=== PATIENT | female | born 1950 | race Caucasian/White ===

== ENCOUNTER 2020-01-21 00:22 | Outpatient (CLI) | payer MEDICARE, SELFPAY ==
[2020-01-21 19:34] LABS: SARS-CoV-2 RNA PCR Negative
== END 2020-01-21 00:23 | disposition home or self-care (01) ==
LOC: ANHCOVIDDT 00:23
PROVIDERS: PCP Internal Medicine; Visit Provider Internal Medicine Gastroenterology
DX: Z01.812 Encounter for preprocedural laboratory examination (principal); Z20.828 Contact with and (suspected) exposure to other viral communicable diseases
CPT/HCPCS: 87635; C9803; U0003

== ENCOUNTER 2020-01-23 01:32 | Day surgery (SDC) | payer MEDICARE, SELFPAY ==
[2020-01-10 14:39] VITALS: BMI 25.9
[2020-01-23 07:51] VITALS: BP 110/82; PULSE 78; RESP 18; TEMP 36.7; O2SAT 100
--- NOTE | 2020-01-23 08:04 | WPDANESEPPF ---
Anes - Initial Pre Proc Eval Procedure: Operation Date: 01/23/20 08:30 Proposed Procedures p Esophagogastroduodenoscopy & Colonoscopy - Ryan Thao MD Date/Time: 01/23/20 08:04 Surgeon: Ryan Thao MD Pre Op Diagnosis: epigastric pain, change in bowel habits Patient Data Age: 69 Gender: F Height: 1.57 m Weight: 63.7 kg Last Vital Signs Temp 36.7 C 01/23/20 07:51 Pulse 78 01/23/20 07:51 Resp 18 01/23/20 07:51 BP 110/82 01/23/20 07:51 Pulse Ox 100 01/23/20 07:51 Allergies Allergy/AdvReac Type Severity Reaction Status Date / Time Penicillins Allergy Unknown Hives Verified 01/23/20 07:49 Sulfa (Sulfonamide Allergy Unknown Hives Verified 01/23/20 07:49 Antibiotics) Home Medications Medication Instructions Recorded Confirmed Type vitamin E mixed 400 unit capsule 400 unit PO DAILY 05/25/19 01/23/20 History pantoprazole 40 mg tablet,delayed 40 mg PO DAILY #90 tablet 09/24/19 01/23/20 Rx release rosuvastatin 40 mg tablet 40 mg PO DAILY #90 tablet 09/24/19 01/23/20 Rx atenolol 25 mg tablet 12.5 mg PO DAILY tablet 12/13/19 01/23/20 History cholestyramine-aspartame 4 gram 4 gm PO BID #231 gm 12/13/19 01/23/20 Rx oral powder lorazepam 0.5 mg tablet 0.5 mg PO DAILY PRN #30 tablet 12/13/19 01/23/20 Rx metformin 500 mg tablet 500 mg PO BID #180 tablet 12/19/19 01/23/20 Rx krill oil 500 mg PO DAILY 01/10/20 01/23/20 History lisinopril 5 mg PO DAILY 01/10/20 01/23/20 History valacyclovir 500 mg PO DAILY 01/10/20 01/23/20 History Patient hx anesthesia problems: none Family hx anesthesia problems: none PMFSH Past Medical History Medical History (Updated 01/21/20 @ 14:35 by Oseas Field DO) Diabetes Gastroesophageal reflux Hypertension Seizure UTI (urinary tract infection) Witnessed seizure-like activity Surgical History Surgical History History of cataract extraction Hx of appendectomy Hx of cholecystectomy Hx of hysterectomy, total Hx of tonsillectomy Social History Social History Smoking status: Former smoker Smoking end date: 05/30/05 Alcohol intake: current Anes - Eval Final PreProcedure Day of Procedure 01/23/20 08:04 Patient weight: overweight Heart: regular rate and rhythm Lungs: clear to auscultation and normal air movement Airway: Mallampati scale class II Neurological: alert and oriented Last oral intake: >/= 8 hours ASA classification: III Emergent: no Anesthetic plan: proceed Anesthesia type and monitoring: general GIVS and standard monitoring Informed Consent: The patient's anesthetic plan and its attendant risks and benefits were discussed with the patient/family/POA. Questions were solicited and answers provided to the satisfaction of the patient/family/POA.
[2020-01-23] MEDS: LACTATED RINGERS 1,000 ML 150 ML IV CONT (08:05)
[2020-01-23 08:14] LABS: Glucose Point of Care 112 (65-105)
--- NOTE | 2020-01-23 08:39 | WPDGICN ---
Assessment and Plan Assessment and plan (1) Encounter for diagnostic colonoscopy due to change in bowel habits: Code(s): R19.4 - Change in bowel habit Status: Acute Assessment and Plan: Patient is lower abdominal pain associated with narrowed stools. Alteration in her bowel habits. Some improvement on taking Questran. Plan is for a colonoscopy to evaluate more thoroughly. This may represent irritable bowel syndrome high fiber supplements are encourage. Further recommendations will be given after endoscopy. Continuing Questran appears appropriate for now. (2) Epigastric abdominal pain: Code(s): R10.13 - Epigastric pain Status: Acute Assessment and Plan: Patient has epigastric abdominal pain. A improving on increasing dose of pantoprazole. She does have a history of peptic ulcer disease. This may represent an acid reflux plan is for EGD to evaluate more thoroughly. GI Consult Note Consult date/time: 01/23/20 08:39 HPI: Isela Kendall is a 69 year old female seen in evaluation at the request of Dr Freddie Stanley. Patient reports irregular bowel movements for the last year. Associated with narrow stools. She also notices a vague lower abdominal discomfort. Patient had diarrhea in the spring but is improved upon taking Questran over recent weeks. She denies any weight loss. She denies any bleeding. Patient also complains of epigastric discomfort. She has a history of peptic ulcer disease. She previously on pantoprazole 40 mg p.o. daily this pain is improved somewhat on increasing pantoprazole to a b.i.d. dose. Patient denies any weight loss. Review of Systems Review of Systems: All systems reviewed & are unremarkable except as noted in HPI and below PMFSH Past Medical History Medical History Diabetes Gastroesophageal reflux Hypertension Seizure UTI (urinary tract infection) Witnessed seizure-like activity Surgical History Surgical History History of cataract extraction Hx of appendectomy Hx of cholecystectomy Hx of hysterectomy, total Hx of tonsillectomy Family History Family History Mother Family history of rheumatoid arthritis, Onset Age: 78 Family history of Alzheimer's disease, Onset Age: 78 Family history of heart disease in male family member before age 55 Patient's mother is , Onset Age: 78 Father Family history of Parkinson's disease, Onset Age: 79 Sibling Family history of coronary artery disease Family history of heart disease in male family member before age 55 Other Family history of cardiovascular disease Family history of malignant neoplasm Hypertension Social History Social History Smoking status: Former smoker Smoking end date: 05/30/05 Alcohol intake: current Meds Home Medications and Allergies Home Medications Medication Instructions Recorded Confirmed Type vitamin E mixed 400 unit capsule 400 unit PO DAILY 05/25/19 01/23/20 History pantoprazole 40 mg tablet,delayed 40 mg PO DAILY #90 tablet 09/24/19 01/23/20 Rx release rosuvastatin 40 mg tablet 40 mg PO DAILY #90 tablet 09/24/19 01/23/20 Rx atenolol 25 mg tablet 12.5 mg PO DAILY tablet 12/13/19 01/23/20 History cholestyramine-aspartame 4 gram 4 gm PO BID #231 gm 12/13/19 01/23/20 Rx oral powder lorazepam 0.5 mg tablet 0.5 mg PO DAILY PRN #30 tablet 12/13/19 01/23/20 Rx metformin 500 mg tablet 500 mg PO BID #180 tablet 12/19/19 01/23/20 Rx krill oil 500 mg PO DAILY 01/10/20 01/23/20 History lisinopril 5 mg PO DAILY 01/10/20 01/23/20 History valacyclovir 500 mg PO DAILY 01/10/20 01/23/20 History Allergies Allergy/AdvReac Type Severity Reaction Status Date / Time Penicillins Allergy Unknown Hives Verified 12/29
[2020-01-23] MEDS: BENZOCAINE (*SP) 60 ML SPRAY CAN (HURRICAINE) 1 SPRAY MUCOUS MEM (08:54)
[2020-01-23 09:25] VITALS: BP 69/34; PULSE 84; RESP 20; O2SAT 94
[2020-01-23 09:30] VITALS: BP 102/58; PULSE 80; RESP 20; O2SAT 95
--- NOTE | 2020-01-23 09:37 | SUR.PHASEII ---
YENI MARADIAGA WITH PT. TREATED LOW BP 64/34, NOW 102/58
[2020-01-23 09:40] VITALS: BP 81/47; PULSE 80; RESP 20; O2SAT 95
[2020-01-23 09:50] VITALS: BP 106/82; PULSE 75; RESP 20; O2SAT 100
[2020-01-23 10:00] VITALS: BP 117/80; PULSE 75; RESP 20; O2SAT 100
== END 2020-01-23 10:18 | disposition home or self-care (01) ==
PROVIDERS: PCP Internal Medicine; Visit Provider Internal Medicine Gastroenterology
PROC: 0DJ08ZZ Inspection of Upper Intestinal Tract, Via Natural or Artificial Opening Endoscopic (ICD-10-PCS; CPT 43235; principal; 2020-01-23 08:30)
DX: R19.4 Change in bowel habit (principal); R10.13 Epigastric pain; K64.8 Other hemorrhoids; K27.9 Peptic ulcer, site unspecified, unspecified as acute or chronic, without hemorrhage or perforation; K21.9 Gastro-esophageal reflux disease without esophagitis; I10 Essential (primary) hypertension; E11.9 Type 2 diabetes mellitus without complications; Z87.891 Personal history of nicotine dependence; Z79.84 Long term (current) use of oral hypoglycemic drugs
CPT/HCPCS: 43239; 45378; 87081; J2704; J7120

== ENCOUNTER 2020-07-03 13:40 | Outpatient (CLI) | payer MEDICARE, SELFPAY ==
--- NOTE | ~2020-07-03 | CT_ITS ---
EXAMINATION: CT lung screening DATE: 07/03/2020 14:33 INDICATION: Central history of nicotine dependence. TECHNIQUE: Computed tomography (CT) of the chest was performed without intravenous contrast. The dose -length product was 67.05 mGy-cm. Automated exposure control and iterative reconstruction technique w ere employed. COMPARISON: CT dated 06/22/2019 FINDINGS: Heart size normal. No significant pleural or pericardial effusion. No thoracic lymphadenopa thy. Status post cholecystectomy. Stable 2 mm right upper lobe nodule, image 14. No significant nielson e to 2 mm left upper lobe nodule. Calcified granuloma right lower lobe. Stable 5 mm right major fissu ral nodule. Mild thoracic spondylosis. No new pulmonary nodules or masses. IMPRESSION: 1. Lung-RADS category 2: Benign appearance or behavior. Continue annual screening with noncontrast lo w-dose chest CT in 12 months. Reviewed, dictated and finalized at location A. [employer] CONSULTANT IMPRESSION: 1. Lung-RADS category 2: Benign appearance or behavior. Continue annual screeni ng with noncontrast low-dose chest CT in 12 months.
== END 2020-07-03 13:41 | disposition home or self-care (01) ==
LOC: ANHIMG 13:43
PROVIDERS: PCP Internal Medicine; Visit Provider Nurse Practitioner
DX: Z12.2 Encounter for screening for malignant neoplasm of respiratory organs (principal); Z87.891 Personal history of nicotine dependence
CPT/HCPCS: 71271

== ENCOUNTER 2020-12-26 08:49 | Outpatient (CLI) | payer MEDICARE, SELFPAY ==
--- NOTE | ~2020-12-26 | XR_ITS ---
EXAMINATION: XR chest 2V EXAM DATE: 12/26/2020 09:05 INDICATION: R06.02 - Shortness of breath 2 weeks. TECHNIQUE: Frontal and lateral projections of the chest obtained and reviewed. Comparison is made to prior examination from 08/31/2018. FINDINGS: The lungs are clear. There are no pleural effusions. The cardiomediastinal silhouette is within normal limits. There is no pneumothorax suspected. The bones and soft tissues are unremarkab le. There are cholecystectomy clips. IMPRESSION: No acute cardiopulmonary findings. Reviewed, dictated and finalized at location B.
== END 2020-12-26 08:50 | disposition home or self-care (01) ==
PROVIDERS: PCP Internal Medicine; Visit Provider Internal Medicine
DX: R06.02 Shortness of breath (principal)
CPT/HCPCS: 71046

== ENCOUNTER 2020-12-31 09:29 | Outpatient (CLI) | payer MEDICARE, SELFPAY ==
--- NOTE | 2021-01-02 14:13 | WPDHOLTEREM ---
Holter/Event Monitor Holter/Event Monitor Date of procedure: 12/31/20 Holter/Event Procedure: 24 Hr Holter Monitor Indications: Tachycardia Conclusion: 1. 24 hour holter monitor on 12/31/20. 2. Underlying rhythm is sinus rhythm. HR range 60-133 bpm; average HR 83. 3. There are 14 supraventricular premature complexes and 1 supraventricular couplet and 1 supraventricular triplet. No supraventricular tachycardia. 4. There are 5 premature ventricular complexes. No ventricular tachycardia. 5. No sinoatrial or atrioventricular blocks. No significant pauses greater than 2 seconds. 6. No symptoms available for correlation.
== END 2020-12-31 09:30 | disposition home or self-care (01) ==
PROVIDERS: PCP Internal Medicine; Visit Provider Internal Medicine
DX: R00.0 Tachycardia, unspecified (principal)
CPT/HCPCS: 93225; 93226

== ENCOUNTER 2021-03-20 06:38 | Outpatient (CLI) | payer MEDICARE, SELFPAY ==
--- NOTE | ~2021-03-20 | XR_ITS ---
XR shoulder RT min 2V 03/20/2021 07:11 INDICATION: Right shoulder pain PROCEDURE: 4 views right shoulder COMPARISON: No prior studies for comparison. FINDINGS: Fracture, dislocation or subluxation is not identified. The soft tissues appear within norm al limits. No foreign bodies are identified. IMPRESSION: 1: NO ACUTE BONE OR JOINT ABNORMALITY IDENTIFIED. Reviewed, dictated and finalized at location B.
--- NOTE | ~2021-03-20 | MR_ITS ---
EXAMINATION: MR shoulder RT wo con DATE: 03/20/2021 07:56 INDICATION: Pain in unspecified shoulder. TECHNIQUE: Magnetic resonance imaging (MRI) of the right shoulder was performed without intravenous c ontrast. Sequences included axial PD-weighted FS FSE, coronal oblique PD-weighted FS FSE and T2-weigh kristopher FS FSE, and sagittal oblique T2-weighted FS FSE and T1-weighted FSE. COMPARISON: Right shoulder radiographs 03/20/2021 FINDINGS: Coracoacromial arch: The acromion undersurface is flat in morphology (type I). There is severe acromioclavicular joint ost eoarthritis including inferiorly directed osteophytes. There is mild subacromial/subdeltoid bursitis. Rotator cuff: There is moderate supraspinatus and infraspinatus tendinopathy. Teres minor tendon is normal. There i s a bursal sided partial-thickness tear of subscapularis tendon. There is no asymmetric fatty atrophy of the rotator cuff muscle bellies. Biceps tendon and glenoid labrum: Biceps tendon is in bicipital groove. There is tendinopathy and partial tear of proximal biceps tendo n. A portion of the biceps tendon is medially subluxed into the subscapularis tendon tear. There is e xtensive tearing of the glenoid labrum anterior and posterior to the biceps anchor (SLAP tear). Fluid: There is a moderate-sized glenohumeral joint effusion. Bones/cartilage: There is cartilage surface irregularity of glenoid and humeral head with tiny osteophytes. IMPRESSION: 1. Bursal-sided partial-thickness tear of subscapularis tendon. 2. Partial tear of biceps tendon, a portion of which is medially subluxed into the subscapularis tend on tear. 3. Mild glenohumeral joint chondrosis. SLAP tear. 4. Severe acromioclavicular joint osteoarthritis. 5. Moderate-sized glenohumeral joint effusion. 6. Mild subacromial/subdeltoid bursitis. Reviewed, dictated and finalized at location A. IMPRESSION: 1. Bursal-sided partial-thickness tear of subscapularis tendon. 2. Partial tear of biceps tendon, a portion of which is medially subluxed into the subscapularis tendon tear. 3. Mild glenohumeral joint chondrosis. SLAP tear. 4. Severe acromioclavicular joint osteoarthritis. 5. Moderate-sized glenohumeral joint effusion. 6. Mild subacromial/subdeltoid bursitis.
[2021-03-20 08:29] LABS: Basophils Percent Auto 0.6 % (0.2-1.2); Eosinophils Absolute Auto 0.2 K/mm3 (0-0.3); Eosinophils Percent Auto 3.2 % (0-4.4); Hemoglobin 9.8 g/dL (12.0-15.0); Immature Granulocyte Absolute 0.01 K/mm3 (0.00-0.031); Immature Granulocyte Percent A 0.2 % (0-0.5); Lymphocytes Absolute Auto 1.92 K/mm3 (0.9-3.2); Lymphocytes Percent Auto 31.1 % (18.3-44.2); Mean Corpuscular HGB Conc 30.6 g/dl (32-36); Mean Corpuscular Hemoglobin 26.7 pg (26-34); Mean Corpuscular Volume 87.2 fl (80-100); Mean Platelet Volume 10.3 fl (7.4-10.4); Monocytes Absolute Auto 0.6 K/mm3 (0.1-0.6); Monocytes Percent Auto 9.7 % (2.6-8.5); Neutrophils Absolute Auto 3.4 K/mm3 (1.3-6.7); Neutrophils Percent Auto 55.2 % (45.5-73.1); Platelet Count Result 294 k/mm3 (150-375); Red Blood Count 3.67 M/mm3 (4.2-5.4); Red Cell Distribution Width 18.5 % (11.5-14.5); White Blood Count 6.2 K/mm3 (4.5-10.0)
[2021-03-20 08:47] LABS: Iron 33 ug/dL (37-170)
[2021-03-20 08:55] LABS: Percent Iron Saturation 7 % (20-50)
== END 2021-03-20 06:39 | disposition home or self-care (01) ==
PROVIDERS: PCP Internal Medicine; Visit Provider Internal Medicine
DX: D64.9 Anemia, unspecified (principal); M19.011 Primary osteoarthritis, right shoulder; M75.51 Bursitis of right shoulder; M25.411 Effusion, right shoulder; S43.431A Superior glenoid labrum lesion of right shoulder, initial encounter; X58.XXXA Exposure to other specified factors, initial encounter
CPT/HCPCS: 36415; 73030; 73221; 83540; 83550; 85025

== ENCOUNTER 2021-04-02 11:09 | Outpatient (CLI) | payer MEDICARE, SELFPAY ==
--- NOTE | ~2021-04-02 | MMUS_ITS ---
EXAMINATION: MM diagnostic mayra BI w julio, US breast RT limited HISTORY: Breast pain TECHNIQUE: Additional 3-D tomosynthesis images of the breasts were performed and synthetic 2-D images were generated. CAD analysis was submitted and interpreted. High resolution Limited right breast ult rasound was performed. COMPARISON: Comparison to multiple prior studies sequentially, with oldest reviewed study dated 02/08. BREAST PARENCHYMAL COMPOSITION: Breast composed of scattered areas of fibroglandular density FINDINGS: MAMMOGRAPHIC FINDINGS: There are no suspicious masses, calcifications or architectural distortion in either breast to sugges t malignancy. ULTRASOUND: Limited right breast ultrasound: At 9:00, 2 cm from the nipple there is a 5 mm cyst. At 10:00, 3 cm f rom the nipple, there is a 4 mm cyst. No suspicious masses to suggest malignancy. IMPRESSION: 1. No evidence for malignancy in either breast. 2. Routine yearly screening mammogram and regular clinical breast examination are recommended. BI-RADS Category 2: Benign finding(s). Reviewed, dictated and finalized at location A. IMPRESSION: 1. No evidence for malignancy in either breast. 2. Routine yearly screening mammogram and regular clinical breast examination a re recommended. BI-RADS Category 2: Benign finding(s).
== END 2021-04-02 11:10 | disposition home or self-care (01) ==
LOC: ANHIMG 11:10
PROVIDERS: PCP Internal Medicine; Visit Provider Internal Medicine
DX: N64.4 Mastodynia (principal); R92.8 Other abnormal and inconclusive findings on diagnostic imaging of breast
CPT/HCPCS: 76642; 77062; 77066; G0279

== ENCOUNTER → 2021-05-06 02:26 | Outpatient (CLI) | payer MEDICARE, SELFPAY ==
[2021-05-06 13:14] LABS: Influenza Control Positive
[2021-05-06 20:25] LABS: SARS-CoV-2 RNA PCR Negative
== END ==
PROVIDERS: PCP Internal Medicine; Visit Provider Internal Medicine
DX: R68.89 Other general symptoms and signs (principal); Z20.822 Contact with and (suspected) exposure to COVID-19
CPT/HCPCS: 87804; C9803; U0003; U0005

== ENCOUNTER 2022-01-11 10:37 | Outpatient (CLI) | payer MEDICARE, SELFPAY ==
--- NOTE | ~2022-01-11 | CT_ITS ---
EXAMINATION: CT lung screening DATE: 01/11/2022 11:06 INDICATION: Personal history of nicotine dependence, prior smoker with 35 pack year history TECHNIQUE: Computed tomography (CT) of the chest was performed without intravenous contrast. The dose -length product (DLP) was 72.82 mGy-cm. Automated exposure control and iterative reconstruction techn ique were employed. COMPARISON: 07/03/2020 FINDINGS: There are stable pulmonary nodules measuring up to 2 mm. A 4 mm fissural lymph node is note d in the major fissure on the right. The lungs are free of acute opacities. No pleural effusion or pn eumothorax. No pathologically enlarged thoracic lymph nodes are identified. The heart size is normal. The gallbladder is surgically absent. There is mild thoracic spondylosis. IMPRESSION: 1. Lung-RADS category 2: Benign appearance or behavior. Continue annual screening with noncontrast lo w-dose chest CT in 12 months. Reviewed, dictated and finalized at location A. IMPRESSION: 1. Lung-RADS category 2: Benign appearance or behavior. Continue annual screeni ng with noncontrast low-dose chest CT in 12 months.
== END 2022-01-11 10:38 | disposition home or self-care (01) ==
PROVIDERS: PCP Internal Medicine; Visit Provider Internal Medicine
DX: Z12.2 Encounter for screening for malignant neoplasm of respiratory organs (principal); Z87.891 Personal history of nicotine dependence
CPT/HCPCS: 71271

== ENCOUNTER 2022-01-15 09:52 | Outpatient (CLI) | payer MEDICARE, SELFPAY ==
--- NOTE | ~2022-01-15 | NM_ITS ---
EXAMINATION: NM yaniv stress w perfusion DATE: 01/15/2022 12:29 INDICATION: Chest pain TECHNIQUE: Rest images were obtained following intravenous administration of 10.4 mCi Tc99m tetrofosm in (Myoview). The patient was infused intravenously with Lexiscan (Regadenoson). Then, 33.6 mCi Tc99m tetrofosmin (Myoview) was administered intravenously, and stress images were obtained. Data was joann nstructed into short axis and horizontal and vertical long axis SPECT images. Gated SPECT images were also obtained. COMPARISON: None. FINDINGS: There is no definite reversible or fixed perfusion abnormality to suggest ischemia or infar ction. There is normal left ventricular chamber size, wall motion and ejection fraction. Left ventr icular ejection fraction measures 66%. IMPRESSION: 1. Normal myocardial perfusion at rest and during stress. 2. Left ventricular ejection fraction measuring 66%. Reviewed, dictated and finalized at location A.
--- NOTE | 2022-01-15 10:34 | EST_ITS ---
Patient Info Name: Isela Kendall Age: 71 years : 1950 Gender: Female Ht: 62 in Wt: 142 lbs BSA: 1.69 m2 HR: 78 bpm BP: 136 / 86 mmHg Heart Rhythm: Sinus Rhythm Exam Date: 01/15/2022 11:19 AM Exam Location: [facility] Stress Patient Status: Outpatient Admit Date: 01/15/2022 Staff Ordering Physician: Freddie Stanley DO Attending Provider: Freddie Stanley DO Exercise Technologist: Evita Beckham CT Exercise Physician: Ezequiel Grayson DO Exam Type: CA stress yaniv w NM Study Info Indications R07.89 - Other chest pain A regadenoson stress test was performed. Summary 1. 1. Negative lexiscan stress test for ischemic ST changes by ECG criteria. 2. 2. Stable hemodynamics throughout the test. 3. 3. Nuclear scan to follow and will be reported separately. Please correlate with it. 4. 4. Patient informed of the above results. Protocol: Lexiscan Stress ECG Details Stage: REST Duration (min): 1 min : 7 sec HR (bpm): 77 SBP (mmHg): 136 DBP (mmHg): 86 Stage: REST Duration (min): 9 min : 2 sec HR (bpm): 82 SBP (mmHg): 136 DBP (mmHg): 86 Stage: STAGE 1 Duration (min): 0 min : 59 sec HR (bpm): 105 SBP (mmHg): 143 DBP (mmHg): 87 Stage: RECOVERY Duration (min): 1 min : 0 sec HR (bpm): 99 SBP (mmHg): 143 DBP (mmHg): 87 Stage: RECOVERY Duration (min): 2 min : 0 sec HR (bpm): 97 SBP (mmHg): 143 DBP (mmHg): 87 Stage: RECOVERY Duration (min): 3 min : 0 sec HR (bpm): 93 SBP (mmHg): 131 DBP (mmHg): 83 Stage: RECOVERY Duration (min): 3 min : 8 sec HR (bpm): 94 SBP (mmHg): 131 DBP (mmHg): 83 Rest HR: 82 bpm Peak HR: 105 bpm Rest Sys BP: 136 mmHg Peak Sys BP: 143 mmHg Max Pred HR: 151 bpm % Max Pred HR: 70 % Target HR: 128 bpm Max RPP: 15,015 bpm*mmHg Termination Reason: Completed protocol Cardiac Symptoms: Shortness of breath Total Time: 1 min : 0 sec Rest Silverman BP: 86 mmHg Peak Silverman BP: 87 mmHg Total Dose: 0.4 mg Resting ECG Sinus rhythm. Stress ECG No ST changes. Arrhythmias None. Report Signatures
== END 2022-01-15 09:53 | disposition home or self-care (01) ==
PROVIDERS: PCP Internal Medicine; Visit Provider Internal Medicine
DX: R07.89 Other chest pain (principal)
CPT/HCPCS: 78452; 93017; A9502

== ENCOUNTER 2022-02-22 16:32 | Emergency (ER) | payer MEDICARE, SELFPAY ==
[2022-02-22 16:55] VITALS: BP 159/95; PULSE 79; RESP 16; TEMP 36.5; O2SAT 98
[2022-02-22 17:09] VITALS: BP 159/95; PULSE 79; RESP 16; TEMP 36.5; O2SAT 98
--- NOTE | 2022-02-22 17:16 | ED.SKABFB ---
HPI - Skin/Abscess/Foreign Bdy General Chief complaint: Skin/Abscess/Foreign Body Stated complaint: bite on right leg Time Seen by Provider: 02/22/22 17:15 Source: patient, RN notes reviewed and old records reviewed Mode of arrival: ambulatory Limitations: no limitations History of Present Illness HPI narrative: 71-year-old female who [facility] with complaints of being bitten by some type of insect on Tuesday last week to the right lower leg at [place] area with area remaining tender to palpation with localized redness bruising type of skin around bite. Patient does not have warmth to the tissue area but is concerned due to being diabetic. Patient reports that she did kill a brown recluse spider the same day when she was cleaning under bed. patient denies any fevers, chills or sweats, denies any acute pain at site. Patient reports that she just completed a Medrol dose pack that was ordered by her orthopedic doctor. complaint: insect bite/sting Onset (ago): day(s) (5 days ago) Related Data Home Medications Medication Instructions Recorded Confirmed krill oil 500 mg capsule 500 mg PO DAILY 01/10/20 02/22/22 cholecalciferol (vitamin D3) 25 25 mcg PO DAILY 06/04/21 02/22/22 mcg (1,000 unit) capsule vitamins A,C,T-dzen-myptvu 2,148 2 tablet PO BID 06/04/21 02/22/22 mcg-113 mg-45 mg-17.4 mg tablet (PreserVision AREDS) meloxicam 7.5 mg tablet 7.5 mg PO DAILY 02/22/22 02/22/22 Allergies Allergy/AdvReac Type Severity Reaction Status Date / Time Penicillins Allergy Severe Anaphylaxis Verified 02/22/22 17:02 Sulfa (Sulfonamide Allergy Severe Anaphylaxis Verified 02/22/22 17:02 Antibiotics) Review of Systems Review of Systems: CONSTITUTIONAL: Denies fever, chills, or sweats. EYES: Denies visual changes, redness, or discharge. ENT: Denies rhinorrhea, congestion, sore throat, or otalgia. CARDIOVASCULAR: Denies chest pain, palpitations, or edema. RESPIRATORY: Denies cough or dyspnea. GASTROINTESTINAL: Denies abdominal pain, nausea, vomiting, or diarrhea. GENITOURINARY: Denies dysuria or hematuria. SKIN: Positive for insect bite to right lower leg at t[place]res area with some surrounding red/bruising type of tissue around bite. MUSCULOSKELETAL: Denies back pain, joint pain, or myalgia. NEUROLOGIC: Denies headache, numbness, or weakness. PSYCHIATRIC: Denies anxiety or depression. All systems reviewed & are unremarkable except as noted in HPI and below PMFSH Past Medical History Medical History Acute cholecystitis Arthritis Benign paroxysmal positional vertigo of left ear BMI 25.0-25.9,adult BMI 28.0-28.9,adult Breast cancer screening Chest discomfort Cholecystitis Chronic cholecystitis Colon cancer screening Diabetes Encounter for Routine Gynecological Examination FHx: hemochromatosis Gallbladder disorder Gastroesophageal reflux Generalized headaches HSV (herpes simplex virus) infection Hypercholesteremia Hyperglycemia Hypertension Low back pain On fci drug therapy Pain of both hip joints Personal history of nicotine dependence Preoperative clearance Primary skin basal cell carcinoma Retina disorder, right Right rotator cuff tear RUQ abdominal pain Screening for hypothyroidism Screening for osteoporosis Seizure Serum calcium elevated Skin cancer UTI (urinary tract infection) UTI symptoms Vaginal delivery x2 Witnessed seizure-like activity one time Surgical History Surgical History History of bilateral tubal ligation 1979 History of cataract extraction bilateral History of colposcopy 2007 History of gynecologic surgery 2007, cervical cryosurgery History of left oophorectomy History of right oophorectomy 1987 History of tonsillectomy and adenoidectomy 1963 Hx of appendectomy 1981 Hx of cholecystectomy 2017 Hx of hysterectomy, total 1981 Hx of LASIK right eye
== END 2022-02-22 17:43 | disposition home or self-care (01) ==
PROVIDERS: Emergency Provider Registered Nurse; PCP Internal Medicine
DX: S80.861A Insect bite (nonvenomous), right lower leg, initial encounter (principal); W57.XXXA Bitten or stung by nonvenomous insect and other nonvenomous arthropods, initial encounter; E11.9 Type 2 diabetes mellitus without complications; K21.9 Gastro-esophageal reflux disease without esophagitis; E78.00 Pure hypercholesterolemia, unspecified; I10 Essential (primary) hypertension; Z85.828 Personal history of other malignant neoplasm of skin; Z98.42 Cataract extraction status, left eye; Z98.41 Cataract extraction status, right eye; M19.90 Unspecified osteoarthritis, unspecified site
CPT/HCPCS: 99213; G0463

== ENCOUNTER → 2022-02-27 08:48 | Outpatient (CLI) | payer MEDICARE, SELFPAY ==
--- NOTE | ~2022-02-27 | MR_ITS ---
EXAMINATION: MR lumbar spine wo con DATE: 02/27/2022 09:26 INDICATION: Chronic low back pain. TECHNIQUE: Magnetic resonance imaging (MRI) of the lumbar spine was performed without intravenous con trast. Sequences included sagittal T2-weighted FSE, sagittal T2-weighted FS FSE, sagittal T1-weighted FSE, and axial T2-weighted FSE. COMPARISON: None FINDINGS: There is 5 degrees levocurvature of lumbar spine. Vertebral body heights are normal. There is mildly decreased disc height at L1-L2. The distal spinal cord signal intensity is normal. The conu s medullaris is at L1-L2. The following disc levels are specifically discussed: L1-L2: The disc is bulging. There is mild bilateral facet joint osteoarthritis. There is mild bilater al neural foraminal stenosis. There is mild central canal stenosis. L2-L3: The disc is bulging. There is mild bilateral facet joint osteoarthritis. There is mild left ne ural foraminal stenosis. There is mild central canal stenosis. L3-L4: The disc is bulging. There is severe bilateral facet joint osteoarthritis. There is mild bilat eral neural foraminal stenosis. There is mild central canal stenosis. L4-L5: There is mildly bulging and has an annular fissure. There is severe bilateral facet joint oste oarthritis. There is mild bilateral neural foraminal stenosis. There is no central canal stenosis. L5-S1: The disc does not extend beyond the endplate margin. There is severe bilateral facet joint ost eoarthritis. There is mild bilateral neural foraminal stenosis. There is no central canal stenosis. IMPRESSION: 1. Mild lumbar spondylosis. Reviewed, dictated and finalized at location A. IMPRESSION: 1. Mild lumbar spondylosis.
== END ==
PROVIDERS: PCP Internal Medicine; Visit Provider Orthopaedic Surgery
DX: M47.896 Other spondylosis, lumbar region (principal)
CPT/HCPCS: 72148

== ENCOUNTER 2022-10-19 08:06 | Outpatient (CLI) | payer MEDICARE, SELFPAY ==
--- NOTE | ~2022-10-19 | XR_ITS ---
EXAMINATION: XR shoulder RT min 2V DATE: 10/19/2022 08:33 INDICATION: Right shoulder pain. TECHNIQUE: 3 views of right shoulder were obtained. COMPARISON: Right shoulder radiographs 03/20/2021 FINDINGS: Bone alignment is normal. No fracture. There is mild osteoarthritis of glenohumeral joint a nd severe osteoarthritis of acromioclavicular joint. IMPRESSION: 1. Polyarticular osteoarthritis. Reviewed, dictated and finalized at location A.
== END 2022-10-19 08:07 | disposition home or self-care (01) ==
LOC: CHSIMG 08:09
PROVIDERS: PCP Internal Medicine; Visit Provider Orthopaedic Surgery
DX: M25.511 Pain in right shoulder (principal); M19.011 Primary osteoarthritis, right shoulder
CPT/HCPCS: 73030

== ENCOUNTER → 2022-10-29 07:24 | Outpatient (CLI) | payer MEDICARE, SELFPAY ==
--- NOTE | ~2022-10-29 | MR_ITS ---
MRI of the right shoulder Technique: Axial proton-density fat-sat images, coronal proton density fat-sat and T2 fat-sat images, and sagittal T1-weighted and T2 fat-sat images were acquired. Clinical History: Rotator cuff tear COMPARISON: 03/20/2021 Findings: There is advanced degenerative change of the AC joint, with subacromial spur and bony produ ctive change at the distal clavicle. Coracoclavicular, coracoacromial, and coracohumeral ligaments ar e intact. There is moderate tendinosis of the distal supraspinatus tendon, without definite partial or full-thi ckness tear. There is mild infraspinatus tendinosis. There is mild subscapularis tendinosis. Tendon o f the long head of the biceps is intact. There is probable degenerative attenuation of the superior labrum extending to the anterosuperior por tion. Inferior glenohumeral ligament is intact. There is minimal glenohumeral joint effusion. No significan t degenerative change identified. No fluid distention of the subacromial/subdeltoid bursa. No muscle atrophy or edema. Impression: Rotator cuff tendinosis diffusely. No definite partial or full-thickness tear. Degenerative attenuation of the superior labrum extending to the anterosuperior portion. Advanced AC joint degenerative change. Reviewed, dictated and finalized at [facility]. Impression: Rotator cuff tendinosis diffusely. No definite partial or full-thickness tear. Degenerative attenuation of the superior labrum extending to the anterosuperior portion. Advanced AC joint degenerative change.
== END ==
PROVIDERS: PCP Internal Medicine; Visit Provider Orthopaedic Surgery
DX: M75.101 Unspecified rotator cuff tear or rupture of right shoulder, not specified as traumatic (principal); M19.011 Primary osteoarthritis, right shoulder
CPT/HCPCS: 73221

== ENCOUNTER 2022-12-04 08:10 | Outpatient (CLI) | payer MEDICARE, SELFPAY ==
--- NOTE | ~2022-12-04 | MM_ITS ---
EXAMINATION: MM screening mayra BI w julio HISTORY: Screening mammogram TECHNIQUE: Craniocaudal and mediolateral oblique 3-D tomosynthesis images were obtained and synthetic 2-D images were generated. CAD analysis was submitted and interpreted. COMPARISON: 04/02/2021 BREAST PARENCHYMAL COMPOSITION:There are scattered areas of fibroglandular density. FINDINGS: No suspicious mass, calcification, or architectural distortion are identified in either juana ast to suggest malignancy. There has been no suspicious interval change. IMPRESSION: No mammographic evidence of malignancy. Recommend routine screening mammography in one year. BI-RADS Category 1: Negative Reviewed, dictated and finalized at location .
== END 2022-12-04 08:11 | disposition home or self-care (01) ==
LOC: ANHIMG 08:14
PROVIDERS: PCP Family Medicine; Visit Provider Family Medicine
DX: Z12.31 Encounter for screening mammogram for malignant neoplasm of breast (principal)
CPT/HCPCS: 77063; 77067

== ENCOUNTER 2023-05-09 13:44 | Outpatient (CLI) | payer MEDICARE, SELFPAY ==
--- NOTE | ~2023-05-09 | DEXA_ITS ---
Bone Density Report Name: LISSET GARCIA Age: 73 Sex: Female Ethnicity: White Date of : 1950 Indication: postmenopausal; screening for osteoporosis; prior fracture; hysterectomy; Referring Provider: NADEEM LERNER Study: Bone densitometry was performed. Exam Date: May 09, 2023 Accession number: [id number] Bone Density: Region BMD T-score Z-score Classification AP Spine(L1-L4) 1.068 0.2 2.4 Normal Femoral Neck (Left) 0.825 -0.2 1.6 Normal Total Hip (Left) 0.923 -0.2 1.4 Normal Femoral Neck (Right) 0.745 -0.9 0.9 Normal Total Hip (Right) 0.864 -0.6 0.9 Normal Total Hip Mean 0.893 -0.4 1.2 Normal World Health Organization criteria for BMD impression classify patients as: Normal (T-score at or above -1.0), Osteopenia (T-score between -1.0 and -2.5), or Osteoporosis (T-score at or below -2.5). 10-year Fracture Risk: FRAX not reported because: All T-scores for Spine Total, Hip Total, Femoral Neck at or above -1.0 Clinical Information Provided by Patient: Has had a low trauma fracture Has used the following medications: Vitamin D Has the following medical conditions: Hysterectomy Patient maximum height was 62.5 Menopause Age: 35 Onset of menses at age 13 Number of children 2 Impression: The patient has normal bone mass. The patient has risk factors, including: previous fracture. Discussion: BONE DENSITY IS ABOVE THE MINIMUM DESIRABLE LEVEL AT ALL SKELETAL SITES TESTED. This patient?s bone mineral density is above the minimum desirable level (T-score -1.0 or better) at all sites measured. The patient should follow a healthful lifestyle (good nutrition with adequate calcium and vitamin D, and appropriate weight-bearing exercise). Follow-Up: Consider repeating this study in 5 years or sooner if there is some new clinical indication. Reported by: ASHVIN on 05/09/2023 2:19:00 PM. Reviewed, dictated and finalized at [facility]
== END 2023-05-09 13:45 | disposition home or self-care (01) ==
LOC: ANHIMG 13:46
PROVIDERS: PCP Family Medicine; Visit Provider Family Medicine
DX: Z78.0 Asymptomatic menopausal state (principal); D50.9 Iron deficiency anemia, unspecified; D64.9 Anemia, unspecified; F41.9 Anxiety disorder, unspecified; M54.40 Lumbago with sciatica, unspecified side
CPT/HCPCS: 77080

== ENCOUNTER 2024-02-22 08:45 | Outpatient (CLI) | payer MEDICARE, SELFPAY ==
--- NOTE | ~2024-02-22 | MM_ITS ---
EXAMINATION: MM screening mayar BI w julio HISTORY: Screening TECHNIQUE: Craniocaudal and mediolateral oblique 3-D tomosynthesis images were obtained and synthetic 2-D images were generated. CAD analysis was submitted and interpreted. COMPARISON: Comparison to multiple prior studies sequentially, with oldest reviewed study dated 08/2020. BREAST PARENCHYMAL COMPOSITION: Not dense: There are scattered areas of fibroglandular density. FINDINGS: There is no evidence of suspicious mass, calcification, or architectural distortion to sugg est malignancy in either breast. There has been no suspicious interval change. IMPRESSION: 1. No mammographic evidence of malignancy. 2. Recommend routine screening mammography in one year. BI-RADS Category 1: Negative Reviewed, dictated and finalized at location B.
== END 2024-02-22 08:46 | disposition home or self-care (01) ==
LOC: ANHIMG 08:49
PROVIDERS: PCP Family Medicine; Visit Provider Family Medicine
DX: Z12.31 Encounter for screening mammogram for malignant neoplasm of breast (principal)
CPT/HCPCS: 77063; 77067

== ENCOUNTER 2024-06-05 10:58 | Outpatient (CLI) | payer MEDICARE, SELFPAY ==
--- NOTE | ~2024-06-05 | CT_ITS ---
CT abd pelvis lumbar wo con Ordering provider: Baldo Bower MD History: 74 years Female with . R10.9 - Unspecified abdominal pain . Comparison: None. Technique: CT abdomen and pelvis without IV and without oral contrast. Automated exposure control and iterative reconstruction technique were employed. The dose-length product was 339.14 mGy-cm. Findings: VISUALIZED LOWER CHEST: Dependent atelectatic changes in the right lung base. UPPER ABDOMINAL ORGANS: Liver: Lobulated outline suggestive of liver cirrhosis. Gallbladder: Status post cholecystectomy. Spleen: Normal. Stomach/duodenum: Small sliding hiatus hernia. Pancreas: Normal. Adrenals: Normal. Kidneys: Tiny stone in the left kidney lower pole. Right hydronephrotic changes. Dilated right ureter. The right lower ureter is not demonstrated due to artifacts. Highly suggestive stone at the right ureterovesical junction is not excluded. PELVIC ORGANS: The bladder is underfilled. BOWEL AND MESENTERY: Colon: No evidence of diverticulitis. Fecal material is seen in the colon. No evidence of appendiciti s. Small Bowel: Normal. No obstruction. Peritoneum/mesentery: No free air or free fluid. No mesenteric lymphadenopathy. RETROPERITONEUM: Mild atheromatous disease of the abdominal aorta. No retroperitoneal lymphadenopat hy. MUSCULOSKELETAL: Superficial soft tissues: The superficial soft tissues are normal. Bones: Age appropriate degenerative changes of the spine. Bilateral sacroiliacs. Right hip arthroplas ty. IMPRESSION: 1. Right hydronephrotic changes and hydroureter with highly suggestive stone at the ureterovesical j unction. 2. Liver cirrhosis. 3. Constipation. 4. Tiny stone in the left kidney lower pole. CT abd pelvis lumbar wo con Ordering provider: Baldo Bower MD History: 74 years Female with . R10.9 - Unspecified abdominal pain . Comparison: None. Technique: CT lumbar spine without contrast. Automated exposure control and iterative reconstruction technique were employed. The dose-length product was 339.14 mGy-cm. FINDINGS: VERTEBRAE: Normal height and alignment. No subluxation or visible acute fracture. DISC SPACES: Slight narrowing of L1-L2. Facet joint osteoarthritic changes at L4-L5 and L5-S1 bilater ally. T12-L1: No stenosis. L1-L2: No stenosis. L2-L3: No stenosis. L3-L4: No stenosis. L4-L5: No stenosis. Mild diffuse disc bulge. L5-S1: No stenosis. Mild diffuse disc bulge. PARASPINOUS SOFT TISSUES: Mild atheromatous disease of the abdominal aorta. IMPRESSION: No acute osseous abnormality. Degenerative disc disease at the level of L1-2. Facet joint disease at the level of L4-L5 and L5. Mild diffuse disc bulge at the level of L4-L5 and L5 Reviewed, dictated and finalized at location A. ET FORMER IMPRESSION: 1. Right hydronephrotic changes and hydroureter with highly suggestive stone a t the ureterovesical junction. 2. Liver cirrhosis. 3. Constipation. 4. Tiny stone in the left kidney lower pole. CT abd pelvis lumbar wo con Ordering provider: Baldo Bower MD History: 74 years Female with . R10.9 - Unspecified abdominal pain . Comparison: None. Technique: CT lumbar spine without contrast. Automated exposure control and it erative reconstruction technique were employed. The dose-length product was 339 .14 mGy-cm. FINDINGS: VERTEBRAE: Normal height and alignment. No subluxation or visible acute fractur e. DISC SPACES: Slight narrowing of L1-L2. Facet joint osteoarthritic changes at L 4-L5 and L5-S1 bilaterally. T12-L1: No stenosis. L1-L2: No stenosis. L2-L3: No stenosis. L3-L4: No stenosis. L4-L5: No stenosis. Mild diffuse disc bulge. L5-S1: No stenosis. Mild diffuse disc bulge. PARASPINOUS SOFT TISSUES: Mild atheromatous disease of the abdominal aorta.
[2024-06-05 11:22] LABS: Basophils Percent Auto 0.7 % (0.2-1.2); Eosinophils Absolute Auto 0.4 K/mm3 (0-0.3); Eosinophils Percent Auto 6.1 % (0-4.4); Hemoglobin 12.6 g/dL (12.0-15.0); Immature Granulocyte Absolute 0.01 K/mm3 (0.00-0.031); Immature Granulocyte Percent A 0.2 % (0-0.5); Lymphocytes Absolute Auto 1.39 K/mm3 (0.9-3.2); Lymphocytes Percent Auto 23.6 % (18.3-44.2); Mean Corpuscular HGB Conc 32.3 g/dl (32-36); Mean Corpuscular Hemoglobin 32.1 pg (26-34); Mean Corpuscular Volume 99.2 fl (80-100); Mean Platelet Volume 9.9 fl (7.4-10.4); Monocytes Absolute Auto 0.6 K/mm3 (0.1-0.6); Monocytes Percent Auto 9.8 % (2.6-8.5); Neutrophils Absolute Auto 3.5 K/mm3 (1.3-6.7); Neutrophils Percent Auto 59.6 % (45.5-73.1); Platelet Count Result 181 k/mm3 (150-375); Red Blood Count 3.93 M/mm3 (4.2-5.4); Red Cell Distribution Width 12.8 % (11.5-14.5); White Blood Count 5.9 K/mm3 (4.5-10.0)
[2024-06-05 11:39] LABS: Add Urine Microscopic? YES; Appearance Urine Clear (Clear); Bacteria Urine None Seen /hpf; Bilirubin Urine Negative (Negative); Blood Urine 1+ (Negative); Color Urine Yellow (Yellow); Glucose Urine UA Negative (Negative); Ketones Urine Trace mg/dL (Negative); Leukocyte Esterase Ur 1+ LEU/UL (Negative); Nitrate Urine Negative (Negative); Non Pathogenic Casts 0-2; Protein Urine Trace mg/dL (Negative); Squamous Epithelial Cell Urine None Seen /hpf (Few)
--- OUTSIDE RECORDS SUMMARY | 2024-06-12 07:26 | XMS_ITS | Clinical Summary ---
Author Organization [facility] Address [address] [place] [address]. [address] [address] Care Team Providers Care Scrap Materials Buyer Name Role Phone Unavailable Primary Care Provider Unavailabl e Social History Tobacco Use Types Packs/Day Years Used Date Smoking Tobacco: Never Assessed Comments Unknown Sex and Gender Information Value Date Recorded Sex Assigned at Not on file Legal Sex Female 8:18 PM CDT Gender Identity Not on file Sexual Orientation Not on file Last Filed Vital Signs Vital Sign Reading Time Taken Comments Blood Pressure 110/70 03/25/2014 1:09 PM CDT Pulse 85 03/25/2014 1:09 PM CDT Temperature - - Respiratory Rate - - Oxygen Saturation - - Inhaled Oxygen Concentration - - Weight 66.2 kg (146 lb) 03/25/2014 1:09 PM CDT Height 158.8 cm (5' 2.5 ) 03/25/2014 1:09 PM CDT Body Mass Index 26.28 03/25/2014 1:09 PM CDT Plan of Treatment Health Maintenance Due Date Last Done Comments Colorectal Cancer Screening Colonoscopy (10 Years) 1950 Hepatitis C 1970 DTaP, Tdap and Td Vaccines ( 1 - Tdap) 1971 Mammogram Screening 1992 Zoster Vaccines (1 of 2) 2002 Dexa Scan (General) 2017 Pneumococcal Vaccine: 65+ Years (1 of 1 - PCV) 2017 COVID-19 Vaccine ( - 2023-2 5 season) 2024 Influenza Adult (#1) 2024 02/26/2014, 03/28/2012 RSV Immunization or 60+ Years (1 - 1-dose 75+ series) 2027 Meningococcal Vaccine Aged Out No checo gerardo eligible based on patient's age to complete this topic RSV Immunizations Under 20 Months Aged Out No longer eligible b ased on patient's age to complete this topic
--- OUTSIDE RECORDS SUMMARY | 2024-06-12 07:26 | XMS_ITS | CONTINUITY OF CARE DOCUMENT ---
Author Name michellereshma anuradha Address Unknown Organization [facility] Address [address] [place] [address] Phone [phone] Care Team Providers Care Chemical Laboratory Assistant Name Role Phone Carlos Eduardo Roman MD Unavailable [phone] Oseas Crespo DO Unavailable [phone] NAVA JOHN MD Unavailable [phone] PROBLEMS Condition Status Date Provider Notes Family history of CAD active Carlos Eduardo Roman MD Tobacco use quit active Carlos Eduardo Roman MD Diabetes mellitus active Carlos Eduardo Roman MD Dyslipidemia active Carlos Eduardo Roman MD Hypertension active Carlos Eduardo Roman MD CHEST PAIN active Carlos Eduardo Roman MD ENCOUNTERS Date Type Provider Location Encounter Diag nosis - In-person encounter Office Visit Carlos Eduardo Roman MD [facility] CHEST PAINHypertensionDyslipidemiaDiabetes mellitusTobacco use quitFamily history of CAD VITAL SIGNS Date Observation Value Provider Body Mass Index (Ratio) 26.52 kg/m2 Raul Gutiérrez blood pressure, resting Yes Kill een blood pressure, diastolic, left arm 86 mm [Hg] Capac blood pressure, systolic, left arm 120 mm [Hg] Capac blood pressure, diastolic, right arm 80 m m[Hg] blood pressure, systolic, right arm 120 m m[Hg] blood pressure, diastolic 86 mm[Hg] Baljinder Corona blood pressure, systolic 120 mm[Hg] Christi Corona oxygen saturation, oximetry 98 % Berta Corona respiratory rate E&M 16 /min Berta Corona pulse rate 82 /min Berta Corona weight E&M 145 [lb_av] Berta Corona height E&M 62 [in_i] Berta Corona ALLERGIES Allergy Name Onset Date Reaction Criticality Status SULFA difficulty breat que R elana S welling High Criticality active PENICILLIN difficulty breat que R elana S welling High Criticality active HISTORY OF MEDICATION USE Medication Status Instructions Dates Provider Indications Com ments CALCIUM + D TABLET active take 1 tab daily 0 Berta Corona GLUCOSAMINE CAPSULE active take 1 caps daily 0 Berta Corona LISINOPRIL 5 MG ORAL TABLET active take 1 tab once daily 7 Berta Shoream #90, 90 days supply, Filled 02/19/2018 ATENOLOL 25 MG ORAL TABLET active take 1/2 tab daily 7 Berta Shoream #90, 90 days supply, Filled 04/05/2018 PHARMACIST CHOICE LANCETS active 7 Berta Shoream #100, 90 days supply, Filled 05/25/2018 SIMPLE DIAGNOSTICS LANCING DEV active 7 Berta Shoream #1, 90 days supply, Filled 05/25/2018 ACCU-CHEK GUIDE IN VITRO STRIP active 7 Berta Shoream #100, 90 days supply, Filled 05/25/2018 ACCU-CHEK GUIDE CONTROL IN VITRO LIQUID active 7 Berta Shoream #1, 90 days supply, Filled 05/25/2018 ACCU-CHEK GUIDE W/DEVICE KIT active 7 Berta Shoream #1, 90 days supply, Filled 05/25/2018 METFORMIN HCL 500 MG ORAL TABLET active take 1 tab 2x daily 7 Berta Shoream #180, 90 days supply, Filled 06/26/2018 PANTOPRAZOLE SODIUM 40 MG ORAL TABLET DELAYED RELEASE active take 1 tab daily 0 Berta Corona #90, 90 days supply, Filled 07/25/2018 ROSUVASTATIN CALCIUM 40 MG ORAL TABLET active take 1 tab once daily 0 Berta Corona #90, 90 days supply, Filled 07/30/2018 SOCIAL HISTORY Date Observation Value Provider social history reviewed E&M katie alcaraz - no changes required Carlos Eduardo Roman MD social history E&M Smoking Histo ry: Shashi duckworth is a former smoker. Carlos Eduardo Roman MD smoking history, total pack/day 1 Berta Corona number of years as a smoker 20 a Berta Corona smoking, year quit 2006 Berta boss cigarette use yes Berta Corona smoking status Former smoker Berta Shore am FAMILY HISTORY Family Member Condition Full Sister Family History of Co ngestive Heart Failure: Full Sister Family History of Co ronary Artery Disease: Full Brother Family History of Pr ostate Cancer: Full Brother Family History of Co ngestive Heart Failure: Full Brother Family History of Co ronary Artery Disease: Full Brother Family History of Hy pertension: Full Brother Family History of Hy perlipidemia: Full Brother Family History of Ao rtic Aneurysm: Mother Family History of Co ngestive Heart Failure: Mother Family History of Co ronary Artery Disease: Mother Family History of Hy perlipidemia: INSURANCE PROVIDERS Payer name Policy type / Coverage type [place] [employer] party ID [employer] MEDICARE COMPLETE HMO Other [id number] TREATMENT PLAN Date Name Performer Cardiology:Multiple siblings wit h significant CAD. Carlos Eduardo Roman MD Cardiology:20 pack-year history. Quit in 2006. Carlos Eduardo Roman MD Cardiology:BP today: 120/86 Her updated medication list for this problem includes: Lisinopril 5 Mg Oral Tablet (Lisinopril) ..... Take 1 tab once daily Atenolol 25 Mg Oral Tablet (Atenolol) ..... Take 1/2 tab daily Carlos Eduardo Roman MD Cardiology:Per arsenio hardy, normal pharmacological stress myoview at [facility]. Will request her records. Will schedule an echo and CT coronary calcium score. We discussed cardiac cath depending on the results of her testing. Carlos Eduardo Roman MD Cardiology:Her [facility] ed medication list for this problem includes: Rosuvastatin Calcium 40 Mg Oral Tablet (Rosuvastatin calcium) ..... Take 1 tab once daily Carlos Eduardo Roman MD Cardiology:Well cont rolled per patient. Her updated medication list for this problem includes: Lisinopril 5 Mg Oral Tablet (Lisinopril) ..... Take 1 tab once daily Metformin Hcl 500 Mg Oral Tablet (Metformin hcl) ..... Take 1 tab 2x daily Carlos Eduardo Roman MD Date Name Complete Echo CT, Coronary Calcium Score HISTORY OF PROCEDURES Procedure Date Procedure Name Provider Procedure Notes S tatus CT- Coronary CA score Carlos Eduardo Roman MD completed EKG Carlos Eduardo Roman MD completed
--- OUTSIDE RECORDS SUMMARY | 2024-06-12 07:26 | XMS_ITS | Encounter Summary ---
Author Organization [facility] Address [address] [place] [address]. [place] [id number] [place] [address] Care Team Providers Care Supervisor Cold Rolling Name Role Phone Unavailable Primary Care Provider Unavailabl e Encounter Details Date Type Department Care Team (Late st Contact Info) Description 05/12/2015 Abstract [facility] Conversion Md, Generic Conversion, Social History Tobacco Use Types Packs/Day Years Used Date Smoking Tobacco: Never Assessed Comments Unknown Sex and Gender Information Value Date Recorded Sex Assigned at Not on file Legal Sex Female 8:18 PM CDT Gender Identity Not on file Sexual Orientation Not on file documented as of this encounter Plan of Treatment Not on file documented as of this encounter Visit Diagnoses Not on filedocumented in this encounter
--- OUTSIDE RECORDS SUMMARY | 2024-06-12 07:26 | XMS_ITS | Encounter Summary ---
Author Organization [facility] Address [address] [place] [address]. [place] [phone] [place] [address] Care Team Providers Care Processing Assistant Name Role Phone Unavailable Primary Care Provider Unavailabl e Encounter Details Date Type Department Care Team (Late st Contact Info) Description 07/16/2015 Abstract [facility] Conversion Md, Generic Conversion, Social History [...]
--- OUTSIDE RECORDS SUMMARY | 2024-06-12 07:26 | XMS_ITS | Encounter Summary ---
Author Organization [facility] Address [address] [place] [address]. [place] [id number] [place] [address] Care Team Providers Care Education Assistant Name Role Phone Unavailable Primary Care Provider Unavailabl e Encounter Details Date Type Department Care Team (Late st Contact Info) Description 09/15/2016 Abstract [facility] Conversion Md, Generic Conversion, Social History [...]
--- OUTSIDE RECORDS SUMMARY | 2024-06-12 07:26 | XMS_ITS | Encounter Summary ---
Author Organization [facility] Address [address] [place] [address]. [place] [phone] [place] [address] Care Team Providers Care Stacker Attendant Name Role Phone Unavailable Primary Care Provider Unavailabl e Encounter Details Date Type Department Care Team (Late st Contact Info) Description 02/04/2016 Abstract [facility] Conversion Md, Generic Conversion, Social History [...]
--- OUTSIDE RECORDS SUMMARY | 2024-06-12 07:26 | XMS_ITS | Encounter Summary ---
Author Organization [facility] Address [address] [place] [address]. [place], [place] [phone] [place] [address] Care Team Providers Care Cook Helper Meat Name Role Phone Unavailable Primary Care Provider Unavailabl e Encounter Details Date Type Department Care Team (Late st Contact Info) Description 05/03/2018 Abstract [facility] Conversion Rodrigo Olmstead MD Social History Tobacco Use Types Packs/Day Years Used Date Smoking Tobacco: Never Assessed Comments Unknown Sex and Gender Information Value Date Recorded Sex Assigned at Not on file Legal Sex Female 8:18 PM CDT Gender Identity Not on file Sexual Orientation Not on file documented as of this encounter Plan of Treatment Not on file documented as of this encounter Procedures Procedure Name Priority Date/Time Associated Diagnosis Comments LIPID PANEL Routine 08/10/2007 9:19 AM CDT documented in this encounter Results * (ABNORMAL) LIPID PANEL (08/10/2007 9:19 AM CDT) CHOLESTEROL 272(H) (0-200) MG/DL [facility] TO EPIC CONVERSION TRIGLYCERIDES 158(H) (0-150) MG/DL [facility] TO EPIC CONVERSION HDL 62 (>40) MG/DL [facility] TO [facility] CONVERSION LDL (CALCULATED) 178(H) (<130) MG/DL [facility] TO EPIC CONVERSION Comment: AN LDL OF <100 IS OPTIMAL, ELEVATED IS DEFINED >130BY CURRENT GUIDELINES, LDL GOALS ARE DEPENDENT UPON OTHER RISK FACTORS 08/10/2007 9:19 AM CDT 08/10/2007 9:19 AM CDT Narrative [facility] TO EPIC CONVERSION - 08/10/2007 9:19 AM CDT [AUTO]: This test was reviewed. us Rodrigo Olmstead MD LABORATORY Final Result [facility] CONVERSION documented in this encounter Visit Diagnoses Not on filedocumented in this encounter
--- OUTSIDE RECORDS SUMMARY | 2024-06-12 07:26 | XMS_ITS | Encounter Summary ---
Author Organization [facility] Address [address] [place] [address]. [place] [phone] [place] [address] Care Team Providers Care Social Secretary Name Role Phone Unavailable Primary Care Provider Unavailabl e Encounter Details Date Type Department Care Team (Late st Contact Info) Description 05/12/2016 Abstract [facility] Conversion Md, Generic Conversion, Social [...]
--- OUTSIDE RECORDS SUMMARY | 2024-06-12 07:26 | XMS_ITS | Encounter Summary ---
Author Organization [facility] Address [address] [place] [address]. [place] [phone] [place] [id number] Care Team Providers Care Economic Analysis Director Name Role Phone Unavailable Primary Care Provider Unavailabl e Encounter Details Date Type Department Care Team (Late st Contact Info) Description 09/22/2015 Abstract [facility] Conversion Md, Generic Conversion, Social [...]
--- OUTSIDE RECORDS SUMMARY | 2024-06-12 07:26 | XMS_ITS | Encounter Summary ---
Author Organization [facility] Address [address] [place] [address]. [place] [address] [place] [address] Care Team Providers Care Desktop Manager Name Role Phone Unavailable Primary Care Provider Unavailabl e Encounter Details Date Type Department Care Team (Late st Contact Info) Description 2018 Abstract [facility] Conversion Michael Mercado MD [address] [phone] Social History Tobacco Use Types Packs/Day Years [...] Procedure Name Priority Date/Time Associated Diagnosis Comments COMPREHENSIVE METABOLIC PANEL Routine 09/01/2005 12:00 AM CDT LIPID PANEL Routine 09/01/2005 12:00 AM CDT documented in this encounter Results * COMPREHENSIVE METABOLIC PANEL (09/01/2005 12:00 AM CDT) GLUCOSE 92 (75-105) MG/DL [facility] TO EPIC CONVERSION BUN 15 (7-17) MG/DL [facility] TO EPIC CONVERSION CREATININE S/P/B 0.8 (0.7-1.2) MG/DL [facility] TO EPIC CONVERSION SODIUM S/P/B 140 (137-145) MMOL/L [facility] TO EPIC CONVERSION POTASSIUM S/P/B 4.2 (3.6-5.0) MMOL/L [facility] TO EPIC CONVERSION CHLORIDE S/P/B 106 (98-107) MMOL/L [facility] TO EPIC CONVERSION TCO2 26.0 (22-31) MMOL/L [facility] TO EPIC CONVERSION CALCIUM S/P/B 9.6 (8.4-10.2) MG/DL [facility] TO EPIC CONVERSION BILIRUBIN TOTAL S/P/B 0.3 (0.2-1.3) MG/DL [facility] TO EPIC CONVERSION TOTAL PROTEIN S/P/B 7.1 (6.3-8.2) G/DL [facility] TO EPIC CONVERSION ALBUMIN S/P/B 4.1 (3.5-5.0) G/DL [facility] TO EPIC CONVERSION AST 30 (14-36) UNITS/L [facility] TO EPIC CONVERSION ALT 32 (9-52) UNITS/L [facility] TO EPIC CONVERSION ALKALINE PHOSPHATASE S/P/B 81 (38-126) UNITS/L [facility] TO EPIC CONVERSION ANION GAP 8.0 (0-24) MMOL/L [facility] TO EPIC CONVERSION BUN CREATININE RATIO 18.8 (6-26) [facility] TO EPIC CONVERSION OSMOLALITY (CALC) 271 (261-280) MOSM/KG [facility] TO EPIC CONVERSION A/G RATIO 1.4 (1.1-1.9) RATIO [facility] TO EPIC CONVERSION 09/01/2005 09/01/2005 Michael Mercado MD LABORATORY Final Res ult [facility] TO EPIC CONVERSION * (ABNORMAL) LIPID PANEL (09/01/2005 12:00 AM CDT) Pathologist [facility] CHOLESTEROL 235(H) (0-200) MG/DL [facility] TO EPIC CONVERSION TRIGLYCERIDES 120 (<150) MG/DL [facility] TO EPIC CONVERSION HDL 59 (>40) MG/DL [facility] TO EPIC CONVERSION LDL (CALCULATED) 152(H) (<130) MG/DL [facility] TO EPIC CONVERSION Comment: LDL CHOLESTEROL IS THE PRIMARY TARGET OF THERAPY. AN LDL OF <100 IS OPTIMAL; HOWEVER, ELEVATED IS DEFINED >130. BY ATP III GUIDELINES, LDL GOALS ARE DEPENDENT UPON THE PATIENT'S OTHER RISK FACTORS. 09/01/2005 09/01/2005 [facility] Estevan Mercado MD LABORATORY Final Res ult [facility] TO EPIC CONVERSION documented in this encounter Visit Diagnoses Not on filedocumented in this encounter
--- OUTSIDE RECORDS SUMMARY | 2024-06-12 07:26 | XMS_ITS | Encounter Summary ---
Author Organization [facility] Address [address] [place] [address]. [place] [phone] [place] [address] Care Team Providers Care Obstetrics Technician Name Role Phone Unavailable Primary Care Provider Unavailabl e Encounter Details Date Type Department Care Team (Late st Contact Info) Description 04/13/2017 Abstract [facility] Conversion Md, Generic Conversion, Social [...]
--- OUTSIDE RECORDS SUMMARY | 2024-06-12 07:27 | XMS_ITS | Encounter Summary ---
Author Organization [facility] Address [address] [place] [address]. [place] [phone] [place] [address] Care Team Providers Care Retail Banking Manager Name Role Phone Unavailable Primary Care Provider Unavailabl e Encounter Details Date Type Department Care Team (Late st Contact Info) Description 04/16/2015 Abstract [facility] Conversion Md, Generic Conversion, Social [...]
--- OUTSIDE RECORDS SUMMARY | 2024-06-12 07:28 | XMS_ITS | Encounter Summary ---
Author Organization [facility] Address [address] [place] [address]. [place] [phone] [place] [address] Care Team Providers Care Transportation Solutions Manager Name Role Phone Unavailable Primary Care Provider Unavailabl e Encounter Details Date Type Department Care Team (Late st Contact Info) Description 01/01/2014 Abstract [facility] Conversion Md, Generic Conversion, Social [...]
--- OUTSIDE RECORDS SUMMARY | 2024-06-12 07:28 | XMS_ITS | Encounter Summary ---
Author Organization [facility] Address [address] [place] [address]. [place] [address] [place] [address] Care Team Providers Care Quality Assurance/R&D Lab Technician Name Role Phone Unavailable Primary Care Provider Unavailabl e Encounter Details Date Type Department Care Team (Late st Contact Info) Description 11/16/2013 Abstract [facility] Conversion Sam Guerrero MD [id number] [place] [address] Social History Tobacco Use Types Packs/Day Years Used Date Smoking Tobacco: Never Assessed Comments Unknown Sex and Gender Information Value Date Recorded Sex Assigned at Not on file Legal Sex Female 8:18 PM CDT Gender Identity Not on file Sexual Orientation Not on file documented as of this encounter Progress Notes * Sam Guerrero MD - 11/16/2013 12:00 AM CDT Patient Name: Isela Kendall : 1950 .0 Date: 11/16/2013 Spoke with pt regarding HIDA scan results from 11/15/13. Per Dr Guerrero, HIDA scan normal- should proceed with referral to GI Dr Thao, copy of results faxed to Dr Kan office. Pt voiced understanding. Entered by: Jane Hickman RN COMBER documented in this encounter Plan of Treatment Not on file documented as of this encounter Visit Diagnoses Not on filedocumented in this encounter
--- OUTSIDE RECORDS SUMMARY | 2024-06-12 07:28 | XMS_ITS | Encounter Summary ---
Author Organization [facility] Address [address] [place] [address]. [place], [place] [phone] [place] [address] Care Team Providers Care Tank Systems Maintainer Name Role Phone Unavailable Primary Care Provider Unavailabl e Encounter Details Date Type Department Care Team (Late st Contact Info) Description 11/15/2013 Abstract [facility] [address] [place] [address] Sam Guerrero MD [id number] [place] [address] Social History Tobacco Use Types Packs/Day Years Used Date Smoking Tobacco: Never Assessed Comments Unknown Sex and Gender Information Value Date Recorded Sex Assigned at Not on file Legal Sex Female 8:18 PM CDT Gender Identity Not on file Sexual Orientation Not on file documented as of this encounter Plan of Treatment Not on file documented as of this encounter Visit Diagnoses Diagnosis Abdominal pain, right upper quadrant documented in this encounter
--- OUTSIDE RECORDS SUMMARY | 2024-06-12 07:28 | XMS_ITS | Encounter Summary ---
Author Organization [facility] Address [address] [place] [address]. [place], [place] [phone] [place] [address] Care Team Providers Care Resident Service Coordinator Name Role Phone Unavailable Primary Care Provider Unavailabl e Encounter Details Date Type Department Care Team (Late st Contact Info) Description 03/25/2014 Abstract [facility] Conversion Md, Generic Conversion, Social History Tobacco Use Types Packs/Day Years Used Date Smoking Tobacco: Never Assessed Comments Unknown Sex and Gender Information Value Date Recorded Sex Assigned at Not on file Legal Sex Female 8:18 PM CDT Gender Identity Not on file Sexual Orientation Not on file documented as of this encounter Last Filed Vital Signs Vital Sign Reading [...] Mass Index 26.28 03/25/2014 1:09 PM CDT documented in this encounter Progress Notes * Sam Guerrero MD - 03/25/2014 12:00 AM CDT ACTIVE PROBLEMS ? Depression ? Hyperlipidemia, Other or Unspecified ? Hypertension, Unspecified ? Irritable Bowel Syndrome ? Osteoarthritis ? Peptic Ulcer Duodenal CHIEF COMPLAINT The Chief Complaint is: Follow up check. HISTORY OF PRESENT ILLNESS Isela Kendall is a 63 year old female. She spoke w her GI dr who said no further testing is needed since she's asx; she is now on daily ppi and gi sx are controlled she's tried tylenol, tramadol, glucosamine etc and those havent controlled her arthtiris, has it inmany joints, wrists worse of late; has had extensive lei including rheum labs and it's all turned upok meloxicam helped in past but had to stop when she had pud. CURRENT MEDICATION ? Calcium 500/Vitamin D 500-125 MG-UNIT TABS, Once a day, 30 days, 11 refills ? Estrace 1 MG TABS, Once a day, 30 days, 11 refills ? Lisinopril 10 MG TABS, Once a day, 90 days, 3 refills ? PriLOSEC 40 MG CPDR, Once a day, 30 days, 11 refills ? Propranolol HCl 40 MG TABS, Take as directed, 90 days, 3 refills, 1/2 tab twice a day ? PROzac 40 MG CAPS, Once a day, 90 days, 3 refills ? Simvastatin 40 MG TABS, Once a day, 90 days, 3 refills ? TraMADol HCl 50 MG TABS, TID PRN, 30 days, 5 refills ? Vitamin E 400 UNIT CAPS, Once a day, 365 days, 0 refills PAST MEDICAL/SURGICAL HISTORY Reported: No recent change in medical history -----Reviewed 03-12. Surgical / Procedural: Surgical / procedural history -----Reviewed 03-12 T&A RSO Hysterectomy, LSO & Incidental Appendectomy Colonoscopy --seeing hitesh Matos. Diagnoses: Hypertension ess tremor and palps better on bblk. Irritable bowel syndrome. Hyperlipidemia PUD--duodenal on egd by lori gomez 2013; was taken off mobic and put on ppi djd lab lei negative, tried several meds and modalities that didnt help like mobic did. Tuberculosis tests +ve Wellness w vegetable tester cierrarich. Surgical: ? Hysterectomy age 30 ? Total hysterectomy SOCIAL HISTORY Behavioral: Smoking status: Former smoker. ALLERGIES ? Penicillins Reaction: ., . ? Sulfa Drugs Reaction: Skin Rashes/Hives PHYSICAL FINDINGS ? Vitals taken 03/25/2014 01:09 pm BP-Sitting L 110/70 mmHg BP Cuff Size Regular Pulse Rate-Sitting 85 bpm Respiration Rate 20 per min Temp-Oral 97 F Height 62.5 in Weight 146 lbs Body Mass Index 26.3 kg/m2 Body Surface Area 1.68 m2 Oxygen Saturation 96 % General Appearance: ?? Well developed. ?? Well nourished. ?? In no acute distress. Neck: Suppleness: ?? Neck demonstrated no decrease in suppleness. Trachea: ?? Midline. Eyes: General/bilateral: Extraocular Movements: ?? Normal EOM. ?? Normal EOM. Sclera: ?? Showed no icterus. Ears: General/bilateral: External Auditory Canal: ?? External auditory meatus normal. Nose: General/bilateral: Discharge: ?? No nasal discharge seen. Cavity: ?? Nasal turbinate not swollen. Pharynx: Oropharynx: ?? Normal. Lymph Nodes: ?? Normal. Lungs: ?? No wheezing was heard. ?? No rhonchi were heard. ?? No rales/crackles were heard. Cardiovascular: Jugular Venous Distention: ?? JVD not increased. Heart Rate And Rhythm: ?? Normal. Heart Sounds: ?? Normal. Murmurs: ?? No murmurs were heard. Apical Impulse: ?? Normal. Thrill: ?? No thrill. Arterial Pulses: ?? Equal bilaterally and normal. Back: ?? Normal. Abdomen: Auscultation: ?? Bowel sounds were normal. Palpation: ?? No abdominal guarding. ?? Abdominal non-tender. Liver: ?? Not enlarged. Spleen: ?? Not enlarged. Musculoskeletal System: General/bilateral: ?? Overall findings were normal. Neurological: Balance: ?? Normal. Gait And Stance: ?? Normal. ASSESSMENT ? Osteoarthritis Hx of PUD. THERAPY ? Continue current medication. ? Clinical summary provided to patient. PLAN ? OTHER PriLOSEC 40 MG CPDR, Once a day, 90 days, 3 refills ? Return to the clinic if condition worsens or new symptoms arise Since she's now on a daily ppi will carefully resume meloxicam (has plenty at home so will restart)and cont the daily ppi, if she gets any dyspepsia, nausea, epig pain she's to stop it and let me know; would then need to probably inc ppi and start carrfate and then maybe try something else like arthrotec or diclofenac; pt aware of risks but since she's miserable w her djd and we've tried everything else will go this route. Sam Guerrero MD Electronically signed by: Kevin Guerrero MD Date: 03/25/2014 13:31 PATIONAL HYGIENIST documented in this encounter Plan of Treatment Not on file documented as of this encounter Visit Diagnoses Not on filedocumented in this encounter
--- OUTSIDE RECORDS SUMMARY | 2024-06-12 07:28 | XMS_ITS | Encounter Summary ---
Author Organization [facility] Address [address] [place] [address]. [place] [phone] [place] [address] Care Team Providers Care Dinkey Engine Operator Name Role Phone Unavailable Primary Care Provider Unavailabl e Encounter Details Date Type Department Care Team (Late st Contact Info) Description 01/22/2014 Abstract [facility] Conversion Md, Generic Conversion, Social [...]
--- OUTSIDE RECORDS SUMMARY | 2024-06-12 07:28 | XMS_ITS | Encounter Summary ---
Author Organization [facility] Address [address] [place] [address]. [place], [place] [phone] [place] [address] Care Team Providers Care Automatic Casting Machine Operator Name Role Phone Unavailable Primary Care Provider Unavailabl e Encounter Details Date Type Department Care Team (Late st Contact Info) Description 01/22/2014 Abstract [facility] Conversion Md, Generic Conversion, Social [...] Sign Reading Time Taken Comments Blood Pressure 124/78 01/22/2014 9:46 AM CDT Pulse 79 01/22/2014 9:46 AM CDT Temperature - - Respiratory Rate - - Oxygen Saturation - - Inhaled Oxygen Concentration - - Weight 65 kg (143 lb 6 oz) 01/22/2014 9:46 AM CD T Height 160 cm (5' 3 ) 01/22/2014 9:46 AM CDT Body Mass Index 25.4 01/22/2014 9:46 AM CDT documented in this encounter Progress Notes * Sam Guerrero MD - 01/22/2014 12:00 AM CDT ACTIVE PROBLEMS ? Depression ? Hyperlipidemia, Other or Unspecified ? Hypertension, Unspecified ? Irritable Bowel Syndrome ? Peptic Ulcer Duodenal CHIEF COMPLAINT The Chief Complaint is: C/o joint pain. HISTORY OF PRESENT ILLNESS Isela Kendall is a 63 year old female. Has joint pains jack in hands, feet and neck, had similar c/o in 2011 and we did extensive lei incl xrays, hugo, esr, etc and all was ok, dx was djd and we started mobic which helped a lot but then was having gi issues and saw dr proctor at [facility] who did egd and found duodenal ulcer, he stopped themobic, told her to take tylenol and put her on prilosec, gi issues already better but jt pains are back, no swelling or systemic sx; been on prozac for several yrs. CURRENT MEDICATION ? Calcium 500/Vitamin D 500-125 [...] a day, 90 days, 3 refills ? Vitamin E 400 UNIT CAPS, Once a day, 365 days, 0 refills PAST MEDICAL/SURGICAL HISTORY Reported: No recent change in medical history -----Reviewed 01-10. Surgical / Procedural: Surgical / procedural history -----Reviewed 01-10 T&A RSO Hysterectomy, LSO & Incidental Appendectomy Colonoscopy (next 2013) Shawna. Diagnoses: Hypertension ess tremor and palps better on bblk. Irritable bowel syndrome. Hyperlipidemia PUD--duodenal on egd hitesh [place] 2013. Tuberculosis tests +ve Wellness w skinner pelts gingrich. Surgical: ? Hysterectomy SOCIAL HISTORY Behavioral: Smoking status: Never smoker. ALLERGIES ? Penicillins Reaction: ., . ? Sulfa Drugs Reaction: Skin Rashes/Hives PHYSICAL FINDINGS ? Vitals taken 01/22/2014 09:46 am BP-Sitting R 124/78 mmHg BP Cuff Size Regular Pulse Rate-Sitting 79 bpm Respiration Rate 20 per min Temp-Oral 97.7 F Height 63 in Weight 143 lbs 6.4 oz Body Mass Index 25.4 kg/m2 Body Surface Area 1.68 m2 Oxygen Saturation 97 % General Appearance: ?? Well developed. ?? Well nourished. ?? In no acute distress. Neck: Suppleness: ?? Neck demonstrated no decrease in suppleness. Trachea: ?? Midline. Thyroid: ?? Showed no abnormalities. Eyes: General/bilateral: Extraocular Movements: ?? Normal EOM. ?? Normal EOM. Sclera: ?? Showed no icterus. Ears: General/bilateral: External Auditory Canal: ?? External auditory meatus normal. Tympanic Membrane: ?? Normal. Nose: General/bilateral: Discharge: ?? No nasal discharge seen. Cavity: ?? Nasal turbinate not swollen. Sinus Tenderness: ?? No sinus tenderness. Pharynx: Oropharynx: ?? Normal. Lymph Nodes: ?? [...] And Stance: ?? Normal. ASSESSMENT ? Osteoarthritis THERAPY ? Continue current medication. PLAN ? OTHER Cymbalta 60 MG CPEP, Once a day, 30 days, 2 refills, INSTEAD OF PROZAC ? Return to the clinic if condition worsens or new symptoms arise Rheum lei already done and neg in 2012 see those notes and labs/images offered optoins incl adding tramadol prn vs changing prozac to cymbalta which might help more w thepolyarthritis; will try the latter and fu in late oct after repeat egd to decide what next best course of action is (eg cont cymbalta vs try nsaid plus ppi cautiously); at that time will be due for yearly check anyway since prozac and cymbalta are similar i told her to simply switch out but can cross taper if she gets any se in the next few days. HEALTH REMINDERS ? Assess Tobacco Use satisfied 01/22/2014. ? Blood Pressure Measurement satisfied 01/22/2014. Sam Guerrero MD Electronically signed by: Kevin Guerrero MD Date: 01/22/2014 10:19 INE FARMWORKER documented in this encounter Plan of Treatment Not on file documented as of this encounter Visit Diagnoses Not on filedocumented in this encounter
--- OUTSIDE RECORDS SUMMARY | 2024-06-12 07:28 | XMS_ITS | Encounter Summary ---
Author Organization [facility] Address [address] [place] [address]. [place], [place] [phone] [place] [address] Care Team Providers Care Access Registrar Name Role Phone Unavailable Primary Care Provider Unavailabl e Encounter Details Date Type Department Care Team (Late st Contact Info) Description 02/26/2014 Abstract [facility] Conversion Md, Generic Conversion, Social [...] Sign Reading Time Taken Comments Blood Pressure 120/78 02/26/2014 10:47 AM CDT Pulse 85 02/26/2014 10:47 AM CDT Temperature - - Respiratory Rate - - Oxygen Saturation - - Inhaled Oxygen Concentration - - Weight 64.4 kg (142 lb) 02/26/2014 10:47 AM CDT Height 160 cm (5' 3 ) 02/26/2014 10:47 AM CDT Body Mass Index 25.15 02/26/2014 10:47 AM CDT documented in this encounter Progress Notes * Sam Guerrero MD - 02/26/2014 12:00 AM CDT ACTIVE PROBLEMS ? Depression ? Hyperlipidemia, Other or Unspecified ? Hypertension, Unspecified ? Irritable Bowel Syndrome ? Osteoarthritis ? Peptic Ulcer Duodenal CHIEF COMPLAINT The Chief Complaint is: F/u with joint pain. HISTORY OF PRESENT ILLNESS Isela Kendall is a 63 year old female. Cymbalta didnt work she she went back on prozac would like to taper off that though still has alot of joint pain jack in fingers hugo, rf, esr, ccp all negative cant take nsaids due to pud, hasnt contacted hitesh gi yet for repeat egd. CURRENT MEDICATION ? Calcium 500/Vitamin D 500-125 MG-UNIT TABS, Once a day, 30 days, 11 refills ? Cymbalta 60 MG CPEP, Once a day, 30 days, 2 refills, INSTEAD OF PROZAC ? Estrace 1 MG TABS, Once a day, 30 days, 11 refills ? Lisinopril 10 MG TABS, Once a day, 90 days, 3 refills ? PriLOSEC 40 MG CPDR, Once a day, 30 days, 11 refills ? Propranolol HCl 40 MG TABS, Take as directed, 90 days, 3 refills, 1/2 tab twice a day ? PROzac 40 MG CAPS, Once a day, 30 days, 0 refills ? PROzac 40 MG CAPS, Once a day, 90 days, 3 refills ? Simvastatin 40 MG TABS, Once a day, 90 days, 3 refills ? Vitamin E 400 UNIT CAPS, Once a day, 365 days, 0 refills PAST MEDICAL/SURGICAL HISTORY Reported: No recent change in medical history -----Reviewed 02-10. Surgical / Procedural: Surgical / procedural history -----Reviewed 02-10 T&A RSO Hysterectomy, LSO & Incidental Appendectomy Colonoscopy --seeing hitesh Matos. Diagnoses: Hypertension ess tremor and palps better on bblk. Irritable bowel syndrome. Hyperlipidemia PUD--duodenal on egd hitesh [place] 2013. Tuberculosis tests +ve Wellness w pellet machine operator gingrich. Surgical: ? Hysterectomy age 30 ? Total hysterectomy SOCIAL HISTORY Behavioral: Smoking status: Never smoker. ALLERGIES ? Penicillins Reaction: ., . ? Sulfa Drugs Reaction: Skin Rashes/Hives PHYSICAL FINDINGS ? Vitals taken 02/26/2014 10:47 am BP-Sitting 120/78 mmHg BP Cuff Size Regular Pulse Rate-Sitting 85 bpm Respiration Rate 18 per min Temp-Oral 97.5 F Height 63 in Weight 142 lbs Body Mass Index 25.2 kg/m2 Body Surface Area 1.67 m2 Oxygen Saturation 98 % General Appearance: ?? Well developed. ?? [...] ?? Not enlarged. Spleen: ?? Not enlarged. Some heberden nodules to finger jts. ASSESSMENT ? Osteoarthritis THERAPY ? Continue current medication. ? Clinical summary provided to patient. VACCINATIONS ? Influenza Dose #2 Status: Administered Date: 02/26/2014 PLAN ? OTHER TraMADol HCl 50 MG TABS, TID PRN, 30 days, 5 refills ? Return to the clinic if condition worsens or new symptoms arise Dw pt that w negative lab lei we've had it's unlikely sx are due to anything other than djd/oa have to avoid nsaids at least til repeat egd is done tylenol up to 4gm/d can add glucosamine up to tid add tramadol as well, watch for sedation and constipation she'll contact fattis to set up repaet egd then might be able to consider zhou or nsaid w gastroprotection if clear. HEALTH REMINDERS ? Flu Shot satisfied 02/26/2014. ? Obesity Screening and Counseling satisfied 02/26/2014. bmi noted Sma Guerrero MD Electronically signed by: Kevin Guerrero MD Date: 02/26/2014 20:40 RVISOR SAMPLE documented in this encounter Plan of Treatment Not on file documented as of this encounter Visit Diagnoses Not on filedocumented in this encounter
--- OUTSIDE RECORDS SUMMARY | 2024-06-12 07:28 | XMS_ITS | Encounter Summary ---
Author Organization [facility] Address [address] [place] [address]. [place] [phone] [place] [address] Care Team Providers Care Web Coordinator Name Role Phone Unavailable Primary Care Provider Unavailabl e Encounter Details Date Type Department Care Team (Late st Contact Info) Description 11/15/2013 Abstract [facility] Conversion Md, Generic Conversion, [...]
--- OUTSIDE RECORDS SUMMARY | 2024-06-12 07:28 | XMS_ITS | Encounter Summary ---
Author Organization [facility] Address [address] [place] [address]. [place] [phone] [place] [address] Care Team Providers Care Laborer Mine Name Role Phone Unavailable Primary Care Provider Unavailabl e Encounter Details Date Type Department Care Team (Late st Contact Info) Description 03/06/2014 Abstract [facility] Conversion Md, Generic Conversion, [...]
--- OUTSIDE RECORDS SUMMARY | 2024-06-12 07:28 | XMS_ITS | Encounter Summary ---
Author Organization [facility] Address [address] [place] [address]. [place] [phone] [place] [address] Care Team Providers Care Welder Metal Fab Name Role Phone Unavailable Primary Care Provider Unavailabl e Encounter Details Date Type Department Care Team (Late st Contact Info) Description 02/26/2014 Abstract [facility] Conversion Md, Generic Conversion, Social History [...]
--- OUTSIDE RECORDS SUMMARY | 2024-06-12 07:29 | XMS_ITS | Encounter Summary ---
Author Organization [facility] Address [address] [place] [address]. [place] [address] [place] [address] Care Team Providers Care Product Marketing Engineer Name Role Phone Unavailable Primary Care Provider Unavailabl e Encounter Details Date Type Department Care Team (Late st Contact Info) Description 03/30/2012 Abstract [facility] Sam Guerrero MD [id number] [place] [address] Social History Tobacco Use Types Packs/Day Years Used Date Smoking Tobacco: Never Assessed Comments Unknown Sex and Gender Information Value Date Recorded Sex Assigned at Not on file Legal Sex Female 8:18 PM CDT Gender Identity Not on file Sexual Orientation Not on file documented as of this encounter Progress Notes * Sam Guerrero MD - 03/30/2012 12:00 AM CDT Patient Name: Isela Kendall : 1950 .0 Date: 03/30/2012 Spoke with pt. re: lab results from 03/28/12. Per Dr. Guerrero all labs were fine and no evidence of hemochromatosis. Pt. verbalized understanding. Dictated By: Rhonda Roach Electronically approved by: Rhonda Roach Date: 03/30/12 09:27 OR GEOLOGIST documented in this encounter Plan of Treatment Not on file documented as of this encounter Visit Diagnoses Not on filedocumented in this encounter
--- OUTSIDE RECORDS SUMMARY | 2024-06-12 07:29 | XMS_ITS | Encounter Summary ---
Author Organization [facility] Address [address] [place] [address]. [place] [phone] [place] [address] Care Team Providers Care Java Lead Developer Name Role Phone Unavailable Primary Care Provider Unavailabl e Encounter Details Date Type Department Care Team (Late st Contact Info) Description 06/11/2013 Abstract [facility] Conversion Md, Generic Conversion, Social [...]
--- OUTSIDE RECORDS SUMMARY | 2024-06-12 07:29 | XMS_ITS | Encounter Summary ---
Author Organization [facility] Address [address] [place] [address]. [place] [address] [place] [address] Care Team Providers Care Physical Therapy Technician Name Role Phone Unavailable Primary Care Provider Unavailabl e Encounter Details Date Type Department Care Team (Late st Contact Info) Description 11/10/2013 Abstract [facility] Sam Guerrero MD [id number] [place] [address] Social History Tobacco Use Types Packs/Day Years Used Date Smoking Tobacco: Never Assessed Comments Unknown Sex and Gender Information Value Date Recorded Sex Assigned at Not on file Legal Sex Female 8:18 PM CDT Gender Identity Not on file Sexual Orientation Not on file documented as of this encounter Progress Notes * Sam Guerrero MD - 11/10/2013 12:00 AM CDT Date: 11/10/2013 Name: Isela Valeria Enoch : 1950 Age: 63 Telephone conversation with patient regarding need for HIDA scan-per Cesar Yadav patient to have HIDAscan done before screening colonoscopy-order sent to hospital and patient will schedule. Note entered by Felipe Irizarry RN Electronically approved by: FELIPE IRIZARRY Date: 11/10/13 09:32 R SALES MANAGER documented in this encounter Plan of Treatment Not on file documented as of this encounter Visit Diagnoses Not on filedocumented in this encounter
--- OUTSIDE RECORDS SUMMARY | 2024-06-12 07:29 | XMS_ITS | Encounter Summary ---
Author Organization [facility] Address [address] [place] [address]. [place] [phone] [place] [address] Care Team Providers Care Admissions Recruiter Name Role Phone Unavailable Primary Care Provider Unavailabl e Encounter Details Date Type Department Care Team (Late st Contact Info) Description 09/05/2013 Abstract [facility] Conversion Md, Generic Conversion, Social [...]
--- OUTSIDE RECORDS SUMMARY | 2024-06-12 07:29 | XMS_ITS | Encounter Summary ---
Author Organization [facility] Address [address] [place] [address]. [place], [place] [phone] [place] [address] Care Team Providers Care Asset Protection Manager Name Role Phone Unavailable Primary Care Provider Unavailabl e Encounter Details Date Type Department Care Team (Late st Contact Info) Description 03/28/2012 Abstract [facility] [address] [place] [address] Sam Guerrero MD [id number] [place] [address] Social History Tobacco Use Types Packs/Day Years Used Date Smoking Tobacco: Never Assessed Comments Unknown Sex and Gender Information Value Date Recorded Sex Assigned at Not on file Legal Sex Female 8:18 PM CDT Gender Identity Not on file Sexual Orientation Not on file documented as of this encounter Plan of Treatment Not on file documented as of this encounter Visit Diagnoses Diagnosis Deficiency anemia Unspecified deficiency anemia documented in this encounter
--- OUTSIDE RECORDS SUMMARY | 2024-06-12 07:29 | XMS_ITS | Encounter Summary ---
Author Organization [facility] Address [address] [place] [address]. [place], [place] [phone] [place] [address] Care Team Providers Care Director Of Special Services Name Role Phone Unavailable Primary Care Provider Unavailabl e Encounter Details Date Type Department Care Team (Late st Contact Info) Description 02/06/2013 Abstract [facility] Conversion Md, Generic Conversion, [...] Sign Reading Time Taken Comments Blood Pressure 116/76 02/06/2013 1:45 PM CDT Pulse 70 02/06/2013 1:45 PM CDT Temperature - - Respiratory Rate - - Oxygen Saturation - - Inhaled Oxygen Concentration - - Weight 65.8 kg (145 lb) 02/06/2013 1:45 PM CDT Height 160 cm (5' 3 ) 02/06/2013 1:45 PM CDT Body Mass Index 25.69 02/06/2013 1:45 PM CDT documented in this encounter Progress Notes * Sam Guerrero MD - 02/06/2013 12:00 AM CDT ACTIVE PROBLEMS ? Depression ? Hyperlipidemia, Other or Unspecified ? Hypertension, Unspecified ? Irritable Bowel Syndrome CHIEF COMPLAINT The Chief Complaint is: Routine check-also persistant on and off nausea-x 2 and 1/2 months. HISTORY OF PRESENT ILLNESS Isela Kendall is a 62 year old female. Mobic has really helped her djd sx however she's had persistent nausea mainly after eating certain foods like fr fries for 2 mos or so no wt loss, only vague abd discomfort if any otw tab her meds well due for yearly labs wellness via [facility]. CURRENT MEDICATION ? Aspirin 81 MG TABS, Once a day, 365 days, 0 refills ? Estrace 1 MG TABS, Once a day, 30 days, 11 refills ? Lisinopril 10 MG TABS, Once a day, 90 days, 3 refills ? Meloxicam 15 MG TABS, Once a day, 90 days, 3 refills ? Propranolol HCl 40 MG TABS, Take as directed, 90 days, 3 refills, 1/2 tab twice a day ? PROzac 40 MG CAPS, Once a day, 90 days, 3 refills ? Simvastatin 40 MG TABS, Once a day, 90 days, 1 refills ? Vitamin E 400 UNIT CAPS, Once a day, 365 days, 0 refills PAST MEDICAL/SURGICAL HISTORY Reported: No recent change in medical history -----Reviewed 02-09. Surgical / Procedural: Surgical / procedural history -----Reviewed 02-09 T&A RSO Hysterectomy, LSO & Incidental Appendectomy Colonoscopy (next 2013) Shawna. Diagnoses: Hypertension ess tremor and palps better on bblk. Irritable bowel syndrome. Hyperlipidemia. Tuberculosis tests +ve Well[facility] photovoltaic [facility] Surgical: Hysterectomy SOCIAL HISTORY Behavioral: Smoking status: Unknown if ever smoked. ALLERGIES ? Penicillins Reaction: ., . ? Sulfa Drugs Reaction: Skin Rashes/Hives PHYSICAL FINDINGS ? Vitals taken 02/06/2013 01:45 pm BP-Sitting L 116/76 mmHg BP Cuff Size Regular Pulse Rate-Sitting 70 bpm Respiration Rate 20 per min Temp-Oral 97.5 F Height 63 in Weight 145 lbs Body Mass Index 25.7 kg/m2 Body Surface Area 1.69 m2 Oxygen Saturation 100 % General Appearance: ?? Well developed. ?? Well nourished. ?? In no acute distress. Neck: Suppleness: ?? Neck demonstrated no decrease in suppleness. Trachea: ?? Not deviated. Thyroid: ?? Showed no abnormalities. Eyes: General/bilateral: [...] ?? Bowel sounds were normal. Palpation: ?? Abdominal muscle guarding was not demonstrated. ?? No abdominal tenderness. Liver: ?? Not enlarged. Spleen: ?? Not enlarged. Musculoskeletal System: General/bilateral: ?? Overall findings were normal. Neurological: Balance: ?? Normal. Gait And Stance: ?? Normal. ASSESSMENT ? Benign essential hypertension ? Hyperlipidemia Nausea, worse after meals, suspicious for gallbladder disease, could also consider gastritis/early PUD given recent introduction of mobic. THERAPY ? Continue current medication. ? Clinical summary provided to patient. COUNSELING/EDUCATION ? Discussed concerns about exercise ? Patient education about a proper diet PLAN ? HYPERLIPIDEMIA Lab: Comp metabolic panel Lab: Lipid profile Simvastatin 40 MG TABS, Once a day, 90 days, 3 refills ? Abdominal Pain, Other Specified Site Lab: x Ultrasound, Abdomen ? OTHER Lisinopril 10 MG TABS, Once a day, 90 days, 3 refills Meloxicam 15 MG TABS, Once a day, 90 days, 3 refills Propranolol HCl 40 MG TABS, Take as directed, 90 days, 3 refills, 1/2 tab twice a day PROzac 40 MG CAPS, Once a day, 90 days, 3 refills ? Return to the clinic if condition worsens or new symptoms arise Update labs check ruq us, if no stones then hida scan if hida and us negative then will refer for EGD and cscope (due for cscope here soon), may want to see gi in [place]--she'll let me know. HEALTH REMINDERS ? Assess Blood Pressure satisfied 02/06/2013. ? Assess BMI satisfied 02/06/2013. ? Assess Tobacco Use satisfied 02/06/2013. ? Blood Pressure Measurement satisfied 02/06/2013. ? Cholesterol Screening satisfied 02/06/2013. ordered ? Colonoscopy--Screening satisfied 02/06/2013. will schedule dep on if egd also needed ? Colorectal Cancer Screening satisfied 02/06/2013. willl sched dep on if egd also needed ? Follow Up Plan BMI Management satisfied 02/06/2013. ? Mammogram satisfied 02/06/2013. gingvamshi ? Mammogram Screening satisfied 02/06/2013. chava ? Medication Management satisfied 02/06/2013. ? Obesity Screening and Counseling satisfied 02/06/2013. Patient is a normal weight. ? Pap Smear Screening satisfied 02/06/2013. chava Guerrero MD Electronically signed by: Kevin Guerrero MD Date: 02/06/2013 13:47 STILL RUNNER COMPOUNDER documented in this encounter Plan of Treatment Not on file documented as of this encounter Visit Diagnoses Not on filedocumented in this encounter
--- OUTSIDE RECORDS SUMMARY | 2024-06-12 07:29 | XMS_ITS | Encounter Summary ---
Author Organization [facility] Address [address] [place] [address]. [place] [address] [place] [address] Care Team Providers Care Typesetter Perforator Operator Name Role Phone Unavailable Primary Care Provider Unavailabl e Encounter Details Date Type Department Care Team (Late st Contact Info) Description 02/13/2013 Abstract [facility] Yisel Herman PA-C [address] [place] [address] Social History Tobacco Use Types Packs/Day Years Used Date Smoking Tobacco: Never Assessed Comments Unknown Sex and Gender Information Value Date Recorded Sex Assigned at Not on file Legal Sex Female 8:18 PM CDT Gender Identity Not on file Sexual Orientation Not on file documented as of this encounter Progress Notes * Yisel Gupta PA-C - 02/13/2013 12:00 AM CDT Patient Name: Isela Kendall : 1950 .0 Date: 02/13/2013 Dictated By: Yisel Gupta PA-C Informed pt: per Dr. Guerrero her labs and RUQ US were ok. Pt is still having symptoms, so Dr. Guerrero recommends HIDA scan. So order was faxed to hospital. Pt verbalized her understanding. Electronically approved by: Yisel Gupta Date: 02/13/13 14:42 OWS MIGRATION TECHNICIAN documented in this encounter Plan of Treatment Not on file documented as of this encounter Visit Diagnoses Not on filedocumented in this encounter
--- OUTSIDE RECORDS SUMMARY | 2024-06-12 07:29 | XMS_ITS | Encounter Summary ---
Author Organization [facility] Address [address] [place] [address]. [place] [phone] [place] [address] Care Team Providers Care [place] Patrol Lieutenant Name Role Phone Unavailable Primary Care Provider Unavailabl e Encounter Details Date Type Department Care Team (Late st Contact Info) Description 03/23/2012 Abstract [facility] [place] [facility] Conversion Md, Generic Conversion, Social [...]
--- OUTSIDE RECORDS SUMMARY | 2024-06-12 07:29 | XMS_ITS | Encounter Summary ---
Author Organization [facility] Address [address] [place] [address]. [place] [phone] [place] [address] Care Team Providers Care Toxics Program Officer Name Role Phone Unavailable Primary Care Provider Unavailabl e Encounter Details Date Type Department Care Team (Late st Contact Info) Description 02/12/2013 Abstract [facility] Conversion Md, Generic Conversion, Social History [...]
--- OUTSIDE RECORDS SUMMARY | 2024-06-12 07:29 | XMS_ITS | Encounter Summary ---
Author Organization [facility] Address [address] [place] [address]. [place] [phone] [place] [address] Care Team Providers Care Director Of Capital Giving Name Role Phone Unavailable Primary Care Provider Unavailabl e Encounter Details Date Type Department Care Team (Late st Contact Info) Description 11/10/2013 Abstract [facility] Conversion Md, Generic Conversion, [...]
--- OUTSIDE RECORDS SUMMARY | 2024-06-12 07:29 | XMS_ITS | Encounter Summary ---
Author Organization [facility] Address [address] [place] [address]. [place] [phone] [place] [address] Care Team Providers Care Instructional Aide Name Role Phone Unavailable Primary Care Provider Unavailabl e Encounter Details Date Type Department Care Team (Late st Contact Info) Description 02/06/2013 Abstract [facility] Conversion Md, Generic Conversion, [...]
--- OUTSIDE RECORDS SUMMARY | 2024-06-12 07:29 | XMS_ITS | Encounter Summary ---
Author Organization [facility] Address [address] [place] [address]. [place] [phone] [place] [address] Care Team Providers Care Postal Service Mail Processor Name Role Phone Unavailable Primary Care Provider Unavailabl e Encounter Details Date Type Department Care Team (Late st Contact Info) Description 03/28/2012 Abstract [facility] Conversion Md, Generic Conversion, Social History [...]
--- OUTSIDE RECORDS SUMMARY | 2024-06-12 07:29 | XMS_ITS | Encounter Summary ---
Author Organization [facility] Address [address] [place] [address]. [place], [place] [phone] [place] [address] Care Team Providers Care Wire Mesh Filter Fabricator Name Role Phone Unavailable Primary Care Provider Unavailabl e Encounter Details Date Type Department Care Team (Late st Contact Info) Description 03/28/2012 Abstract [facility] Conversion Md, Generic Conversion, Social [...] Sign Reading Time Taken Comments Blood Pressure 102/60 03/28/2012 1:30 PM CDT Pulse 90 03/28/2012 1:30 PM CDT Temperature - - Respiratory Rate - - Oxygen Saturation - - Inhaled Oxygen Concentration - - Weight 66.2 kg (146 lb) 03/28/2012 1:30 PM CDT Height 160 cm (5' 3 ) 03/28/2012 1:30 PM CDT Body Mass Index 25.86 03/28/2012 1:30 PM CDT documented in this encounter Progress Notes * Sam Guerrero MD - 03/28/2012 12:00 AM CDT ACTIVE PROBLEMS ? Depression ? Hyperlipidemia, Other or Unspecified ? Hypertension, Unspecified ? Irritable Bowel Syndrome CHIEF COMPLAINT The Chief Complaint is: Pt here for check up on iron . HISTORY OF PRESENT ILLNESS Isela Kendall is a 61 year old female. She's mainly here bc 2 of her sons were recently dx w hemochromatosis and she wants lei for that; recent cbc and cmp were ok; she has some vague sx incl the polyarthritis and occ witt but no other sx; the mobic does help the polyarthritis and lei was neg incl ccp/hugo/rf etc (see labs); she is tolerating all her other meds fine needs rf on bblk which is helping. CURRENT MEDICATION ? Lisinopril 10 MG TABS, Once a day, 90 days, 3 refills ? Meloxicam 15 MG TABS, Once a day, 30 days, 0 refills ? Propranolol HCl 40 MG TABS, Twice a Day, 30 days, 0 refills ? PROzac 40 MG CAPS, Once a day, 90 days, 3 refills ? Simvastatin 40 MG TABS, Once a day, 90 days, 3 refills PAST MEDICAL/SURGICAL HISTORY Reported: No recent change in medical history -----Reviewed 03/10. Surgical / Procedural: Surgical / procedural history -----Reviewed 03/10 T&A RSO Hysterectomy, LSO & Incidental Appendectomy Colonoscopy (next 2013) Shawna. Diagnoses: Hypertension ess tremor and palps better on bblk. Irritable bowel syndrome. Hyperlipidemia. 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 Surgical: Hysterectomy SOCIAL HISTORY Behavioral: Not a current smoker. Alcohol: Alcohol use Social. ALLERGIES ? Penicillins Reaction: ., . FAMILY HISTORY Pulmonary disease Fa Asthma Si COPD Cancer PatGF Leukemia Fa Pancreas Bro, Si Skin Heart disease Mo, Bro, TN's Si CAD Essential hypertension Mo Hemochromatosis So x2 Diabetes mellitus So Parkinson's disease Fa mother RA PHYSICAL FINDINGS ? Vitals taken 03/28/2012 01:30 pm BP-Sitting L 102/60 mmHg BP Cuff Size Regular Pulse Rate-Sitting 90 bpm Respiration Rate 20 per min Temp-Oral 98.6 F Height 63 in Weight 146 lbs .4 oz Body Mass Index 25.9 kg/m2 Body Surface Area 1.69 m2 Oxygen Saturation 99 % General Appearance: ?? Well developed. ?? [...] Normal. Gait And Stance: ?? Normal. ASSESSMENT Polyarthritis borderline anemia (hgb 13) and fh hemochromatosis htn. THERAPY ? Continue current medication. ? Clinical summary provided to patient. VACCINATIONS ? Influenza Dose #1 Status: Administered Date: 03/28/2012 PLAN ? Anemia, Megoblastic Lab: Comp metabolic panel Lab: Iron Profile Lab: FERRITIN ? OTHER Meloxicam 15 MG TABS, Once a day, 30 days, 0 refills Propranolol HCl 40 MG TABS, Take as directed, 30 days, 0 refills, 1/2 tab twice a day Meloxicam 15 MG TABS, Once a day, 90 days, 3 refills Propranolol HCl 40 MG TABS, Take as directed, 90 days, 3 refills, 1/2 tab twice a day ? Return to the clinic if condition worsens or new symptoms arise seems to be tab the mobic ok, check renal fx w above labs, no gi se 1 mo supply of meds locally, then yrs' supply to [facility] Sam Guerrero MD Electronically signed by: Kevin Guerrero MD Date: 04/28/2012 21:52 RNMENT MINISTER documented in this encounter Plan of Treatment Not on file documented as of this encounter Procedures Procedure Name Priority Date/Time Associated Diagnosis Comments COMPREHENSIVE METABOLIC PANEL Routine 03/28/2012 2:07 PM CDT IRON BINDING TEST Routine 03/28/2012 2:0 7 PM CDT FERRITIN Routine 03/28/2012 2:07 PM CDT documented in this encounter Results * (ABNORMAL) IRON BINDING TEST (03/28/2012 2:07 PM CDT) IRON 96 37 - 145 MCG/DL [facility] TO [facility] CONVERSION UNBOUND IRON BINDING CAPACITY 284 112 - 346 MCG/DL [facility] TO [facility] CONVERSION IRON BINDING CAPACITY 380(H) 112 - 346 MCG/DL [facility] TO [facility] CONVERSION % IRON SATURATION 25 15 - 50 % [facility] CONVERSION 03/28/2012 2:07 PM CDT 03/28/2012 2:07 PM CDT Narrative [facility] CONVERSION - 03/28/2012 2:07 PM CDT [AUTO]: This test was reviewed. Sam Guerrero MD LABORATORY Final Result [facility] CONVERSION * (ABNORMAL) COMPREHENSIVE METABOLIC PANEL (03/28/2012 2:07 PM CDT) GLUCOSE 136(H) 70 - 99 MG/DL [facility] TO [facility] CONVERSION BUN 20 6 - 20 MG/DL [facility] TO [facility] CONVERSION CREATININE S/P/B 1.0(H) 0.5 - 0.9 MG/DL [facility] CONVERSION SODIUM S/P/B 137 136 - 145 MMOL/L [facility] TO [facility] CONVERSION POTASSIUM S/P/B 4.4 3.5 - 5.1 MMOL/L [facility] TO [facility] CONVERSION CHLORIDE S/P/B 100 98 - 107 MMOL/L [facility] TO [facility] CONVERSION TCO2 27.3 22 - 29 MMOL/L [facility] TO [facility] CONVERSION CALCIUM S/P/B 9.8 8.8 - 10.2 MG/DL [facility] TO [facility] CONVERSION BILIRUBIN TOTAL S/P/B 0.1 0.0 - 1.0 MG/DL [facility] TO [facility] CONVERSION TOTAL PROTEIN S/P/B 6.7 6.4 - 8.3 G/DL [facility] TO [facility] CONVERSION ALBUMIN S/P/B 4.4 3.4 - 4.8 G/DL [facility] CONVERSION AST 15 0 - 32 UNITS/L [facility] CONVERSION ALT 18 0 - 31 UNITS/L [facility] CONVERSION ALKALINE PHOSPHATASE S/P/B 45 35 - 104 UNITS/L [facility] CONVERSION ANION GAP 9.7 0 - 24 MMOL/L [facility] CONVERSION BUN CREATININE RATIO 20.0 6 - 26 [facility] CONVERSION OSMOLALITY (CALC) 279 261 - 280 MOSM/KG [facility] CONVERSION A/G RATIO 1.9 1.1 - 1.9 RATIO [facility] CONVERSION EGFR NON-AFR. AMER. >60 >60 ML/MIN/1.7 3 M2 [facility] TO [facility] CONVERSION EGFR AFR. AMER. >60 >60 ML/MIN/1.7 3 M2 [facility] TO [facility] CONVERSION 03/28/2012 2:07 PM CDT 03/28/2012 2:07 PM CDT Narrative [facility] TO [facility] CONVERSION - 03/28/2012 2:07 PM CDT [AUTO]: This test was reviewed. Sam Guerrero MD LABORATORY Final Result [facility] TO [facility] CONVERSION * FERRITIN (03/28/2012 2:07 PM CDT) [facility] FERRITIN 29.1 5 - 148 ng/mL [facility] TO [facility] CONVERSION Comment: TESTING PERFORMED AT [facility], A MEMBER OF THE [facility]. 03/28/2012 2:07 PM CDT 03/28/2012 2:07 PM CDT Narrative [facility] CONVERSION - 03/28/2012 2:07 PM CDT [Task Forwarded to a nurse] please let her know all her labs were fine and no evidence of hemochromatosis Sam Guerrero MD LABORATORY Final Result [facility] TO [facility] CONVERSION documented in this encounter Visit Diagnoses Not on filedocumented in this encounter
--- OUTSIDE RECORDS SUMMARY | 2024-06-12 07:30 | XMS_ITS | Encounter Summary ---
Author Organization [facility] Address [address] [place] [address]. [place] [address] [place] [address] Care Team Providers Care Hydrogen Operator Name Role Phone Unavailable Primary Care Provider Unavailabl e Encounter Details Date Type Department Care Team (Late st Contact Info) Description 02/01/2012 Abstract [facility] [address] [place] [address] Sam Guerrero MD [id number] [place] [address] Social History Tobacco Use Types Packs/Day Years Used Date Smoking Tobacco: Never Assessed Comments Unknown Sex and Gender Information Value Date Recorded Sex Assigned at Not on file Legal Sex Female 8:18 PM CDT Gender Identity Not on file Sexual Orientation Not on file documented as of this encounter Plan of Treatment Not on file documented as of this encounter Visit Diagnoses Diagnosis Pain in joint, pelvic region and thigh documented in this encounter
--- OUTSIDE RECORDS SUMMARY | 2024-06-12 07:30 | XMS_ITS | Encounter Summary ---
Author Organization [facility] Address [address] [place] [address]. [place] [phone] [place] [address] Care Team Providers Care Oven Baker Name Role Phone Unavailable Primary Care Provider Unavailabl e Encounter Details Date Type Department Care Team (Late st Contact Info) Description 02/01/2012 Abstract [facility] Conversion Md, Generic Conversion, [...]
--- OUTSIDE RECORDS SUMMARY | 2024-06-12 07:30 | XMS_ITS | Encounter Summary ---
Author Organization [facility] Address [address] [place] [address]. [place] [address] [place] [address] Care Team Providers Care Used Car Lot Attendant Name Role Phone Unavailable Primary Care Provider Unavailabl e Encounter Details Date Type Department Care Team (Late st Contact Info) Description 02/08/2012 Abstract [facility] Conversion Sam uGerrero MD [id number] [place] [address] Social History Tobacco Use Types Packs/Day Years Used Date Smoking Tobacco: Never Assessed Comments Unknown Sex and Gender Information Value Date Recorded Sex Assigned at Not on file Legal Sex Female 8:18 PM CDT Gender Identity Not on file Sexual Orientation Not on file documented as of this encounter Progress Notes * Sam Guerrero MD - 02/08/2012 12:00 AM CDT Date: 02/08/2012 Name: Isela Shaw Kendall : 1950 Age: 61 Telephone conversation with patient regarding lab results from 02/01/12-per Dr. Guerrero results of labs and x-ray okay and to follow-up next week for further directives. Note entered by Yancy Irizarry RN NG INVESTIGATOR documented in this encounter Plan of Treatment Not on file documented as of this encounter Visit Diagnoses Not on filedocumented in this encounter
--- OUTSIDE RECORDS SUMMARY | 2024-06-12 07:30 | XMS_ITS | Encounter Summary ---
Author Organization [facility] Address [address] [place] [address]. [place] [address] [place] [address] Care Team Providers Care Cross Cut Saw Operator Name Role Phone Unavailable Primary Care Provider Unavailabl e Encounter Details Date Type Department Care Team (Late st Contact Info) Description 02/14/2012 Abstract [facility] Sam Guerrero MD [id number] [place] [address] Social History Tobacco Use Types Packs/Day Years Used Date Smoking Tobacco: Never Assessed Comments Unknown Sex and Gender Information Value Date Recorded Sex Assigned at Not on file Legal Sex Female 8:18 PM CDT Gender Identity Not on file Sexual Orientation Not on file documented as of this encounter Progress Notes * Sam Guerrero MD - 02/14/2012 12:00 AM CDT Date: 02/14/2012 Name: Isela Kendall : 1950 Age: 61 Patient called stating that she is unable to make her appointment today due to a in the family-appointment was for a follow-up on test results-per Dr. Guerrero results show no RA or autoimmune condition-patient reports taking Naproxen now and her symptoms are controlled at present-will call if problems recur. Note entered by Felipe Irizarry RN Electronically approved by: FELIPE IRIZARRY Date: 02/14/12 12:05 NCIAL SERVICE REP * Sam Guerrero MD - 02/14/2012 12:00 AM CDT Patient Name: Isela Kendall : 1950 .0 Date: 02/14/2012 Prior auth for celebrex was denied. [place] was informed waiting for further instructions. Pharmacy willbe informed. Dictated By: Chloé Alas CMA Electronically approved by: Chloé Alas Date: 02/14/12 15:33 NCIAL SERVICE REP documented in this encounter Plan of Treatment Not on file documented as of this encounter Visit Diagnoses Not on filedocumented in this encounter
--- OUTSIDE RECORDS SUMMARY | 2024-06-12 07:30 | XMS_ITS | Encounter Summary ---
Author Organization [facility] Address [address] [place] [address]. [place], [place] [address] [place] [address] Care Team Providers Care Paper Sales Representative Name Role Phone Unavailable Primary Care Provider Unavailabl e Encounter Details Date Type Department Care Team (Late st Contact Info) Description 02/01/2012 Abstract [facility] Conversion Sam Guerrero MD [id number] [place] [address] Social History Tobacco Use Types Packs/Day Years Used Date Smoking Tobacco: Never Assessed Comments Unknown Sex and Gender Information Value Date Recorded Sex Assigned at Not on file Legal Sex Female 8:18 PM CDT Gender Identity Not on file Sexual Orientation Not on file documented as of this encounter Last Filed Vital Signs Vital Sign Reading Time Taken Comments Blood Pressure 120/78 02/01/2012 1:45 PM CDT Pulse 94 02/01/2012 1:45 PM CDT Temperature - - Respiratory Rate - - Oxygen Saturation - - Inhaled Oxygen Concentration - - Weight 63 kg (139 lb) 02/01/2012 1:45 PM CDT Height 160 cm (5' 3 ) 02/01/2012 1:45 PM CDT Body Mass Index 24.62 02/01/2012 1:45 PM CDT documented in this encounter Progress Notes * Sam Guerrero MD - 02/01/2012 12:00 AM CDT CHIEF COMPLAINT The Chief Complaint is: Join pain. HISTORY OF PRESENT ILLNESS Isela Kendall is a 61 year old female. Since i saw her last she's noticed increased pain in her bilateral hips, elbows and thumbs as well as some fingers, she notes the ue joints swell at times, also feels more tired but attribs some of that to bblk bc she seems to get more run down after she takes it; she sched appt w an orthopedist instl at end of jan but she's concerned bc mom had RA; 800 mg tid of ibp is helping some. CURRENT MEDICATION ? Estrace 1 MG TABS, Once a day, 30 days, 0 refills ? Lisinopril 10 MG TABS, Once a day, 90 days, 3 refills ? Multi-Vitamin TABS, Once a day, 30 days, 0 refills ? Propranolol HCl 40 MG TABS, Twice a Day, 30 days, 0 refills ? PROzac 40 MG CAPS, Once a day, 90 days, 3 refills ? Simvastatin 40 MG TABS, Once a day, 90 days, 3 refills PAST MEDICAL/SURGICAL HISTORY Reported: No recent change in medical history -----Reviewed 02/08. Surgical / Procedural: Surgical / procedural history -----Reviewed 02/08 T&A RSO Hysterectomy, LSO & Incidental Appendectomy Colonoscopy (next 2013) Shawna. Diagnoses: Hypertension ess tremor and palps better on bblk. Irritable bowel syndrome. Hyperlipidemia. Tuberculosis tests +ve Wellness w cleaning technician gingrich. Surgical: Hysterectomy SOCIAL HISTORY Behavioral: Not a current smoker. Alcohol: Alcohol use Social. ALLERGIES ? Penicillins Reaction: ., . FAMILY HISTORY Pulmonary disease Fa Asthma Si COPD Cancer PatGF Leukemia Fa Pancreas Bro, Si Skin Heart disease Mo, Bro, MA's Si CAD Essential hypertension Mo Hemochromatosis So x2 Diabetes mellitus So Parkinson's disease Fa mother RA PHYSICAL FINDINGS ? Vitals taken 02/01/2012 01:45 pm BP-Sitting R 120/78 mmHg BP Cuff Size Regular Pulse Rate-Sitting 94 bpm Respiration Rate 18 per min Temp-Oral 98.6 F Height 63 in Weight 139 lbs Body Mass Index 24.6 kg/m2 Body Surface Area 1.66 m2 Oxygen Saturation 99 % General Appearance: [...] Normal. Gait And Stance: ?? Normal. ASSESSMENT Polyarthritis/myalgias fatigue ET and palps--better on bblk. PLAN ? Myalgia Lab: CK ? Return to the clinic if condition worsens or new symptoms arise Ddx includes OA vs inflamm arthritis, also consider statin SE plan is to check xrays of hips, hands, elbows jack since sx are symmetric also check esr, crp, anticcp, rf, esr, cbc, hugo, ck if lab lei neg then proceed w ortho eval, otw consider rheum eval ok to cont w demario for now sandra lei pans out she's asking if she can dec the bblk to 1/2 tab and that should be fine. Sam Guerrero MD Electronically signed by: Kevin Guerrero MD Date: 02/01/2012 14:07 ER ROBBER documented in this encounter Plan of Treatment Not on file documented as of this encounter Procedures Procedure Name Priority Date/Time Associated Diagnosis Comments HUGO IFA SCRN, WI REFLEX TO TITER Routine 02/01/2012 2:14 PM CDT CYCLIC CITRULLINATED PEPTIDE (CCP)ANTIBODY(IGG) Routine 02/01/2012 2:14 PM CDT RHEUMATOID FACTOR QUAL Routine 2 2:14 PM CDT SED RATE, ERYTHROCYTE (ESR) Routine 02/01/2012 2:14 PM CDT C-REACTIVE PROTEIN, HIGH SENSI Routine 02/01/2012 2:14 PM CDT CBC W/DIFF AUTOMATED Routine 02/01/2012 2:14 PM CDT documented in this encounter Results * RHEUMATOID FACTOR QUAL (02/01/2012 2:14 PM CDT) RHEUMATOID FACTOR NEG [facility] TO [facility]IC CONVERSION 02/01/2012 2:14 PM CDT 02/01/2012 2:14 PM CDT Narrative [facility] TO [facility] CONVERSION - 02/01/2012 2:14 PM CDT [Task Note] awaiting ccp and hugo Sam Guerrero MD LABORATORY Final Result [facility] TO [facility] CONVERSION * (ABNORMAL) C-REACTIVE PROTEIN, HIGH SENSI (02/01/2012 2:14 PM CDT) HS-CRP 3.28(H) <1.0 MG/L [facility] T O EPIC CONVERSION Comment: CCRP MG/L ??RISK ACCORDING TO AHA/CDC <1.0 ? LOW CARDIOVASCULAR RISK 1.0-3.0 ?AVERAGE CARDIOVASCULAR RISK 3.1-10.0 ?? HIGH CARDIOVASCULAR RISK >10.0 ?PERSISTENT ELEVATIONS MAY REPRESENT NON-CARIOVASCULAR INFLAMMATION 02/01/2012 2:14 PM CDT 02/01/2012 2:14 PM CDT Narrative [facility] TO EPIC CONVERSION - 02/01/2012 2:14 PM CDT [Task Note] awaiting ccp and hugo Sam Guerrero MD LABORATORY Final Result [facility] TO EPIC CONVERSION * (ABNORMAL) CBC W/DIFF AUTOMATED (02/01/2012 2:14 PM CDT) WBC 8.3 4.8 - 10.8 K/UL [facility] TO EPIC CONVERSION RBC 4.08(L) 4.1 - 5.1 M/UL [facility] TO EPIC CONVERSION HGB 13.3 12.0 - 16.0 G/DL [facility] TO EPIC CONVERSION HCT 39.6 36 - 46 % [facility] T O EPIC CONVERSION MCV 97.1 80.0 - 100.0 FL [facility] TO EPIC CONVERSION MCH 32.6 26.0 - 34.0 PG [facility] TO EPIC CONVERSION MCHC 33.6 31.0 - 37.0 G/DL [facility] TO EPIC CONVERSION RDW 13.5 11.5 - 14.5 % [facility] TO EPIC CONVERSION PLT 399(H) 150 - 350 K/UL [facility] TO EPIC CONVERSION COMMENT AUTOMATED RBC MORPHOLOGY AND PLATELET EVALUATION NORMAL [facility] TO EPIC CONVERSION NEUTROPHILS % 61.6 50 - 70 % [facility] UP TO EPIC CONVERSION LYMPHOCYTES 26.1 18 - 42 % [facility] TO EPIC CONVERSION MONOCYTES 6.4 2.0 - 11.0 % [facility] TO EPIC CONVERSION EOSINOPHILS 5.5(H) 1.0 - 3.0 % [facility] TO EPIC CONVERSION BASOPHILS 0.4 0.0 - 1.0 % [facility] TO EPIC CONVERSION ABS. NEUTROPHILS 5.1 1.69 - 7.81 K/UL [facility] TO EPIC CONVERSION 02/01/2012 2:14 PM CDT 02/01/2012 2:14 PM CDT Narrative [facility] TO EPIC CONVERSION - 02/01/2012 2:14 PM CDT [Task Note] awaiting ccp and hugo Sam Guerrero MD LABORATORY Final Result [facility] TO EPIC CONVERSION * HUGO IFA SCRN, WI REFLEX TO TITER (02/01/2012 2:14 PM CDT) HUGO [facility] T O EPIC CONVERSION Comment: SEE NOTE Negative Reference range: Negative ADDITIONAL TESTING SEE NOTE [facility] TO EPIC CONVERSION Comment: REPORT Not indicated Test Performed by [employer], [address] [place], [place] Juan Luis Reynoso M.D., Ph.D., Director of Laboratories , [facility] [id number] 02/01/2012 2:14 PM CDT 02/01/2012 2:14 PM CDT Narrative [facility] TO [facility] CONVERSION - 02/01/2012 2:14 PM CDT [Task Forwarded to a nurse] labs and xrays all look fine; suggest she get appt w me (next week is fine) to discuss next steps Sam Guerrero MD LABORATORY Final Result [facility] TO [facility] CONVERSION * SED RATE, ERYTHROCYTE (ESR) (02/01/2012 2:14 PM CDT) ESR 6 0 - 30 MM/HR [facility] TO [facility]IC CONVERSION 02/01/2012 2:14 PM CDT 02/01/2012 2:14 PM CDT Narrative [facility] TO EP[facility] CONVERSION - 02/01/2012 2:14 PM CDT [Task Note] awaiting ccp and hugo Sam Guerrero MD LABORATORY Final Result Performing Organization Address [facility] Co de Phone Number [facility] TO EPIC CONVERSION * CYCLIC CITRULLINATED PEPTIDE (CCP)ANTIBODY(IGG) (02/01/2012 2:14 PM CDT) CITRULLINE PEPTIDE ANTIBODY SEE NOTE [facility] TO EPIC CONVERSION Comment: <16 Reference range: <20 Unit: Units Negative: ? <20 Weak Positive: ?20 - 39 Moderate Positive: ?40 - 59 Strong Positive: ?>59 Test Performed by [employer] [facility], [address] [place], [place] Juan Luis Reynoso M.D., Ph.D., Director of Laboratories , [facility] [id number] 02/01/2012 2:14 PM CDT 02/01/2012 2:14 PM CDT Narrative [facility] TO EPIC CONVERSION - 02/01/2012 2:14 PM CDT [Task Forwarded to a nurse] labs and xrays all look fine; suggest she get appt w me (next week is fine) to discuss next steps us Sam Guerrero MD LABORATORY Final Result [facility] TO EPIC CONVERSION documented in this encounter Visit Diagnoses Not on filedocumented in this encounter
--- OUTSIDE RECORDS SUMMARY | 2024-06-12 07:31 | XMS_ITS | Encounter Summary ---
Author Organization [facility] Address [address] [place] [address]. [place] [id number] [place] [address] Care Team Providers Care Scouring Train Operator Name Role Phone Unavailable Primary Care Provider Unavailabl e Encounter Details Date Type Department Care Team (Late st Contact Info) Description 02/13/2010 Abstract [facility] Conversion Md, Generic Conversion, [...]
--- OUTSIDE RECORDS SUMMARY | 2024-06-12 07:31 | XMS_ITS | Encounter Summary ---
Author Organization [facility] Address [address] [place] [address]. [place] [phone] [place] [address] Care Team Providers Care Pattern Mechanic Name Role Phone Unavailable Primary Care Provider Unavailabl e Encounter Details Date Type Department Care Team (Late st Contact Info) Description 12/26/2010 Abstract [facility] Conversion Md, Generic Conversion, Social [...]
--- OUTSIDE RECORDS SUMMARY | 2024-06-12 07:31 | XMS_ITS | Encounter Summary ---
Author Organization [facility] Address [address] [place] [address]. [place] [address] [place] [address] Care Team Providers Care Pool Table Operator Name Role Phone Unavailable Primary Care Provider Unavailabl e Encounter Details Date Type Department Care Team (Late st Contact Info) Description 02/09/2010 Abstract [facility] CONVERSION [address] [place] [address] Michael Mercado MD [address] [place] [address] Social History Tobacco Use Types Packs/Day [...]
--- OUTSIDE RECORDS SUMMARY | 2024-06-12 07:31 | XMS_ITS | Encounter Summary ---
Author Organization [facility] Address [address] [place] [address]. [place] [address] [place] [address] Care Team Providers Care Farm Owner Operator Name Role Phone Unavailable Primary Care Provider Unavailabl e Encounter Details Date Type Department Care Team (Late st Contact Info) Description 02/09/2010 Abstract [facility] Michael Bone MD [address] [address] Social History Tobacco Use Types Packs/Day Years Used Date Smoking Tobacco: Never Assessed Comments Unknown Sex and Gender Information Value Date Recorded Sex Assigned at Not on file Legal Sex Female 8:18 PM CDT Gender Identity Not on file Sexual Orientation Not on file documented as of this encounter Last Filed Vital Signs Vital Sign Reading Time Taken Comments Blood Pressure 132/84 02/09/2010 8:50 AM CDT Pulse 106 02/09/2010 8:50 AM CDT Temperature - - Respiratory Rate - - Oxygen Saturation - - Inhaled Oxygen Concentration - - Weight 56.2 kg (124 lb) 02/09/2010 8:50 AM CDT Height 158.8 cm (5' 2.5 ) 02/09/2010 8:50 AM CDT Body Mass Index 22.32 02/09/2010 8:50 AM CDT documented in this encounter Progress Notes * Michael Mercado MD - 02/09/2010 12:00 AM CDT CHIEF COMPLAINT The Chief Complaint is: Depression. HISTORY OF PRESENT ILLNESS LISSET RAM is a 59 year old female. ? No symptoms since last visit ?? Feeling fine ?? No new symptoms CURRENT MEDICATION ? Claritin 10 MG TABS, Once a day, 30 days, 0 refills ? Estrace 1 MG TABS, Once a day, 30 days, 0 refills ? Lisinopril 10 MG TABS, Once a day, 90 days, 3 refills ? Multi-Vitamin TABS, Once a day, 30 days, 0 refills ? PROzac 40 MG CAPS, Once a day, 30 days, 0 refills ? Rolaids Extra Strength 675-135 MG CHEW, 2 once a day, 30 days, 0 refills ? Simvastatin 40 MG TABS, Once a day, 90 days, 3 refills, Dose was increased today ALLERGIES ? Penicillins Reaction: ., . PHYSICAL FINDINGS ? Vitals taken 02/09/2010 08:50 am BP-Sitting 132/84 mmHg 100 - 120/60 - 80 Pulse Rate-Sitting 106 bpm 60 - 100 Respiration Rate 16 per min 18 - 26 Temp-Oral 98.5 F 97.6 - 99.6 Height 62.5 in 59.8 - 68.1 Weight 124 lbs 98 - 183 Body Mass Index 22.3 kg/m2 18 - 25 Body Surface Area 1.57 m2 Oxygen Saturation 100 % 93 - 100 General Appearance: ?? Well developed. ?? Well nourished. ?? In no acute distress. Neck: Palpation: ?? Of the neck revealed no abnormalities. Suppleness: ?? Neck demonstrated no decrease in suppleness. Trachea: ?? Showed no abnormalities. Thyroid: ?? Showed no abnormalities. Cervical Mass: ?? No cervical mass was seen. Eyes: General/bilateral: Extraocular Movements: ?? ENT evaluation of ocular movements was normal. Pupils: ?? PERRLA. Sclera: ?? Normal. Ears: General/bilateral: ?? Ears: normal. Tympanic Membrane: ?? Normal. Nose: General/bilateral: ?? Nose: normal. Pharynx: ?? Normal. Larynx: General/bilateral: ?? Larynx had no mucosal abnormalities. Chest: ? Chest: Clear to PA. Lungs: ?? No adventitious sounds were present. Cardiovascular: Heart Sounds: ?? S1 normal. ?? S2 normal. ?? No S3 heard. ?? No S4 heard. Murmurs: ?? No murmurs were heard. Apical Impulse: ?? Normal. Carotid Arteries: ?? No bilateral carotid bruits. Edema: ?? Not present. Abdomen: ? Abdomen: Kidneys were not papable and bowel sounds were present. Palpation: ?? Abdominal palpation revealed no abnormalities. ?? Abdomen was soft. ?? No abdominal tenderness. ?? No mass was palpated in the abdomen. Liver: ?? Not enlarged. Spleen: ?? Not enlarged. ASSESSMENT ? Benign essential hypertension ? Hyperlipidemia ? Depression THERAPY ? Continue current medication. PLAN ? OTHER PROzac 40 MG CAPS, Once a day, 30 days, 9 refills ? A lipid profile ? ALT (SGPT) level ? AST (SGOT) level ? Return to the clinic if condition worsens or new symptoms arise ? Follow-up visit in 6 months She'll be advised of any abnormal labs when they're made available. She's to report any problems. MICHAEL MERCADO Electronically signed by: DR. MERCADO Date: 02/09/2010 09:16 ORGAN TECHNICIAN documented in this encounter Plan of Treatment Not on file documented as of this encounter Procedures Procedure Name Priority Date/Time Associated Diagnosis Comments AST/SGOT Routine 02/09/2010 9:32 AM CDT LIPID PANEL Routine 02/09/2010 9:32 AM CDT ALT/SGPT Routine 02/09/2010 9:32 AM CDT documented in this encounter Results * AST/SGOT (02/09/2010 9:32 AM CDT) AST 17 (0-32) UNITS/L [facility] TO EPIC CONVERSION 02/09/2010 9:32 AM CDT 02/09/2010 9:32 AM CDT Narrative [facility] TO EPIC CONVERSION - 02/09/2010 9:32 AM CDT [AUTO]: This test was reviewed. us Michael Mercado MD LABORATORY Final Res ult [facility] TO EPIC CONVERSION * LIPID PANEL (02/09/2010 9:32 AM CDT) CHOLESTEROL 170 (0-200) MG/DL [facility] TO EPIC CONVERSION TRIGLYCERIDES 118 (0-150) MG/DL [facility] TO EPIC CONVERSION HDL 67 (>40) MG/DL [facility] TO EPIC CONVERSION LDL (CALCULATED) 79 (<130) MG/DL [facility] TO EPIC CONVERSION Comment: AN LDL OF <100 IS OPTIMAL, ELEVATED IS DEFINED >130 BY CURRENT GUIDELINES, LDL GOALS ARE DEPENDENT UPON OTHER RISK FACTORS 02/09/2010 9:32 AM CDT 02/09/2010 9:32 AM CDT Narrative [facility] TO EPIC CONVERSION - 02/09/2010 9:32 AM CDT [AUTO]: This test was reviewed. us Michael Mercado MD LABORATORY Final Res ult [facility] TO EPIC CONVERSION * ALT/SGPT (02/09/2010 9:32 AM CDT) ALT 19 (0-31) UNITS/L [facility] TO EPIC CONVERSION 02/09/2010 9:32 AM CDT 02/09/2010 9:32 AM CDT Narrative [facility] TO EPIC CONVERSION - 02/09/2010 9:32 AM CDT [AUTO]: This test was reviewed. us Michael Mercado MD LABORATORY Final Res ult [facility] TO EPIC CONVERSION documented in this encounter Visit Diagnoses Not on filedocumented in this encounter
--- OUTSIDE RECORDS SUMMARY | 2024-06-12 07:31 | XMS_ITS | Encounter Summary ---
Author Organization [facility] Address [address] [place] [address]. [place] [phone] [place] [address] Care Team Providers Care Shag Truck Driver Name Role Phone Unavailable Primary Care Provider Unavailabl e Encounter Details Date Type Department Care Team (Late st Contact Info) Description 12/09/2009 Abstract [facility] Conversion Md, Generic Conversion, Social [...]
--- OUTSIDE RECORDS SUMMARY | 2024-06-12 07:31 | XMS_ITS | Encounter Summary ---
Author Organization [facility] Address [address] [place] [address]. [place] [phone] [place] [address] Care Team Providers Care Snow Blower Name Role Phone Unavailable Primary Care Provider Unavailabl e Encounter Details Date Type Department Care Team (Late st Contact Info) Description 11/06/2008 Abstract [facility] Conversion Md, Generic Conversion, Social [...]
--- OUTSIDE RECORDS SUMMARY | 2024-06-12 07:31 | XMS_ITS | Encounter Summary ---
Author Organization [facility] Address [address] [place] [address]. [place] [phone] [place] [address] Care Team Providers Care Maintenance Shop Laborer Name Role Phone Unavailable Primary Care Provider Unavailabl e Encounter Details Date Type Department Care Team (Late st Contact Info) Description 03/16/[address] [facility] Conversion Md, Generic Conversion, [...]
--- OUTSIDE RECORDS SUMMARY | 2024-06-12 07:31 | XMS_ITS | Encounter Summary ---
Author Organization [facility] Address [address] [place] [address]. [place] [address] [place] [address] Care Team Providers Care Agribusiness Professor Name Role Phone Unavailable Primary Care Provider Unavailabl e Encounter Details Date Type Department Care Team (Late st Contact Info) Description 12/15/2011 Abstract [facility] Conversion Sam Guerrero MD [id number] [place] [address] Social History Tobacco Use Types Packs/Day Years Used Date Smoking Tobacco: Never Assessed Comments Unknown Sex and Gender Information Value Date Recorded Sex Assigned at Not on file Legal Sex Female 8:18 PM CDT Gender Identity Not on file Sexual Orientation Not on file documented as of this encounter Progress Notes * Sam Guerrero MD - 12/15/2011 12:00 AM CDT Patient Name: Isela Kendall : 1950 .0 Date: 12/15/2011 Telephone conversation with patient regarding Holter Monitor results from 12-07-11. Per Dr. Guerrero, results OK so patient to try Propranolol 40mg BID to help with p alpatations and tremors - patient insructed to watch for dizziness and low B/P - patient will f/u in 1 month - sooner if needed. Entered by: Keyona Purvis CMA DATA ARCHITECT documented in this encounter Plan of Treatment Not on file documented as of this encounter Visit Diagnoses Not on filedocumented in this encounter
--- OUTSIDE RECORDS SUMMARY | 2024-06-12 07:31 | XMS_ITS | Encounter Summary ---
Author Organization [facility] Address [address] [place] [address]. [place], [place] [phone] [place] [address] Care Team Providers Care Board Turner Name Role Phone Unavailable Primary Care Provider Unavailabl e Encounter Details Date Type Department Care Team (Late st Contact Info) Description 12/07/2011 Abstract [facility] [address] [place] [address] Sam Guerrero MD [id number] [place] [address] Social History Tobacco Use Types Packs/Day Years Used Date Smoking Tobacco: Never Assessed Comments Unknown Sex and Gender Information Value Date Recorded Sex Assigned at Not on file Legal Sex Female 8:18 PM CDT Gender Identity Not on file Sexual Orientation Not on file documented as of this encounter Plan of Treatment Not on file documented as of this encounter Visit Diagnoses Diagnosis Essential hypertension Unspecified essential hypertension documented in this encounter
--- OUTSIDE RECORDS SUMMARY | 2024-06-12 07:31 | XMS_ITS | Encounter Summary ---
Author Organization [facility] Address [address] [place] [address]. [place] [address] [place] [address] Care Team Providers Care Director Federal Name Role Phone Unavailable Primary Care Provider Unavailabl e Encounter Details Date Type Department Care Team (Late st Contact Info) Description 04/18/2009 Abstract [facility] Michael Bone MD [address] [address] Social History Tobacco Use Types Packs/Day Years Used Date Smoking Tobacco: Never Assessed Comments Unknown Sex and Gender Information Value Date Recorded Sex Assigned at Not on file Legal Sex Female 8:18 PM CDT Gender Identity Not on file Sexual Orientation Not on file documented as of this encounter Last Filed Vital Signs Vital Sign Reading Time Taken Comments Blood Pressure 155/93 04/18/2009 8:10 AM INTERNET APPLICATION DEVELOPER Pulse 89 04/18/2009 8:10 AM INTERNET APPLICATION DEVELOPER Temperature - - Respiratory Rate - - Oxygen Saturation - - Inhaled Oxygen Concentration - - Weight 59 kg (130 lb) 04/18/2009 8:10 AM INTERNET APPLICATION DEVELOPER Height 158.8 cm (5' 2.5 ) 04/18/2009 8:10 AM INTERNET APPLICATION DEVELOPER Body Mass Index 23.4 04/18/2009 8:10 AM INTERNET APPLICATION DEVELOPER documented in this encounter Progress Notes * Michael Mercado MD - 04/18/2009 12:00 AM CST CHIEF COMPLAINT The Chief Complaint is: Elevated BP x 2 weeks. HISTORY OF PRESENT ILLNESS LISSET RAM is a 58 year old female. ? No symptoms since last visit ?? No systemic symptoms She's gained 15lbs in the last 6 months. She was at the dentist's and her BP was up. She's been monitoring it since and it's consistently up. She's asymptomatic otherwise ?? Feeling fine ?? No new symptoms CURRENT MEDICATION ? Estrace 1 MG TABS, Once a day, 30 days, 0 refills ? Aspirin 81 MG TABS, Once a day, 30 days, 0 refills ? Ocuvite TABS, Once a day, 30 days, 0 refills ? Vitamin A 21180 UNIT TABS, Once a day, 30 days, 0 refills ? Simvastatin 20 MG TABS, Once a day, 30 days, 11 refills ALLERGIES ? Penicillins Reaction: ., . PHYSICAL FINDINGS ? Vitals taken 04/18/2009 08:10 AM Systolic BP-Sitting 155 mmHg 100 - 120 Diastolic BP-Sitting 93 mmHg 60 - 80 Pulse Rate-Sitting 89 bpm 60 - 100 Respiration Rate 16 per min 18 - 26 Temp-Oral 97.4 F 97.6 - 99.6 Height 62.5 in 59.843 - 68.11 Weight 130 lbs 98 - 183 Body Mass Index 23.4 Body Surface Area 1.60 Oxygen Saturation 99 % 93 - 100 General appearance: ?? Well developed. ?? Well nourished. ?? In no acute distress. Neck: Palpation: ?? Of the neck revealed no abnormalities. Suppleness: ?? Neck demonstrated no decrease in suppleness. Trachea: ?? Showed no abnormalities. Thyroid: ?? Showed no abnormalities. Cervical Mass (___cm): ?? No cervical mass was seen. Eyes: General/bilateral: Extraocular Movements: ?? ENT evaluation of ocular movements was normal. Pupils: ?? PERRLA. Sclera: ?? Normal. Ears: General/bilateral: ?? Ears: normal. Tympanic Membrane: ?? Normal. Nose: ?? Normal. Pharynx: ?? Normal. Larynx: ?? Had no mucosal abnormalities. Chest: ? Chest: Clear to PA. Lungs: ?? No adventitious sounds were present. Cardiovascular system: Heart Sounds: ?? S1 normal. ?? S2 normal. ?? No S3 heard. ?? No S4 heard. Murmurs: ?? No murmurs were heard. Apical Impulse: ?? Normal. Arterial Pulses: ?? No bilateral carotid bruits. Edema: ?? Not present. Abdomen: ? Abdomen: Kidneys were not papable and bowel sounds were present. Palpation: ?? Abdominal palpation revealed no abnormalities. ?? Abdomen was soft. ?? No abdominal tenderness. ?? No mass was palpated in the abdomen. Hepatic Findings: ?? Liver was not enlarged. Splenic Findings: ?? Spleen was not enlarged. ASSESSMENT ? Benign essential hypertension ? Hyperlipidemia THERAPY ? Continue current medication. PLAN ? OTHER Lisinopril 10 MG TABS, Once a day, 90 days, 1 refills ? CBC ? A comprehensive metabolic panel ? A lipid profile ? Serum TSH level and reflex T4 ? Return to the clinic if condition worsens or new symptoms arise ? Follow-up visit in 6 months She'll continue to monitor her pressures while on the Lisinopril. She's to diet and lose the 15lbs.She'll be advised of any abnormal labs when they're made available. She's to report any problems. MICHAEL MERCADO Entered data sealed by: DR. MERCADO Date: 04/18/2009 08:52 RNET APPLICATION DEVELOPER documented in this encounter Plan of Treatment Not on file documented as of this encounter Procedures Procedure Name Priority Date/Time Associated Diagnosis Comments TSH W/REFLEX Routine 04/18/2009 8:49 AM INTERNET APPLICATION DEVELOPER COMPREHENSIVE METABOLIC PANEL Routine 04/18/2009 8:49 AM INTERNET APPLICATION DEVELOPER LIPID PANEL Routine 04/18/2009 8:49 AM INTERNET APPLICATION DEVELOPER CBC W/DIFF AUTOMATED Routine 04/18/2009 8:49 AM INTERNET APPLICATION DEVELOPER documented in this encounter Results * TSH W/REFLEX (04/18/2009 8:49 AM INTERNET APPLICATION DEVELOPER) TSH ULTRASENSITIVE 1.04 (0.35-5.5 0) uIU/ML [facility] TO [employer] CONVERSION Comment:FREE T4 NOT INDICATE D 04/18/2009 8:49 AM INTERNET APPLICATION DEVELOPER 04/18/2009 8:49 AM INTERNET APPLICATION DEVELOPER Narrative [facility] TO EPIC CONVERSION - 04/18/2009 8:49 AM INTERNET APPLICATION DEVELOPER [AUTO]: This test was reviewed. us Roch Estevan Mercado MD LABORATORY Final Res ult [facility] TO EP[facility] CONVERSION * (ABNORMAL) COMPREHENSIVE METABOLIC PANEL (04/18/2009 8:49 AM INTERNET APPLICATION DEVELOPER) GLUCOSE 85 (70-99) MG/DL [facility] TO EPIC CONVERSION BUN 13 (6-20) MG/DL [facility] TO EPIC CONVERSION CREATININE S/P/B 0.7 (0.5-0.9) MG/DL [facility] TO EPIC CONVERSION SODIUM S/P/B 137 (136-145) MMOL/L [facility] TO [facility] CONVERSION POTASSIUM S/P/B 4.3 (3.5-5.1) MMOL/L [facility] TO EP[facility] CONVERSION CHLORIDE S/P/B 103 (98-107) MMOL/L [facility] TO [facility] CONVERSION TCO2 26.5 (22-29) MMOL/L [facility] TO [facility] CONVERSION CALCIUM S/P/B 8.7(L) (8.8-10.2) MG/DL [facility] TO EPIC CONVERSION BILIRUBIN TOTAL S/P/B 0.3 (0.0-1.0) MG/DL [facility] TO EPIC CONVERSION TOTAL PROTEIN S/P/B 6.7 (6.4-8.3) G/DL [facility] TO EP[facility] CONVERSION ALBUMIN S/P/B 4.0 (3.4-4.8) G/DL [facility] TO EP[facility] CONVERSION AST 15 (0-32) UNITS/L [facility] TO EP[facility] CONVERSION ALT 17 (0-31) UNITS/L [facility] TO [facility] CONVERSION ALKALINE PHOSPHATASE S/P/B 55 (35-104) UNITS/L [facility] TO EPIC CONVERSION ANION GAP 7.5 (0-24) MMOL/L [facility] TO EP[facility] CONVERSION BUN CREATININE RATIO 18.6 (6-26) [facility] TO [facility] CONVERSION OSMOLALITY (CALC) 273 (261-280) MOSM/KG [facility] TO [facility] CONVERSION A/G RATIO 1.5 (1.1-1.9) RATIO [facility] TO EPIC CONVERSION GFR ESTIMATE >60 (>60) ML/MIN/1.7 3 M2 [facility] TO [facility] CONVERSION EGFR AFR. AMER. >60 (>60) ML/MIN/1.7 3 M2 [facility] TO EPIC CONVERSION 04/18/2009 8:49 AM INTERNET APPLICATION DEVELOPER 04/18/2009 8:49 AM INTERNET APPLICATION DEVELOPER Narrative [facility] TO EPIC CONVERSION - 04/18/2009 8:49 AM INTERNET APPLICATION DEVELOPER [AUTO]: This test was reviewed. us Michael Mercado MD LABORATORY Final Res ult [facility] TO EP[facility] CONVERSION * (ABNORMAL) CBC W/DIFF AUTOMATED (04/18/2009 8:49 AM INTERNET APPLICATION DEVELOPER) WBC 5.3 (4.8-10.8 ) K/UL [facility] TO EP[facility] CONVERSION RBC 4.11(L) (4.20-5.4 0) M/UL [facility] TO EPIC CONVERSION HEMOGLOBIN MIXED VENOUS 13.1 (12.0-15. 0) G/DL [facility] TO EPIC CONVERSION HCT 38.7 (35.0-49. 0) % [facility] TO [facility] CONVERSION MCV 94.3 (80.0-100 .0) FL [facility] TO EPIC CONVERSION MCH 31.9 (27-33) PG [facility] TO [facility]IC CONVERSION MCHC 33.9 (33.0-37. 0) G/DL [facility] TO EP[facility] CONVERSION RDW 12.7 (11.5-14. 5) % [facility] TO [facility] CONVERSION PLATELET COUNT 397 (140-400) K/UL [facility] TO EPIC CONVERSION COMMENT AUTOMATED RBC MORPHOLOGY AND PLATELET EVALUATION NORMAL [facility] TO [facility] CONVERSION SEG NEUTROPHILS 66.8 (50-70) % [facility] ROUP TO EPIC CONVERSION LYMPHOCYTES 25.2 (18-42) % [facility] TO EPIC CONVERSION MONOCYTES 6.3 (2.0-11.0 ) % [facility] TO EPIC CONVERSION EOSINOPHILS 1.5 (1.0-3.0) % [facility] TO EPIC CONVERSION BASOPHILS 0.2 (0.0-1.0) % [facility] TO EPIC CONVERSION ABS. NEUTROPHILS 3.6 (1.69-7.8 1) K/UL [facility] TO EPIC CONVERSION 04/18/2009 8:49 AM INTERNET APPLICATION DEVELOPER 04/18/2009 8:49 AM INTERNET APPLICATION DEVELOPER Narrative [facility] TO EPIC CONVERSION - 04/18/2009 8:49 AM INTERNET APPLICATION DEVELOPER [AUTO]: This test was reviewed. us Michael Mercado MD LABORATORY Final Res ult Performing Organization Address [facility]/State/ZIP Co de Phone Number [facility] TO EPIC CONVERSION * (ABNORMAL) LIPID PANEL (04/18/2009 8:49 AM INTERNET APPLICATION DEVELOPER) CHOLESTEROL 181 (0-200) MG/DL [facility] TO EPIC CONVERSION TRIGLYCERIDES 187(H) (0-150) MG/DL [facility] TO EPIC CONVERSION HDL 59 (>40) MG/DL [facility] TO EPIC CONVERSION LDL (CALCULATED) 85 (<130) MG/DL [facility] TO EPIC CONVERSION Comment: AN LDL OF <100 IS OPTIMAL, ELEVATED IS DEFINED >130 BY CURRENT GUIDELINES, LDL GOALS ARE DEPENDENT UPON OTHER RISK FACTORS 04/18/2009 8:49 AM INTERNET APPLICATION DEVELOPER 04/18/2009 8:49 AM INTERNET APPLICATION DEVELOPER Narrative [facility] TO EPIC CONVERSION - 04/18/2009 8:49 AM INTERNET APPLICATION DEVELOPER [AUTO]: This test was reviewed. us Michael Mercado MD LABORATORY Final Res ult Performing Organization Address [facility]/ZIP Co de Phone Number [facility] TO EPIC CONVERSION documented in this encounter Visit Diagnoses Not on filedocumented in this encounter
--- OUTSIDE RECORDS SUMMARY | 2024-06-12 07:31 | XMS_ITS | Encounter Summary ---
Author Organization [facility] Address [address] [place] [address]. [place] [id number] [place] [address] Care Team Providers Care Pillowcase Cleaner Name Role Phone Unavailable Primary Care Provider Unavailabl e Encounter Details Date Type Department Care Team (Late st Contact Info) Description 12/07/2011 Abstract [facility] Conversion Md, Generic Conversion, [...]
--- OUTSIDE RECORDS SUMMARY | 2024-06-12 07:31 | XMS_ITS | Encounter Summary ---
Author Organization [facility] Address [address] [place] [address]. [place] [id number] [place] [address] Care Team Providers Care Children'S Program Coordinator Name Role Phone Unavailable Primary Care Provider Unavailabl e Encounter Details Date Type Department Care Team (Late st Contact Info) Description 04/18/2009 Abstract [facility] Conversion Md, Generic Conversion, Social [...]
--- OUTSIDE RECORDS SUMMARY | 2024-06-12 07:31 | XMS_ITS | Encounter Summary ---
Author Organization [facility] Address [address] [place] [address]. [place] [address] [place] [address] Care Team Providers Care Steward/Stewardess Third Name Role Phone Unavailable Primary Care Provider Unavailabl e Encounter Details Date Type Department Care Team (Late st Contact Info) Description 12/09/2009 Abstract [facility] Michael Bone MD [address] [address] Social History Tobacco Use Types Packs/Day Years Used Date Smoking Tobacco: Never Assessed Comments Unknown Sex and Gender Information Value Date Recorded Sex Assigned at Not on file Legal Sex Female 8:18 PM CDT Gender Identity Not on file Sexual Orientation Not on file documented as of this encounter Last Filed Vital Signs Vital Sign Reading Time Taken Comments Blood Pressure 128/84 12/09/2009 11:30 AM CDT Pulse 107 12/09/2009 11:30 AM CDT Temperature - - Respiratory Rate - - Oxygen Saturation - - Inhaled Oxygen Concentration - - Weight 54.4 kg (120 lb) 12/09/2009 11:30 AM CDT Height 158.8 cm (5' 2.5 ) 12/09/2009 11:30 AM CD T Body Mass Index 21.6 12/09/2009 11:30 AM CDT documented in this encounter Progress Notes * Michael Mercado MD - 12/09/2009 12:00 AM CDT CHIEF COMPLAINT The Chief Complaint is: Check up and order for mammorgram. HISTORY OF PRESENT ILLNESS LISSET RAM is a 59 year old female. ? No symptoms since last visit ?? Feeling fine ?? No new symptoms CURRENT MEDICATION ? Claritin 10 MG TABS, Once a day, 30 days, 0 refills ? Estrace 1 MG TABS, Once a day, 30 days, 0 refills ? Lisinopril 10 MG TABS, Once a day, 90 days, 0 refills ? Multi-Vitamin TABS, Once a day, 30 days, 0 refills ? Simvastatin 20 MG TABS, Once a day, 30 days, 3 refills PAST MEDICAL/SURGICAL HISTORY Reported History: No recent change in medical history -----Reviewed and Unchanged . Surgical / Procedural: Surgical / procedural history -----Reviewed and Unchanged T&A RSO Hysterectomy, LSO & Incidental Appendectomy Colonoscopy (next 2009) Shawna. Diagnosis History: Hypertension. Irritable bowel syndrome. Hyperlipidemia. Tuberculosis tests +ve SOCIAL HISTORY Social history unchanged -----Reviewed and Unchanged . Behavioral: Not smoking. Alcohol: Alcohol use Social. ALLERGIES ? Penicillins Reaction: ., . FAMILY HISTORY Family history unchanged -----Reviewed and Unchanged Pulmonary disease Fa Asthma Si COPD Cancer PatGF Leukemia Fa Pancreas Bro, Si Skin Heart disease Mo, Bro, HI's Si CAD Essential hypertension Mo Hemochromatosis So x2 Diabetes mellitus So Parkinson's disease Fa PHYSICAL FINDINGS ? Vitals taken 12/09/2009 11:30 am BP-Sitting 128/84 mmHg 100 - 120/60 - 80 Pulse Rate-Sitting 107 bpm 60 - 100 Respiration Rate 16 per min 18 - 26 Temp-Oral 98.4 F 97.6 - 99.6 Height 62.5 in 59.8 - 68.1 Weight 120 lbs 98 - 183 Body Mass Index 21.6 kg/m2 18 - 25 Body Surface Area 1.55 m2 Oxygen Saturation 100 % 93 - 100 General Appearance: ?? Oriented to time, place, and person. ?? Well developed. ?? Well nourished. ?? [...] ?? Not enlarged. Musculoskeletal System: General/bilateral: ?? Musculoskeletal system: normal. ?? Normal movement of all extremities. Neurological: Cranial Nerves: ?? Normal 2-12 intact. Gait And Stance: ?? Normal. ASSESSMENT ? Benign essential hypertension ? Irritable bowel syndrome ? Hyperlipidemia THERAPY ? Continue current medication. PLAN ? OTHER Lisinopril 10 MG TABS, Once a day, 90 days, 3 refills Simvastatin 20 MG TABS, Once a day, 90 days, 3 refills ? CBC ? A comprehensive metabolic panel ? A lipid profile ? A mammogram ? Return to the clinic if condition worsens or new symptoms arise ? Follow-up visit in 6 months She'll be advised of any tests when they're made available. She's to report any problem. MICHAEL MERCADO Electronically signed by: DR. MERCADO Date: 12/09/2009 12:42 S UTILITY REPRESENTATIVE documented in this encounter Plan of Treatment Not on file documented as of this encounter Procedures Procedure Name Priority Date/Time Associated Diagnosis Comments COMPREHENSIVE METABOLIC PANEL Routine 12/09/2009 1:27 PM CDT LIPID PANEL Routine 12/09/2009 1:27 PM CDT CBC W/DIFF AUTOMATED Routine 12/09/2009 1:27 PM CDT documented in this encounter Results * (ABNORMAL) CBC W/DIFF AUTOMATED (12/09/2009 1:27 PM CDT) WBC 8.4 (4.8-10.8 ) K/UL [facility] TO EPIC CONVERSION RBC 4.09(L) (4.20-5.4 0) M/UL [facility] TO EPIC CONVERSION HEMOGLOBIN MIXED VENOUS 13.5 (12.0-15. 0) G/DL [facility] TO EPIC CONVERSION HCT 39.8 (35.0-49. 0) % [facility] TO EPIC CONVERSION MCV 97.2 (80.0-100 .0) FL [facility] TO EPIC CONVERSION MCH 33.1(H) (27-33) PG [facility] TO EPIC CONVERSION MCHC 34.0 (33.0-37. 0) G/DL [facility] TO EPIC CONVERSION RDW 12.5 (11.5-14. 5) % [facility] TO EP[facility] CONVERSION PLATELET COUNT 401(H) (140-400) K/UL [facility] TO EPIC CONVERSION COMMENT AUTOMATED RBC MORPHOLOGY AND PLATELET EVALUATION NORMAL [facility] TO [facility] CONVERSION SEG NEUTROPHILS 63.5 (50-70) % [facility] ROUP TO EPIC CONVERSION LYMPHOCYTES 29.2 (18-42) % [facility] TO EPIC CONVERSION MONOCYTES 4.9 (2.0-11.0 ) % [facility] TO EPIC CONVERSION EOSINOPHILS 2.1 (1.0-3.0) % [facility] TO EPIC CONVERSION BASOPHILS 0.3 (0.0-1.0) % [facility] TO EPIC CONVERSION ABS. NEUTROPHILS 5.3 (1.69-7.8 1) K/UL [facility] TO EPIC CONVERSION 12/09/2009 1:27 PM CDT 12/09/2009 1:27 PM CDT Narrative [facility] TO EPIC CONVERSION - 12/09/2009 1:27 PM CDT [Task Forwarded to kaykay] Increase the Simvastatin to 40mg qd. She may not have picked up the new Rx as yet so you can increase it at the pharmacy. ?[facility] in [place]. us Michael Mercado MD LABORATORY Final Res ult [facility] TO EPIC CONVERSION * (ABNORMAL) COMPREHENSIVE METABOLIC PANEL (12/09/2009 1:27 PM CDT) GLUCOSE 95 (70-99) MG/DL [facility] TO EPIC CONVERSION BUN 16 (6-20) MG/DL [facility] TO EPIC CONVERSION CREATININE S/P/B 0.9 (0.5-0.9) MG/DL [facility] TO EPIC CONVERSION SODIUM S/P/B 137 (136-145) MMOL/L [facility] TO EP[facility] CONVERSION POTASSIUM S/P/B 3.8 (3.5-5.1) MMOL/L [facility] TO EPIC CONVERSION CHLORIDE S/P/B 100 (98-107) MMOL/L [facility] TO EPIC CONVERSION TCO2 25.7 (22-29) MMOL/L [facility] TO EP[facility] CONVERSION CALCIUM S/P/B 9.8 (8.8-10.2) MG/DL [facility] TO EPIC CONVERSION BILIRUBIN TOTAL S/P/B 0.3 (0.0-1.0) MG/DL [facility] TO EPIC CONVERSION TOTAL PROTEIN S/P/B 7.5 (6.4-8.3) G/DL [facility] TO EPIC CONVERSION ALBUMIN S/P/B 4.6 (3.4-4.8) G/DL [facility] TO EPIC CONVERSION AST 30 (0-32) UNITS/L [facility] TO EP[facility] CONVERSION ALT 44(H) (0-31) UNITS/L [facility] TO EPIC CONVERSION ALKALINE PHOSPHATASE S/P/B 65 (35-104) UNITS/L [facility] TO EPIC CONVERSION ANION GAP 11.3 (0-24) MMOL/L [facility] TO EPIC CONVERSION BUN CREATININE RATIO 17.8 (6-26) [facility] TO EPIC CONVERSION OSMOLALITY (CALC) 275 (261-280) MOSM/KG [facility] TO EPIC CONVERSION A/G RATIO 1.6 (1.1-1.9) RATIO [facility] TO EPIC CONVERSION GFR ESTIMATE >60 (>60) ML/MIN/1.7 3 M2 [facility] TO EPIC CONVERSION EGFR AFR. AMER. >60 (>60) ML/MIN/1.7 3 M2 [facility] TO EPIC CONVERSION 12/09/2009 1:27 PM CDT 12/09/2009 1:27 PM CDT Narrative [facility] TO EP[facility] CONVERSION - 12/09/2009 1:27 PM CDT [Task Forwarded to kaykay] Increase the Simvastatin to 40mg qd. She may not have picked up the new Rx as yet so you can increase it at the pharmacy. ?[facility] in [place]. us Michael Mercado MD LABORATORY Final Res ult Performing Organization Address City/[facility]/ZIP Co de Phone Number [facility] TO EPIC CONVERSION * (ABNORMAL) LIPID PANEL (12/09/2009 1:27 PM CDT) Pathologist [facility] CHOLESTEROL 254(H) (0-200) MG/DL [facility] TO EPIC CONVERSION TRIGLYCERIDES 125 (0-150) MG/DL [facility] TO EPIC CONVERSION HDL 70 (>40) MG/DL [facility] TO EPIC CONVERSION LDL (CALCULATED) 159(H) (<130) MG/DL [facility] TO EPIC CONVERSION Comment: AN LDL OF <100 IS OPTIMAL, ELEVATED IS DEFINED >130 BY CURRENT GUIDELINES, LDL GOALS ARE DEPENDENT UPON OTHER RISK FACTORS 12/09/2009 1:27 PM CDT 12/09/2009 1:27 PM CDT Narrative [facility] TO EPIC CONVERSION - 12/09/2009 1:27 PM CDT [Task Forwarded to kaykay] Increase the Simvastatin to 40mg qd. She may not have picked up the new Rx as yet so you can increase it at the pharmacy. ?[facility] [place]. us Michael Mercado MD LABORATORY Final Res ult Performing Organization Address City/[facility]/ZIP Co de Phone Number [facility] TO EPIC CONVERSION documented in this encounter Visit Diagnoses Not on filedocumented in this encounter
--- OUTSIDE RECORDS SUMMARY | 2024-06-12 07:31 | XMS_ITS | Encounter Summary ---
Author Organization [facility] Address [address] [place] [address]. [place] [address] [place] [address] Care Team Providers Care Asphalt Mixer Name Role Phone Unavailable Primary Care Provider Unavailabl e Encounter Details Date Type Department Care Team (Late st Contact Info) Description 12/09/2009 Abstract [facility] [address] [place] [address] Michael Mercado MD [address] [facility] [address] [place] [address] Social History Tobacco Use Types [...]
--- OUTSIDE RECORDS SUMMARY | 2024-06-12 07:31 | XMS_ITS | Encounter Summary ---
Author Organization [facility] Address [address] [place] [address]. [place] [address] [place] [address] Care Team Providers Care Route Relief Driver Name Role Phone Unavailable Primary Care Provider Unavailabl e Encounter Details Date Type Department Care Team (Late st Contact Info) Description 12/10/2009 Abstract [facility] Michael Bone MD [address] [address] Social History Tobacco Use Types Packs/Day Years Used Date Smoking Tobacco: Never Assessed Comments Unknown Sex and Gender Information Value Date Recorded Sex Assigned at Not on file Legal Sex Female 8:18 PM CDT Gender Identity Not on file Sexual Orientation Not on file documented as of this encounter Progress Notes * Michael Mercado MD - 12/10/2009 12:00 AM CDT Patient Name: LISSET RAM : 1950 .0 Date: 12/10/2009 Telephone conversation with patient regarding lab results from 12-09-09. Per Dr. Mercado, cholesterol / LDL too high so patient to increase Simvastatin to 40mg daily with repeat labs in 2 months. Order for repeat labs was sent to patient. Dictated By: Keyona Purvis RUG LAYER Document approved by: KEYONA Date: 12/10/2009 10:33 ERNMAKER GRADER documented in this encounter Plan of Treatment Not on file documented as of this encounter Visit Diagnoses Not on filedocumented in this encounter
--- OUTSIDE RECORDS SUMMARY | 2024-06-12 07:31 | XMS_ITS | Encounter Summary ---
Author Organization [facility] Address [address] [place] [address]. [place], [place] [address] [place] [address] Care Team Providers Care Minister Name Role Phone Unavailable Primary Care Provider Unavailabl e Encounter Details Date Type Department Care Team (Late st Contact Info) Description 12/07/2011 Abstract [facility] Conversion Sam Guerrero MD [id number] [place] [address] Social History Tobacco Use Types Packs/Day Years Used Date Smoking Tobacco: Never Assessed Comments Unknown Sex and Gender Information Value Date Recorded Sex Assigned at Not on file Legal Sex Female 8:18 PM CDT Gender Identity Not on file Sexual Orientation Not on file documented as of this encounter Last Filed Vital Signs Vital Sign Reading Time Taken Comments Blood Pressure 124/78 12/07/2011 2:15 PM CDT Pulse 106 12/07/2011 2:15 PM CDT Temperature - - Respiratory Rate - - Oxygen Saturation - - Inhaled Oxygen Concentration - - Weight 61.2 kg (135 lb) 12/07/2011 2:15 PM CDT Height 158.8 cm (5' 2.5 ) 12/07/2011 2:15 PM CDT Body Mass Index 24.3 12/07/2011 2:15 PM CDT documented in this encounter Progress Notes * Sam Guerrero MD - 12/07/2011 12:00 AM CDT CHIEF COMPLAINT The Chief Complaint is: Check up. HISTORY OF PRESENT ILLNESS Isela Kendall is a 61 year old female. Overall she's doing well and tab all her meds well, due for rout labs; she has noticed an intentiontremor w fine mvts, does have fh of such, no resting tremor or concerning neurol sx; she also gets palpitations at times, feels like heart is racing but no cp or sob; sx are not exertional; she did have some jaw tightness once but there was no exertinoal sx or assoc cp or sob. CURRENT MEDICATION ? Estrace 1 MG TABS, [...] days, 3 refills PAST MEDICAL/SURGICAL HISTORY Reported: Surgical / Procedural: Surgical / procedural history -----Reviewed 12/08 T&A RSO Hysterectomy, LSO & Incidental Appendectomy Colonoscopy (next 2013) Shawna. Diagnoses: Hypertension. Irritable bowel syndrome. Hyperlipidemia. 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 Surgical: Hysterectomy SOCIAL HISTORY Behavioral: Not a current smoker. Alcohol: Alcohol use Social. ALLERGIES ? Penicillins Reaction: ., . FAMILY HISTORY Pulmonary disease Fa Asthma Si COPD Cancer PatGF Leukemia Fa Pancreas Bro, Si Skin Heart disease Mo, Bro, WI's Si CAD Essential hypertension Mo Hemochromatosis So x2 Diabetes mellitus So Parkinson's disease Fa PHYSICAL FINDINGS ? Vitals taken 12/07/2011 02:15 pm BP-Sitting L 124/78 mmHg BP Cuff Size Regular Pulse Rate-Sitting 106 bpm Respiration Rate 14 per min Temp-Oral 98.1 F Height 62.5 in Weight 135 lbs Body Mass Index 24.3 kg/m2 Body Surface Area 1.63 m2 Oxygen Saturation 99 % General Appearance: [...] ?? Normal. Gait And Stance: ?? Normal. Mild intention essential tremor. ASSESSMENT ? Benign essential hypertension ? Hyperlipidemia Essential tremor palpitations. THERAPY ? Continue current medication. PLAN ? Return to the clinic if condition worsens or new symptoms arise Udpate labs and holter; if holter benign then consider trial of inderal as it may help the ET and the palpitations. Sam Guerrero MD Electronically signed by: Kevin Guerrero MD Date: 12/07/2011 20:26 ARCH AND DEVELOPMENT MANAGER documented in this encounter Plan of Treatment Not on file documented as of this encounter Procedures Procedure Name Priority Date/Time Associated Diagnosis Comments TSH W/REFLEX Routine 12/07/2011 2:54 PM CDT COMPREHENSIVE METABOLIC PANEL Routine 12/07/2011 2:54 PM CDT LIPID PANEL Routine 12/07/2011 2:54 PM CDT CBC W/DIFF AUTOMATED Routine 12/07/2011 2:54 PM CDT documented in this encounter Results * TSH W/REFLEX (12/07/2011 2:54 PM CDT) TSH ULTRASENSITIVE 1.48 0.55 - 4.78 uIU/ML [facility] TO EPIC CONVERSION Comment:FREE T4 NOT INDICATE D 12/07/2011 2:54 PM CDT 12/07/2011 2:54 PM CDT Narrative [facility] TO EP[facility] CONVERSION - 12/07/2011 2:54 PM CDT [AUTO]: This test was reviewed. Sam Guerrero MD LABORATORY Final Result [facility] TO EPIC CONVERSION * (ABNORMAL) COMPREHENSIVE METABOLIC PANEL (12/07/2011 2:54 PM CDT) Pathologist [facility] GLUCOSE 79 70 - 99 MG/DL [facility] TO EPIC CONVERSION BUN 19 6 - 20 MG/DL [facility] TO EPIC CONVERSION CREATININE S/P/B 1.0(H) 0.5 - 0.9 MG/DL [facility] TO EPIC CONVERSION SODIUM S/P/B 137 136 - 145 MMOL/L [facility] TO EPIC CONVERSION POTASSIUM S/P/B 4.7 3.5 - 5.1 MMOL/L [facility] TO EPIC CONVERSION CHLORIDE S/P/B 102 98 - 107 MMOL/L [facility] TO EPIC CONVERSION TCO2 25.3 22 - 29 MMOL/L [facility] TO EPIC CONVERSION CALCIUM S/P/B 9.9 8.8 - 10.2 MG/DL [facility] TO EPIC CONVERSION BILIRUBIN TOTAL S/P/B 0.2 0.0 - 1.0 MG/DL [facility] TO EPIC CONVERSION TOTAL PROTEIN S/P/B 6.6 6.4 - 8.3 G/DL [facility] TO EPIC CONVERSION ALBUMIN S/P/B 4.3 3.4 - 4.8 G/DL [facility] TO EPIC CONVERSION AST 18 0 - 32 UNITS/L [facility] TO EPIC CONVERSION ALT 25 0 - 31 UNITS/L [facility] TO EPIC CONVERSION ALKALINE PHOSPHATASE S/P/B 47 35 - 104 UNITS/L [facility] TO EPIC CONVERSION ANION GAP 9.7 0 - 24 MMOL/L [facility] TO EPIC CONVERSION BUN CREATININE RATIO 19.0 6 - 26 [facility] TO [facility] CONVERSION OSMOLALITY (CALC) 275 261 - 280 MOSM/KG [facility] TO EPIC CONVERSION A/G RATIO 1.9 1.1 - 1.9 RATIO [facility] TO EPIC CONVERSION EGFR NON-AFR. AMER. >60 >60 ML/MIN/1.7 3 M2 [facility] TO EPIC CONVERSION EGFR AFR. AMER. >60 >60 ML/MIN/1.7 3 M2 [facility] TO EPIC CONVERSION 12/07/2011 2:54 PM CDT 12/07/2011 2:54 PM CDT Narrative [facility] TO EPIC CONVERSION - 12/07/2011 2:54 PM CDT [AUTO]: This test was reviewed. Sam Guerrero MD LABORATORY Final Result [facility] TO EPIC CONVERSION * (ABNORMAL) CBC W/DIFF AUTOMATED (12/07/2011 2:54 PM CDT) WBC 10.5 4.8 - 10.8 K/UL [facility] TO EPIC CONVERSION RBC 4.06(L) 4.1 - 5.1 M/UL [facility] TO EPIC CONVERSION HGB 13.4 12.0 - 16.0 G/DL [facility] TO EPIC CONVERSION HCT 40.5 36 - 46 % [facility] T O EPIC CONVERSION MCV 99.8 80.0 - 100.0 FL [facility] TO EPIC CONVERSION MCH 33.0 26.0 - 34.0 PG [facility] TO EPIC CONVERSION MCHC 33.1 31.0 - 37.0 G/DL [facility] TO EPIC CONVERSION RDW 13.0 11.5 - 14.5 % [facility] TO EPIC CONVERSION PLT 455(H) 150 - 350 K/UL [facility] TO EPIC CONVERSION NEUTROPHILS % 58.4 50 - 70 % [facility] UP TO EPIC CONVERSION LYMPHOCYTES 23.7 18 - 42 % [facility] TO EPIC CONVERSION MONOCYTES 6.7 2.0 - 11.0 % [facility] TO EPIC CONVERSION EOSINOPHILS 10.8(H) 1.0 - 3.0 % [facility] TO EPIC CONVERSION BASOPHILS 0.4 0.0 - 1.0 % [facility] TO EPIC CONVERSION ABS. NEUTROPHILS 6.1 1.69 - 7.81 K/UL [facility] TO EPIC CONVERSION PLT MORPH. INCREASED [facility] TO [facility]IC CONVERSION RBC MORPHOLOGY NORMAL [facility] OUP TO EPIC CONVERSION 12/07/2011 2:54 PM CDT 12/07/2011 2:54 PM CDT Narrative [facility] TO EPIC CONVERSION - 12/07/2011 2:54 PM CDT [Task Note] plts always around this range looking back, plt morphs have been nl Sam Guerrero MD LABORATORY Final Result Performing Organization Address [facility] de Phone Number [facility] TO EPIC CONVERSION * (ABNORMAL) LIPID PANEL (12/07/2011 2:54 PM CDT) CHOLESTEROL 234(H) 0 - 200 MG/DL [facility] TO EPIC CONVERSION TRIGLYCERIDES 199(H) 0 - 150 MG/DL [facility] TO EPIC CONVERSION HDL 55 >40 MG/DL [facility] T O EPIC CONVERSION LDL (CALCULATED) 139(H) <130 MG/DL [facility] TO EPIC CONVERSION Comment: AN LDL OF <100 IS OPTIMAL, ELEVATED IS DEFINED >130 BY CURRENT GUIDELINES, LDL GOALS ARE DEPENDENT UPON OTHER RISK FACTORS 12/07/2011 2:54 PM CDT 12/07/2011 2:54 PM CDT Narrative [facility] TO EPIC CONVERSION - 12/07/2011 2:54 PM CDT [AUTO]: This test was reviewed. Sam Guerrero MD LABORATORY Final Result Performing Organization Address [facility] de Phone Number [facility] TO EPIC CONVERSION documented in this encounter Visit Diagnoses Not on filedocumented in this encounter
--- OUTSIDE RECORDS SUMMARY | 2024-06-12 07:31 | XMS_ITS | Encounter Summary ---
Author Organization [facility] [place] [facility] Address [address] [place] [address]. [place], [place] [address] [place] [address] Care Team Providers Care Plant Technician Name Role Phone Unavailable Primary Care Provider Unavailabl e Encounter Details Date Type Department Care Team (Late st Contact Info) Description 11/12/2010 Abstract [facility] Conversion Sam Guerrero MD [id number] [place] [address] Social History Tobacco Use Types Packs/Day Years Used Date Smoking Tobacco: Never Assessed Comments Unknown Sex and Gender Information Value Date Recorded Sex Assigned at Not on file Legal Sex Female 8:18 PM CDT Gender Identity Not on file Sexual Orientation Not on file documented as of this encounter Last Filed Vital Signs Vital Sign Reading Time Taken Comments Blood Pressure 118/72 11/12/2010 2:00 PM CDT Pulse 127 11/12/2010 2:00 PM CDT Temperature - - Respiratory Rate - - Oxygen Saturation - - Inhaled Oxygen Concentration - - Weight 57.6 kg (127 lb) 11/12/2010 2:00 PM CDT Height 158.8 cm (5' 2.5 ) 11/12/2010 2:00 PM CDT Body Mass Index 22.86 11/12/2010 2:00 PM CDT documented in this encounter Progress Notes * Sam Guerrero MD - 11/12/2010 12:00 AM CDT CHIEF COMPLAINT The Chief Complaint is: Check cholesterol and news med refilled. HISTORY OF PRESENT ILLNESS Isela Craig is a 60 year old female. 1) tab her statin well no AR, needs labs updated 2) tab her bp med well no cough, dizziness or AR 3) LUCA sx controlled on claritin 4) prozac helping w her mood, no si, wants to stay on current dose. CURRENT MEDICATION ? Claritin 10 MG TABS, Once a day, 30 days, 0 refills ? Estrace 1 MG TABS, Once a day, 30 days, 0 refills ? Lisinopril 10 MG TABS, Once a day, 90 days, 3 refills ? Multi-Vitamin TABS, Once a day, 30 days, 0 refills ? PROzac 40 MG CAPS, Once a day, 30 days, 9 refills ? Rolaids Extra Strength 675-135 MG CHEW, 2 once a day, 30 days, 0 refills ? Simvastatin 40 MG TABS, Once a day, 90 days, 3 refills, Dose was increased today PAST MEDICAL/SURGICAL HISTORY Reported History: Surgical / Procedural: Surgical / procedural history -----Reviewed and Unchanged 11/07 T&A RSO Hysterectomy, LSO & Incidental Appendectomy Colonoscopy (next 2013) Shawna. Diagnosis History: Hypertension. Irritable bowel syndrome. Hyperlipidemia. 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 SOCIAL HISTORY Behavioral: Not smoking. Alcohol: Alcohol use Social. ALLERGIES ? Penicillins Reaction: ., . FAMILY HISTORY Pulmonary disease Fa Asthma Si COPD Cancer PatGF Leukemia Fa Pancreas Bro, Si Skin Heart disease Mo, Bro, WI's Si CAD Essential hypertension Mo Hemochromatosis So x2 Diabetes mellitus So Parkinson's disease Fa REVIEW OF SYSTEMS Systemic: No systemic symptoms. Head: No head symptoms. Neck: No neck symptoms. Otolaryngeal: No otolaryngeal symptoms. Pulmonary: No pulmonary symptoms. Gastrointestinal: No gastrointestinal symptoms. Genitourinary: No genitourinary symptoms. Endocrine: No endocrine symptoms. Hematologic: No hematologic symptoms. Musculoskeletal: No localized soft tissue swelling in a lower extremity. Neurological: No neurological symptoms. Psychological: No psychological symptoms. Skin: No skin symptoms. PHYSICAL FINDINGS ? Vitals taken 11/12/2010 02:00 pm BP-Sitting 118/72 mmHg Pulse Rate-Sitting 127 bpm Respiration Rate 18 per min Temp-Oral 98.2 F Height 62.5 in Weight 127 lbs Body Mass Index 22.9 kg/m2 Body Surface Area 1.59 m2 Oxygen Saturation 97 % General Appearance: ?? Well developed. ?? Well nourished. ?? In no acute distress. Neck: Suppleness: ?? Neck demonstrated no decrease in suppleness. Trachea: ?? Not deviated. Thyroid: ?? Showed no abnormalities. Eyes: General/bilateral: Extraocular Movements: ?? Normal EOM. Sclera: ?? Showed no icterus. Ears: General/bilateral: External Auditory Canal: ?? External auditory meatus normal. Tympanic Membrane: ?? Normal. Nose: General/bilateral: Discharge: ?? No nasal discharge seen. Cavity: ?? Nasal turbinate not swollen. Sinus Tenderness: ?? No sinus tenderness. Pharynx: Oropharynx: ?? Normal. Lymph Nodes: ?? Normal. ?? Cervical lymph nodes were not enlarged. Lungs: ?? No wheezing was heard. ?? [...] ?? Normal. Gait And Stance: ?? Normal. No edema mood/affect wnl no ax lad. ASSESSMENT ? Rhinitis ? Benign essential hypertension ? Hyperlipidemia ? Depression THERAPY ? Continue current medication. PLAN ? HYPERLIPIDEMIA Simvastatin 40 MG TABS, Once a day, 90 days, 3 refills ? OTHER Lisinopril 10 MG TABS, Once a day, 90 days, 3 refills PROzac 40 MG CAPS, Once a day, 90 days, 3 refills ? A comprehensive metabolic panel ? A lipid profile ? Return to the clinic if condition worsens or new symptoms arise Sam Guerrero MD Electronically signed by: Kevin Guerrero MD Date: 11/12/2010 17:[address] REPAIRER documented in this encounter Plan of Treatment Not on file documented as of this encounter Visit Diagnoses Not on filedocumented in this encounter
--- OUTSIDE RECORDS SUMMARY | 2024-06-12 07:31 | XMS_ITS | Encounter Summary ---
Author Organization [facility] Address [address] [place] [address]. [place] [address] [place] [address] Care Team Providers Care Public Health Educator Name Role Phone Unavailable Primary Care Provider Unavailabl e Encounter Details Date Type Department Care Team (Late st Contact Info) Description 04/18/2009 Abstract [facility] CONVERSION [address] [place] [address] Michael Mercado MD [address] [place] [address] Social History Tobacco Use Types [...]
--- OUTSIDE RECORDS SUMMARY | 2024-06-12 07:32 | XMS_ITS | Encounter Summary ---
Author Organization [facility] Address [address] [place] [address]. [place] [address] [place] [address] Care Team Providers Care Silk Crepe Machine Operator Name Role Phone Unavailable Primary Care Provider Unavailabl e Encounter Details Date Type Department Care Team (Late st Contact Info) Description 08/22/2007 Abstract [facility] Michael Bone MD [address] [address] Social History Tobacco Use Types Packs/Day Years Used Date Smoking Tobacco: Never Assessed Comments Unknown Sex and Gender Information Value Date Recorded Sex Assigned at Not on file Legal Sex Female 8:18 PM CDT Gender Identity Not on file Sexual Orientation Not on file documented as of this encounter Progress Notes * Michael Mercado MD - 08/22/2007 12:00 AM CDT Date: 08/22/2007 Patient .0 Patient Name: LISSET RAM Patient : 1950 Patient was seen 08/14/07 by [facility] with sinusitis and was given Z-Fabian and Erma- D. Patient continuesto c/o bilateral ear congestion, throbbing pain to righ t ear. Sinus symptoms have resolved. Per RAL, patient is to use Levaquin 500mg daily x 10 days. Script transmitted to Jose Manuel Shanks. Whit Castillo Document approved by: WHIT CASTILLO Date: 08/22/2007 13:19 EAR LOGGING ENGINEER documented in this encounter Plan of Treatment Not on file documented as of this encounter Visit Diagnoses Not on filedocumented in this encounter
--- OUTSIDE RECORDS SUMMARY | 2024-06-12 07:32 | XMS_ITS | Encounter Summary ---
Author Organization [facility] Address [address] [place] [address]. [place] [address] [place] [address] Care Team Providers Care Subscription Crew Leader Name Role Phone Unavailable Primary Care Provider Unavailabl e Encounter Details Date Type Department Care Team (Late st Contact Info) Description 02/21/2008 Abstract [facility] Michael Bone MD [address] [address] Social History Tobacco Use Types Packs/Day Years Used Date Smoking Tobacco: Never Assessed Comments Unknown Sex and Gender Information Value Date Recorded Sex Assigned at Not on file Legal Sex Female 8:18 PM CDT Gender Identity Not on file Sexual Orientation Not on file documented as of this encounter Progress Notes * Michael Mercado MD - 02/21/2008 12:00 AM CDT Date: 02/21/2008 Name: LISSET RAM : 1950 Age: 57 Telephone conversation with patient regarding lab results from 02/19/08-per Dr. Mercado results oflipids good and to continue same med regime. Note entered by Felipe Irizarry RN Document approved by: FELIPE IRIZARRY Date: 02/21/2008 09:39 O MESSAGE ROUTER documented in this encounter Plan of Treatment Not on file documented as of this encounter Visit Diagnoses Not on filedocumented in this encounter
--- OUTSIDE RECORDS SUMMARY | 2024-06-12 07:32 | XMS_ITS | Encounter Summary ---
Author Organization [facility] Address [address] [place] [address]. [place], [place] [address] [place] [address] Care Team Providers Care Planogrammer Name Role Phone Unavailable Primary Care Provider Unavailabl e Encounter Details Date Type Department Care Team (Late st Contact Info) Description 02/19/2008 Abstract [facility] Conversion , Generic ConversionMD Social History Tobacco Use Types Packs/Day Years Used Date Smoking Tobacco: Never Assessed Comments Unknown Sex and Gender Information Value Date Recorded Sex Assigned at Not on file Legal Sex Female 8:18 PM CDT Gender Identity Not on file Sexual Orientation Not on file documented as of this encounter Last Filed Vital Signs Vital Sign Reading Time Taken Comments Blood Pressure 124/68 02/19/2008 1:00 PM CDT Pulse 99 02/19/2008 1:00 PM CDT Temperature - - Respiratory Rate - - Oxygen Saturation - - Inhaled Oxygen Concentration - - Weight 55.8 kg (123 lb) 02/19/2008 1:00 PM CDT Height 158.8 cm (5' 2.5 ) 02/19/2008 1:00 PM CDT Body Mass Index 22.14 02/19/2008 1:00 PM CDT documented in this encounter Progress Notes * Michael Ly MD - 02/19/2008 12:00 AM CDT CHIEF COMPLAINT The Chief Complaint is: 6 month eval: hyperlipidemia. HISTORY OF PRESENT ILLNESS LISSET RAM is a 57 year old female. ? General overall feeling ? No symptoms since last visit ?? No new symptoms CURRENT MEDICATION ? Fish Oil 500 MG CAPS, Once a day, 30 days, 0 refills ? Estrace 1 MG TABS, Once a day, 30 days, 0 refills ? Prozac 20 MG CAPS, Once a day, 30 days, 0 refills ? Osteo Bi-Flex Regular Strength 250-200 MG TABS, 2 once a day, 30 days, 0 refills ? Centrum TABS, Once a day, 30 days, 0 refills ? Aspirin 81 MG TABS, Once a day, 30 days, 0 refills ? Simvastatin 20 MG TABS, Once a day, 30 days, 0 refills ? Erma-D 12 Hour 60-120 MG TB12, Twice a Day, 30 days, 5 refills ALLERGIES ? Penicillins Reaction: ., . PHYSICAL FINDINGS ? Vitals taken 02/19/2008 01:00 PM Systolic BP-Sitting 124 mmHg 100 - 120 Diastolic BP-Sitting 68 mmHg 60 - 80 Pulse Rate-Sitting 99 bpm 60 - 100 Respiration Rate 18 per min 18 - 26 Temp-Tympanic 98 F 99 - 101 Height 62.5 in 59.843 - 68.11 Weight 123 lbs 98 - 183 Body Mass Index 22.1 Body Surface Area 1.56 Oxygen Saturation 100 % 93 - 100 General appearance: ?? [...] ?? Spleen was not enlarged. ASSESSMENT ? Hyperlipidemia THERAPY ? Continue current medication. PLAN ? OTHER Simvastatin 20 MG TABS, Once a day, 30 days, 5 refills ? A lipid profile ? ALT (SGPT) level ? AST (SGOT) level ? Return to the clinic if condition worsens or new symptoms arise ? Follow-up visit in 6 months She'll be advised of any abnormal labs when they're made available. She's to report any problems. MICHAEL LY Entered data sealed by: DR. LY Date: 02/19/2008 13:39 TRON BEAM PHOTO MASK TECHNICIAN documented in this encounter Plan of Treatment Not on file documented as of this encounter Procedures Procedure Name Priority Date/Time Associated Diagnosis Comments AST/SGOT Routine 02/19/2008 2:05 PM CDT LIPID PANEL Routine 02/19/2008 2:05 PM CDT ALT/SGPT Routine 02/19/2008 2:05 PM CDT documented in this encounter Results * (ABNORMAL) LIPID PANEL (02/19/2008 2:05 PM CDT) Pathologist [facility] CHOLESTEROL 202(H) (0-200) MG/DL [facility] TO EPIC CONVERSION TRIGLYCERIDES 150 (0-150) MG/DL [facility] TO EPIC CONVERSION HDL 64 (>40) MG/DL [facility] TO EPIC CONVERSION LDL (CALCULATED) 108 (<130) MG/DL [facility] TO EPIC CONVERSION Comment: AN LDL OF <100 IS OPTIMAL, ELEVATED IS DEFINED >130 BY CURRENT GUIDELINES, LDL GOALS ARE DEPENDENT UPON OTHER RISK FACTORS 02/19/2008 2:05 PM CDT 02/19/2008 2:05 PM CDT Narrative [facility] TO EPIC CONVERSION - 02/19/2008 2:05 PM CDT [Task Forwarded to kaykay] Notify patient of the results. us Michael Ly MD LABORATORY Final Res ult Performing Organization Address [facility] Co de Phone Number [facility] TO EPIC CONVERSION * AST/SGOT (02/19/2008 2:05 PM CDT) AST 19 (0-32) UNITS/L [facility] TO EPIC CONVERSION 02/19/2008 2:05 PM CDT 02/19/2008 2:05 PM CDT Narrative [facility] TO EPIC CONVERSION - 02/19/2008 2:05 PM CDT [Task Forwarded to kaykay] Notify patient of the results. us Michael Ly MD LABORATORY Final Res ult Performing Organization Address [facility] de Phone Number [facility] TO EPIC CONVERSION * ALT/SGPT (02/19/2008 2:05 PM CDT) ALT 20 (0-31) UNITS/L [facility] TO EPIC CONVERSION 02/19/2008 2:05 PM CDT 02/19/2008 2:05 PM CDT Narrative [facility] TO EPIC CONVERSION - 02/19/2008 2:05 PM CDT [Task Forwarded to kaykay] Notify patient of the results. us Michael Ly MD LABORATORY Final Res ult Performing Organization Address [facility] Co de Phone Number [facility] TO EPIC CONVERSION documented in this encounter Visit Diagnoses Not on filedocumented in this encounter
--- OUTSIDE RECORDS SUMMARY | 2024-06-12 07:32 | XMS_ITS | Encounter Summary ---
Author Organization [facility] Address [address] [place] [address]. [place] [address] [place] [address] Care Team Providers Care Reimbursement Representative Name Role Phone Unavailable Primary Care Provider Unavailabl e Encounter Details Date Type Department Care Team (Late st Contact Info) Description 10/09/2008 Abstract [facility] Michael Bone MD [address] [phone] Social History Tobacco Use Types Packs/Day Years Used Date Smoking Tobacco: Never Assessed Comments Unknown Sex and Gender Information Value Date Recorded Sex Assigned at Not on file Legal Sex Female 8:18 PM CDT Gender Identity Not on file Sexual Orientation Not on file documented as of this encounter Last Filed Vital Signs Vital Sign Reading Time Taken Comments Blood Pressure 138/80 10/09/2008 2:00 PM CDT Pulse 90 10/09/2008 2:00 PM CDT Temperature - - Respiratory Rate - - Oxygen Saturation - - Inhaled Oxygen Concentration - - Weight 55.3 kg (122 lb) 10/09/2008 2:00 PM CDT Height 158.8 cm (5' 2.5 ) 10/09/2008 2:00 PM CDT Body Mass Index 21.96 10/09/2008 2:00 PM CDT documented in this encounter Progress Notes * Michael Mercado MD - 10/09/2008 12:00 AM CDT CHIEF COMPLAINT The Chief Complaint is: Check up, no complaints, needs lab work. HISTORY OF PRESENT ILLNESS LISSET RAM is a 58 year old female. ? General overall feeling ? No symptoms since last visit ?? No systemic symptoms ?? No new symptoms CURRENT MEDICATION ? [...] 30 days, 0 refills ? Vitamin A 56961 UNIT TABS, Once a day, 30 days, 0 refills ? Erma-D 12 Hour 60-120 MG TB12, Twice a Day, 30 days, 5 refills PAST MEDICAL/SURGICAL HISTORY Reported History: No recent change in medical history -----Reviewed and Unchanged . Surgical / procedural: Surgical / procedural history -----Reviewed and Unchanged T&A RSO Hysterectomy, LSO & Incidental Appendectomy Colonoscopy (next 2009) Shawna. Diagnosis History: Irritable bowel syndrome. Hyperlipidemia. Tuberculosis tests +ve Therapeutic History: Hysterectomy SOCIAL HISTORY Social history unchanged -----Reviewed and Unchanged . Behavioral history: Not smoking. Alcohol: Alcohol use Social. ALLERGIES ? Penicillins Reaction: ., . FAMILY HISTORY Family history unchanged -----Reviewed and Unchanged Pulmonary disease Fa Asthma Cancer PatGF Leukemia Fa Pancreas Heart disease Mo [place] Essential hypertension [place] Hemochromatosis So x2 Diabetes mellitus So Parkinson's disease Fa REVIEW OF SYSTEMS Systemic symptoms: No recent weight change. Head symptoms: No headache. Eye symptoms: No eye symptoms. Otolaryngeal symptoms: No bilateral earache. No tinnitus, no nasal discharge, no epistaxis, and no sore throat. Cardiovascular symptoms: No chest pain or discomfort and chest pain not starting with exertion. Pulmonary symptoms: No dyspnea, no paroxysmal nocturnal dyspnea, not sleeping upright or with extrapillows, and no cough. Gastrointestinal symptoms: Normal appetite, no dysphagia, no heartburn, no nausea, no vomiting, no abdominal pain, no diarrhea, and no constipation. Genitourinary symptoms: No hematuria and no nocturia. No urinary urgency and no urinary incontinence. No dysuria. Musculoskeletal symptoms: No myalgias. No arthralgias, no soft tissue swelling, and no localized joint swelling. Neurological symptoms: No dizziness, no convulsions, no fainting, no limb weakness, no paralysis, and no transient involuntary movements. No tingling and denied anesthesia. PHYSICAL FINDINGS ? Vitals taken 10/09/2008 02:00 PM Systolic BP-Sitting 138 mmHg 100 - 120 Diastolic BP-Sitting 80 mmHg 60 - 80 Pulse Rate-Sitting 90 bpm 60 - 100 Respiration Rate 17 per min 18 - 26 Temp-Tympanic 97.1 F 99 - 101 Height 62.5 in 59.843 - 68.11 Weight 122 lbs 98 - 183 Body Mass Index 22.0 Body Surface Area 1.56 Oxygen Saturation 99 % 93 - 100 General appearance: ?? Oriented to time, place, and person. [...] Splenic Findings: ?? Spleen was not enlarged. Musculoskeletal system: General/bilateral: ?? Musculoskeletal system: normal. ?? Normal movement of all extremities. Neurological: Cranial Nerves: ?? Normal 2-12 intact. Gait And Stance: ?? Normal. ASSESSMENT ? Irritable bowel syndrome ? Hyperlipidemia THERAPY ? Continue current medication. PLAN ? OTHER Simvastatin 20 MG TABS, Once a day, 30 days, 11 refills Erma-D 12 Hour 60-120 MG TB12, Twice a Day, 30 days, 11 refills Hyoscyamine Sulfate 0.125 MG SUBL, As directed, 30 days, 2 refills, 1 q4-6h prn ? CBC ? A comprehensive metabolic panel ? A lipid profile ? Return to the clinic if condition worsens or new symptoms arise ? Follow-up visit in 1 year She'll be advised of any abnormal labs when they're made available. She's to report any problems. MICHAEL MERCADO Entered data sealed by: DR. MERCADO Date: 10/09/2008 14:38 STOCK PRODUCER documented in this encounter Plan of Treatment Not on file documented as of this encounter Visit Diagnoses Not on filedocumented in this encounter
--- OUTSIDE RECORDS SUMMARY | 2024-06-12 07:32 | XMS_ITS | Encounter Summary ---
Author Organization [facility] Address [address] [place] [address]. [place], [place] [address] [place] [address] Care Team Providers Care Nitrator Operator Name Role Phone Unavailable Primary Care Provider Unavailabl e Encounter Details Date Type Department Care Team (Late st Contact Info) Description 09/26/2007 Abstract [facility] Michael Bone MD [address] [phone] Social History Tobacco Use Types Packs/Day Years Used Date Smoking Tobacco: Never Assessed Comments Unknown Sex and Gender Information Value Date Recorded Sex Assigned at Not on file Legal Sex Female 8:18 PM CDT Gender Identity Not on file Sexual Orientation Not on file documented as of this encounter Progress Notes * Michael Mercado MD - 09/26/2007 12:00 AM CDT Date: 09/26/2007 Name: LISSET RAM : 1950 Age: 57 Telephone conversation with patient regarding lab results from 09/11/07-per Dr. Mercado liver function WNL. Note entered by Felipe Irizarry, RN Document approved by: FELIPE IRIZARRY Date: 09/26/2007 09:09 CLOCK REPAIRER documented in this encounter Plan of Treatment Not on file documented as of this encounter Visit Diagnoses Not on filedocumented in this encounter
--- OUTSIDE RECORDS SUMMARY | 2024-06-12 07:32 | XMS_ITS | Encounter Summary ---
Author Organization [facility] Address [address] [place] [address]. [place] [id number] [place] [address] Care Team Providers Care Padder Cushion Name Role Phone Unavailable Primary Care Provider Unavailabl e Encounter Details Date Type Department Care Team (Late st Contact Info) Description 09/11/2007 Abstract [facility] Conversion Md, Generic Conversion, [...]
--- OUTSIDE RECORDS SUMMARY | 2024-06-12 07:32 | XMS_ITS | Encounter Summary ---
Author Organization [facility] Address [address] [place] [address]. [place] [id number] [place] [address] Care Team Providers Care Inspector Cold Working Name Role Phone Unavailable Primary Care Provider Unavailabl e Encounter Details Date Type Department Care Team (Late st Contact Info) Description 02/19/2008 Abstract [facility] Conversion Md, Generic Conversion, [...]
--- OUTSIDE RECORDS SUMMARY | 2024-06-12 07:32 | XMS_ITS | Encounter Summary ---
Author Organization [facility] Address [address] [place] [address]. [place], [place] [id number] [place] [address] Care Team Providers Care Tunneling Machine Operator Name Role Phone Unavailable Primary Care Provider Unavailabl e Encounter Details Date Type Department Care Team (Late st Contact Info) Description 04/15/2008 Abstract [facility] Conversion Md, Generic Conversion, [...] Sign Reading Time Taken Comments Blood Pressure 124/70 04/15/2008 9:15 AM TAX COMMISSIONER Pulse 72 04/15/2008 9:15 AM TAX COMMISSIONER Temperature - - Respiratory Rate - - Oxygen Saturation - - Inhaled Oxygen Concentration - - Weight 57.6 kg (127 lb) 04/15/2008 9:15 AM TAX COMMISSIONER Height 158.8 cm (5' 2.5 ) 04/15/2008 9:15 AM TAX COMMISSIONER Body Mass Index 22.86 04/15/2008 9:15 AM TAX COMMISSIONER documented in this encounter Progress Notes * Michael Ly MD - 04/15/2008 12:00 AM CST CHIEF COMPLAINT The Chief Complaint is: Employment physical. HISTORY OF PRESENT ILLNESS LISSET RAM is a 57 year old female. ? 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 She felt well otherwise and had no other complaints ? General overall feeling ? No symptoms [...] Twice a Day, 30 days, 5 refills ? Ocuvite TABS, Once a day, 30 days, 0 refills ? Vitamin A 10689 UNIT TABS, Once a day, 30 days, 0 refills ? Simvastatin 20 MG TABS, Once a day, 30 days, 5 refills ALLERGIES ? Penicillins Reaction: ., . PHYSICAL FINDINGS ? Vitals taken 04/15/2008 09:15 AM Systolic BP-Sitting 124 mmHg 100 - 120 Diastolic BP-Sitting 70 mmHg 60 - 80 Pulse Rate-Sitting 72 bpm 60 - 100 Respiration Rate 18 per min 18 - 26 Temp-Tympanic 97.6 F 99 - 101 Height 62.5 in 59.843 - 68.11 Weight 127 lbs 98 - 183 Body Mass Index 22.9 Body Surface Area 1.59 Oxygen Saturation 100 % 93 - 100 [...] Spleen was not enlarged. ASSESSMENT ? Hyperlipidemia ? Depression THERAPY ? Continue current medication. PLAN ? Return to the clinic if condition worsens or new symptoms arise ? Follow-up visit in 9 months Her form was completed. She tests +ve for TB and had a CXR which was normal. She was given a copy for the form. She's to report any problems. MICHAEL LY Entered data sealed by: DR. LY Date: 04/15/2008 09:37 COMMISSIONER documented in this encounter Plan of Treatment Not on file documented as of this encounter Visit Diagnoses Not on filedocumented in this encounter
--- OUTSIDE RECORDS SUMMARY | 2024-06-12 07:32 | XMS_ITS | Encounter Summary ---
Author Organization [facility] Address [address] [place] [address]. [place] [address] [place] [address] Care Team Providers Care Ict Sales Representative Name Role Phone Unavailable Primary Care Provider Unavailabl e Encounter Details Date Type Department Care Team (Late st Contact Info) Description 07/29/2008 Abstract [facility] [address] [place] [address] Vinnie Dennis MD [address] [place] [address] Social History Tobacco Use Types Packs/Day Years [...]
--- OUTSIDE RECORDS SUMMARY | 2024-06-12 07:32 | XMS_ITS | Encounter Summary ---
Author Organization [facility] Address [address] [place] [address]. [place], [place] [address] [place] [address] Care Team Providers Care Management Planner Name Role Phone Unavailable Primary Care Provider Unavailabl e Encounter Details Date Type Department Care Team (Late st Contact Info) Description 02/20/2008 Abstract [facility] Michael Bone MD [address] [phone] Social History Tobacco Use Types Packs/Day Years Used Date Smoking Tobacco: Never Assessed Comments Unknown Sex and Gender Information Value Date Recorded Sex Assigned at Not on file Legal Sex Female 8:18 PM CDT Gender Identity Not on file Sexual Orientation Not on file documented as of this encounter Progress Notes * Michael Mercado MD - 02/20/2008 12:00 AM CDT Date: 02/20/2008 Name: LISSET RAM : 1950 Age: 57 Message left for patient to call office regarding lab results from 02/19/08. Note entered by Felipe Irizarry RN Document approved by: FELIPE IRIZARRY Date: 02/20/2008 11:28 US DANCER documented in this encounter Plan of Treatment Not on file documented as of this encounter Visit Diagnoses Not on filedocumented in this encounter
--- OUTSIDE RECORDS SUMMARY | 2024-06-12 07:32 | XMS_ITS | Encounter Summary ---
Author Organization [facility] Address [address] [place] [address]. [place] [address] [place] [address] Care Team Providers Care Filter Press Tender Name Role Phone Unavailable Primary Care Provider Unavailabl e Encounter Details Date Type Department Care Team (Late st Contact Info) Description 02/19/2008 Abstract [facility] [address] [place] [address] Michael Mercado MD [address] [facility] [address] [place] [address] Social History Tobacco Use Types [...]
--- OUTSIDE RECORDS SUMMARY | 2024-06-12 07:33 | XMS_ITS | Encounter Summary ---
Author Organization [facility] Address [address] [place] [address]. [place], [place] [address] [place] [address] Care Team Providers Care Case Hardener Name Role Phone Unavailable Primary Care Provider Unavailabl e Encounter Details Date Type Department Care Team (Late st Contact Info) Description 07/31/2007 Abstract [facility] Conversion Md, Generic Conversion, [...] Sign Reading Time Taken Comments Blood Pressure 124/74 07/31/2007 1:15 PM BILLING CONTROL CLERK Pulse 104 07/31/2007 1:15 PM BILLING CONTROL CLERK Temperature - - Respiratory Rate - - Oxygen Saturation - - Inhaled Oxygen Concentration - - Weight 57.2 kg (126 lb) 07/31/2007 1:15 PM BILLING CONTROL CLERK Height 158.8 cm (5' 2.5 ) 07/31/2007 1:15 PM BILLING CONTROL CLERK Body Mass Index 22.68 07/31/2007 1:15 PM BILLING CONTROL CLERK documented in this encounter Progress Notes * Michael Mercado MD - 07/31/2007 12:00 AM CST CHIEF COMPLAINT The Chief Complaint is: Annual check-up, fatigue, weight gain, abdominal pain, constipation. HISTORY OF PRESENT ILLNESS LISSET RAM is a 57 year old female. Patient presents to the office for a general C/U. Her only complaint is LUQ pain. It's been presentfor the last 2 months. She states it's like her IBS pain but not quite. The location is different. She has problems with constipation and that is unusual. She had a colonoscopy in [place] 3 years agoand isn't due for one for 2 years. She's not passing any blood or mucus. She's not losing weight. Her appetite remains good. She's had no N/V and no complaints. CURRENT MEDICATION ? Estrace 2 MG TABS, qd 30 days, 0 refills ? Claritin-D 24 Hour 10-240 MG TB24, qd 30 days, 0 refills, prn ? Centrum TABS, qd 30 days, 0 refills ? Osteo Bi-Flex Regular Strength 250-200 MG TABS, 2qd 30 days, 0 refills ? Fish Oil 500 MG CAPS, qd 30 days, 0 refills PAST MEDICAL/SURGICAL HISTORY Reported History: Surgical / procedural: Surgical / procedural history -----T&A RSO Hysterectomy, LSO & Incidental Appendectomy Colonoscopy Lasik. Diagnosis History: Irritable bowel syndrome. Hyperlipidemia. Tuberculosis tests +ve Therapeutic History: Hysterectomy SOCIAL HISTORY Behavioral history: Not smoking. Alcohol: Alcohol use Social. ALLERGIES ? Penicillins Reaction: ., . Confirmed: 07/31/2007 FAMILY HISTORY Pulmonary disease Fa Asthma Cancer PatGF Leukemia Fa Pancreas Heart disease Mo [place] Essential hypertension [place] Hemochromatosis So x2 Diabetes [...] starting with exertion. Pulmonary symptoms: No dyspnea, not sleeping upright or with extra pillows, and no cough. Gastrointestinal symptoms: Normal appetite, no dysphagia, no heartburn, no nausea, and no vomiting. Genitourinary symptoms: No hematuria and no nocturia. No urinary urgency and no urinary incontinence. No dysuria. Musculoskeletal symptoms: No arthralgias, no soft tissue swelling, no localized joint swelling, andno myalgias. Neurological symptoms: No dizziness, no convulsions, no fainting, no limb weakness, no paralysis, and no transient involuntary movements. No tingling and denied anesthesia. PHYSICAL FINDINGS ? Vitals taken 07/31/2007 01:15 Systolic BP-Sitting 124 mmHg 100 - 120 Diastolic BP-Sitting 74 mmHg 60 - 80 Pulse Rate-Sitting 104 bpm 60 - 100 Respiration Rate 16 per min 18 - 26 Temp-Tympanic 97.9 F 99 - 101 Height 62.5 in 64.567 - 73.228 Weight 126 lbs 123 - 215 Body Mass Index 22.7 Body Surface Area 1.58 Oxygen Saturation 100 % 93 - 100 General appearance: ?? Oriented to time, place, and person. ?? Well developed. ?? Well nourished. ?? In no acute distress. Eyes: General/bilateral: Extraocular Movements: ?? ENT evaluation of ocular movements was normal. Pupils: ?? PERRLA. Sclera: ?? Normal. Ears: General/bilateral: ?? Ears: normal. Tympanic Membrane: ?? Normal. Nose: ?? Normal. Pharynx: ?? Normal. Larynx: ?? Had no mucosal abnormalities. Neck: ?? Palpation revealed no abnormalities. ?? Demonstrated no decrease in suppleness. ?? Trachea showed no abnormalities. ?? Thyroid showed no abnormalities. ?? No cervical mass was seen. Chest: ? Chest: Clear to PA. Lungs: [...] 2-12 intact. Gait And Stance: ?? Normal. TESTS Imaging studies: Mammogram: A mammogram was performed. ASSESSMENT ? Irritable bowel syndrome ? Hyperlipidemia Abdominal Pain. THERAPY ? Go to the emergency room if condition worsens. PLAN ? Urinalysis ? CBC ? A comprehensive metabolic panel ? A lipid profile ? Serum TSH level and reflex T4 ? Return to the clinic if condition worsens or new symptoms arise ? Consultation with a specialist Dr. Rhodes 08 She'll be advised of any abnormal labs when they're made available. She's to report any problems. MICHAEL MERCADO Entered data sealed by: DR. MERCADO Date: 07/31/2007 19:33 ING CONTROL CLERK documented in this encounter Plan of Treatment Not on file documented as of this encounter Visit Diagnoses Not on filedocumented in this encounter
--- OUTSIDE RECORDS SUMMARY | 2024-06-12 07:33 | XMS_ITS | Encounter Summary ---
Author Organization [facility] Address [address] [place] [address]. [place] [id number] [place] [address] Care Team Providers Care Button Grader Name Role Phone Unavailable Primary Care Provider Unavailabl e Encounter Details Date Type Department Care Team (Late st Contact Info) Description 07/31/2007 Abstract [facility] Conversion Md, Generic Conversion, [...]
--- OUTSIDE RECORDS SUMMARY | 2024-06-12 07:33 | XMS_ITS | Encounter Summary ---
Author Organization [facility] Address [address] [place] [address]. [place] [address] [place] [address] Care Team Providers Care Sales Management Intern Name Role Phone Unavailable Primary Care Provider Unavailabl e Encounter Details Date Type Department Care Team (Late st Contact Info) Description 08/14/2007 Abstract [facility] [address] [place] [address] Rg Rhodes MD [address] [facility] [address] [place] [address] Social History Tobacco Use Types Packs/Day Years [...]
--- OUTSIDE RECORDS SUMMARY | 2024-06-12 07:33 | XMS_ITS | Encounter Summary ---
Author Organization [facility] Address [address] [place] [address]. [place] [id number] [place] [address] Care Team Providers Care Medicare Coordinator Name Role Phone Unavailable Primary Care Provider Unavailabl e Encounter Details Date Type Department Care Team (Late st Contact Info) Description 08/05/2007 Abstract [facility] Conversion [...]
--- OUTSIDE RECORDS SUMMARY | 2024-06-12 07:33 | XMS_ITS | Encounter Summary ---
Author Organization [facility] Address [address] [place] [address]. [address] [address] Care Team Providers Care Lei Seller Name Role Phone Unavailable Primary Care Provider Unavailabl e Encounter Details Date Type Department Care Team (Late st Contact Info) Description 08/14/2007 Abstract [facility] Conversion Md, Generic Conversion, Social [...] Sign Reading Time Taken Comments Blood Pressure 128/80 08/14/2007 3:45 PM CDT Pulse 92 08/14/2007 3:45 PM CDT Temperature - - Respiratory Rate - - Oxygen Saturation - - Inhaled Oxygen Concentration - - Weight 58.1 kg (128 lb) 08/14/2007 3:45 PM CDT Height 158.8 cm (5' 2.5 ) 08/14/2007 3:45 PM CDT Body Mass Index 23.04 08/14/2007 3:45 PM CDT documented in this encounter Progress Notes * Michael Ly MD - 08/14/2007 12:00 AM CDT CHIEF COMPLAINT The Chief Complaint is: F/u bloodwork, ear pain, sore throat, congestion. HISTORY OF PRESENT ILLNESS LISSET RAM is a 57 year old female. ? Headache ? Sinus pain ?? No facial pain ?? No pain in the cheek ? The ears feel full ? Nasal discharge Yellow discharge both nostrils, no blood, ? Postnasal drip ?Sneezing ? Sore throat on the right side only ? On the left side only ? Constantly ? Recurring daily ? Excruciating ? Triggered by swallowing ? Throat pain ? Constantly clearing throat ?? No hearing loss ?? No earache ?? No popping noise in the ears ? Cough Productive of some yellow non- blood tinged sputum,No pain with cough, No dyspnea ?? No wheezing ?? No infraorbital pain ?? , Eyes not watering ?? , and No swollen eyelids ?? No chest tightness orheavy pressure ?? No dysphagia ?? , No heartburn ?? , and No nausea ?? Sense of smell is normal ?? No taste disturbances CURRENT MEDICATION ? Estrace 2 MG TABS, qd 30 days, 0 refills ? Claritin-D 24 Hour 10-240 MG TB24, qd 30 days, 0 refills, prn ? Centrum TABS, qd 30 days, 0 refills ? Osteo Bi-Flex Regular Strength 250-200 MG TABS, 2qd 30 days, 0 refills ? Fish Oil 500 MG CAPS, qd 30 days, 0 refills ALLERGIES ? Penicillins Reaction: ., . Confirmed: 08/14/2007 PHYSICAL FINDINGS ? Vitals taken 08/14/2007 03:45 Systolic BP-Sitting 128 mmHg 100 - 120 Diastolic BP-Sitting 80 mmHg 60 - 80 Pulse Rate-Sitting 92 bpm 60 - 100 Respiration Rate 16 per min 46 - 54 Temp-Tympanic 98.5 F 99 - 101 Height 62.5 in 59.449 - 67.717 Weight 128 lbs 5.5 - 9.5 Body Mass Index 23.0 Body Surface Area 1.59 Oxygen Saturation 99 % 93 - 100 General appearance: ?? Normal. ?? Oriented to time, place, and person. ?? Well developed. ?? Well nourished. ?? In no acute distress. Head: ?? No evidence of a head injury. ?? Normocephalic. Eyes: General/bilateral: Extraocular Movements: ?? Normal. Pupils: ?? PERRLA. Anterior Orbit / Periorbit: ?? No periorbital swelling. External Eye: ?? Showed no abnormalities. ?? Conjunctiva exhibited no abnormalities. Ears: General/bilateral: External Auditory Canal: ?? External auditory meatus normal. Right ear: ?? Normal. Tympanic Membrane: ?? Normal. Left ear: ?? Normal. Tympanic Membrane: ?? Normal. Nose: ? Nasal discharge seen. ? Purulent nasal discharge. ? Nasal discharge both sides. ? Nasal mucosa abnormal. ? Nasal mucosa edematous. ? Nasal mucosa red. ? Nasal mucosa boggy. ?? No external nose deformities. ?? No external nose deformities. ?? Nasal mucosa not bleeding. ?? No sinus tenderness. Oral cavity: ?? Normal. Pharynx: Nasopharynx: ?? Normal. Oropharynx: ?? Normal. ?? Normal. ?? Soft palate was normal. ?? Tonsils showed no abnormalities. ??Anterior tonsillar pillar was normal. ?? Posterior pharyngeal wall was normal. Neck: ?? Appearance was normal. ?? No tenderness. ?? Demonstrated no decrease in suppleness. ?? Trachea showed no abnormalities. ?? Trachea was not deviated. ?? Thyroid showed no abnormalities. Lymph Nodes: ? Lymph nodes: ?? Normal. ?? Cervical lymph nodes were not enlarged. Lungs: ?? Respiratory excursion was not diminished. ?? Chest was normal to percussion. ?? Clear to auscultation. ?? Clear to auscultation. ?? No rhonchi were heard No crepitations were heard. Cardiovascular system: Heart Rate And Rhythm: ?? Normal. Heart Sounds: ?? Normal. Murmurs: ?? No murmurs were heard. Arterial Pulses: ?? Equal bilaterally and normal. Edema: ?? Not present. Abdomen: Auscultation: ?? Bowel sounds were normal. Palpation: ?? Abdominal palpation revealed no abnormalities. ?? No abdominal tenderness. ?? No masswas palpated in the abdomen. Hepatic Findings: ?? Liver was not enlarged. Splenic Findings: ?? Spleen was not enlarged and the kidneys were not palpable. ASSESSMENT ? Acute sinusitis ? Hyperlipidemia THERAPY ? Go to the emergency room if condition worsens. PLAN ? Return to the clinic if condition worsens or new symptoms arise Patient was advised to return to the office in 5-7 days if not improved and sooner if there's any acute need. I reviewed her labs and told her that her lipids needed to be addressed. We opted for Rx with Zocor. She'll get an AST/ALT in 1&3 months and lipids in 3 months. She's to RTC in 6 monthsWRT the lipids. She's to report any problems. RX ORDER ? Zithromax Z-Fabian 250 MG TABS, zpak 5 days, 0 refills ? Erma-D 12 Hour 60-120 MG TB12, bid 10 days, 0 refills ? Simvastatin 20 MG TABS, qd 30 days, 5 refills MICHAEL LY Entered data sealed by: DR. LY Date: 08/14/2007 16:22 ONAL FITNESS MANAGER documented in this encounter Plan of Treatment Not on file documented as of this encounter Visit Diagnoses Not on filedocumented in this encounter
--- OUTSIDE RECORDS SUMMARY | 2024-06-12 07:33 | XMS_ITS | Encounter Summary ---
Author Organization [facility] Address [address] [place] [address]. [place] [address] [place] [address] Care Team Providers Care Punch Press Feeder Name Role Phone Unavailable Primary Care Provider Unavailabl e Encounter Details Date Type Department Care Team (Late st Contact Info) Description 08/10/2007 Abstract [facility] [address] [place] [address] Michael Mercado MD [address] [facility] [address] [place] [address] Social History Tobacco Use Types [...]
--- OUTSIDE RECORDS SUMMARY | 2024-06-12 07:33 | XMS_ITS | Encounter Summary ---
Author Organization [facility] Address [address] [place] [address]. [place] [id number] [place] [address] Care Team Providers Care Drywall Taper Name Role Phone Unavailable Primary Care Provider Unavailabl e Encounter Details Date Type Department Care Team (Late st Contact Info) Description 08/10/2007 Abstract [facility] Conversion Md, Generic Conversion, Social History [...]
--- OUTSIDE RECORDS SUMMARY | 2024-06-12 07:33 | XMS_ITS | Encounter Summary ---
Author Organization [facility] Address [address] [place] [address]. [place] [address] [place] [address] Care Team Providers Care Director Oracle Name Role Phone Unavailable Primary Care Provider Unavailabl e Encounter Details Date Type Department Care Team (Late st Contact Info) Description 08/10/2007 Abstract [facility] [address] [place] [address] Rg Rhodes MD [address] [facility] [address] [place] [address] Social History Tobacco Use Types Packs/Day Years [...]
--- OUTSIDE RECORDS SUMMARY | 2024-06-12 07:33 | XMS_ITS | Encounter Summary ---
Author Organization [facility] Address [address] [place] [address]. [place] [id number] [place] [address] Care Team Providers Care Retrofit Installer Name Role Phone Unavailable Primary Care Provider Unavailabl e Encounter Details Date Type Department Care Team (Late st Contact Info) Description 08/02/2007 Abstract [facility] Conversion Md, Generic Conversion, [...]
--- OUTSIDE RECORDS SUMMARY | 2024-06-12 07:33 | XMS_ITS | Encounter Summary ---
Author Organization [facility] Address [address] [place] [address]. [place] [address] [place] [address] Care Team Providers Care Generator Technician Name Role Phone Unavailable Primary Care Provider Unavailabl e Encounter Details Date Type Department Care Team (Late st Contact Info) Description 09/02/2005 Abstract [facility] [[email or web address]] Michael Bone MD [address] [address] Social History Tobacco Use Types Packs/Day Years Used Date Smoking Tobacco: Never Assessed Comments Unknown Sex and Gender Information Value Date Recorded Sex Assigned at Not on file Legal Sex Female 8:18 PM CDT Gender Identity Not on file Sexual Orientation Not on file documented as of this encounter Progress Notes * Michael Mercado MD - 09/02/2005 12:00 AM CDT Date: 09/02/05 Patient .0 Patient Name: LISSET Shaw YO Patient : 54 Telephone conversation with patient re: CXR and DEXA results from08/31/05-per Dr. Mercado results WNL. Dictated by Yancy Irizarry RN T WORKER * Michael Mercado MD - 09/02/2005 12:00 AM CDT Date: 09/02/05 Patient .0 Patient Name: LISSET RAM Patient : 54 Message left for patient to call office regarding CXR results from 08/31/05. Dictated by Yancy Irizarry RN T WORKER documented in this encounter Plan of Treatment Not on file documented as of this encounter Visit Diagnoses Not on filedocumented in this encounter
--- OUTSIDE RECORDS SUMMARY | 2024-06-12 07:33 | XMS_ITS | Encounter Summary ---
Author Organization [facility] Address [address] [place] [address]. [place] [phone] [place] [address] Care Team Providers Care Under Baster Name Role Phone Unavailable Primary Care Provider Unavailabl e Encounter Details Date Type Department Care Team (Late st Contact Info) Description 08/31/2005 Abstract [facility] Conversion Md, Generic Conversion, Social History [...]
--- OUTSIDE RECORDS SUMMARY | 2024-06-12 07:33 | XMS_ITS | Encounter Summary ---
Author Organization [facility] Address [address] [place] [address]. [place] [address] [place] [address] Care Team Providers Care Toolmaker Helper Name Role Phone Unavailable Primary Care Provider Unavailabl e Encounter Details Date Type Department Care Team (Late st Contact Info) Description 08/02/2007 Abstract [facility] Michael Bone MD [address] [address] Social History Tobacco Use Types Packs/Day Years Used Date Smoking Tobacco: Never Assessed Comments Unknown Sex and Gender Information Value Date Recorded Sex Assigned at Not on file Legal Sex Female 8:18 PM CDT Gender Identity Not on file Sexual Orientation Not on file documented as of this encounter Progress Notes * Michael Mercado MD - 08/02/2007 12:00 AM CST Date: 08/02/2007 Name: LISSET RAM : 1950 Age: [address] Becerra request appointment set up with Patti Price for IBS for this date-patient notified. Note entered by Felipe Cantu RN Document approved by: FELIPE CANTU Date: 08/02/2007 11:47 R PIPE LAYER HELPER documented in this encounter Plan of Treatment Not on file documented as of this encounter Visit Diagnoses Not on filedocumented in this encounter
--- OUTSIDE RECORDS SUMMARY | 2024-06-12 07:33 | XMS_ITS | Encounter Summary ---
Author Organization [facility] Address [address] [place] [address]. [place] [address] [place] [address] Care Team Providers Care Compliance Engineer Products Name Role Phone Unavailable Primary Care Provider Unavailabl e Encounter Details Date Type Department Care Team (Late st Contact Info) Description 08/31/2005 Abstract [facility] [address] [place] [address] Michael Mercado MD [address] [facility] [address] [place] [address] Social History Tobacco Use Types [...]
--- OUTSIDE RECORDS SUMMARY | 2024-06-12 07:34 | XMS_ITS | Encounter Summary ---
Author Organization [facility] Address [address] [place] [address]. [place] [address] [place] [address] Care Team Providers Care Dialysis Biomed Technician Name Role Phone Unavailable Primary Care Provider Unavailabl e Encounter Details Date Type Department Care Team (Late st Contact Info) Description 08/19/[address] [facility] Michael Bone MD [address] [address] Social History Tobacco Use Types Packs/Day Years Used Date Smoking Tobacco: Never Assessed Comments Unknown Sex and Gender Information Value Date Recorded Sex Assigned at Not on file Legal Sex Female 8:18 PM CDT Gender Identity Not on file Sexual Orientation Not on file documented as of this encounter Progress Notes * Michael Mercado MD - 08/19/2005 12:00 AM CST 08/19/05 LISSET RAM : 54 HT: 62 ? WT: 114 lbs. BP: 132/84 RESP: 16 PULSE: 92 TEMP: 97.3 LMP: Hysterectomy 1980 Last Pap: 1999 Last Mammogram: 08/01 Pulse Ox: 99 ALLERGIES: PCN MEDICATIONS: Estrace 2 mg QD. Zelnorm 6 mg QD-BID. Claritin-D QD. SUBJECTIVE : The patient presented to the office for a comprehensive evaluation. She required renewal of her medication but otherwise she felt well and had no specific complaints. PAST MEDICAL HISTORY: She has irritable bowel syndrome and she tests positive for TB and has high cholesterol. PAST SURGICAL HISTORY : She underwent a hysterectomy and left salpingo oophorectomy, incidental appendectomy, then had a TSA and had a right salpingo oophorectomy, colonoscopy and lasix surgery to her right eye. FAMILY HISTORY : One son is diabetic. Mother had high blood pressure and myocardial infarction and peptic ulcer disease. Father had asthma, peptic ulcer disease and of CA of the pancrease. Paternal grandfather had leukemia. Father also had Parkinson s disease and mother had Alzheimers. FUNCTIONAL INQUIRY : The patient smokes a half pack per day, ingests ethanol socially, has an allergy to penicillin, and her current medication consisted of Estrace 2 mg daily, Zelnorm 5 mg BID. Head& Neck : The patient denied any headache, earache, ringing in the ears, blurred or double vision, runny or bloody nose, no sore throat. Respiratory : No cough or shortness of breath. CVS: No chest pain, chest pain with exertion, no dizziness, sanchez nting, blackout spells, PND, orthopnea or peripheral edema. GI : No problems swallowing. Appetite has been good. Weight is stable. No heartburn, nausea, vomiting, diarrhea, abdominal pain, constipation or hemorrhoids. : No dysuria, urgency, frequency, nocturia, hematuria or incontinence. RAMSES: No myalgia, arthralgia, joint swelling. CARBIDE TOOL DIE MAKER: The patient denied any syncope, tremulousness, seizure activity, paresthesia, anesthesia, motor weakness or paralysis. PHYSICAL EXAMINATION: Examination of the HEAD & NECK: EYES: NORY. Sclera were clear. External ocular movements were intact. EARS : Canals clear. TMs were unremarkable. THROAT: Posterior pharynx was normal. NECK : Neck was supple with no palpable nodes or masses. No nuchal rigidity. Thyroid was not enlarged. Trachea was midline. CHEST : Clear to PA. CVS : There was no increase in JVP, no peripheral edema. The apex was not felt. S1, S2 were present and normal. There was no S3, S4, no murmurs or other adventitious sounds. ABDOMEN : Examination of the abdomen revealed it to be soft and nontender on superficial or deep palpation. There were no abnormal masses felt. There was no organomegaly and bowel sounds were present. RAMSES: No obvious deformity. The patient had good range of motion of the limbs and joints. CARBIDE TOOL DIE MAKER : Oriented x 3. Cranials 2-12 were intact. DTRs were not evaluated. Gait wasnormal. ASSESSMENT: NORMAL EXAM PLAN: The patient was scheduled for Mammography. She will undergo CBC, Chem/Lipid Profile, as well as a chest x-ray and Dexa Bone Scan. She will be advised of any abnormal test results and further treatment pending results of those tests. Her medications were renewed for a period of three months with three refills. In addition she was given a trial of Elavi l 10 mg 1-2 at HS PRN, #60 to see if this would alleviate some of her crampy abdominal pain from her IBS. If effective she will call for a further supply. She will be seen in the office, otherwise, if there is any acute need. DICTATED BY MICHAEL MERCADO MD RAL:chandu CPT: 47450 R documented in this encounter Plan of Treatment Not on file documented as of this encounter Visit Diagnoses Not on filedocumented in this encounter
--- OUTSIDE RECORDS SUMMARY | 2024-06-12 07:34 | XMS_ITS | Encounter Summary ---
Author Organization [facility] Address [address] [place] [address]. [place] [phone] [place] [address] Care Team Providers Care Physical Ther Name Role Phone Unavailable Primary Care Provider Unavailabl e Encounter Details Date Type Department Care Team (Late st Contact Info) Description 08/19/2005 Abstract [facility] Conversion Md, Generic [...]
--- OUTSIDE RECORDS SUMMARY | 2024-06-12 07:34 | XMS_ITS | Encounter Summary ---
Author Organization [facility] Address [address] [place] [address]. [place] [address] [place] [address] Care Team Providers Care Director Of Database Marketing Name Role Phone Unavailable Primary Care Provider Unavailabl e Encounter Details Date Type Department Care Team (Late st Contact Info) Description 08/31/2005 Abstract [facility] Michael Bone MD [address] [address] Social History Tobacco Use Types Packs/Day Years Used Date Smoking Tobacco: Never Assessed Comments Unknown Sex and Gender Information Value Date Recorded Sex Assigned at Not on file Legal Sex Female 8:18 PM CDT Gender Identity Not on file Sexual Orientation Not on file documented as of this encounter Progress Notes * Michael Mercado MD - 08/31/2005 12:00 AM CDT Date: 08/31/05 Patient Acct. #: [id number] Patient Name: LISSET Valeria YO : 54 Prior authorization for Zelnorm has been denied per letter from [facility]. Keyona Purvis DIRECTOR OF REVENUE CYCLE MANAGEMENT ORT DRIVER * Michael Mercado MD - 08/31/2005 12:00 AM CDT Date: 08/31/05 Patient Acct. #: [id number] Patient Name: LISSET Shaw YO : 54 Patient states she is going to try some Citacal , Milk of mag, and some Fibercon for her IBS per her Insurance request and their prior auth denial for Zelnorm. Patient w ill let us know if any problems. Patient states she has tried this before with no relief but will try it again. Keyona Purvis DIRECTOR OF REVENUE CYCLE MANAGEMENT ORT DRIVER documented in this encounter Plan of Treatment Not on file documented as of this encounter Procedures Procedure Name Priority Date/Time Associated Diagnosis Comments CBC W/DIFF AUTOMATED Routine 08/31/2005 9:09 AM CDT documented in this encounter Results * (ABNORMAL) CBC W/DIFF AUTOMATED (08/31/2005 9:09 AM CDT) WBC 6.5 (4.8-10.8) K/UL [facility] TO EPIC CONVERSION RBC 4.26 (4.20-5.40 ) M/UL [facility] TO EPIC CONVERSION HEMOGLOBIN MIXED VENOUS 14.3 (12.0-15.0 ) G/DL [facility] TO EPIC CONVERSION HCT 41.3 (35.0-49.0 ) % [facility] TO EPIC CONVERSION MCV 97.1 (80.0-100. 0) FL [facility] TO EPIC CONVERSION MCH 33.5(H) (27.0-31.0 ) PG [facility] TO EPIC CONVERSION MCHC 34.5 (33.0-37.0 ) G/DL [facility] TO EPIC CONVERSION PLATELET COUNT 406(H) (140-400) K/UL [facility] TO EPIC CONVERSION COMMENT (140-400) [facility] T O EPIC CONVERSION Comment:AUTOMATED RBC MORPHO LOGY AND PLATELET EVALUATION NORMAL SEG NEUTROPHILS 60.1 (50-70) % [facility]OUP TO EPIC CONVERSION LYMPHOCYTES 27.7 (18-42) % [facility] TO EPIC CONVERSION MONOCYTES 6.0 (3.0-11.0) % [facility] TO EPIC CONVERSION EOSINOPHILS 5.9(H) (1.0-3.0) % [facility] TO EPIC CONVERSION BASOPHILS 0.3 (0.0-1.0) % [facility] TO EPIC CONVERSION ABS. NEUTROPHILS 3.9 (1.69-7.81 ) K/UL [facility] TO EPIC CONVERSION 08/31/2005 9:09 AM CDT 08/31/2005 9:09 AM CDT [facility] Estevan Mercado MD LABORATORY Final Res ult [facility] TO [facility] CONVERSION documented in this encounter Visit Diagnoses Not on filedocumented in this encounter
--- OUTSIDE RECORDS SUMMARY | 2024-06-12 07:34 | XMS_ITS | Encounter Summary ---
Author Organization [facility] Address [address] [place] [address]. [place] [phone] [place] [address] Care Team Providers Care Radiation Monitor Name Role Phone Unavailable Primary Care Provider Unavailabl e Encounter Details Date Type Department Care Team (Late st Contact Info) Description 08/27/2005 Abstract [facility] Conversion Md, Generic Conversion, Social History [...]
--- OUTSIDE RECORDS SUMMARY | 2024-06-12 07:39 | XMS_ITS | Encounter Summary ---
Author Organization [facility] Healthcare Address [address] [place] [address] Care Team Providers Care Resident Care Manager Name Role Phone Baldo Bower MD Primary Care Provider + [phone] Moisés Marlonlatishaadair DO Unavailable [phone] Reason for Referral * Diagnostic Imaging (Routine) - Closed Specialty Diagnoses / Procedures Referred By Contac t Referred To Contact Diagnoses Primary osteoarthritis of right hip Procedures XR Hip Right 2 or 3 Views W Pelvis Davie Hawkins PA [address] [place] [address] [place] [id number] Phone: tel: fax: [facility] Referral ID Status Reason Start Date Expiration Date Visits Re quested Visits Authorized [id number] Closed 04/09/2024 05/09/2025 1 1 EN [employer]OX [employer]ER Reason for Visit * Diagnostic Imaging (Routine) - Closed Specialty Diagnoses / Procedures Referred By Contac t Referred To Contact Diagnoses Primary osteoarthritis of right hip Procedures XR Hip Right 2 or 3 Views W Pelvis Davie Hawkins PA [address] [place] [address] [place] [id number] Phone: tel: fax: [facility] Referral ID Status Reason Start Date Expiration Date Visits Re quested Visits Authorized [id number] Closed 04/09/2024 05/09/2025 1 1 Encounter Details Date Type Department Care Team (Latest Contact Info) Description 04/10/2024 1:11 PM WOODEN [employer]OX [employer] - 04/10/2024 11:59 PM [employer]EN [employer] Hospital Encounter [facility] 1 DIAG IMG [address] [place] [address] Primary osteoarthritis of right hip Discharge Disposition: Discharge to home or self care Social History Tobacco Use Types Packs/Day Years Used Date Smoking Tobacco: Former Cigarettes 1.5 18 S tarted: 1986 Passive Smoke Exposure: Past Smokeless Tobacco: Never [facility] Utilities Answer Date Recorded In the past 12 months has th e [employer], gas, oil, or water [employer] threatened to shut off services in your home? No 03/26/2024 Social Connection and Isolation Panel [NHANES] A nswer Date Recorded In a typical week, how many times do you talk on the phone with family, friends, or neighbors? Three times a week 03/26/2024 How often do you get togethe r with friends or relatives? Three times a week 03/26/2024 How often do you attend [facility] or denominational services? Never 03/26/2024 Do you belong to any clubs o r organizations such as congregational groups, unions, fraternal or athletic groups, or school groups? No 03/26/2024 How often do you attend meet ings of the clubs or organizations you belong to? Never 03/26/2024 Are you , , di vorced, , never , or living with a partner? 03/26/2024 AUDIT-C Answer Date Recorded Q1: How often do you have a drink containing alc ohol? 2-4 times a month 03/13/2024 Q2: How many drinks containi ng alcohol do you have on a typical day when you are drinking? 1 or 2 03/13/2024 Q3: How often do you have si x or more drinks on one occasion? Never 03/13/2024 Overall Financial Resource Strain (CARDIA) Answe r Date Recorded How hard is it for you to pa y for the very basics like food, housing, medical care, and heating? Not hard at all 03/26/2024 Hunger Vital Sign Answer Date Recorded Within the past 12 months, y ou worried that your food would run out before you got the money to buy more. Never true 03/26/20 24 Within the past 12 months, t he food you bought just didn't last and you didn't have money to get more. Never true 03/26/2024 PRAPARE - Transportation Answer Date Re corded In the past 12 months, has l ack of transportation kept you from medical appointments or from getting medications? No 02/28 In the past 12 months, has l ack of transportation kept you from meetings, work, or from getting things needed for daily living? No 03/26/2024 Housing Stability Vital Sign Answer Sampson e Recorded In the last 12 months, was t here a time when you were not able to pay the mortgage or rent on time? No 03/26/2024 In the past 12 months, how m any times have you moved where you were living? 0 03/26/2024 At any time in the past 12 m onths, were you homeless or living in a skilled nursing (including now)? No 03/26/2024 Personal Safety Answer Date Recorded Have you ever been in or are you currently in a harmful physical or emotional relationship or is someone making you feel afraid or unsafe? Denies 03/26/2024 Comments Unknown Sex and Gender Information Value Date Recorded Sex Assigned at Not on file Legal Sex Female 1:32 PM WO[employer]EN [employer]OX [employer] Gender Identity Not on file Sexual Orientation Not on file documented as of this encounter Medications at Time of Discharge acetaminophen ER (TYLENOL) 650 mg 8 hr tablet Take 2 tablets (1,300 mg total) by mouth 2 (two) times a day aspirin 81 mg chewable tabletIndications:p revention of thrombosis Take 1 tablet (81 mg total) by mouth 2 (two) times a day 60 tablet 4 atenoloL (TENORMIN) 25 mg tablet Take 1 tablet (25 mg total) by mouth nightly 3 blood glucose control high,low (Accu-Chek Guide L1-L2 Ctrl Nadja) solution by intravitreal route 8 blood glucose diagnostic (Accu-Chek Guide test strips) strip by intravitreal route 8 blood-glucose meter (Accu-Chek Guide Glucose Meter) [facility] ACCU-CHEK GUIDE W/DEVICE KIT 8 calcium carbonate-vitamin D3 (Calcium 500 + D) 1,250 mg (500 mg elemental)-400 unit chewable tablet CALCIUM + D TABLET 9 cholecalciferol (VITAMIN D-3) 2000 unit tablet Take 1 tablet (2,000 Units total) by mouth 2 (two) times a day Cholestyramine Light 4 gram powder 02/08/20 2 4 docusate sodium (COLACE) 100 mg capsuleIndications: constipation Take 1 capsule (100 mg total) by mouth 2 (two) times a day 60 capsule 4 doxycycline (PERIOSTAT) 20 mg tabletIndications:O ther (complete free text reason below),Rosacea Take 2 tablets (40 mg total) by mouth daily For Rosacea ferrous sulfate 325 mg (65 mg of elemental iron) tabletIndications:I luciana Deficiency Anemia Take 1 tablet (325 mg total) by mouth daily with breakfast fluticasone propionate (FLONASE ALLERGY RELIEF NASL) Administer 1 spray into affected nostril(s) daily glucosamine sulfate 500 mg capsule GLUCOSAMINE CAPSULE 9 glucosamine-chondro itin 250-200 mg tablet Take 1 tablet by mouth 2 (two) times a day HYDROcodone-acetami nophen (NORCO) 7.5-325 mg per tabletIndications:P ain Take 1 tablet by mouth every 8 (eight) hours as needed for pain for up to 21 doses 21 tablet 4 lancets 30 gauge [facility] PHARMACIST CHOICE LANCETS 8 lancing device [facility] SIMPLE DIAGNOSTICS LANCING DEV 8 lisinopriL (PRINIVIL,ZESTRIL) 10 mg tablet Take 1 tablet (10 mg total) by mouth daily 3 loratadine 10 mg capsule Take 1 tablet by mouth nightly LORazepam (ATIVAN) 0.5 mg tablet Take 1 tablet (0.5 mg total) by mouth every 8 (eight) hours as needed for anxiety meloxicam (MOBIC) 7.5 mg tablet Take 1 tablet (7.5 mg total) by mouth 2 (two) times a day metFORMIN (GLUCOPHAGE) 500 mg tablet Take 1 tablet (500 mg total) by mouth 2 (two) times a day with meals 8 ondansetron ODT (ZOFRAN-ODT) 4 mg disintegrating tabletIndications:P revention of Post-Operative Nausea and Vomiting Take 1 tablet (4 mg total) by mouth every 8 (eight) hours as needed for nausea or vomiting [address] (PROTONIX) 40 mg EC tablet Take 1 tablet (40 mg total) by mouth 2 (two) times a day rosuvastatin (CRESTOR) 20 mg tablet Take 1 tablet (20 mg total) by mouth nightly UNABLE TO FIND Take 1 each by mouth 2 (two) times a day Med Name: MegaRed [place]-3 Krill oil UNABLE TO FIND Take 1 each by mouth daily Med Name: Qunol ultra CoQ10 100 mg valACYclovir (VALTREX) 500 mg tabletIndications:C hronic Suppression,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, nose and mouth Take 1 tablet (500 mg total) by mouth daily vitamins A,C,K-xsky-ymulzj (ICAPS) 4,296 mcg-226 mg-90 mg capsule Take 1 capsule by mouth 2 (two) times a day documented as of this encounter Discharge Disposition Disposition Code Departure Means Destination Discharge to home or self care documented in this encounter Plan of Treatment Not on file documented as of this encounter Procedures Procedure Name Priority Date/Time Associated Diagnosis Comments XR HIP RIGHT W PELVIS 2 OR 3 VIEWS Schedule Routine, Read Routine (OP Routine) 04/10/2024 1:25 PM WO[employer] Primary osteoarthritis of right hip documented in this encounter Results * XR Hip Right 2 or 3 Views W Pelvis (04/10/2024 1:25 PM WOODEN [employer]OX [employer]KER) Anatomical Region Laterality Modality Lower Extremities, Hip, Pelvis Right C omputed Radiography 04/13/2024 12:3 7 PM WO[employer]EN [employer]OX [employer]ER Narrative 04/13/2024 12:38 PM WOODEN [employer]OX [employer]KER EXAM DESCRIPTION: XR HIP RIGHT 2 OR 3 VIEWS W PELVIS REASON FOR STUDY: pain ?? Follow up, post op 03/26/24, ??post op pain ? FINDINGS: Two views submitted with comparison 03/26/2024. Right total hip arthroplasty is calcification at the right ischial tuberosity is noted. ??In near anatomic alignment. ??There are no fractures or evidence of loosening. ??There is mild left hip osteoarthritis. IMPRESSION: Right total hip arthroplasty in near anatomic alignment. THIS IS AN ELECTRONICALLY VERIFIED FINAL REPORT 04/13/2024 12:38 PM - Electronically signed by ??Sam Rice M.D. MF: [email or web address] D: ??04/13/2024 12:38 PM T: ??04/13/2024 12:38 PM Report ID: [id number] Reading Location: ??[id number] Procedure Note Sam Rice MD - 04/13/2024 EXAM DESCRIPTION: XR HIP RIGHT 2 OR 3 VIEWS W PELVIS REASON FOR STUDY: pain Follow up, post op 03/26/24, post op pain FINDINGS: Two views submitted with comparison 03/26/2024. Right total hip arthroplasty is calcification at the right ischialtuberosity is noted. In near anatomic alignment. There are no fractures or evidenceof loosening. There is mild left hip osteoarthritis. IMPRESSION: Right total hip arthroplasty in near anatomic alignment. THIS IS AN ELECTRONICALLY VERIFIED FINAL REPORT 04/13/2024 12:38 PM - Electronically signed by Sam Rice M.D. MF: [email or web address] Report ID: [id number] Reading Location: [id number] XR PROCEDURES Final Result documented in this encounter Visit Diagnoses Diagnosis Primary osteoarthritis of right hip documented in this encounter Care Teams Resident Care Manager Relationship Specialty Start Date End Date Baldo Bower MD PCP - General Family Practice 11/03/23 Lacy Curiel DO [address] [place] [address] Consulting Physician Orthopedic Surgery 03/27/24 documented as of this encounter
--- OUTSIDE RECORDS SUMMARY | 2024-06-12 07:39 | XMS_ITS | Referral Summary ---
Author Organization [facility] Address [address] [place] [address] Care Team Providers Care Hypo Splasher Name Role Phone Baldo Bower MD Primary Care Provider [phone] Lacy Curiel DO Unavailable [phone] Encounters Date Type Department Care Team Description 05/08/2024 7:45 AM MEDIA OPERATOR - 05/08/2024 11:59 PM MEDIA OPERATOR Hospital Encounter [facility] MOB 1 DIAG IMG [address] [place] [address] [phone] Status post joint replacement Discharge Disposition: Discharge to home or self care 05/08/2024 8:45 AM MEDIA OPERATOR Office Visit [facility] Medicine [address] [place] [address] [phone] Lacy Curiel DO Aftercare following right hip joint replacement surgery (Primary Dx); Status post joint replacement 04/10/2024 1:11 PM MEDIA OPERATOR - 04/10/2024 11:59 PM MEDIA OPERATOR Hospital Encounter [facility] M[facility] 1 DIAG IMG [address] [place] [phone] Primary osteoarthritis of right hip Discharge Disposition: Discharge to home or self care 04/10/2024 1:00 PM MEDIA OPERATOR Office Visit [facility] Medical [facility] Orthopedics and Sports Medicine [address] [place] [address] [phone] Davie Hawkins PA Primary osteoarthritis of right hip (Primary Dx); Aftercare following right hip joint replacement surgery 03/26/2024 5:13 AM CDT - 03/27/2024 12:54 PM CDT Hospital Encounter [address] [address] Lacy Curiel DO Primary osteoarthritis of right hip [M16.11] (Primary Dx); Aftercare following right hip joint replacement surgery Discharge Disposition: Discharge to home or self care 03/26/2024 7:30 AM CDT - 03/26/2024 10:30 AM CDT Surgery [facility] OR [address] [place] [phone] Lacy Curiel DO ANTERIOR APPROACH, RIGHT TOTAL HIP ARTHROPLASTY 03/26/2024 7:26 AM CDT Anesthesia Event [facility] OR [address] [place] [phone] Jordan Robb MD Marshall, Lauren N., AGRICULTURAL RESEARCH ENGINEER 03/15/2024 1:30 PM CDT - 03/15/2024 11:59 PM CDT Hospital Encounter [facility] 1 DIAG IMG [address] [place] [phone] Pre-operative exam Discharge Disposition: Discharge to home or self care 03/15/2024 1:30 PM CDT Office Visit [facility] Medicine [address] [place] [address] [place] [phone] Lacy Curiel DO Pre-operative exam (Primary Dx); Primary osteoarthritis of right hip 03/15/2024 Plan of Care Documentation [facility] OP Occup Therapy [address] [place] [address] 03/13/[address] [address] Huma Shepherd, FATMATA 03/13/2024 10:00 AM CDT Pre-Admission Testing [facility] PreAdmission Testing [address] [place] [phone] Preop examination (Primary Dx); Primary osteoarthritis of right hip; Preop testing; Pain in other specified joint 03/13/2024 1:00 PM CDT Therapy [facility] OP Occup Therapy [address] [place] [address] Devika Souza, OT Primary osteoarthritis of right hip (Primary Dx) from Last 3 Months Allergies Active Allergy Reactions Criticality Noted Date Comments Cephalexin Hives Medium 03/13/2024 Happened in 1974. Does not know if she has ever had Ancef. Penicillins Other (See comments) Low 12/01/2016 Massive hives, choked up, spent 36 hours in the ED , facial swelling, throat swelling, skin turned red. 1974 Sulfa (Sulfonamide Antibiotics) Shortness of breath High 09/06/2018 Medications metFORMIN (GLUCOPHAGE) 500 mg tablet Take 1 tablet (500 mg total) by mouth 2 (two) times a day with meals 09/21/19 18 Active lisinopriL (PRINIVIL,ZESTRIL) 10 mg tablet Take 1 tablet (10 mg total) by mouth daily 03/30/20 23 Active atenoloL (TENORMIN) 25 mg tablet Take 1 tablet (25 mg total) by mouth nightly 03/17/[address] (PROTONIX) 40 mg EC tablet Take 1 tablet (40 mg total) by mouth 2 (two) times a day Active fluticasone propionate (FLONASE ALLERGY RELIEF NASL) Administer 1 spray into affected nostril(s) daily Active doxycycline (PERIOSTAT) 20 mg tabletIndications: Other (complete free text reason below),Rosacea Take 2 tablets (40 mg total) by mouth daily For Rosacea Active rosuvastatin (CRESTOR) 20 mg tablet Take 1 tablet (20 mg total) by mouth nightly Active ferrous sulfate 325 mg (65 mg of elemental iron) tabletIndications: Iron Deficiency Anemia Take 1 tablet (325 mg total) by mouth daily with breakfast Active UNABLE TO FIND Take 1 each by mouth 2 (two) times a day Med Name: MegaRed [place]-3 Krill oil Active meloxicam (MOBIC) 7.5 mg tablet Take 1 tablet (7.5 mg total) by mouth 2 (two) times a day Active acetaminophen ER (TYLENOL) 650 mg 8 hr tablet Take 2 tablets (1,300 mg total) by mouth 2 (two) times a day Active UNABLE TO FIND Take 1 each by mouth daily Med Name: Qunol ultra CoQ10 100 mg Active glucosamine-chondr oitin 250-200 mg tablet Take 1 tablet by mouth 2 (two) times a day Active valACYclovir (VALTREX) 500 mg tabletIndications: Chronic Suppression,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, nose and mouth Take 1 tablet (500 mg total) by mouth daily Active cholecalciferol (VITAMIN D-3) 2000 unit tablet Take 1 tablet (2,000 Units total) by mouth 2 (two) times a day Active vitamins A,C,H-bovu-yshtyt (ICAPS) 4,296 mcg-226 mg-90 mg capsule Take 1 capsule by mouth 2 (two) times a day Active loratadine 10 mg capsule Take 1 tablet by mouth nightly Active LORazepam (ATIVAN) 0.5 mg tablet Take 1 tablet (0.5 mg total) by mouth every 8 (eight) hours as needed for anxiety Active Cholestyramine Light 4 gram powder 02/08/20 24 Active aspirin 81 mg chewable tabletIndications: prevention of thrombosis Take 1 tablet (81 mg total) by mouth 2 (two) times a day 60 tablet 03/27/20 24 Active docusate sodium (COLACE) 100 mg capsuleIndications :constipation Take 1 capsule (100 mg total) by mouth 2 (two) times a day 60 capsule 03/27/20 24 Active HYDROcodone-acetam inophen (NORCO) 7.5-325 mg per tabletIndications: Pain Take 1 tablet by mouth every 8 (eight) hours as needed for pain for up to 21 doses 21 tablet 03/27/20 24 Active ondansetron ODT (ZOFRAN-ODT) 4 mg disintegrating tabletIndications: Prevention of Post-Operative Nausea and Vomiting Take 1 tablet (4 mg total) by mouth every 8 (eight) hours as needed for nausea or vomiting 10 tablet 03/27/20 24 Active calcium carbonate-vitamin D3 (Calcium 500 + D) 1,250 mg (500 mg elemental)-400 unit chewable tablet CALCIUM + D TABLET 09/07/19 19 Active blood-glucose meter (Accu-Chek Guide Glucose Meter) [facility] ACCU-CHEK GUIDE W/DEVICE KIT 05/25/20 18 Active blood glucose diagnostic (Accu-Chek Guide test strips) strip by intravitreal route 05/25/20 18 Active blood glucose control high,low (Accu-Chek Guide L1-L2 Ctrl Nadja) solution by intravitreal route 05/25/20 18 Active glucosamine sulfate 500 mg capsule GLUCOSAMINE CAPSULE 09/07/19 19 Active lancets 30 gauge misc PHARMACIST CHOICE LANCETS 05/25/20 18 Active lancing device misc SIMPLE DIAGNOSTICS LANCING DEV 05/25/20 18 Active Active Problems Problem Noted Date Diagnosed Date Primary osteoarthritis of right hip 02/23/2024 Chest pain 09/06/2018 Diabetes mellitus 09/06/2018 Dyslipidemia 09/06/2018 Hypertension 09/06/2018 Tobacco dependence syndrome 09/06/2018 Abnormal mammogram 11/23/2016 Mass of breast 11/23/2016 Disorder of sacrococcygeal spine 03/19/2016 Overview (09/03/2016): Sacrococcygeal disorders, not elsewhere classified Piriformis syndrome 03/19/2016 Overview (09/03/2016): Piriformis syndrome, right Convulsions Social History Tobacco Use Types Packs/Day Years Used Date Smoking Tobacco: Former Cigarettes 1.5 18 S tarted: 1986 Passive Smoke Exposure: Past Smokeless Tobacco: Never Tobacco Cessation:Counseling Given: Not Answered [facility] Utilities Answer Date Recorded In the past 12 months has e [employer], gas, oil, or water [employer] threatened to shut off services in your [...] week 03/26/2024 How often do you attend chur ch or religion services? Never 03/26/2024 Do you belong to any clubs o r organizations such as voodoo groups, unions, fraternal or athletic groups, or [...] any time in the past 12 m [facility], were you homeless or living in a senior living (including now)? No 03/26/2024 Personal Safety Answer Date Recorded Have you ever been in or are you currently in a harmful physical or emotional relationship or is someone making you feel afraid or unsafe? Denies 03/26/2024 Comments Unknown Sex and Gender Information Value Date Recorded Sex Assigned at Not on file Legal Sex Female 1:32 PM MEDIA OPERATOR Gender Identity Not on file Sexual Orientation Not on file Last Filed Vital Signs Vital Sign Reading Time Taken Comments Blood Pressure 108/71 03/27/2024 11:52 AM CDT Pulse 79 03/27/2024 11:52 AM CDT Temperature 36.6 ??C (97.9 ??F) 03/27/2024 11:52 AM C DT Respiratory Rate 18 03/27/2024 11:52 AM CDT Oxygen Saturation 96% 03/27/2024 11:52 AM CDT Inhaled Oxygen Concentration - - Weight 62.6 kg (138 lb) 03/26/2024 12:25 PM CDT Height 157.5 cm (5' 2 ) 03/26/2024 12:25 PM CDT Body Mass Index 25.24 03/26/2024 12:25 PM CDT Plan of Treatment Not on file Medical Devices Implanted Type Area Humidifier Maintenance Worker Device Identifier Shelf Expiration Date Model / Serial / Lot [employer] Shell Acetabular Emsys Shl 3hole 48 [id number] - [id number] Implanted:Qty: 1 on 03/26/2024 by Lacy Curiel DO at [facility] Right: Hip [employer] [id number] 01/27/2034 [id number] / / [id number] [employer] Liner Acetabular Emsys Lnr Aox N 48x36 [id number] - [id number] Implanted:Qty: 1 on 03/26/2024 by Lacy Curiel DO at [facility] Right: Hip [employer] [id number] 12/27/2028 [id number] / / [id number] [employer] Ola 6.5mm 20mm Acetabular Cancellous Screw Bone Sterile 1217-20-500 - [id number] Implanted:Qty: 1 on 03/26/2024 by Lacy Curiel DO at [facility] Right: Hip [employer] [id number] 11/26/2033 1217-20-500 / / [id number] [employer] Ola 6.5mm 25mm Acetabular Cancellous Screw Bone Sterile 1217-25-500 - [id number] Implanted:Qty: 1 on 03/26/2024 by Lacy Curiel DO at [facility] Right: Hip [employer] [id number] 12/27/2033 1217-25-500 / / [id number] [employer] Stem Femoral Hip Porous Proximal Collared Actis 95mm Titanium Standard Offset Size 0 [id number] - [id number] Implanted:Qty: 1 on 03/26/2024 by Lacy Curiel DO at [facility] Right: Hip [employer] [id number] 09/26/2032 [id number] / / [id number] [employer] Articul/Alpesh 36mm Cementless Hip +5mm / Taper Head Femoral Latex Free [id number] - [id number] Implanted:Qty: 1 on 03/26/2024 by Lacy Curiel DO at [facility] Right: Hip [employer] [id number] 11/26/2028 [id number] / / [id number] Procedures Procedure Name Priority Date/Time Associated Diagnosis Comments XR HIP RIGHT W PELVIS 2 OR 3 VIEWS Schedule Routine, Read Routine (OP Routine) 05/08/2024 8:30 AM MEDIA OPERATOR Status post joint replacement XR HIP RIGHT W PELVIS 2 OR 3 VIEWS Schedule Routine, Read Routine (OP Routine) 04/10/2024 1:25 PM MEDIA OPERATOR Primary osteoarthritis of right hip POCT GLUCOSE DEVICE Routine 03/27/2024 12:15 PM CDT POCT GLUCOSE DEVICE Routine 03/27/2024 7 :59 AM CDT EGFR Routine 03/27/2024 5:32 AM CDT DIFFERENTIAL AUTO Routine 03/27/2024 5:3 2 AM CDT CBC WITH AUTO DIFFERENTIAL Routine 03/27/2024 5:32 AM CDT BASIC METABOLIC PANEL Routine 03/27/2024 5:32 AM CDT POCT GLUCOSE DEVICE Routine 03/26/2024 7 :49 PM CDT POCT GLUCOSE DEVICE Routine 03/26/2024 4 :46 PM CDT POCT GLUCOSE DEVICE Routine 03/26/2024 11:24 AM CDT XR HIP RIGHT W PELVIS 2 OR 3 VIEWS ED Urgent/IP Urgent 03/26/2024 10:10 AM CDT POCT GLUCOSE DEVICE Routine 03/26/2024 10:03 AM CDT FL FLUOROSCOPY < 1 HOUR IP Routine 03/26/2024 9:10 AM CDT WV AN PROCEDURE PLACEHOLDER Routine 03/26/2024 8:01 AM CDT WV AN ELECTIVE ENDOTRACHEAL AIRWAY Routine 03/26/2024 8:01 AM CDT ARTHROPLASTY TOTAL HIP - ANTERIOR APPROACH 03/26/2024 7:23 AM CDT Primary osteoarthritis of right hip Case Notes RTHA B ABO / RH CONFIRMATION TESTING STAT 03/26/2024 6:13 AM CDT POCT GLUCOSE DEVICE Routine 03/26/2024 6 :11 AM CDT XR HIP RIGHT W PELVIS 2 OR 3 VIEWS Schedule Routine, Read Routine (OP Routine) 03/15/2024 1:35 PM CDT Pre-operative exam EGFR Routine 03/13/2024 10:09 AM CDT Primary osteoarthritis of right hip Preop testing DIFFERENTIAL AUTO Routine 03/13/2024 10:09 AM CDT Primary osteoarthritis of right hip Preop testing ANTIBODY SCREEN Routine 03/13/2024 10:09 AM CDT Primary osteoarthritis of right hip Preop testing ABO/RH Routine 03/13/2024 10:09 AM CDT Primary osteoarthritis of right hip Preop testing NICOTINE METABOLITE SCREEN, URINE Routine 03/13/2024 10:09 AM CDT Primary osteoarthritis of right hip Preop testing COMPREHENSIVE METABOLIC PANEL Routine 03/13/2024 10:09 AM CDT Primary osteoarthritis of right hip Preop testing CBC WITH AUTO DIFFERENTIAL Routine 03/13/2024 10:09 AM CDT Primary osteoarthritis of right hip Preop testing TYPE AND SCREEN 14 DAY Routine 03/13/2024 10:09 AM CDT Primary osteoarthritis of right hip Preop testing PROTIME-INR Routine 03/13/2024 10:09 AM CDT Primary osteoarthritis of right hip Preop testing Pain in other specified joint INFECTION PREVENTION MRSA ONLY (STAPHYLOCOCCUS AUREUS) PCR Routine 03/13/2024 10:09 AM CDT Primary osteoarthritis of right hip Preop testing ECG 12-LEAD Routine 03/13/2024 9:52 AM CDT Preop examination DEXA AXIAL SKELETON BONE DENSITY 1 OR MORE SITES Schedule Routine, Read Routine (OP Routine) 03/19/2020 12:14 PM CDT Age related osteoporosis, unspecified pathological fracture presence SCREENING MAMMOGRAM BILATERAL W AZ Schedule Routine, Read Routine (OP Routine) 03/19/2020 11:32 AM CDT Encounter for screening for malignant neoplasm of breast, unspecified screening modality from Last 3 Months or Most Recently Relevant to Health Maintenance Results * XR Hip Right W Pelvis Min 2 To 3 Views (05/08/2024 8:30 AM MEDIA OPERATOR) Anatomical Region Laterality Modality Lower Extremities, Hip, Pelvis Right C omputed Radiography 05/11/2024 8:55 AM MEDIA OPERATOR Narrative 05/11/2024 9:03 AM MEDIA OPERATOR EXAM DESCRIPTION: XR HIP RIGHT 2 OR 3 VIEWS W PELVIS REASON FOR STUDY: postoperative care. ??Right hip osteoarthritis. Follow up, mild pain ? FINDINGS: Two views submitted with comparison 04/10/2024. Right total hip arthroplasty is in near anatomic alignment. ??There are no fractures or evidence of loosening. ??There is mild left hip osteoarthritis. ?? Hamstring chondrocalcinosis is present. IMPRESSION: Right total hip arthroplasty in near anatomic alignment. THIS IS AN ELECTRONICALLY VERIFIED FINAL REPORT 05/11/2024 9:03 AM - Electronically signed by ??Sam Rice M.D. MF: [email or web address] D: ??05/11/2024 9:03 AM T: ??05/11/2024 9:03 AM Report ID: [id number] Reading Location: ??[id number] Procedure Note Sam Rice MD - 05/11/2024 EXAM DESCRIPTION: XR HIP RIGHT 2 OR 3 VIEWS W PELVIS REASON FOR STUDY: postoperative care. Right hip osteoarthritis. Follow up, mild pain FINDINGS: Two views submitted with comparison 04/10/2024. Right total hip arthroplasty is in near anatomic alignment. There are no fractures or evidence of loosening. There is mild left hiposteoarthritis. Hamstring chondrocalcinosis is present. IMPRESSION: Right total hip arthroplasty in near anatomic alignment. THIS IS AN ELECTRONICALLY VERIFIED FINAL REPORT 05/11/2024 9:03 AM - Electronically signed by Sam Rice M.D. MF: [email or web address] Report ID: [id number] Reading Location: [id number] Lacy Curiel DO IMG XR PROCEDURES Final Result * XR Hip Right 2 or 3 Views W Pelvis (04/10/2024 1:25 PM MEDIA OPERATOR) Anatomical Region Laterality Modality Lower Extremities, Hip, Pelvis Right C omputed Radiography 04/13/2024 12:3 7 PM MEDIA OPERATOR Narrative 04/13/2024 12:38 PM MEDIA OPERATOR EXAM DESCRIPTION: XR HIP RIGHT 2 OR [...] PM T: ??04/13/2024 12:38 PM Report ID: [id number] Reading Location: ??[id number] Procedure Note Sam Rice MD - 04/13/2024 [...] Sam Rice M.D. MF: [email or web address] Report ID: [id number] Reading Location: [id number] Davie BARRY IMG XR PROCEDURES Final Result * POCT glucose (03/27/2024 12:15 PM CDT) Glucose, POC 125 70 - 199 mg/dL Glucose comment 1 RN/MD Notified ASHOK MORENO Blood 03/27/2024 12:1 5 PM CDT 03/27/2024 12:15 PM CDT Lacy Curiel DO LAB POCT ORDERABLES - DEVICE F inal Result ASHOK [address] [facility] Department of Laboratories [place], [place] [id number] * POCT glucose (03/27/2024 7:59 AM CDT) Glucose, POC 105 70 - 199 mg/dL Glucose comment 1 RN/MD Notified ASHOK MORENO Blood 03/27/2024 7:59 AM CDT 03/27/2024 7:59 AM CDT us Lacy Curiel DO LAB POCT ORDERABLES - DEVICE F inal Result ASHOK MORENO [address] [facility] Department [place] [address] * eGFR (03/27/2024 5:32 AM CDT) Pathologist [facility] eGFR >90 >=60 mL/min/1. 73 m2 Comment: Interpretive Data Reference Interval Normal ?>/= 90 mL/min/1.73m2 Mildly decreased* ? 60 - 89 mL/min/1.73m2 Mildly to moderately decreased ?45 - 59 mL/min/1.73m2 Moderately to severely decreased ??30 - 44 mL/min/1.73m2 Severely decreased ?15 - 29 mL/min/1.73m2 Kidney Failure ?< 15 ??mL/min/1.73m2 *Relative to young adult level Estimated glomerular filtration rate is determined by the 2020 CKD-EPI equation recommended by the National Kidney Foundation (A Unifying Approach to GFR Estimation: Recommendations of the NKF-ASK Task Force on Reassessing the Inclusion of Race in Diagnosing Kidney Disease, JASN 2020). The CKD-EPI equation should not be used for patients with unstable renal function and has not been validated in children and those over 70. Current interpretive data was last reviewed 2021. Blood 03/27/2024 5:32 AM CDT 03/27/2024 6:16 AM CDT us Davie BARRY LAB BLOOD ORDERABLES Final Resul t ASHOK [address] [facility] Department [place] [address] * (ABNORMAL) Differential, auto (03/27/2024 5:32 AM CDT) Neutrophil abs 8.6(H) 1.5 - 6.5 K/cumm Imm gran abs 0.0 0.0 - 0.1 K/cumm [facility] Lymphocyte abs 3.4(H) 0.8 - 3.3 K/cumm [facility] Monocyte abs 1.2(H) 0.2 - 0.8 K/cumm [facility] Eosinophil abs 0.1 0.0 - 0.5 K/cumm [facility] Basophil abs 0.0 0.0 - 0.1 K/cumm [facility] Neutrophil pct 64.6 % [facility] Comment: Interpretive Data Percent cell count reference ranges are not reported, since discordance with absolute values may lead to misinterpretation of CBC data. Current Interpretive Data was last revised on 2017. Imm gran pct 0.3 % [facility] Comment: Interpretive Data Percent cell count reference ranges are not reported, since discordance with absolute values may lead to misinterpretation of CBC data. Current Interpretive Data was last revised on 2017. Lymphocyte pct 25.4 % [facility] Comment: Interpretive Data Percent cell count reference ranges are not reported, since discordance with absolute values may lead to misinterpretation of CBC data. Current Interpretive Data was last revised on 2017. Monocyte pct 8.8 % [facility] Comment: Interpretive Data Percent cell count reference ranges are not reported, since discordance with absolute values may lead to misinterpretation of CBC data. Current Interpretive Data was last revised on 2017. Eosinophil pct 0.7 % [facility] Comment: Interpretive Data Percent cell count reference ranges are not reported, since discordance with absolute values may lead to misinterpretation of CBC data. Current Interpretive Data was last revised on 2017. Basophil pct 0.2 % [facility] Comment: Interpretive Data Percent cell count reference ranges are not reported, since discordance with absolute values may lead to misinterpretation of CBC data. Current Interpretive Data was last revised on 2017. Blood 03/27/2024 5:32 AM CDT 03/27/2024 6:16 AM CDT Davie BARRY LAB BLOOD ORDERABLES Final Resul t Performing Organization Address [facility] Co de Phone Number [facility] [address] [place] [address] * (ABNORMAL) CBC with auto differential (03/27/2024 5:32 AM CDT) [facility] WBC 13.3(H) 3.8 - 9.9 K/cumm Hgb 9.7(L) 11.9 - 15.5 g/dL [facility] Hct 28.6(L) 35.6 - 45.5 % [facility] Plt 174 150 - 400 K/cumm [facility] MPV 10.3 9.1 - 12.3 fL [facility] RBC 2.83(L) 3.90 - 5.20 M/cumm [facility] MCV 101.1(H) 81.3 - 96.4 fL [facility] MCH 34.3(H) 27.1 - 33.3 pg [facility] MCHC 33.9 32.3 - 35.7 g/dL [facility] RDW CV 12.2 11.1 - 14.9 % [facility] RDW SD 45.2 35.7 - 48.1 fL [facility] NRBC abs 0.00 0.00 - 0.01 K/cumm [facility] Blood 03/27/2024 5:32 AM CDT 03/27/2024 6:16 AM CDT Davie BARRY LAB BLOOD ORDERABLES Final Resul t Performing Organization Address City/[facility] Co de Phone Number ASHOK [address] [place] [address] * Basic metabolic panel (03/27/2024 5:32 AM CDT) Sodium 139 135 - 145 mmol/L Potassium, pl 3.6 3.3 - 4.9 mmol/L [facility] Chloride 103 97 - 110 mmol/L [facility] CO2 25 22 - 32 mmol/L [facility] Anion gap 11 2 - 15 mmol/L [facility] BUN 13 6 - 25 mg/dL [facility] Creatinine 0.67 0.60 - 1.10 mg/dL [facility] Glucose 98 70 - 199 mg/dL [facility] Comment: Interpretive Data Fasting glucose >/= 126 mg/dl is diagnostic for diabetes. ?? Fasting is defined as no caloric intake for at least 8 hours. Fasting glucose between 100 mg/dl to 125 mg/dl is diagnostic of prediabetes. In a patient with classic symptoms of hyperglycemia or hyperglycemic crisis, a random glucose >/= 200 mg/dl is diagnostic for diabetes. In the absence of unequivocal hyperglycemia, results should be confirmed by repeat testing. The classification and Diagnosis of Diabetes Diabetes Care 2021; 46: S19-S40. Current interpretive data was last revised 2022. Calcium 9.5 8.5 - 10.3 mg/dL [facility] Blood 03/27/2024 5:32 AM CDT 03/27/2024 6:16 AM CDT Davie Hawkins PA LAB BLOOD ORDERABLES Final Resul t Performing Organization Address [facility] Co de Phone Number [address] Department of [place], [place] [id number] * (ABNORMAL) POCT glucose (03/26/2024 7:49 PM CDT) [facility] Glucose, POC 243(H) 70 - 199 mg/dL Glucose comment 1 Use This Result [facility] Glucose comment 2 RN/MD Notified [facility] Blood 03/26/2024 7:49 PM CDT 03/26/2024 7:49 PM CDT Lacy Curiel DO LAB POCT ORDERABLES - DEVICE F inal Result Performing Organization Address City/[facility] Co de Phone Number CERNER [address] [address] * POCT glucose (03/26/2024 4:46 PM CDT) Glucose, POC 152 70 - 199 mg/dL Glucose comment 1 Use This Result [facility] Glucose comment 2 RN/MD Notified [facility] Blood 03/26/2024 4:46 PM CDT 03/26/2024 4:46 PM CDT [employer] Moisés DO LAB POCT ORDERABLES - DEVICE F inal Result Performing Organization Address [facility] Co de Phone Number ASHOK [address] [address] * POCT glucose (03/26/2024 11:24 AM CDT) Glucose, POC 147 70 - 199 mg/dL Glucose comment 1 Use This Result [facility] Glucose comment 2 RN/MD Notified [facility] Blood 03/26/2024 11:2 4 AM CDT 03/26/2024 11:24 AM CDT [employer] DO LAB POCT ORDERABLES - DEVICE F inal Result Performing Organization Address [facility] Co de Phone Number ASHOK [address] [address] * XR Hip Right 2 or 3 Views W Pelvis (03/26/2024 10:10 AM CDT) Anatomical Region Laterality Modality Lower Extremities, Hip, Pelvis Right C omputed Radiography 03/26/2024 10:3 0 AM CDT Narrative 03/26/2024 10:40 AM CDT EXAM DESCRIPTION: XR HIP RIGHT 2 OR 3 VIEWS W PELVIS REASON FOR STUDY: Pre-Surgery or Post-Surgery Health Examination ?? Post op right hip replacement x 03/26/24. ? TECHNIQUE: Two views right hip. ??Single view pelvis. COMPARISON: Prior exam 03/15/2024 FINDINGS: Right hip: Patient is status post total right hip arthroplasty. ??No acute fracture of the osseous or prosthetic components. ??Expected postoperative soft tissue change. ?? Skin camille are seen as well as overlying tubing. Pelvis: Remainder of the pelvis demonstrates no acute fracture. ??Mild osteoarthritis left hip. ??Soft tissues are unremarkable otherwise. IMPRESSION: Patient is status post total right hip arthroplasty with no radiographic evidence of complication. THIS IS AN ELECTRONICALLY VERIFIED FINAL REPORT 03/26/2024 10:40 AM - Electronically signed by ??Sam ACOSTA D: ??03/26/2024 10:40 AM T: Report ID: [id number] Reading Location: ??[id number] Procedure Note Sam Hilton MD - 03/26/2024 EXAM DESCRIPTION: XR HIP RIGHT 2 OR 3 VIEWS W PELVIS REASON FOR STUDY: Pre-Surgery or Post-Surgery Health Examination Post op right hip replacement x 03/26/24. TECHNIQUE: Two views right hip. Single view pelvis. COMPARISON: Prior exam 03/15/2024 FINDINGS: Right hip: Patient is status post total right hip arthroplasty. No acute fracture ofthe osseous or prosthetic components. Expected postoperative soft tissuechange. Skin camille are seen as well as overlying tubing. Pelvis: Remainder of the pelvis demonstrates no acute fracture. Mildosteoarthritis left hip. Soft tissues are unremarkable otherwise. IMPRESSION: Patient is status post total right hip arthroplasty with no radiographic evidence of complication. THIS IS AN ELECTRONICALLY VERIFIED FINAL REPORT 03/26/2024 10:40 AM - Electronically signed by Sam ACOSTA T: Report ID: [id number] Reading Location: [id number] Davie BARRY IMG XR PROCEDURES Final Result * POCT glucose (03/26/2024 10:03 AM CDT) Glucose, POC 136 70 - 199 mg/dL Blood 03/26/2024 10:0 3 AM CDT 03/26/2024 10:03 AM CDT Newtonadair Moisés DO LAB POCT ORDERABLES - DEVICE F inal Result Performing Organization Address [facility] Co de Phone Number ASHOK [address] [facility] Department [place] [address] * FL Fluoroscopy < 1 Hour (03/26/2024 9:10 AM CDT) Narrative LARAEladioFUADNIALL_MHB_MHE - 03/26/2024 9:13 AM CDT The images from this study are not interpreted by Radiology. ??Please refer to the physician's procedure / OR operative note. Lacy Curiel DO IMG FLUOROSCOPY PROCEDURES Fin al Result Performing Organization Address [facility] de Phone Number [email or web address] * WV AN ELECTIVE ENDOTRACHEAL AIRWAY, WV AN PROCEDURE PLACEHOLDER (03/26/2024 8:01 AM CDT) Narrative Mehdi Coyne CRNA - 03/26/2024 8:01 AM CDT Mehdi Coyne CRNA ? 03/26/2024 ??8:02 AM Airway Patient location: OR Urgency: elective Indications for airway management: anesthesia Difficult airway: no Staff: Placed by: DRAFTING INSTRUCTOR: Mehdi Coyne CRNA Emergent airway documentation: Risks and benefits discussed: yes Consent obtained: yes Consent given by: patient Airway prep: Preoxygenated: yes Patient position: sniffing Mask difficulty assessment: 1 - vent by mask Spontaneous ventilation during airway: absent Sedation level during airway: GA Final airway details: Final airway type: endotracheal airway Tube type: ETT ETT size: 7.0 mm Cuffed: yes Technique used for successful ETT placement: direct laryngoscopy Devices/Methods used in placement: stylet Insertion site: oral Blade type: Brianda Blade size: 3 Cormack-Lehane (direct): grade I - full view of glottis Cuff inflated with: air ETT to lips: 21 cm Placement verified by: CO2 detection Airway secured with: other Number of attempts: 1no Jordan Robb MD ANESTHESIA ORDERABLES Fi nal Result * ABO / Rh Confirmation Testing (03/26/2024 6:13 AM CDT) ABO/Rh Confirmation A Positive [facility] Blood 03/26/2024 6:13 AM CDT 03/26/2024 6:20 AM CDT [employer] Moisés DO LAB BLOOD ORDERABLES Final Res ult Performing Organization Address [facility] de Phone Number [address] [place] [address] MHB * POCT glucose (03/26/2024 6:11 AM CDT) Glucose, POC 110 70 - 199 mg/dL Blood 03/26/2024 6:11 AM CDT 03/26/2024 6:11 AM CDT Lacy Curiel DO LAB POCT ORDERABLES - DEVICE F inal Result Performing Organization Address [facility] de Phone Number [address] [place] [address] * XR Hip Right W Pelvis Min 2 To 3 Views (03/15/2024 1:35 PM CDT) Anatomical Region Laterality Modality Lower Extremities, Hip, Pelvis Right C omputed Radiography 03/18/2024 4:24 AM CDT Narrative 03/18/2024 4:26 AM CDT EXAM DESCRIPTION: XR HIP RIGHT 2 OR 3 VIEWS W PELVIS REASON FOR STUDY: Pre-operative Exam ?? Pain x 10 years, nki, preop ?? TECHNIQUE: 2 ??radiographic view(s) of the ??pelvis and right hip . COMPARISON: 05/13/2023 FINDINGS: BONES/JOINTS: There is no acute fracture, malalignment or osseous abnormality. Mild degenerative changes are seen of the right hip. SOFT TISSUES: Within normal limits. ?? IMPRESSION: No acute osseous abnormality. THIS IS AN ELECTRONICALLY VERIFIED FINAL REPORT 03/18/2024 4:26 AM - Electronically signed by ??Elias STACY: TAWANNA D: ??03/18/2024 4:26 AM T: ??03/18/2024 4:26 AM Report ID: [id number] Reading Location: ??[id number] Procedure Note Elias Lawson MD - 03/18/2024 EXAM DESCRIPTION: XR HIP RIGHT 2 OR 3 VIEWS W PELVIS REASON FOR STUDY: Pre-operative Exam Pain x 10 years, nki, preop TECHNIQUE: 2 radiographic view(s) of the pelvis and right hip . COMPARISON: 05/13/2023 FINDINGS: BONES/JOINTS: There is no acute fracture, malalignment orosseous abnormality. Mild degenerative changes are seen of the right hip. SOFT TISSUES: Within normal limits. IMPRESSION: No acute osseous abnormality. THIS IS AN ELECTRONICALLY VERIFIED FINAL REPORT 03/18/2024 4:26 AM - Electronically signed by Elias STACY: TAWANNA Report ID: [id number] Reading Location: [place] [address] Lacy Curiel DO IMG XR PROCEDURES Final Result * eGFR (03/13/2024 10:09 AM CDT) eGFR >90 >=60 mL/min/1. 73 m2 Comment: Interpretive Data Reference Interval Normal ?>/= 90 mL/min/1.73m2 Mildly decreased* ? 60 - 89 mL/min/1.73m2 Mildly to moderately decreased ?45 - 59 mL/min/1.73m2 Moderately to severely decreased ??30 - 44 mL/min/1.73m2 Severely decreased ?15 - 29 mL/min/1.73m2 Kidney Failure ?< 15 ??mL/min/1.73m2 *Relative to young adult level Estimated glomerular filtration rate is determined by the 2020 CKD-EPI equation recommended by the National Kidney Foundation (A Unifying Approach to GFR Estimation: Recommendations of the NKF-ASK Task Force on Reassessing the Inclusion of Race in Diagnosing Kidney Disease, JASN 202). The CKD-EPI equation should not be used for patients with unstable renal function and has not been validated in children and those over 70. Current interpretive data was last reviewed 2021. Blood 03/13/2024 10:0 9 AM CDT 03/13/2024 10:16 AM CDT us Lacy Curiel DO LAB BLOOD ORDERABLES Final Res ult [facility] [address] [facility] Department [place] [address] * Differential, auto (03/13/2024 10:09 AM CDT) Neutrophil abs 4.5 1.5 - 6.5 K/cumm Imm gran abs 0.0 0.0 - 0.1 K/cumm [facility] Lymphocyte abs 1.9 0.8 - 3.3 K/cumm [facility] Monocyte abs 0.5 0.2 - 0.8 K/cumm [facility] Eosinophil abs 0.4 0.0 - 0.5 K/cumm [facility] Basophil abs 0.1 0.0 - 0.1 K/cumm [facility] Neutrophil pct 61.1 % [facility] Comment: Interpretive Data Percent cell count reference ranges are not reported, since discordance with absolute values may lead to misinterpretation of CBC data. Current Interpretive Data was last revised on 2017. Imm gran pct 0.1 % [facility] Comment: Interpretive Data Percent cell count reference ranges are not reported, since discordance with absolute values may lead to misinterpretation of CBC data. Current Interpretive Data was last revised on 2017. Lymphocyte pct 26.0 % [facility] Comment: Interpretive Data Percent cell count reference ranges are not reported, since discordance with absolute values may lead to misinterpretation of CBC data. Current Interpretive Data was last revised on 2017. Monocyte pct 6.8 % [facility] Comment: Interpretive Data Percent cell count reference ranges are not reported, since discordance with absolute values may lead to misinterpretation of CBC data. Current Interpretive Data was last revised on 2017. Eosinophil pct 5.3 % [facility] Comment: Interpretive Data Percent cell count reference ranges are not reported, since discordance with absolute values may lead to misinterpretation of CBC data. Current Interpretive Data was last revised on 2017. Basophil pct 0.7 % [facility] Comment: Interpretive Data Percent cell count reference ranges are not reported, since discordance with absolute values may lead to misinterpretation of CBC data. Current Interpretive Data was last revised on 2017. Blood 03/13/2024 10:0 9 AM CDT 03/13/2024 10:16 AM CDT [employer] LAB BLOOD ORDERABLES Final Res ult Performing Organization Address [facility]/ZIP Co de Phone Number ASHOK [address] Department [place] [address] * Infection Prevention MRSA Only (Staphylococcus aureus) PCR Nasal (03/13/2024 10:09 AM CDT) PCR Scrn, Methicillin resistant Staphylococcus aureus (MRSA) Not Detected Not Detected Comment: Interpretive Data Testing performed using Nucleic Acid Amplification with the [employer] Xpert MRSA NxG Assay. This assay detects target DNA from mecA, mecC and the SCCmec insertion site of Staphylococcus aureus using Real-Time PCR and has been cleared by the FDA. Performance characteristics have been verified by the [facility]. Current Interpretive Data was last revised on 2023 Nasal 03/13/2024 10:0 9 AM CDT 03/13/2024 10:13 AM CDT [employer] LAB MICROBIOLOGY - GENERAL ORD ERABLES Final Result Performing Organization Address City/[facility]/ZIP Co de Phone Number [address] [place] [address] * (ABNORMAL) CBC with auto differential (03/13/2024 10:09 AM CDT) [facility] WBC 7.3 3.8 - 9.9 K/cumm Hgb 13.3 11.9 - 15.5 g/dL [facility] Hct 40.8 35.6 - 45.5 % [facility] Plt 180 150 - 400 K/cumm [facility] MPV 10.1 9.1 - 12.3 fL [facility] RBC 3.94 3.90 - 5.20 M/cumm [facility] MCV 103.6(H) 81.3 - 96.4 fL [facility] MCH 33.8(H) 27.1 - 33.3 pg [facility] MCHC 32.6 32.3 - 35.7 g/dL [facility] RDW CV 12.4 11.1 - 14.9 % [facility] RDW SD 47.6 35.7 - 48.1 fL [facility] NRBC abs 0.00 0.00 - 0.01 K/cumm [facility] Blood 03/13/2024 10:0 9 AM CDT 03/13/2024 10:16 AM CDT Lacy Curiel DO LAB BLOOD ORDERABLES Final Res ult [address] [address] * ABO/Rh (03/13/2024 10:09 AM CDT) [facility] ABO/Rh A Positive Blood 03/13/2024 10:0 9 AM CDT 03/13/2024 10:13 AM CDT Narrative [facility] - 03/13/2024 10:52 AM CDT Is this test being ordered in advance for a procedure?->Yes Expected date of procedure:->03/26/24 Has the patient been transfused in the past 3 months?->No Has the patient been in the past 3 months?->No [facility] LAB BLOOD BANK TEST ORDERABLES Final Result Performing Organization Address [facility] de Phone Number ASHOK [address] [place] [address] * Nicotine metabolite screen, urine (03/13/2024 10:09 AM CDT) Pathologist [facility] Nicotine, ur <5.0 <5.0 ng/mL [facility] Cotinine, ur <5.0 <5.0 ng/mL [facility] Anabasine ur <2.0 <2.0 ng/mL [facility] Comment: ADDITIONAL INFORMATION This test was developed and its performance characteristics determined by [facility] in a manner consistent with CLIA requirements. This test has not been cleared or approved by the U.S. Food and Drug Administration. Test Performed by: [facility] [address] [place] [address] Electric Mule Driver: John Mckee Ph.D.; CLIA# [id number] Nornicotine, ur <2.0 <2.0 ng/mL [facility] Urine 03/13/2024 10:0 9 AM CDT 03/13/2024 11:35 AM CDT [employer] LAB URINE ORDERABLES Final Res ult Performing Organization Address [facility] de Phone Number ASHOK [address] [facility] [place] [address] [facility] * Protime-INR (03/13/2024 10:09 AM CDT) Pathologist [facility] PT 12.7 12.0 - 14.6 sec INR 0.9 0.9 - 1.2 [facility] Comment: Ref Range High Interpretive data Oral anticoagulant therapeutic ranges: Venous thromboembolism prophylaxis or treatment: 2.0-3.0 CARDIOLOGY Standard range: 2.0-3.0 High-intensity range: 2.5-3.5 Refer to indication-specific guidelines for appropriate target ranges for prosthetic heart valve replacement. Current interpretive data was last revised on 2019. Blood 03/13/2024 10:0 9 AM CDT 03/13/2024 10:16 AM CDT [employer] LAB BLOOD ORDERABLES Final Res ult Performing Organization Address [facility] de Phone Number [address] [address] * Antibody screen (03/13/2024 10:09 AM CDT) [facility] Naman, indirect, Gel Interpretation Negative ABSC Blood 03/13/2024 10:0 9 AM CDT 03/13/2024 10:13 AM CDT Narrative [facility] - 03/13/2024 10:52 AM CDT Is this test being ordered in advance for a procedure?->Yes Expected date of procedure:->03/26/24 Has the patient been transfused in the past 3 months?->No Has the patient been in the past 3 months?->No [facility] BLOOD BANK TEST ORDERABLES Final Result Performing Organization Address [facility] de Phone Number [address] [address] * Comprehensive metabolic panel (03/13/2024 10:09 AM CDT) [facility] Sodium 135 135 - 145 mmol/L Potassium, pl 3.7 3.3 - 4.9 mmol/L [facility] Comment:Hemolyzed; Potassium value may be falsely elevated by as much as 1.0 mmol/L. Suggest redraw and reanalysis. Chloride 102 97 - 110 mmol/L [facility] CO2 23 22 - 32 mmol/L [facility] Anion gap 10 2 - 15 mmol/L [facility] BUN 23 6 - 25 mg/dL [facility] Creatinine 0.60 0.60 - 1.10 mg/dL [facility] Glucose 108 70 - 199 mg/dL [facility] Comment: Interpretive Data Fasting glucose >/= 126 mg/dl is diagnostic for diabetes. ?? Fasting is defined as no caloric intake for at least 8 hours. Fasting glucose between 100 mg/dl to 125 mg/dl is diagnostic of prediabetes. In a patient with classic symptoms of hyperglycemia or hyperglycemic crisis, a random glucose >/= 200 mg/dl is diagnostic for diabetes. In the absence of unequivocal hyperglycemia, results should be confirmed by repeat testing. The classification and Diagnosis of Diabetes Diabetes Care 2021; 46: S19-S40. Current interpretive data was last revised 2022. Calcium 10.3 8.5 - 10.3 mg/dL [facility] Bilirubin, total 0.3 0.1 - 1.2 mg/dL [facility] Protein, pl 6.6 6.5 - 8.5 g/dL [facility] Albumin 4.4 3.5 - 5.0 g/dL [facility] Alk phos 54 40 - 130 Units/L [facility] ALT 17 7 - 45 Units/L [facility] AST 23 10 - 45 Units/L [facility] Comment:Hemolyzed; result ma y be falsely elevated Blood 03/13/2024 10:0 9 AM CDT 03/13/2024 10:16 AM CDT us Lacy Curiel DO LAB BLOOD ORDERABLES Final Res ult [facility] [address] [facility] Department [place] [address] * ECG 12 lead (03/13/2024 9:52 AM CDT) Ventricular Rate EKG/Min 81 BPM [facility] Atrial Rate 81 BPM [facility] WV-Interval (MSEC) 144 ms [facility] QRS-Interval (MSEC) 80 ms [facility] QT-Interval (MSEC) 392 ms [facility] QTc 455 ms [facility] P Evans 70 degrees [facility] R Evans 32 degrees [facility] T Evans 39 degrees [facility] Diagnosis Normal sinus rhythm Normal ECG No previous ECGs available Confirmed by SULTAN MANRIQUE M.D. ([id number]) on 03/13/2024 8:10:20 PM [facility] 03/13/2024 9:52 AM CDT 03/13/2024 8:10 PM CDT us Mona Fishman NP ECG ORDERABLES Final Resu lt [facility] * Dexa Axial Skeleton Bone Density 1 or 2 Site (03/19/2020 12:14 PM CDT) Anatomical Region Laterality Modality Body N/A Other 03/19/2020 12:2 2 PM CDT Impressions 03/19/2020 12:27 PM CDT Bone mineral density of the spine and left hip falls within normal range. In comparison to previous examination there is a decrease bone mineral density of the spine and left hip. Electronically signed by: Camille Rodriges M.D. Narrative 03/19/2020 12:27 PM CDT Examination: Bone densitometry of the lumbar spine and the left hip Order Date: 03/19/2020 12:30 PM ? History: Osteoporosis screening. Comparison: ??01/12/2018 ?? Findings: The bone densitometry of the L1-L4 region, the left femoral neck and the total left hip was calculated using dual-energy x-ray absorptiometry. ? Summary: Bone mineral density (BMD) of the lumbar spine (L1-4): ??T-score 0.3; 103% of normal ? Bone mineral density (BMD) of the total left hip: ??T-score -0.6; ??92% of normal ?? Bone mineral density (BMD) of the left femoral neck: ??T-score -0.4; 95% of normal ? Bone mineral density of the spine and left hip falls within normal range. ??In comparison to previous examination there is -3.6% change in the spine findings and -3.5% change in the left hip findings suggestive of decrease bone mineral density. Procedure Note Camille Rodriges MD - 03/19/2020 Examination: Bone densitometry of the lumbar spine and the left hip Order Date: 03/19/2020 12:30 PM History: Osteoporosis screening. Comparison: 01/12/2018 Findings: The bone densitometry of the L1-L4 region, the left femoral neck and the total left hip was calculated using dual-energy x-ray absorptiometry. Summary: Bone mineral density (BMD) of the lumbar spine (L1-4): T-score 0.3; 103% of normal Bone mineral density (BMD) of the total left hip: T-score -0.6; 92% of normal Bone mineral density (BMD) of the left femoral neck: T-score -0.4; 95% of normal Bone mineral density of the spine and left hip falls within normal range. In comparison to previous examination there is -3.6% change in the spine findings and -3.5% change in the left hip findings suggestive of decrease bone mineral density. IMPRESSION: Bone mineral density of the spine and left hip falls within normal range. In comparison to previous examination there is a decrease bone mineral density of the spine and left hip. Electronically signed by: Camille Rodriges M.D. Freddie Stanley [facility] DXA PROCEDURES Final Result * Screening Mammogram Bilateral W Az (03/19/2020 11:32 AM CDT) Anatomical Region Laterality Modality Breast Bilateral Mammography 03/19/2020 1:54 PM CDT Impressions 03/19/2020 2:08 PM CDT BI-RADS Category 2, benign. ?? Annual screening mammography. ?? Electronically signed by: Camille Rodriges M.D. Narrative 03/19/2020 2:08 PM CDT Examination: Bilateral screening digital mammography with CAD and tomosynthesis Order Date: 03/19/2020 11:45 AM History: Routine screening Comparison:02/05/2019, 01/12/2018, 11/04/2016, 11/08/2014, 04/22/2014, 04/18/2014, 02/08/2013, 03/22/2011 Findings: Craniocaudal and mediolateral oblique views of both breasts were obtained utilizing full field digital mammography. The breasts are heterogeneously dense which may obscure small masses. Bilateral stable scattered benign calcifications are seen. The parenchymal pattern is stable. There is no suspicious dominant mass, clustered microcalcification or architectural distortion. This examination has been subjected to R2/CAD analysis. Freddie Schwabk IMG MAMMO PROCEDURES Final Resul t from Last 3 Months or Most Recently Relevant to Health Maintenance Insurance [employer] [facility] Address: [place] [id number] [place] [id number] [facility] Address: [facility] [address] [place] [address] [facility] [facility] Address: [address] [address] [place] [address] [employer]ARE [employer] Advance Directives For more information, please contact: [phone] * Full Code (Latest Code Status on File) Date Activated Date Inactivated Comments 03/26/2024 11:21 AM 03/27/2024 4:55 PM Care Teams Hypo Splasher Relationship Specialty Start Date End Date Baldo Bower MD PCP - General Family Practice 11/03/23 Lacy Curiel DO [address] [address] Consulting Physician Orthopedic Surgery 03/27/24
--- OUTSIDE RECORDS SUMMARY | 2024-06-12 07:39 | XMS_ITS | Encounter Summary ---
Author Organization [facility] Healthcare Address [address] [place] [address] Care Team Providers Care Assistant Customer Service Manager Name Role Phone Baldo Bower MD Primary Care Provider [phone] Lacy Curiel DO Unavailable [phone] Reason for Referral * Diagnostic Imaging (Routine) - Closed Specialty Diagnoses / Procedures Referred By Shari crenshaw Referred To Contact Diagnoses Status post joint replacement Procedures XR Hip Right W Pelvis Min 2 To 3 Views Lacy Curiel DO [address] [place] [address] [place] [address] Phone: tel: fax: [address] [phone] Referral ID Status Reason Start Date Expiration Date Visits Re quested Visits Authorized [id number] Closed 05/07/2024 06/06/2025 1 1 D CHIEF Reason for Visit * Reason Comments Post-op Encounter Details Date Type Department Care Team (Late st Contact Info) Description 05/08/2024 8:45 AM GUARD CHIEF Office Visit [facility] Orthopedics and Sports Medicine [address] [place] [phone] Lacy Curiel DO [address] [place] [address] Aftercare following right hip joint replacement surgery (Primary Dx); Status post joint replacement Social History Tobacco Use Types Packs/Day Years Used Date Smoking Tobacco: Former Cigarettes 1.5 18 S tarted: 1986 Passive Smoke Exposure: Past Smokeless Tobacco: Never [facility] Utilities Answer Date Recorded In the past 12 months has th e electric, gas, oil, or water company threatened to shut off services in your [...] often do you attend chur ch or synagogue services? Never 03/26/2024 Do you belong to any clubs o r organizations such as bahai groups, unions, fraternal or athletic groups, or [...] any time in the past 12 m [place], were you homeless or living in a m[facility]p (including now)? No 03/26/2024 Personal Safety Answer Date Recorded Have you ever been in or are you currently in a harmful physical or emotional relationship or is someone making you feel afraid or unsafe? Denies 03/26/2024 Comments Unknown Sex and Gender Information Value Date Recorded Sex Assigned at Not on file Legal Sex Female 1:32 PM GUARD CHIEF Gender Identity Not on file Sexual Orientation Not on file documented as of this encounter Progress Notes * Lacy Curile, - 05/08/2024 8:45 AM CST Images from the original note were not included. Postop Visit CHIEF COMPLAINT She had concerns including Post-op of the Right Hip. HISTORY OF PRESENT ILLNESS Isela Kendall is a 74 y.o. 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 Patient is doing very well that has minimal pain at rest and 2/10 pain when riding in the car. Patient has been taking Tylenol and meloxicam for pain relief and has not perform formal physical therapy but has been doing therapy exercises at home that are self guided. MEDICATIONS She has a current medication list which includes the following prescription(s): acetaminophen er, aspirin, atenolol, accu-chek guide l1-l2 ctrl korin, accu-chek guide test strips, blood-glucose meter, calcium carbonate-vitamin d3, cholecalciferol, cholestyramine light, docusate sodium, doxycycline, ferrous sulfate, fluticasone propionate, glucosamine sulfate, glucosamine-chondroitin, hydrocodone-acetaminophen, lancets, lancing device, lisinopril, loratadine, lorazepam, meloxicam, metformin, ondansetron odt, pantoprazole dr, rosuvastatin, UNABLE TO FIND, UNABLE TO FIND, valacyclovir, and vitamins a,c,q-qrga-mlabnw. ALLERGIES She is allergic to sulfa (sulfonamide antibiotics), keflex [cephalexin], and penicillins. REVIEW OF SYSTEMS Constitutional: Positive for activity change Musculoskeletal: Positive for arthralgias PHYSICAL EXAM There were no vitals taken for this visit. Right hip exam: Well-healing anterior incision with camille removed, no sign of erythema or infection present No pain with internal and external rotation of the hip and some mild pain over the anterior thigh Sensation intact distally, 2+ dorsalis pedis pulse. REVIEW OF X-RAYS/STUDIES/LABS Multiple x-rays including AP pelvis frog-leg lateral of the right hip performed today and independently interpreted by me shows maintained alignment of total hip arthroplasty with no sign of hardwarefailure, fracture or dislocation present. Assessment/Plan: 1. Aftercare following right hip joint replacement surgery (Primary) 2. Status post joint replacement - XR Hip Right W Pelvis Min 2 To 3 Views; Future Isela is doing very well postoperatively and we discussed the utility of formal physical therapy but as her strength is improving we will hold off on ordering therapy at this time. I discussed I would be happy to order therapy in the future if she wishes but she was doing a very good job with self guided exercises. I would like her to continue utilizing Tylenol and meloxicam as needed for pain relief and I would like see her back in 6 weeks with repeat x- rays with JHONNY Hawkins. Lacy Curiel DO 05/08/2024 D CHIEF documented in this encounter Plan of Treatment Not on file documented as of this encounter Results * XR Hip Right W Pelvis Min 2 To 3 Views (05/08/2024 8:30 AM GUARD CHIEF) Anatomical Region Laterality Modality Lower Extremities, Hip, Pelvis Right C omputed Radiography 05/11/2024 8:55 AM GUARD CHIEF Narrative 05/11/2024 9:03 AM GUARD CHIEF EXAM DESCRIPTION: XR HIP RIGHT 2 OR [...] AM T: ??05/11/2024 9:03 AM Report ID: [id number] Reading Location: ??[id number] Procedure Note Sam Rice MD - 05/11/2024 [...] Sam Rice M.D. MF: [id number] Report ID: [id number] Reading Location: [id number] Lacy Curiel DO IMG XR PROCEDURES Final Result documented in this encounter Visit Diagnoses Diagnosis Aftercare following right hip joint replacement surgery- Primary Status post joint replacement Unspecified joint replacement by other means Status post joint replacement Unspecified joint replacement by other means documented in this encounter Historical Medications * This list may reflect changes made after this encounter. lancing device misc SIMPLE DIAGNOSTICS LANCING DEV 05/25/2018 lancets 30 gauge misc PHARMACIST CHOICE LANCETS 05/25/2018 glucosamine sulfate 500 mg capsule GLUCOSAMINE CAPSULE 09/06/2018 blood glucose control high,low (Accu-Chek Guide L1-L2 Ctrl Korin) solution by intravitreal route 05/25/2018 blood glucose diagnostic (Accu-Chek Guide test strips) strip by intravitreal route 05/25/2018 blood-glucose meter (Accu-Chek Guide Glucose Meter) [facility] ACCU-CHEK GUIDE W/DEVICE KIT 05/25/2018 calcium carbonate-vitami n D3 (Calcium 500 + D) 1,250 mg (500 mg elemental)-400 unit chewable tablet CALCIUM + D TABLET 09/06/2018 added in this encounter Care Teams Assistant Customer Service Manager Relationship Specialty Start Date End Date Baldo Bower MD PCP - General Family Practice 11/03/23 Lacy Curiel DO [address] [facility] [place] [address] Consulting Physician Orthopedic Surgery 03/27/24 documented as of this encounter
--- OUTSIDE RECORDS SUMMARY | 2024-06-12 07:39 | XMS_ITS | Encounter Summary ---
Author Organization [facility] Address [address] [place] [address] Care Team Providers Care Procurement Representative Name Role Phone Baldo Bower MD Primary Care Provider [phone] Lacy Curiel DO Unavailable [phone] Reason for Referral * Diagnostic Imaging (Routine) - Closed Specialty Diagnoses / Procedures Referred By Shari crenshaw Referred To Contact Diagnoses Status post joint replacement Procedures XR Hip Right W Pelvis Min 2 To 3 Views Lacy Curiel DO [address] [place] [address] [place] [address] Phone: tel: fax: [address] [phone] Referral ID Status Reason Start Date Expiration Date Visits Re quested Visits Authorized [id number] Closed 05/07/2024 06/06/2025 1 1 CLERK Reason for Visit * Diagnostic Imaging (Routine) - Closed Specialty Diagnoses / Procedures Referred By Shari crenshaw Referred To Contact Diagnoses Status post joint replacement Procedures XR Hip Right W Pelvis Min 2 To 3 Views Lacy Curiel DO [address] [place] [address] [place] [address] Phone: tel: fax: [address] [phone] Referral ID Status Reason Start Date Expiration Date Visits Re quested Visits Authorized [id number] Closed 05/07/2024 06/06/2025 1 1 Encounter Details Date Type Department Care Team (Latest Contact Info) Description 05/08/2024 7:45 AM ICU CLERK - 05/08/2024 11:59 PM ICU CLERK Hospital Encounter [facility] 1 DIAG IMG [address] [place] [address] Status post joint replacement Discharge Disposition: Discharge to home or self care Social History Tobacco Use Types Packs/Day Years Used Date Smoking Tobacco: Former Cigarettes 1.5 18 S tarted: 1986 Passive Smoke Exposure: Past Smokeless Tobacco: Never [facility] Utilities Answer Date Recorded In the past 12 months has [employer] e electric, gas, oil, or water company [...] often do you attend chur ch or restorationist services? Never 03/26/2024 Do you belong to any clubs o r organizations such as confucianism groups, unions, fraternal or athletic groups, or [...] any time in the past 12 m [facility], were you homeless or living in [...] on file Legal Sex Female 1:32 PM ICU CLERK Gender Identity Not on file Sexual Orientation [...] 8 blood-glucose meter (Accu-Chek Guide Glucose Meter) misc ACCU-CHEK GUIDE W/DEVICE KIT 8 calcium carbonate-vitamin [...] doses 21 tablet 4 lancets 30 gauge [facility] PHARMACIST CHOICE LANCETS 8 lancing device [facility] SIMPLE DIAGNOSTICS LANCING DEV 8 lisinopriL (PRINIVIL,ZESTRIL) [...] needed for nausea or vomiting [address] (PROTONIX) 40 mg EC tablet Take 1 tablet (40 mg total) by mouth 2 (two) times a day rosuvastatin (CRESTOR) 20 mg tablet Take 1 tablet (20 mg total) by mouth nightly UNABLE TO FIND Take 1 each by mouth 2 (two) times a day Med Name: MegaRed [place]-3 Krill oil UNABLE TO FIND Take 1 each by mouth daily Med Name: Qunol ultra CoQ10 100 mg valACYclovir (VALTREX) 500 mg tabletIndications:C hronic Suppression,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, nose and mouth Take 1 tablet (500 mg total) by mouth daily vitamins A,C,B-iesm-xoonxc (ICAPS) 4,296 mcg-226 mg-90 mg capsule Take [...] Read Routine (OP Routine) 05/08/2024 8:30 AM ICU CLERK Status post joint replacement documented in this encounter Results * XR Hip Right W Pelvis Min 2 To 3 Views (05/08/2024 8:30 AM ICU CLERK) Anatomical Region Laterality Modality Lower Extremities, Hip, Pelvis Right C omputed Radiography 05/11/2024 8:55 AM ICU CLERK Narrative 05/11/2024 9:03 AM ICU CLERK EXAM DESCRIPTION: XR HIP RIGHT 2 OR [...] AM T: ??05/11/2024 9:03 AM Report ID: [id number] Reading Location: ??[id number] Procedure Note Sam Rice MD - 05/11/2024 [...] Sam Rice M.D. MF: TAMARA Report ID: [id number] Reading Location: [id number] Lacy Curiel DO IMG XR PROCEDURES Final Result documented in this encounter Visit Diagnoses Diagnosis Status post joint replacement Unspecified joint replacement by other means documented in this encounter Care Teams Procurement Representative Relationship Specialty Start Date End Date Baldo Bower MD PCP - General Family Practice 11/03/23 Lacy Curiel DO [address] [place] [address] Consulting Physician Orthopedic Surgery 03/27/24 documented as of this encounter
--- OUTSIDE RECORDS SUMMARY | 2024-06-12 07:39 | XMS_ITS | Clinical Summary ---
Author Organization [facility] Address [address] [place] [address] Care Team Providers Care Treatment Technician Name Role Phone Baldo Bower MD Primary Care Provider [phone] Marlon Curiellatishaadair DO Unavailable [phone] Allergies Active Allergy Reactions Criticality Noted Date Comments Cephalexin Hives Medium 03/13/2024 Happened in 1974. Does not know if she has ever had Ancef. Penicillins Other (See comments) Low 12/01/2016 Massive hives, choked up, spent 36 hours in the ED , facial swelling, throat swelling, skin turned red. 1975 Sulfa (Sulfonamide Antibiotics) Shortness of breath High [...] 2 (two) times a day Med Name: [facility]3 Krill oil Active meloxicam (MOBIC) 7.5 mg [...] 2 (two) times a day Active vitamins A,C,J-qqqk-ltuenj (ICAPS) 4,296 mcg-226 mg-90 mg capsule Take [...] Active blood-glucose meter (Accu-Chek Guide Glucose Meter) [facility] ACCU-CHEK GUIDE W/DEVICE KIT 05/25/20 18 Active blood glucose diagnostic (Accu-Chek Guide test strips) strip by intravitreal route 05/25/20 18 Active blood glucose control high,low (Accu-Chek Guide L1-L2 Ctrl Nadja) solution by intravitreal route 05/25/20 18 Active glucosamine sulfate 500 mg capsule GLUCOSAMINE CAPSULE 09/07/19 19 Active lancets 30 gauge [facility] PHARMACIST CHOICE LANCETS 05/25/20 18 Active lancing device [facility] SIMPLE DIAGNOSTICS LANCING DEV 05/25/20 18 Active Active Problems Problem Noted Date Diagnosed Date Primary osteoarthritis of right hip 02/23/2024 Chest pain 09/06/2018 Diabetes mellitus 09/06/2018 Dyslipidemia 09/06/2018 Hypertension 09/06/2018 Tobacco dependence syndrome 09/06/2018 Abnormal mammogram 11/23/2016 Mass of breast 11/23/2016 Disorder of sacrococcygeal spine 03/19/2016 Overview (09/03/2016): Sacrococcygeal disorders, not elsewhere classified Piriformis syndrome 03/19/2016 Overview (09/03/2016): Piriformis syndrome, right Convulsions Encounters Date Type Department Care Team Description 05/08/2024 8:45 AM WINEMAKER Office Visit [facility] Medical Group Orthopedics and Sports Medicine [address] [place] [phone] Lacy Curiel DO Aftercare following right hip joint replacement surgery (Primary Dx); Status post joint replacement 05/08/2024 7:45 AM WINEMAKER - 05/08/2024 11:59 PM WINEMAKER Hospital Encounter [facility] MOB 1 DIAG IMG [address] [place] [address] Status post joint replacement Discharge Disposition: Discharge to home or self care 04/10/2024 1:11 PM WINEMAKER - 04/10/2024 11:59 PM WINEMAKER Hospital Encounter [facility] MOB 1 DIAG IMG [address] [place] [address] Primary osteoarthritis of right hip Discharge Disposition: Discharge to home or self care 04/10/2024 1:00 PM WINEMAKER Office Visit [facility] Medical Group Orthopedics and Sports Medicine [address] [place] [phone] Davie Hawkins PA Primary osteoarthritis of right hip (Primary Dx); Aftercare following right hip joint replacement surgery 03/26/2024 7:30 AM CDT - 03/26/2024 10:30 AM CDT Surgery [facility] [place] [address] [place] [address] Lacy Curiel DO ANTERIOR APPROACH, RIGHT TOTAL HIP ARTHROPLASTY 03/26/2024 7:26 AM CDT Anesthesia Event [address] [address] Jordan Robb MD Marshall, Lauren N., AIR SAW OPERATOR 03/26/2024 5:13 AM CDT - 03/27/2024 12:54 PM CDT Hospital Encounter [address] [address] Lacy Curiel DO Primary osteoarthritis of right hip [M16.11] (Primary Dx); Aftercare following right hip joint replacement surgery Discharge Disposition: Discharge to home or self care 03/15/2024 1:30 PM CDT - 03/15/2024 11:59 PM CDT Hospital Encounter [facility] 1 DIAG IMG [address] [place] [address] Pre-operative exam Discharge Disposition: Discharge to home or self care 03/15/2024 1:30 PM CDT Office Visit [facility] Medical [facility] Orthopedics and Sports Medicine [address] [place] [phone] Lacy Curiel DO Pre-operative exam (Primary Dx); Primary osteoarthritis of right hip 03/15/2024 Plan of Care Documentation [facility] OP Occup Therapy [address] [place] [address] 03/13/2024 1:00 PM CDT Therapy [facility] OP Occup Therapy [address] [place] [address] Devika Souza OT Primary osteoarthritis of right hip (Primary Dx) 03/13/2024 10:00 AM CDT Pre-Admission Testing [facility] PreAdmission Testing [address] [place] [phone] Preop examination (Primary Dx); Primary osteoarthritis of right hip; Preop testing; Pain in other specified joint 03/13/[address] [address] Huma Shepherd, FATMATA from Last 3 Months Surgical History Surgery Date Site/Laterality Comments TONSILLECTOMY as a child FLUORO GUIDED INJECTION HIP RIGHT 06/01/2023 Right FLUORO GUIDED INJECTION HIP RIGHT 11/10/2023 Right EYE SURGERY Bilateral cataracts OOPHERECTOMY 1986 CHOLECYSTECTOMY HYSTERECTOMY and 1 ovary removed COLONOSCOPY 2019 Medical History Medical History Date Comments Hypercholesterolemia High choles terol; Comments: KSA 05/13/2015 - Hypertension Hypertension Gastric reflux Cancer (CMS/HCC) (HCC) basal americo l left leg 2010's Diabetes mellitus (HCC) Osteoarthritis Skin cancer, basal cell 2013 LEFT THI GH History of seizures x 1 2018; al l testing negative; never on meds Herpes eyes, nose, 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; takes valacyclovir daily for Macular degeneration Wears glasses RLS (restless legs syndrome) History of pneumonia 1980; hospi talized for 2 weeks History of COVID-19 not hospital ized Allergic rhinitis History of vertigo Arthritis Dental crowns present several Dental bridge present top right Tobacco dependence syndrome 09/06/2018 Family History Medical History Relation Name Comments Prostate cancer Brother Family histo ry of malignant neoplasm of prostate - (Added by TW Conv) Asthma Father Asthma; Alzheimer's disease Mother Alzheime r's disease; Heart disease Mother Cardiovascular disease; Rheum arthritis Mother Rheumatoid a rthritis; Breast cancer Mother's Sister 1 Breast cancer Mother's Sister 2 Parkinsonism Other Family history of Parkinson's disease; Endometrial cancer Neg Hx Ovarian cancer Neg Hx Thyroid cancer Neg Hx Relation Name Status Comments Brother Father Mother Mother's Sister 1 (Age 45) Mother's Sister 2 (Age 53) Other Social History Tobacco Use Types Packs/Day Years Used Date Smoking Tobacco: Former Cigarettes 1.5 18 S tarted: 1986 Passive Smoke Exposure: Past Smokeless Tobacco: Never Tobacco Cessation:Counseling Given: Not Answered [facility] Utilities Answer Date Recorded In the past 12 months has [employer], gas, oil, or water company threatened to [...] often do you attend chur ch or scientologist services? Never 03/26/2024 Do you belong to any clubs o r organizations such as sikh groups, unions, fraternal or athletic groups, or [...] were you homeless or living in a [place] health care facility (including now)? No 03/26/2024 Personal Safety Answer Date Recorded Have you ever been in or are you currently in a harmful physical or emotional relationship or is someone making you feel afraid or unsafe? Denies 03/26/2024 Comments Unknown Sex and Gender Information Value Date Recorded Sex Assigned at Not on file Legal Sex Female 1:32 PM WINEMAKER Gender Identity Not on file Sexual Orientation Not on file Obstetrics History Para Term AB IAB SAB Ectopic Multiple Livin g Live Births 2 2 2 Date Outcome GA Total Labor Labor/2nd/3rd Weight Sex Type Anes PTL Adrianne A1 A5 Name Clin Term Term Last Filed Vital Signs Vital Sign Reading [...] 03/26/2024 12:25 PM CDT Plan of Treatment Health Maintenance Due Date Last Done Comments Albumin Creatinine Ratio, Urine 1952 Colon Cancer Screening-Colonoscopy 1952 Depression Screening 1952 Hemoglobin A1C 1952 Hepatitis C Screening 1952 Dilated Eye Exam 1952 Foot Exam 1952 Hepatitis B Screening 1970 Lipid Panel 08/09/2008 08/10/2007, 09/01/2005 Well Visit 65+ 2017 Breast Cancer Screening-Mammogram 03/19/2021 03/19/2020, 02/05/2019, 01/12/2018, Additional history exists Osteoporosis Screening-Bone Density Scan 03/19/2022 03/19/2020, 01/12/2018 Influenza Vaccine (#1) 2024 , 04/05/2019, 03/01/2018, Additional history exists Fall Risk Assessment 03/27/2025 03/27/2024 eGFR 03/27/2025 03/27/2024, 03/13/2024 DTaP/Tdap/Td Vaccine (2 - Td or Tdap) 06/05/2027 06/05/2017 Zoster Vaccine Completed 06/27/2018, 03/01/2018 Pneumococcal vaccine 65+ Completed 02/19/2020, 11/2017 Medical Devices Implanted Type Area Intel Analyst Device Identifier Shelf Expiration Date Model / Serial / Lot [employer] Shell Acetabular Emsys Shl 3hole 48 [id number] - [id number] Implanted:Qty: 1 on 03/26/2024 by Lacy Curiel DO at [facility] Right: Hip [employer] [id number] 01/27/2034 [id number] / / [id number] [employer] Liner Acetabular Emsys Lnr Aox N 48x36 [id number] - [id number] Implanted:Qty: 1 on 03/26/2024 by Lacy Curiel DO at [facility] Right: Hip [employer] [id number] 12/27/2028 [id number] / / [id number] [employer] Meadow 6.5mm 20mm Acetabular Cancellous Screw Bone Sterile 1217-- - [id number] Implanted:Qty: 1 on 03/26/2024 by Lacy Curiel DO at [facility] Right: Hip [employer] [id number] 11/26/2033 1217--500 / / [id number] [employer] Meadow 6.5mm 25mm Acetabular Cancellous Screw Bone Sterile 121500 - [id number] Implanted:Qty: 1 on 03/26/2024 by Lacy Curiel DO at [facility] Right: Hip [employer] [id number] 12/27/2033500 / / [id number] [employer] Stem Femoral Hip Porous Proximal Collared Actis 95mm Titanium Standard Offset Size 0 [id number] - [id number] Implanted:Qty: 1 on 03/26/2024 by Lacy Curiel DO at [facility] Right: Hip [employer] [id number] 09/26/2032 [id number] / / [id number] [employer] Articul/Alpesh 36mm Cementless Hip +5mm 12/14 Taper Head Femoral Latex Free [id number] - [id number] Implanted:Qty: 1 on 03/26/2024 by Lacy Curiel DO at [facility] Right: Hip [employer] [id number] 11/26/2028 [id number] / / [id number] Procedures Procedure Name Priority Date/Time Associated Diagnosis Comments XR HIP RIGHT W PELVIS 2 OR 3 VIEWS Schedule Routine, Read Routine (OP Routine) 05/08/2024 8:30 AM WINEMAKER Status post joint replacement XR HIP RIGHT W PELVIS 2 OR 3 VIEWS Schedule Routine, Read Routine (OP Routine) 04/10/2024 1:25 PM WINEMAKER Primary osteoarthritis of right hip POCT GLUCOSE [...] HOUR IP Routine 03/26/2024 9:10 AM CDT FL AN PROCEDURE PLACEHOLDER Routine 03/26/2024 8:01 AM CDT FL AN ELECTIVE ENDOTRACHEAL AIRWAY Routine 03/26/2024 8:01 [...] 2 To 3 Views (05/08/2024 8:30 AM WINEMAKER) Anatomical Region Laterality Modality Lower Extremities, Hip, Pelvis Right C omputed Radiography 05/11/2024 8:55 AM WINEMAKER Narrative 05/11/2024 9:03 AM WINEMAKER EXAM DESCRIPTION: XR HIP RIGHT 2 OR [...] AM T: ??05/11/2024 9:03 AM Report ID: [id number] Reading Location: ??[id number] Procedure Note Sam Rice MD - 05/11/2024 [...] 9:03 AM - Electronically signed by Sam MCDONALD: TAMARA Report ID: [id number] Reading Location: [id number] Lacy Curiel DO IMG XR PROCEDURES Final Result * XR Hip Right 2 or 3 Views W Pelvis (04/10/2024 1:25 PM WINEMAKER) Anatomical Region Laterality Modality Lower Extremities, Hip, Pelvis Right C omputed Radiography 04/13/2024 12:3 7 PM WINEMAKER Narrative 04/13/2024 12:38 PM WINEMAKER EXAM DESCRIPTION: XR HIP RIGHT 2 OR [...] PM T: ??04/13/2024 12:38 PM Report ID: [id number] Reading Location: ??[id number] Procedure Note Sam Rice MD - 04/13/2024 [...] Sam Rice M.D. MF: TAMARA Report ID: [id number] Reading Location: [id number] Davie BARRY IMG XR PROCEDURES Final Result * POCT glucose (03/27/2024 12:15 PM CDT) Glucose, POC 125 70 - 199 mg/dL Glucose comment 1 RN/MD Notified [facility] Blood 03/27/2024 12:1 5 PM CDT 03/27/2024 12:15 PM CDT Lacy Curiel DO LAB POCT ORDERABLES - DEVICE F inal Result Performing Organization Address [facility] de Phone Number [id number] [place] [address] * POCT glucose (03/27/2024 7:59 AM CDT) Glucose, POC 105 70 - 199 mg/dL Glucose comment 1 RN/MD Notified [facility] Blood 03/27/2024 7:59 AM CDT 03/27/2024 7:59 AM CDT Lacy Curiel DO LAB POCT ORDERABLES - DEVICE F inal Result Performing Organization Address [facility] de Phone Number [address] [place] [address] * eGFR (03/27/2024 5:32 AM CDT) eGFR >90 >=60 mL/min/1. 73 [...] 5:32 AM CDT 03/27/2024 6:16 AM CDT Daive BARRY LAB BLOOD ORDERABLES Final Resul t [facility] [address] [facility] [place], [place] [id number] * (ABNORMAL) Differential, auto (03/27/2024 5:32 AM CDT) Neutrophil abs 8.6(H) 1.5 - 6.5 K/cumm Imm gran abs 0.0 0.0 - 0.1 K/cumm [facility] Lymphocyte abs 3.4(H) 0.8 - 3.3 K/cumm [facility] Monocyte abs 1.2(H) 0.2 - 0.8 K/cumm [facility] Eosinophil abs 0.1 0.0 - 0.5 K/cumm [facility] Basophil abs 0.0 0.0 - 0.1 K/cumm [facility] Neutrophil pct 64.6 % [facility] Comment: Interpretive Data Percent cell count reference ranges are not reported, since discordance with absolute values may lead to misinterpretation of CBC data. Current Interpretive Data was last revised on 2017. Imm gran pct 0.3 % [facility] Comment: Interpretive Data Percent cell count reference ranges are not reported, since discordance with absolute values may lead to misinterpretation of CBC data. Current Interpretive Data was last revised on 2017. Lymphocyte pct 25.4 % [facility] Comment: Interpretive Data Percent cell count reference ranges are not reported, since discordance with absolute values may lead to misinterpretation of CBC data. Current Interpretive Data was last revised on 2017. Monocyte pct 8.8 % [facility] Comment: Interpretive Data Percent cell count reference ranges are not reported, since discordance with absolute values may lead to misinterpretation of CBC data. Current Interpretive Data was last revised on 2017. Eosinophil pct 0.7 % [facility] Comment: Interpretive Data Percent cell count reference ranges are not reported, since discordance with absolute values may lead to misinterpretation of CBC data. Current Interpretive Data was last revised on 2017. Basophil pct 0.2 % [facility] Comment: Interpretive Data Percent cell count reference ranges are not reported, since discordance with absolute values may lead to misinterpretation of CBC data. Current Interpretive Data was last revised on 2017. Blood 03/27/2024 5:32 AM CDT 03/27/2024 6:16 AM CDT Davie BARRY LAB BLOOD ORDERABLES Final Resul t [facility] [address] [facility] [place] [address] * (ABNORMAL) CBC with auto differential (03/27/2024 5:32 AM CDT) WBC 13.3(H) 3.8 - 9.9 K/cumm Hgb 9.7(L) 11.9 - 15.5 g/dL [facility] Hct 28.6(L) 35.6 - 45.5 % [facility] Plt 174 150 - 400 K/cumm [facility] MPV 10.3 9.1 - 12.3 fL [facility] RBC 2.83(L) 3.90 - 5.20 M/cumm [facility] MCV 101.1(H) 81.3 - 96.4 fL [facility] MCH 34.3(H) 27.1 - 33.3 pg [facility] MCHC 33.9 32.3 - 35.7 g/dL [facility] RDW CV 12.2 11.1 - 14.9 % [facility] RDW SD 45.2 35.7 - 48.1 fL [facility] NRBC abs 0.00 0.00 - 0.01 K/cumm [facility] Blood 03/27/2024 5:32 AM CDT 03/27/2024 6:16 AM CDT Davie BARRY LAB BLOOD ORDERABLES Final Resul t Performing Organization Address [facility] de Phone Number [address] [employer] [place] [address] * Basic metabolic panel (03/27/2024 5:32 AM CDT) Pathologist [facility] Sodium 139 135 - 145 mmol/L Potassium, pl 3.6 3.3 - 4.9 mmol/L [facility] Chloride 103 97 - 110 mmol/L [facility] CO2 25 22 - 32 mmol/L [facility] Anion gap 11 2 - 15 mmol/L [facility] BUN 13 6 - 25 mg/dL [facility] Creatinine 0.67 0.60 - 1.10 mg/dL [facility] Glucose 98 70 - 199 mg/dL [facility] Comment: Interpretive Data Fasting glucose >/= [...] 2022. Calcium 9.5 8.5 - 10.3 mg/dL [facility] Blood 03/27/2024 5:32 AM CDT 03/27/2024 6:16 AM CDT Davie BARRY LAB BLOOD ORDERABLES Final Resul t Performing Organization Address [facility] [[email or web address]] Co de Phone Number [address] [employer] [place] [address] * (ABNORMAL) POCT glucose (03/26/2024 7:49 PM CDT) Glucose, POC 243(H) 70 - 199 mg/dL Glucose comment 1 Use This Result [facility] Glucose comment 2 RN/MD Notified [facility] Blood 03/26/2024 7:49 PM CDT 03/26/2024 7:49 PM CDT Blakelyn Moisés DO LAB POCT ORDERABLES - DEVICE F inal Result [facility] [address] [place] [address] * POCT glucose (03/26/2024 4:46 PM CDT) Glucose, POC 152 70 - 199 mg/dL Glucose comment 1 Use This Result [facility] Glucose comment 2 RN/MD Notified [facility] Blood 03/26/2024 4:46 PM CDT 03/26/2024 4:46 PM CDT Blakelyn Moisés DO LAB POCT ORDERABLES - DEVICE F inal Result Performing Organization Address [facility]/ZIP Co de Phone Number [id number] [place] [address] * POCT glucose (03/26/2024 11:24 AM CDT) Glucose, POC 147 70 - 199 mg/dL Glucose comment 1 Use This Result [facility] Glucose comment 2 RN/MD Notified [facility] Blood 03/26/2024 11:2 4 AM CDT 03/26/2024 11:24 AM CDT Blakelyn Moisés DO LAB POCT ORDERABLES - DEVICE F inal Result [address] [place] [address] * XR Hip Right 2 or 3 [...] 10:40 AM - Electronically signed by ??Sam Hilton M.D. MJ D: ??03/26/2024 10:40 AM T: Report ID: [id number] Reading Location: ??[id number] Procedure Note Sam Hilton MD - 03/26/2024 [...] 10:40 AM - Electronically signed by Sam Hilton M.D. MJ T: Report ID: [id number] Reading Location: [place] [address] Davie Hawkins PA IMG XR PROCEDURES Final Result * POCT glucose (03/26/2024 10:03 AM CDT) Glucose, POC 136 70 - 199 mg/dL Blood 03/26/2024 10:0 3 AM CDT 03/26/2024 10:03 AM CDT Marlonadrianna Curiel DO LAB POCT ORDERABLES - DEVICE F inal Result Performing Organization Address [facility] [[email or web address]] Co de Phone Number [facility] [address] [facility] [place], [place] [id number] * FL Fluoroscopy < 1 Hour (03/26/2024 9:10 AM CDT) Narrative LARA_[email or web address] - 03/26/2024 9:13 AM CDT The images from this study are not interpreted by Radiology. ??Please refer to the physician's procedure / OR operative note. Lacy Curiel DO IMG FLUOROSCOPY PROCEDURES Fin al Result Performing Organization Address [facility] de Phone Number [email or web address] * FL AN ELECTIVE ENDOTRACHEAL AIRWAY, [place] AN PROCEDURE PLACEHOLDER (03/26/2024 8:01 AM CDT) Narrative Mehdi Coyne CRNA - 03/26/2024 8:01 AM CDT Mehdi Coyne CRNA ? 03/26/2024 ??8:02 AM Airway Patient location: OR Urgency: elective Indications for airway management: anesthesia Difficult airway: no Staff: Placed by: PAIN MANAGEMENT NURSE: Mehdi Coyne CRNA Emergent airway documentation: Risks [...] 6:13 AM CDT 03/26/2024 6:20 AM CDT [place] DO LAB BLOOD ORDERABLES Final Res ult Performing Organization Address [facility] [[email or web address]] Co de Phone Number [id number] [employer] [place] [address] MHB * POCT glucose (03/26/2024 6:11 AM CDT) Glucose, POC 110 70 - 199 mg/dL Blood 03/26/2024 6:11 AM CDT 03/26/2024 6:11 AM CDT [place] DO LAB POCT ORDERABLES - DEVICE F inal Result Performing Organization Address City/[facility] [[email or web address]] Co de Phone Number [address] [employer] [place] [address] * XR Hip Right W Pelvis Min [...] AM T: ??03/18/2024 4:26 AM Report ID: [id number] Reading Location: ??[id number] Procedure Note Elias Lawson MD - 03/18/2024 [...] 4:26 AM - Electronically signed by Elias STACY Report ID: [id number] Reading Location: [id number] Lacy Curiel DO IMG XR PROCEDURES Final [...] DO LAB BLOOD ORDERABLES Final Res ult [facility] [address] [facility] [place] [address] * Differential, auto (03/13/2024 10:09 AM CDT) Pathologist [facility] Neutrophil abs 4.5 1.5 - 6.5 K/cumm Imm gran abs 0.0 0.0 - 0.1 K/cumm [facility] Lymphocyte abs 1.9 0.8 - 3.3 K/cumm [facility] Monocyte abs 0.5 0.2 - 0.8 K/cumm [facility] Eosinophil abs 0.4 0.0 - 0.5 K/cumm [facility] Basophil abs 0.1 0.0 - 0.1 K/cumm [facility] Neutrophil pct 61.1 % [facility] Comment: Interpretive Data Percent cell count reference ranges are not reported, since discordance with absolute values may lead to misinterpretation of CBC data. Current Interpretive Data was last revised on 2017. Imm gran pct 0.1 % [facility] Comment: Interpretive Data Percent cell count reference ranges are not reported, since discordance with absolute values may lead to misinterpretation of CBC data. Current Interpretive Data was last revised on 2017. Lymphocyte pct 26.0 % [facility] Comment: Interpretive Data Percent cell count reference ranges are not reported, since discordance with absolute values may lead to misinterpretation of CBC data. Current Interpretive Data was last revised on 2017. Monocyte pct 6.8 % [facility] Comment: Interpretive Data Percent cell count reference ranges are not reported, since discordance with absolute values may lead to misinterpretation of CBC data. Current Interpretive Data was last revised on 2017. Eosinophil pct 5.3 % [facility] Comment: Interpretive Data Percent cell count reference ranges are not reported, since discordance with absolute values may lead to misinterpretation of CBC data. Current Interpretive Data was last revised on 2017. Basophil pct 0.7 % [facility] Comment: Interpretive Data Percent cell count reference ranges are not reported, since discordance with absolute values may lead to misinterpretation of CBC data. Current Interpretive Data was last revised on 2017. Blood 03/13/2024 10:0 9 AM CDT 03/13/2024 10:16 AM CDT us Lacy Curiel DO LAB BLOOD ORDERABLES Final Res ult [facility] [address] [facility] [place] [address] * Infection Prevention MRSA Only (Staphylococcus aureus) PCR Nasal (03/13/2024 10:09 AM CDT) PCR Scrn, Methicillin resistant Staphylococcus aureus (MRSA) Not Detected Not Detected Comment: Interpretive Data Testing performed using Nucleic Acid Amplification with the MSI Xpert MRSA NxG Assay. This assay detects target DNA from mecA, mecC and the SCCmec insertion site of Staphylococcus aureus using Real-Time PCR and has been cleared by the FDA. Performance characteristics have been verified by the [facility]. Current Interpretive Data was last revised on 2023 Nasal 03/13/2024 10:0 9 AM CDT 03/13/2024 10:13 AM CDT [facility] MICROBIOLOGY - GENERAL ORD ERABLES Final Result [facility] [place] [address] * (ABNORMAL) CBC with auto differential (03/13/2024 10:09 AM CDT) WBC 7.3 3.8 - 9.9 K/cumm Hgb 13.3 11.9 - 15.5 g/dL [facility] Hct 40.8 35.6 - 45.5 % [facility] Plt 180 150 - 400 K/cumm [facility] MPV 10.1 9.1 - 12.3 fL [facility] RBC 3.94 3.90 - 5.20 M/cumm [facility] MCV 103.6(H) 81.3 - 96.4 fL [facility] MCH 33.8(H) 27.1 - 33.3 pg [facility] MCHC 32.6 32.3 - 35.7 g/dL [facility] RDW CV 12.4 11.1 - 14.9 % [facility] RDW SD 47.6 35.7 - 48.1 fL [facility] NRBC abs 0.00 0.00 - 0.01 K/cumm [facility] Blood 03/13/2024 10:0 9 AM CDT 03/13/2024 10:16 AM CDT [facility] BLOOD ORDERABLES Final Res ult [address] [place] [address] * ABO/Rh (03/13/2024 10:09 AM CDT) Pathologist [facility] ABO/Rh A Positive Blood 03/13/2024 10:0 9 AM CDT 03/13/2024 10:13 AM CDT Narrative ASHOK - 03/13/2024 10:52 AM CDT Is this test being ordered in advance for a procedure?->Yes Expected date of procedure:->03/26/24 Has the patient been transfused in the past 3 months?->No Has the patient been in the past 3 months?->No Lacy Curiel DO LAB BLOOD BANK TEST ORDERABLES Final Result [address] [address] * Nicotine metabolite screen, urine (03/13/2024 10:09 AM CDT) Pathologist [facility] Nicotine, ur <5.0 <5.0 ng/mL [facility] Cotinine, ur <5.0 <5.0 ng/mL [facility] Anabasine ur <2.0 <2.0 ng/mL [facility] Comment: ADDITIONAL INFORMATION This test was developed and its performance characteristics determined by [facility] in a manner consistent with CLIA requirements. This test has not been cleared or approved by the U.S. Food and Drug Administration. Test Performed by: [facility] - [address] [address] Rail Switch Operator: John Mckee Ph.D.; CLIA# [id number] Nornicotine, ur <2.0 <2.0 ng/mL [facility] Urine 03/13/2024 10:0 9 AM CDT 03/13/2024 11:35 AM CDT [facility] URINE ORDERABLES Final Res ult Performing Organization Address [facility] de Phone Number [id number] [place] [address] [facility] * Protime-INR (03/13/2024 10:09 AM CDT) PT 12.7 12.0 - 14.6 sec INR 0.9 0.9 - 1.2 [facility] Comment: Ref Range High Interpretive data Oral anticoagulant therapeutic ranges: Venous thromboembolism prophylaxis or treatment: 2.0-3.0 CARDIOLOGY Standard range: 2.0-3.0 High-intensity range: 2.5-3.5 Refer to indication-specific guidelines for appropriate target ranges for prosthetic heart valve replacement. Current interpretive data was last revised on 2019. Blood 03/13/2024 10:0 9 AM CDT 03/13/2024 10:16 AM CDT [facility] BLOOD ORDERABLES Final Res ult Performing Organization Address [facility] de Phone Number [address] [place] [address] * Antibody screen (03/13/2024 10:09 AM CDT) Naman, indirect, Gel Interpretation Negative ABSC Blood 03/13/2024 10:0 9 AM CDT 03/13/2024 10:13 AM CDT Narrative ASHOK - 03/13/2024 10:52 AM CDT Is this test being ordered in advance for a procedure?->Yes Expected date of procedure:->03/26/24 Has the patient been transfused in the past 3 months?->No Has the patient been in the past 3 months?->No [facility] BLOOD BANK TEST ORDERABLES Final Result Performing Organization Address [facility] [[email or web address]] Co de Phone Number [address] [place] [address] * Comprehensive metabolic panel (03/13/2024 10:09 AM CDT) Sodium 135 135 - 145 mmol/L Potassium, pl 3.7 3.3 - 4.9 mmol/L [facility] Comment:Hemolyzed; Potassium value may be falsely elevated by as much as 1.0 mmol/L. Suggest redraw and reanalysis. Chloride 102 97 - 110 mmol/L [facility] CO2 23 22 - 32 mmol/L [facility] Anion gap 10 2 - 15 mmol/L [facility] BUN 23 6 - 25 mg/dL [facility] Creatinine 0.60 0.60 - 1.10 mg/dL [facility] Glucose 108 70 - 199 mg/dL [facility] Comment: Interpretive Data Fasting glucose >/= [...] 2022. Calcium 10.3 8.5 - 10.3 mg/dL [facility] Bilirubin, total 0.3 0.1 - 1.2 mg/dL [facility] Protein, pl 6.6 6.5 - 8.5 g/dL [facility] Albumin 4.4 3.5 - 5.0 g/dL [facility] Alk phos 54 40 - 130 Units/L [facility] ALT 17 7 - 45 Units/L [facility] AST 23 10 - 45 Units/L [facility] Comment:Hemolyzed; result ma y be falsely elevated Blood 03/13/2024 10:0 9 AM CDT 03/13/2024 10:16 AM CDT us Lacy Curiel DO LAB BLOOD ORDERABLES Final Res ult [facility] [address] Department [place] [address] * ECG 12 lead (03/13/2024 9:52 AM CDT) Ventricular Rate EKG/Min 81 BPM [facility] Atrial Rate 81 BPM [facility] FL-Interval (MSEC) 144 ms [facility] QRS-Interval (MSEC) 80 ms [facility] QT-Interval (MSEC) 392 ms [facility] QTc 455 ms [facility] P [place]atte 70 degrees [facility] R [place] 32 degrees [facility] T [place] 39 degrees [facility] Diagnosis Normal sinus rhythm Normal ECG No previous ECGs available Confirmed by SULTAN MANRIQUE M.D. ([id number]) on 03/13/2024 8:10:20 PM [facility] 03/13/2024 9:52 AM CDT 03/13/2024 8:10 PM CDT us Mona Fishman NP ECG ORDERABLES Final Resu lt [facility] * Dexa Axial Skeleton Bone [...] signed by: Camille Rodriges M.D. Freddie Stanley DO [facility] DXA PROCEDURES Final Result * Screening Mammogram [...] has been subjected to R2/CAD analysis. Freddie Stanley DO IMG MAMMO PROCEDURES Final Resul t from Last 3 Months or Most Recently Relevant to Health Maintenance Insurance MEDICARE SOLUTIONS [facility] MDCR HMO REF MEDICARE SOLUTIONS Advance Directives For more information, please contact: [phone] * Full Code (Latest Code Status on File) Date Activated Date Inactivated Comments 03/26/2024 11:21 AM 03/27/2024 4:55 PM Care Teams Treatment Technician Relationship Specialty Start Date End Date Baldo Bower MD PCP - General Family Practice 11/03/23 Lacy Curiel DO [address] [address] Consulting Physician Orthopedic Surgery 03/27/24
--- OUTSIDE RECORDS SUMMARY | 2024-06-12 07:40 | XMS_ITS | Encounter Summary ---
Author Organization [facility] Healthcare Address [address] [place] [address] Care Team Providers Care Staff Readiness Officer Name Role Phone Baldo Bower MD Primary Care Provider + [phone] MoisésLiliam DO Unavailable [phone] Reason for Referral * Home Health (Routine) - Closed Specialty Diagnoses / Procedures Referred By Shari crenshaw Referred To Contact Home Health Services / Home Health and Hospice Diagnoses Aftercare following right hip joint replacement surgery Davie Hawkins PA [address] [place] [address] Phone: tel: fax: [facility] Home Care Services [address] [place] [address] Phone: tel: fax: Referral ID Status Reason Start Date Expiration Date V isits Requested Visits Authorized [id number] Closed Specialty Services Required 03/27/2024 04/26/2025 1 1 Question Answer [facility] Primary disciplines requested: Physical Therapy Home Health Services Therapy to Eval/Tx Therapy instructions: Evaluation/treatment, Joint protocal Joint Protocol: Anterior total hip arthroplasty Requested Start of Care Date: 24-48 hours Physician to follow patient's care (the person listed here will be responsible for signing ongoing orders): Referring Provider I attest that I or another qualified licensed provider saw the patient 90 days prior to or 30 days post admission and this face to face encounter meets the necessary Home Health requirements. The face to face encounter occurred on (date): 03/27/2024 The encounter with the patient was in whole, or in part, for the following medical condition, which is the primary reason for home health care. (List medical condition): Aftercare following total hip arthroplasty I certify that, based on my findings, the following services are medically necessary skilled home health services: Therapy to Eval/Tx, Wound/Ostomy Care Clinical findings that support the need for home care: Medical condition requiring skilled assessment/education I certify that my clinical findings support patient's homebound status. Homebound criteria met because: Pain and impaired mobility post-op, Abnormal gait/unsteady balance resulting in fall risk Reason for Visit * Auth/Cert (Routine) Specialty Diagnoses / Procedures Referred By Shari crenshaw Referred To Contact Diagnoses Primary osteoarthritis of right hip Primary osteoarthritis of right hip [M16.11] Procedures AK ARTHRP ACETBLR/PROX FEM PROSTC AGRFT/ALGRFT ANTERIOR APPROACH, RIGHT TOTAL HIP ARTHROPLASTY Referral ID Status Reason Start Date Expiration Date Visits Re quested Visits Authorized [id number] 1 1 Encounter Details Date Type Department Care Team (Latest Contact Info) Description 03/26/2024 5:13 AM CDT - 03/27/2024 12:54 PM CDT Hospital Encounter [address] [address] Liliam Curiel, [address] [address] Primary osteoarthritis of right hip [M16.11] (Primary Dx); Aftercare following right hip joint replacement surgery Discharge Disposition: Discharge to home or self care Social History Tobacco Use Types Packs/Day Years Used Date Smoking Tobacco: Former Cigarettes 1.5 18 S tarted: 1986 Passive Smoke Exposure: Past Smokeless Tobacco: Never [facility] Utilities Answer Date Recorded In the past 12 months has [employer], gas, oil, or water company threatened to [...] often do you attend chur ch or rastafari services? Never 03/26/2024 Do you belong to any clubs o r organizations such as congregation groups, unions, fraternal or athletic groups, or [...] any time in the past 12 m [facility], were you homeless or living in a detention (including now)? No 03/26/2024 Personal Safety Answer Date Recorded Have you ever been in or are you currently in a harmful physical or emotional relationship or is someone making you feel afraid or unsafe? 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 female Admit date: 03/26/2024 Discharge Date: 03/27/2024 12:54 PM Admitting Physician: Liliam Curiel DO Discharging Physician: Liliam Curiel DO Admission Diagnoses: Primary osteoarthritis of right hip [M16.11] Discharge Diagnoses: Primary osteoarthritis of right hip [M16.11] Discharged Condition: Good Consults: IP CONSULT TO SOCIAL WORK Procedures Performed: Procedure(s) (LRB): ANTERIOR APPROACH, RIGHT TOTAL HIP ARTHROPLASTY (Right) Hospital Course: Isela Kendall is a 73 y.o. female who presented to [facility] on 03/26/2024. Isela Kendall underwent Procedure(s) (LRB): ANTERIOR APPROACH, RIGHT TOTAL HIP ARTHROPLASTY (Right) performed by Dr. Liliam Curiel DO. Patient tolerated the procedure well and was transferred to the post anesthesia care unit in stable condition. After a brief stay in the PACU, the patient was transferred to the floor in stable condition. During the patients hospital stay they received the benefit of DVT prophylaxis, pain control with both PO and IV pain medication, prophylactic antibiotics and daily therapy. Patient's hospital stay wasuncomplicated and on the date of discharge the patient was tolerating a regular diet, was able to participate with physical therapy and had adequate pain control. Patient was discharged on 03/27/2024 12:54 PM. Disposition: Discharge to home or self care Discharge Medications: Current Medications TAKE these medications acetaminophen ER 650 mg 8 hr tablet Take 2 tablets (1,300 mg total) by mouth 2 (two) times a day Commonly known as: TYLENOL aspirin 81 mg chewable tablet Take 1 tablet (81 mg total) by mouth 2 (two) times a day For: prevention of thrombosis atenoloL 25 mg tablet Take 1 tablet (25 mg total) by mouth nightly Commonly known as: TENORMIN cholecalciferol 2000 unit tablet Take 1 tablet (2,000 Units total) by mouth 2 (two) times a day Commonly known as: VITAMIN D-3 Cholestyramine Light 4 gram powder Generic drug: cholestyramine-aspartame docusate sodium 100 mg capsule Take 1 capsule (100 mg total) by mouth 2 (two) times a day For: constipation Commonly known as: COLACE doxycycline 20 mg tablet Take 2 tablets (40 mg total) by mouth daily For Rosacea For: Other (complete free text reason below), Rosacea Commonly known as: PERIOSTAT ferrous sulfate 325 mg (65 mg of elemental iron) tablet Take 1 tablet (325 mg total) by mouth daily with breakfast For: anemia from inadequate iron FLONASE ALLERGY RELIEF NASL Administer 1 spray into affected nostril(s) daily glucosamine-chondroitin 250-200 mg tablet Take 1 tablet by mouth 2 (two) times a day HYDROcodone-acetaminophen 7.5-325 mg per tablet Take 1 tablet by mouth every 8 (eight) hours as needed for pain for up to 21 doses For: pain Commonly known as: NORCO lisinopriL 10 mg tablet Take 1 tablet (10 mg total) by mouth daily Commonly known as: PRINIVIL,ZESTRIL loratadine 10 mg capsule Take 1 tablet by mouth nightly LORazepam 0.5 mg tablet Take 1 tablet (0.5 mg total) by mouth every 8 (eight) hours as needed for anxiety Commonly known as: ATIVAN meloxicam 7.5 mg tablet Take 1 tablet (7.5 mg total) by mouth 2 (two) times a day Commonly known as: MOBIC metFORMIN 500 mg tablet Take 1 tablet (500 mg total) by mouth 2 (two) times a day with meals Commonly known as: GLUCOPHAGE ondansetron ODT 4 mg disintegrating tablet Take 1 tablet (4 mg total) by mouth every 8 (eight) hours as needed for nausea or vomiting For: prevent nausea and vomiting after surgery Commonly known as: ZOFRAN-ODT pantoprazole DR 40 mg EC tablet Take 1 tablet (40 mg total) by mouth 2 (two) times a day Commonly known as: PROTONIX rosuvastatin 20 mg tablet Take 1 tablet (20 mg total) by mouth nightly Commonly known as: CRESTOR UNABLE TO FIND Take 1 each by mouth 2 (two) times a day Med Name: MegaRed [place]-3 Krill oil UNABLE TO FIND Take 1 each by mouth daily Med Name: Qunol ultra CoQ10 100 mg valACYclovir 500 mg tablet Take 1 tablet (500 mg total) by mouth daily For: Chronic Suppression, 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, nose and mouth Commonly known as: VALTREX vitamins A,C,L-havb-bibomd 4,296 mcg-226 mg-90 mg capsule Take 1 capsule by mouth 2 (two) times a day Commonly known as: ICAPS Discharge Instructions: Activity Instructions Post-Discharge Activity Instructions - Hip Patient is weight bear as tolerated and will utilize anterior hip precautions Diet Instructions Adult Discharge Diet Diet Type: Return to previous diet Other Instructions Ambulatory referral to Home Health Service Line: Home Health Primary disciplines requested: Physical Therapy Home Health Services: Therapy to Eval/Tx Therapy instructions: Evaluation/treatment Joint protocal Joint Protocol: Anterior total hip arthroplasty Requested Start of Care Date: 24-48 hours Physician to follow patient's care (the person listed here will be responsible for signing ongoing orders): Referring Provider I attest that I or another qualified licensed provider saw the patient 90 days prior to or 30 days post admission and this face to face encounter meets the necessary Home Health requirements. The face to face encounter occurred on (date): 03/27/2024 The encounter with the patient was in whole, or in part, for the following medical condition, whichis the primary reason for home health care. (List medical condition): Aftercare following total hiparthroplasty I certify that, based on my findings, the following services are medically necessary skilled home health services: Therapy to Eval/Tx Wound/Ostomy Care Clinical findings that support the need for home care: Medical condition requiring skilled assessment/education I certify that my clinical findings support patient's homebound status. Homebound criteria met because: Pain and impaired mobility post-op Abnormal gait/unsteady balance resulting in fall risk Call provider for: Temperature -Temperature greater than 100.8 Call provider for: difficulty breathing or chest pain Call provider for: persistent nausea or vomiting Call provider for: redness, tenderness, or signs of infection (pain, swelling, redness, odor or green/yellow discharge around incision site) Call provider for: severe uncontrolled pain Commode Height: 157.5 cm (5' 2 ) Weight: 62.6 kg (138 lb) Type: Bedside Commode Patient is room confined or confined to single floor of home or no toilet facilitIes are available?: Yes The fvby-fv-tssk evaluation was performed on: 03/27/2024 DME services provided by: [facility] Post-Discharge Dressing Care - DO NOT submerge incision In tub, hot tub, pool, lewis, river, ocean etc. until incision is healed and surgeon gives clearance. Keep Prevena incisional wound VAC in place until it turns itself off in 7 days. At that time you may peel back a device like a sticker and you may shower without scrubbing the incision site. You may place an island bandage over the camille. Do not submerge the incision or take a bath. Walker Height: 157.5 cm (5' 2 ) Weight: 62.6 kg (138 lb) Type: Adult (163-188 cm tall) Bariatric (>300#): No Wheeled walker: Yes Wheel type: Front wheeled Leg extenders: No Patient has mobility limitation requiring use and patient is able to use walker; and functional mobility deficit is resolved by use of walker?: Yes DME services provided by: [facility] Primary Care Physician at Discharge: Baldo Bower MD [phone] Follow up: [facility] Home Care Services [address] [facility] [address] Liliam Curiel DO [address] [place] [address] [address] [place] [address] Future Appointments Date Time Provider Department Center 04/10/2024 10:00 AM Pawan Patrick MD PhD [facility] 04/10/2024 1:00 PM Davie Hawkins PA [facility] 05/08/2024 8:45 AM Liliam Curiel DO [facility] Contact Information for Follow-ups [facility] Specialty: Home Health and Hospice [address] [facility] [address] Next Steps: Follow up Questions: Service Line: Home Health Primary disciplines requested: Physical Therapy Home Health Services: Therapy to Eval/Tx Therapy instructions: Evaluation/treatment Joint protocal Joint Protocol: Anterior total hip arthroplasty Requested Start of Care Date: 24-48 hours Physician to follow patient's care (the person listed here will be responsible for signing ongoing orders): Referring Provider I attest that I or another qualified licensed provider saw the patient 90 days prior to or 30 days post admission and this face to face encounter meets the necessary Home Health requirements. The face to face encounter occurred on (date): 03/27/2024 The encounter with the patient was in whole, or in part, for the following medical condition, whichis the primary reason for home health care. (List medical condition): Aftercare following total hiparthroplasty I certify that, based on my findings, the following services are medically necessary skilled home health services: Therapy to Eval/Tx Wound/Ostomy Care Clinical findings that support the need for home care: Medical condition requiring skilled assessment/education I certify that my clinical findings support patient's homebound status. Homebound criteria met because: Pain and impaired mobility post-op Abnormal gait/unsteady balance resulting in fall risk Referral Status: Do Not Schedule Liliam Curiel DO Specialty: Orthopedic Surgery Relationship: Consulting Physician [address] [place] [address] [address] [place] [address] Next Steps: Follow up Comments: Follow-up with Dr. Curiel in clinic 2 weeks after surgery Questions: To provider: LILIAM CURIEL PA Orthopedic Surgery 03/27/24 2:42 PM Cosigned by Liliam Curiel DO at 03/27/2024 3:18 PM CDT documented in this encounter Discharge Instructions * Attachments The following attachments cannot be sent through Care Everywhere. * Anterior Hip Replacement (Discharge Care) (Uzbek) documented in this encounter Medications at Time of Discharge [...] 8 blood-glucose meter (Accu-Chek Guide Glucose Meter) [facility] [place]K [place]IDE W/DEVICE KIT 8 calcium carbonate-vitamin [...] doses 21 tablet 4 lancets 30 gauge [facility] [place]ARMACIST CHOICE LANCETS 8 lancing device [facility] [place] SIMPLE DIAGNOSTICS LANCING DEV 8 lisinopriL (PRINIVIL,ZESTRIL) [...] (two) times a day Med Name: MegaRed [place]-3 Krill oil UNABLE TO FIND Take 1 each by mouth daily Med Name: Qunol ultra CoQ10 100 mg valACYclovir (VALTREX) 500 mg tabletIndications:C hronic Suppression,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, nose and mouth Take 1 tablet (500 mg total) by mouth daily vitamins A,C,R-xzkn-lizaic (ICAPS) 4,296 mcg-226 mg-90 mg capsule Take 1 capsule by mouth 2 (two) times a day documented as of this encounter Ordered Prescriptions Prescription Sig Dispense Quantity Refills Last Filled Start Date End Date ondansetron ODT (ZOFRAN-ODT) 4 mg disintegrating tabletIndications:Pr evention of Post-Operative Nausea and Vomiting Take 1 tablet (4 mg total) by mouth every 8 (eight) hours as needed for nausea or vomiting 10 tablet 03/27/2024 HYDROcodone-acetamin ophen (NORCO) 7.5-325 mg per tabletIndications:Pa in Take 1 tablet by mouth every 8 (eight) hours as needed for pain for up to 21 doses 21 tablet 03/27/2024 docusate sodium (COLACE) 100 mg capsuleIndications:c onstipation Take 1 capsule (100 mg total) by mouth 2 (two) times a day 60 capsule 03/27/2024 aspirin 81 mg chewable tabletIndications:pr evention of thrombosis Take 1 tablet (81 mg total) by mouth 2 (two) times a day 60 tablet 03/27/2024 documented in this encounter Discharge Disposition Disposition Code Departure Means Destination Comment s Discharge to home or self care documented in this encounter Progress Notes * Angélica Alvarez, HAND SPRING REPAIRER HELPER - 03/27/2024 11:02 AM CDT Physical Therapy 03/27/24 1102 PT Last Visit Session Type Treatment Safe Environment Arm band checked;Patient found in supine;Gait belt utilized for all out of bed mobility Subjective Agreeable to Therapy Subjective Comment Patient states that she is ready to get out of here, didn't sleep well. Family/Caregiver Present Yes Precautions Precautions Fall risk;Hip: Anterior (right) Precaution Comments reviewed THP; 3/3 recall Activity Tolerance Activity Tolerance Comments good Pain Assessment Pain Assessment 0-10 Pain Score 5 - Moderate pain (5/10 average pain; 9/10 with SLR's) Pain Location Hip Pain Orientation Right Cognition Arousal/Alertness Alert Attention Span Appears intact Orientation Oriented X4 (person, place, time, situation) Following Commands Follows all commands and directions without difficulty Compliance/Behavior Easy to engage Supine Supine-Exercises Right;Lower extremity Supine-Exercise Type Ankle pumps;Quad sets;Glut sets;SLR;ABD/ADD;Heel slides Reps/Sets 02/27 Supine-Motion AROM;AAROM Supine-Exercise Comments HEP reviewed, patient demonstrated good understanding; min assist for SLR's Bed Mobility 1 Bed Mobility From 1 Supine Bed Mobility Type 1 To Bed Mobility to 1 Edge of bed Level of Assistance 1 Standby Assist;Minimal verbal cues Bed Mobility Comments 1 vc's for technique, increased time Transfer 1 Transfer From 1 Sit Transfer Type 1 To and from Transfer to 1 Stand Transfer Device 1 Wheeled walker Transfer Level of Assistance 1 Modified Independent Ambulation 1 Distance (ft) 1 300 Device 1 Wheeled walker Assistance 1 Standby Assist;Minimal verbal cues Gait: Requires verbal cues to 1 Use assistive device safely;Utilize appropriate gait sequencing Gait Deviations 1 Base of support - decreased;Nina - decreased;Heel strike - decreased;Hip/knee flexion during swing phase - decreased;Step length - decreased;Weight bearing through UE???s - increased Quality of Gait 1 fair Ambulation Comments 1 Patient working on step through gait pattern and improving weight bearing through right LE in stance phase of gait Stairs Stairs Yes Stair Comments Patient states that she has a level entry way and a ramp that she can use to enter her house. Agreeable to practice steps just in case. Stairs Number of Stairs 1 5; platform x 1 Rails 1 Bilateral;None (Comment) (used rails on steps, used wheeled walker on platform style step) Device 1 No device;Wheeled walker Assistance 1 Standby Assist Stairs: Requires assist with 1 Appropriate sequencing Safe Environment End of Therapy Session Safe Environment End of Therapy Session Patient left in chair;RN notified;Call light within reach;Overbed table within reach Plan Plan Continue with current plan Recommendation/Plan PT Recommendation/Plan Home Health PT;Home with family Time Calculation Start Time 1102 Stop Time 1145 Time Calculation (min) 43 min Transport Medic Services Utilized: NO Educated the patient to the role of physical therapy, plan of care, goals of therapy, rationale forprogressing mobility and home exercise program and hip precautions. Patient was left with all needs met and equipment intact. Mobility and ADL status posted at bedsideand within medical record. Multi-Disciplinary Problems (from Physical Therapy) Active Problems Problem: PT Misc Start Date: 03/26/24 Goal Start Date Expected End Date End Date PT STG - Misc 1 Pt will perform sit<>stand from variety of surfaces with good safety awareness and SBA -met 03/26/24 04/02/24 -- Goal Start Date Expected End Date End Date PT STG - Misc 2 Pt to ambulate with ww >200 ft with SBA and no LOB -met 03/26/24 04/02/24 -- Goal Start Date Expected End Date End Date PT STG - Misc 3 Pt will perform home exercise program per protocal with written cues as needed. -met 03/26/24 04/02/24 -- Goal Start Date Expected End Date End Date PT STG - Misc 4 Pt to ascend and descend 1 step with one handrail and proper technique with SBA -met 03/26/24 04/02/24 -- * Jane Bulolck COTA - 03/27/2024 10:05 AM CDT Occupational Therapy 03/27/24 1005 General Session Type Treatment OT Received On 03/27/24 Safe Environment Arm band checked;Patient found standing in room or hallway (pt up with RN in room) Subjective Agreeable to Therapy Precautions Precautions Fall risk;Hip: Anterior Precaution Comments reviewed hip precautions, 3/3 recall Pain Assessment Pain Score 5 - Moderate pain Pain Type Surgical pain Pain Location Hip Pain Orientation Right Grooming Grooming: Where assessed Standing at sink Grooming: Level of assistance Standby Assist LE Dressing LE Dressing: Where assessed Sitting;Standing;Edge of bed LE Dressing: Level of assistance Minimum Assist LE Dressing: Assistance with Don/doff R sock;Don/doff L sock;Thread RLE into pants;Thread LLE into pants;Thread LLE into underwear;Thread RLE into underwear;Pull up over hips;Don/doff R shoe;Don/doffL shoe (assist for heel of R shoe due to swelling. Educated on AE for LB dressing independence. Good carryover) Bed Mobility 1 Bed Mobility Type 1 To Bed Mobility to 1 Supine Level of Assistance 1 Contact Guard Assist Transfer 1 Transfer From 1 Sit Transfer Type 1 To Transfer to 1 Stand Technique 1 Sit to stand Transfer Device 1 Wheeled walker Transfer Level of Assistance 1 Modified Independent Cognition Arousal/Alertness Alert Attention Span Appears intact Memory Appears intact Current communication Appears Intact Orientation Oriented X4 (person, place, time, situation) Following Commands Follows all commands and directions without difficulty Insight Fully aware of deficits Compliance/Behavior Easy to engage Safe Environment End of Therapy Session Safe Environment End of Therapy Session Patient left supine in bed;Call light within reach;Overbed table within reach;Bed in lowest position with wheels locked;Bed rails up per protocol Assessment Prognosis Excellent Problem List Decreased balance;Decreased ADL independence;Decreased IADL independence;Decreased frequency/variety of movement;Pain Barriers to Discharge None Plan Plan Continue with current plan Recommendation/Plan OT Recommendation Home with family;Home Health OT;Home with intermittent assist Patient at high risk for Falls;Readmission;Injury due to decreased ability to care for self;Injury due to reduced functional status;Injury due to balance deficits;Injury at home as patient has not returned to prior level of function OT Frequency during current admission 5-7x/wk Treatment/Interventions during current admission ADL/IADL retraining;Balance Training;Bed mobility;Compensatory technique education;Endurance training;Equipment eval/education;Functional activity;Functional mobility training;Functional transfer training;Strengthening;Therapeutic activity;Therapeutic exercise;Transfer training OT Equipment Recommended Seismic Engineer;Sock aid;Long handled shoe horn;Dressing stick;Long handled sponge;Grab bars;Toilet raiser;Shower chair Progress during current admission Progressing toward goals Time Calculation Start Time 1005 Stop Time 1058 Time Calculation (min) 53 min Transport Medic Services Utilized: NO Patient is identified by name and date of on this visit. * Davie Hawkins PA - 03/27/2024 7:48 AM CDT Subjective: Patient seen and examined. Patient is status post 1 day right anterior total hip arthroplasty. Patient is doing well this morning in appears to be in good spirits. Patient reports that there is constant pain about the right hip overnight however there is improvement this morning after receiving 5 mg oxycodone. Currently she endorses 2/10 pain but notes any sort of movement exacerbates discomfort.She is able to ambulate short distances yesterday with physical therapy and is looking forward to additional PT today. Patient denies any nausea vomiting diarrhea shortness of breath or chest pain. Objective Vitals: 03/26/24199903/26/24 2328 03/27/24 0359 03/27/24 0726 BP: 132/80 125/71 135/68 129/79 BP Location: Right arm Right arm Right arm Patient Position: Lying Lying Lying Pulse: 97 71 77 77 Resp: 17 17 Temp: 36.9 ??C (98.4 ??F) 36.7 ??C (98.1 ??F) 36.6 ??C (97.9 ??F) 37.1 ??C (98.8 ??F) TempSrc: Oral Oral Oral SpO2: 98% 100% 97% 97% Weight: Height: Recent Labs Lab Units 03/27/24 0532 WBC K/cumm 13.3* HEMOGLOBIN g/dL 9.7* HEMATOCRIT % 28.6* CREATININE mg/dL 0.67 PT: Consulted, Gen: Isela Kendall is a 73 y.o. female who is A&O x 3. Musculoskeletal: RLE Dressing c/d/i Sensation intact to light touch L3-S1 nerve root dermatomes Active dorsiflexion and plantarflexion intact Toes up and down going Brisk capillary refill in all toes Compartments soft and compressible (-) Guerrero's sign Assessment: 1. AK ARTHRP ACETBLR/PROX FEM PROSTC AGRFT/ALGRFT [[id number]] (ANTERIOR APPROACH, RIGHT TOTAL HIP ARTHROPLASTY) 1 Day Post-Op Plan: Orthopedic admit WB Status: WBAT with walker PT/OT consult I discussed anterior hip precautions with the patient. DVT ppx: Aspirin 81 mg b.i.d. Diet: Advance diet as tolerated to regular Postoperative antibiotics: IV Ancef for 24 hours Dressing: Keep incisional wound VAC in place for approximately 1 week. Dressing may be removed after batteries dye and suctioned discontinues. Patient is to keep the dressing clean dry and intact andmay change dressings if 50% or greater saturated and may place an island dressing over the incisionsites. Patient may shower 7 days postoperatively but may not take a bath, scrub or soak incision site. If Steri-Strips are in place do not physically remove them or scrub over the incision site. Follow-up: Patient should attend scheduled follow-up with JHONNY Hawkins in 2 weeks J[facility]ONNY [facility]r Orthopedic Surgery 03/27/24 7:48 AM * Angélica Alvarez, HAND SPRING REPAIRER HELPER - 03/26/2024 2:57 PM CDT Physical Therapy 03/26/24 1457 PT Last Visit Session Type Treatment Safe Environment Arm band checked;Patient found in supine;Session completed bedside Subjective Agreeable to Therapy Subjective Comment Patient said that she performed 6-7 weeks of PT before surgery and felt the PT helped her recover from a partial hamstring tear. Family/Caregiver Present Yes Precautions Precautions Fall risk;Hip: Anterior (right THP) Precaution Comments reviewed THP Activity Tolerance Activity Tolerance Comments good Pain Assessment Pain Assessment 0-10 Pain Score 5 - Moderate pain (pain as low as 3/10 with ther ex and as high as 8/10.) Pain Location Hip Pain Orientation Right Cognition Arousal/Alertness Alert Orientation Oriented X4 (person, place, time, situation) Following Commands Follows all commands and directions without difficulty Compliance/Behavior Easy to engage Supine Supine-Exercises Right;Lower extremity Supine-Exercise Type Ankle pumps;Quad sets;Glut sets;SLR;ABD/ADD;Heel slides Reps/Sets 02/27 Supine-Motion AROM;AAROM Supine-Exercise Comments Patient was instructed in HEP and demonstrated good understanding, min assist to complete SLR's Safe Environment End of Therapy Session Safe Environment End of Therapy Session Patient left supine in bed;Bed alarm in place and activated;RN notified;Call light within reach;Sequential compressive devices on legs and activated;Overbed table within reach;Bed in lowest position with wheels locked Plan Plan Continue with current plan Recommendation/Plan PT Recommendation/Plan Home Health PT;Home with family Time Calculation Start Time 1457 Stop Time 1516 Time Calculation (min) 19 min Transport Medic Services Utilized: NO Educated the patient to the role of physical therapy, plan of care, goals of therapy, rationale forprogressing mobility and home exercise program and hip precautions. Patient was left with all needs met and equipment intact. Mobility and ADL status posted at bedsideand within medical record. Multi-Disciplinary Problems (from Physical Therapy) Active Problems Problem: PT Misc Start Date: 03/26/24 Goal Start Date Expected End Date End Date PT STG - Misc 1 Pt will perform sit<>stand from variety of surfaces with good safety awareness and SBA 03/26/24 04/02/24 -- Goal Start Date Expected End Date End Date PT STG - Misc 2 Pt to ambulate with ww >200 ft with SBA and no LOB 03/26/24 04/02/24 -- Goal Start Date Expected End Date End Date PT STG - Misc 3 Pt will perform home exercise program per protocal with written cues as needed. -progressing 03/26/24 04/02/24 -- Goal Start Date Expected End Date End Date PT STG - Misc 4 Pt to ascend and descend 1 step with one handrail and proper technique with SBA 03/26/24 04/02/24 -- * Lore Ballesteros OT - 03/26/2024 1:46 PM CDT Occupational Therapy 03/26/24 1346 General Chart Reviewed Yes Session Type Evaluation OT Received On 03/26/24 Safe Environment Arm band checked;Patient found in supine;Gait belt utilized for all out of bed mobility Subjective Agreeable to Therapy Subjective Comment Pt states, It hurts when I think about moving it. But I know I need to do it. Additional Pertinent History 73yo female s/p R MARY. PMHx skin CA, DM, herpes, COVID, seizures, vertigo, HTN, macular degeneration, OA, RLS Occupational Therapy-Patient Goal To return to PLOF with reduced pain Current Functional Status OT Functional Mobility Pt presents supine in bed. MIN A for RLE positioning during sup<>sit EOB. Pt sits EOB with SBA. CGA for sit<>stand x2 and stand step transfer to<>from [facility] [place]. MIN VC for walker mgmt, transfer sequencing, to maintain hip precautions. OT Self Care Some functional levels estimated based on simulated tasks and evaluation of strength, balance, and ROM. CGA for BSC transfer; SBA for pericare with skilled instruction to turn to sx side. MOD A to don socks d/t pain limiting distal reach. MOD I with set up for UB ADLs performed seated. Precautions Precautions (S) Fall risk;Bed/Chair Alarm;Hip: Anterior Precaution Handout Issued Yes (Anterior hip booklet issued and reviewed with pt; pt indep recalled 1/3 precautions) Home Living Type of Home House Home Layout One level Home Access Ramped entrance Bathroom Shower/Tub Walk-in shower with threshold Bathroom Toilet Raised Bathroom Equipment Toilet raiser;Grab bars around toilet;Grab bars in shower/tub Home Mobility Equipment-Available Single point cane Home Mobility Equipment-Currently Using Single point cane Home ADL Equipment-Available Seismic Engineer;Sock aid;Long-handled shoehorn;Long handled sponge Home ADL Equipment-Currently Using Seismic Engineer;Sock aid;Long-handled shoehorn;Long handled sponge Prior Function Level of [place] Independent with ADLs;Independent functional transfers;Independent with ambulation;Independent with homemaking with ambulation Lives With Spouse Receives Help From Spouse/Significant other;Family (Son also visiting to assist) Driving Yes Mode of Transportation Driven by self Fall within the last 6 months Yes Fall within the last 6 months comment 3 Prior Function Comments Indep all, including med mgmt Pain Assessment Pain Assessment 0-10 Pain Score 7 Pain Type Surgical pain Pain Location Hip Pain Orientation Right Activity Tolerance Endurance Tolerates 10 - 20 min activity with multiple rests Vision-Basic Assessment Current Vision Wears glasses all the time Perception Inattention/Neglect Appears intact Initiation Appears intact Perseveration Not present Cognition Arousal/Alertness Alert Attention Span Appears intact Memory Appears intact Current communication Appears Intact Orientation Oriented X4 (person, place, time, situation) Following Commands Follows all commands and directions without difficulty Insight Fully aware of deficits Compliance/Behavior Easy to engage Sensation Light Touch WFL Sensation Comments BUE intact Proprioception Proprioception No apparent deficits Motor Planning Motor Planning Appears intact Coordination Fine Motor WFL Serial Opposition WFL Hand Function Coordination Functional Gross Grasp Functional (Intact; good strength) Reach/Grasp RUE Reach WFL LUE Reach WFL RUE Assessment RUE Assessment X RUE Comments SH>hand AROM WFL, grossly 4-/5 - rotator cuff tear LUE Assessment LUE Assessment X LUE Comments SH>hand AROM WFL, grossly 4/5 Safe Environment End of Therapy Session Safe Environment End of Therapy Session Patient left supine in bed;Bed alarm in place and activated;Call light within reach;Overbed table within reach;Bed in lowest position with wheels locked;Sequential compressive devices on legs and activated Assessment Prognosis Excellent Problem List Decreased balance;Decreased functional mobility;Decreased ADL independence;Decreased IADL independence;Decreased frequency/variety of movement;Poor/Decreased functional positioning;Pain;Gait Plan Plan Plan of care initiated Recommendation/Plan OT Recommendation (S) Home with family;Home Health OT;Home with 24 hour supervision Patient at high risk for Falls;Injury due to reduced functional status OT Recommendation/Plan Comments Pt would benefit from continued skilled OT to address above mentioned problem areas and promote safe and independent return to daily performance. OT Frequency during current admission 5-7x/wk Treatment/Interventions during current admission ADL/IADL retraining;Balance Training;Bed mobility;Compensatory technique education;Endurance training;Equipment eval/education;Functional activity;Functional mobility training;Functional transfer training;Therapeutic activity;Therapeutic exercise;Transfer training OT - Next Appointment 04/09/24 OT Evaluation Complete Yes Time Calculation Start Time 1346 Stop Time 1404 Time Calculation (min) 18 min Educated the patient to the role of occupational therapy, plan of care, goals of therapy, rationalefor progressing mobility and use of call light. Pt verbalized understanding. RN notified of sessionoutcome. Patient was left in bed with all needs met and equipment intact. Transport Medic Services Utilized: NO Cotx with Tiffany Olivier PT for safety of patient and staff due to current diagnosis, medical status, and/or level of physical assist needed due to weakness or equipment management. Patient is identified by name and date of on this visit. Multi-Disciplinary Problems (from Occupational Therapy) Active Problems Problem: OT Misc Start Date: 03/26/24 Goal Start Date Expected End Date End Date OT [facility] - Misc 6 03/26/24 04/09/24 -- Goal Details: 1) LE ADL SBA WITH AE PRN. Goal Start Date Expected End Date End Date OT STG - Mis 7 03/26/24 04/09/24 -- Goal Details: 2) FUNCTIONAL MOBILITY TO/FROM BATHROOM AND ALL ASPECTS TOILETING MODIFIED INDEP WITHDME. Goal Start Date Expected End Date End Date OT STG - Misc 8 03/26/24 04/09/24 -- Goal Details: 3) STAND AT SINK X4 MIN FOR ADL WITH GOOD BALANCE. Goal Start Date Expected End Date End Date OT STG - Misc 9 03/26/24 04/09/24 -- Goal Details: 4) PERFORM SIMULATED TUB/SHOWER/CAR TRANSFER TECHS WITH DME PRN Goal Start Date Expected End Date End Date OT [facility] - [facility] [place] 10 03/26/24 04/09/24 -- Goal Details: 5) PERFORM ITEM RETRIEVAL FROM HIGH/LOW POSITIONS WITH GOOD BALANCE/SAFETY. * Tiffany Myles, PT - 03/26/2024 1:41 PM CDT Physical Therapy 03/26/24 1341 General Chart Reviewed Yes Session Type Evaluation Safe Environment Arm band checked;Patient found in supine Subjective Agreeable to Therapy Additional Pertinent History 73 yr old who had right THR by Dr Curiel this morning. Physical Therapy-Patient Goal Return home with family Current Functional Status PT Functional Mobility Pt is post op day 0 and needs min assist for bed mobility and transfers withww to commode. Precautions Precautions (S) Fall risk Home Living Type of Home House Home Layout One level Home Access Level entry Home Mobility Equipment-Available Single point cane Home Mobility Equipment-Currently Using Single point cane Prior Function Level of [place] Independent with ADLs;Independent functional transfers;Independent with ambulation Lives With Spouse Driving Yes Fall within the last 6 months Yes Fall within the last 6 months comment 3 Pain Assessment Pain Score 7 Pain Type Surgical pain Cognition Orientation Oriented X4 (person, place, time, situation) Following Commands Follows all commands and directions without difficulty Compliance/Behavior Easy to engage Bed Mobility 1 Bed Mobility From 1 Supine Bed Mobility Type 1 To and from Bed Mobility to 1 Edge of bed Level of Assistance 1 Minimum Assist Bed Mobility Comments 1 Verbal cues needed for maintaining total hip precautions with moving to edge of bed Transfer 1 Transfer From 1 Sit Transfer Type 1 To and from Transfer to 1 Stand Transfer Device 1 Wheeled walker Transfer Level of Assistance 1 Contact Guard Assist;Minimal verbal cues Ambulation 1 Distance (ft) 1 3 ft times 2 Device 1 Wheeled walker Assistance 1 Contact Guard Assist Gait Deviations 1 Nina - decreased;Step length - decreased;Weight bearing through UE???s - increased Ambulation Comments 1 Pt takes small steps with ww to transfer on/off bedside commode RLE Assessment RLE Assessment (Pervena intact, Grossly 2/5) LLE Assessment LLE Assessment WFL Assessment Prognosis Good Problem List Gait deviations;Decreased strength;Decreased endurance;Impaired balance;Decreased range of motion;Pain;Decreased ADLs Plan Plan Plan of care initiated Recommendation/Plan PT Recommendation/Plan Home with family;Home Health PT PT Frequency during current admission Twice a day Treatment/Interventions during current admission Balance Training;Bed mobility;Endurance training;Functional transfer training;Gait training;Neuromuscular re-education;Parent/caregiver training and ed ucation;Stair training;Therapeutic exercise;Therapeutic activity PT Equipment Recommended (S) Wheeled walker PT - Next Appointment 04/09/24 PT Evaluation Complete Yes Time Calculation Start Time 1341 Stop Time 1403 Time Calculation (min) 22 min Multi-Disciplinary Problems (from Physical Therapy) Active Problems Problem: PT Misc Start Date: 03/26/24 Goal Start Date Expected End Date End Date PT STG - Mis 1 Pt will perform sit<>stand from variety of surfaces with good safety awareness and SBA 03/26/24 04/02/24 -- Goal Start Date Expected End Date End Date PT STG - Mis 2 Pt to ambulate with ww >200 ft with SBA and no LOB 03/26/24 04/02/24 -- Goal Start Date Expected End Date End Date PT STG - Mis 3 Pt will perform home exercise program per protocal with written cues as needed. 03/26/24 04/02/24 -- Goal Start Date Expected End Date End Date PT STG - Mis 4 Pt to ascend and descend 1 step with one handrail and proper technique with SBA 03/26/24 04/02/24 -- Educated patient on the role of Physical Therapy, plan of care, goals, rationale for progressing mobility and discussed DC plans. RN notified of session outcome. Patient left supine in bed with all needs met and equipment intact.Safety measures include all personal items in reach and oriented to call light. Patient instructed to use call light for assistance with all mobility. Mobility and ADL status posted within medical record and on whiteboard in room. Patient does not need an interpretor. documented in this encounter H&P Notes * Liliam Curiel, - 03/26/2024 7:14 AM CDT I have reviewed the H&P, examined the patient, and endorse the findings as written. Plan of Care : Based on the above findings, I consider Isela Kendall to be an acceptable risk for : Procedure(s): ANTERIOR APPROACH, RIGHT TOTAL HIP ARTHROPLASTY Source Note - Liliam Curiel DO - 03/15/2024 1:30 PM CDT Images from the original note were not included. Preoperative H&P visit CHIEF COMPLAINT She had concerns including Pre-op Visit of the Right Hip. HISTORY OF PRESENT ILLNESS Isela Kendall is a 73 y.o. female who was seen today. They present with chronic 7/10 right hip pain. Patient has completed physical therapy which helped overall with her posterior and lateral hippain. She continues to have groin pain with hip flexion and internal rotation. She has previously underwent 2 fluoroscopic guided hip injections which did provide some relief in the past. Patient is here today with her Riky and is looking for to right total hip arthroplasty. PAST MEDICAL HISTORY She has a past medical history of Allergic rhinitis, Arthritis, Cancer ([facility]/HCC) (), Dental bridge present, Dental crowns present, Diabetes mellitus (), Gastric reflux, Herpes, History of COVID-19, History of pneumonia, History of seizures, History of vertigo, Hypercholesterolemia, Hypertension, Macular degeneration, Osteoarthritis, RLS (restless legs syndrome), Skin cancer, basal cell (2012), and Wears glasses. She has no past medical history of History of chemotherapy, History of radiation therapy, or Smoking. PAST SURGICAL HISTORY She has a past surgical history that includes Tonsillectomy; FL Fluoro Guided Injection Hip Right (Right, 06/01/2023); FL Fluoro Guided Injection Hip Right (Right, 11/10/2023); Eye surgery (Bilateral); Oopherectomy; Cholecystectomy; Hysterectomy; and Colonoscopy. MEDICATIONS She has a current medication list which includes the following prescription(s): cholestyramine light, trazodone, acetaminophen er, atenolol, cholecalciferol, doxycycline, ferrous sulfate, fluticasonepropionate, glucosamine-chondroitin, lisinopril, loratadine, lorazepam, meloxicam, metformin, pantoprazole dr, rosuvastatin, UNABLE TO FIND, UNABLE TO FIND, valacyclovir, and vitamins a,c,j-gumv-stjcbj. ALLERGIES She is allergic to keflex [cephalexin], sulfa (sulfonamide antibiotics), and penicillins. SOCIAL HISTORY She reports that she has quit smoking. Her smoking use included cigarettes. She started smoking about 37 years ago. She has a 26.7 pack-year smoking history. She has been exposed to tobacco smoke. She has never used smokeless tobacco. She reports current drug use. Frequency: 3.00 times per week. Patient reports consuming alcoholic drinks , with a daily consumption of drinks. Patient denies daily consumption of 6 or more alcoholic drinks at one occasion. FAMILY HISTORY Family History Problem Relation Age of Onset Rheum arthritis Mother Rheumatoid arthritis; Heart disease Mother Cardiovascular disease; Alzheimer's disease Mother Alzheimer's disease; Asthma Father Asthma; Parkinsonism Other Family history of Parkinson's disease; Prostate cancer Brother Family history of malignant neoplasm of prostate - (Added by TW Conv) Breast cancer Mother's Sister Breast cancer Mother's Sister Ovarian cancer Neg Hx Thyroid cancer Neg Hx Endometrial cancer Neg Hx REVIEW OF SYSTEMS Constitutional: Positive for activity change Musculoskeletal: Positive for arthralgias PHYSICAL EXAM There were no vitals taken for this visit. Right hip exam: Patient has pain and crepitance with range of motion of the hip. Groin pain is elicited with hip flexion and internal rotation with limited internal rotation to 10 degrees. Mild tenderness to palpation overlying the lateral aspect of the hip. Patient has 5/5 strength with hip flexion and extension but does have pain and crepitance with hip range of motion. Patient has intact sensation in all toesand 2+ dorsalis pedis pulse. REVIEW OF X-RAYS/STUDIES/LABS AP pelvis and frog-leg lateral of the right hip performed today and independently interpreted by meshows evidence of moderate to severe right hip osteoarthritis with no sign of fracture or dislocation. Assessment/Plan: 1. Primary osteoarthritis of right hip 2. Pre-operative exam - XR Hip Right W Pelvis Min 2 To 3 Views; Future I discussed continued conservative or operative treatment strategies and we elected to proceed withoperative treatment as the patient has exhausted appropriate conservative treatment strategies at this time. We discussed the risks associated with surgery, in plain terms which the patient could understand, which include but are not limited to wound complications, hematoma, infection, loss of sensation surrounding the incision sites, continued pain, arthrofibrosis, infection, dislocation, fracture which may require fixation and may limit weight-bearing, hardware failure, leg length/rotational discrepancy, foot drop, DVT, PE, loss of function of the limb and even . We also discussed the planned intraoperative surgical strategy and planned postoperative course. Time was given to the patient to ask questions and all of their questions were answered. The patient elected to proceed with right ante rior total hip arthroplasty Patient is already scheduled for right anterior total hip arthroplasty to be performed on 03/26/2024 Patient will be an Orthopedic admit and will stay at least 1 night for postoperative pain control Implants: Depuy We will utilize the hana bed and large C-arm intraoperatively Patient will require preoperative labs and clearance from their PCP We will utilize Ancef IV for perioperative infection prophylaxis Chemical DVT prophylaxis: Aspirin 81mg BID Patient will require a wheeled walker and 3:1 commode on discharge Plan is for patient to be discharged to home with home health physical therapy Liliam Curiel DO 03/15/2024 documented in this encounter Miscellaneous Notes * Plan of Care - Shaniqua Segovia RN - 03/27/2024 12:26 PM CDT Goals: Clinical Goals for the Shift: safety, pain control, PT/OT [facility] Patient Centered Goal for Treatment: discharge to home This shift: --Wound care: surgical dressing, clean/dry/intact --Tolerating Diet: Yes -- Adequate urine output: Yes --BM this shift: No --Activity: up standby assist --Pain control: controlled with PRN pain medications --Free From Falls: Yes --Shift Events: pt resting comfortably in bed, no complaints or distress noted, will continue to monitor Reviewed discharge instructions with Isela Kendall, and provided with a copy of the after visit summary. Questions encouraged. Patient verbalized understanding of discharge instructions, and denies additional needs. Discharge to Home via wheelchair Transported by: PCT Problem: Skin/Tissue Integrity Goal: Skin integrity remains intact Outcome: Adequate for Discharge Flowsheets (Taken 03/27/2024 0900) Skin integrity remains intact: Assess and document risk factors for pressure injury development Assess and document skin integrity Monitor for areas of redness and/or skin breakdown Goal: Incisions, wounds, or drain sites healing without S/S of infection Outcome: Adequate for Discharge Flowsheets (Taken 03/27/2024899) Incision(s), Wound(s) or Drain Site(s) healing without S/S of infection: Assess and document risk factors for pressure injury development Assess and document skin integrity Assess and document dressing/incision, wound bed, drain sites and surrounding tissue Implement wound care per orders Goal: Oral mucous membranes remain intact Description: Outcome: Adequate for Discharge Flowsheets (Taken 03/27/2024899) Oral mucous membranes remain intact: Assess oral mucosa and hygiene practices Implement preventative oral hygiene regimen Implement oral medicated treatments as ordered Problem: Musculoskeletal Goal: Return mobility to safest level of function Outcome: Adequate for Discharge Flowsheets (Taken 03/27/2024899) Return mobility to safest level of function: Assess patient stability and activity tolerance for standing, transferring and ambulating with or without assistive devices Assist with transfers and ambulation using safe patient handling equipment as needed Ensure adequate protection for wounds/incisions during mobilization Obtain PT/OT consults as needed Instruct patient/family in ordered activity level Goal: Maintain proper alignment of affected body part Outcome: Adequate for Discharge Flowsheets (Taken 03/27/2024899) Maintain proper alignment of affected body part: Support and protect limb and body alignment per provider's orders Instruct and reinforce with patient and family use of appropriate assistive device and precautions (e.g. spinal or hip dislocation precautions) Goal: Return ADL status to a safe level of function Outcome: Adequate for Discharge Flowsheets (Taken 03/27/2024899) Return activities of daily living status to a safe level of function: Assess patient's activities of daily living deficits and provide assistive devices as needed Obtain PT/OT consults as needed Assist and instruct patient to increase activity and self care Goal: Ability to perform activities at highest level will improve Outcome: Adequate for Discharge Flowsheets (Taken 03/27/2024899) Ability to perform activities at highest level will improve: Collaborate with rehabilitation services Goal: Mobility, ROM and muscle strength will improve Outcome: Adequate for Discharge Flowsheets (Taken 03/27/2024899) Mobility, ROM and muscle strength will improve: Provide proper bed mobility techniques Encourage mobilization to extent of ability Encourage prescribed exercise Provide positioning in correct anatomical alignment Perform passive and/or assist with range of motion Problem: Discharge Planning Goal: Understanding discharge needs will improve Outcome: Adequate for Discharge Flowsheets (Taken 03/27/2024899) Understanding of discharge needs will improve: Discuss information regarding discharge instructions Problem: Lack of Knowledge Goal: Ability to develop a pain control plan will improve Outcome: Adequate for Discharge Flowsheets (Taken 03/27/2024899) Ability to develop a pain control plan will improve: Explain causes of pain and how long pain can be expected to last Teach information regarding pain management Educate pain scale for assessing level of pain Teach notification to healthcare provider of episodes of pain Problem: Medication Goal: Satisfaction with pain management medication regimen will improve Outcome: Adequate for Discharge Flowsheets (Taken 03/27/2024899) Satisfaction with pain management medication regimen will improve: Assess satisfaction with pain management regimen Evaluate medication effects Manage analgesics Provide administration of medications prior to painful activities Report inadequate pain control to healthcare provider Problem: Sensory Goal: Ability to identify factors that increase pain levels will improve while working to decrease the patient's pain levels Outcome: Adequate for Discharge Flowsheets (Taken 03/27/2024899) Ability to identify factors that increase pain levels will improve while working to decrease patients pain levels: Assess pain status Observe non-verbal cues of discomfort, such as restlessness, muscle tension, or altered vital signs Explore factors that precipitate, worsens, or relieves pain or discomfort Explore and collaborate with complimentary and alternative therapies Provide hot or cold therapy Evaluate treatment plan for related conditions Assess effects of pain control measures Explore alternative treatments for pain from the patient's culture Problem: Coping Goal: Ability to cope will improve Outcome: Adequate for Discharge Flowsheets (Taken 03/27/2024899) Ability to cope will Improve: Encourage vebalization of feelings surrounding pain Provide emotional support Assess beliefs of pain Problem: Health Behavior Goal: Identification of resources available to assist in meeting health care needs will improve Outcome: Adequate for Discharge Flowsheets (Taken 03/27/2024899) Identification of resources available to assist in meeting health care needs will improve: Collaborate with all therapies * Plan of Care - Morena Marcos LCSW - 03/27/2024 9:26 AM CDT Acknowledge Consult TOURIST INFORMATION OFFICER consulted for Post Op THR discharge planning . No social service needs identified at this time. global engineering manager following for discharge planning, progression of care, and can consult adoption social worker if needs arise. Morena Marcos LCSW 03/27/2024 9:27 AM * Plan of Care - Ericka Person RN - 03/26/2024 11:02 PM CDT Goals: Clinical Goals for the Shift: safty, pain control, comfort [facility] Patient Centered Goal for Treatment: discharge to home -This shift: -Wound care: assessed right hip -Tolerating diet: yes; pt has no c/o GI upset or n/v with medications, food or drinks -Adequate urine output: yes; -BM this shift: no -Activity: up to bathroom. Walker. 1 assist -Pain control: pain controlled with prn medications -Free from falls: yes; pt remain on fall precautions with bed alarm on -Shift events: Problem: Skin/Tissue Integrity Goal: Skin integrity remains intact Outcome: Progressing Flowsheets (Taken 03/26/20242014) Skin integrity remains intact: Assess and document risk factors for pressure injury development Assess and document skin integrity Monitor for areas of redness and/or skin breakdown Goal: Incisions, wounds, or drain sites healing without S/S of infection Outcome: Progressing Flowsheets (Taken 03/26/20242014) Incision(s), Wound(s) or Drain Site(s) healing without S/S of infection: Assess and document dressing/incision, wound bed, drain sites and surrounding tissue Assess and document risk factors for pressure injury development Assess and document skin integrity Goal: Oral mucous membranes remain intact Description: Outcome: Progressing Flowsheets (Taken 03/26/20242014) Oral mucous membranes remain intact: Implement preventative oral hygiene regimen Problem: Musculoskeletal Goal: Return mobility to safest level of function Outcome: Progressing Flowsheets (Taken 03/26/20242014) Return mobility to safest level of function: Assess patient stability and activity tolerance for standing, transferring and ambulating with or without assistive devices Assist with transfers and ambulation using safe patient handling equipment as needed Ensure adequate protection for wounds/incisions during mobilization Obtain PT/OT consults as needed Instruct patient/family in ordered activity level Goal: Maintain proper alignment of affected body part Outcome: Progressing Flowsheets (Taken 03/26/20242014) Maintain proper alignment of affected body part: Instruct and reinforce with patient and family use of appropriate assistive device and precautions (e.g. spinal or hip dislocation precautions) Support and protect limb and body alignment per provider's orders Goal: Return ADL status to a safe level of function Outcome: Progressing Flowsheets (Taken 03/26/20242014) Return activities of daily living status to a safe level of function: Assess patient's activities of daily living deficits and provide assistive devices as needed Assist and instruct patient to increase activity and self care Goal: Ability to perform activities at highest level will improve Outcome: Progressing Flowsheets (Taken 03/26/20242014) Ability to perform activities at highest level will improve: Collaborate with rehabilitation services Goal: Mobility, ROM and muscle strength will improve Outcome: Progressing Flowsheets (Taken 03/26/20242014) Mobility, ROM and muscle strength will improve: Provide proper bed mobility techniques Encourage mobilization to extent of ability Encourage prescribed exercise Provide positioning in correct anatomical alignment Problem: Discharge Planning Goal: Understanding discharge needs will improve Outcome: Progressing Flowsheets (Taken 03/26/20242014) Understanding of discharge needs will improve: Identify discharge barriers Arrange for needed discharge resources and transportation as appropriate Collaborate with case management interdisciplinary team Identify discharge learning needs (meds, wound care, etc.) Discuss information regarding discharge instructions Problem: Lack of Knowledge Goal: Ability to develop a pain control plan will improve Outcome: Progressing Flowsheets (Taken 03/26/20242014) Ability to develop a pain control plan will improve: Explain causes of pain and how long pain can be expected to last Teach information regarding pain management Educate pain scale for assessing level of pain Teach notification to healthcare provider of episodes of pain Problem: Medication Goal: Satisfaction with pain management medication regimen will improve Outcome: Progressing Flowsheets (Taken 03/26/20242014) Satisfaction with pain management medication regimen will improve: Assess satisfaction with pain management regimen Evaluate medication effects Manage analgesics Provide administration of medications prior to painful activities Report inadequate pain control to healthcare provider Problem: Sensory Goal: Ability to identify factors that increase pain levels will improve while working to decrease the patient's pain levels Outcome: Progressing Flowsheets (Taken 03/26/20242014) Ability to identify factors that increase pain levels will improve while working to decrease patients pain levels: Assess pain status Provide hot or cold therapy Assess effects of pain control measures Problem: Coping Goal: Ability to cope will improve Outcome: Progressing Flowsheets (Taken 03/26/20242014) Ability to cope will Improve: Encourage vebalization of feelings surrounding pain Assess beliefs of pain Problem: Health Behavior Goal: Identification of resources available to assist in meeting health care needs will improve Outcome: Progressing Flowsheets (Taken 03/26/20242014) Identification of resources available to assist in meeting health care needs will improve: Collaborate with pain management Collaborate with all therapies Cosigned by Natalya Garcia, RN at 03/28/2024 12:53 AM CDT * Plan of Care - Shaniqua Segovia RN - 03/26/2024 5:02 PM CDT Goals: Clinical Goals for the Shift: safety, pain control, PT/OT Longterm Patient Centered Goal for Treatment: discharge to home This shift: --Wound care: surgical incision, purple foam, prevena, clean/dry/intact --Tolerating Diet: Yes -- Adequate urine output: Yes --BM this shift: No --Activity: up with one assist, walker, gait belt --Pain control: controlled with PRN pain medication --Free From Falls: Yes --Shift Events: admission to unit, pt resting in bed comfortably, no complaints or distress noted, will continue to monitor Problem: Skin/Tissue Integrity Goal: Skin integrity remains intact Outcome: Progressing Flowsheets (Taken 03/26/2024 1300) Skin integrity remains intact: Assess and document risk factors for pressure injury development Assess and document skin integrity Monitor for areas of redness and/or skin breakdown Goal: Incisions, wounds, or drain sites healing without S/S of infection Outcome: Progressing Flowsheets (Taken 03/26/2024 1300) Incision(s), Wound(s) or Drain Site(s) healing without S/S of infection: Assess and document risk factors for pressure injury development Assess and document skin integrity Assess and document dressing/incision, wound bed, drain sites and surrounding tissue Implement wound care per orders Goal: Oral mucous membranes remain intact Description: Outcome: Progressing Flowsheets (Taken 03/26/2024 1300) Oral mucous membranes remain intact: Assess oral mucosa and hygiene practices Implement preventative oral hygiene regimen Implement oral medicated treatments as ordered Problem: Musculoskeletal Goal: Return mobility to safest level of function Outcome: Progressing Flowsheets (Taken 03/26/2024 1300) Return mobility to safest level of function: Assess patient stability and activity tolerance for standing, transferring and ambulating with or without assistive devices Assist with transfers and ambulation using safe patient handling equipment as needed Ensure adequate protection for wounds/incisions during mobilization Obtain PT/OT consults as needed Instruct patient/family in ordered activity level Goal: Maintain proper alignment of affected body part Outcome: Progressing Flowsheets (Taken 03/26/2024 1300) Maintain proper alignment of affected body part: Support and protect limb and body alignment per provider's orders Instruct and reinforce with patient and family use of appropriate assistive device and precautions (e.g. spinal or hip dislocation precautions) Goal: Return ADL status to a safe level of function Outcome: Progressing Flowsheets (Taken 03/26/2024 1300) Return activities of daily living status to a safe level of function: Assess patient's activities of daily living deficits and provide assistive devices as needed Obtain PT/OT consults as needed Assist and instruct patient to increase activity and self care Goal: Ability to perform activities at highest level will improve Outcome: Progressing Flowsheets (Taken 03/26/2024 1300) Ability to perform activities at highest level will improve: Collaborate with rehabilitation services Goal: Mobility, ROM and muscle strength will improve Outcome: Progressing Flowsheets (Taken 03/26/2024 1300) Mobility, ROM and muscle strength will improve: Provide proper bed mobility techniques Encourage mobilization to extent of ability Encourage prescribed exercise Provide positioning in correct anatomical alignment Perform passive and/or assist with range of motion Problem: Discharge Planning Goal: Understanding discharge needs will improve Outcome: Progressing Flowsheets (Taken 03/26/2024 1300) Understanding of discharge needs will improve: Discuss information regarding discharge instructions Problem: Lack of Knowledge Goal: Ability to develop a pain control plan will improve Outcome: Progressing Problem: Medication Goal: Satisfaction with pain management medication regimen will improve Outcome: Progressing Problem: Sensory Goal: Ability to identify factors that increase pain levels will improve while working to decrease the patient's pain levels Outcome: Progressing Problem: Coping Goal: Ability to cope will improve Outcome: Progressing Problem: Health Behavior Goal: Identification of resources available to assist in meeting health care needs will improve Outcome: Progressing * Plan of Care - Melinda Colin RN - 03/26/2024 2:21 PM CDT DISCHARGE PLANNING HAS BEEN FINALIZED AT THIS TIME: If there is a change in patient condition whichcould impact this plan and/or additional discharge needs arise, please contact Case Management. Care management team met with patient and finalized discharge planning, please see below. If additional discharge needs arise, please reach out to the care management team. LIZBETH: 03/27/24 [facility]SP[facility]: [facility] ; Bedside RN to fax order and AVS to above fax number at d/c. Pt was provided list of HHC for choice DURABLE MEDICAL EQUIPMENT: [facility] Address: [address] [place], [place] [address] [address] Will contact Alton at [employer] and request equipment delivery 03/26/24 1420 Discharge Summary Discharge Disposition Home health care Specify Facility [facility] Facility Contact Number Discharge Records Chart Copied Recommended Discharge Level of Longterm health care Actual Discharge Level of Longterm health care Post Acute Care Plan Home Care Services Yes Type of Home Care Services Home therapies;Nurse visit Home Care Services Name and Phone Number [facility] OP Services N/A DME Yes Durable Medical Equipment Walker (wheeled) DME Name and Contact Number [employer] [phone] Post Acute Care Facility N/A Post Discharge Care Provider Post Discharge Care Plan DC Summary has been faxed to next level of care provider (see Follow Up Providers) Melinda Colin RN, BSN 03/26/2024 2:25 PM * [facility]IN Note - Melinda Colin RN - 03/26/2024 1:26 PM CDT Patient Information: OT Eval and Treat Last 72 Hours OT Evaluation No documentation. OT Treatment No documentation. OT Notes Notes from 03/24/24 through 03/26/24 No notes of this type exist for this encounter. , PT Eval and Treat Last 72 Hours PT Evaluation No documentation. PT TREATMENT (Last 168 Hours) PT Treatment No documentation. PT Notes Notes from 03/24/24 through 03/26/24 No notes of this type exist for this encounter. * NIKO Note - Melinda Colin RN - 03/26/2024 1:26 PM CDT Images from the original note were not included. Patient Information: Patient Header Patient Information Patient Name: ISELA KENDALL Date of 1950 (73 years) Sex: Female Phone Numbers: Home: , Comprehensive Nursing Documentation Attending Provider: Liliam Curiel DO Allergies: Keflex [Cephalexin], Sulfa (Sulfonamide Antibiotics), Penicillins Isolation: None Infection: None Code Status: FULL Ht: 157.5 cm (5' 2 ) Wt: 62.6 kg (138 lb) Admission Cmt: None Principal Problem: Primary osteoarthritis of right hip [M16.11] Elopement Risk Date/Time Risk/Reason for Elopement User 03/26/24 0552 No risk RRC Intake/Output 03/26/24 0700 - 03/27/24 0659 [phone] Total Intake (ml) 1500 -- -- 1500 Output (ml) 250 -- -- 250 Net (ml) 1250 -- -- 1250 Last Weight 62.6 kg (138 lb) -- -- -- Patient Lines/Drains/Airways Status Active Airway / Central venous catheter / Drain / Epidural cathether / Intraosseous line / Peripherally inserted central catheter / Peripheral intravenous line / Arterial line Name Placement date Placement time Site Days Peripheral IV 03/26/24 20 G Left;Posterior Hand 03/26/24 0614 Hand less than 1 Active Wound Assessment Active Wound / Pressure injury / Vitale / Negative Pressure Wound / Incision Wound 03/26/24 Incision Hip/trochanter Anterior;Right Date First Assessed 03/26/24 Site Hip/trochanter Time First Assessed 0756 Days less than 1 Present on Original Admission: N Primary Wound Type: Incision Location Orientation: Anterior;Right Assessments Row Name 03/26/24 1130 03/26/24 1105 03/26/24 1035 03/26/24 1005 03/26/24 0935 Dressing Status Clean/Dry/Intact Clean/Dry/Intact;New Clean/Dry/Intact;New Clean/Dry/Intact;New Clean/Dry/Intact;Friendship Assessment ASHLEY ASHLEY ASHLEY ASHLEY ASHLEY Rhonda-wound Assessment Dry;Intact Dry;Intact Dry;Intact Dry;Intact Dry;Intact Interventions Other (Comment) assessed -- -- -- Other (Comment) Assessed Dressing Vacuum dressing Vacuum dressing Vacuum dressing Vacuum dressing Vacuum dressing Negative Pressure Wound Therapy Used Yes -- -- -- -- Vital Fall Risk Flowsheet Row Most Recent Value Prior Fall Event (Autopopulated from EMR) None found ............filed at 03/26/2024 1130 History of Falling 0 ............filed at 03/26/2024 1130 Secondary Diagnosis 15 ............filed at 03/26/2024 1130 Ambulatory Aids 15 ............filed at 03/26/2024 1130 Intravenous Therapy/Heparin/Saline Lock 20 ............filed at 03/26/2024 1130 Gait/Transferring 10 ............filed at 03/26/2024 1130 Mental Status 0 ............filed at 03/26/2024 1130 Vital Fall Risk Score 60 ............filed at 03/26/2024 1130 Vital Signs 03/25 0700 03/26 0659 03/26 0703/26 1326 Most Recent Temp (??C) 36.4 36.3 - 36.9 36.3 (97.3) 03/26 1230 Pulse 79 72 - 90 73 03/26 1230 Resp 18 9 - 20 16 03/26 1230 ETCO2 (mmHg) (mmHg) 27 - 48 40 03/26 1035 SpO2 (%) 98 94 - 100 100 03/26 1230 BP 151/102 101/69 - 152/69 133/83 03/26 1230 MAP (mmHg) 79 - 113 95 03/26 1230 Default Flowsheet Data (most recent) Endurance Tests No documentation. Nursing Nutrition None Nursing Mobility Activity 03/26 1300 Resting in bed 03/26 1200 Resting in bed 03/26 1120 Resting in bed Patient Repositioned 03/26 1300 Supine;Turn self 03/26 1200 Supine;Turn self 03/26 1120 Turn self;Supine Bed Position 03/26 1300 HOB 45 03/26 1200 HOB 30 03/26 1120 HOB 45 03/26 1105 HOB < 20 03/26 1055 HOB < 20 03/26 1045 HOB < 20 03/26 1035 HOB < 20 03/26 1025 HOB < 20 03/26 1015 HOB < 20 03/26 1005 HOB < 20 03/26 0955 HOB < 20 03/26 0945 HOB < 20 03/26 0935 HOB Flat Heels/Feet 03/26 1300 Heels elevated off bed 03/26 1200 Heels elevated off bed 03/26 1120 Heels elevated off bed Range of Motion 03/26 1300 Active;All extremities 03/26 1130 Active;All extremities 03/26 1120 Active;All extremities Type of Device 03/26 1300 Mechanical compression 03/26 1120 Mechanical compression 03/26 1105 Mechanical compression 03/26 1055 Mechanical compression 03/26 1045 Mechanical compression 03/26 1035 Mechanical compression 03/26 1025 Mechanical compression 03/26 1015 Mechanical compression 03/26 1005 Mechanical compression 03/26 0955 Mechanical compression 03/26 0945 Mechanical compression 03/26 0935 Mechanical compression Mechanical Compression Site 03/26 1300 Bilateral 03/26 1120 Bilateral Mechanical Compression Type 03/26 1300 IPC/SCD 03/26 1120 IPC/SCD Mechanical Compression Status 03/26 1300 On 03/26 1120 On , Meds and Admin Active Only All Meds/Most Recent Administrations ceFAZolin (ANCEF) 2,000 mg/20 mL in sterile water (premix) 2,000 mg [[id number]] Ordering Provider: Liliam Curiel DO Status: Completed (Past End Date/Time) Ordered On: 03/26/24530 Starts/Ends: 03/26/24614 - 03/26/24 0746 Ordered Dose (Remaining/Total): 2,000 mg (0/1) Route: intravenous Frequency: Once Ordered Rate/Order Duration: 400 mL/hr / 3 Minutes Admin Instructions: Administer within 60 minutes of incision. Timestamps Action Dose / Duration Route Other Information 03/26/24 0743 Given 2,000 mg 3 Minutes intravenous Performed by: Mehdi Coyne CRNA Lactated Ringer's (LR) infusion [[id number]] Ordering Provider: Mona Fishman NP Status: Verified Ordered On: 03/26/24530 Start: 03/26/24614 Ordered Dose (Remaining/Total): 30 mL/hr (--/--) Route: intravenous Frequency: Continuous Ordered Rate/Order Duration: 30 mL/hr / -- Timestamps Action Rate Route Other Information 03/26/24 0849 New Bag 150 mL/hr intravenous Performed by: Mehdi Coyne CRNA acetaminophen (TYLENOL) tablet 975 mg [[id number]] Ordering Provider: Mona Fishman NP Status: Completed (Past End Date/Time) Ordered On: 03/26/24530 Starts/Ends: 03/26/24614 - 03/26/24 06 Ordered Dose (Remaining/Total): 975 mg (0/1) Route: oral Frequency: Once Ordered Rate/Order Duration: -- / -- Timestamps Action Dose Route Other Information 03/26/24599 Given 975 mg oral Performed by: Tiffany Mckeon RN Scanned Package: [id number], [id number], [id number] famotidine (PEPCID) tablet 20 mg [[id number]] Ordering Provider: Mona Fishman NP Status: Completed (Past End Date/Time) Ordered On: 03/26/24530 Starts/Ends: 03/26/24614 - 03/26/24 06 Ordered Dose (Remaining/Total): 20 mg (0/1) Route: oral Frequency: Once Ordered Rate/Order Duration: -- / -- Timestamps Action Dose Route Other Information 03/26/24599 Given 20 mg oral Performed by: Tiffany Mckeon RN Scanned Package: [id number] tranexamic acid (CYKLOKAPRON) 1,000 mg/100 mL (10 mg/mL) in sodium chloride (premix) 1,000 mg [[id number]] Ordering Provider: Liliam Curiel DO Status: Completed (Past End Date/Time) Ordered On: 03/26/24707 Starts/Ends: 03/26/24744 - 03/26/24755 Ordered Dose (Remaining/Total): 1,000 mg (0/1) Route: intravenous Frequency: Once Ordered Rate/Order Duration: 400 mL/hr / 15 Minutes Admin Instructions: INTRA-OP Infuse over 10 minutes prior to skin incision Timestamps Action Dose Route Other Information 03/26/24755 Given 1,000 mg intravenous Performed by: Mehdi Coyne CRNA tranexamic acid (CYKLOKAPRON) 1,000 mg/100 mL (10 mg/mL) in sodium chloride (premix) 1,000 mg [[id number]] Ordering Provider: Liliam Curiel DO Status: Completed (Past End Date/Time) Ordered On: 03/26/24707 Starts/Ends: 03/26/24744 - 03/26/24928 Ordered Dose (Remaining/Total): 1,000 mg (0/1) Route: intravenous Frequency: Once Ordered Rate/Order Duration: 400 mL/hr / 15 Minutes Admin Instructions: INTRA-OP Infuse over 10 minutes at the start of wound closure. Timestamps Action Dose / Duration Route Other Information 03/26/24913 Given 1,000 mg 15 Minutes intravenous Performed by: Mehdi Coyne CRNA ketorolac (TORADOL) 30 mg/mL injection 15 mg [[id number]] Ordering Provider: Liliam Curiel DO Status: Completed (Past End Date/Time) Ordered On: 10/28/24 0708 Starts/Ends: 03/26/24 0745 - 03/26/24 1015 Ordered Dose (Remaining/Total): 15 mg (0/1) Route: intravenous Frequency: Once Ordered Rate/Order Duration: -- / -- Admin Instructions: INTRA-OP Give at time of skin closure Line Med Link Info Comment Peripheral IV 03/26/24 20 G Left;Posterior Hand 03/26/24 1015 by Selina Napoles RN -- Timestamps Action Dose Route Other Information 03/26/24 1015 Given 15 mg intravenous Performed by: Selina Napoles RN Scanned Package: [id number] (PROTONIX) extended release tablet 40 mg [[id number]] Ordering Provider: Liliam Curiel DO Status: Verified Ordered On: 03/26/241120 Start: 03/26/24 2100 Ordered Dose (Remaining/Total): 40 mg (--/--) Route: oral Frequency: 2 times daily Ordered Rate/Order Duration: -- / -- Admin Instructions: Do not crush, chew, cut, dissolve, open or otherwise manipulate tablet/capsule. (No admins scheduled or recorded for this medication) LORazepam (ATIVAN) tablet 0.5 mg [[id number]] Ordering Provider: Liliam Curiel DO Status: Verified Ordered On: 03/26/241120 Start: 03/26/241120 Ordered Dose (Remaining/Total): 0.5 mg (--/--) Route: oral Frequency: Every 8 hours PRN Ordered Rate/Order Duration: -- / -- (No admins scheduled or recorded for this medication) loratadine (CLARITIN) tablet 10 mg [[id number]] Ordering Provider: Liliam Curiel DO Status: Verified Ordered On: 03/26/24 112 Start: 03/27/24 0900 Ordered Dose (Remaining/Total): 10 mg (--/--) Route: oral Frequency: Daily Ordered Rate/Order Duration: -- / -- (No admins scheduled or recorded for this medication) lisinopriL (PRINIVIL,ZESTRIL) tablet 10 mg [[id number]] Ordering Provider: Moisés, Blakelyn, DO Status: Verified Ordered On: 03/26/241120 Start: 03/26/24 1500 Ordered Dose (Remaining/Total): 10 mg (--/--) Route: oral Frequency: Daily Ordered Rate/Order Duration: -- / -- (No admins scheduled or recorded for this medication) fluticasone propionate (FLONASE) 50 mcg/actuation nasal spray 1 spray [[id number]] Ordering Provider: Liliam Curiel DO Status: Verified Ordered On: 03/26/241120 Start: 03/27/24899 Ordered Dose (Remaining/Total): 1 spray (--/--) Route: each nostril Frequency: Daily Ordered Rate/Order Duration: -- / -- (No admins scheduled or recorded for this medication) Request home supply: doxycycline 40 mg tablet [[id number]] Ordering Provider: Liliam Curiel DO Status: Verified Ordered On: 03/26/241120 Start: 03/27/24899 Ordered Dose (Remaining/Total): 40 mg (--/--) Route: oral Frequency: Daily Ordered Rate/Order Duration: -- / -- Admin Instructions: Give 2 hrs before or 2 hrs after MVI, antacids, or other products containing sucralfate, magnesium, aluminum, iron, or zinc. May be taken without regard to meals. (No admins scheduled or recorded for this medication) atenoloL (TENORMIN) tablet 25 mg [[id number]] Ordering Provider: Liliam Curiel DO Status: Verified Ordered On: 03/26/241120 Start: 03/26/24 2100 Ordered Dose (Remaining/Total): 25 mg (--/--) Route: oral Frequency: Nightly Ordered Rate/Order Duration: -- / -- (No admins scheduled or recorded for this medication) aspirin enteric coated tablet 81 mg [[id number]] Ordering Provider: Liliam Curiel DO Status: Verified Ordered On: 03/26/241120 Start: 03/27/24 09 Ordered Dose (Remaining/Total): 81 mg (--/--) Route: oral Frequency: 2 times daily Ordered Rate/Order Duration: -- / -- Admin Instructions: Do not crush, chew, cut, dissolve, open or otherwise manipulate tablet/capsule. (No admins scheduled or recorded for this medication) sodium chloride 0.9% flush 0.5-20 mL [[id number]] Ordering Provider: Liliam Curiel DO Status: Verified Ordered On: 03/26/241120 Start: 03/26/24 1400 Ordered Dose (Remaining/Total): 0.5-20 mL (--/--) Route: intra-catheter Frequency: Every 8 hours scheduled Ordered Rate/Order Duration: -- / -- Admin Instructions: Flush volume based on line type and size. (No admins scheduled or recorded for this medication) sodium chloride 0.9% flush 0.5-20 mL [[id number]] Ordering Provider: Liliam Curiel DO Status: Verified Ordered On: 03/26/241120 Start: 03/26/241120 Ordered Dose (Remaining/Total): 0.5-20 mL (--/--) Route: intra-catheter Frequency: As needed Ordered Rate/Order Duration: -- / -- Admin Instructions: Flush volume based on line type and size. Flush before and after each use. (No admins scheduled or recorded for this medication) Lactated Ringer's (LR) infusion [[id number]] Ordering Provider: Liliam Curiel DO Status: Verified Ordered On: 03/26/241120 Start: 03/26/24 1200 Ordered Dose (Remaining/Total): 100 mL/hr (--/--) Route: intravenous Frequency: Continuous Ordered Rate/Order Duration: 100 mL/hr / -- Admin Instructions: For at least 24 hours, then reduce to 40 ml/hr when tolerating PO fluids. Discontinue IV when antibiotics are complete and taking PO fluids well. (No admins scheduled or recorded for this medication) ceFAZolin (ANCEF) 2,000 mg/20 mL in sterile water (premix) 2,000 mg [[id number]] Ordering Provider: Liliam Curiel DO Status: Dispensed Ordered On: 03/26/241120 Starts/Ends: 03/26/24 1545 - 03/27/24 0744 Ordered Dose (Remaining/Total): 2,000 mg (2/2) Route: intravenous Frequency: Every 8 hours Ordered Rate/Order Duration: 400 mL/hr / 3 Minutes Admin Instructions: Beginning 8 hours after last rhonda-operative dose. (No admins scheduled or recorded for this medication) acetaminophen (TYLENOL) tablet 975 mg [[id number]] Ordering Provider: Liliam Curiel DO Status: Verified Ordered On: 03/26/241120 Start: 03/26/24 1500 Ordered Dose (Remaining/Total): 975 mg (--/--) Route: oral Frequency: Every 6 hours scheduled Ordered Rate/Order Duration: -- / -- (No admins scheduled or recorded for this medication) ketorolac (TORADOL) 30 mg/mL injection 15 mg [[id number]] Ordering Provider: Liliam Curiel DO Status: Verified Ordered On: 03/26/241120 Starts/Ends: 03/26/24 1600 - 03/27/24 0359 Ordered Dose (Remaining/Total): 15 mg (2/2) Route: intravenous Frequency: Every 6 hours Ordered Rate/Order Duration: -- / -- (No admins scheduled or recorded for this medication) oxyCODONE (ROXICODONE) tablet 5 mg [[id number]] Ordering Provider: Liliam Curiel DO Status: Dispensed Ordered On: 03/26/241120 Start: 03/26/241120 Ordered Dose (Remaining/Total): 5 mg (--/--) Route: oral Frequency: Every 4 hours PRN Ordered Rate/Order Duration: -- / -- Admin Instructions: May repeat in 1 hour if pain is uncontrolled or increasing. Max 2 doses within 1 dosing interval. Timestamps Action Dose Route Other Information 03/26/24 1318 Given 5 mg oral Performed by: Shaniqua Segovia RN Scanned Package: [id number] HYDROmorphone (DILAUDID) injection 0.2 mg [[id number]] Ordering Provider: Liliam Curiel DO Status: Verified Ordered On: 03/26/241120 Start: 03/26/241120 Ordered Dose (Remaining/Total): 0.2 mg (--/--) Route: intravenous Frequency: Every 4 hours PRN Ordered Rate/Order Duration: -- / 2 Minutes Admin Instructions: May administer 1 hour after second dose of 1st line analgesic agent for uncontrolled or increasing pain. (No admins scheduled or recorded for this medication) ondansetron (ZOFRAN) injection 4 mg [[id number]] Ordering Provider: Liliam Curiel DO Status: Verified Ordered On: 03/26/241120 Start: 03/26/241120 Ordered Dose (Remaining/Total): 4 mg (--/--) Route: intravenous Frequency: Every 6 hours PRN Ordered Rate/Order Duration: -- / 2 Minutes Admin Instructions: Proceed to prochlorperazine if no relief within 30 minutes. (No admins scheduled or recorded for this medication) polyethylene glycol (MIRALAX) packet 17 g [[id number]] Ordering Provider: Liliam Curiel DO Status: Verified Ordered On: 03/26/241120 Start: 03/26/241199 Ordered Dose (Remaining/Total): 17 g (--/--) Route: oral Frequency: Daily Ordered Rate/Order Duration: -- / -- Admin Instructions: Hold for diarrhea. (No admins scheduled or recorded for this medication) docusate sodium (COLACE) capsule 100 mg [[id number]] Ordering Provider: Liliam Curiel DO Status: Dispensed Ordered On: 03/26/241120 Start: 03/26/241199 Ordered Dose (Remaining/Total): 100 mg (--/--) Route: oral Frequency: 2 times daily Ordered Rate/Order Duration: -- / -- Admin Instructions: Hold for diarrhea Timestamps Action Dose Route Other Information 03/26/24 1318 Given 100 mg oral Performed by: Shaniqua Segovia RN Scanned Package: [id number] bisacodyL (DULCOLAX) suppository 10 mg [[id number]] Ordering Provider: Liliam Curiel DO Status: Verified Ordered On: 03/26/241120 Start: 03/26/241120 Ordered Dose (Remaining/Total): 10 mg (--/--) Route: rectal Frequency: Daily PRN Ordered Rate/Order Duration: -- / -- (No admins scheduled or recorded for this medication) calcium carbonate (TUMS) chewable tablet 1,000 mg [[id number]] Ordering Provider: Liliam Curiel DO Status: Dispensed Ordered On: 03/26/24 1121 Start: 03/26/24 1200 Ordered Dose (Remaining/Total): 400 mg of elemental calcium (--/--) Route: oral Frequency: 2 times daily Ordered Rate/Order Duration: -- / -- Timestamps Action Dose Route Other Information 03/26/24 1318 Given 1,000 mg oral Performed by: Shaniqua Segovia RN Scanned Package: [id number], [id number] metFORMIN (GLUCOPHAGE) tablet 500 mg [[id number]] Ordering Provider: Liliam Curiel DO Status: Verified Ordered On: 03/26/24 112 Start: 03/26/24 1800 Ordered Dose (Remaining/Total): 500 mg (--/--) Route: oral Frequency: 2 times daily with meals (bkfst, dinner) Ordered Rate/Order Duration: -- / -- Admin Instructions: Take with food (No admins scheduled or recorded for this medication) Lactated Ringer's (LR) infusion [[id number]] Ordering Provider: Jordan Robb MD Status: Dispensed Ordered On: 03/26/24 0950 Start: 03/26/24 1030 Ordered Dose (Remaining/Total): 125 mL/hr (--/--) Route: intravenous Frequency: Continuous Ordered Rate/Order Duration: 125 mL/hr / -- (No admins scheduled or recorded for this medication) diphenhydrAMINE (BENADRYL) 50 mg/mL injection 12.5 mg [[id number]] Ordering Provider: Jordan Robb MD Status: Completed (Past End Date/Time) Ordered On: 03/26/24 0950 Starts/Ends: 03/26/24 0950 - 03/26/24 1045 Ordered Dose (Remaining/Total): 12.5 mg (0/2) Route: intravenous Frequency: Every 15 min PRN Ordered Rate/Order Duration: -- / -- Admin Instructions: Max cumulative dose 50 mg. Line Med Link Info Comment Peripheral IV 03/26/24 20 G Left;Posterior Hand 03/26/24 1025 by Selina Napoles RN -- Timestamps Action Dose Route Other Information 03/26/24 104 Given 12.5 mg intravenous Performed by: Selina Napoles RN Scanned Package: [id number] * Initial Assessments - Melinda Colin RN - 03/26/2024 1:12 PM CDT CM Initial Assessment Interview Note Information Obtained From: Patient (03/26/24 1310) Admission Source: Scheduled surgery from home Impression: R total hip with Dr. Curiel Plan Includes: global engineering manager met with patient at bedside to discuss discharge plans. Patient stated that she plans to return home at discharge with support from her . Patient stated that she needs a wheeled walker. global engineering manager explained home health services, provided list of in-network agencies, and asked if patient had a preference to which home health company was arranged. Patient stated that she does not have a preference. Referrals sent via [employer] packet on chart. Care Management to remain available to assist as needed. Primary Source of Transportation: Does the patient need discharge transport arranged?: No (03/26/24 1310) Health Insurance Coverage: Primary Coverage Payor Plan Insurance Group Employer/Plan Group VBI Vaccines [facility] MEDICARE MEDICARE SOLUTIONS [id number] Payor Plan Address Payor Plan Phone Number Payor Plan Fax Number Effective Dates [address] [address] 03/30/2023 - None Entered [facility] [phone] Subscriber Name Subscriber Date Member ID ISELA KENDALL 1950 [id number] Pharmacy: [id number] AT [facility] [id number] [facility] [address] Primary Care Provider: Baldo Bower MD Prior to Admission: Functional Status: Independent with ADLs Primary Caregiver: Self Support System: Spouse/Significant Other Home Care Services: No Outpatient Services: No Durable Medical Equipment: None Living Arrangements: Spouse/significant other Steps in home?: No steps inside or outside Medication management: Independent (03/26/24 1310) SDOH: Transportation: In the past 12 months, has lack of transportation kept you from medical appointments or from getting medications?: No In the past 12 months, has lack of transportation kept you from meetings, work, or from getting things needed for daily living?: No (03/26/241310) Financial Resource: How hard is it for you to pay for the very basics like food, housing, medical care, and heating?: Not hard at all (03/26/241309) Housing: In the last 12 months, was there a time when you were not able to pay the mortgage or rent on time?: No In the past 12 months, how many times have you moved where you were living?: 0 At any time in the past 12 months, were you homeless or living in a detention (including now)?: No (03/26/241310) Utilities: No, (03/26/241309) Social Connections: In a typical week, how many times do you talk on the phone with family, friends, or neighbors?: Three times a week How often do you get together with friends or relatives?: Three times a week How often do you attend congregation or rastafari services?: Never Do you belong to any clubs or organizations such as congregation groups, unions, fraternal or athletic groups, or school groups?: No How often do you attend meetings of the clubs or organizations you belong to?: Never Are you , , , , never , or living with a partner?: (03/26/241310) Food Insecurity: Within the past 12 months, you worried that your food would run out before you got the money to buymore.: Never true Within the past 12 months, the food you bought just didn't last and you didn't have money to get more.: Never true (03/26/241310) Potential discharge needs include: Home Health: senior care, Physical therapy (03/26/241309) Behavioral Health Services: Behavioral Health Services: No (03/26/241309) Anticipated Level of Care: Anticipated discharge level of care: Home health care Pt/Family agrees with Anticipated Level of Care: Yes (03/26/241309) Patient expects to be Discharged to: Home health care, (03/26/241309) Patient's Identified Problem/Goal Problem: Ensure acute medical needs are met and that patient has a safe discharge plan. Goal: Secure a discharge plan that patient/family are agreeable with and ensure patient has continuum of care. Case management will follow for discharge planning and send referrals as needed. Goals include: To assure continuity of care, To maximize coping skills, To assure patient is in a safe environment and To assure access to community resources. Plan includes: 1. Collaboration with Patient, Provider, Direct Care Nurse, Birth Attendant, and other members of theHealth Care Team to assure needed interventions completed. 2. Return patient to optimal level of self-care post discharge. 3. Medical Record Administrator will follow for Discharge Planning - interventions as needed 4. Anticipated level of care at discharge 5. Planned Discharge Disposition Melinda Colin RN * Op Note - Liliam Cuirel DO - 03/26/2024 9:56 AM CDT NAME: Isela Kendall DATE OF : 1950 CSN: [id number] PRIMARY CARE PHYSICIAN: Baldo Bower MD PROCEDURE DATE: March 26, 2024 PREOPERATIVE DIAGNOSIS: Severe right hip arthritis POSTOPERATIVE DIAGNOSIS: Severe right hip arthritis PROCEDURE(S): Right anterior total hip arthroplasty ATTENDING: Liliam Curiel D.O. ASSISTANTS: Shellfish Weigher: Pao Sandra RN Physician It Program Engagement Director: Davie Hawkins PA Shellfish Weigher Relief: Kylah Locke RN Scrub: Letha Cox RN; Aroldo Serrano RN OR Toy Painter: Yane Rodríguez RT ANESTHESIA: General, Spinal COMPLICATIONS: None SPECIMENS: None EBL: 250mL Physician product safety technical assistant Davie Hawkins was required throughout the case, including preoperatively and postoperatively for their specific skills set with patient positioning, skilled retraction, manipulation of the operative extremity, retraction of tissues and closure. Due to the complexity of the case, the skill set of an orthopedic physician product safety technical assistant was needed throughout the case. No other qualified assistants were available for the case and their assistance was critical to completion of the case in a safe, timely and effective manner. IMPLANTS: Implant Name Type Inv. Item Serial No. Mechanical Shovel Operator Lot No. LRB No. Used Action [employer] Shell Acetabular Emsys Shl 3Hole 48 [id number] - [id number] [employer] Shell Acetabular Emsys Shl 3Hole 48 [id number] [employer] [id number] Right 1 Implanted [employer] Liner Acetabular Emsys Lnr Aox N 48X36 [id number] - [id number] [employer] Liner Acetabular Emsys Lnr Aox N 48X36 [id number] [employer] [id number] Right 1 Implanted [employer] [place] 6.5mm 20mm Acetabular Cancellous Screw Bone Sterile 1217-20-500 - [id number] [employer] [place] 6.5mm 20mm Acetabular Cancellous Screw Bone Sterile 1217-20-500 [employer] [id number] Right 1 Implanted [employer] [place] 6.5mm 25mm Acetabular Cancellous Screw Bone Sterile 1217-25-500 - [id number] [employer] [place] 6.5mm 25mm Acetabular Cancellous Screw Bone Sterile 1217-25-500 [employer] [id number] Right 1 Implanted [employer] Stem Femoral Hip Porous Proximal Collared Actis 95mm Titanium Standard Offset Size 0 [id number] - [id number] [employer] Stem Femoral Hip Porous Proximal Collared Actis 95mm Titanium Standard Offset Size 0 [id number] [employer] [id number] Right 1 Implanted [employer] Articul/june 36mm Cementless Hip +5mm 12/14 [place] Femoral Latex Free [id number] - [id number] [employer] Articul/june 36mm Cementless Hip +5mm 12/14 [place] Femoral Latex Free [id number] [employer] [id number] Right 1 Implanted INDICATIONS: Isela Kendall is a 73 y.o. female with severe right hip arthritis. Patient has failed conservative treatment and has elected for right anterior total hip arthroplasty. The alternatives, risks, benefits, and expected postoperative course were discussed in detail as described in previous notes and all questions were answered. The patient consented and elected to proceed with surgical intervention. PROCEDURE: The patient was brought into the operating room and placed on the [place] table ensuring all bony prominences were padded and perineal post was well padded. The operative extremity was then prepped and draped in standard sterile fashion. A surgical time-out was performed confirming the patient's identity, operative site, procedure to be performed, and administration of pre-operative antibiotics per [facility] guidelines. Tranexamic acid was also utilized, 1 g at the beginning of the procedure and 1 g administered at closing. Anterior approach to the right hip was undertaken by making an incision with a scalpel 2 and half fingerbreadths posterior to the anterior superior iliac spine parallel with the longitudinal aspect of the leg. Dissection was carried down through the subcutaneous tissues to the tensor fascia which was identified. The fascia was split overlying the tensor fascia brett muscle belly and the muscle wasretracted laterally while lifting its fascia superiorly. The deep fascia was then incised and the lateral circumflex vessels were identified and meticulously coagulated with an Aquamantys then ligated. The plane between the rectus and vastus lateralis was identified and the rectus was lifted from the anterior aspect of the femoral head and neck. The capsule was then identified and a T- incision was made through the capsule with each corner being tagged with #5 Ethibond suture. Cobra retractors were utilized to visualize superior and inferior aspects of the femoral neck and a precision saw was utilized to make a well-positioned femoral neck cut with the leg in slight traction in napkin ring fashion. The femoral head and neck were then removed and calipers were utilized to estimate the femoral head diameter. Acetabular retractors were then carefully placed and the labrum and remaining ligamentum teres were removed from the acetabulum. The acetabulum was then initially reamed medially then sequentially to 48 under C-arm fluoroscopy with good bleeding subcortical bone present. A trial acetabular liner of the same diameter was then delicately impacted and found to have good circumferential fit. This was removed and the acetabulum was irrigated with pulse lavage. I then impacted a 48 mm Emsys acetabular cup under fluoroscopy also referencing preoperative x-rays and templates to ensure good positioning. The cup was felt to have adequate fixation within the reamed acetabulum and 2 screws were placed in the posterior superior quadrant to further strengthen fixation. A neutral liner was impacted into the cup and the edge was checked with a long hemostat to ensure it was well seated. The femoral traction was a released and the femoral lift hook was then placed under the proximal aspect of the femur and the leg was rotated to 120?? and brought into an adducted and extended position. The inferior and proximal capsule were released for improved visualization and to enable appropriate access for broaching while minimizing the chance for femoral and greater trochanter fracture. The femur was then elevated with the femoral lift hook. I initially utilized a box osteotome followed by sequential broaching up to a size 0 Actis broach which gave excellent rotational and axial stability and this fit was confirmed to be appropriate under fluoroscopy. The hip was then trialed utilizing a standard offset neck and a +5 mm head which was reduced and visualized under fluoroscopy to match offset and leg lengths with the opposite extremity. Good re-creation of his offset and leg lengthwere noted with these trials, the trial was then dislocated and the femoral stem broach was tested to ensure that still had rotational stability prior to removal. Once the trial implants were removedthe hip was once again thoroughly irrigated. Final femoral implants were placed which included a size 0 standard offset Actis stem and a 36mm, +5 ceramic head. The final implants were reduced and C-arm was utilized to confirm that the implants were well fitting, without noting any fractures or instability and leg lengths and offset were equal to the opposite extremity. The wound was thoroughly irrigated. I closed the capsule with #1 Vicryl suture. I closed the tensorfascia brett fascia with #1 Stratafix and the subcutaneous tissues were closed with 3-0 Vicryl followed by a running 3-0 Monocryl and camille. The incision was dressed with a Prevena incisional wound VAC. The instrument count was correct. The patient was awoken from anesthesia and transported to [facility] in stable condition. Postoperative Plan Orthopedic admit Postoperative x-rays to be obtained in the PACU including AP pelvis, AP operative hip and frog-leg lateral of the operative hip. Once the patient is stable in the PACU they will be transferred to the orthopaedic floor. Postoperative antibiotics: IV Ancef for 24 hours DVT ppx: Continue SCDs, early mobilization and Aspirin 81 mg b.i.d. to be initiated tomorrow morning Weight bear as tolerated bilateral lower extremities with wheeled walker and assistance with anterior hip precautions being cognizant to avoid hip extension and external rotation PT/OT consulted Begin mobilizing with nursing and physical therapy WBAT using a walker as soon as possible. Patient will have physical therapy for gait training and reminder of anterior hip precautions priorto discharge. Patient is to keep incisional wound VAC in place until it automatically stops suction in 7 days, atthat time the patient may remove the dressing and place an island dressing over incision. Patient may shower in 7 days but do not submerge or scrub incision site. A multi-modal pain management strategy will be continued. Patient has a scheduled follow up with JHONNY Hawkins in 10-14 days for wound check and we will perform x-rays including an AP pelvis, AP operative hip and frog-leg lateral of the operative hip at that time. Liliam Curiel DO Orthopedic Surgeon [facility] 03/26/2024 9:56 AM * Perioperative Nursing Note - Guerline Styles RN - 03/14/2024 12:35 PM CDT The following labs from 03/13/24 Pretesting were reviewed for 03/26/24 surgery: [x] CBC [x] CMP [] BMP [] A1C [x] PT/INR [] PTT [x] MRSA Nasal Swab [x] Type and Screen [x] Urine Nicotine Screening [] Urine Microscopic [x] EKG [] CXR [] COVID Ok for surgery per Anesthesia guidelines. Approved for surgery per CIARAN Dunn. No further Interventions at this time. documented in this encounter Plan of Treatment Scheduled Referrals Name Type Priority Associated Diagnoses Order Schedule Ambulatory referral to Home Health Outpatient Referral Routine Aftercare following right hip joint replacement surgery 1 Occurrences starting 03/27/2024 until 09/25/2024 documented as of this encounter Procedures Procedure Name Priority Date/Time Associated Diagnosis Comments POCT GLUCOSE DEVICE Routine 03/27/2024 12:15 PM [...] HOUR IP Routine 03/26/2024 9:10 AM CDT ARTHROPLASTY TOTAL HIP - ANTERIOR APPROACH 03/26/2024 7:23 AM CDT Primary osteoarthritis of right hip Case Notes RTHA B ABO / RH CONFIRMATION TESTING STAT 03/26/2024 6:13 AM CDT POCT GLUCOSE DEVICE Routine 03/26/2024 6 :11 AM CDT documented in this encounter Results * POCT glucose (03/27/2024 12:15 PM CDT) Glucose, POC 125 70 - 199 mg/dL Glucose comment 1 RN/MD Notified ASHOK MORENO Blood 03/27/2024 12:1 5 PM CDT 03/27/2024 12:15 PM CDT Liliam Curiel DO LAB POCT ORDERABLES - DEVICE F inal Result ASHOK MORENO [address] [facility] [place] [address] * POCT glucose (03/27/2024 7:59 AM CDT) [facility] Glucose, POC 105 70 - 199 mg/dL Glucose comment 1 RN/MD Notified ASHOK Blood 03/27/2024 7:59 AM CDT 03/27/2024 7:59 AM CDT us Liliam Curiel DO LAB POCT ORDERABLES - DEVICE F inal Result ASHOK [address] [facility] [place] [address] * eGFR (03/27/2024 5:32 AM CDT) [facility] eGFR >90 >=60 mL/min/1. 73 m2 Comment: [...] BARRY LAB BLOOD ORDERABLES Final Resul t [facility] [address] [facility] Department [place] [address] * (ABNORMAL) Differential, auto (03/27/2024 5:32 AM CDT) Neutrophil abs 8.6(H) 1.5 - 6.5 K/cumm Imm gran abs 0.0 0.0 - 0.1 K/cumm [facility] Lymphocyte abs 3.4(H) 0.8 - 3.3 K/cumm [facility] Monocyte abs 1.2(H) 0.2 - 0.8 K/cumm [facility] Eosinophil abs 0.1 0.0 - 0.5 K/cumm [facility] Basophil abs 0.0 0.0 - 0.1 K/cumm [facility] Neutrophil pct 64.6 % [facility] Comment: Interpretive Data Percent cell count reference ranges are not reported, since discordance with absolute values may lead to misinterpretation of CBC data. Current Interpretive Data was last revised on 2017. Imm gran pct 0.3 % [facility] Comment: Interpretive Data Percent cell count reference ranges are not reported, since discordance with absolute values may lead to misinterpretation of CBC data. Current Interpretive Data was last revised on 2017. Lymphocyte pct 25.4 % [facility] Comment: Interpretive Data Percent cell count reference ranges are not reported, since discordance with absolute values may lead to misinterpretation of CBC data. Current Interpretive Data was last revised on 2017. Monocyte pct 8.8 % [facility] Comment: Interpretive Data Percent cell count reference ranges are not reported, since discordance with absolute values may lead to misinterpretation of CBC data. Current Interpretive Data was last revised on 2017. Eosinophil pct 0.7 % [facility] Comment: Interpretive Data Percent cell count reference ranges are not reported, since discordance with absolute values may lead to misinterpretation of CBC data. Current Interpretive Data was last revised on 2017. Basophil pct 0.2 % [facility] Comment: Interpretive Data Percent cell count reference ranges are not reported, since discordance with absolute values may lead to misinterpretation of CBC data. Current Interpretive Data was last revised on 2017. Blood 03/27/2024 5:32 AM CDT 03/27/2024 6:16 AM CDT Davie BARRY LAB BLOOD ORDERABLES Final Resul t Performing Organization Address [facility] Co de Phone Number [address] [place] [place] [address] * (ABNORMAL) CBC with auto differential (03/27/2024 5:32 AM CDT) WBC 13.3(H) 3.8 - 9.9 K/cumm Hgb 9.7(L) 11.9 - 15.5 g/dL [facility] Hct 28.6(L) 35.6 - 45.5 % [facility] Plt 174 150 - 400 K/cumm [facility] MPV 10.3 9.1 - 12.3 fL [facility] RBC 2.83(L) 3.90 - 5.20 M/cumm [facility] MCV 101.1(H) 81.3 - 96.4 fL [facility] MCH 34.3(H) 27.1 - 33.3 pg [facility] MCHC 33.9 32.3 - 35.7 g/dL [facility] RDW CV 12.2 11.1 - 14.9 % [facility] RDW SD 45.2 35.7 - 48.1 fL [facility] NRBC abs 0.00 0.00 - 0.01 K/cumm [facility] Blood 03/27/2024 5:32 AM CDT 03/27/2024 6:16 AM CDT Davie BARRY LAB BLOOD ORDERABLES Final Resul t Performing Organization Address City/[facility]/ZIP Co de Phone Number [address] [place] [address] * Basic metabolic panel (03/27/2024 5:32 AM CDT) Pathologist [facility] Sodium 139 135 - 145 mmol/L Potassium, pl 3.6 3.3 - 4.9 mmol/L [facility] Chloride 103 97 - 110 mmol/L [facility] CO2 25 22 - 32 mmol/L [facility] Anion gap 11 2 - 15 mmol/L [facility] BUN 13 6 - 25 mg/dL [facility] Creatinine 0.67 0.60 - 1.10 mg/dL [facility] Glucose 98 70 - 199 mg/dL [facility] Comment: Interpretive Data Fasting glucose >/= 126 [...] classification and Diagnosis of Diabetes Diabetes Care 202; 46: S19-S40. Current interpretive data was last revised 2022. Calcium 9.5 8.5 - 10.3 mg/dL [facility] Blood 03/27/2024 5:32 AM CDT 03/27/2024 6:16 AM CDT Davie BARRY LAB BLOOD ORDERABLES Final Resul t ASHOK [address] [facility] Department [place] [address] * (ABNORMAL) POCT glucose (03/26/2024 7:49 PM CDT) Pathologist [facility] Glucose, POC 243(H) 70 - 199 mg/dL Glucose comment 1 Use This Result [facility] Glucose comment 2 RN/MD Notified [facility] Blood 03/26/2024 7:49 PM CDT 03/26/2024 7:49 PM CDT Blakelyn Moisés DO LAB POCT ORDERABLES - DEVICE F inal Result Performing Organization Address [facility] de Phone Number ASHOK [address] [place] [employer] [place] [address] * POCT glucose (03/26/2024 4:46 PM CDT) Glucose, POC 152 70 - 199 mg/dL Glucose comment 1 Use This Result [facility] Glucose comment 2 RN/MD Notified ASHOK Blood 03/26/2024 4:46 PM CDT 03/26/2024 4:46 PM CDT Liliam Perezse DO LAB POCT ORDERABLES - DEVICE F inal Result Performing Organization Address [facility] de Phone Number ASHOK [address] [place] [employer] [place] [address] * POCT glucose (03/26/2024 11:24 AM CDT) Glucose, POC 147 70 - 199 mg/dL Glucose comment 1 Use This Result [facility] Glucose comment 2 RN/MD Notified ASHOK Blood 03/26/2024 11:2 4 AM CDT 03/26/2024 11:24 AM CDT Liliam Moisés DO LAB POCT ORDERABLES - DEVICE F inal Result Performing Organization Address [facility] Co de Phone Number ASHOK [address] [place] [employer] [place] [address] * XR Hip Right 2 or 3 Views W Pelvis (03/26/2024 10:10 AM CDT) Anatomical Region Laterality Modality Lower Extremities, Hip, Pelvis Right C omputed Radiography 03/26/2024 10:3 0 AM CDT Narrative 03/26/2024 10:40 AM CDT EXAM DESCRIPTION: XR HIP RIGHT 2 OR 3 VIEWS W PELVIS REASON FOR STUDY: Pre-Surgery or Post-Surgery Health Examination ?? Post op right hip replacement x 10/28/24. ? TECHNIQUE: Two views right hip. ??Single [...] D: ??03/26/2024 10:40 AM T: Report ID: [id number] Reading Location: ??[id number] Procedure Note Sam Hilton MD - 03/26/2024 [...] signed by Sam ACOSTA T: Report ID: [id number] Reading Location: [id number] Davie BARRY IMG XR PROCEDURES Final Result * POCT glucose (03/26/2024 10:03 AM CDT) Glucose, POC 136 70 - 199 mg/dL Blood 03/26/2024 10:0 3 AM CDT 03/26/2024 10:03 AM CDT us Liliam Curiel DO LAB POCT ORDERABLES - DEVICE F inal Result Performing Organization Address [facility] de Phone Number ASHOK [address] [place] [employer] [place] [address] * FL Fluoroscopy < 1 Hour (03/26/2024 9:10 AM CDT) Narrative [email or web address] - 03/26/2024 9:13 AM CDT The images from this study are not interpreted by Radiology. ??Please refer to the physician's procedure / OR operative note. Marlonadrianna Curiel DO IMG FLUOROSCOPY PROCEDURES Fin al Result Performing Organization Address [facility] de Phone Number [email or web address] * ABO / Rh Confirmation Testing (03/26/2024 6:13 AM CDT) ABO/Rh Confirmation A Positive [facility] Blood 03/26/2024 6:13 AM CDT 03/26/2024 6:20 AM CDT Marlonadrianna Curiel DO LAB BLOOD ORDERABLES Final Res ult Performing Organization Address [facility] de Phone Number [address] [employer] [address] MHB * POCT glucose (03/26/2024 6:11 AM CDT) Glucose, POC 110 70 - 199 mg/dL Blood 03/26/2024 6:11 AM CDT 03/26/2024 6:11 AM CDT Liliam Curiel DO LAB POCT ORDERABLES - DEVICE F inal Result Performing Organization Address [facility] de Phone Number ASHOK [address] [facility] Department [place] [address] documented in this encounter Visit Diagnoses Diagnosis Primary osteoarthritis of right hip- Primary Primary osteoarthritis of right hip [M16.11] Aftercare following right hip joint replacement surgery documented in this encounter Admitting Diagnoses Diagnosis Primary osteoarthritis of right hip documented in this encounter Administered Medications Inactive Administered Medications - up to 3 most recent administrations Medication Order MAR Action Action Date Dose Rate Site acetaminophen (TYLENOL) tablet 975 mg 975 mg (rounded from 1,000 mg), oral, Once, On Tue03/26/24 at 0615, For 1 dose, Pre-Op, Indications: Pre-Emptive AnalgesiaIndications:Pre-Emptive Analgesia Given 03/26/2024 6:00 AM CDT 975 mg acetaminophen (TYLENOL) tablet 975 mg 975 mg (rounded from 1,000 mg), oral, Every 6 hours scheduled, First dose on Tue03/26/24 at 1500, Indications: PainIndications:Pain Given 03/27/2024 8:20 AM CDT 975 mg Given 03/26/2024 9:17 PM CDT 975 mg Given 03/26/2024 3:33 PM CDT 975 mg aspirin enteric coated tablet 81 mg 81 mg, oral, 2 times daily, First dose on Tue03/27/24 at 0900, Do not crush, chew, cut, dissolve, open or otherwise manipulate tablet/capsule., Indications: Deep Vein Thrombosis PreventionIndications:Deep Vein Thrombosis Prevention Given 03/27/2024 8:20 AM CDT 81 mg atenoloL (TENORMIN) tablet 25 mg 25 mg, oral, Nightly, First dose on Tue03/26/24 at 2100 Given 03/26/2024 9:18 PM CDT 25 mg calcium carbonate (TUMS) chewable tablet 1,000 mg 1,000 mg (400 mg of elemental calcium), oral, 2 times daily, First dose on Tue03/26/24 at 1200, Indications: Hypocalcemia PreventionIndications:Hypocalcemia Prevention Given 03/26/2024 9:17 PM CDT 1,000 mg Given 03/26/2024 1:18 PM CDT 1,000 mg ceFAZolin (ANCEF) 2,000 mg/20 mL in sterile water (premix) 2,000 mg 2,000 mg, intravenous, at 400 mL/hr, Administer over 3 Minutes, Every 8 hours, First dose on Tue03/26/24 at 1545, For 2 doses, Beginning 8 hours after last rhonda-operative dose., Indications: Prophylaxis, SurgicalIndications:Prophylaxis, Surgical Given 03/27/2024 12:24 AM CDT 2,000 mg 400 mL/hr Given 03/26/2024 3:33 PM CDT 2,000 mg 400 mL/hr diphenhydrAMINE (BENADRYL) 50 mg/mL injection 12.5 mg 12.5 mg, intravenous, Every 15 min PRN, itching, Starting on Tue03/26/24 at 0950, For 2 doses, Phase I, Max cumulative dose 50 mg., Indications: ItchingIndications:Itching Given 03/26/2024 10:45 AM CDT 12.5 mg Given 03/26/2024 10:25 AM CDT 12.5 mg docusate sodium (COLACE) capsule 100 mg 100 mg, oral, 2 times daily, First dose on Tue03/26/24 at 1200, Hold for diarrhea, Indications: constipationIndications:constipation Given 03/27/2024 8:20 AM CDT 100 mg Given 03/26/2024 9:18 PM CDT 100 mg Given 03/26/2024 1:18 PM CDT 100 mg famotidine (PEPCID) tablet 20 mg 20 mg, oral, Once, On Tue03/26/24 at 0615, For 1 dose, Pre-Op, Indications: gastroesophageal reflux diseaseIndications:gastroesophageal reflux disease Given 03/26/2024 6:00 AM CDT 20 mg fentaNYL (SUBLIMAZE) 50 mcg/mL preservative free injection - ADS Override Pull Starting on Tue03/26/24 at 0942, For 1 dose, Created by erin override fentaNYL (SUBLIMAZE) preservative free injection 25 mcg 25 mcg, intravenous, Every 10 min PRN, For uncontrolled pain use in the pacu only, Starting on Tue03/26/24 at 0950, Phase I, Then proceed to PACU 1st line analgesic., Indications: PainIndications:Pain Given 03/26/2024 10:15 AM CDT 25 mcg Given 03/26/2024 10:05 AM CDT 25 mcg Given 03/26/2024 9:55 AM CDT 25 mcg HYDROcodone-acetaminophen (NORCO) 7.5-325 mg per tablet 1 tablet 1 tablet, oral, Every 4 hours PRN, 1st line for pain, Starting on Tue03/27/24 at 0816, Indications: PainIndications:Pain Given 03/27/2024 9:58 AM CDT 1 ta blet HYDROmorphone (DILAUDID) 2 mg/mL injection - ADS Override Pull Starting on Tue03/26/24 at 0942, For 1 dose, Created by cabinet override HYDROmorphone (DILAUDID) injection 0.4 mg 0.4 mg, intravenous, Administer over 2 Minutes, Every 10 min PRN, 2nd line for pain, Starting on Tue03/26/24 at 0950, Phase I, May administer 10 mintes after 2nd dose of 1st line analgesic agent for uncontrolled or increasing pain. Revert to 1st line dose if POSS of 3. Notify Anesthesiologist if total PACU dose reaches 2 mg and pain score 5/10 or more., Indications: PainIndications:Pain Given 03/26/2024 10:15 AM CDT 0.4 mg Given 03/26/2024 10:05 AM CDT 0.4 mg Given 03/26/2024 9:55 AM CDT 0.4 mg ketorolac (TORADOL) 30 mg/mL injection 15 mg 15 mg, intravenous, Once, On Tue03/26/24 at 0745, For 1 dose, Intra-Op, INTRA-OP Give at time of skin closure, Indications: Postoperatvie Pain ManagementIndications:Postoperatvie Pain Management Given 03/26/2024 10:15 AM CDT 15 mg ketorolac (TORADOL) 30 mg/mL injection 15 mg 15 mg, intravenous, Every 6 hours, First dose on Tue03/26/24 at 1600, For 2 doses, Indications: PainIndications:Pain Given 03/26/2024 9:18 PM CDT 15 mg Given 03/26/2024 3:33 PM CDT 15 mg Lactated Ringer's (LR) infusion 30 mL/hr, intravenous, Continuous, Starting on Tue03/26/24 at 0615, Pre-Op Rate/Dose Verify 03/27/2024 5:39 AM CDT 30 mL/hr 30 mL/hr New Bag 03/26/2024 9:40 PM CDT 30 mL/hr 30 mL/hr New Bag 03/26/2024 8:49 AM CDT 150 mL/hr lisinopriL (PRINIVIL,ZESTRIL) tablet 10 mg 10 mg, oral, Daily, First dose on Tue03/26/24 at 1500 Given 03/27/2024 8:20 AM CDT 10 mg Given 03/26/2024 3:33 PM CDT 10 mg metFORMIN (GLUCOPHAGE) tablet 500 mg 500 mg, oral, 2 times daily with meals (bkfst, dinner), First dose on Tue03/26/24 at 1800, Take with food Given 03/27/2024 8:20 AM CDT 500 mg Given 03/26/2024 5:28 PM CDT 500 mg oxyCODONE (ROXICODONE) tablet 5 mg 5 mg, oral, Every 4 hours PRN, 1st line for pain, Starting on Tue03/26/24 at 1121, May repeat in 1 hour if pain is uncontrolled or increasing. Max 2 doses within 1 dosing interval., Indications: PainIndications:Pain Given 03/27/2024 5:26 AM CDT 5 mg Given 03/27/2024 12:21 AM CDT 5 mg Given 03/26/2024 6:20 PM CDT [address] (PROTONIX) extended release tablet 40 mg 40 mg, oral, 2 times daily, First dose on Tue03/26/24 at 2100, Do not crush, chew, cut, dissolve, open or otherwise manipulate tablet/capsule., Indications: Treatment of Non-Bleeding Gastric DisorderIndications:Treatment of Non-Bleeding Gastric Disorder Given 03/27/2024 8:20 AM CDT 40 mg Given 03/26/2024 9:18 PM CDT 40 mg polyethylene glycol (MIRALAX) packet 17 g 17 g, oral, Daily, First dose on Tue03/26/24 at 1200, Hold for diarrhea., Indications: constipationIndications:constipation Given 03/27/2024 8:20 AM CDT 17 g documented in this encounter Discontinued Medications Medication Sig Discontinue Reason Start Date End Da te traZODone (DESYREL) 50 mg tablet TAKE 1 TABLET BY MOUTH EVERY DAY AT BEDTIME NEEDED FOR INSOMNIA Stop Taking at Discharge 02/07/2024 03/27/2024 documented as of this encounter Active and Recently Administered Medications Times are shown in CDT. Scheduled Medication Order 03/25/2024 03/26/2024 03/27/2024 acetaminophen (TYLENOL) tablet 975 mg (COMPLETED) 975 mg (rounded from 1,000 mg), oral, Once, On Tue03/26/24 at 0615, For 1 dose, Pre-Op, Indications: Pre-Emptive Analgesia 0600 (Given - Provider: Tiffany Mckeon RN) acetaminophen (TYLENOL) tablet 975 mg 975 mg (rounded from 1,000 mg), oral, Every 6 hours scheduled, First dose on Tue03/26/24 at 1500, Indications: Pain 1533 (Given - Provider: Shaniqua Segovia RN)2117 (Given - Provider: Ericka Person, FATMATA) 0334 (Not Given - Provider: Ericka Person RN - Reason: Patient/family refused)0820 (Given - Provider: Shaniqua Segovia RN) aspirin enteric coated tablet 81 mg 81 mg, oral, 2 times daily, First dose on Tue03/27/24 at 0900, Do not crush, chew, cut, dissolve, open or otherwise manipulate tablet/capsule., Indications: Deep Vein Thrombosis Prevention 0820 (Given - Provider: Shaniqua Segovia RN) atenoloL (TENORMIN) tablet 25 mg 25 mg, oral, Nightly, First dose on Tue03/26/24 at 2100 2118 (Given - Provider: Ericka Person RN) calcium carbonate (TUMS) chewable tablet 1,000 mg 1,000 mg (400 mg of elemental calcium), oral, 2 times daily, First dose on Tue03/26/24 at 1200, Indications: Hypocalcemia Prevention 1318 (Given - Provider: Shaniqua Segovia RN)2117 (Given - Provider: Ericka Person RN) 0821 (Not Given - Provider: Shaniqua Segovia RN - Reason: Patient/family refused) ceFAZolin (ANCEF) 2,000 mg/20 mL in sterile water (premix) 2,000 mg (COMPLETED) 2,000 mg, intravenous, at 400 mL/hr, Administer over 3 Minutes, Once, On Tue03/26/24 at 0615, For 1 dose, Pre-Op, Administer within 60 minutes of incision., Indications: Prophylaxis, Surgical 0743 (Given - Provider: Mehdi Coyne CRNA) ceFAZolin (ANCEF) 2,000 mg/20 mL in sterile water (premix) 2,000 mg (COMPLETED) 2,000 mg, intravenous, at 400 mL/hr, Administer over 3 Minutes, Every 8 hours, First dose on Tue03/26/24 at 1545, For 2 doses, Beginning 8 hours after last rhonda-operative dose., Indications: Prophylaxis, Surgical 1533 (Given - Provider: Shaniqua Segovia RN) 0024 (Given - Provider: Ericka Person RN) docusate sodium (COLACE) capsule 100 mg 100 mg, oral, 2 times daily, First dose on Tue03/26/24 at 1200, Hold for diarrhea, Indications: constipation 1318 (Given - Provider: Shaniqua Segovia RN)2118 (Given - Provider: Ericka Person, FATMATA) 0820 (Given - Provider: Shaniqua Seogvia RN) famotidine (PEPCID) tablet 20 mg (COMPLETED) 20 mg, oral, Once, On Tue03/26/24 at 0615, For 1 dose, Pre-Op, Indications: gastroesophageal reflux disease 0600 (Given - Provider: Tiffany Mckeon RN) fluticasone propionate (FLONASE) 50 mcg/actuation nasal spray 1 spray 1 spray, each nostril, Daily, First dose on Tue03/27/24 at 0900 0821 (Not Given - Provider: Shaniqua Segovia RN - Reason: Patient/family refused) ketorolac (TORADOL) 30 mg/mL injection 15 mg (COMPLETED) 15 mg, intravenous, Once, On Tue03/26/24 at 0745, For 1 dose, Intra-Op, INTRA-OP Give at time of skin closure, Indications: Postoperatvie Pain Management 1015 (Given - Provider: Selina Napoles RN) ketorolac (TORADOL) 30 mg/mL injection 15 mg (COMPLETED) 15 mg, intravenous, Every 6 hours, First dose on Tue03/26/24 at 1600, For 2 doses, Indications: Pain 1533 (Given - Provider: Shaniqua Segovia RN)2118 (Given - Provider: Ericka Person, FATMATA) lisinopriL (PRINIVIL,ZESTRIL) tablet 10 mg 10 mg, oral, Daily, First dose on Tue03/26/24 at 1500 1533 (Given - Provider: Shaniqua Segovia RN) 0820 (Given - Provider: Shaniqua Segovia RN) loratadine (CLARITIN) tablet 10 mg 10 mg, oral, Daily, First dose on Tue03/27/24 at 0900 0820 (Not Given - Provider: Shaniqua Segovia RN - Reason: Patient/family refused) metFORMIN (GLUCOPHAGE) tablet 500 mg 500 mg, oral, 2 times daily with meals (bkfst, dinner), First dose on Tue03/26/24 at 1800, Take with food 1728 (Given - Provider: Shaniqua Segovia RN) 0820 (Given - Provider: Shaniqua Segovia RN) pantoprazole DR (PROTONIX) extended release tablet 40 mg 40 mg, oral, 2 times daily, First dose on Tue03/26/24 at 2100, Do not crush, chew, cut, dissolve, open or otherwise manipulate tablet/capsule., Indications: Treatment of Non-Bleeding Gastric Disorder 2117 (Given - Provider: Ericka Person, FATMATA) 0820 (Given - Provider: Shaniqua Segovia, FATMATA) polyethylene glycol (MIRALAX) packet 17 g 17 g, oral, Daily, First dose on Tue03/26/24 at 1200, Hold for diarrhea., Indications: constipation 1318 (Not Given - Provider: Shaniqua Segovia RN - Reason: Patient/family refused) 0820 (Given - Provider: Shaniqua Segovia RN) Request home supply: doxycycline 40 mg tablet 40 mg, oral, Daily, First dose on Tue03/27/24 at 0900, Give 2 hrs before or 2 hrs after MVI, antacids, or other products containing sucralfate, magnesium, aluminum, iron, or zinc. May be taken without regard to meals., Indications: Other (complete free text reason below), Rosacea 0822 (Not Given - Provider: Shaniqua Segovia RN - Reason: Medication not available) sodium chloride 0.9% flush 0.5-20 mL 0.5-20 mL, intra-catheter, Every 8 hours scheduled, First dose on Tue03/26/24 at 1400, Flush volume based on line type and size. 1226 (Not Given - Provider: Shaniqua Segovia RN - Reason: IV Infusing)2154 (Not Given - Provider: Ericka Person RN - Reason: IV Infusing) 0540 (Not Given - Provider: Natalya Garcia RN - Reason: IV Infusing) tranexamic acid (CYKLOKAPRON) 1,000 mg/100 mL (10 mg/mL) in sodium chloride (premix) 1,000 mg (COMPLETED)(Linked Group 1) 1,000 mg, intravenous, at 400 mL/hr, Administer over 15 Minutes, Once, On Tue03/26/24 at 0745, For 1 dose, Intra-Op, INTRA-OP Infuse over 10 minutes prior to skin incision, Indications: Reduction of Perioperative Blood Loss 0756 (Given - Provider: Mehdi Coyne CRNA) tranexamic acid (CYKLOKAPRON) 1,000 mg/100 mL (10 mg/mL) in sodium chloride (premix) 1,000 mg (COMPLETED)(Linked Group 1) 1,000 mg, intravenous, at 400 mL/hr, Administer over 15 Minutes, Once, On Tue03/26/24 at 0745, For 1 dose, Intra-Op, INTRA-OP Infuse over 10 minutes at the start of wound closure., Indications: Reduction of Perioperative Blood Loss 0914 (Given - Provider: Mehdi Coyne CRNA) Continuous Medication Order 03/25/2024 03/26/2024 03/27/2024 Lactated Ringer's (LR) infusion 30 mL/hr, intravenous, Continuous, Starting on Tue03/26/24 at 0615, Pre-Op 0849 (New Bag - Provider: Mehdi Coyne CRNA)0939 (Anesthesia Volume Adjustment - Provider: Mehdi Coyne CRNA)1145 (Stopped - Provider: Shaniqua Segovia RN)2140 (New Bag - Provider: Ericka Person RN) 0539 (Rate/Dose Verify - Provider: Natalya Garcia RN)0818 (Stopped - Provider: Shaniqua Segovia RN) Lactated Ringer's (LR) infusion 100 mL/hr, intravenous, Continuous, Starting on Tue03/26/24 at 1200, For at least 24 hours, then reduce to 40 ml/hr when tolerating PO fluids. Discontinue IV when antibiotics are complete and taking PO fluids well. 1145 (Continued from OR - Provider: Shaniqua Segovia RN) Lactated Ringer's (LR) infusion 125 mL/hr, intravenous, Continuous, Starting on Tue03/26/24 at 1030, Phase I 1145 (Not Given - Provider: Shaniqua Segovia RN - Reason: Other - Comment: 100 ML order) PRN Medication Order 03/25/2024 03/26/2024 03/27/2024 bisacodyL (DULCOLAX) suppository 10 mg 10 mg, rectal, Daily PRN, constipation, Starting on Tue03/26/24 at 1121, Indications: constipation BUPivacaine-EPINEPHrine (MARCAINE with EPI) 0.5 %-1:200,000 preservative free injection (CANCELED) As needed, Starting on Tue03/26/24 at 0915, Intra-Op 0915 (Given - Provider: Liliam Curiel DO) diphenhydrAMINE (BENADRYL) 50 mg/mL injection 12.5 mg (COMPLETED) 12.5 mg, intravenous, Every 15 min PRN, itching, Starting on Tue03/26/24 at 0950, For 2 doses, Phase I, Max cumulative dose 50 mg., Indications: Itching 1025 (Given - Provider: Selina Napoles RN)1045 (Given - Provider: Selina Napoles RN) fentaNYL (SUBLIMAZE) preservative free injection 25 mcg (CANCELED) 25 mcg, intravenous, Every 10 min PRN, For uncontrolled pain use in the pacu only, Starting on Tue03/26/24 at 0950, Phase I, Then proceed to PACU 1st line analgesic., Indications: Pain 0945 (Given - Provider: Selina Napoles RN)0955 (Given - Provider: Selina Napoles RN)1005 (Given - Provider: Selina Napoles RN)1015 (Given - Provider: Selina Napoles RN) HYDROcodone-acetaminophen (NORCO) 7.5-325 mg per tablet 1 tablet 1 tablet, oral, Every 4 hours PRN, 1st line for pain, Starting on Tue03/27/24 at 0816, Indications: Pain 0958 (Given - Provider: Shaniqua Segovia RN) HYDROmorphone (DILAUDID) injection 0.2 mg 0.2 mg, intravenous, Administer over 2 Minutes, Every 4 hours PRN, 2nd line for pain, Starting on Tue03/26/24 at 1121, May administer 1 hour after second dose of 1st line analgesic agent for uncontrolled or increasing pain., Indications: Pain HYDROmorphone (DILAUDID) injection 0.4 mg (CANCELED) 0.4 mg, intravenous, Administer over 2 Minutes, Every 10 min PRN, 2nd line for pain, Starting on Tue03/26/24 at 0950, Phase I, May administer 10 mintes after 2nd dose of 1st line analgesic agent for uncontrolled or increasing pain. Revert to 1st line dose if POSS of 3. Notify Anesthesiologist if total PACU dose reaches 2 mg and pain score 5/10 or more., Indications: Pain 0945 (Given - Provider: Selina Napoles RN)0955 (Given - Provider: Selina Napoles RN)1005 (Given - Provider: Selina Napoles RN)1015 (Given - Provider: Selina Napoles RN) LORazepam (ATIVAN) tablet 0.5 mg 0.5 mg, oral, Every 8 hours PRN, anxiety, Starting on Tue03/26/24 at 1121 morphine preservative free injection (CANCELED) Administer over 4 Minutes, As needed, Starting on Tue03/26/24 at 0916, Intra-Op 0916 (Given - Provider: Liliam Curiel DO) ondansetron (ZOFRAN) injection 4 mg 4 mg, intravenous, Administer over 2 Minutes, Every 6 hours PRN, nausea, vomiting, Starting on Tue03/26/24 at 1121, Proceed to prochlorperazine if no relief within 30 minutes. oxyCODONE (ROXICODONE) tablet 5 mg (CANCELED) 5 mg, oral, Every 4 hours PRN, 1st line for pain, Starting on Tue03/26/24 at 1121, May repeat in 1 hour if pain is uncontrolled or increasing. Max 2 doses within 1 dosing interval., Indications: Pain 1318 (Given - Provider: Shaniqua Segovia, FATMATA)1820 (Given - Provider: Shaniqua Segovia RN) 0021 (Given - Provider: Ericka Person, FATMATA)0526 (Given - Provider: Kaylah Scott, FATMATA) sodium chloride 0.9% flush 0.5-20 mL 0.5-20 mL, intra-catheter, As needed, line care, Starting on Tue03/26/24 at 1121, Flush volume based on line type and size. Flush before and after each use. sodium chloride 0.9% irrigation (CANCELED) As needed, Starting on Tue03/26/24 at 0913, Intra-Op 0913 (Given - Provider: Liliam Curiel DO) Linked Groups Order Group 1: tranexamic acid (CYKLOKAPRON) 1,000 mg/100 mL (10 mg/mL) in sodium chloride (premix) 1,000 mg (COMPLETED)Jump to med 1,000 mg, intravenous, at 400 mL/hr, Administer over 15 Minutes, Once, On Tue03/26/24 at 0745, For 1 dose, Intra-Op, INTRA-OP Infuse over 10 minutes prior to skin incision, Indications: Reduction of Perioperative Blood Loss And tranexamic acid (CYKLOKAPRON) 1,000 mg/100 mL (10 mg/mL) in sodium chloride (premix) 1,000 mg (COMPLETED)Jump to med 1,000 mg, intravenous, at 400 mL/hr, Administer over 15 Minutes, Once, On Tue03/26/24 at 0745, For 1 dose, Intra-Op, INTRA-OP Infuse over 10 minutes at the start of wound closure., Indications: Reduction of Perioperative Blood Loss documented in this encounter Orders Medications Ordered That Srikanth ht Not Have Been Administered Count Last Ordered Date First Ordered Date bisacodyL (DULCOLAX) suppository 10 mg 1 BUPivacaine-EPINEPHrine (MAR DENIZ with EPI) 0.5 %-1:200,000 preservative free injection 1 03/26/2024 ceFAZolin (ANCEF) 2,000 mg/2 0 mL in sterile water (premix) 2,000 mg 1 03/26/2024 dexAMETHasone (DECADRON) pre servative free solution 10 mg 1 03/26/2024 fentaNYL (SUBLIMAZE) preserv ative free injection 50 mcg 1 03/26/2024 fluticasone propionate (FLON ASE) 50 mcg/actuation nasal spray 1 spray 1 03/26/2024 hydrALAZINE (APRESOLINE) injection 5 mg 1 1 HYDROmorphone (DILAUDID) injection 0.2 mg 2 03/26/2024 labetaloL (NORMODYNE,TRANDAT E) injection 5 mg 1 03/26/2024 Lactated Ringer's (LR) infusion 2 lidocaine (XYLOCAINE) 10 mg/ mL (1 %) injection 2-10 mg 1 03/26/2024 loratadine (CLARITIN) tablet 10 mg 1 2023 LORazepam (ATIVAN) tablet 0.5 mg 1 03/26/20 meperidine (DEMEROL) preserv ative free injection 25 mg 1 03/26/2024 metoclopramide (REGLAN) 5 mg /mL injection 10 mg 1 03/26/2024 morphine preservative free injection 1 02/28 naloxone (NARCAN) 0.4 mg/mL injection 0.04-0.4 mg 1 03/26/2024 ondansetron (ZOFRAN) injection 4 mg 2 03/26 Request home supply: doxycyc line 40 mg tablet 1 03/26/2024 sodium chloride 0.9% flush 0.5-20 mL 2 02/28 sodium chloride 0.9% irrigation 1 tranexamic acid (CYKLOKAPRON ) 1,000 mg/100 mL (10 mg/mL) in sodium chloride (premix) 1,000 mg 2 03/26/2024 Lab Orders Without Results Count Last Ordered D ate First Ordered Date POCT GLUCOSE DEVICE 1 03/26/2024 General Supply Count Last Ordered Date First Or dered Date COMMODE 1 03/27/2024 WALKER 1 03/27/2024 Diet Count Last Ordered Date First Orde red Date ADULT DISCHARGE DIET 1 03/27/2024 Nursing Count Last Ordered Date First Orde red Date DISCHARGE ACTIVITY 1 03/27/2024 DISCHARGE CALL PROVIDER 5 03/27/2024 DISCHARGE DRESSING 1 03/27/2024 FOLLOW UP WITH ESTABLISHED PROVIDER 1 03/27 Consult Count Last Ordered Date First Orde red Date IP CONSULT TO SOCIAL WORK 1 03/26/2024 Admission Count Last Ordered Date First Orde red Date INITIATE OUTPATIENT IN A BED 1 03/26/2024 Discharge Count Last Ordered Date First Orde red Date DISCHARGE PATIENT 1 03/27/2024 documented in this encounter Care Teams Staff Readiness Officer Relationship Specialty Start Date End Date Baldo Bower MD PCP - General Family Practice 11/03/23 Liliam Curiel DO [address] [facility] [address] [place] [id number] Consulting Physician Orthopedic Surgery 03/27/24 documented as of this encounter
--- OUTSIDE RECORDS SUMMARY | 2024-06-12 07:40 | XMS_ITS | Encounter Summary ---
Author Organization [facility] Healthcare Address [address] [place] [address] Care Team Providers Care Blasting Entryman Name Role Phone Baldo Bower MD Primary Care Provider + [phone] Reason for Visit * Reason Comments OT Initial Eval Pre-sx THR evaluatio n * Occupational Therapy (Routine) - Closed Specialty Diagnoses / Procedures Referred By Shari crenshaw Referred To Contact Occupational Therapy Diagnoses Primary osteoarthritis of right hip Lacy Alvarado DO [address] [place] [phone] Phone: tel: fax: [facility] OP Physical Therapy [address] [place] [phone] Phone: tel: fax: Referral ID Status Reason Start Date Expiration Date V isits Requested Visits Authorized [id number] Closed Evaluate and Treat 02/23/2024 05/29/2024 1 1 Encounter Details Date Type Department Care Team (Late st Contact Info) Description 03/13/2024 1:00 PM CDT Therapy [facility] OP Occup Therapy [address] [place] [id number] Devika Souza OT Primary osteoarthritis of right hip (Primary Dx) Social History Tobacco Use Types Packs/Day Years Used Date Smoking Tobacco: Former Cigarettes 1.5 18 S tarted: 1986 Passive Smoke Exposure: Past Smokeless Tobacco: Never AUDIT-C Answer Date Recorded Q1: How often do you have a drink containing alc ohol? 2-4 times a month 03/13/2024 Q2: How many drinks containi ng alcohol do you have on a typical day when you are drinking? 1 or 2 03/13/2024 Q3: How often do you have si x or more drinks on one occasion? Never 03/13/2024 Personal Safety Answer Date Recorded Have you ever been in or are you currently in a harmful physical or emotional relationship or is someone making you feel afraid or unsafe? 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 Occupational Therapy Evaluation/Initial Certification 03/13/2024 Isela Kendall 1950 73 y.o. female LACY ALVARADO ICD-10-CM 1. 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; takes valacyclovir daily for History of COVID-19 not hospitalized History of pneumonia 1980; hospitalized for 2 weeks History of seizures x 1 2018; all testing negative; never on meds History of vertigo Hypercholesterolemia High cholesterol; Comments: KSA 05/13/2015 - Hypertension Hypertension Macular degeneration Osteoarthritis RLS (restless legs syndrome) Skin cancer, basal cell 2012 LEFT THIGH Wears glasses Past Surgical History: Procedure Laterality Date CHOLECYSTECTOMY COLONOSCOPY 2019 EYE SURGERY Bilateral cataracts FLUORO GUIDED INJECTION HIP RIGHT Right 06/01/2023 FLUORO GUIDED INJECTION HIP RIGHT Right 11/10/2023 HYSTERECTOMY and 1 ovary removed OOPHERECTOMY 1986 TONSILLECTOMY as a child Precautions: Instructed in anterior precautions Geotechnical Laboratory Technician Services Utilized: NO Patient is identified by name and date of on this visit. Subjective Patient reports they will undergo a Right MARY with Dr. Alvarado on 03/26/24. Patient's history of hip pain began years ago but increased following a fall in Apr 2023. Current pain ratin/10 At worst pain ratin/10 Exacerbating Factors: walking on inclines and driving/sitting in a car. Relieving Factors: Gentle movement, rest Function Current Functional Deficits: reports that she has difficulty managing steps, inclines, or tolerating driving/sitting in a car for more than 30 min intervals. Prior Level of Function: Indep with activities of daily living including household and community activities, driving, and all work-related responsibilities. Pt has had 3 falls (tripped over car araceli in garage, stepped into a covered hole in the yard, fell off of a ladder) since April 2023. 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 Bedroom on First level. Full bathroom on first level. WI shower. Taller toilet. Lives with: spouse Patient plans to go to home after surgery with support/assist from spouse. Has a son that will be visiting to assist as well. Objective: Current ADL status: Lower body bathing/dressing: Indep Toileting: Indep Upper body bathing/dressing.Indep Grooming: Indep Current IADL status: Cooking: Indep Cleaning: Indep Driving: Indep, but painful Shopping: Indep Medication management: Indep Gait Assessment: Antalgic gait favoring R LE Leg Strength RIGHT LEFT Hip flexion 4/5 5/5 Hip abduction 3/5 5/5 Knee extension 5/5 5/5 Knee flexion 5/5 5/5 ROM Deficits: R hip flexion limited to approx 100 degrees, ABD 30 degrees with pain reported, IR<5 degrees, ER 30 degrees Treatment performed this date: Occupational therapy evaluation focused on patient and caregiver education. The following topics were discussed and the patient verbalized understanding to all education provided. -Gait training with front wheeled walker as well as single point cane -Stair training and safe ascent/descent of stairs to enter the home - Shower vs Tub/shower transfer training with and without DME -Wound care/ surgical incision care -Home exercises with MARY handout provided, to be performed pre- and post- operatively. See exercise handout. -Ice modality: 20 minutes at a time, 3-5 times per day -Progression from inpatient to home health therapy and then to outpatient physical therapy -Plan of care following total hip arthroplasty, expectations, total hip precautions -Safe use of adaptive equipment, need for adaptive equipment/DME in the home -Safe positioning in chairs, bed, etc to maintain hip precautions Assessment: Patient will undergo a total hip arthroplasty. Patient is appropriate for Occupational Therapy evaluation only, discharged to independent home exercise program and compensatory ADL/IADL strategies to prepare for total hip arthroplasty. The patient verbalized understanding to all education provided. Short term goals to be met by 03/13/24 Patient will verbalize understanding to all education provided today, including hip precautions- MET Patient able to ask questions regarding upcoming procedure - MET Patient instructed in home exercises, proper use of assistive device, and stair training - MET Patient to able to verbalize understanding of AE/DME recommendations to ensure compliance of hip precautions with ADL/IADL tasks.- MET Patient to demonstrate understanding of compensatory strategies for ADL/IADL/functional transfers. - MET Plan: Patient will benefit from skilled therapy services 1 times per week for 1 week for therapeutic exercise, ADL training, and patient education. The patient is discharged to a home exercise program to prepare for upcoming surgery. Devika Souza OT [facility] ATTENTION PHYSICIAN If you are unable to electronically sign this document, please print this document and sign below to certify this plan of care/treatment plan. By signing this document, I certify that I have reviewedthis plan of care and support the treatment. Please fax back to . Thank you. Provider Signature: Date: documented in this encounter Plan of Treatment Not on file documented as of this encounter Visit Diagnoses Diagnosis Primary osteoarthritis of right hip- Primary documented in this encounter Orders Outpatient Referral Count Last Ordered Date Fir st Ordered Date AMB REFERRAL ORDER TO OCCUPATIONAL THERAPY 1 03/13/2024 documented in this encounter Care Teams Blasting Entryman Relationship Specialty Start Date End Date Baldo Bower MD PCP - General Family Practice 11/03/23 documented as of this encounter
--- OUTSIDE RECORDS SUMMARY | 2024-06-12 07:40 | XMS_ITS | Encounter Summary ---
Author Organization [facility] Healthcare Address [address] [place] [address] Care Team Providers Care Parent Coach Name Role Phone Baldo Bower MD Primary Care Provider [phone] Reason for Referral * MRI/CAT/PET Scan (Routine) - Closed Specialty Diagnoses / Procedures Referred By Shari crenshaw Referred To Contact Radiology Diagnoses Primary osteoarthritis of right hip Procedures MRI Hip Right WO Contrast Lacy Curiel DO [address] [place] [address] DR [address] [place] [address] Phone: tel: fax: [address] [phone] Referral ID Status Reason Start Date Expiration Date Visits Re quested Visits Authorized [id number] Closed 01/10/2024 02/08/2025 1 1 Encounter Details Date Type Department Care Team (Late st Contact Info) Description 01/10/2024 Orders Only [facility] Orthopedics and Sports Medicine [address] [place] [phone] Lacy Curiel DO [address] [place] [address] [place] [address] Primary osteoarthritis of right hip (Primary Dx) Social History Tobacco Use Types Packs/Day Years Used Date Smoking Tobacco: Former Smokeless Tobacco: Never Personal Safety Answer Date Recorded Getting School Help Needed Not on file 05/13 Comments Unknown Sex and Gender Information Value Date Recorded Sex Assigned at Not on file 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 Hip pain, chronic, impingement suspected, articular cartilage eval, xray done ? TECHNIQUE: Multiplanar, multisequence MRI of the ??right hip ??was performed ?? without contrast. COMPARISON: 05/13/2023 FINDINGS: Within the right hip, on this non arthrographic evaluation, there is degenerative tearing of the superolateral acetabular labrum. ??There is mild right hip chondrosis. ??Small right hip effusion is present. ??The ligamentum teres is intact. The left femoral head is well seated. A physiologic amount of fluid is present within the joint space. There is mild left hip chondrosis. ??There is no evidence of femoral head osteonecrosis or femoral neck stress fracture. The piriformis muscles are symmetric. The sciatic nerves are normal in course and morphology. The adductor tendons and musculature appear normal. The gluteal tendons and musculature appear normal. There is mild left greater trochanteric bursitis. There is bilateral hamstring origin tendinopathy with partial-thickness insertional tearing and ischial bursitis, right greater than left. IMPRESSION: Degenerative tearing of the right superolateral acetabular labrum. Mild bilateral hip chondrosis with a small right hip effusion. Bilateral hamstring origin tendinopathy with partial-thickness insertional tearing and ischial bursitis, right greater than left. Mild left greater trochanteric bursitis. THIS IS AN ELECTRONICALLY VERIFIED FINAL REPORT 01/25/2024 8:48 AM - Electronically signed by ??Sam MCDONALD: TAMARA D: ??01/25/2024 8:48 AM T: ??01/25/2024 8:48 AM Report ID: [id number] Reading Location: ??[id number] Procedure Note Sam Rice MD - 01/25/2024 EXAM DESCRIPTION: MRI HIP RIGHT WO CONTRAST REASON FOR STUDY: Hip pain, impingement suspected, nondiagnostic xray, Hip pain, chronic, articular cartilage eval, xray done Hip pain, chronic, impingement suspected, articular cartilage eval, xraydone TECHNIQUE: Multiplanar, multisequence MRI of the right hip was performed without contrast. COMPARISON: 05/13/2023 FINDINGS: Within the right hip, on this non arthrographic evaluation, there is degenerative tearing of the superolateral acetabular labrum. There ismild right hip chondrosis. Small right hip effusion is present. Theligamentum teres is intact. The left femoral head is well seated. A physiologic amount of fluid ispresent within the joint space. There is mild left hip chondrosis. There is no evidence of femoral head osteonecrosis or femoral neck stress fracture. The piriformis muscles are symmetric. The sciatic nerves are normal incourse and morphology. The adductor tendons and musculature appear normal. The gluteal tendons and musculature appear normal. There is mild left greater trochanteric bursitis. There is bilateral hamstring origin tendinopathywith partial-thickness insertional tearing and ischial bursitis, right greaterthan left. IMPRESSION: Degenerative tearing of the right superolateral acetabular labrum. Mild bilateral hip chondrosis with a small right hip effusion. Bilateral hamstring origin tendinopathy with partial-thicknessinsertional tearing and ischial bursitis, right greater than left. Mild left greater trochanteric bursitis. THIS IS AN ELECTRONICALLY VERIFIED FINAL REPORT 01/25/2024 8:48 AM - Electronically signed by Sam MCDONALD: TAMARA Report ID: [id number] Reading Location: [id number] Lacy Curiel DO IMG MRI PROCEDURES Final Resul t documented in this encounter Visit Diagnoses Diagnosis Primary osteoarthritis of right hip- Primary Primary osteoarthritis of right hip documented in this encounter Care Teams Parent Coach Relationship Specialty Start Date End Date Baldo Bower MD PCP - General Family Practice 11/03/23 documented as of this encounter
--- OUTSIDE RECORDS SUMMARY | 2024-06-12 07:40 | XMS_ITS | Encounter Summary ---
Author Organization [facility] Healthcare Address [address] [place] [address] Care Team Providers Care Radioisotope Technician Name Role Phone Baldo Bower MD Primary Care Provider [phone] Reason for Visit * Reason Onset Date Comments Sailaja w/PT faxing form again 03/08/2024 Encounter Details Date Type Department Care Team (Late st Contact Info) Description 03/08/2024 Telephone [facility] Group Orthopedics and Sports Medicine [address] [place] [phone] Lacy Curiel DO [address] [place] [phone] Sailaja w/PT faxing form again Social History Tobacco Use Types Packs/Day Years Used Date Smoking Tobacco: Former Smokeless Tobacco: Never AUDIT-C Answer Date Recorded [...] on file 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 in [place] will be faxing a form(says she had already faxed once but didn't get it back). It needs to be signed by Dr. Curiel and faxed back to her as soon as possible. documented in this encounter Plan of Treatment Not on file documented as of this encounter Visit Diagnoses Not on filedocumented in this encounter Care Teams Radioisotope Technician Relationship Specialty Start Date End Date Baldo Bower MD PCP - General Family Practice 11/03/23 documented as of this encounter
--- OUTSIDE RECORDS SUMMARY | 2024-06-12 07:40 | XMS_ITS | Encounter Summary ---
Author Organization [facility] Healthcare Address [address] [place] [address] Care Team Providers Care Finisher Accordion Name Role Phone Baldo Bower MD Primary Care Provider [phone] Reason for Visit * Auth/Cert (Routine) Specialty Diagnoses / Procedures Referred By Contac t Referred To Contact Diagnoses Primary osteoarthritis of right hip Primary osteoarthritis of right hip [M16.11] Procedures MT ARTHRP ACETBLR/PROX FEM PROSTC AGRFT/ALGRFT ANTERIOR APPROACH, RIGHT TOTAL HIP ARTHROPLASTY Referral ID Status Reason Start Date Expiration Date Visits Re quested Visits Authorized [id number] 1 1 Encounter Details Date Type Department Care Team (Late st Contact Info) Description 03/26/2024 7:26 AM CDT Anesthesia Event [address] [address] Jordan Robb MD [address] [place] [id number] Sherrell Juarez MD [address] [facility] [phone] [place] [id number] Anesthesia Record Procedure Summary Procedure Name Responsible Anesthesiologist Anesthesia Start Time Anesthesia Stop Time ANTERIOR APPROACH, RIGHT TOTAL HIP ARTHROPLASTY (Right: Hip) Jordan Robb MD 03/26/24 0726 03/26/24 0939 Events Date Time Event Comment 03/26/2024 0615 0723 In Room 0726 An Start 0726 An Start Data 0728 An Induction The patient was reevaluated immediately before moderate or deep sedation use and before anesthesia induction. 0731 An Intubation 0745 Anesthesia Ready 0756 Proc Start 0925 Proc Fin 0931 An Extubation 0931 an stop data 0932 Out of Room 0939 Handoff to RN I completed my handoff to the receiving nurse during which we: 1. Patient identified 2. Responsible provider identified 3. Pertinent medical history reviewed 4. Procedure type and surgical course discussed 5. Intraoperative anesthetic management and any significant issues discussed 6. Expectations and concerns for postop period discussed 7. Questions solicited from receiving nurse 8. Patient disposition at the time of handoff: No value filed. 0939 An Stop Meds Name Total fentaNYL 50 mcg/mL PF 100 mcg lidocaine (cardiac) syringe 2 % 60 mg propofol 160 mg rocuronium 60 mg ondansetron PF 4 mg dexamethasone 4 mg/mL 4 mg ceFAZolin (ANCEF) 2,000 mg/20 mL in ster ile water (premix) 2,000 mg 2,000 mg tranexamic acid (CYKLOKAPRON ) 1,000 mg/100 mL (10 mg/mL) in sodium chloride (premix) 1,000 mg 1,000 mg tranexamic acid (CYKLOKAPRON ) 1,000 mg/100 mL (10 mg/mL) in sodium chloride (premix) 1,000 mg 1,000 mg HYDROmorphone 2 mg/mL 1.4 mg phenylephrine syringe 1 mg/10 ml 600 mcg sugammadex 200 mg Lactated Ringer's (LR) infusion 1,500 mL * Agents Name O2% N2O O2 N2O Air Sevoflurane Inspired Sevoflurane * Blood No blood administrations on file. Lines, Drains, and Airways Type Details Placement Removal Wound 03/26/24; 0756; N; Incision; Hip/trochanter; Anterior, Right 03/26/24 0756 by Pao Sandra RN Peripheral IV Placement Date: 02/28 01/20; Placement Time: 0614; Catheter Size: 20 G; Orientation: Left, Posterior; Location: Hand; Site Prep: Chlorhexidine; Insertion Attempts: 1; Patient Tolerance: Tolerated well; Removal Date: 03/27/24; Removal Time: 0830; Removal Reason: Drainage 03/26/24613 by Tiffany Mckeon RN 03/27/24829 by Shaniqua Segovia RN ETT Placement Date: 02/28 01/20; Placement Time: 801 (created via procedure documentation); Mask Ventilation: 1; Technique: Direct laryngoscopy; Type: ETT - single; Single Lumen Tube Size: 7 mm; Cuffed: Yes; Laryngoscope: Brianda; Blade Size: 3; Location: Oral; Grade View: Grade I; Insertion Attempts: 1; Placement Verification: Capnometry; Removal Date: 03/26/24; Removal Time: 93003/26/24801 by Mehdi Coyne CRNA 03/26/24930 by Mehdi Coyne CRNA documented in this encounter Social History Tobacco Use Types Packs/Day Years Used Date Smoking Tobacco: Former Cigarettes 1.5 18 S tarted: 1986 Passive Smoke Exposure: Past Smokeless Tobacco: Never [facility] [employer] Answer Date Recorded In the past 12 months has [employer], gas, oil, or water [email or web address] threatened to shut off services in your [...] often do you attend chur ch or oriental orthodox services? 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 Gender Identity Not on file Sexual Orientation Not on file documented as of this encounter OR Notes * Anesthesia Postprocedure Evaluation - Jordan Robb MD - 03/26/2024 10:42 AM CDT Patient: Isela Kendall Procedure Summary Date: 03/26/24 Room / Location: [facility] / [facility] Anesthesia Start: 725 Anesthesia Stop: 938 Procedure: ANTERIOR APPROACH, RIGHT TOTAL HIP ARTHROPLASTY (Right: Hip) Diagnosis: Primary osteoarthritis of right hip (Primary osteoarthritis of right hip [M16.11]) Surgeons: Lacy Curiel DO Responsible Provider: Jordan Robb MD Anesthesia Type: general ASA Status: 3 Anesthesia Type: general Last vitals BP 140/83 (BP Location: Right arm, Patient Position: Lying) Pulse 89 Temp 36.9 ??C (98.4 ??F) (Temporal) Resp 15 SpO2 98% Anesthesia Post Evaluation Patient location during evaluation: PACU Patient participation: complete - patient participated Level of consciousness: fully awake Pain management: adequate Airway patency: adequate Evidence of recall: no Cardiovascular status: acceptable Respiratory status: acceptable Hydration status: acceptable Pt is: normothermic Nausea/Vomiting status: none No notable events documented. * Anesthesia Procedure Notes - Mehdi Coyne CRNA - 03/26/2024 8:01 AM CDTAssociated Order(s): Airway Airway Patient location: OR Urgency: elective Indications for airway management: anesthesia Difficult airway: no Staff: Placed by: CENTRIFUGE SEPARATOR TENDER: Mehdi Coyne CRNA Emergent airway documentation: Risks [...] secured with: other Number of attempts: 1no * Anesthesia Preprocedure Evaluation - Jordan Robb MD - 03/26/2024 6:14 AM CDT Images from the original note were not included. Anesthesia Evaluation Isela Sheila Kendall is a 73 y.o. female ANTERIOR APPROACH, RIGHT TOTAL HIP ARTHROPLASTY (Right: Hip) Pre-Op Diagnosis Codes: * Primary osteoarthritis of right hip [M16.11] HISTORY Past Medical History Information obtained from: patient and chart. Information obtained during: In Person Neurological + Seizures Comments: RLS Cardiovascular + Hypertension + Hyperlipidemia Comments: Normal EKG 02/2024 Gastrointestinal + GERD Musculoskeletal/Pain + Osteoarthritis Endocrine / Other + Diabetes mellitus - Diabetes type 2. + Cancer history- skin cancer only. Functional Capacity Functional capacity: >10 METs Patient Active Problem List Diagnosis Date Noted ??? Primary osteoarthritis of right hip 02/23/2024 ??? Convulsions (HCC) ??? Abnormal mammogram 11/23/2016 ??? Mass of breast 11/23/2016 ??? Disorder of sacrococcygeal spine 03/19/2016 ??? Piriformis syndrome 03/19/2016 Past Medical History: Diagnosis Date ??? Allergic rhinitis ??? Arthritis ??? Cancer (CMS/HCC) (HCC) basal cell left leg 2010's ??? Dental bridge present top right ??? Dental crowns present several ??? Diabetes mellitus (HCC) ??? Gastric reflux ??? 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 History of COVID-19 not hospitalized ??? History of pneumonia 1980; hospitalized for 2 weeks ??? History of seizures x 1 2018; all testing negative; never on meds ??? History of vertigo ??? Hypercholesterolemia High cholesterol; Comments: KSA 05/13/2015 - ??? Hypertension Hypertension ??? Macular degeneration ??? Osteoarthritis ??? RLS (restless legs syndrome) ??? Skin cancer, basal cell 2013 LEFT THIGH ??? Wears glasses Past Surgical History: Procedure Laterality Date ??? CHOLECYSTECTOMY ??? COLONOSCOPY 2019 ??? EYE SURGERY Bilateral cataracts ??? FLUORO GUIDED INJECTION HIP RIGHT Right 06/01/2023 ??? FLUORO GUIDED INJECTION HIP RIGHT Right 11/10/2023 ??? HYSTERECTOMY and 1 ovary removed ??? OOPHERECTOMY 1986 ??? TONSILLECTOMY as a child OB History 2 Para 2 Term 2 AB Living SAB IAB Ectopic Multiple Live Births Allergies Allergen Reactions ??? Keflex [Cephalexin] Hives Happened in 1974. Does not know if she has ever had Ancef. ??? Sulfa (Sulfonamide Antibiotics) Rash ??? Penicillins Other (See comments) Massive hives, choked up, spent 36 hours in the ED , facial swelling, throat swelling, skin turnedred. 1975 Taking? Last Dose Start Date End Date Provider acetaminophen ER (TYLENOL) 650 mg 8 hr tablet 03/25/2024 -- -- ProviderLynne MD atenoloL (TENORMIN) 25 mg tablet 03/25/2024 03/17/23 -- Provider, MD Lynne cholecalciferol (VITAMIN D-3) 2000 unit tablet 03/26/2024 -- -- Provider, MD Lynne Cholestyramine Light 4 gram powder Unknown 02/08/24 -- Provider, MD Lynne doxycycline (PERIOSTAT) 20 mg tablet 03/25/2024 -- -- ProviderLynne MD ferrous sulfate 325 mg (65 mg of elemental iron) tablet 03/26/2024 -- -- Provider, MD Lynne fluticasone propionate (FLONASE ALLERGY RELIEF NASL) 03/25/2024 -- -- Provider, MD Lynne glucosamine-chondroitin 250-200 mg tablet 03/16/2024 -- -- Provider, MD Lynne lisinopriL (PRINIVIL,ZESTRIL) 10 mg tablet 03/25/2024 03/30/23 -- Provider, MD Lynne loratadine 10 mg capsule 03/25/2024 -- -- Provider, MD Lynne LORazepam (ATIVAN) 0.5 mg tablet Past Week -- -- Provider, MD Lynne meloxicam (MOBIC) 7.5 mg tablet 03/16/2024 -- -- Provider, MD Lynne metFORMIN (GLUCOPHAGE) 500 mg tablet 03/25/2024 09/20/17 -- Provider, MD Lynne pantoprazole DR (PROTONIX) 40 mg EC tablet 03/26/2024 -- -- ProviderLynne MD rosuvastatin (CRESTOR) 20 mg tablet 03/25/2024 -- -- ProviderLynne MD traZODone (DESYREL) 50 mg tablet Not Taking 02/07/24 -- Provider, MD Lynne UNABLE TO FIND 03/16/2024 -- -- ProviderLynne MD UNABLE TO FIND 03/16/2024 -- -- ProviderLynne MD valACYclovir (VALTREX) 500 mg tablet 03/25/2024 -- -- Lynne Giraldo MD vitamins A,C,C-jker-adjrge (ICAPS) 4,296 mcg-226 mg-90 mg capsule 03/16/2024 -- -- ProviderLynne MD Current Facility-Administered Medications: ??? ceFAZolin (ANCEF) 2,000 mg/20 mL in sterile water (premix) 2,000 mg, 2,000 mg, intravenous, Once ??? Lactated Ringer's (LR) infusion, 30 mL/hr, intravenous, Continuous ??? lidocaine (XYLOCAINE) 10 mg/mL (1 %) injection 2-10 mg, 0.2-1 mL, other, Once PRN Social History Tobacco Use Smoking Status Former ??? Current packs/day: 1.50 ??? Average packs/day: 1.5 packs/day for 17.8 years (26.7 ttl pk-yrs) ??? Types: Cigarettes ??? Start date: 1986 ??? Passive exposure: Past Smokeless Tobacco Never Alcohol Use: Not At Risk (03/13/2024) AUDIT-C ??? Frequency of Alcohol Consumption: 2-4 times a month ??? Average Number of Drinks: 1 or 2 ??? Frequency of Binge Drinking: Never Substance and Sexual Activity Drug Use Yes ??? Frequency: 3.0 times per week Comment: 1/2 CBD gummy at night to sleep Family History Problem Relation Age of Onset ??? Rheum arthritis Mother Rheumatoid arthritis; ??? Heart disease Mother Cardiovascular disease; ??? Alzheimer's disease Mother Alzheimer's disease; ??? Asthma Father Asthma; ??? Parkinsonism Other Family history of Parkinson's disease; ??? Prostate cancer Brother Family history of malignant neoplasm of prostate - (Added by TW Conv) ??? Breast cancer Mother's Sister ??? Breast cancer Mother's Sister ??? Ovarian cancer Neg Hx ??? Thyroid cancer Neg Hx ??? Endometrial cancer Neg Hx PAT Physical Exam Airway Exam: Mallampati: I Cervical ROM: FROM TM distance: 3.5 Cardiovascular Exam: Rate: regular Rhythm: regular Negative for Murmur Pulmonary Exam: LCTA, bilat EENT Exam: trachea midline Dental Exam: Appears intact Current state: Patient's current state is cooperative. Additional comments: Labs evaluated with no acute findings or concerns noted. Patient educated regarding the anesthesia process on the day of surgery. All questions were answered prior to patient being discharged from PAT clinic. Patient is cleared for surgery Vitals: 03/26/24 0547 BP: (!) 151/102 Pulse: 79 Resp: 18 Temp: 36.4 ??C (97.5 ??F) SpO2: 98% PT: 03/13/2024: 12.7 sec INR: 03/13/2024: 0.9 APTT: No results found for requested labs within last 30 days. Hgb A1C: No results found for requested labs within last 30 days. CBC RBC: 03/13/2024: 3.94 M/cumm RDW: No results found for requested labs within last 30 days. MCHC: 03/13/2024: 32.6 g/dL MCH: 03/13/2024: 33.8 pg (H) MCV: 03/13/2024: 103.6 fL (H) Hct: 03/13/2024: 40.8 % Hgb: 03/13/2024: 13.3 g/dL WBC: 03/13/2024: 7.3 K/cumm MPV: 03/13/2024: 10.1 fL Platelets: 03/13/2024: 180 K/cumm RDW CV: 03/13/2024: 12.4 % RDW Sd: 03/13/2024: 47.6 fL BMP Glucose: 03/26/2024: 110 mg/dL Calcium: 03/13/2024: 10.3 mg/dL Sodium: 03/13/2024: 135 mmol/L Potassium: 03/13/2024: 3.7 mmol/L CO2: 03/13/2024: 23 mmol/L Chloride: 03/13/2024: 102 mmol/L BUN: 03/13/2024: 23 mg/dL Creatinine: 03/13/2024: 0.60 mg/dL DOS Physical Exam Medical history, medications, and allergies reviewed. Attestation: I endorse the findings of the anesthesia pre-evaluation assessment dated: 03/26/2024. Airway Exam: Mallampati: II Cardiovascular Exam: Rate: regular Pulmonary Exam: LCTA Anesthesia Plan ASA 3 My patient is approved for the Anesthesia Controlled Medication protocol when under care of a CENTRIFUGE SEPARATOR TENDER Planned anesthesia: General Induction: Induction: intravenous. Informed Consent: Anesthesia plan and risks discussed with patient. Consent and Attending signature: I and/or my designee have discussed the anesthesia plan, benefits, possible alternatives, parental presence at time of induction (if indicated), and clinically relevant risks that may include dental injury, unintentional awareness, and/or other complications. The patient and/or parent/legal guardian understand, and agree to proceed. All questions answered. * Anesthesia Preprocedure Evaluation - Mona Fishman NP - 03/13/2024 10:32 AM CDT Images from the original note were not included. Anesthesia Evaluation Isela Kendall is a 73 y.o. female ANTERIOR APPROACH, RIGHT TOTAL HIP ARTHROPLASTY (Right: Hip) Pre-Op Diagnosis Codes: * Primary osteoarthritis of right hip [M16.11] HISTORY HPI Medical history significant for hypertension, hyperlipidemia, GERD, arthritis, and type 2 diabetes.Patient presents today for surgical clearance for a right total hip per on March 26, 2024. Patient denies any history of motion sickness, postoperative nausea and vomiting, obstructive sleep apnea, or self/family history of malignant hyperthermia. Past Medical History Information obtained from: patient. Information obtained during: In Person Cardiovascular + Hypertension + Hyperlipidemia Gastrointestinal + GERD Musculoskeletal/Pain + Osteoarthritis Endocrine / Other + Diabetes mellitus - Diabetes type 2. Functional Capacity Functional capacity: >10 METs Review of Systems Pertinent negatives: productive cough; SOB; recent cold/flu; fever; chest pain; previous transfusion; dysphagia; dentures/partials and chipped/loose teeth Patient Active Problem List Diagnosis Date Noted Primary osteoarthritis of right hip 02/23/2024 Convulsions (HCC) Disorder of sacrococcygeal spine 03/19/2016 Piriformis syndrome 03/19/2016 Past Medical History: Diagnosis Date Allergic rhinitis [...] removed OOPHERECTOMY 1986 TONSILLECTOMY as a child OB History 2 Para 2 Term 2 AB Living SAB IAB Ectopic Multiple Live Births Allergies Allergen Reactions Keflex [Cephalexin] Hives Happened in 1974. Does not know if she has ever had Ancef. Sulfa (Sulfonamide Antibiotics) Rash Penicillins Other (See comments) Massive hives, choked up, spent 36 hours in the ED , facial swelling, throat swelling, skin turnedred. 1974 Med List Status: Nurse Complete Set By: Guerline Styles RN at 03/13/2024 10:51 AM Status Comment 03/13/2024 10:51 AM Bottles Taking? Last Dose Start Date End Date Provider acetaminophen ER (TYLENOL) 650 mg 8 hr tablet -- -- -- Lynne Giraldo MD atenoloL (TENORMIN) 25 mg tablet -- 03/17/23 -- Lynne Giraldo MD cholecalciferol (VITAMIN D-3) 2000 unit tablet -- -- -- Lynne Giraldo MD doxycycline (PERIOSTAT) 20 mg tablet -- -- -- Lynne Giraldo MD ferrous sulfate 325 mg (65 mg of elemental iron) tablet -- -- -- Lynne Giraldo MD fluticasone propionate (FLONASE ALLERGY RELIEF NASL) -- -- -- Lynne Giraldo MD glucosamine-chondroitin 250-200 mg tablet -- -- -- Lynne Giraldo MD lisinopriL (PRINIVIL,ZESTRIL) 10 mg tablet -- 03/30/23 -- Lynne Giraldo MD loratadine 10 mg capsule -- -- -- Lynne Giraldo MD LORazepam (ATIVAN) 0.5 mg tablet -- -- -- Lynne Giraldo MD meloxicam (MOBIC) 7.5 mg tablet -- -- -- Provider, Historical, MD metFORMIN (GLUCOPHAGE) 500 mg tablet -- 09/20/17 -- Lynne Giraldo MD pantoprazole DR (PROTONIX) 40 mg EC tablet -- -- -- Lynne Giraldo MD rosuvastatin (CRESTOR) 20 mg tablet -- -- -- Lynne Giraldo MD UNABLE TO FIND -- -- -- Lynne Giraldo MD UNABLE TO FIND -- -- -- Lynne Giraldo MD valACYclovir (VALTREX) 500 mg tablet -- -- -- Lynne Giraldo MD vitamins A,C,H-pspu-cubxhy (ICAPS) 4,296 mcg-226 mg-90 mg capsule -- -- -- Lynne Giraldo MD Flag for Review Taking? Last Dose Start Date End Date Provider atenolol (TENORMIN) 50 mg tablet Unknown -- -- Lynne Giraldo MD atorvastatin (LIPITOR) 40 mg tablet Unknown 11/17/17 -- Lynne Giraldo MD estradiol (ESTRACE) 1 mg tablet Unknown 05/13/15 -- Nate Tse MD take 1 tablet by oral route every day Patient not taking: Reported on 03/13/2024 lisinopril (PRINIVIL,ZESTRIL) 20 mg tablet Unknown 05/13/15 -- Nate Tse MD take 1 tablet by oral route every day Patient not taking: Reported on 11/29/2017 lisinopril-hydroCHLOROthiazide (PRINZIDE,ZESTORETIC) 20-25 mg per tablet Unknown -- -- Lynne Giraldo MD naproxen (NAPROSYN) 500 mg tablet Unknown 02/13/18 -- Dmitri Crespo MD TAKE 1 TABLET(500 MG) BY MOUTH TWICE DAILY WITH MEALS Patient not taking: Reported on 03/13/2024 omeprazole (PriLOSEC) 40 mg capsule Unknown 09/20/17 -- Lynne Giraldo MD simvastatin (ZOCOR) 40 mg tablet Unknown -- -- Lynne Giraldo MD Current Outpatient Medications: acetaminophen ER (TYLENOL) 650 mg 8 hr tablet atenoloL (TENORMIN) 25 mg tablet cholecalciferol (VITAMIN D-3) 2000 unit tablet doxycycline (PERIOSTAT) 20 mg tablet ferrous sulfate 325 mg (65 mg of elemental iron) tablet fluticasone propionate (FLONASE ALLERGY RELIEF NASL) glucosamine-chondroitin 250-200 mg tablet lisinopriL (PRINIVIL,ZESTRIL) 10 mg tablet loratadine 10 mg capsule LORazepam (ATIVAN) 0.5 mg tablet meloxicam (MOBIC) 7.5 mg tablet metFORMIN (GLUCOPHAGE) [address] (PROTONIX) 40 mg EC tablet rosuvastatin (CRESTOR) 20 mg tablet UNABLE TO FIND UNABLE TO FIND valACYclovir (VALTREX) 500 mg tablet vitamins A,C,X-xaig-jiwdyq (ICAPS) 4,296 mcg-226 mg-90 mg capsule atenolol (TENORMIN) 50 mg tablet atorvastatin (LIPITOR) 40 mg tablet estradiol (ESTRACE) 1 mg tablet lisinopril (PRINIVIL,ZESTRIL) 20 mg tablet lisinopril-hydroCHLOROthiazide (PRINZIDE,ZESTORETIC) 20-25 mg per tablet naproxen (NAPROSYN) 500 mg tablet omeprazole (PriLOSEC) 40 mg capsule simvastatin (ZOCOR) 40 mg tablet Social History Tobacco Use Smoking Status Former Current packs/day: 1.50 Average packs/day: 1.5 packs/day for 17.8 years (26.7 ttl pk-yrs) Types: Cigarettes Start date: 1986 Passive exposure: Past Smokeless Tobacco Never Alcohol Use: Not At Risk (03/13/2024) AUDIT-C Frequency of Alcohol Consumption: 2-4 times a month Average Number of Drinks: 1 or 2 Frequency of Binge Drinking: Never Substance and Sexual Activity Drug Use Yes Frequency: 3.0 times per week Comment: 1/2 CBD gummy at night to sleep Family History Problem Relation Age of Onset [...] cancer Neg Hx Endometrial cancer Neg Hx PAT Physical Exam Airway Exam: Mallampati: I Cervical ROM: FROM TM distance: 3.5 Cardiovascular Exam: Rate: regular Rhythm: regular Negative for Murmur Pulmonary Exam: LCTA, bilat EENT Exam: trachea midline Dental Exam: Appears intact Current state: Patient's current state is cooperative. Additional comments: Labs evaluated with no acute findings or concerns noted. Patient educated regarding the anesthesia process on the day of surgery. All questions were answered prior to patient being discharged from PAT clinic. Patient is cleared for surgery Vitals: 03/13/24 1039 03/13/24 1041 BP: 166/92 Comment: lt upper arm 156/83 Comment: rt upper arm Pulse: 79 Resp: 14 Temp: 36.4 ??C (97.5 ??F) SpO2: 100% PT: 03/13/2024: 12.7 sec INR: 03/13/2024: 0.9 APTT: No results found for requested labs within last 30 days. Hgb A1C: No results found for requested labs within last 30 days. CBC RBC: 03/13/2024: 3.94 M/cumm RDW: No results found for requested labs within last 30 days. MCHC: 03/13/2024: 32.6 g/dL MCH: 03/13/2024: 33.8 pg (H) MCV: 03/13/2024: 103.6 fL (H) Hct: 03/13/2024: 40.8 % Hgb: 03/13/2024: 13.3 g/dL WBC: 03/13/2024: 7.3 K/cumm MPV: 03/13/2024: 10.1 fL Platelets: 03/13/2024: 180 K/cumm RDW CV: 03/13/2024: 12.4 % RDW Sd: 03/13/2024: 47.6 fL BMP Glucose: 03/13/2024: 108 mg/dL Calcium: 03/13/2024: 10.3 mg/dL Sodium: 03/13/2024: 135 mmol/L Potassium: 03/13/2024: 3.7 mmol/L CO2: 03/13/2024: 23 mmol/L Chloride: 03/13/2024: 102 mmol/L BUN: 03/13/2024: 23 mg/dL Creatinine: 03/13/2024: 0.60 mg/dL STOP-Bang Total Score: 2 Cosigned by Yon Bond MD at 03/14/2024 6:59 AM CDT documented in this encounter Miscellaneous Notes * Addendum Note - Sherrell Juarez MD - 03/27/2024 3:42 PM CDT Addendum created 03/27/241541 by Sherrell Juarez MD Delete clinical note documented in this encounter Plan of Treatment Not on file documented as of this encounter Procedures Procedure Name Priority Date/Time Associated Diagnosis Comments MT AN PROCEDURE PLACEHOLDER Routine 03/26/2024 8:01 AM CDT MT AN ELECTIVE ENDOTRACHEAL AIRWAY Routine 03/26/2024 8:01 AM CDT documented in this encounter Results * MT AN ELECTIVE ENDOTRACHEAL AIRWAY, MT AN PROCEDURE PLACEHOLDER (03/26/2024 8:01 AM CDT) Narrative Mehdi Coyne CRNA - 03/26/2024 8:01 AM CDT Mehdi Coyne CRNA ? 03/26/2024 ??8:02 AM Airway Patient location: OR Urgency: elective Indications for airway management: anesthesia Difficult airway: no Staff: Placed by: CENTRIFUGE SEPARATOR TENDER: Mehdi Coyne CRNA Emergent airway documentation: Risks [...] secured with: other Number of attempts: 1no us Jordan Robb MD ANESTHESIA ORDERABLES Fi nal Result documented in this encounter Visit Diagnoses Not on filedocumented in this encounter Administered Medications Inactive Administered Medications - up to 3 most recent administrations Medication Order MAR Action Action Date Dose Rate Site ceFAZolin (ANCEF) 2,000 mg/20 mL in sterile water (premix) 2,000 mg 2,000 mg, intravenous, at 400 mL/hr, Administer over 3 Minutes, Once, On Tue03/26/24 at 0615, For 1 dose, Pre-Op, Administer within 60 minutes of incision., Indications: Prophylaxis, SurgicalIndications:Prophylaxis, Surgical Given 03/26/2024 7:43 AM CDT 2,000 mg dexAMETHasone (DECADRON) 4 mg/mL injection intravenous, Administer over 2 Minutes, As needed, Starting on Tue03/26/24 at 0745, Anesthesia Intra-op Given 03/26/2024 7:45 AM CDT 4 mg fentaNYL (SUBLIMAZE) preservative free injection intravenous, As needed, Starting on Tue03/26/24 at 0728, Anesthesia Intra-op Given 03/26/2024 7:28 AM CDT 100 mcg HYDROmorphone (DILAUDID) injection intravenous, Administer over 2 Minutes, As needed, Starting on Tue03/26/24 at 0807, Anesthesia Intra-op Given 03/26/2024 9:38 AM CDT 0.4 mg Given 03/26/2024 8:16 AM CDT 0.4 mg Given 03/26/2024 8:07 AM CDT 0.6 mg Lactated Ringer's (LR) infusion 30 mL/hr, intravenous, Continuous, Starting on Tue03/26/24 at 0615, Pre-Op Rate/Dose Verify 03/27/2024 5:39 AM CDT 30 mL/hr 30 mL/hr New Bag 03/26/2024 9:40 PM CDT 30 mL/hr 30 mL/hr New Bag 03/26/2024 8:49 AM CDT 150 mL/hr lidocaine (cardiac) (XYLOCAINE) preservative free injection intravenous, As needed, Starting on Tue03/26/24 at 0728, Anesthesia Intra-op, Indications: Ventricular ArrhythmiasIndications:Ventricular Arrhythmias Given 03/26/2024 7:28 AM CDT 60 mg ondansetron (ZOFRAN) injection intravenous, Administer over 2 Minutes, As needed, Starting on Tue03/26/24 at 0745, Anesthesia Intra-op Given 03/26/2024 7:45 AM CDT 4 mg phenylephrine (BAKARI-SYNEPHRINE) 1 mg/10 mL (100 mcg/mL) in sodium chloride 0.9% (premix) intravenous, As needed, Starting on Tue03/26/24 at 0837, Anesthesia Intra-op Given 03/26/2024 9:13 AM CDT 200 mc g Given 03/26/2024 8:49 AM CDT 200 mcg Given 03/26/2024 8:46 AM CDT 100 mcg propofoL (DIPRIVAN) 10 mg/mL IV intravenous, As needed, Starting on Tue03/26/24 at 0728, Anesthesia Intra-op Given 03/26/2024 8:07 AM CDT 30 mg Given 03/26/2024 7:28 AM CDT 130 mg rocuronium (ZEMURON) injection intravenous, As needed, Starting on Tue03/26/24 at 0728, Anesthesia Intra-op Given 03/26/2024 8:50 AM CDT 10 mg Given 03/26/2024 7:28 AM CDT 50 mg sugammadex (BRIDION) 100 mg/mL intravenous solution intravenous, As needed, Starting on Tue03/26/24 at 0923, Anesthesia Intra-op Given 03/26/2024 9:23 AM CDT 200 mg tranexamic acid (CYKLOKAPRON) 1,000 mg/100 mL (10 mg/mL) in sodium chloride (premix) 1,000 mg 1,000 mg, intravenous, at 400 mL/hr, Administer over 15 Minutes, Once, On Tue03/26/24 at 0745, For 1 dose, Intra-Op, INTRA-OP Infuse over 10 minutes prior to skin incision, Indications: Reduction of Perioperative Blood LossIndications:Reduction of Perioperative Blood Loss Given 03/26/2024 7:56 AM CDT 1,000 mg tranexamic acid (CYKLOKAPRON) 1,000 mg/100 mL (10 mg/mL) in sodium chloride (premix) 1,000 mg 1,000 mg, intravenous, at 400 mL/hr, Administer over 15 Minutes, Once, On 03/26/24 at 0745, For 1 dose, Intra-Op, INTRA-OP Infuse over 10 minutes at the start of wound closure., Indications: Reduction of Perioperative Blood LossIndications:Reduction of Perioperative Blood Loss Given 03/26/2024 9:14 AM CDT 1,000 mg documented in this encounter Care Teams Finisher [employer] Relationship Specialty Start Date End Date Baldo Bower MD PCP - General Family Practice 11/03/23 documented as of this encounter
--- OUTSIDE RECORDS SUMMARY | 2024-06-12 07:40 | XMS_ITS | Encounter Summary ---
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
--- OUTSIDE RECORDS SUMMARY | 2024-06-12 07:40 | XMS_ITS | Encounter Summary ---
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 Patient plans discharge to home. documented in this encounter Plan of Treatment Not on file documented as of this encounter Visit Diagnoses Not on filedocumented in this encounter Care Teams Shell Shop Supervisor Relationship Specialty Start Date End Date Baldo Bower MD PCP - General Family Practice 11/03/23 documented as of this encounter
--- OUTSIDE RECORDS SUMMARY | 2024-06-12 07:40 | XMS_ITS | Encounter Summary ---
Author Organization [facility] Healthcare Address [address] [place] [address] Care Team Providers Care Telesales Representative Name Role Phone Baldo Bower MD Primary Care Provider [phone] Reason for Visit * Auth/Cert (Routine) Specialty Diagnoses / Procedures Referred By Contac t Referred To Contact Diagnoses Primary osteoarthritis of right hip Primary osteoarthritis of right hip [M16.11] Procedures ME ARTHRP ACETBLR/PROX FEM PROSTC AGRFT/ALGRFT ANTERIOR APPROACH, RIGHT TOTAL HIP ARTHROPLASTY Referral ID Status Reason Start Date Expiration Date Visits Re quested Visits Authorized [id number] 1 1 Encounter Details Date Type Department Care Team (Late st Contact Info) Description 03/26/2024 7:30 AM CDT - 03/26/2024 10:30 AM CDT Surgery [facility] OR [address] [place] [address] Liliam Curiel DO [address] [place] [id number] ANTERIOR APPROACH, RIGHT TOTAL HIP ARTHROPLASTY Surgery Details Date/Time Status Location OR Service Patient Class Case Class Case Type Trauma Case? 03/26/2024 7:30 AM Posted [facility]PERATING RO[facility] OR Orthopaedics Outpatient in Bed Elective Panel 1 Procedure LRB Anes Op Region Wound Class Comments ANTERIOR APPROACH, RIGHT TOT AL HIP ARTHROPLASTY Right General Hip Class I - Clean Depuy Surgeon Surgeon Role Service Panel Liliam Curiel DO Primary Orthopaedics 1 Case Notes RTHA documented in this encounter Social History Tobacco Use Types Packs/Day Years Used Date Smoking Tobacco: Former Cigarettes 1.5 18 S tarted: 1986 Passive Smoke Exposure: Past Smokeless Tobacco: Never [facility] Utilities Answer Date Recorded In the [...] often do you attend chur ch or hinduism services? Never 03/26/2024 Do you belong to [...] any time in the past 12 m [facility], were you homeless or living in a retirement (including now)? No 03/26/2024 Personal Safety Answer Date Recorded Have you ever been in or are you currently in a harmful physical or emotional relationship or is someone making you feel afraid or unsafe? 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 female who presented to [facility] on 03/26/2024. 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, nose and mouth Commonly known as: VALTREX vitamins A,C,Y-lanm-gbvpgx 4,296 mcg-226 mg-90 mg capsule Take 1 [...] no toilet facilitIes are available?: Yes The nwir-[id number] evaluation was performed on: 03/27/2024 DME services provided by: [facility] Post-Discharge Dressing Care - DO NOT submerge [...] of walker?: Yes DME services provided by: [facility] Primary Care Physician at Discharge: Baldo Bower MD [phone] Follow up: [facility] Home Care Services [address] [facility] [address] Liliam Curiel DO [address] [facility] [address] [address] Future Appointments Date Time Provider Department Center 04/10/2024 10:00 AM Pawan Patrick MD PhD [facility] CAM 6C NL 04/10/2024 1:00 PM Davie Hawkins PA [facility] OS 110 MH Specialty 05/08/2024 8:45 AM Liliam Curiel DO [facility] OS 110 Specialty Contact Information for Follow-ups [facility] Home Care Services Specialty: Home Health and Hospice [address] [facility] [address] Next Steps: Follow up Questions: Service Line: [...] DO Specialty: Orthopedic Surgery Relationship: Consulting Physician [facility] [place] [id number] Next Steps: Follow up Comments: Follow-up with Dr. Curiel in clinic 2 weeks after surgery Questions: To provider: LILIAM CURIEL PA Orthopedic Surgery 03/27/24 2:42 PM Cosigned by Liliam Curiel DO at 03/27/2024 3:18 PM CDT documented in this encounter Discharge Instructions * Attachments The following attachments cannot be sent through Care Everywhere. * Anterior Hip Replacement (Discharge Care) (Czech) documented in this encounter Medications at Time [...] 8 blood-glucose meter (Accu-Chek Guide Glucose Meter) [facility] ACCU-CHEK GUIDE W/DEVICE KIT 8 calcium carbonate-vitamin [...] doses 21 tablet 4 lancets 30 gauge [facility] PHARMACIST CHOICE LANCETS 8 lancing device [facility] SIMPLE DIAGNOSTICS LANCING DEV 8 lisinopriL (PRINIVIL,ZESTRIL) [...] (two) times a day Med Name: MegaRed [place]-3 Krill oil UNABLE TO FIND Take 1 each by mouth daily Med Name: Qunol ultra CoQ10 100 mg valACYclovir (VALTREX) 500 mg tabletIndications:C hronic Suppression,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, nose and mouth Take 1 tablet (500 mg total) by mouth daily vitamins A,C,L-cupl-esnrxu (ICAPS) 4,296 mcg-226 mg-90 mg capsule Take [...] this encounter Progress Notes * Angélica Alvarez, PROPERTY SPECIALIST - 03/27/2024 11:02 AM CDT Physical Therapy [...] Gait Deviations 1 Base of support - decreased;Nnia - decreased;Heel strike - decreased;Hip/knee flexion during [...] Time 1145 Time Calculation (min) 43 min Executive Vice President Services Utilized: NO Educated the patient to [...] End Date End Date [place] [facility] Pt will perform home exercise program per protocal with written cues as needed. -met 03/26/24 04/02/24 -- Goal Start Date Expected End Date End Date PT [facility] [place] [facility] [place] Pt to ascend and descend 1 step with one handrail and proper technique with SBA -met 03/26/24 04/02/24 -- * Jane Bullock COTA - 03/27/2024 10:05 AM CDT Occupational [...] training;Strengthening;Therapeutic activity;Therapeutic exercise;Transfer training OT Equipment Recommended Child'S Nurse;Sock aid;Long handled shoe horn;Dressing stick;Long handled sponge;Grab bars;Toilet raiser;Shower chair Progress during current admission Progressing toward goals Time Calculation Start Time 1005 Stop Time 1058 Time Calculation (min) 53 min Executive Vice President Services Utilized: NO Patient is identified by [...] [phone] Resp: 17 17 17 Temp: 36.9 ??C (98.4 ??F) [...] and compressible (-) Guerrero's sign Assessment: 1. ME ARTHRP ACETBLR/PROX FEM PROSTC AGRFT/ALGRFT [71975] (ANTERIOR APPROACH, RIGHT TOTAL HIP ARTHROPLASTY) 1 [...] Surgery 03/27/24 7:48 AM * Angélica Alvarez, PROPERTY SPECIALIST - 03/26/2024 2:57 PM CDT Physical Therapy 03/26/24 1037 PT Last Visit Session Type Treatment Safe [...] Time 1516 Time Calculation (min) 19 min Executive Vice President Services Utilized: NO Educated the patient to [...] sit<>stand x2 and stand step transfer to<>from BSC with ww. MIN VC for walker mgmt, [...] Using Single point cane Home ADL Equipment-Available Child'S Nurse;Sock aid;Long-handled shoehorn;Long handled sponge Home ADL Equipment-Currently Using Child'S Nurse;Sock aid;Long-handled shoehorn;Long handled sponge Prior Function Level of Tal[place]fer[place] Independent with ADLs;Independent functional transfers;Independent with ambulation;Independent with homemaking with ambulation Lives With Spouse Receives Help From Spouse/Significant other;Family (Son also visiting to assist) Driving Yes Mode of Transportation Driven by self Fall within the last 6 months Yes Fall within the last 6 months comment 3 Prior Function Comments Indep all, including med [facility] Pain Assessment Pain Assessment 0-10 Pain Score [...] with all needs met and equipment intact. Executive Vice President Services Utilized: NO Cotx with Tiffany Olivier [...] Date Expected End Date End Date OT [facility] [place] [facility] [place] 03/26/24 04/09/24 -- Goal Details: 1) LE ADL SBA WITH AE PRN. Goal Start Date Expected End Date End Date OT [facility] - Mis 7 03/26/24 04/09/24 -- Goal [...] Date End Date OT STG - Misc 10 03/26/24 04/09/24 -- Goal Details: 5) [...] Single point cane Prior Function Level of Tal[place] Independent with ADLs;Independent functional transfers;Independent with ambulation [...] in this encounter H&P Notes * Liliam Curiel DO - 03/26/2024 7:14 AM CDT I have reviewed the H&P, examined the patient, and endorse the findings as written. Plan of Care : Based on the above findings, I consider Isela Kendall to be an acceptable risk for : Procedure(s): ANTERIOR APPROACH, RIGHT TOTAL HIP ARTHROPLASTY Source Note - Lliiam Curiel DO - 03/15/2024 1:30 PM CDT [...] medical history of Allergic rhinitis, Arthritis, Cancer ([facility]/HCC) (), Dental bridge present, Dental crowns present, Diabetes mellitus ([facility]), Gastric reflux, Herpes, History of COVID-19, History [...] FIND, UNABLE TO FIND, valacyclovir, and vitamins a,c,c-qccd-xayanb. ALLERGIES She is allergic to keflex [cephalexin], [...] hip performed today and independently interpreted by asimows evidence of moderate to severe right hip [...] for the Shift: safety, pain control, PT/OT Swine Nutritionist Patient Centered Goal for Treatment: discharge to home This shift: --Wound care: surgical dressing, clean/dry/intact --Tolerating Diet: Yes -- Adequate urine output: Yes --BM this shift: No --Activity: up standby assist --Pain control: controlled with PRN pain medications --Free From Falls: Yes --Shift Events: pt resting comfortably in bed, no complaints or distress noted, will continue to monitor Reviewed discharge instructions with Iseal Kendall, and provided with a copy of the after visit summary. Questions encouraged. Patient verbalized understanding of discharge instructions, and denies additional needs. Discharge to Home via wheelchair Transported by: PCT Problem: Skin/Tissue Integrity Goal: Skin integrity remains intact Outcome: Adequate for Discharge Flowsheets (Taken 03/27/2024899) Skin integrity remains intact: Assess and document [...] improve Outcome: Adequate for Discharge Flowsheets (Taken 03/27/2024 0900) Identification of resources available to assist in meeting health care needs will improve: Collaborate with all therapies * Plan of Care - Morena Marcos LCSW - 03/27/2024 9:26 AM CDT Acknowledge Consult EMERGENCY SERVICES DIRECTOR consulted for Post Op THR discharge planning . No social service needs identified at this time. manager auto following for discharge planning, progression of care, and can consult social studies teacher if needs arise. Morena Marcos LCSW 03/27/2024 9:27 AM * Plan of Care - Ericka Person RN - 03/26/2024 11:02 PM CDT Goals: Clinical Goals for the Shift: safty, pain control, comfort Residential Patient Centered Goal for Treatment: discharge to [...] with all therapies Cosigned by Natalya Garcia, FATMATA at 03/28/2024 12:53 AM CDT * Plan of Care - Shaniqua Segovia RN - 03/26/2024 5:02 PM CDT Goals: Clinical Goals for the Shift: safety, pain control, PT/OT Swine Nutritionist Patient Centered Goal for Treatment: discharge to [...] Outcome: Progressing * Plan of Care - Cristi, Melinda Morrissey RN - 03/26/2024 2:21 PM CDT DISCHARGE [...] the care management team. LIZBETH: 03/27/24 TRANSPORTATION: [facility] ; Bedside RN to fax order and AVS to above fax number at d/c. Pt was provided list of [facility] for choice DURABLE MEDICAL EQUIPMENT: [facility] Address: [address] [place] [address] [place] [address] Will contact Alton at [employer] and request equipment delivery 03/26/24 6150 Discharge Summary Discharge Disposition Home health care Specify Facility [facility] Facility Contact Number Discharge Records Chart Copied Recommended Discharge Level of Retirement health care Actual Discharge Level of Retirement health care Post Acute Care Plan Home Care Services Yes Type of Home Care Services Home therapies;Nurse visit Home Care Services Name and Phone Number [facility] OP Services N/A DME Yes Durable Medical Equipment Walker (wheeled) DME Name and Contact Number [facility] [phone] Post Acute Care Facility N/A Post Discharge [...] this type exist for this encounter. * ECIN Note - Melinda Colin RN [...] risk RRC Intake/Output 03/26/24 0700 - 03/27/24 [phone] Total Intake (ml) 1500 -- -- 1500 [...] 0935 Dressing Status Clean/Dry/Intact Clean/Dry/Intact;New Clean/Dry/Intact;New Clean/Dry/Intact;New Clean/Dry/Intact;[place] Assessment ASHLEY ASHLEY ASHLEY ASHLEY ASHLEY Rhonda-wound [...] Vital Signs 03/25 0700 03/26 0659 03/26 0700 03/26 1326 Most Recent Temp (??C) 36.4 36.3 [...] 1005 Mechanical compression 03/26 0955 Mechanical compression 10/28 0945 Mechanical compression 03/26 935 Mechanical compression Mechanical Compression Site 03/26 1300 Bilateral 03/26 1120 Bilateral Mechanical Compression Type 03/26 1300 IPC/SCD 03/26 1120 IPC/SCD Mechanical Compression Status 03/26 1300 On 03/26 1120 On , Meds and Admin Active Only All Meds/Most Recent Administrations ceFAZolin (ANCEF) 2,000 mg/20 mL in sterile water (premix) 2,000 mg [[id number]] Ordering Provider: Liliam Curiel DO Status: Completed [...] Mehdi Coyne CRNA Lactated Ringer's (LR) infusion [[id number]] Ordering Provider: Mona Fishman NP Status: Verified Ordered On: 03/26/24530 Start: 03/26/24614 Ordered Dose (Remaining/Total): 30 mL/hr (--/--) Route: intravenous Frequency: Continuous Ordered Rate/Order Duration: 30 mL/hr / -- Timestamps Action Rate Route Other Information 03/26/24 0849 New Bag 150 mL/hr intravenous Performed by: Mehdi Coyne CRNA acetaminophen (TYLENOL) tablet 975 mg [[id number]] Ordering Provider: Mona Fishman NP Status: Completed (Past End Date/Time) Ordered On: 03/26/24530 Starts/Ends: 03/26/24614 - 03/26/24 06 Ordered Dose (Remaining/Total): 975 mg (0/1) Route: oral Frequency: Once Ordered Rate/Order Duration: -- / -- Timestamps Action Dose Route Other Information 03/26/24 06 Given 975 mg oral Performed by: Tiffany Mckeon RN Scanned Package: [id number], [id number], [id number] famotidine (PEPCID) tablet 20 mg [[id number]] Ordering Provider: Mona Fishman NP Status: Completed (Past End Date/Time) Ordered On: 03/26/24 0531 Starts/Ends: 03/26/24 0615 - 03/26/24 0600 Ordered Dose (Remaining/Total): 20 mg (0/1) Route: oral Frequency: Once Ordered Rate/Order Duration: -- / -- Timestamps Action Dose Route Other Information 03/26/24 06 Given 20 mg oral Performed by: Tiffany Mckeon RN Scanned Package: [id number] tranexamic acid (CYKLOKAPRON) 1,000 mg/100 mL (10 mg/mL) in sodium chloride (premix) 1,000 mg [[id number]] Ordering Provider: Liliam Curiel DO Status: Completed (Past End Date/Time) Ordered On: 03/26/24707 Starts/Ends: 03/26/24744 - 03/26/24 0756 Ordered Dose (Remaining/Total): 1,000 mg (0/1) Route: intravenous Frequency: Once Ordered Rate/Order Duration: 400 mL/hr / 15 Minutes Admin Instructions: INTRA-OP Infuse over 10 minutes prior to skin incision Timestamps Action Dose Route Other Information 03/26/24 075 Given 1,000 mg intravenous Performed by: Mehdi Coyne CRNA tranexamic acid (CYKLOKAPRON) 1,000 mg/100 mL (10 mg/mL) in sodium chloride (premix) 1,000 mg [[id number]] Ordering Provider: Liliam Curiel DO Status: Completed (Past End Date/Time) Ordered On: 03/26/24707 Starts/Ends: 03/26/24744 - 03/26/24 0929 Ordered Dose (Remaining/Total): 1,000 mg (0/1) Route: intravenous Frequency: Once Ordered Rate/Order Duration: 400 mL/hr / 15 Minutes Admin Instructions: INTRA-OP Infuse over 10 minutes at the start of wound closure. Timestamps Action Dose / Duration Route Other Information 03/26/24 0914 Given 1,000 mg 15 Minutes intravenous Performed by: Mehdi Coyne CRNA ketorolac (TORADOL) 30 mg/mL injection 15 mg [[id number]] Ordering Provider: Liliam Curiel DO Status: Completed (Past End Date/Time) Ordered On: 03/26/24 0708 Starts/Ends: 03/26/24 0745 - 03/26/24 101 Ordered Dose (Remaining/Total): 15 mg (0/1) Route: intravenous Frequency: Once Ordered Rate/Order Duration: -- / -- Admin Instructions: INTRA-OP Give at time of skin closure Line Med Link Info Comment Peripheral IV 03/26/24 20 G Left;Posterior Hand 03/26/24 1015 by Selina Napoles RN -- Timestamps Action Dose Route Other Information 03/26/24 101 Given 15 mg intravenous Performed by: Selina Napoles RN Scanned Package: [id number] (PROTONIX) extended release tablet 40 mg [[id number]] Ordering Provider: Liliam Curiel DO Status: Verified Ordered On: 03/26/241120 Start: 03/26/24 2100 Ordered Dose (Remaining/Total): 40 mg (--/--) Route: oral Frequency: 2 times daily Ordered Rate/Order Duration: -- / -- Admin Instructions: Do not crush, chew, cut, dissolve, open or otherwise manipulate tablet/capsule. (No admins scheduled or recorded for this medication) LORazepam (ATIVAN) tablet 0.5 mg [[id number]] Ordering Provider: Liliam Curiel DO Status: Verified Ordered On: 03/26/241120 Start: 03/26/241120 Ordered Dose (Remaining/Total): 0.5 mg (--/--) Route: oral Frequency: Every 8 hours PRN Ordered Rate/Order Duration: -- / -- (No admins scheduled or recorded for this medication) loratadine (CLARITIN) tablet 10 mg [[id number]] Ordering Provider: Liliam Curiel DO Status: Verified Ordered On: 03/26/24 112 Start: 03/27/24 0900 Ordered Dose (Remaining/Total): 10 mg (--/--) Route: oral Frequency: Daily Ordered Rate/Order Duration: -- / -- (No admins scheduled or recorded for this medication) lisinopriL (PRINIVIL,ZESTRIL) tablet 10 mg [[id number]] Ordering Provider: Liliam Curiel DO Status: Verified Ordered On: 03/26/241120 Start: 03/26/24 1500 Ordered Dose (Remaining/Total): 10 mg (--/--) Route: oral Frequency: Daily Ordered Rate/Order Duration: -- / -- (No admins scheduled or recorded for this medication) fluticasone propionate (FLONASE) 50 mcg/actuation nasal spray 1 spray [[id number]] Ordering Provider: Liliam Curiel DO Status: Verified Ordered On: 03/26/241120 Start: 03/27/24 09 Ordered Dose (Remaining/Total): 1 spray (--/--) Route: each nostril Frequency: Daily Ordered Rate/Order Duration: -- / -- (No admins scheduled or recorded for this medication) Request home supply: doxycycline 40 mg tablet [[id number]] Ordering Provider: Liliam Curiel DO Status: Verified Ordered On: 03/26/241120 Start: 03/27/24 0900 Ordered Dose (Remaining/Total): 40 mg (--/--) Route: oral Frequency: Daily Ordered Rate/Order Duration: -- / -- Admin Instructions: Give 2 hrs before or 2 hrs after MVI, antacids, or other products containing sucralfate, magnesium, aluminum, iron, or zinc. May be taken without regard to meals. (No admins scheduled or recorded for this medication) atenoloL (TENORMIN) tablet 25 mg [[id number]] Ordering Provider: Liliam Curiel DO Status: Verified Ordered On: 03/26/241120 Start: 03/26/24 2100 Ordered Dose (Remaining/Total): 25 mg (--/--) Route: oral Frequency: Nightly Ordered Rate/Order Duration: -- / -- (No admins scheduled or recorded for this medication) aspirin enteric coated tablet 81 mg [[id number]] Ordering Provider: Liliam Curiel DO Status: Verified Ordered On: 03/26/241120 Start: 03/27/24 0900 Ordered Dose (Remaining/Total): 81 mg (--/--) Route: oral Frequency: 2 times daily Ordered Rate/Order Duration: -- / -- Admin Instructions: Do not crush, chew, cut, dissolve, open or otherwise manipulate tablet/capsule. (No admins scheduled or recorded for this medication) sodium chloride 0.9% flush 0.5-20 mL [[id number]] Ordering Provider: Liliam Curiel DO Status: Verified Ordered On: 03/26/241120 Start: 03/26/24 1400 Ordered Dose (Remaining/Total): 0.5-20 mL (--/--) Route: intra-catheter Frequency: Every 8 hours scheduled Ordered Rate/Order Duration: -- / -- Admin Instructions: Flush volume based on line type and size. (No admins scheduled or recorded for this medication) sodium chloride 0.9% flush 0.5-20 mL [[id number]] Ordering Provider: Liliam Cruiel DO Status: Verified Ordered On: 03/26/241120 Start: 03/26/241120 Ordered Dose (Remaining/Total): 0.5-20 mL (--/--) Route: intra-catheter Frequency: As needed Ordered Rate/Order Duration: -- / -- Admin Instructions: Flush volume based on line type and size. Flush before and after each use. (No admins scheduled or recorded for this medication) Lactated Ringer's (LR) infusion [[id number]] Ordering Provider: Liliam Curiel DO Status: Verified [...] mL in sterile water (premix) 2,000 mg [[id number]] Ordering Provider: Liliam Curiel DO Status: Dispensed Ordered On: 03/26/241120 Starts/Ends: 03/26/24 1545 - 03/27/24 0744 Ordered Dose (Remaining/Total): 2,000 mg (2/2) Route: intravenous Frequency: Every 8 hours Ordered Rate/Order Duration: 400 mL/hr / 3 Minutes Admin Instructions: Beginning 8 hours after last rhonda-operative dose. (No admins scheduled or recorded for this medication) acetaminophen (TYLENOL) tablet 975 mg [[id number]] Ordering Provider: Liliam Curiel DO Status: Verified Ordered On: 03/26/241120 Start: 03/26/24 1500 Ordered Dose (Remaining/Total): 975 mg (--/--) Route: oral Frequency: Every 6 hours scheduled Ordered Rate/Order Duration: -- / -- (No admins scheduled or recorded for this medication) ketorolac (TORADOL) 30 mg/mL injection 15 mg [[id number]] Ordering Provider: Liliam Curiel DO Status: Verified Ordered On: 03/26/241120 Starts/Ends: 03/26/24 1600 - 03/27/24 0359 Ordered Dose (Remaining/Total): 15 mg (2/2) Route: intravenous Frequency: Every 6 hours Ordered Rate/Order Duration: -- / -- (No admins scheduled or recorded for this medication) oxyCODONE (ROXICODONE) tablet 5 mg [[id number]] Ordering Provider: Liliam Curiel DO Status: Dispensed [...] Performed by: Shaniqua Segovia RN Scanned Package: [id number] HYDROmorphone (DILAUDID) injection 0.2 mg [[id number]] Ordering Provider: Liliam Curiel DO Status: Verified [...] this medication) ondansetron (ZOFRAN) injection 4 mg [[id number]] Ordering Provider: Liliam Curiel DO Status: Verified Ordered On: 03/26/241120 Start: 03/26/241120 Ordered Dose (Remaining/Total): 4 mg (--/--) Route: intravenous Frequency: Every 6 hours PRN Ordered Rate/Order Duration: -- / 2 Minutes Admin Instructions: Proceed to prochlorperazine if no relief within 30 minutes. (No admins scheduled or recorded for this medication) polyethylene glycol (MIRALAX) packet 17 g [[id number]] Ordering Provider: Liliam Curiel DO Status: Verified Ordered On: 03/26/241120 Start: 03/26/241199 Ordered Dose (Remaining/Total): 17 g (--/--) Route: oral Frequency: Daily Ordered Rate/Order Duration: -- / -- Admin Instructions: Hold for diarrhea. (No admins scheduled or recorded for this medication) docusate sodium (COLACE) capsule 100 mg [[id number]] Ordering Provider: Liliam Curiel DO Status: Dispensed Ordered On: 03/26/241120 Start: 03/26/24 1200 Ordered Dose (Remaining/Total): 100 mg (--/--) Route: oral Frequency: 2 times daily Ordered Rate/Order Duration: -- / -- Admin Instructions: Hold for diarrhea Timestamps Action Dose Route Other Information 03/26/24 1318 Given 100 mg oral Performed by: Shaniqua Segovia RN Scanned Package: [id number] bisacodyL (DULCOLAX) suppository 10 mg [[id number]] Ordering Provider: Liliam Curiel DO Status: Verified Ordered On: 03/26/241120 Start: 03/26/241120 Ordered Dose (Remaining/Total): 10 mg (--/--) Route: rectal Frequency: Daily PRN Ordered Rate/Order Duration: -- / -- (No admins scheduled or recorded for this medication) calcium carbonate (TUMS) chewable tablet 1,000 mg [[id number]] Ordering Provider: Liliam Curiel DO Status: Dispensed Ordered On: 03/26/24 112 Start: 03/26/24 1200 Ordered Dose (Remaining/Total): 400 mg of elemental calcium (--/--) Route: oral Frequency: 2 times daily Ordered Rate/Order Duration: -- / -- Timestamps Action Dose Route Other Information 03/26/24 1318 Given 1,000 mg oral Performed by: Shaniqua Segovia RN Scanned Package: [id number], 70175-068-98 metFORMIN (GLUCOPHAGE) tablet 500 mg [[id number]] Ordering Provider: Liliam Curiel DO Status: Verified Ordered On: 03/26/241120 Start: 03/26/24 1800 Ordered Dose (Remaining/Total): 500 mg (--/--) Route: oral Frequency: 2 times daily with meals (bkfst, dinner) Ordered Rate/Order Duration: -- / -- Admin Instructions: Take with food (No admins scheduled or recorded for this medication) Lactated Ringer's (LR) infusion [[id number]] Ordering Provider: Jordan Robb MD Status: Dispensed Ordered On: 03/26/24 0950 Start: 03/26/24 1030 Ordered Dose (Remaining/Total): 125 mL/hr (--/--) Route: intravenous Frequency: Continuous Ordered Rate/Order Duration: 125 mL/hr / -- (No admins scheduled or recorded for this medication) diphenhydrAMINE (BENADRYL) 50 mg/mL injection 12.5 mg [[id number]] Ordering Provider: Jordan Robb MD Status: Completed [...] Timestamps Action Dose Route Other Information 03/26/24 1045 Given 12.5 mg intravenous Performed by: Selina Napoles RN Scanned Package: [id number] * Initial Assessments - Melinda Colin RN - 03/26/2024 1:12 PM CDT CM Initial Assessment Interview Note Information Obtained From: Patient (03/26/24 1310) Admission Source: Scheduled surgery from home Impression: R total hip with Dr. Curiel Plan Includes: manager auto met with patient at bedside to discuss discharge plans. Patient stated that she plans to return home at discharge with support from her . Patient stated that she needs a wheeled walker. manager auto explained home health services, provided list of in-network agencies, and asked if patient had a preference to which home health company was arranged. Patient stated that she does not have a preference. Referrals sent via ECIN. packet on chart. Care Management to remain available to assist as needed. Primary Source of Transportation: Does the patient need discharge transport arranged?: No (03/26/24 1310) Health Insurance Coverage: Primary Coverage Payor Plan Insurance Group Employer/Plan Group [facility] [id number] Payor Plan Address Payor Plan Phone Number Payor Plan Fax Number Effective Dates [address] [address] 03/30/2023 - None Entered [facility] [address] Subscriber Name Subscriber Date Member ID ISELA KENDALL 1950 [id number] Pharmacy: [id number] - [place], [place] - [address] [phone] [facility] [address] Primary Care Provider: Baldo Bower MD Prior to Admission: Functional Status: Independent with ADLs Primary Caregiver: Self Support System: Spouse/Significant Other Home Care Services: No Outpatient Services: No Durable Medical Equipment: None Living Arrangements: Spouse/significant other Steps in home?: No steps inside or outside Medication management: Independent (03/26/241309) SDOH: Transportation: In the past 12 months, [...] were you homeless or living in a retirement (including now)?: No (03/26/241310) Utilities: No, (03/26/241309) Social Connections: In a typical week, how many times do you talk on the phone with family, friends, or neighbors?: Three times a week How often do you get together with friends or relatives?: Three times a week How often do you attend confucianism or hinduism services?: Never Do you belong to any clubs or organizations such as confucianism groups, unions, fraternal [...] (03/26/241310) Potential discharge needs include: Home Health: [facility], Physical therapy (03/26/241309) Behavioral Health Services: Behavioral [...] Collaboration with Patient, Provider, Direct Care Nurse, Mushroom Cutter, and other members of theHealth Care Team to assure needed interventions completed. 2. Return patient to optimal level of self-care post discharge. 3. Barrel Raiser will follow for Discharge Planning - interventions as needed 4. Anticipated level of care at discharge 5. Planned Discharge Disposition Melinda Colin RN * Op Note - Liliam Curiel DO - 03/26/2024 9:56 AM CDT NAME: Isela Kendall DATE OF : 1950 CSN: [id number] PRIMARY CARE PHYSICIAN: Baldo Bower MD PROCEDURE DATE: March 26, 2024 PREOPERATIVE DIAGNOSIS: Severe right hip arthritis POSTOPERATIVE DIAGNOSIS: Severe right hip arthritis PROCEDURE(S): Right anterior total hip arthroplasty ATTENDING: Liliam Curiel D.O. ASSISTANTS: Sports Manager: Pao Sandra RN Physician Balloon Artist: Davie Hawkins PA Sports Manager Relief: Kylah Locke RN Scrub: Letha Cox RN; Aroldo Serrano RN OR Sound Ranging Crewmember: Yane Rodríguez RT ANESTHESIA: General, Spinal COMPLICATIONS: None SPECIMENS: None EBL: 250mL Physician executive chef assistant Davie Hawkins was required throughout the case, including preoperatively and postoperatively for their specific skills set with patient positioning, skilled retraction, manipulation of the operative extremity, retraction of tissues and closure. Due to the complexity of the case, the skill set of an orthopedic physician executive chef assistant was needed throughout the case. No other qualified assistants were available for the case and their assistance was critical to completion of the case in a safe, timely and effective manner. IMPLANTS: Implant Name Type Inv. Item Serial No. Bracelet Form Coverer Lot No. LRB No. Used Action [employer] Shell Acetabular Emsys Shl 3Hole 48 [id number] - [id number] [employer] Shell Acetabular Emsys Shl 3Hole 48 [id number] [employer] [id number] Right 1 Implanted [employer] Liner Acetabular Emsys Lnr Aox N 48X36 [id number] - [id number] [employer] Liner Acetabular Emsys Lnr Aox N 48X36 [id number] [employer] [id number] Right 1 Implanted [employer] [place] 6.5mm 20mm Acetabular Cancellous Screw Bone Sterile 1217-20-500 - [id number] [employer] [place] 6.5mm 20mm Acetabular Cancellous Screw Bone Sterile 1217-20-500 [employer] [id number] Right 1 Implanted [employer] [place] 6.5mm 25mm Acetabular Cancellous Screw Bone Sterile 1217-25-500 - [id number] [employer] [place] 6.5mm 25mm Acetabular Cancellous Screw Bone Sterile 1217-25-500 [employer] [id number] Right 1 Implanted [employer] Stem Femoral Hip Porous Proximal Collared Actis 95mm Titanium Standard Offset Size 0 [id number] - [id number] [employer] Stem Femoral Hip Porous Proximal Collared Actis 95mm Titanium Standard Offset Size 0 [id number] [employer] [id number] Right 1 Implanted [employer] Articul/june 36mm Cementless Hip +5mm 12/14 [place] Femoral Latex Free [id number] - [id number] [employer] Articul/june 36mm Cementless Hip +5mm 12/14 [place] Femoral Latex Free [id number] [employer] [id number] Right 1 Implanted INDICATIONS: Isela Kendall is [...] the operating room and placed on the Jefferson table ensuring all bony prominences were padded and perineal post was well padded. The operative extremity was then prepped and draped in standard sterile fashion. A surgical time-out was performed confirming the patient's identity, operative site, procedure to be performed, and administration of pre-operative antibiotics per [facility] guidelines. Tranexamic acid was also utilized, 1 [...] was awoken from anesthesia and transported to [facility] in stable condition. Postoperative Plan Orthopedic admit [...] that time. Liliam Curiel DO Orthopedic Surgeon [facility] 03/26/2024 9:56 AM * Perioperative [...] comment 1 RN/MD Notified ASHOK Blood 03/27/2024 12:1 5 PM CDT 03/27/2024 12:15 PM CDT Newtonadair Moisés DO LAB POCT ORDERABLES - DEVICE F inal Result Performing Organization Address [facility] de Phone Number [address] [address] * POCT glucose (03/27/2024 7:59 AM CDT) Glucose, POC 105 70 - 199 mg/dL Glucose comment 1 RN/ Notified [facility] Blood 03/27/2024 7:59 AM CDT 03/27/2024 7:59 AM CDT Liliam Curiel DO LAB POCT ORDERABLES - DEVICE F inal Result Performing Organization Address [place] de Phone Number [address] [address] * eGFR (03/27/2024 5:32 AM CDT) eGFR [...] BARRY LAB BLOOD ORDERABLES Final Resul t [facility] [address] [facility] [place] [address] * (ABNORMAL) Differential, auto (03/27/2024 5:32 AM CDT) Neutrophil abs 8.6(H) 1.5 - 6.5 K/cumm Imm gran abs 0.0 0.0 - 0.1 K/cumm [facility] Lymphocyte abs 3.4(H) 0.8 - 3.3 K/cumm [facility] Monocyte abs 1.2(H) 0.2 - 0.8 K/cumm [facility] Eosinophil abs 0.1 0.0 - 0.5 K/cumm [facility] Basophil abs 0.0 0.0 - 0.1 K/cumm [facility] Neutrophil pct 64.6 % [facility] Comment: Interpretive Data Percent cell count reference ranges are not reported, since discordance with absolute values may lead to misinterpretation of CBC data. Current Interpretive Data was last revised on 2017. Imm gran pct 0.3 % [facility] Comment: Interpretive Data Percent cell count reference ranges are not reported, since discordance with absolute values may lead to misinterpretation of CBC data. Current Interpretive Data was last revised on 2017. Lymphocyte pct 25.4 % [facility] Comment: Interpretive Data Percent cell count reference ranges are not reported, since discordance with absolute values may lead to misinterpretation of CBC data. Current Interpretive Data was last revised on 2017. Monocyte pct 8.8 % [facility] Comment: Interpretive Data Percent cell count reference ranges are not reported, since discordance with absolute values may lead to misinterpretation of CBC data. Current Interpretive Data was last revised on 2017. Eosinophil pct 0.7 % [facility] Comment: Interpretive Data Percent cell count reference ranges are not reported, since discordance with absolute values may lead to misinterpretation of CBC data. Current Interpretive Data was last revised on 2017. Basophil pct 0.2 % [facility] Comment: Interpretive Data Percent cell count reference ranges are not reported, since discordance with absolute values may lead to misinterpretation of CBC data. Current Interpretive Data was last revised on 2017. Blood 03/27/2024 5:32 AM CDT 03/27/2024 6:16 AM CDT us Davie BARRY LAB BLOOD ORDERABLES Final Resul t [facility] [address] [facility] Department [place] [address] * (ABNORMAL) CBC with auto differential (03/27/2024 5:32 AM CDT) WBC 13.3(H) 3.8 - 9.9 K/cumm Hgb 9.7(L) 11.9 - 15.5 g/dL [facility] Hct 28.6(L) 35.6 - 45.5 % [facility] Plt 174 150 - 400 K/cumm [facility] MPV 10.3 9.1 - 12.3 fL [facility] RBC 2.83(L) 3.90 - 5.20 M/cumm [facility] MCV 101.1(H) 81.3 - 96.4 fL [facility] MCH 34.3(H) 27.1 - 33.3 pg [facility] MCHC 33.9 32.3 - 35.7 g/dL [facility] RDW CV 12.2 11.1 - 14.9 % [facility] RDW SD 45.2 35.7 - 48.1 fL [facility] NRBC abs 0.00 0.00 - 0.01 K/cumm [facility] Blood 03/27/2024 5:32 AM CDT 03/27/2024 6:16 AM CDT Davie BARRY LAB BLOOD ORDERABLES Final Resul t Performing Organization Address [facility] de Phone Number ASHOK [address] [address] * Basic metabolic panel (03/27/2024 5:32 AM CDT) [facility] Sodium 139 135 - 145 mmol/L Potassium, pl 3.6 3.3 - 4.9 mmol/L [facility] Chloride 103 97 - 110 mmol/L [facility] CO2 25 22 - 32 mmol/L [facility] Anion gap 11 2 - 15 mmol/L [facility] BUN 13 6 - 25 mg/dL [facility] Creatinine 0.67 0.60 - 1.10 mg/dL [facility] Glucose 98 70 - 199 mg/dL [facility] Comment: Interpretive Data Fasting glucose >/= [...] 2022. Calcium 9.5 8.5 - 10.3 mg/dL [facility] Blood 03/27/2024 5:32 AM CDT 03/27/2024 6:16 AM CDT Davie BARRY LAB BLOOD ORDERABLES Final Resul t Performing Organization Address [facility] Co de Phone Number [facility] [address] [address] * (ABNORMAL) POCT glucose (03/26/2024 7:49 PM CDT) Glucose, POC 243(H) 70 - 199 mg/dL Glucose comment 1 Use This Result [facility] Glucose comment 2 RN/MD Notified ASHOK Blood 03/26/2024 7:49 PM CDT 03/26/2024 7:49 PM CDT us Blakelyn Moisés DO LAB POCT ORDERABLES - DEVICE F inal Result Performing Organization Address [facility] Co de Phone Number ASHOK [address] [place] [address] * POCT glucose (03/26/2024 4:46 PM CDT) Glucose, POC 152 70 - 199 mg/dL Glucose comment 1 Use This Result [facility] Glucose comment 2 RN/MD Notified ASHOK Blood 03/26/2024 4:46 PM CDT 03/26/2024 4:46 PM CDT us Blakelyn Moisés DO LAB POCT ORDERABLES - DEVICE F inal Result Performing Organization Address [facility] Co de Phone Number TRUDI[address] [place] [address] * POCT glucose (03/26/2024 11:24 AM CDT) Glucose, POC 147 70 - 199 mg/dL Glucose comment 1 Use This Result [facility] Glucose comment 2 RN/MD Notified [facility] Blood 03/26/2024 11:2 4 AM CDT 03/26/2024 11:24 AM CDT us Blakelyn Moisés DO LAB POCT ORDERABLES - DEVICE F inal Result Performing Organization Address [facility] Co de Phone Number TRUDI[address] [place] [address] * XR Hip Right 2 or 3 [...] 10:40 AM - Electronically signed by ??Sam Almazan: ??03/26/2024 10:40 AM T: Report ID: [id number] Reading Location: ??[id number] Procedure Note Sam Hilton MD - 03/26/2024 [...] 10:40 AM - Electronically signed by Sam Almazan: 03/26/2024 10:40 AM T: Report ID: [id number] Reading Location: [id number] Davie BARRY IMG XR PROCEDURES Final Result * POCT glucose (03/26/2024 10:03 AM CDT) Pathologist [facility] Glucose, POC 136 70 - 199 mg/dL Blood 03/26/2024 10:0 3 AM CDT 03/26/2024 10:03 AM CDT Shanghai Moteng Website DO LAB POCT ORDERABLES - DEVICE F inal Result Performing Organization Address [facility] Co de Phone Number ASHOK [facility] [place] [address] * FL Fluoroscopy < 1 Hour (03/26/2024 9:10 AM CDT) Narrative RAD_CLARIO_MHB_MHE - 03/26/2024 9:13 AM CDT The images from this study are not interpreted by Radiology. ??Please refer to the physician's procedure / OR operative note. Newtonadair Moisés DO IMG FLUOROSCOPY PROCEDURES Fin al Result Performing Organization Address [facility] Co de Phone Number [email or web address] * ABO / Rh Confirmation Testing (03/26/2024 6:13 AM CDT) [facility] ABO/Rh Confirmation A Positive [facility] Blood 03/26/2024 6:13 AM CDT 03/26/2024 6:20 AM CDT Shanghai Moteng Website DO LAB BLOOD ORDERABLES Final Res ult Performing Organization Address [facility] Co de Phone Number ASHOK [facility] [employer] [place], [place] [id number] [facility]HB * POCT glucose (03/26/2024 6:11 AM CDT) Glucose, POC 110 70 - 199 mg/dL Blood 03/26/2024 6:11 AM CDT 03/26/2024 6:11 AM CDT Liliam Curiel DO LAB POCT ORDERABLES - DEVICE F inal Result ASHOK [address] [facility] [place] [address] documented in this encounter Visit Diagnoses Diagnosis Primary osteoarthritis of right hip- Primary Primary osteoarthritis of right hip [M16.11] Aftercare following right hip joint replacement surgery Primary osteoarthritis of right hip documented in this encounter Admitting Diagnoses Diagnosis [...] Given 03/26/2024 9:18 PM CDT 25 mg BUPivacaine-EPINEPHrine (MARCAINE with EPI) 0.5 %-1:200,000 preservative free injection As needed, Starting on Tue03/26/24 at 0915, Intra-Op Given 03/26/2024 9:15 AM CDT 30 mL Surgical Site calcium carbonate (TUMS) chewable tablet 1,000 mg 1,000 mg (400 mg of elemental calcium), oral, 2 times daily, First dose on Tue03/26/24 at 1200, Indications: Hypocalcemia PreventionIndications:Hypocalcem ia Prevention Given 03/26/2024 9:17 PM CDT 1,000 [...] at 0942, For 1 dose, Created by tyreseinet override fentaNYL (SUBLIMAZE) preservative free injection 25 [...] 0942, For 1 dose, Created by erin menjivaride HYDROmorphone (DILAUDID) injection 0.4 mg 0.4 mg, [...] Given 03/26/2024 5:28 PM CDT 500 mg morphine preservative free injection Administer over 4 Minutes, As needed, Starting on Tue03/26/24 at 0916, Intra-Op Given 03/26/2024 9:16 AM CDT 4 mg Bing gical Site oxyCODONE (ROXICODONE) tablet 5 mg 5 mg, [...] Tue03/26/24 at 1200, Hold for diarrhea., Indications: constipationIndications:constip ation Given 03/27/2024 8:20 AM CDT 17 g sodium chloride 0.9% irrigation As needed, Starting on Tue03/26/24 at 0913, Intra-Op Given 03/26/2024 9:13 AM CDT 1,200 mL Surgical Site documented in this encounter Discontinued Medications Medication [...] RN)2117 (Given - Provider: Ericka Person RN) 0334 (Not Given - Provider: Ericka Person, FATMATA - Reason: Patient/family refused)0820 (Given - Provider: [...] Prevention 1318 (Given - Provider: Shaniqua Segovia RN)2116 (Given - Provider: Ericka Person RN) 0821 [...] constipation 1318 (Given - Provider: Shaniqua Segovia RN)2117 (Given - Provider: Ericka Person RN) 0820 (Given - Provider: Shaniqua Segovia RN) famotidine (PEPCID) tablet 20 mg (COMPLETED) [...] Shaniqua Segovia RN)2118 (Given - Provider: Ericka Person RN) lisinopriL (PRINIVIL,ZESTRIL) tablet 10 mg 10 mg, [...] Person, FATMATA) 0820 (Given - Provider: Shaniqua Segovia RN) polyethylene glycol (MIRALAX) packet 17 g 17 [...] RN) 0539 (Rate/Dose Verify - Provider: Natalya Garcia, FATMATA)0818 (Stopped - Provider: Shaniqua Segovia RN) Lactated [...] Indications: Pain 1318 (Given - Provider: Shaniqua Segovia RN)1820 (Given - Provider: Shaniqua Segovia RN) 0021 (Given - Provider: Ericka Person RN)0526 (Given - Provider: Kaylah Scott RN) sodium chloride 0.9% flush 0.5-20 mL 0.5-20 [...] Date bisacodyL (DULCOLAX) suppository 10 mg 1 ceFAZolin (ANCEF) 2,000 mg/2 0 mL in [...] mg /mL injection 10 mg 1 03/26/2024 naloxone (NARCAN) 0.4 mg/mL injection 0.04-0.4 mg 1 03/26/2024 ondansetron (ZOFRAN) injection 4 mg 2 03/26 Request home supply: doxycyc line 40 mg tablet 1 03/26/2024 sodium chloride 0.9% flush 0.5-20 mL 2 02/28 tranexamic acid (CYKLOKAPRON ) 1,000 mg/100 mL [...] 03/27/2024 documented in this encounter Care Teams Telesales Representative Relationship Specialty Start Date End Date Baldo Bower MD PCP - General Family Practice 11/03/23 documented as of this encounter
--- OUTSIDE RECORDS SUMMARY | 2024-06-12 07:40 | XMS_ITS | Encounter Summary ---
Author Organization [facility] Address [address] [place] [address] Care Team Providers Care Singing Messenger Name Role Phone Baldo Bower MD Primary Care Provider + -[phone] Reason for Referral * Diagnostic Imaging (Routine) - Closed Specialty Diagnoses / Procedures Referred By Contac t Referred To Contact Diagnoses Pre-operative exam Procedures XR Hip Right W Pelvis Min 2 To 3 Views Lacy Curiel DO [facility] [address] [place] [address] Phone: tel: fax: [address] [phone] Referral ID Status Reason Start Date Expiration Date Visits Re quested Visits Authorized [id number] Closed 03/12/2024 04/11/2025 1 1 Reason for Visit * Diagnostic Imaging (Routine) - Closed Specialty Diagnoses / Procedures Referred By Contac den Referred To Contact Diagnoses Pre-operative exam Procedures XR Hip Right W Pelvis Min 2 To 3 Views Lacy Curiel DO [facility] [address] [place] [address] Phone: tel: fax: [address] [phone] Referral ID Status Reason Start Date Expiration Date Visits Re quested Visits Authorized [id number] Closed 03/12/2024 04/11/2025 1 1 Encounter Details Date Type Department Care Team (Latest Contact Info) Description 03/15/2024 1:30 PM CDT - 03/15/2024 11:59 PM CDT Hospital Encounter [facility] [address] [place] [address] Pre-operative exam Discharge Disposition: Discharge to home or self care Social History Tobacco Use Types Packs/Day Years Used Date Smoking Tobacco: Former Cigarettes 1.5 18 S tarted: 1987 Passive Smoke Exposure: Past Smokeless Tobacco: Never [...] on file 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 Gender Identity Not on file Sexual Orientation [...] 8 blood-glucose meter (Accu-Chek Guide Glucose Meter) [facility] ACCU-CHEK GUIDE W/DEVICE KIT 8 calcium carbonate-vitamin [...] doses 21 tablet 4 lancets 30 gauge [facility] PHARMACIST CHOICE LANCETS 8 lancing device [facility] SIMPLE DIAGNOSTICS LANCING DEV 8 lisinopriL (PRINIVIL,ZESTRIL) [...] (two) times a day Med Name: MegaRed [place]-3 Krill oil UNABLE TO FIND Take 1 each by mouth daily Med Name: Qunol ultra CoQ10 100 mg valACYclovir (VALTREX) 500 mg tabletIndications:C hronic Suppression,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, nose and mouth Take 1 tablet (500 mg total) by mouth daily vitamins A,C,Z-xlqw-ebfsgf (ICAPS) 4,296 mcg-226 mg-90 mg capsule Take 1 capsule by mouth 2 (two) times a day traZODone (DESYREL) 50 mg tablet TAKE 1 TABLET BY MOUTH EVERY DAY AT BEDTIME NEEDED FOR INSOMNIA 4 03/27/20 24 documented as of this encounter Discharge Disposition Disposition Code Departure Means Destination Discharge to home or self care documented in this encounter Plan of Treatment Not on file documented as of this encounter Procedures Procedure Name Priority Date/Time Associated Diagnosis Comments XR HIP RIGHT W PELVIS 2 OR 3 VIEWS Schedule Routine, Read Routine (OP Routine) 03/15/2024 1:35 PM CDT Pre-operative exam documented in this encounter Results * XR [...] AM T: ??03/18/2024 4:26 AM Report ID: [id number] Reading Location: ??[id number] Procedure Note Elias Lawson MD - 03/18/2024 [...] signed by Elias STACY: TAWANNA Report ID: [id number] Reading Location: [place] [address] Lacy Curiel DO IMG XR PROCEDURES Final Result documented in this encounter Visit Diagnoses Diagnosis Pre-operative exam Unspecified pre-operative examination documented in this encounter Care Teams Singing Messenger Relationship Specialty Start Date End Date Baldo Bower MD PCP - General Family Practice 11/03/23 documented as of this encounter
--- OUTSIDE RECORDS SUMMARY | 2024-06-12 07:40 | XMS_ITS | Encounter Summary ---
Author Organization [facility] Healthcare Address [address] [place] [address] Care Team Providers Care Oral Hygienist Name Role Phone Baldo Bower MD Primary Care Provider [phone] Reason for Referral * Diagnostic Imaging (Routine) - Closed Specialty Diagnoses / Procedures Referred By Shari crenshaw Referred To Contact Diagnoses Pre-operative exam Procedures XR Hip Right W Pelvis Min 2 To 3 Views Lacy Curiel DO [address] [place] [phone] Phone: tel: fax: [address] [phone] Referral ID Status Reason Start Date Expiration Date Visits Re quested Visits Authorized [id number] Closed 03/12/2024 04/11/2025 1 1 Reason for Visit * Reason Comments Pre-op Visit Encounter Details Date Type Department Care Team (Late st Contact Info) Description 03/15/2024 1:30 PM CDT Office Visit [facility] Orthopedics and Sports Medicine [address] [place] [phone] Lacy Curiel DO [address] [place] [phone] Pre-operative exam (Primary Dx); Primary osteoarthritis of right hip Social History Tobacco Use Types Packs/Day Years [...] on file 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 ALLERGIES She is allergic to keflex [cephalexin], [...] hip performed today and independently interpreted by abiola evidence of moderate to severe right hip [...] to home with home health physical therapy Lacy Curiel DO 03/15/2024 documented in this encounter Plan of Treatment [...] AM T: ??03/18/2024 4:26 AM Report ID: [id number] Reading Location: ??[id number] Procedure Note Elias Lawson MD - 03/18/2024 [...] signed by Elias STACY: TAWANNA Report ID: [id number] Reading Location: [id number] Lacy Curiel DO IMG XR PROCEDURES Final Result documented in this encounter Visit Diagnoses Diagnosis Pre-operative exam- Primary Unspecified pre-operative examination Primary osteoarthritis of right hip Pre-operative exam Unspecified pre-operative examination documented in this encounter Discontinued Medications Medication Sig Discontinue Reason Start Date End Da te lisinopril (PRINIVIL,ZESTRIL) 20 mg tablet take 1 tablet by oral route every day Patient Reported 05/13/2015 03/14/2024 estradiol (ESTRACE) 1 mg tablet take 1 tablet by oral route every day Patient Reported 05/13/2015 03/14/2024 lisinopril-hydroCHLOROth iazide (PRINZIDE,ZESTORETIC) 20-25 mg per tabletIndications:hypert ension Patient Reported 03/14/2024 omeprazole (PriLOSEC) 40 mg capsule Patient Reported 09/20/2017 03/14/2024 atenolol (TENORMIN) 50 mg tablet Patient Reported 03/14/2024 simvastatin (ZOCOR) 40 mg tablet Patient Reported 03/14/2024 naproxen (NAPROSYN) 500 mg tablet TAKE 1 TABLET(500 MG) BY MOUTH TWICE DAILY WITH MEALS Patient Reported 02/13/2018 03/14/2024 atorvastatin (LIPITOR) 40 mg tablet Patient Reported 11/17/2017 03/14/2024 documented as of this encounter Historical Medications * This list may reflect changes made after this encounter. Cholestyramine Light 4 gram powder 02/08/2024 traZODone (DESYREL) 50 mg tablet TAKE 1 TABLET BY MOUTH EVERY DAY AT BEDTIME NEEDED FOR INSOMNIA 02/07/2024 03/27/2024 added in this encounter Care Teams Oral Hygienist Relationship Specialty Start Date End Date Baldo Bower MD PCP - General Family Practice 11/03/23 documented as of this encounter
--- OUTSIDE RECORDS SUMMARY | 2024-06-12 07:40 | XMS_ITS | Encounter Summary ---
Author Organization [facility] Address [address] [place] [address] Care Team Providers Care Logistician Name Role Phone Baldo Bower MD Primary Care Provider [phone] Lacy Alvarado DO Unavailable [phone] Reason for Referral * Consultation (Routine) - Closed Specialty Diagnoses / Procedures Referred By Shari crenshaw Referred To Contact Physical Therapy Diagnoses Aftercare following right hip joint replacement surgery Davie Hawkins PA [address] [place] [address] DR [address] [place] [address] Phone: tel: fax: Lacy Alvarado DO [address] [place] [address] DR [address] [place] [address] Phone: tel: fax: Referral ID Status Reason Start Date Expiration Date V isits Requested Visits Authorized [id number] Closed Specialty Services Required 04/10/2024 05/10/2025 24 24 Question Answer PTRFR PT Evaluate and Treat Therapy options discussed with patient? 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 * Diagnostic Imaging (Routine) - Closed Specialty Diagnoses / Procedures Referred By Shari crenshaw Referred To Contact Diagnoses Primary osteoarthritis of right hip Procedures XR Hip Right 2 or 3 Views W Pelvis Davie Hawkins PA [address] [place] [address] Phone: tel: fax: [facility] Referral ID Status Reason Start Date Expiration Date Visits Re quested Visits Authorized [id number] Closed 04/09/2024 05/09/2025 1 1 DREN'S SERVICE WORKER Reason for Visit * Reason Comments Post-op Staple removal Encounter Details Date Type Department Care Team (Late st Contact Info) Description 04/10/2024 1:00 PM CHILDREN'S SERVICE WORKER Office Visit [facility] Orthopedics and Sports Medicine [address] [place] [phone] Davie Hawkins PA [address] [place] [address] Primary osteoarthritis of right hip (Primary Dx); Aftercare following right hip joint replacement surgery Social History Tobacco Use Types Packs/Day Years Used Date Smoking Tobacco: Former Cigarettes 1.5 18 S tarted: 1986 Passive Smoke Exposure: Past Smokeless Tobacco: Never [facility] [employer]licks[employer]ideities Answer Date Recorded In the past 12 months has [facility] electric, gas, oil, or water [employer] threatened to shut off services in your [...] often do you attend chur ch or sabianism services? Never 03/26/2024 Do you belong to any clubs o r organizations such as yazdanism groups, unions, fraternal or athletic groups, or [...] any time in the past 12 m [facility], were you homeless or living in a assisted (including now)? No 03/26/2024 Personal Safety Answer Date Recorded Have you ever been in or are you currently in a harmful physical or emotional relationship or is someone making you feel afraid or unsafe? Denies 03/26/2024 Comments Unknown Sex and Gender Information Value Date Recorded Sex Assigned at Not on file Legal Sex Female 1:32 PM CHILDREN'S SERVICE WORKER Gender Identity Not on file Sexual Orientation Not on file documented as of this encounter Progress Notes * Davie Hawkins PA - 04/10/2024 1:00 PM CST Images from the original note were not included. Postop Visit CHIEF COMPLAINT She had concerns including Post-op of the Right Hip (Staple removal). HISTORY OF PRESENT ILLNESS Isela Kendall is a 73 y.o. 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 Patient is doing well postoperatively and has discontinuedall narcotics. Patient reports that there is aching located on the lateral aspect of the right thigh as well as inferiorly about the right knee. She describes this as a muscle ache which is progressively improving. Patient is ambulating with the use of her walker and she is in the process of transitioning to a cane. She notes that there is some soreness after traveling long distances in the car. Overall the patient is eager to undergo formal physical therapy. MEDICATIONS She has a current medication list which includes the following prescription(s): acetaminophen er, aspirin, atenolol, cholecalciferol, cholestyramine light, docusate sodium, doxycycline, ferrous sulfate, fluticasone propionate, glucosamine-chondroitin, hydrocodone-acetaminophen, lisinopril, loratadine, lorazepam, meloxicam, metformin, ondansetron odt, pantoprazole dr, rosuvastatin, UNABLE TO FIND,UNABLE TO FIND, valacyclovir, and vitamins a,c,u-havf-cqbehq. ALLERGIES She is allergic to keflex [cephalexin], sulfa (sulfonamide antibiotics), and penicillins. REVIEW OF SYSTEMS Constitutional: Positive for activity change Musculoskeletal: Positive for arthralgias PHYSICAL EXAM There were no vitals taken for this visit. Right hip Inspection There is no drainage present. Left hip Inspection The patient has normal inspection of the left hip. Erythema: absent Edema: absent Swelling: absent Effusion: absent Skin temperature: normal Surgical scar/wound: present. The surgical scar/wound is well approximated, no evidence of infection and healing. There is no drainage present. Supportive device: none Palpation The patient has normal palpation of the left hip. Tenderness: absent. Radiating pain: no. Range of motion The patient has normal range of motion of the left hip. The patient does not have pain with range of motion of the left hip. Strength The patient has 5/5 strength throughout. Hip abduction: 5/5. Hip adduction: 5/5. Hip extension: 5/5. Hip flexion: 5/5. Neurovascular The patient has normal vascular on the left side of their body. Dorsalis pedis pulse: 2+ Posterior tibial pulse: 2+ The patient has normal sensation on the left side of their body. REVIEW OF X-RAYS/STUDIES/LABS Multiple x-rays of the right hip taken today and independently reviewed by me demonstrate anterior right total hip arthroplasty in appropriate alignment. No evidence of hardware loosening or periprosthetic fracture appreciated. No changes from previous x-rays. Skin camille noted anteriorly. Assessment/Plan: 1. Primary osteoarthritis of right hip (Primary) - XR Hip Right 2 or 3 Views W Pelvis; Future 2. Aftercare following right hip joint replacement surgery Patient is doing very well postoperatively as she has discontinued all narcotics and is ambulating longer distances with the use of her walker. She reports that there some continued muscle aching and additional right lower extremity swelling. I discussed with the patient that this will improve thefurther we get away from surgery. Patient has done well with home health physical therapy and I would like for her to now begin outpatient physical therapy. A referral was made at her preference in [facility]. Skin camille were removed in clinic and Steri-Strips were subsequently applied. Patient may now run water over her incision site but she is advised to avoid soaking or scrubbing at the incision. I would like for the patient to continue 81 mg aspirin b.i.d. for additional 2 weeks. I would like the patient to follow up in 4 weeks for repeat imaging and further evaluation.The patient is in agreement with the plan and provides no further questions at this time. JHONNY Mohr 04/10/2024 DREN'S SERVICE WORKER documented in this encounter Plan of Treatment Scheduled Referrals Name Type Priority Associated Diagnoses Orde r Schedule Ambulatory referral order to Physical Therapy - Outpatient Referral Routine Aftercare following right hip joint replacement surgery Expected: 04/24/2024 (Approximate), Expires: 04/10/2025 documented as of this encounter Results * XR Hip Right 2 or 3 Views W Pelvis (04/10/2024 1:25 PM CHILDREN'S SERVICE WORKER) Anatomical Region Laterality Modality Lower Extremities, Hip, Pelvis Right C omputed Radiography 04/13/2024 12:3 7 PM CHILDREN'S SERVICE WORKER Narrative 04/13/2024 12:38 PM CHILDREN'S SERVICE WORKER EXAM DESCRIPTION: XR HIP RIGHT 2 OR [...] PM T: ??04/13/2024 12:38 PM Report ID: [id number] Reading Location: ??[id number] Procedure Note Sam Rice MD - 04/13/2024 [...] Sam Rice M.D. MF: [id number] Report ID: [id number] Reading Location: [id number] Davie BARRY IMRoxanne XR PROCEDURES Final Result documented in this encounter Visit Diagnoses Diagnosis Primary osteoarthritis of right hip- Primary Aftercare following right hip joint replacement surgery Primary osteoarthritis of right hip documented in this encounter Care Teams Logistician Relationship Specialty Start Date End Date Baldo Bower MD PCP - General Family Practice 11/03/23 Lacy Alvarado DO [address] [place] [address] Consulting Physician Orthopedic Surgery 03/27/24 documented as of this encounter
--- OUTSIDE RECORDS SUMMARY | 2024-06-12 07:40 | XMS_ITS | Encounter Summary ---
Author Organization [facility] Healthcare Address [address] [place] [address] Care Team Providers Care Final Assembler Name Role Phone Baldo Bower MD Primary Care Provider [phone] Reason for Referral * Cardiology (Routine) - Authorized Specialty Diagnoses / Procedures Referred By Contac t Referred To Contact Diagnoses Preop examination Procedures ECG 12 [place] [address] [address] Phone: tel: fax: [address] [phone] Referral ID Status Reason Start Date Expiration Date V isits Requested Visits Authorized [id number] Authorized 03/06/2024 04/05/2025 1 1 Encounter Details Date Type Department Care Team (Latest Contact Info) Description 03/13/2024 10:00 AM CDT Pre-Admission Testing [facility] PreAdmission Testing [address] [place] [phone] Preop examination (Primary Dx); Primary osteoarthritis of right hip; Preop testing; Pain in other specified joint Anesthesia Record Procedure Summary Procedure Name Responsible [...] No value filed. 0939 An Stop Meds * Agents No agents on file. * Blood No blood administrations on file. Lines, Drains, and Airways Type Details Placement Removal Wound 03/26/24; 0756; N; Incision; Hip/trochanter; Anterior, Right 03/26/24 0756 by Pao Sandra RN Peripheral IV Placement Date: 02/28 01/20; Placement Time: 06; Catheter Size: 20 G; Orientation: Left, Posterior; Location: Hand; Site Prep: Chlorhexidine; Insertion Attempts: 1; Patient Tolerance: Tolerated well; Removal Date: 03/27/24; Removal Time: 08; Removal Reason: Drainage 03/26/24 0614 by Tiffany Mckeon RN 03/27/24 0830 by Shaniqua Segovia, FATMATA ETT Placement Date: 02/28 01/20; Placement Time: 08 (created via procedure documentation); Mask Ventilation: 1; Technique: Direct laryngoscopy; Type: ETT - single; Single Lumen Tube Size: 7 mm; Cuffed: Yes; Laryngoscope: Brianda; Blade Size: 3; Location: Oral; Grade View: Grade I; Insertion Attempts: 1; Placement Verification: Capnometry; Removal Date: 03/26/24; Removal Time: 93003/26/24 0802 by Mehdi Coyne CRNA 03/26/24 09 by Mehdi Coyne CRNA documented in this encounter Social History Tobacco Use Types Packs/Day Years Used Date Smoking Tobacco: Former Cigarettes 1.5 18 S tarted: 1986 Passive Smoke Exposure: Past Smokeless Tobacco: Never Tobacco Cessation:Counseling Given: Not Answered AUDIT-C Answer Date Recorded Q1: How often [...] on file 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 Gender Identity Not on file Sexual Orientation Not on file documented as of this encounter Last Filed Vital Signs Vital Sign Reading Time Taken Comments Blood Pressure 156/83 03/13/2024 10:41 AM CDT rt upper arm Pulse 79 03/13/2024 10:39 AM CDT Temperature 36.4 ??C (97.5 ??F) 03/13/2024 1 0:39 AM CDT Respiratory Rate 14 03/13/2024 10:3 9 AM CDT Oxygen Saturation 100% 03/13/2024 10: 39 AM CDT Inhaled Oxygen Concentration - - Weight 63.9 kg (140 lb 12.8 oz) 03/13/2024 10:39 AM CDT Height 157.5 cm (5' 2 ) 03/13/2024 10:3 9 AM CDT Body Mass Index 25.75 03/13/2024 10:39 AM CDT documented in this encounter Miscellaneous Notes * Perioperative Nursing Note - Guerline Styles RN - 03/13/2024 10:00 AM CDT TXA Screening Screen patient for contraindications and check all that apply: [] Allergy to tranexamic acid (absolute contraindication do not order IV or topical if patient reports allergy) [] Cardiac Stents within the past 12 months [] Renal Failure (SCR > 2.5 or CrCl < 25 ml/min) [] History of pulmonary embolism, ischemic stroke, or DVT [] Known heredity thrombophilia disorders (e.g. Antithrombin deficiency, Protein C or S deficiency,Factor V Leiden, prothrombin fragment mutation, or hyperhomocysteinemia) [] Acquired thrombophilia disorders (e.g. anti-cardiolipin antibodies, antiphospholipid syndrome, oral or parenteral anticoagulation that will not be held prior to surgery, , or hormone replacement therapy) [x] No Contraindications * Pre-Procedure Instructions - Guerline Styles RN - 03/13/2024 10:00 AM CDT Images from the original note were not included. [place] [address] Surgery Reminder Checklist: Please arrive to [facility]'s Outpatient Surgery Department for scheduled surgeryon 03/26/24 at 0530 am. If the surgeon's office tells you to arrive at a different time after we have given you instructions, please follow their instructions. Please use Entrance A also known as [facility], then follow the signs to the RIGHT for Outpatient Surgery. DO NOT eat after midnight (this includes gum, mints, hard candy, and chewable antacids). May have clear liquids up until 0330 AM. This includes, Water, Apple Juice, Gatorade, Black Coffee or Sprite. (NO Dairy, Milk Products, Creamer, Red Gatorade or Grundy Juice) Nothing by mouth the 4 hours prior to your procedure, NOT EVEN WATER ONLY TAKE THE FOLLOWING MEDICATIONS MORNING OF SURGERY: Pantoprazole (you may take your medications with enough water to safely swallow them) Please call us with any new prescriptions that were not discussed during the Pre-Testing Phone Assessment/Visit so that we can give you appropriate pre op instructions. DO NOT drink alcohol, smoke cigarettes/vapes/e-cigarettes during the 12 hours prior to your surgery. DO NOT use marijuana for 24 hours prior to surgery. DO NOT take illicit/illegal drugs of any kind for 7 days prior to surgery. PLEASE FOLLOW YOUR SURGEON'S GUIDELINES REGARDING IBUPROFEN, ALEVE, MULTIVITAMINS, HERBAL SUPPLEMENTS, FISH OIL AND VITAMIN E. YOU MAY BE REQUIRED TO HOLD THESE FOR 1-2 WEEKS BEFORE SURGERY. MEDICATION HOLD INSTRUCTIONS: HOLD MELOXICAM FOR 1 WEEK BEFORE SURGERY. LAST DOSE 03/18/24 HOLD MEGARED, QUNOL COQ10, AND PRESERVISION AREDS 2 VITAMINS FOR 10 DAYS BEFORE SURGERY. LAST DOSE 03/15/24 HOLD LISINOPRIL AND METFORMIN THE MORNING OF SURGERY ONLY. MAY CONTINUE TAKING VITAMIN D AND FERROUS SULFATE BEFORE SURGERY. May take TYLENOL (ACETAMINOPHEN) as needed for pain. [place] your teeth morning of procedure. Use mouth wash if available. Do not swallow any liquids whencleansing your mouth. Shower the evening before surgery WITH Antibacterial soap Antibacterial Soap Examples: Dial or Safeguard. After showering, do not apply any lotions, colognes, oils, deodorant, powder, or make-up. Follow Bathing instructions provided for chlorhexidine wipes evening before surgery. (Refer to Preparing the Skin handout in folder) Expect to remove wigs, dentures/partials, contact lenses, piercings, hearing aids, and prostheses before surgery. Do not wear jewelry to the hospital on the day of surgery. Bring glasses and hearing aids (with cases for both), inhalers, and CPAP/BiPAP machine day of surgery. If you will be admitted to the hospital after surgery, feel free to bring a toiletry bag. VISITOR POLICY: Patients in outpatient/surgical settings may have 2 dedicated visitors; children may be permitted as one of the 2 visitors, provided they are accompanied by a caregiver as the second visitor. Children can not be left unattended in the hospital setting. Call your surgeon if you develop a rash, fever, cold, or any other signs/symptoms of infection prior to surgery. You must call your surgeon if you have signs or symptoms of COVID or FLU. If someone in your home tests positive for COVID please call your surgeon. Your surgery may need to be postponed. IODINATED NASAL SWAB MORNING OF SURGERY: You will receive an Iodinated nasal swab one hour prior toyour surgery on the morning of surgery. This is to reduce the bacteria in the nose which reduces the risk of infection after surgery. Any questions/concerns, please call Admission and Testing Center at [phone]. Morning of surgery question/concerns, please call Outpatient Surgery at [phone]. documented in this encounter Plan of Treatment Not on file documented as of this encounter Procedures Procedure Name Priority Date/Time Associated Diagnosis Comments TYPE AND SCREEN 14 DAY Routine 03/13/2024 10:09 AM CDT Primary osteoarthritis of right hip Preop testing EGFR Routine 03/13/2024 10:09 AM CDT Primary osteoarthritis of right hip Preop testing DIFFERENTIAL AUTO Routine 03/13/2024 10: 09 AM CDT Primary osteoarthritis of right hip Preop testing INFECTION PREVENTION MRSA ONLY (STAPHYLOCOCCUS AUREUS) PCR [...] Preop testing Pain in other specified joint ANTIBODY SCREEN Routine 03/13/2024 10:09 AM CDT Primary osteoarthritis of right hip Preop testing COMPREHENSIVE METABOLIC PANEL Routine 03/13/2024 10:09 AM CDT Primary osteoarthritis of right hip Preop testing ECG 12-LEAD Routine 03/13/2024 9:52 AM CDT Preop examination documented in this encounter Results * eGFR (03/13/2024 10:09 AM CDT) eGFR [...] LAB BLOOD ORDERABLES Final Res ult [facility]OK [address] [facility] Department of Laboratories [place], [place] [id number] * Differential, auto (03/13/2024 10:09 AM CDT) Pathologist [facility] Neutrophil abs 4.5 1.5 - 6.5 K/cumm Imm gran abs 0.0 0.0 - 0.1 K/cumm [facility] Lymphocyte abs 1.9 0.8 - 3.3 K/cumm [facility] Monocyte abs 0.5 0.2 - 0.8 K/cumm [facility] Eosinophil abs 0.4 0.0 - 0.5 K/cumm [facility] Basophil abs 0.1 0.0 - 0.1 K/cumm [facility] Neutrophil pct 61.1 % [facility] Comment: Interpretive Data Percent cell count reference ranges are not reported, since discordance with absolute values may lead to misinterpretation of CBC data. Current Interpretive Data was last revised on 2017. Imm gran pct 0.1 % [facility] Comment: Interpretive Data Percent cell count reference ranges are not reported, since discordance with absolute values may lead to misinterpretation of CBC data. Current Interpretive Data was last revised on 2017. Lymphocyte pct 26.0 % [facility] Comment: Interpretive Data Percent cell count reference ranges are not reported, since discordance with absolute values may lead to misinterpretation of CBC data. Current Interpretive Data was last revised on 2017. Monocyte pct 6.8 % [facility] Comment: Interpretive Data Percent cell count reference ranges are not reported, since discordance with absolute values may lead to misinterpretation of CBC data. Current Interpretive Data was last revised on 2017. Eosinophil pct 5.3 % [facility] Comment: Interpretive Data Percent cell count reference ranges are not reported, since discordance with absolute values may lead to misinterpretation of CBC data. Current Interpretive Data was last revised on 2017. Basophil pct 0.7 % [facility] Comment: Interpretive Data Percent cell count reference ranges are not reported, since discordance with absolute values may lead to misinterpretation of CBC data. Current Interpretive Data was last revised on 2017. Blood 03/13/2024 10:0 9 AM CDT 03/13/2024 10:16 AM CDT us Lacy Curiel DO LAB BLOOD ORDERABLES Final Res ult [facility] [address] [facility] [place] [address] * Antibody screen (03/13/2024 10:09 AM CDT) Naman, indirect, Gel Interpretation Negative ABSC Blood 03/13/2024 10:0 9 AM CDT 03/13/2024 10:13 AM CDT Narrative ASHKO - 03/13/2024 10:52 AM CDT Is this test being ordered in advance for a procedure?->Yes Expected date of procedure:->03/26/24 Has the patient been transfused in the past 3 months?->No Has the patient been in the past 3 months?->No [facility] LAB BLOOD BANK TEST ORDERABLES Final Result Performing Organization Address [facility] de Phone Number ASHOK [address] [address] * ABO/Rh (03/13/2024 10:09 AM CDT) Pathologist [facility] ABO/Rh A Positive Blood 03/13/2024 10:0 9 AM CDT 03/13/2024 10:13 AM CDT [facility] - 03/13/2024 10:52 AM CDT Is this test being ordered in advance for a procedure?->Yes Expected date of procedure:->03/26/24 Has the patient been transfused in the past 3 months?->No Has the patient been in the past 3 months?->No [facility] LAB BLOOD BANK TEST ORDERABLES Final Result Performing Organization Address [facility] de Phone Number ASHOK [address] [address] * Nicotine metabolite screen, urine (03/13/2024 10:09 AM CDT) Pathologist [facility] Nicotine, ur <5.0 <5.0 ng/mL [facility] Cotinine, ur <5.0 <5.0 ng/mL [facility] Anabasine ur <2.0 <2.0 ng/mL [facility] Comment: ADDITIONAL INFORMATION This test was developed and its performance characteristics determined by [facility] in a manner consistent with CLIA requirements. This test has not been cleared or approved by the U.S. Food and Drug Administration. Test Performed by: [facility] - [address] [address] Editing Internship: John Mckee Ph.D.; CLIA# [id number] Nornicotine, ur <2.0 <2.0 ng/mL [facility] Urine 03/13/2024 10:0 9 AM CDT 03/13/2024 11:35 AM CDT [facility] URINE ORDERABLES Final Res ult Performing Organization Address [facility] Co de Phone Number [facility] [address] [place] [address] [facility] ref [facility] * Infection Prevention MRSA Only (Staphylococcus aureus) PCR Nasal (03/13/2024 10:09 AM CDT) [facility] PCR Scrn, Methicillin resistant Staphylococcus aureus (MRSA) Not Detected Not Detected Comment: Interpretive Data Testing performed using Nucleic Acid Amplification with the [employer] Xpert MRSA NxG Assay. This assay detects target DNA from mecA, mecC and the SCCmec insertion site of Staphylococcus aureus using Real-Time PCR and has been cleared by the FDA. Performance characteristics have been verified by the [facility]. Current Interpretive Data was last revised on 2023 Nasal 03/13/2024 10:0 9 AM CDT 03/13/2024 10:13 AM CDT [facility] MICROBIOLOGY - GENERAL ORD ERABLES Final Result Performing Organization Address [facility] Co de Phone Number [address] [place] [address] * Comprehensive metabolic panel (03/13/2024 10:09 AM CDT) [facility] Sodium 135 135 - 145 mmol/L Potassium, pl 3.7 3.3 - 4.9 mmol/L [facility] Comment:Hemolyzed; Potassium value may be falsely elevated by as much as 1.0 mmol/L. Suggest redraw and reanalysis. Chloride 102 97 - 110 mmol/L [facility] CO2 23 22 - 32 mmol/L [facility] Anion gap 10 2 - 15 mmol/L [facility] BUN 23 6 - 25 mg/dL [facility] Creatinine 0.60 0.60 - 1.10 mg/dL [facility] Glucose 108 70 - 199 mg/dL [facility] Comment: Interpretive Data Fasting glucose >/= 126 [...] 2022. Calcium 10.3 8.5 - 10.3 mg/dL [facility] Bilirubin, total 0.3 0.1 - 1.2 mg/dL [facility] Protein, pl 6.6 6.5 - 8.5 g/dL [facility] Albumin 4.4 3.5 - 5.0 g/dL [facility] Alk phos 54 40 - 130 Units/L [facility] ALT 17 7 - 45 Units/L [facility] AST 23 10 - 45 Units/L [facility] Comment:Hemolyzed; result ma y be falsely elevated Blood 03/13/2024 10:0 9 AM CDT 03/13/2024 10:16 AM CDT us Lacy Curiel DO LAB BLOOD ORDERABLES Final Res ult [facility] [address] [facility] [place] [address] * (ABNORMAL) CBC with auto differential (03/13/2024 10:09 AM CDT) Pathologist [facility] WBC 7.3 3.8 - 9.9 K/cumm Hgb 13.3 11.9 - 15.5 g/dL [facility] Hct 40.8 35.6 - 45.5 % [facility] Plt 180 150 - 400 K/cumm [facility] MPV 10.1 9.1 - 12.3 fL [facility] RBC 3.94 3.90 - 5.20 M/cumm [facility] MCV 103.6(H) 81.3 - 96.4 fL [facility] MCH 33.8(H) 27.1 - 33.3 pg [facility] MCHC 32.6 32.3 - 35.7 g/dL [facility] RDW CV 12.4 11.1 - 14.9 % [facility] RDW SD 47.6 35.7 - 48.1 fL [facility] NRBC abs 0.00 0.00 - 0.01 K/cumm [facility] Blood 03/13/2024 10:0 9 AM CDT 03/13/2024 10:16 AM CDT [facility] LAB BLOOD ORDERABLES Final Res ult Performing Organization Address [facility] de Phone Number [address] [place] [address] * Protime-INR (03/13/2024 10:09 AM CDT) PT 12.7 12.0 - 14.6 sec INR 0.9 0.9 - 1.2 [facility] Comment: Ref Range High Interpretive data Oral anticoagulant therapeutic ranges: Venous thromboembolism prophylaxis or treatment: 2.0-3.0 CARDIOLOGY Standard range: 2.0-3.0 High-intensity range: 2.5-3.5 Refer to indication-specific guidelines for appropriate target ranges for prosthetic heart valve replacement. Current interpretive data was last revised on 2019. Blood 03/13/2024 10:0 9 AM CDT 03/13/2024 10:16 AM CDT [facility] LAB BLOOD ORDERABLES Final Res ult Performing Organization Address [facility] Co de Phone Number [address] [place] [address] * ECG 12 lead (03/13/2024 9:52 AM CDT) Ventricular Rate EKG/Min 81 BPM [facility] Atrial Rate 81 BPM [facility] FL-Interval (MSEC) 144 ms [facility] QRS-Interval (MSEC) 80 ms [facility] QT-Interval (MSEC) 392 ms [facility] QTc 455 ms [facility] P Pine 70 degrees [facility] R Pine 32 degrees [facility] T Pine 39 degrees [facility] Diagnosis Normal sinus rhythm Normal ECG No previous ECGs available Confirmed by SULTAN MANRIQUE M.D. ([id number]) on 03/13/2024 8:10:20 PM [facility] 03/13/2024 9:52 AM CDT 03/13/2024 8:10 PM CDT us Mona Fishman NP ECG ORDERABLES Final Resu lt [facility] documented in this encounter Visit Diagnoses Diagnosis Preop examination- Primary Unspecified pre-operative examination Primary osteoarthritis of right hip Preop testing Unspecified pre-operative examination Pain in other specified joint documented in this encounter Historical Medications * This list may reflect changes made after this encounter. 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, nose and mouth Take 1 tablet (500 mg total) by mouth daily glucosamine-anmol droitin 250-200 mg tablet Take 1 tablet by mouth 2 (two) times a day UNABLE TO FIND Take 1 each by mouth daily Med Name: Qunol ultra CoQ10 100 mg acetaminophen ER (TYLENOL) 650 mg 8 hr tablet Take 2 tablets (1,300 mg total) by mouth 2 (two) times a day meloxicam (MOBIC) 7.5 mg tablet Take 1 tablet (7.5 mg total) by mouth 2 (two) times a day UNABLE TO FIND Take 1 each by mouth 2 (two) times a day Med Name: Tramaine [place]-3 Krill oil ferrous sulfate 325 mg (65 mg of elemental iron) tabletIndication s:Iron Deficiency Anemia Take 1 tablet (325 mg total) by mouth daily with breakfast rosuvastatin (CRESTOR) 20 mg tablet Take 1 tablet (20 mg total) by mouth nightly doxycycline (PERIOSTAT) 20 mg tabletIndication s:Other (complete free text reason below),Rosacea Take 2 tablets (40 mg total) by mouth daily For Rosacea fluticasone propionate (FLONASE ALLERGY RELIEF NASL) Administer 1 spray into affected nostril(s) daily pantoprazole DR (PROTONIX) 40 mg EC tablet Take 1 tablet (40 mg total) by mouth 2 (two) times a day added in this encounter Care Teams Final Assembler Relationship Specialty Start Date End Date Baldo Bower MD PCP - General Family Practice 11/03/23 documented as of this encounter
--- OUTSIDE RECORDS SUMMARY | 2024-06-12 07:40 | XMS_ITS | Encounter Summary ---
Author Organization [facility] Address [address] [place] [address] Care Team Providers Care Clinical Research Specialist Name Role Phone Baldo Bower MD Primary Care Provider + -[phone] Reason for Referral * MRI/CAT/PET Scan (Routine) - Closed Specialty Diagnoses / Procedures Referred By Shari crenshaw Referred To Contact Radiology Diagnoses Primary osteoarthritis of right hip Procedures MRI Hip Right WO Contrast Lacy Curiel DO [facility] [address] [place] [address] Phone: tel: fax: [address] [phone] Referral ID Status Reason Start Date Expiration Date Visits Re quested Visits Authorized [id number] Closed 01/10/2024 02/08/2025 1 1 Reason for Visit * MRI/CAT/PET Scan (Routine) - Closed Specialty Diagnoses / Procedures Referred By Shari crenshaw Referred To Contact Radiology Diagnoses Primary osteoarthritis of right hip Procedures MRI Hip Right WO Contrast Lacy Curiel DO [address] [place] [address] [address] [place] [address] Phone: tel: fax: [address] [phone] Referral ID Status Reason Start Date Expiration Date Visits Re quested Visits Authorized [id number] Closed 01/10/2024 02/08/2025 1 1 Encounter Details Date Type Department Care Team (Latest Contact Info) Description 01/25/2024 7:43 AM CDT - 01/25/2024 11:59 PM CDT Hospital Encounter [address] [address] Primary osteoarthritis of right hip Discharge Disposition: Discharge to home or self care Social History Tobacco Use Types Packs/Day Years Used Date Smoking Tobacco: Former Smokeless Tobacco: Never Personal Safety Answer Date Recorded Getting School Help Needed Not on file 05/13 Comments Unknown Sex and Gender Information Value Date Recorded Sex Assigned at Not on file 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 Gender Identity Not on file Sexual Orientation Not on file documented as of this encounter Medications at Time of Discharge atenoloL (TENORMIN) 25 mg tablet Take 1 tablet (25 mg total) by mouth nightly 03/17/2023 blood glucose control high,low (Accu-Chek Guide L1-L2 Ctrl Nadja) solution by intravitreal route 05/25/2018 blood glucose diagnostic (Accu-Chek Guide test strips) strip by intravitreal route 05/25/2018 blood-glucose meter (Accu-Chek Guide Glucose Meter) [facility] ACCU-CHEK GUIDE W/DEVICE KIT 05/25/2018 calcium carbonate-vitami n D3 (Calcium 500 + D) 1,250 mg (500 mg elemental)-400 unit chewable tablet CALCIUM + D TABLET 09/06/2018 glucosamine sulfate 500 mg capsule GLUCOSAMINE CAPSULE 09/06/2018 lancets 30 gauge [facility] PHARMACIST CHOICE LANCETS 05/25/2018 lancing device [facility] SIMPLE DIAGNOSTICS LANCING DEV 05/25/2018 lisinopriL (PRINIVIL,ZESTRI L) 10 mg tablet Take 1 tablet (10 mg total) by mouth daily 03/30/2023 metFORMIN (GLUCOPHAGE) 500 mg tablet Take 1 tablet (500 mg total) by mouth 2 (two) times a day with meals 09/20/2017 atenolol (TENORMIN) 50 mg tablet 4 atorvastatin (LIPITOR) 40 mg tablet 11/17/2017 4 estradiol (ESTRACE) 1 mg tablet take 1 tablet by oral route every day 0 0 05/13/2015 4 lisinopril (PRINIVIL,ZESTRI L) 20 mg tablet take 1 tablet by oral route every day 0 0 05/13/2015 4 lisinopril-hydro CHLOROthiazide (PRINZIDE,ZESTOR ETIC) 20-25 mg per tabletIndication s:hypertension 4 naproxen (NAPROSYN) 500 mg tablet TAKE 1 TABLET(500 MG) BY MOUTH TWICE DAILY WITH MEALS 60 tablet 02/13/2018 4 omeprazole (PriLOSEC) 40 mg capsule 09/20/2017 4 simvastatin (ZOCOR) 40 mg tablet 4 documented as of this encounter Discharge Disposition Disposition Code Departure Means Destination Discharge to home or self care documented in this encounter Plan of Treatment Not on file documented as of this encounter Procedures Procedure Name Priority Date/Time Associated Diagnosis Comments MRI HIP RIGHT WO CONTRAST Schedule Routine, Read Routine (OP Routine) 01/25/2024 8:34 AM CDT Primary osteoarthritis of right hip documented in this encounter Results * MRI Hip Right [...] 8:48 AM - Electronically signed by ??Sam Rice M.D. MF: [email or web address] D: ??01/25/2024 8:48 AM T: ??01/25/2024 8:48 AM Report ID: [id number] Reading Location: ??[id number] Procedure Note Sam Rice MD - 01/25/2024 [...] 8:48 AM - Electronically signed by Sam Rice M.D. MF: [email or web address] Report ID: [id number] Reading Location: [place] [address] Lacy Curiel DO IMG MRI PROCEDURES Final Resul t documented in this encounter Visit Diagnoses Diagnosis Primary osteoarthritis of right hip documented in this encounter Care Teams Clinical Research Specialist Relationship Specialty Start Date End Date Baldo Bower MD PCP - General Family Practice 11/03/23 documented as of this encounter
--- OUTSIDE RECORDS SUMMARY | 2024-06-12 07:40 | XMS_ITS | Encounter Summary ---
Author Organization [facility] Address [address] [place] [address] Care Team Providers Care Senior Systems Developer Name Role Phone Baldo Bower MD Primary Care Provider + -[phone] Reason for Referral * Occupational Therapy (Routine) - Closed Specialty Diagnoses / Procedures Referred By Contac dne Referred To Contact Occupational Therapy Diagnoses Primary osteoarthritis of right hip Lacy Curiel DO [address] [place] [address] Phone: tel: fax: [facility] OP Physical Therapy [address] [place] [address] Phone: tel: fax: Referral ID Status Reason Start Date Expiration Date V isits Requested Visits Authorized [id number] Closed Evaluate and Treat 02/23/2024 05/29/2024 1 1 Question Answer PTRFR OT Evaluate and Treat Reason for Visit PT/OT Therapy options discussed with patient? Yes Location provided for therapy services is: Patient requested/Patient preferred Please select the performing region: [facility] [[id number]] Please select the performing department: [facility] PT [[id number]] # of visits: 1 Comments Pre-op total joint eval Encounter Details Date Type Department Care Team (Late st Contact Info) Description 02/23/2024 Orders Only [facility] Orthopedics and Sports Medicine [address] [place] [address], [place] [address] Lacy Curiel DO [address] [place] [address] [address] [place] [address] Primary osteoarthritis of right hip (Primary Dx) Social History Tobacco Use Types Packs/Day Years Used Date Smoking Tobacco: Former Smokeless Tobacco: Never Personal Safety Answer Date Recorded Getting School Help Needed Not on file 05/13 Comments Unknown Sex and Gender Information Value Date Recorded Sex Assigned at Not on file Legal Sex 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 Gender Identity Not on file Sexual Orientation Not on file documented as of this encounter Plan of Treatment Scheduled Referrals Name Type Priority Associated Diagnoses Orde r Schedule Ambulatory referral order to Occupational Therapy - Outpatient Referral Routine Primary osteoarthritis of right hip Expected: 03/08/2024 (Approximate), Expires: 02/22/2025 documented as of this encounter Visit Diagnoses Diagnosis Primary osteoarthritis of right hip- Primary documented in this encounter Care Teams Senior Systems Developer Relationship Specialty Start Date End Date Baldo Bower MD PCP - General Family Practice 11/03/23 documented as of this encounter
--- OUTSIDE RECORDS SUMMARY | 2024-06-12 07:41 | XMS_ITS | Encounter Summary ---
Author Organization [facility] Address [address] [place] [address] Care Team Providers Care Slitter And Rewinder Name Role Phone Baldo Bower MD Primary Care Provider + [phone] Reason for Referral * Procedure (Routine) - Authorized Specialty Diagnoses / Procedures Referred By Shari crenshaw Referred To Contact Diagnoses Traumatic incomplete tear of right rotator cuff, subsequent encounter Procedures Large Joint (Hip, Knee, Shoulder) Injection: R subacromial bursa Lacy Curiel DO [address] [facility] [address] [place] [address] Phone: tel: fax: [facility] Referral ID Status Reason Start Date Expiration Date V isits Requested Visits Authorized [id number] Authorized 11/03/2023 12/02/2024 1 1 Reason for Visit * Reason Comments Pain Encounter Details Date Type Department Care Team (Late st Contact Info) Description 11/03/2023 10:45 AM CDT Office Visit [facility] Orthopedics and Sports Medicine [address] [place] [phone] Lacy Curiel DO [address] [facility] [address] [place] [address] Traumatic incomplete tear of right rotator cuff, subsequent encounter (Primary Dx); Right shoulder pain, unspecified chronicity Social History Tobacco Use Types Packs/Day Years Used Date Smoking Tobacco: Former Smokeless Tobacco: Never Personal Safety Answer Date Recorded Getting School Help Needed Not on file 05/13 Comments Unknown Sex and Gender Information Value Date Recorded Sex Assigned at Not on file 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 Follow-up visit CHIEF COMPLAINT She had concerns including Pain of the Right Shoulder. HISTORY OF PRESENT ILLNESS Isela Kendall is a 73 y.o. female who was seen today for consultation requested by Yogi Aguilar MD. They present with 2/10 right shoulder pain. She recently had a ground level fall which exacerbated her hip and shoulder pain. She states she previously had a corticosteroid injection in the right shoulder for a partial-thickness rotator cuff tear over a year ago which helped significantly at that time. She also previously went to physical therapy about a year ago which helped her shoulderpain. PAST MEDICAL HISTORY She has a past medical history of Cancer (CMS/HCC) (), Diabetes mellitus (), Gastric reflux, Hypercholesterolemia, Hypertension, Osteoarthritis, and Skin cancer, basal cell (2012). She has no past medical history of History of chemotherapy, History of radiation therapy, or Smoking. PAST SURGICAL HISTORY She has a past surgical history that includes Total abdominal hysterectomy; Tonsillectomy; and [place] Fluoro Guided Injection Hip Right (Right, 06/01/2023). MEDICATIONS She has a current medication list which includes the following prescription(s): atenolol, atenolol,atorvastatin, estrace, lisinopril, lisinopril, lisinopril- hydrochlorothiazide, metformin, naproxen,omeprazole, and simvastatin. ALLERGIES She is allergic to penicillins and sulfa (sulfonamide antibiotics). SOCIAL HISTORY She reports that she has quit smoking. She has never used smokeless tobacco. No alcohol history on file. FAMILY HISTORY Family History Problem Relation Age [...] no vitals taken for this visit. Right shoulder exam: Patient has full range motion of the right shoulder but she does have increased pain with cross-florencio tenderness to palpation overlying the biceps tendon anteriorly with no obvious Wilian sign present. Patient does have increased pain with resisted shoulder abduction, internal and external rotation. He is intact sensation all digits and 2+ radial pulse. Positive Mora, positive Neer positive cross arm positive Yergason's negative drop-arm Large Joint (Hip, Knee, Shoulder) Injection: R subacromial bursa Performed by: Lacy Curiel DO Authorized by: Lacy Curiel DO Large Joint Injection/Aspiration: Consent Given by: Patient Timeout: prior to procedure the correct patient, procedure, and site was verified Verbal consent obtained: Yes Supporting Documentation: Indications: Pain Procedure Details: Location: Shoulder Site: R subacromial bursa Prep: patient was prepped using a clean technique Needle Size: 22 G Approach: Posterior Ultrasound guided: No Fluroscopic guidance: No Medications: 4 mL lidocaine 10 mg/mL (1 %); 80 mg triamcinolone 40 mg/mL Patient tolerance: Patient tolerated the procedure well with no immediate complications REVIEW OF X-RAYS/STUDIES/LABS Multiple x-rays of the right shoulder performed today independently interpreted by me shows evidence of mild glenohumeral osteoarthritis and moderate to severe AC joint osteoarthritis with no sign offracture or dislocation present. Assessment/Plan: 1. Traumatic incomplete tear of right rotator cuff, subsequent encounter - Large Joint (Hip, Knee, Shoulder) Injection: R subacromial bursa 2. Right shoulder pain, unspecified chronicity - XR Shoulder Right 2 or More Views; Future I discussed with Isela the nature of her rotator cuff tendinitis and previously known partial-thickness rotator cuff tearing. I do believe that she has exacerbated the symptoms with her fall and we discussed the utility of conservative treatment strategies including corticosteroid injection which a subacromial corticosteroid injection was performed today without obvious complication. We discussedthe utility of physical therapy with the patient like to proceed with doing home exercises and a handout was given to her today. She is also having increased pain in her hip since her previous corticosteroid injection therefore a fluoroscopic guided right hip injection was ordered prior to the visit today and we are awaiting radiology to call her to schedule this. I discussed that if she did not have significant pain relief in her right shoulder over the next month that she may call and we consider ordering an MRI of her right shoulder at that time. I also discussed that I would like her to have the previous MRIs images and report sent to us if we do like to proceed with a repeat right shoulder MRI in the future. I would like see her back in 3 months for reassessment. Lacy Curiel DO 11/03/2023 documented in this encounter Plan of Treatment Not on file documented as of this encounter Procedures Procedure Name Priority Date/Time Associated Diagnosis Comments AL ARTHROCENTESIS ASPIR&/INJ MAJOR JT/BURSA W/O US Routine 11/03/2023 10:45 AM CDT Traumatic incomplete tear of right rotator cuff, subsequent encounter documented in this encounter Results * XR Shoulder Right 2 or More Views (11/03/2023 10:50 AM CDT) Anatomical Region Laterality Modality Upper Extremities, Shoulder Right Comp uted Radiography 11/04/2023 1:53 PM CDT Narrative 11/04/2023 1:53 PM CDT EXAM DESCRIPTION: XR SHOULDER RIGHT 2 OR MORE VIEWS REASON FOR STUDY: PAIN ?? F/u. Mild pain. ?? TECHNIQUE: 4 ??radiographic view(s) of the ??right shoulder . COMPARISON: None available FINDINGS: The alignment is normal. ??There is no fracture. ??Moderate acromioclavicular joint osteoarthritis. ??The glenohumeral joint space is normal. ??No aggressive bone lesions or erosions. Mild right basilar atelectasis. IMPRESSION: No acute osseous abnormality. ?? Moderate right acromioclavicular joint osteoarthritis. THIS IS AN ELECTRONICALLY VERIFIED FINAL REPORT 11/04/2023 1:53 PM - Electronically signed by ??Robert Arroyo M.D. AT: AT D: ??11/04/2023 1:53 PM T: ??11/04/2023 1:53 PM Report ID: [id number] Reading Location: ??[id number] Procedure Note Robert Arroyo MD - 11/04/2023 EXAM DESCRIPTION: XR SHOULDER RIGHT 2 OR MORE VIEWS REASON FOR STUDY: PAIN F/u. Mild pain. TECHNIQUE: 4 radiographic view(s) of the right shoulder . COMPARISON: None available FINDINGS: The alignment is normal. There is no fracture. Moderate acromioclavicular joint osteoarthritis. The glenohumeral joint space is normal. No aggressive bone lesions or erosions. Mild right basilar atelectasis. IMPRESSION: No acute osseous abnormality. Moderate rightacromioclavicular joint osteoarthritis. THIS IS AN ELECTRONICALLY VERIFIED FINAL REPORT 11/04/2023 1:53 PM - Electronically signed by Robert Arroyo M.D. AT: AT Report ID: [id number] Reading Location: [id number] us Lacy Curiel DO IMG XR PROCEDURES Final Result * AL ARTHROCENTESIS ASPIR&/INJ MAJOR JT/BURSA W/O US (11/03/2023 10:45 AM CDT) Narrative Lacy Curiel DO - 11/03/2023 10:45 AM CDT Lacy Curiel DO ? 11/03/2023 12:10 PM Large Joint (Hip, Knee, Shoulder) Injection: R subacromial bursa Performed by: Lacy Curiel DO Authorized by: Lacy Curiel DO ?? Large Joint Injection/Aspiration: ??Consent Given by: ??Patient ??Timeout: prior to procedure the correct patient, procedure, and site was verified ?Verbal consent obtained: Yes ?? Supporting Documentation: ??Indications: ??Pain Procedure Details: ??Location: ??Shoulder ??Site: ??R subacromial bursa ??Prep: patient was prepped using a clean technique ?Needle Size: ??22 G ??Approach: ??Posterior ??Ultrasound guided: No ?Fluroscopic guidance: No ?Medications: ??4 mL lidocaine 10 mg/mL (1 %); 80 mg triamcinolone 40 mg/mL ??Patient tolerance: ??Patient tolerated the procedure well with no immediate complications us Newtonadair Moisés DO IN CLINIC/BEDSIDE ORDERABLES F inal Result documented in this encounter Visit Diagnoses Diagnosis Traumatic incomplete tear of right rotator cuff, subsequent encounter- Primary Right shoulder pain, unspecified chronicity Right shoulder pain, unspecified chronicity documented in this encounter Administered Medications Inactive Administered Medications - up to 3 most recent administrations Medication Order MAR Action Action Date Dose Rate Site lidocaine (XYLOCAINE) 10 mg/mL (1 %) injection 4 mL 4 mL, One-Time Injection, Starting on Mojgan 11/03/23 at 1045, For 1 dose, Indications: Administration of Local AnesthesiaIndications:Admini stration of Local Anesthesia Given 11/03/2023 10:45 AM CDT 4 mL Right Shoulder triamcinolone (KENALOG) 40 mg/mL injection 80 mg 80 mg, intra-articular, One-Time Injection, Starting on Mojgan 11/03/23 at 1045, For 1 doseIndications:Traumatic incomplete tear of right rotator cuff, subsequent encounter Given 11/03/2023 10:45 AM CDT 80 mg Right Shoulder documented in this encounter Care Teams Slitter And Rewinder Relationship Specialty Start Date End Date Baldo Bower MD PCP - General Family Practice 11/03/23 documented as of this encounter
--- OUTSIDE RECORDS SUMMARY | 2024-06-12 07:41 | XMS_ITS | Encounter Summary ---
Author Organization Formerly [facility] Address [address] [place] [address] Care Team Providers Care Marshmallow Maker Name Role Phone Yogi Aguilar MD Primary Care Provider [phone] Reason for Referral * Diagnostic Imaging (Routine) - Closed Specialty Diagnoses / Procedures Referred By Shari crenshaw Referred To Contact Diagnoses Primary osteoarthritis of right hip Procedures FL Fluoro Guided Injection Hip Right Lacy Curiel DO [facility] [facility] [address] [place] [address] Phone: tel: fax: [address] [phone] Referral ID Status Reason Start Date Expiration Date Visits Re quested Visits Authorized [id number] Closed 05/19/2023 06/17/2024 1 1 RAISER Reason for Visit * Diagnostic Imaging (Routine) - Closed Specialty Diagnoses / Procedures Referred By Shari crenshaw Referred To Contact Diagnoses Primary osteoarthritis of right hip Procedures FL Fluoro Guided Injection Hip Right Lacy Curiel DO [facility] [facility] [address] [place] [address] Phone: tel: fax: [address] [phone] Referral ID Status Reason Start Date Expiration Date Visits Re quested Visits Authorized [id number] Closed 05/19/2023 06/17/2024 1 1 Encounter Details Date Type Department Care Team (Latest Contact Info) Description 06/01/2023 1:49 PM FORM RAISER - 06/01/2023 11:59 PM FORM RAISER Hospital Encounter [facility] Diagnostic Imaging [address] [place] [id number] Primary osteoarthritis of right hip Discharge Disposition: Discharge to home or self care Social History Tobacco Use Types Packs/Day Years Used Date Smoking Tobacco: Former Smokeless Tobacco: Never Personal Safety Answer Date Recorded Getting School Help Needed Not on file 05/13 Comments Unknown Sex and Gender Information Value Date Recorded Sex Assigned at Not on file Legal Sex Female 1:32 PM FORM RAISER Gender Identity Not on file Sexual Orientation [...] 05/25/2018 blood-glucose meter (Accu-Chek Guide Glucose Meter) [facility] ACCU-CHEK GUIDE W/DEVICE KIT 05/25/2018 calcium carbonate-vitami n D3 (Calcium 500 + D) 1,250 mg (500 mg elemental)-400 unit chewable tablet CALCIUM + D TABLET 09/06/2018 glucosamine sulfate 500 mg capsule GLUCOSAMINE CAPSULE 09/06/2018 lancets 30 gauge [facility] PHARMACIST CHOICE LANCETS 05/25/2018 lancing device [facility] SIMPLE DIAGNOSTICS LANCING DEV 05/25/2018 lisinopriL (PRINIVIL,ZESTRI [...] Procedure Name Priority Date/Time Associated Diagnosis Comments FLUORO GUIDED INJECTION HIP RIGHT Schedule Routine, Read Routine (OP Routine) 06/01/2023 2:58 PM FORM RAISER Primary osteoarthritis of right hip documented in this encounter Results * FL Fluoro Guided Injection Hip Right (06/01/2023 2:58 PM FORM RAISER) Anatomical Region Laterality Modality Hip Right Computed Radiogr aphy, Computed Radiography 06/01/2023 3:12 PM FORM RAISER Narrative 06/01/2023 3:15 PM FORM RAISER EXAM DESCRIPTION: ?? FL FLUORO GUIDED INJECTION HIP RIGHT REASON FOR STUDY: ?? osteoarthritis ?? F/t: 17 seconds ??mGy: 1.0 ??Image count: 2 ?Hip pain. COMPARISON: 05/13/2023 RADIATION DOSE: Dose: ??1.0 ?? mGy Reference Air Kerma (Ka,r) TECHNIQUE/FINDINGS: Risk, benefits, and alternatives of the procedure were explained to the patient and informed consent was obtained. ??The area was prepped and draped in the usual sterile fashion. ??Utilizing fluoroscopic guidance, 22 ??spinal needle was directed into the joint space and a small about of a 2:1 mixture of nonionic contrast and ??0.25% bupivacaine ??was injected to confirm intra-articular placement. Subsequently 40 mg Kenalog, 3 mL ??0.25% bupivacaine , 2 mL nonionic contrast was injected into the joint space. IMPRESSION: Successful ?? right ??hip steroid injection. THIS IS AN ELECTRONICALLY VERIFIED FINAL REPORT 06/01/2023 3:15 PM - Electronically signed by ??Elias GARCIA: JOSE D: ??06/01/2023 3:15 PM T: ??06/01/2023 3:15 PM Report ID: [id number] Reading Location: ??[id number] Procedure Note Elias Gutierrez MD - 06/01/2023 EXAM DESCRIPTION: FL FLUORO GUIDED INJECTION HIP RIGHT REASON FOR STUDY: osteoarthritis F/t: 17 seconds mGy: 1.0 Image count: 2 Hip pain. COMPARISON: 05/13/2023 RADIATION DOSE: Dose: 1.0 mGy Reference Air Kerma (Ka,r) TECHNIQUE/FINDINGS: Risk, benefits, and alternatives of the procedure were explained to the patient and informed consent was obtained. The area was prepped and draped in the usual sterile fashion. Utilizing fluoroscopic guidance, 22 spinal needle was directed into the joint space and a small about of a 2:1 mixture of nonionic contrast and 0.25% bupivacaine was injected to confirm intra-articular placement. Subsequently 40 mg Kenalog,3 mL 0.25% bupivacaine , 2 mL nonionic contrast was injected into the joint space. IMPRESSION: Successful right hip steroid injection. THIS IS AN ELECTRONICALLY VERIFIED FINAL REPORT 06/01/2023 3:15 PM - Electronically signed by Elias GACRIA: JOSE Report ID: [id number] Reading Location: [id number] Lacy Curiel DO IM FLUOROSCOPY PROCEDURES Fin al Result documented in this encounter Visit Diagnoses Diagnosis Primary osteoarthritis of right hip documented in this encounter Administered Medications Inactive Administered Medications - up to 3 most recent administrations Medication Order MAR Action Action Date Dose Rate Site BUPivacaine (MARCAINE) 0.25 % (2.5 mg/mL) preservative free injection 12.5 mg 12.5 mg (5 mL), intra-articular, Once, On Tue06/01/23 at 1545, For 1 dose Given 06/01/2023 3:08 PM FORM RAISER 12.5 mg iohexoL (OMNIPAQUE) 240 mg iodine/mL injection solution 10 mL 10 mL, intra-articular, Once in imaging, contrast, Starting on Tue06/01/23 at 1500, For 1 dose Contrast Given 06/01/2023 3:08 PM FORM RAISER 10 mL triamcinolone (KENALOG) 40 mg/mL injection 40 mg 40 mg, intra-articular, Once, On Tue06/01/23 at 1545, For 1 dose Given 06/01/2023 3:08 PM FORM RAISER 40 mg documented in this encounter Care Teams Marshmallow Maker Relationship Specialty Start Date End Date Yogi Aguilar MD [address] [place] [address] PCP - General 03/19/16 11/02/23 documented as of this encounter
--- OUTSIDE RECORDS SUMMARY | 2024-06-12 07:41 | XMS_ITS | Encounter Summary ---
Author Organization [facility] Healthcare Address [address] [place] [address] Care Team Providers Care Multimedia Project Manager Name Role Phone Yogi Aguilar MD Primary Care Provider [phone] Baldo Bower MD Primary Care Provider [phone] Reason for Referral * Diagnostic Imaging (Routine) - Closed Specialty Diagnoses / Procedures Referred By Shari crenshaw Referred To Contact Diagnoses Primary osteoarthritis of right hip Procedures FL Fluoro Guided Injection Hip Right Lacy Curiel DO [address] [place] [address] [address] [place] [address] Phone: tel: fax: [address] [phone] Referral ID Status Reason Start Date Expiration Date Visits Re quested Visits Authorized [id number] Closed 11/02/2023 12/01/2024 1 1 Encounter Details Date Type Department Care Team (Late st Contact Info) Description 11/02/2023 Orders Only [facility] Medical Group Orthopedics and Sports Medicine [address] [place] [phone] Lacy Curiel DO [address] [facility] [place] [address] Primary osteoarthritis of right hip (Primary Dx) Social History Tobacco Use Types Packs/Day Years Used Date Smoking Tobacco: Former Smokeless Tobacco: Never Personal Safety Answer Date Recorded Getting School Help Needed Not on file 05/13 Comments Unknown Sex and Gender Information Value Date Recorded Sex Assigned at Not on file 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 FL FLUORO GUIDED INJECTION HIP RIGHT REASON FOR STUDY: ?? osteoarthritis ?? COMPARISON: ?? 06/01/2023 RADIATION DOSE: Dose: ??0.8 ?? mGy Reference Air Kerma (Ka,r) TECHNIQUE/FINDINGS: Risk, benefits, and alternatives of the procedure were explained to the patient and informed consent was obtained. ??The area was prepped and draped in the usual sterile fashion. ??Utilizing fluoroscopic guidance, a ??22-gauge spinal needle was directed into the hip joint space and a small amount of ?? Omnipaque 240 contrast was injected to confirm intra-articular placement. ??The 1st contrast injection was extra-articular. ??The needle tip was repositioned and repeat contrast injection demonstrated intra-articular contrast. ??Then 40 mg of Kenalog and ??3 mL of 0.25% bupivacaine were injected without complication. IMPRESSION: Successful ?? right ??hip steroid injection. THIS IS AN ELECTRONICALLY VERIFIED FINAL REPORT 11/10/2023 4:22 PM - Electronically signed by ??Kye Espinosa M.D. MM: MM D: ??11/10/2023 4:21 PM T: ??11/10/2023 4:22 PM Report ID: [id number] Reading Location: ??[id number] Procedure Note Kye Espinosa MD - 11/10/2023 EXAM DESCRIPTION: FL FLUORO GUIDED INJECTION HIP RIGHT REASON FOR STUDY: osteoarthritis COMPARISON: 06/01/2023 RADIATION DOSE: Dose: 0.8 mGy Reference Air Kerma (Ka,r) TECHNIQUE/FINDINGS: Risk, benefits, and alternatives of the procedure were explained to the patient and informed consent was obtained. The area was prepped anddraped in the usual sterile fashion. Utilizing fluoroscopic guidance, a 22-gauge spinal needle was directed into the hip joint space and a small amount of Omnipaque 240 contrast was injected to confirm intra-articular placement.The 1st contrast injection was extra-articular. The needle tip wasrepositioned and repeat contrast injection demonstrated intra-articular contrast. Then40 mg of Kenalog and 3 mL of 0.25% bupivacaine were injected without complication. IMPRESSION: Successful right hip steroid injection. THIS IS AN ELECTRONICALLY VERIFIED FINAL REPORT 11/10/2023 4:22 PM - Electronically signed by Kye Espinosa M.D. MM: MM Report ID: [id number] Reading Location: [id number] us Lacy Curiel DO IMG FLUOROSCOPY PROCEDURES Fin al Result documented in this encounter Visit Diagnoses Diagnosis Primary osteoarthritis of right hip- Primary Primary osteoarthritis of right hip documented in this encounter Care Teams Multimedia Project Manager Relationship Specialty Start Date End Date Yogi Aguilar MD [address] [place] [address] PCP - General 03/19/16 11/02/23 Baldo Bower MD [address] [place] [address] PCP - General Family Practice 11/03/23 documented as of this encounter
--- OUTSIDE RECORDS SUMMARY | 2024-06-12 07:41 | XMS_ITS | Encounter Summary ---
Author Organization [facility] Address [address] [place] [address] Care Team Providers Care Leather Goods I Assembler Name Role Phone Yogi Aguilar MD Primary Care Provider [phone] Reason for Referral * Diagnostic Imaging (Routine) - Closed Specialty Diagnoses / Procedures Referred By Contac t Referred To Contact Diagnoses Right hip pain Procedures XR Hip Right 2 or 3 Views W Pelvis Lacy Curiel DO [facility] [facility] [address] [place] [address] Phone: tel: fax: [address] [phone] Referral ID Status Reason Start Date Expiration Date Visits Re quested Visits Authorized [id number] Closed 05/13/2023 06/11/2024 1 1 H ARNP * Diagnostic Imaging (Routine) - Closed Specialty Diagnoses / Procedures Referred By Contac t Referred To Contact Diagnoses Right knee pain, unspecified chronicity Procedures XR Knee Right 3 Views Lacy Curiel DO [facility] [facility] [address] [place] [address] Phone: tel: fax: [address] [phone] Referral ID Status Reason Start Date Expiration Date Visits Re quested Visits Authorized [id number] Closed 05/13/2023 06/11/2024 1 1 H ARNP Reason for Visit * Diagnostic Imaging (Routine) - Closed Specialty Diagnoses / Procedures Referred By Shari t Referred To Contact Diagnoses Right knee pain, unspecified chronicity Procedures XR Knee Right 3 Views Lacy Curiel DO [address] [place] [address] Phone: tel: fax: [address] [phone] Referral ID Status Reason Start Date Expiration Date Visits Re quested Visits Authorized [id number] Closed 05/13/2023 06/11/2024 1 1 Encounter Details Date Type Department Care Team (Latest Contact Info) Description 05/13/2023 9:18 AM PSYCH ARNP - 05/13/2023 11:59 PM PSYCH ARNP Hospital Encounter [facility] M[facility] 1 DIAG IMG [address] [place] [address] Right knee pain, unspecified chronicity; Right hip pain Discharge Disposition: Discharge to home or self care Social History Tobacco Use Types Packs/Day Years Used Date Smoking Tobacco: Former Smokeless Tobacco: Never Personal Safety Answer Date Recorded Getting School Help Needed Not on file 05/13 Comments Unknown Sex and Gender Information Value Date Recorded Sex Assigned at Not on file Legal Sex Female 1:32 PM PSYCH ARNP Gender Identity Not on file Sexual Orientation [...] 05/25/2018 blood-glucose meter (Accu-Chek Guide Glucose Meter) [facility] ACCU-CHEK GUIDE W/DEVICE KIT 05/25/2018 calcium carbonate-vitami n D3 (Calcium 500 + D) 1,250 mg (500 mg elemental)-400 unit chewable tablet CALCIUM + D TABLET 09/06/2018 glucosamine sulfate 500 mg capsule GLUCOSAMINE CAPSULE 09/06/2018 lancets 30 gauge [facility] PHARMACIST CHOICE LANCETS 05/25/2018 lancing device [facility] SIMPLE DIAGNOSTICS LANCING DEV [...] VIEWS Schedule Routine, Read Routine (OP Routine) 05/13/2023 9:33 AM PSYCH ARNP Right hip pain XR KNEE RIGHT 3 VIEWS Schedule Routine, Read Routine (OP Routine) 05/13/2023 9:33 AM PSYCH ARNP Right knee pain, unspecified chronicity documented in this encounter Results * XR Hip Right 2 or 3 Views W Pelvis (05/13/2023 9:33 AM PSYCH ARNP) Anatomical Region Laterality Modality Lower Extremities, Hip, Pelvis Right C omputed Radiography 05/13/2023 10:1 0 PM PSYCH ARNP Narrative 05/13/2023 10:11 PM PSYCH ARNP EXAM DESCRIPTION: XR KNEE RIGHT 3 VIEWS; XR HIP RIGHT 2 OR 3 VIEWS W PELVIS REASON FOR STUDY: Right knee and hip pain. Pain after fall x 2 weeks ago ? FINDINGS: Three views right knee and two views right hip submitted without comparison. Right hip: No acute fractures are identified. ??The femoral heads are well seated. ??There is mild bilateral hip osteoarthritis. ??Pubic symphysis osteoarthritis is present. ??There is inferior lumbar degenerative disc disease. Right knee: No acute fractures are identified. ??Alignment is normal. ??There is mild medial and patellofemoral bicompartmental right knee osteoarthritis. ??Small effusion is present. ??Chondrocalcinosis is noted. IMPRESSION: No acute fracture. Mild bilateral hip osteoarthritis. Mild medial and patellofemoral bicompartmental right knee osteoarthritis with a small effusion. Inferior lumbar degenerative disc disease. THIS IS AN ELECTRONICALLY VERIFIED FINAL REPORT 05/13/2023 10:11 PM - Electronically signed by ??Sam Rice M.D. MF: TAMARA D: ??05/13/2023 10:11 PM T: ??05/13/2023 10:11 PM Report ID: [id number] Reading Location: ??[id number] Procedure Note Sam Rice MD - 05/13/2023 EXAM DESCRIPTION: XR KNEE RIGHT 3 VIEWS; XR HIP RIGHT 2 OR 3 VIEWS W PELVIS REASON FOR STUDY: Right knee and hip pain. Pain after fall x 2 weeks ago FINDINGS: Three views right knee and two views right hip submitted without comparison. Right hip: No acute fractures are identified. The femoral heads are well seated.There is mild bilateral hip osteoarthritis. Pubic symphysis osteoarthritis is present. There is inferior lumbar degenerative disc disease. Right knee: No acute fractures are identified. Alignment is normal. There is mildmedial and patellofemoral bicompartmental right knee osteoarthritis. Smalleffusion is present. Chondrocalcinosis is noted. IMPRESSION: No acute fracture. Mild bilateral hip osteoarthritis. Mild medial and patellofemoral bicompartmental right knee osteoarthritiswith a small effusion. Inferior lumbar degenerative disc disease. THIS IS AN ELECTRONICALLY VERIFIED FINAL REPORT 05/13/2023 10:11 PM - Electronically signed by Sam Rice M.D. MF: TAMARA Report ID: [id number] Reading Location: [id number] us Lacy Curiel DO IMG XR PROCEDURES Final Result * XR Knee Right 3 Views (05/13/2023 9:33 AM PSYCH ARNP) Anatomical Region Laterality Modality Lower Extremities, Knee Right Computed Radiography 05/13/2023 10:1 0 PM PSYCH ARNP Narrative 05/13/2023 10:11 PM PSYCH ARNP EXAM DESCRIPTION: XR KNEE RIGHT 3 VIEWS; XR HIP RIGHT 2 OR 3 VIEWS W PELVIS REASON FOR STUDY: Right knee and hip pain. Pain after fall x 2 weeks ago ? FINDINGS: Three views right knee and two views right hip submitted without comparison. Right hip: No acute fractures are identified. ??The femoral heads are well seated. ??There is mild bilateral hip osteoarthritis. ??Pubic symphysis osteoarthritis is present. ??There is inferior lumbar degenerative disc disease. Right knee: No acute fractures are identified. ??Alignment is normal. ??There is mild medial and patellofemoral bicompartmental right knee osteoarthritis. ??Small effusion is present. ??Chondrocalcinosis is noted. IMPRESSION: No acute fracture. Mild bilateral hip osteoarthritis. Mild medial and patellofemoral bicompartmental right knee osteoarthritis with a small effusion. Inferior lumbar degenerative disc disease. THIS IS AN ELECTRONICALLY VERIFIED FINAL REPORT 05/13/2023 10:11 PM - Electronically signed by ??Sam Rice M.D. MF: TAMARA D: ??05/13/2023 10:11 PM T: ??05/13/2023 10:11 PM Report ID: [id number] Reading Location: ??[id number] Procedure Note Sam Rice MD - 05/13/2023 EXAM DESCRIPTION: XR KNEE RIGHT 3 VIEWS; XR HIP RIGHT 2 OR 3 VIEWS W PELVIS REASON FOR STUDY: Right knee and hip pain. Pain after fall x 2 weeks ago FINDINGS: Three views right knee and two views right hip submitted without comparison. Right hip: No acute fractures are identified. The femoral heads are well seated.There is mild bilateral hip osteoarthritis. Pubic symphysis osteoarthritis is present. There is inferior lumbar degenerative disc disease. Right knee: No acute fractures are identified. Alignment is normal. There is mildmedial and patellofemoral bicompartmental right knee osteoarthritis. Smalleffusion is present. Chondrocalcinosis is noted. IMPRESSION: No acute fracture. Mild bilateral hip osteoarthritis. Mild medial and patellofemoral bicompartmental right knee osteoarthritiswith a small effusion. Inferior lumbar degenerative disc disease. THIS IS AN ELECTRONICALLY VERIFIED FINAL REPORT 05/13/2023 10:11 PM - Electronically signed by Sam Rice M.D. MF: TAMARA Report ID: [id number] Reading Location: [place] [address] Lacy Curiel DO IMG XR PROCEDURES Final Result documented in this encounter Visit Diagnoses Diagnosis Right knee pain, unspecified chronicity Right hip pain Pain in joint, pelvic region and thigh documented in this encounter Care Teams Leather Goods I Assembler Relationship Specialty Start Date End Date Yogi Aguilar MD [address] [facility] [address] [facility] [address] [place] [address] PCP - General 03/19/16 11/02/23 documented as of this encounter
--- OUTSIDE RECORDS SUMMARY | 2024-06-12 07:41 | XMS_ITS | Encounter Summary ---
Author Organization [facility] Healthcare Address [address] [place] [address] Care Team Providers Care Heavy Truck Technician Name Role Phone Yogi Aguilar MD Primary Care Provider [phone] Reason for Visit * Reason Comments Follow-up Follow-up Encounter Details Date Type Department Care Team (Late st Contact Info) Description 07/01/2023 10:00 AM SOLDERING MACHINE OPERATOR AUTOMATIC Office Visit [facility] Medical Group Orthopedics and Sports Medicine [address] [place] [address] [phone] Lacy Curiel, [address] [place] [address] [address] Primary osteoarthritis of right hip (Primary Dx) Social History Tobacco Use Types Packs/Day Years Used Date Smoking Tobacco: Former Smokeless Tobacco: Never Tobacco Cessation:Counseling Given: Not Answered Personal Safety Answer Date Recorded Getting School Help Needed Not on file 05/13 Comments Unknown Sex and Gender Information Value Date Recorded Sex Assigned at Not on file Legal Sex Female 1:32 PM SOLDERING MACHINE OPERATOR AUTOMATIC Gender Identity Not on file Sexual Orientation Not on file documented as of this encounter Last Filed Vital Signs Vital Sign Reading Time Taken Comments Blood Pressure - - Pulse - - Temperature - - Respiratory Rate - - Oxygen Saturation - - Inhaled Oxygen Concentration - - Weight 64.4 kg (142 lb) 07/01/2023 10:20 AM SOLDERING MACHINE OPERATOR AUTOMATIC Height 157.5 cm (5' 2 ) 07/01/2023 10:20 AM SOLDERING MACHINE OPERATOR AUTOMATIC Body Mass Index 25.97 07/01/2023 10:20 AM SOLDERING MACHINE OPERATOR AUTOMATIC documented in this encounter Progress Notes * Lacy Curiel, DO - 07/01/2023 10:00 AM CST Images from the original note were not included. Follow-up visit CHIEF COMPLAINT She had concerns including Follow-up of the Right Knee and Follow-up of the Right Hip. HISTORY OF PRESENT ILLNESS Isela Kendall is a 73 y.o. female who was seen today for follow up. They present with 0 right hip pain at this time. She has been taking Tylenol for pain relief and had a fluoroscopic guided right hip injection on 06/01/[address] Elias Gutierrez. Tor states that she had significant relief from her symptomatic right hip osteoarthritis after the injection of the point where she was able to ambulate over 8 miles walking at [place] with her family and she is very pleased with the improvement of her symptomatology since the injection. MEDICATIONS She has a current medication list which includes the following prescription(s): atenolol, atenolol,atorvastatin, estrace, lisinopril, lisinopril, lisinopril- hydrochlorothiazide, metformin, naproxen,omeprazole, and simvastatin. ALLERGIES She is allergic to penicillins and sulfa (sulfonamide antibiotics). REVIEW OF SYSTEMS Constitutional: Positive for activity change Musculoskeletal: Positive for arthralgias PHYSICAL EXAM Ht 157.5 cm (5' 2 ) Wt 64.4 kg (142 lb) BMI 25.97 kg/m?? Right hip exam: Mild tenderness to palpation laterally overlying the greater trochanteric bursa. No pain with resisted hip flexion extension internal or external rotation of the hip. No groin pain elicited with flexion and internal rotation of the hip. Patient has 5/5 strength with hip flexion and extension intactsensation in all toes and 2+ dorsalis pedis pulse. REVIEW OF X-RAYS/STUDIES/LABS None today Assessment/Plan: 1. Primary osteoarthritis of right hip I discussed with Isela that the significant relief that she is received due to her intra-articular right hip steroid injections makes it very clear that she does have symptomatic right hip osteoarthritis. Since she has not having any pain currently we will hold off on any further interventions at this time other than continue utilize Tylenol as needed for pain relief. I would like her to continueexercising and if she does have an increase in pain in the future we can always consider a repeat corticosteroid injection in the right hip. I would like her to follow up with me on an as-needed basis in the future. Lacy Curiel DO 07/01/2023 ERING MACHINE OPERATOR AUTOMATIC documented in this encounter Plan of Treatment Not on file documented as of this encounter Visit Diagnoses Diagnosis Primary osteoarthritis of right hip- Primary documented in this encounter Care Teams Heavy Truck Technician Relationship Specialty Start Date End Date Yogi Aguilar MD [address] [facility] [address] [place] [id number] PCP - General 03/19/16 11/02/23 documented as of this encounter
--- OUTSIDE RECORDS SUMMARY | 2024-06-12 07:41 | XMS_ITS | Encounter Summary ---
Author Organization Formerly [facility] Address [address] [place] [address] Care Team Providers Care Acute Dialysis Nurse Name Role Phone Yogi Aguilar MD Primary Care Provider [phone] Reason for Referral * Diagnostic Imaging (Routine) - Closed Specialty Diagnoses / Procedures Referred By Shari crenshaw Referred To Contact Diagnoses Primary osteoarthritis of right hip Procedures FL Fluoro Guided Injection Hip Right Lacy Curiel DO [facility] [facility] [address] [place] [address] Phone: tel: fax: [address] [phone] Referral ID Status Reason Start Date Expiration Date Visits Re quested Visits Authorized [id number] Closed 05/19/2023 06/17/2024 1 1 ESCENT COUNSELOR * Diagnostic Imaging (Routine) - Closed Specialty Diagnoses / Procedures Referred By Shari crenshaw Referred To Contact Diagnoses Right knee pain, unspecified chronicity Procedures XR Knee Right 3 Views Lacy Curiel DO [address] [place] [address] [address] [place] [address] Phone: tel: fax: [address] [phone] Referral ID Status Reason Start Date Expiration Date Visits Re quested Visits Authorized [id number] Closed 05/13/2023 06/11/2024 1 1 ESCENT COUNSELOR * Diagnostic Imaging (Routine) - Closed Specialty Diagnoses / Procedures Referred By Shari crenshaw Referred To Contact Diagnoses Right hip pain Procedures XR Hip Right 2 or 3 Views W Pelvis Lacy Curiel DO [address] [facility] [address] [place] [address] Phone: tel: fax: [address] [phone] Referral ID Status Reason Start Date Expiration Date Visits Re quested Visits Authorized [id number] Closed 05/13/2023 06/11/2024 1 1 ESCENT COUNSELOR Reason for Visit * Reason Comments Pain Pain Encounter Details Date Type Department Care Team (Late st Contact Info) Description 05/13/2023 9:45 AM ADOLESCENT COUNSELOR Office Visit [facility] Medical Group Orthopedics and Sports Medicine [address] [place] [phone] Lacy Curiel DO [address] [facility] [address] [place] [address] Primary osteoarthritis of right hip (Primary Dx); Primary osteoarthritis of right knee; Right hip pain; Right knee pain, unspecified chronicity Social History Tobacco Use Types Packs/Day Years Used Date Smoking Tobacco: Former Smokeless Tobacco: Never Tobacco Cessation:Counseling Given: Not Answered Personal Safety Answer Date Recorded Getting School Help Needed Not on file 05/13 Comments Unknown Sex and Gender Information Value Date Recorded Sex Assigned at Not on file Legal Sex Female 1:32 PM ADOLESCENT COUNSELOR Gender Identity Not on file Sexual Orientation Not on file documented as of this encounter Last Filed Vital Signs Vital Sign Reading Time Taken Comments Blood Pressure - - Pulse - - Temperature - - Respiratory Rate - - Oxygen Saturation - - Inhaled Oxygen Concentration - - Weight 64.4 kg (142 lb) 05/13/2023 9:17 AM ADOLESCENT COUNSELOR Height 157.5 cm (5' 2 ) 05/13/2023 9:17 AM ADOLESCENT COUNSELOR Body Mass Index 25.97 05/13/2023 9:17 AM ADOLESCENT COUNSELOR documented in this encounter Progress Notes * Lacy Curiel, - 05/13/2023 9:45 AM CST Images from the original note were not included. New patient visit CHIEF COMPLAINT She had concerns including Pain of the Right Knee and Pain of the Right Hip. HISTORY OF PRESENT ILLNESS Isela Kendall is a 73 y.o. female who was seen today for consultation requested by Yogi Aguilar MD. They present with 7/10 right hip pain that is worse with activity and going up and down stairs and 3/10 intermittent right knee pain. She has some low back pain and her right hip pain radiates into her groin frequently. She has been taking meloxicam 7.5 mg as she previously had an ulcer with 15 mg of meloxicam. She also takes Tylenol for pain relief. She has no history of surgery on either limb. She has a previous DEXA scan that was within normal limits recently but is decreased from previous DEXA in 2018. She has previously performed physical therapy about 5 years ago and has a history of being seen by Dr. Crespo who performed a right hip trochanteric bursa injection. PAST MEDICAL HISTORY She has a past medical history of Cancer (CMS/HCC) (), Diabetes mellitus (), Gastric reflux, Hypercholesterolemia, Hypertension, Osteoarthritis, and Skin cancer, basal cell (2012). She has no past medical history of History of chemotherapy, History of radiation therapy, or Smoking. PAST SURGICAL HISTORY She has a past surgical history that includes Total abdominal hysterectomy and Tonsillectomy. MEDICATIONS She has a current medication list which includes the following prescription(s): atenolol, lisinopril, atenolol, atorvastatin, estrace, lisinopril, lisinopril- hydrochlorothiazide, metformin, naproxen,omeprazole, and simvastatin. [...] lb) BMI 25.97 kg/m?? Right hip exam: 5/5 strength with hip flexion-extension with pain and crepitance throughout range of motion. Patient has exacerbated groin pain with hip flexion and internal rotation. She is limited internal rotation to 5??. She has external rotation to 15?? mild tenderness to palpation about the lateral aspect ofthe hip. Mild tenderness palpation of the lumbar spine, SI joint and overlying the piriformis tendon. Right knee exam: 5/5 strength with full range of motion in flexion-extension of the knee. Stable varus valgus stresstesting at 0 or 30?? of flexion mild pain and crepitance throughout range of motion. Nontender to palpation about the medial and lateral joint lines negative Alise's test. Intact sensation in all toes and 2+ dorsalis pedis pulse. REVIEW OF X-RAYS/STUDIES/LABS Multiple x-rays including AP pelvis and frog-leg lateral of the right hip performed today and independently interpreted by me show moderate osteoarthritis of the right hip with no sign of fracture ordislocation present. There is evidence of mild SI osteoarthritis present. Multiple x-rays of the right knee performed today and independently interpreted by me shows moderate tricompartmental osteoarthritis of the right knee with evidence of chondrocalcinosis in the medialand lateral joint lines. Assessment/Plan: 1. Primary osteoarthritis of right knee 2. Primary osteoarthritis of right hip - FL Fluoro Guided Injection Hip Right; Future 3. Right hip pain - XR Hip Right 2 or 3 Views W Pelvis; Future 4. Right knee pain, unspecified chronicity - XR Knee Right 3 Views; Future I discussed with Isela the nature of her right hip and right knee osteoarthritis and as her right hip is hurting her significantly worse than her right knee we elected to proceed with a right hip fluoroscopic guided injection that will be performed by Interventional Radiology. I discussed that she should keep a log of her symptomatology after the injection as this injection can likely be diagnosti c and therapeutic as she also does have some lumbar pain that may be radiating over her thigh region. We would like to hold off on corticosteroid injections of the right knee at this time as the painisn't significantly affecting her activities currently. We discussed that it is appropriate that she utilizes meloxicam and Tylenol for pain relief. We also discussed that if she is having continued intermittent lumbar pain that I would like to have her referred to see our nurse practitioner Alexia aRmos for further workup. I would like to see her back in clinic in 2 months for reassessment if she has had her fluoroscopic guided hip injection. Lacy Curiel DO 05/13/2023 ESCENT COUNSELOR documented in this encounter Plan of Treatment Not on file documented as of this encounter Results * FL Fluoro Guided Injection Hip Right (06/01/2023 2:58 PM ADOLESCENT COUNSELOR) Anatomical Region Laterality Modality Hip Right Computed Radiogr aphy, Computed Radiography 06/01/2023 3:12 PM ADOLESCENT COUNSELOR Narrative 06/01/2023 3:15 PM ADOLESCENT COUNSELOR EXAM DESCRIPTION: ?? FL FLUORO GUIDED INJECTION [...] 3:15 PM - Electronically signed by ??Elias Gutierrez M.D. KN: JOSE D: ??06/01/2023 3:15 PM T: ??06/01/2023 3:15 PM Report ID: [id number] Reading Location: ??[id number] Procedure Note Elias Gutierrez MD - 06/01/2023 [...] 3:15 PM - Electronically signed by Elias Gutierrez M.D. KN: JOSE Report ID: [id number] Reading Location: [id number] Lacy Curiel DO IMG FLUOROSCOPY PROCEDURES Fin al Result * XR Knee Right 3 Views (05/13/2023 9:33 AM ADOLESCENT COUNSELOR) Anatomical Region Laterality Modality Lower Extremities, Knee Right Computed Radiography 05/13/2023 10:1 0 PM ADOLESCENT COUNSELOR Narrative 05/13/2023 10:11 PM ADOLESCENT COUNSELOR EXAM DESCRIPTION: XR KNEE RIGHT 3 VIEWS; [...] PM T: ??05/13/2023 10:11 PM Report ID: [id number] Reading Location: ??[id number] Procedure Note Sam Rice MD - 05/13/2023 [...] Sam Rice M.D. MF: TAMARA Report ID: [id number] Reading Location: [place] [address] Lacy Curiel DO IMG XR PROCEDURES Final Result * XR Hip Right 2 or 3 Views W Pelvis (05/13/2023 9:33 AM ADOLESCENT COUNSELOR) Anatomical Region Laterality Modality Lower Extremities, Hip, Pelvis Right C omputed Radiography 05/13/2023 10:1 0 PM ADOLESCENT COUNSELOR Narrative 05/13/2023 10:11 PM ADOLESCENT COUNSELOR EXAM DESCRIPTION: XR KNEE RIGHT 3 VIEWS; [...] PM T: ??05/13/2023 10:11 PM Report ID: [id number] Reading Location: ??[id number] Procedure Note Sam Rice MD - 05/13/2023 [...] Sam Rice M.D. MF: TAMARA Report ID: [id number] Reading Location: [place] [address] Marlonadrianna Curiel DO IMG XR PROCEDURES Final Result documented in this encounter Visit Diagnoses Diagnosis Primary osteoarthritis of right hip- Primary Primary osteoarthritis of right knee Right hip pain Pain in joint, pelvic region and thigh Right knee pain, unspecified chronicity Right knee pain, unspecified chronicity Right hip pain Pain in joint, pelvic region and thigh Primary osteoarthritis of right hip documented in this encounter Historical Medications * This list may reflect changes made after this encounter. atenoloL (TENORMIN) 25 mg tablet Take 1 tablet (25 mg total) by mouth nightly 03/17/2023 lisinopriL (PRINIVIL,ZESTRIL ) 10 mg tablet Take 1 tablet (10 mg total) by mouth daily 03/30/2023 added in this encounter Care Teams Acute Dialysis Nurse Relationship Specialty Start Date End Date Yogi Aguilar MD [address] [facility] [address] [place] [address] PCP - General 03/19/16 11/02/23 documented as of this encounter
--- OUTSIDE RECORDS SUMMARY | 2024-06-12 07:41 | XMS_ITS | Encounter Summary ---
Author Organization [facility] Address [address] [place] [address] Care Team Providers Care Hide Examiner Name Role Phone Yogi Aguilar MD Primary Care Provider [phone] Reason for Referral * Diagnostic Imaging (Routine) - Closed Specialty Diagnoses / Procedures Referred By Shari crenshaw Referred To Contact Diagnoses Encounter for screening for malignant neoplasm of breast, unspecified screening modality Procedures Screening Mammogram Bilateral W Freddie Reynolds DO Phone: tel: fax: [address] [phone] Referral ID Status Reason Start Date Expiration Date Visits Re quested Visits Authorized [id number] Closed 03/12/2020 04/11/2021 1 1 Reason for Visit * Diagnostic Imaging (Routine) - Closed Specialty Diagnoses / Procedures Referred By Shari crenshaw Referred To Contact Diagnoses Encounter for screening for malignant neoplasm of breast, unspecified screening modality Procedures Screening Mammogram Bilateral W Freddie Reynolds DO Phone: tel: fax: [address] [phone] Referral ID Status Reason Start Date Expiration Date Visits Re quested Visits Authorized [id number] Closed 03/12/2020 04/11/2021 1 1 Encounter Details Date Type Department Care Team (Latest Contact Info) Description 03/19/2020 11:13 AM CDT - 03/19/2020 11:59 PM CDT Hospital Encounter [facility] [address] [place] [address] JadenColineDO [address] [address] Encounter for screening for malignant neoplasm of breast, unspecified screening modality Discharge Disposition: Discharge to home or self care Social History Tobacco Use Types Packs/Day Years Used Date Smoking Tobacco: Former Smokeless Tobacco: Never Comments Unknown Sex and Gender Information Value Date Recorded Sex Assigned at Not on file Legal 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 Gender Identity Not on file Sexual Orientation Not on file documented as of this encounter Medications at Time of Discharge blood glucose control high,low (Accu-Chek Guide L1-L2 Ctrl Nadja) solution by intravitreal route 05/25/2018 blood glucose diagnostic (Accu-Chek Guide test strips) strip by intravitreal route 05/25/2018 blood-glucose meter (Accu-Chek Guide Glucose Meter) [facility] ACCU-CHEK GUIDE W/DEVICE KIT 05/25/2018 calcium carbonate-vitami n D3 (Calcium 500 + D) 1,250 mg (500 mg elemental)-400 unit chewable tablet CALCIUM + D TABLET 09/06/2018 glucosamine sulfate 500 mg capsule GLUCOSAMINE CAPSULE 09/06/2018 lancets 30 gauge [facility] PHARMACIST CHOICE LANCETS 05/25/2018 lancing device [facility] SIMPLE DIAGNOSTICS LANCING DEV 05/25/2018 metFORMIN (GLUCOPHAGE) 500 mg tablet Take 1 [...] Procedure Name Priority Date/Time Associated Diagnosis Comments SCREENING MAMMOGRAM BILATERAL W AZ Schedule Routine, Read Routine (OP Routine) 03/19/2020 11:32 AM CDT Encounter for screening for malignant neoplasm of breast, unspecified screening modality documented in this encounter Results * Screening Mammogram Bilateral W Az (03/19/2020 [...] examination has been subjected to R2/CAD analysis. us Freddie Stanley DO IMG MAMMO PROCEDURES Final Resul t documented in this encounter Visit Diagnoses Diagnosis Encounter for screening for malignant neoplasm of breast, unspecified screening modality documented in this encounter Care Teams Hide Examiner Relationship Specialty Start Date End Date Yogi Aguilar MD [address] [facility] [address] [facility] [address] [place] [address] PCP - General 03/19/16 11/02/23 documented as of this encounter
--- OUTSIDE RECORDS SUMMARY | 2024-06-12 07:41 | XMS_ITS | Encounter Summary ---
Author Organization [facility] Healthcare Address [address] [place] [address] Care Team Providers Care Grease Machine Worker Name Role Phone Baldo Bower MD Primary Care Provider [phone] Encounter Details Date Type Department Care Team (Latest Contact Info) Description 11/03/2023 10:42 AM CDT - 11/03/2023 11:59 PM CDT Hospital Encounter 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 Gender Identity Not on file Sexual [...] 05/25/2018 blood-glucose meter (Accu-Chek Guide Glucose Meter) [facility] ACCU-CHEK GUIDE W/DEVICE KIT 05/25/2018 calcium carbonate-vitami n D3 (Calcium 500 + D) 1,250 mg (500 mg elemental)-400 unit chewable tablet CALCIUM + D TABLET 09/06/2018 glucosamine sulfate 500 mg capsule GLUCOSAMINE CAPSULE 09/06/2018 lancets 30 gauge [facility] PHARMACIST CHOICE LANCETS 05/25/2018 lancing device [facility] SIMPLE DIAGNOSTICS LANCING DEV 05/25/2018 lisinopriL (PRINIVIL,ZESTRI [...] Name Priority Date/Time Associated Diagnosis Comments XR SHOULDER RIGHT 2 OR MORE VIEWS Schedule Routine, Read Routine (OP Routine) 11/03/2023 10:50 AM CDT Right shoulder pain, unspecified chronicity documented in [...] PM T: ??11/04/2023 1:53 PM Report ID: [id number] Reading Location: ??[id number] Procedure Note Robert Arroyo MD - 11/04/2023 [...] Robert Arroyo M.D. AT: AT Report ID: [id number] Reading Location: [id number] us Lacy Curiel DO IMG XR PROCEDURES Final Result documented in this encounter Visit Diagnoses Diagnosis Right shoulder pain, unspecified chronicity documented in this encounter Care Teams Grease Machine Worker Relationship Specialty Start Date End Date Baldo Bower MD PCP - General Family Practice 11/03/23 documented as of this encounter
--- OUTSIDE RECORDS SUMMARY | 2024-06-12 07:41 | XMS_ITS | Encounter Summary ---
Author Organization Formerly [facility] Address [address] [place] [address] Care Team Providers Care Bar Host Name Role Phone Yogi Aguilar MD Primary Care Provider [phone] Reason for Referral * Diagnostic Imaging (Routine) - Closed Specialty Diagnoses / Procedures Referred By Contac t Referred To Contact Diagnoses Age related osteoporosis, unspecified pathological fracture presence Procedures Dexa Axial Skeleton Bone Density 1 or 2 Site Freddie Stanley DO Phone: tel: fax: [address] [phone] Referral ID Status Reason Start Date Expiration Date Visits Re quested Visits Authorized [id number] Closed 03/12/2020 04/11/2021 1 1 Reason for Visit * Diagnostic Imaging (Routine) - Closed Specialty Diagnoses / Procedures Referred By Contac t Referred To Contact Diagnoses Age related osteoporosis, unspecified pathological fracture presence Procedures Dexa Axial Skeleton Bone Density 1 or 2 Site Freddie Stanley DO Phone: tel: fax: [address] [phone] Referral ID Status Reason Start Date Expiration Date Visits Re quested Visits Authorized [id number] Closed 03/12/2020 04/11/2021 1 1 Encounter Details Date Type Department Care Team (Latest Contact Info) Description 03/19/2020 11:13 AM CDT - 03/19/2020 11:59 PM CDT Hospital Encounter [facility] Imaging and Radiiology [address] [place] [address] JadenColineDO [address] [place] [address] Age related osteoporosis, unspecified pathological fracture presence Discharge Disposition: Discharge to home or self care Social History Tobacco Use Types Packs/Day Years Used Date Smoking Tobacco: Former Smokeless Tobacco: Never Comments Unknown Sex and Gender Information Value Date Recorded Sex Assigned at Not on file 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 Gender Identity Not on file Sexual Orientation Not on file documented as of this encounter Medications at Time of Discharge blood glucose control high,low (Accu-Chek Guide L1-L2 Ctrl Nadja) solution by intravitreal route 05/25/2018 blood glucose diagnostic (Accu-Chek Guide test strips) strip by intravitreal route 05/25/2018 blood-glucose meter (Accu-Chek Guide Glucose Meter) [facility] ACCU-CHEK GUIDE W/DEVICE KIT 05/25/2018 calcium carbonate-vitami n D3 (Calcium 500 + D) 1,250 mg (500 mg elemental)-400 unit chewable tablet CALCIUM + D TABLET 09/06/2018 glucosamine sulfate 500 mg capsule GLUCOSAMINE CAPSULE 09/06/2018 lancets 30 gauge [facility] PHARMACIST CHOICE LANCETS 05/25/2018 lancing device [facility] SIMPLE DIAGNOSTICS LANCING DEV 05/25/2018 metFORMIN (GLUCOPHAGE) [...] Procedure Name Priority Date/Time Associated Diagnosis Comments DEXA AXIAL SKELETON BONE DENSITY 1 OR MORE SITES Schedule Routine, Read Routine (OP Routine) 03/19/2020 12:14 PM CDT Age related osteoporosis, unspecified pathological fracture presence documented in this encounter Results * Dexa Axial Skeleton Bone Density 1 [...] decrease bone mineral density. Procedure Note Camille Rodriegs MD - 03/19/2020 Examination: Bone densitometry of [...] hip. Electronically signed by: Camille Rodriges M.D. [facility] DXA PROCEDURES Final Result documented in this encounter Visit Diagnoses Diagnosis Age related osteoporosis, unspecified pathological fracture presence documented in this encounter Care Teams Bar Host Relationship Specialty Start Date End Date Yogi Aguilar MD [address] [place] [address] [place] [address] PCP - General 03/19/16 11/02/23 documented as of this encounter
--- OUTSIDE RECORDS SUMMARY | 2024-06-12 07:41 | XMS_ITS | Encounter Summary ---
Author Organization [facility] Healthcare Address [address] [place] [address] Care Team Providers Care Material Movers Name Role Phone Baldo Bower MD Primary Care Provider [phone] Reason for Referral * Diagnostic Imaging (Routine) - Closed Specialty Diagnoses / Procedures Referred By Philipac den Referred To Contact Diagnoses Primary osteoarthritis of right hip Procedures FL Fluoro Guided Injection Hip Right Lacy Curiel DO [facility] [address] [place] [address] Phone: tel: fax: [address] [phone] Referral ID Status Reason Start Date Expiration Date Visits Re quested Visits Authorized [id number] Closed 11/02/2023 12/01/2024 1 1 Reason for Visit * Diagnostic Imaging (Routine) - Closed Specialty Diagnoses / Procedures Referred By Contmeme crenshaw Referred To Contact Diagnoses Primary osteoarthritis of right hip Procedures FL Fluoro Guided Injection Hip Right Lacy Curiel DO [address] [place] [address] [address] [place] [address] Phone: tel: fax: [address] [phone] Referral ID Status Reason Start Date Expiration Date Visits Re quested Visits Authorized [id number] Closed 11/02/2023 12/01/2024 1 1 Encounter Details Date Type Department Care Team (Latest Contact Info) Description 11/10/2023 2:10 PM CDT - 11/10/2023 11:59 PM CDT Hospital Encounter [facility] Diagnostic Imaging 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 Gender Identity Not on file Sexual Orientation [...] 05/25/2018 blood-glucose meter (Accu-Chek Guide Glucose Meter) [facility] ACCU-CHEK GUIDE W/DEVICE KIT 05/25/2018 calcium carbonate-vitami n D3 (Calcium 500 + D) 1,250 mg (500 mg elemental)-400 unit chewable tablet CALCIUM + D TABLET 09/06/2018 glucosamine sulfate 500 mg capsule GLUCOSAMINE CAPSULE 09/06/2018 lancets 30 gauge [facility] PHARMACIST CHOICE LANCETS 05/25/2018 lancing device [facility] SIMPLE DIAGNOSTICS LANCING DEV 05/25/2018 lisinopriL (PRINIVIL,ZESTRI [...] RIGHT Schedule Routine, Read Routine (OP Routine) 11/10/2023 3:20 PM CDT Primary osteoarthritis of right hip documented [...] PM T: ??11/10/2023 4:22 PM Report ID: [id number] Reading Location: ??[id number] Procedure Note Kye Espinosa MD - 11/10/2023 [...] Kye Espinosa M.D. MM: MM Report ID: [id number] Reading Location: [id number] Lacy Curiel DO IMRoxanne FLUOROSCOPY PROCEDURES Fin al Result documented in this encounter Visit Diagnoses Diagnosis Primary osteoarthritis of right hip documented in this encounter Administered Medications Inactive Administered Medications - up to 3 most recent administrations Medication Order MAR Action Action Date Dose Rate Site BUPivacaine (MARCAINE) 0.25 % (2.5 mg/mL) preservative free injection 12.5 mg 12.5 mg (5 mL), intra-articular, Once, On Mojgan 11/10/23 at 1545, For 1 dose Given 11/10/2023 3:15 PM CDT 5 mL iohexoL (OMNIPAQUE) 240 mg iodine/mL injection solution 5 mL 5 mL, intra-articular, Once in imaging, contrast, Starting on Mojgan 11/10/23 at 1511, For 1 dose Contrast Given 11/10/2023 3:15 PM CDT 5 mL lidocaine (PF) (XYLOCAINE) 10 mg/mL (1 %) preservative free injection As needed, Starting on Mojgan 11/10/23 at 1508, Intra-Procedure (IR), Indications: Administration of Local AnesthesiaIndications:Adm inistration of Local Anesthesia Given 11/10/2023 3:08 PM CDT 5 mL Right Anterior Thigh triamcinolone (KENALOG) 40 mg/mL injection 40 mg 40 mg, intra-articular, Once, On Mojgan 11/10/23 at 1545, For 1 dose Given 11/10/2023 3:14 PM CDT 40 mg documented in this encounter Care Teams Material Movers Relationship Specialty Start Date End Date Baldo Bower MD PCP - General Family Practice 11/03/23 documented as of this encounter
--- OUTSIDE RECORDS SUMMARY | 2024-06-12 07:42 | XMS_ITS | Encounter Summary ---
Author Organization [facility] Healthcare Address [address] [place] [address] Care Team Providers Care French Cord Binder Name Role Phone Yogi Aguilar MD Primary Care Provider [phone] Reason for Referral * Diagnostic Imaging (Routine) - Closed Specialty Diagnoses / Procedures Referred By Shari crenshaw Referred To Contact Diagnoses Encounter for screening mammogram for malignant neoplasm of breast Procedures Screening Mammogram Bilateral W Yogi Burns MD Phone: tel: fax: [facility] Referral ID Status Reason Start Date Expiration Date Visits Re quested Visits Authorized [id number] Closed 01/05/2018 07/17/2019 1 1 Reason for Visit * Diagnostic Imaging (Routine) - Closed Specialty Diagnoses / Procedures Referred By Shari crenshaw Referred To Contact Diagnoses Encounter for screening mammogram for malignant neoplasm of breast Procedures Screening Mammogram Bilateral W Yogi Burns MD Phone: tel: fax: [facility] Referral ID Status Reason Start Date Expiration Date Visits Re quested Visits Authorized [id number] Closed 01/05/2018 07/17/2019 1 1 Encounter Details Date Type Department Care Team (Latest Contact Info) Description 01/12/2018 10:47 AM CDT Hospital Encounter [facility] Imaging and Radiology [address] [place] [phone] Yogi Aguilar MD [address] [facility] [address] [place] [address] Encounter for screening mammogram for malignant neoplasm of breast Discharge Disposition: Discharge to home or self care Social History Tobacco Use Types Packs/Day Years Used Date Smoking Tobacco: Former Smokeless Tobacco: Never Comments Unknown Sex and Gender Information Value Date Recorded Sex Assigned at Not on file 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 Gender Identity Not on file Sexual Orientation Not on file documented as of this encounter Medications at Time of Discharge metFORMIN (GLUCOPHAGE) 500 mg tablet Take 1 tablet (500 mg total) by mouth 2 (two) times a day with meals 09/20/2017 atenolol (TENORMIN) 50 mg tablet 03/14/2024 atorvastatin (LIPITOR) 40 mg tablet 11/17/2017 03/14/2024 estradiol (ESTRACE) 1 mg tablet take 1 tablet by oral route every day 0 0 05/13/2015 03/14/2024 lisinopril (PRINIVIL,ZESTRIL ) 20 mg tablet take 1 tablet by oral route every day 0 0 05/13/2015 03/14/2024 lisinopril-hydroC HLOROthiazide (PRINZIDE,ZESTORE TIC) 20-25 mg per tabletIndications :hypertension 03/14/2024 naproxen (NAPROSYN) 500 mg tablet Take 1 tablet (500 mg total) by mouth 2 (two) times a day with meals. 60 tablet 2 11/29/2017 02/13/2018 omeprazole (PriLOSEC) 40 mg capsule 09/20/2017 03/14/2024 simvastatin (ZOCOR) 40 mg tablet 03/14/2024 documented as of this encounter Discharge Disposition Disposition Code Departure Means Destination Discharge to home or self care documented in this encounter Plan of Treatment Not on file documented as of this encounter Procedures Procedure Name Priority Date/Time Associated Diagnosis Comments SCREENING MAMMOGRAM BILATERAL W AZ Schedule Routine, Read Routine (OP Routine) 01/12/2018 11:46 AM CDT Encounter for screening mammogram for malignant neoplasm of breast documented in this encounter Results * Screening Mammogram Bilateral W Az (01/12/2018 11:46 AM CDT) Anatomical Region Laterality Modality Breast Bilateral Mammography 01/12/2018 2:33 PM CDT Impressions 01/12/2018 2:39 PM CDT BIRADS Category 2, benign mammogram. ??Recommend yearly bilateral screening mammogram. Electronically signed by: Shaunna Steve M.D. Narrative 01/12/2018 2:39 PM CDT EXAM: Bilateral digital screening mammogram with digital tomosynthesis DATE: 01/12/2018 1:00 PM CLINICAL HISTORY: Screening in an asymptomatic postmenopausal (post hysterectomy) patient with a family history of breast cancer and a history of left breast cysts TECHNIQUE: Bilateral full field digital mammography and digital tomosynthesis were performed in the CC and MLO projections. Comparison was made to prior bilateral mammograms from 11/04/2016, 11/08/2014, 04/18/2014, 02/08/2013 and 03/22/2011 and prior diagnostic left breast mammograms from 12/01/2016 and 04/22/2014. CAD was utilized. FINDINGS: The breast parenchyma is heterogeneously dense, which limits evaluation for masses. The parenchymal pattern is unchanged compared to the prior exams. ??Scattered breast nodules are unchanged. Scattered bilateral calcifications are again seen and are benign in appearance. ??There is no new discrete nodule or mass, area of architectural distortion or suspicious microcalcification. ??A right breast mole is marked. Yogi Aguilar MD IMG MAMMO PROCEDURES Final Re sult documented in this encounter Visit Diagnoses Diagnosis Encounter for screening mammogram for malignant neoplasm of breast documented in this encounter Care Teams French Cord Binder Relationship Specialty Start Date End Date Yogi Aguilar MD [address] [place] [address] [place] [address] PCP - General 03/19/16 11/02/23 documented as of this encounter
--- OUTSIDE RECORDS SUMMARY | 2024-06-12 07:42 | XMS_ITS | Encounter Summary ---
Author Organization [facility] Healthcare Address [address] [place] [address] Care Team Providers Care Tooth Grinder Name Role Phone Yogi Aguilar MD Primary Care Provider Reason for Referral * Neurology (Routine) - Closed Specialty Diagnoses / Procedures Referred By Shari crenshaw Referred To Contact Diagnoses Convulsions, unspecified convulsion type (HCC) Procedures EEG Freddie Stanley DO Phone: tel: fax: Referral ID Status Reason Start Date Expiration Date Visits Re quested Visits Authorized [id number] Closed 01/11/2019 07/22/2020 1 1 Reason for Visit * Neurology (Routine) - Closed Specialty Diagnoses / Procedures Referred By Shari crenshaw Referred To Contact Diagnoses Convulsions, unspecified convulsion type (HCC) Procedures EEG Freddie Stanley DO Phone: tel: fax: Referral ID Status Reason Start Date Expiration Date Visits Re quested Visits Authorized [id number] Closed 01/11/2019 07/22/2020 1 1 Encounter Details Date Type Department Care Team (Latest Contact Info) Description 01/12/2019 9:01 AM CDT - 01/12/2019 10:18 AM CDT Hospital Encounter [facility] Neurology Testing [address] [place] [address] Freddie Stanley DO [address] [place] [address] Convulsions, unspecified convulsion type (CMS/HCC) Discharge Disposition: Discharge to home or self care Social History Tobacco Use Types Packs/Day Years Used Date Smoking Tobacco: Former Smokeless Tobacco: Never Comments Unknown Sex and Gender Information Value Date Recorded Sex Assigned at Not on file 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 Gender Identity Not on file Sexual Orientation Not on file documented as of this encounter Medications at Time of Discharge blood glucose control high,low (Accu-Chek Guide L1-L2 Ctrl Nadja) solution by intravitreal route 05/25/2018 blood glucose diagnostic (Accu-Chek Guide test strips) strip by intravitreal route 05/25/2018 blood-glucose meter (Accu-Chek Guide Glucose Meter) [facility] [place]U-CHEK GUIDE W/DEVICE KIT 05/25/2018 calcium carbonate-vitami n D3 (Calcium 500 + D) 1,250 mg (500 mg elemental)-400 unit chewable tablet CALCIUM + D TABLET 09/06/2018 glucosamine sulfate 500 mg capsule GLUCOSAMINE CAPSULE 09/06/2018 lancets 30 gauge [facility] PHARMACIST CHOICE LANCETS 05/25/2018 lancing device [facility] SIMPLE DIAGNOSTICS LANCING DEV 05/25/2018 metFORMIN (GLUCOPHAGE) [...] Procedure Name Priority Date/Time Associated Diagnosis Comments EEG Routine 01/12/2019 10:02 AM CDT Convulsions, unspecified convulsion type (CMS/HCC) documented in this encounter Results * EEG (01/12/2019 10:02 AM CDT) Anatomical Region Laterality Modality EEG Narrative 01/15/2019 4:23 PM CDT This EEG was performed for evaluation of seizures. This EEG was recorded during wakefulness using a 16 channel EEG machine utilizing the international 10 20 system of electrode placement with bipolar monopolar montages. ??Hyperventilation was performed. This patient's background electrical activity consists of low-voltage fast activity in the anterior head regions and 9-10 alpha waves of low voltage in the posterior head regions. ??Hyperventilation did not trigger any paroxysmal or epileptiform discharges. ??No focal slowing paroxysmal or epileptiform activity is seen. Impression: ??Normal EEG during wakefulness and hyperventilation. us Freddie Stanley DO NEUROLOGY ORDERABLES Final Resul t documented in this encounter Visit Diagnoses Diagnosis Convulsions, unspecified convulsion type (HCC) documented in this encounter Care Teams Tooth Grinder Relationship Specialty Start Date End Date Yogi Aguilar MD [address] [facility] [address] [place] [address] PCP - General 03/19/16 11/02/23 documented as of this encounter
--- OUTSIDE RECORDS SUMMARY | 2024-06-12 07:42 | XMS_ITS | Encounter Summary ---
Author Organization [facility] Healthcare Address [address] [place] [address] Care Team Providers Care Dictating Machine Transcriber Name Role Phone Yogi Aguilar MD Primary Care Provider [phone] Encounter Details Date Type Department Care Team (Late st Contact Info) Description 12/01/2016 11:54 AM CDT - 12/01/2016 11:59 PM T Hospital Encounter [facility] OP INTERIM [phone] Susana Leung MD PhD [address] [facility] [id number] [place] [address] Discharge Disposition: Discharge to home or self care Social History Tobacco Use Types Packs/Day Years Used Date Smoking Tobacco: Former Comments Unknown Sex and Gender Information Value Date Recorded Sex Assigned at Not on file 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 Gender Identity Not on file Sexual Orientation Not on file documented as of this encounter Medications at Time of Discharge atenolol (TENORMIN) 50 mg tablet take 1 tablet by oral route every day 0 0 05/13/2015 11/29/2017 estradiol (ESTRACE) 1 mg tablet take 1 tablet by oral route every day 0 0 05/13/2015 03/14/2024 lisinopril (PRINIVIL,ZESTRIL ) 20 mg tablet take 1 tablet by oral route every day 0 0 05/13/2015 03/14/2024 simvastatin (ZOCOR) 40 mg tablet take 1 tablet by oral route every day in the evening 0 0 05/13/2015 11/29/2017 documented as of this encounter Discharge Disposition Disposition Code Departure Means Destination Discharge to home or self care documented in this encounter Plan of Treatment Not on file documented as of this encounter Procedures Procedure Name Priority Date/Time Associated Diagnosis Comments MAMMOGRAPHY, TOMOGRAPHY, UNILATERAL Routine 12/01/2016 6:00 PM CDT SCREENING MAMMOGRAM Routine 12/01/2016 6 :00 PM CDT BREAST SONOGRAPHY Routine 12/01/2016 5:5 5 PM CDT documented in this encounter Results * MAMMOGRAPHY, TOMOGRAPHY, UNILATERAL (12/01/2016 6:00 PM CDT) Anatomical Region Laterality Modality Mammography 12/01/2016 6:00 PM CDT Narrative 12/01/2016 6:00 PM CDT KRISTAL DALEY M.D. OSVALDO DONAHUE M.D. FINAL REPORT The radiology attending physician has personally reviewed this study, and has reviewed and/or edited this written report and agrees with it. ACC# ??Date Time ??Exam [id number] Dec 01, 2016 13:00:00 [facility] 13942 Diag Mamm, inc CAD, unilat L ?? Technologist(s): Hawa Joyce; ; [id number] Dec 01, 2016 12:55:00 [facility] 45490 Breast US unilateral, ltd L [id number] Dec 01, 2016 13:00:00 [facility] 68234 DigBreast Az uni L ?? Technologist(s): Hawa Joyce; ; EXAMINATION: ?? LEFT BREAST SONOGRAM AND LEFT BREAST FULL FIELD DIGITAL DIAGNOSTIC MAMMOGRAM WITH TOMOSYNTHESIS HISTORY: 66-year-old female presents for ultrasound evaluation of left breast asymmetry. SONOGRAM FINDINGS: Directed sonogram of the left breast at 2:30, 2 cm from the nipple at the palpable area of concern was performed. No focal abnormal solid or cystic lesion is identified in the reported area of palpable concern. In the left breast at 2:30, 5 cm from the nipple, there is a cluster of microcysts. A mammographic skin marker was placed on the upper outer left breast to correspond with this ultrasound finding. Left breast mammogram will be performed. MAMMOGRAM TECHNIQUE: Full field digital craniocaudal and mediolateral oblique views of the left breast were obtained. COMPARISON: Multiple prior mammograms dating back to 2010. BREAST PARENCHYMAL COMPOSITION: There are scattered areas of fibroglandular density. MAMMOGRAM FINDINGS: A triangular skin marker denotes the area of the sonographic finding in the upper outer left breast, which corresponds with the mammographic asymmetry, stable dating back to exam of 2012. No new suspicious masses, microcalcifications, or areas of architectural distortion are seen in the left breast. IMPRESSION: ?? 1. Benign cluster of microcysts in the left breast at 2:30, 5 cm FN, which corresponds with the mammographic finding, stable dating back to 2012. 2. No sonographic correlate in the left breast at 12:30, 2 cm FN to correspond with the palpable area of concern. OVERALL FINAL ASSESSMENT: ??BI-RADS Category 2: Benign finding. RECOMMENDATION: Follow up bilateral screening mammogram is recommended in October 2017. Requested By: Susana Leung ??, PHD ? Dictated By: ?? OSVALDO DONAHUE M.D. ??on Nov ??2016 ??1:29P This document has been electronically signed by: KRISTAL DALEY M.D. on Nov ?? 2017 ??3:21P [id number] DALEY M.D. OSVALDO DONAHUE M.D. FINAL REPORT The radiology attending physician has personally reviewed this study, and has reviewed and/or edited this written report and agrees with it. Attending: ??XOCHITL, ??SUSANA Requesting: ??Xochitl, ??Susana Requesting Fax: ?? Attending Fax: ?? Attending ID: ??[id number] Requesting ID: ??[id number] Report To 1 ID: ??[id number] ? Report To 1 Name: ??, ?? Report To 1 FAX: ?? NextGen Order #: ?? Procedure Note Miscellaneous, Not In File - 03/19/2017 KRISTAL DALEY M.D. OSVALDO DONAHUE M.D. FINAL REPORT The radiology attending physician has personally reviewed this study, and has reviewed and/or edited this written report and agrees with it. ACC# Date Time Exam [id number] Dec 01, 2016 13:00:00 [facility] 26975 Diag Mamm, inc CAD, unilat L Technologist(s): Hawa Joyce; ; [id number] Dec 01, 2016 12:55:00 [facility] 11105 Breast US unilateral, ltd L [id number] Dec 01, 2016 13:00:00 [facility] 95112 DigBreast Az uni L Technologist(s): Hawa Joyce; ; EXAMINATION: LEFT BREAST SONOGRAM AND LEFT BREAST FULL FIELD DIGITAL DIAGNOSTIC MAMMOGRAM WITH TOMOSYNTHESIS HISTORY: 66-year-old female presents for ultrasound evaluation of left breast asymmetry. SONOGRAM FINDINGS: Directed sonogram of the left breast at 2:30, 2 cm from the nipple at the palpable area of concern was performed. No focal abnormal solid or cystic lesion is identified in the reported area of palpable concern. In the left breast at 2:30, 5 cm from the nipple, there is a cluster of microcysts. A mammographic skin marker was placed on the upper outer left breast to correspond with this ultrasound finding. Left breast mammogram will be performed. MAMMOGRAM TECHNIQUE: Full field digital craniocaudal and mediolateral oblique views of the left breast were obtained. COMPARISON: Multiple prior mammograms dating back to 2010. BREAST PARENCHYMAL COMPOSITION: There are scattered areas of fibroglandular density. MAMMOGRAM FINDINGS: A triangular skin marker denotes the area of the sonographic finding in the upper outer left breast, which corresponds with the mammographic asymmetry, stable dating back to exam of 2012. No new suspicious masses, microcalcifications, or areas of architectural distortion are seen in the left breast. IMPRESSION: 1. Benign cluster of microcysts in the left breast at 2:30, 5 cm FN, which corresponds with the mammographic finding, stable dating back to 2012. 2. No sonographic correlate in the left breast at 12:30, 2 cm FN to correspond with the palpable area of concern. OVERALL FINAL ASSESSMENT: BI-RADS Category 2: Benign finding. RECOMMENDATION: Follow up bilateral screening mammogram is recommended in October 2017. Requested By: Susana Leung MD, PHD Dictated By: OSVALDO DONAHUE M.D. on Dec 01 2016 1:29P This document has been electronically signed by: KRISTAL DALEY M.D. on Dec 01 2016 3:21P [id number] DALEY M.D. OSVALDO DONAHUE M.D. FINAL REPORT The radiology attending physician has personally reviewed this study, and has reviewed and/or edited this written report and agrees with it. Attending: SUSANA LEUNG Requesting: Susana Leung Requesting Fax: Attending Fax: Attending ID: [id number] Requesting ID: [id number] Report To 1 ID: [id number] Report To 1 Name: , Report To 1 FAX: NextGen Order #: Result [facility] Susana Leung MD PhD IMG MAMMO PROCEDURES Edited Result - Final * Screening Mammogram (12/01/2016 6:00 PM CDT) Anatomical Region Laterality Modality Breast N/A Mammography 12/01/2016 6:00 PM CDT Narrative 12/01/2016 6:00 PM CDT KRISTAL DALEY M.D. OSVALDO DONAHUE M.D. FINAL REPORT The radiology attending physician has personally reviewed this study, and has reviewed and/or edited this written report and agrees with it. ACC# ??Date Time ??Exam [id number] Dec 01, 2016 13:00:00 [facility] 20[address] Diag Mamm, inc CAD, unilat L ?? Technologist(s): Hawa Joyce; ; [id number] Dec 01, 2016 12:55:00 [facility] 01586 Breast US unilateral, ltd L [id number] Dec 01, 2016 13:00:00 [facility] 44148 DigBreast Az uni L ?? Technologist(s): Hawa Joyce; ; EXAMINATION: ?? LEFT BREAST SONOGRAM AND LEFT BREAST FULL FIELD DIGITAL DIAGNOSTIC MAMMOGRAM WITH TOMOSYNTHESIS HISTORY: 66-year-old female presents for ultrasound evaluation of left breast asymmetry. SONOGRAM FINDINGS: Directed sonogram of the left breast at 2:30, 2 cm from the nipple at the palpable area of concern was performed. No focal abnormal solid or cystic lesion is identified in the reported area of palpable concern. In the left breast at 2:30, 5 cm from the nipple, there is a cluster of microcysts. A mammographic skin marker was placed on the upper outer left breast to correspond with this ultrasound finding. Left breast mammogram will be performed. MAMMOGRAM TECHNIQUE: Full field digital craniocaudal and mediolateral oblique views of the left breast were obtained. COMPARISON: Multiple prior mammograms dating back to 2010. BREAST PARENCHYMAL COMPOSITION: There are scattered areas of fibroglandular density. MAMMOGRAM FINDINGS: A triangular skin marker denotes the area of the sonographic finding in the upper outer left breast, which corresponds with the mammographic asymmetry, stable dating back to exam of 2012. No new suspicious masses, microcalcifications, or areas of architectural distortion are seen in the left breast. IMPRESSION: ?? 1. Benign cluster of microcysts in the left breast at 2:30, 5 cm FN, which corresponds with the mammographic finding, stable dating back to 2012. 2. No sonographic correlate in the left breast at 12:30, 2 cm FN to correspond with the palpable area of concern. OVERALL FINAL ASSESSMENT: ??BI-RADS Category 2: Benign finding. RECOMMENDATION: Follow up bilateral screening mammogram is recommended in October 2017. Requested By: Susana Leung ??, PHD ? Dictated By: ?? OSVALDO DONAHUE M.D. ??on Nov ??2016 ??1:29P This document has been electronically signed by: KRISTAL DALEY M.D. on Nov ??2016 ??3:21P KRISTAL DALEY M.D. OSVALDO DONAHUE M.D. FINAL REPORT The radiology attending physician has personally reviewed this study, and has reviewed and/or edited this written report and agrees with it. Attending: ??XOCHITL, ??SUSANA Requesting: ??Xochitl, ??Susana Requesting Fax: ?? Attending Fax: ?? Attending ID: ??[id number] Requesting ID: ??[id number] Report To 1 ID: ??[id number] ? Report To 1 Name: ??, ?? Report To 1 FAX: ?? NextGen Order #: ?? Procedure Note Miscellaneous, Not In File - 03/19/2017 KRISTAL DALEY M.D. OSVALDO DONAHUE M.D. FINAL REPORT The radiology attending physician has personally reviewed this study, and has reviewed and/or edited this written report and agrees with it. ACC# Date Time Exam [id number] Dec 01, 2016 13:00:00 [facility] 27080 Diag Mamm, inc CAD, unilat L Technologist(s): Hawa Joyce; ; [id number] Dec 01, 2016 12:55:00 [facility] 45010 Breast US unilateral, ltd L [id number] Dec 01, 2016 13:00:00 [facility] 62758 DigBreast Az uni L Technologist(s): Hawa Joyce; ; EXAMINATION: LEFT BREAST SONOGRAM AND LEFT BREAST FULL FIELD DIGITAL DIAGNOSTIC MAMMOGRAM WITH TOMOSYNTHESIS HISTORY: 66-year-old female presents for ultrasound evaluation of left breast asymmetry. SONOGRAM FINDINGS: Directed sonogram of the left breast at 2:30, 2 cm from the nipple at the palpable area of concern was performed. No focal abnormal solid or cystic lesion is identified in the reported area of palpable concern. In the left breast at 2:30, 5 cm from the nipple, there is a cluster of microcysts. A mammographic skin marker was placed on the upper outer left breast to correspond with this ultrasound finding. Left breast mammogram will be performed. MAMMOGRAM TECHNIQUE: Full field digital craniocaudal and mediolateral oblique views of the left breast were obtained. COMPARISON: Multiple prior mammograms dating back to 2010. BREAST PARENCHYMAL COMPOSITION: There are scattered areas of fibroglandular density. MAMMOGRAM FINDINGS: A triangular skin marker denotes the area of the sonographic finding in the upper outer left breast, which corresponds with the mammographic asymmetry, stable dating back to exam of 2012. No new suspicious masses, microcalcifications, or areas of architectural distortion are seen in the left breast. IMPRESSION: 1. Benign cluster of microcysts in the left breast at 2:30, 5 cm FN, which corresponds with the mammographic finding, stable dating back to 2012. 2. No sonographic correlate in the left breast at 12:30, 2 cm FN to correspond with the palpable area of concern. OVERALL FINAL ASSESSMENT: BI-RADS Category 2: Benign finding. RECOMMENDATION: Follow up bilateral screening mammogram is recommended in October 2017. Requested By: Susana Leung MD, PHD Dictated By: OSVALDO DONAHUE M.D. on Dec 01 2016 1:29P This document has been electronically signed by: KRISTAL DALEY M.D. on Dec 01 2016 3:21P Missy MORALES M.D. FINAL REPORT The radiology attending physician has personally reviewed this study, and has reviewed and/or edited this written report and agrees with it. Attending: SUSANA LEUNG Requesting: Susana Leung Requesting Fax: Attending Fax: Attending ID: [id number] Requesting ID: [id number] Report To 1 ID: [id number] Report To 1 Name: , Report To 1 FAX: NextGen Order #: us Susana Leung MD PhD IMG MAMMO PROCEDURES Edited Result - Final * BREAST SONOGRAPHY (12/01/2016 5:55 PM CDT) Anatomical Region Laterality Modality Ultrasound 12/01/2016 5:55 PM CDT Narrative 12/01/2016 5:55 PM CDT Missy MORALES M.D. FINAL REPORT The radiology attending physician has personally reviewed this study, and has reviewed and/or edited this written report and agrees with it. ACC# ??Date Time ??Exam [id number] Dec 01, 2016 13:00:00 [facility] 71531 Diag Mamm, inc CAD, unilat L ?? Technologist(s): Hawa Joyce; ; [id number] Dec 01, 2016 12:55:00 [facility] 50465 Breast US unilateral, ltd L [id number] Dec 01, 2016 13:00:00 [facility] 19432 DigBreast Az uni L ?? Technologist(s): Hawa Joyce; ; EXAMINATION: ?? LEFT BREAST SONOGRAM AND LEFT BREAST FULL FIELD DIGITAL DIAGNOSTIC MAMMOGRAM WITH TOMOSYNTHESIS HISTORY: 66-year-old female presents for ultrasound evaluation of left breast asymmetry. SONOGRAM FINDINGS: Directed sonogram of the left breast at 2:30, 2 cm from the nipple at the palpable area of concern was performed. No focal abnormal solid or cystic lesion is identified in the reported area of palpable concern. In the left breast at 2:30, 5 cm from the nipple, there is a cluster of microcysts. A mammographic skin marker was placed on the upper outer left breast to correspond with this ultrasound finding. Left breast mammogram will be performed. MAMMOGRAM TECHNIQUE: Full field digital craniocaudal and mediolateral oblique views of the left breast were obtained. COMPARISON: Multiple prior mammograms dating back to 2010. BREAST PARENCHYMAL COMPOSITION: There are scattered areas of fibroglandular density. MAMMOGRAM FINDINGS: A triangular skin marker denotes the area of the sonographic finding in the upper outer left breast, which corresponds with the mammographic asymmetry, stable dating back to exam of 2012. No new suspicious masses, microcalcifications, or areas of architectural distortion are seen in the left breast. IMPRESSION: ?? 1. Benign cluster of microcysts in the left breast at 2:30, 5 cm FN, which corresponds with the mammographic finding, stable dating back to 2012. 2. No sonographic correlate in the left breast at 12:30, 2 cm FN to correspond with the palpable area of concern. OVERALL FINAL ASSESSMENT: ??BI-RADS Category 2: Benign finding. RECOMMENDATION: Follow up bilateral screening mammogram is recommended in October 2017. Requested By: Susana Leung ??, PHD ? Dictated By: ?? OSVALDO DONAHUE M.D. ??on Nov ??2016 ??1:29P This document has been electronically signed by: KRISTAL DALEY M.D. on Nov ??2016 ??3:21P [id number] DALEY M.D. OSVALDO DONAHUE M.D. FINAL REPORT The radiology attending physician has personally reviewed this study, and has reviewed and/or edited this written report and agrees with it. Attending: ??XOCHITL, ??SUSANA Requesting: ??Xochitl, ??Susana Requesting Fax: ?? Attending Fax: ?? Attending ID: ??[id number] Requesting ID: ??[id number] Report To 1 ID: ??[id number] ? Report To 1 Name: ??, ?? Report To 1 FAX: ?? NextGen Order #: ?? Procedure Note Miscellaneous, Not In File - 03/19/2017 KRISTAL DALEY M.D. OSVALDO DONAHUE M.D. FINAL REPORT The radiology attending physician has personally reviewed this study, and has reviewed and/or edited this written report and agrees with it. ACC# Date Time Exam [id number] Dec 01, 2016 13:00:00 [facility] 545[address] Diag Mamm, inc CAD, unilat L Technologist(s): Hawa Joyce; ; [id number] Dec 01, 2016 12:55:00 [facility] 46915 Breast US unilateral, ltd L [id number] Dec 01, 2016 13:00:00 [facility] 17771 DigBreast Az uni L Technologist(s): Hawa Joyce; ; EXAMINATION: LEFT BREAST SONOGRAM AND LEFT BREAST FULL FIELD DIGITAL DIAGNOSTIC MAMMOGRAM WITH TOMOSYNTHESIS HISTORY: 66-year-old female presents for ultrasound evaluation of left breast asymmetry. SONOGRAM FINDINGS: Directed sonogram of the left breast at 2:30, 2 cm from the nipple at the palpable area of concern was performed. No focal abnormal solid or cystic lesion is identified in the reported area of palpable concern. In the left breast at 2:30, 5 cm from the nipple, there is a cluster of microcysts. A mammographic skin marker was placed on the upper outer left breast to correspond with this ultrasound finding. Left breast mammogram will be performed. MAMMOGRAM TECHNIQUE: Full field digital craniocaudal and mediolateral oblique views of the left breast were obtained. COMPARISON: Multiple prior mammograms dating back to 2010. BREAST PARENCHYMAL COMPOSITION: There are scattered areas of fibroglandular density. MAMMOGRAM FINDINGS: A triangular skin marker denotes the area of the sonographic finding in the upper outer left breast, which corresponds with the mammographic asymmetry, stable dating back to exam of 2012. No new suspicious masses, microcalcifications, or areas of architectural distortion are seen in the left breast. IMPRESSION: 1. Benign cluster of microcysts in the left breast at 2:30, 5 cm FN, which corresponds with the mammographic finding, stable dating back to 2013. 2. No sonographic correlate in the left breast at 12:30, 2 cm FN to correspond with the palpable area of concern. OVERALL FINAL ASSESSMENT: BI-RADS Category 2: Benign finding. RECOMMENDATION: Follow up bilateral screening mammogram is recommended in October 2017. Requested By: Susana Leung MD, PHD Dictated By: OSVALDO DONAHUE M.D. on Dec 01 2016 1:29P This document has been electronically signed by: KRISTAL DALEY M.D. on Dec 01 2016 3:21P [id number] GUERRA M.D. FINAL REPORT The radiology attending physician has personally reviewed this study, and has reviewed and/or edited this written report and agrees with it. Attending: SUSANA LEUNG Requesting: Susana Leung Requesting Fax: Attending Fax: Attending ID: [id number] Requesting ID: [id number] Report To 1 ID: [id number] Report To 1 Name: , Report To 1 [facility]X: [facility] #: Result [facility] Susana Leung MD PhD [facility] IN OCEDURES Edited Result - Final documented in this encounter Visit Diagnoses Not on filedocumented in this encounter Care Teams Dictating Machine Transcriber Relationship Specialty Start Date End Date Yogi Aguilar MD [address] [facility] [address] [place] [id number] PCP - General 03/19/16 11/02/23 documented as of this encounter
--- OUTSIDE RECORDS SUMMARY | 2024-06-12 07:42 | XMS_ITS | Encounter Summary ---
Author Organization [facility] Address [address] [place] [address] Care Team Providers Care Avionic Technician Name Role Phone Yogi Aguilar MD Primary Care Provider [phone] Reason for Visit * Diagnostic Imaging (Routine) - Closed Specialty Diagnoses / Procedures Referred By Shari crenshaw Referred To Contact Diagnoses Bilateral hip pain Procedures XR Spine Lumbar 2 or 3 Views Dmitri Crespo MD Phone: tel: Referral ID Status Reason Start Date Expiration Date Visits Re quested Visits Authorized [id number] Closed 11/29/2017 06/10/2019 1 1 Encounter Details Date Type Department Care Team (Latest Contact Info) Description 11/29/2017 10:34 AM CDT - 11/29/2017 11:59 PM CDT Hospital Encounter [facility] Medical [facility] [address] [place] [address] [place] [id number] Discharge Disposition: Discharge to home or self care Social History Tobacco Use Types Packs/Day Years Used Date Smoking Tobacco: Former Smokeless Tobacco: Never Comments Unknown Sex and Gender Information Value Date Recorded Sex Assigned at Not on file 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 Gender Identity Not on file Sexual Orientation [...] Name Priority Date/Time Associated Diagnosis Comments XR SPINE LUMBAR 2 OR 3 VIEWS Schedule Routine, Read Routine (OP Routine) 11/29/2017 10:34 AM CDT Bilateral hip pain documented in this encounter Results * XR Spine Lumbar 2 or 3 Views (11/29/2017 10:34 AM CDT) Anatomical Region Laterality Modality Spine N/A Digital Radiogra phy Narrative 11/29/2017 12:48 PM CDT 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
--- OUTSIDE RECORDS SUMMARY | 2024-06-12 07:42 | XMS_ITS | Encounter Summary ---
Author Organization [facility] Healthcare Address [address] [place] [address] Care Team Providers Care Automation Tester Name Role Phone Unavailable Primary Care Provider Unavailabl e Encounter Details Date Type Department Care Team (Late st Contact Info) Description 04/16/2015 9:57 AM ELECTRONIC NEWS GATHERING CAMERA PERSON - 04/16/2015 11:59 PM ELECTRONIC NEWS GATHERING CAMERA PERSON Hospital Encounter [place] [address] [facility] [address] [place] [address] Other abnormal and inconclusive findings on diagnostic imaging of breast Social History Tobacco Use Types Packs/Day Years Used Date Smoking Tobacco: Never Assessed Comments Unknown Sex and Gender Information Value Date Recorded Sex Assigned at Not on file Legal Sex Female 1:32 PM ELECTRONIC NEWS GATHERING CAMERA PERSON Gender Identity Not on file Sexual Orientation Not on file documented as of this encounter Plan of Treatment Not on file documented as of this encounter Procedures Procedure Name Priority Date/Time Associated Diagnosis Comments US BREAST LIMITED Routine 04/16/2015 11: 24 AM ELECTRONIC NEWS GATHERING CAMERA PERSON documented in this encounter Results * US Breast Limited (04/16/2015 11:24 AM ELECTRONIC NEWS GATHERING CAMERA PERSON) Anatomical Region Laterality Modality Breast N/A Ultrasound 04/16/2015 11:2 4 AM ELECTRONIC NEWS GATHERING CAMERA PERSON Narrative 04/17/2015 4:46 AM ELECTRONIC NEWS GATHERING CAMERA PERSON DATE OF EXAM: ??Apr 16 2015 11:24AM Acc#: ??[id number] ??WUS [id number] - US Breast Complete R ?? DIAGNOSIS: ??OTH ABN AND INCONCLUSIVE FINDINGS ON DX CLINICAL HISTORY: ?? ABNORMAL FINDINGS RESULT: \ RIGHT BREAST ULTRASOUND COMPLETE Correlation is made with 11/08/14 right breast ultrasound exam and 11/08/14 diagnostic mammographic exam with tomosynthesis and CAD were utilized for comparison. At the right breast 2 o'clock periareolar region, there is a 0.8 cm x 0.5 cm x 0.4 cm tall well demarcated hypoechoic structure is present. This is similar in size compared to previous exam concerning slight differences in measurement technique. Right axillary lymph node is identified to measure up to 0.7 cm x 0.3 cm in diameter and has a uniform, normal cortical thickness. IMPRESSION: ?\ RIGHT BREAST HYPOECHOIC WELL DEMARCATED NODULAR STRUCTURE IS AGAIN IDENTIFIED. NO SIGNIFICANT CHANGES IN SIZE ARE SUGGESTED CONSIDERING DIFFERENCES IN MEASUREMENT TECHNIQUE. CONTINUED SIX-MONTH FOLLOW-UP BY ULTRASOUND EXAM RECOMMENDED TO ASSESS STABILITY. ??THIS MAY BE PERFORMED AT TIME OF ANNUAL SCREENING. ? HUMAN RESOURCE MANAGEMENT INSTRUCTOR: ??DM2 TRANSCRIBE DATE/TIME: ??Apr 16 2015 ??6:33P RADIOLOGIST: ??HARISH SUMMERS M.D. ??READ ON: ??Apr 16 2015 ??6:27P ORDERING DR: ZAHEER ALVARADO M.D. ? THIS DOCUMENT HAS BEEN ELECTRONICALLY SIGNED BY: ??HARISH SUMMERS M.D. ??ON: ??Apr 17 2015 ??4:46A Attending: ??CHRISTIANO, ??ZAHEER Requesting: ??CHRISTIANO, ??ZAHEER Requesting Fax: ??[phone] Attending Fax: ??[phone] Attending ID: ??[id number] Requesting ID: ??[id number] Report To 1 ID: ?? Report To 1 Name: ??, ?? Report To 1 FAX: ??-- Report To 2 ID: ?? Report To 2 Name: ??, ?? Report To 2 FAX: ??-- NextGen Order #: ?? Procedure Note Provider, MD Lynne - 09/27/2016 DATE OF EXAM: Apr 16 2015 11:24AM Acc#: [id number] [facility] 0081 - US Breast Complete R DIAGNOSIS: OTH ABN AND INCONCLUSIVE FINDINGS ON DX CLINICAL HISTORY: ABNORMAL FINDINGS RESULT: \ RIGHT BREAST ULTRASOUND COMPLETE Correlation is made with 11/08/14 right breast ultrasound exam and 11/08/14 diagnostic mammographic exam with tomosynthesis and CAD were utilized for comparison. At the right breast 2 o'clock periareolar region, there is a 0.8 cm x 0.5 cm x 0.4 cm tall well demarcated hypoechoic structure is present. This is similar in size compared to previous exam concerning slight differences in measurement technique. Right axillary lymph node is identified to measure up to 0.7 cm x 0.3 cm in diameter and has a uniform, normal cortical thickness. IMPRESSION: \ RIGHT BREAST HYPOECHOIC WELL DEMARCATED NODULAR STRUCTURE IS AGAIN IDENTIFIED. NO SIGNIFICANT CHANGES IN SIZE ARE SUGGESTED CONSIDERING DIFFERENCES IN MEASUREMENT TECHNIQUE. CONTINUED SIX-MONTH FOLLOW-UP BY ULTRASOUND EXAM RECOMMENDED TO ASSESS STABILITY. THIS MAY BE PERFORMED AT TIME OF ANNUAL SCREENING. HUMAN RESOURCE MANAGEMENT INSTRUCTOR: RONAL TRANSCRIBE DATE/TIME: Apr 16 2015 6:33P RADIOLOGIST: HARISH SUMMERS M.D. READ ON: Apr 16 2015 6:27P ORDERING DR: ZAHEER ALVARADO M.D. THIS DOCUMENT HAS BEEN ELECTRONICALLY SIGNED BY: HARISH SUMMERS M.D. ON: Apr 17 2015 4:46A Attending: ZAHEER ALVARADO Requesting: ZAHEER ALVARADO Requesting Attending Attending ID: [id number] Requesting ID: [id number] Report To 1 ID: Report To 1 Name: , Report To 1 FAX: -- Report To 2 ID: Report To 2 Name: , Report To 2 FAX: -- NextGen Order #: us Historical Provider MD BORJA US PROCEDURES Final R esult documented in this encounter Visit Diagnoses Diagnosis Other abnormal and inconclusive findings on diagnostic imaging of breast documented in this encounter
--- OUTSIDE RECORDS SUMMARY | 2024-06-12 07:42 | XMS_ITS | Encounter Summary ---
Author Organization [facility] Address [address] [place] [address] Care Team Providers Care Vendor Specialist Name Role Phone Yogi Aguilar MD Primary Care Provider [phone] Reason for Referral * Diagnostic Imaging (Routine) - Closed Specialty Diagnoses / Procedures Referred By Shari t Referred To Contact Radiology Diagnoses Convulsions, unspecified convulsion type (HCC) Procedures CT Head W WO Contrast Freddie Stanley DO Phone: tel: fax: [address] [phone] Referral ID Status Reason Start Date Expiration Date Visits Re quested Visits Authorized [id number] Closed 01/11/2019 07/22/2020 1 1 Reason for Visit * Diagnostic Imaging (Routine) - Closed Specialty Diagnoses / Procedures Referred By Contmeme crenshaw Referred To Contact Radiology Diagnoses Convulsions, unspecified convulsion type (HCC) Procedures CT Head W WO Contrast Freddie Stanley DO Phone: tel: fax: [address] [phone] Referral ID Status Reason Start Date Expiration Date Visits Re quested Visits Authorized [id number] Closed 01/11/2019 07/22/2020 1 1 Encounter Details Date Type Department Care Team (Latest Contact Info) Description 01/12/2019 10:19 AM CDT - 01/12/2019 11:59 PM CDT Hospital Encounter [facility] Imaging and Radiology [id number] [id number] JadenFreddie DO [address] [address] Convulsions, unspecified convulsion type (CMS/HCC) Discharge Disposition: Discharge to home or self care Social History Tobacco Use Types Packs/Day Years Used Date Smoking Tobacco: Former Smokeless Tobacco: Never Comments Unknown Sex and Gender Information Value Date Recorded Sex Assigned at Not on file Legal Sex Female 1:32 PM MACHINE CELL TUBER Gender Identity Not on file Sexual Orientation Not on file documented as of this encounter Medications at Time of Discharge blood glucose control high,low (Accu-Chek Guide L1-L2 Ctrl Nadja) solution by intravitreal route 05/25/2018 blood glucose diagnostic (Accu-Chek Guide test strips) strip by intravitreal route 05/25/2018 blood-glucose meter (Accu-Chek Guide Glucose Meter) [facility] [place] ACCU-CHEK GUIDE W/DEVICE KIT 05/25/2018 calcium carbonate-vitami n D3 (Calcium 500 + D) 1,250 mg (500 mg elemental)-400 unit chewable tablet CALCIUM + D TABLET 09/06/2018 glucosamine sulfate 500 mg capsule GLUCOSAMINE CAPSULE 09/06/2018 lancets 30 gauge [facility] [place] [place] PHARMACIST CHOICE LANCETS 05/25/2018 lancing device [facility] [place] [place] SIMPLE DIAGNOSTICS LANCING DEV 05/25/2018 metFORMIN (GLUCOPHAGE) [...] Procedure Name Priority Date/Time Associated Diagnosis Comments CT HEAD W WO CONTRAST Schedule Routine, Read Routine (OP Routine) 01/12/2019 12:25 PM CDT Convulsions, unspecified convulsion type (CMS/HCC) documented in this encounter Results * CT Head W WO Contrast (01/12/2019 12:25 PM CDT) Anatomical Region Laterality Modality Head and Neck N/A Computed Tomogra phy 01/12/2019 12:3 6 PM CDT Impressions 01/12/2019 12:37 PM CDT Mild involutional changes. ??No bleed or mass identified. Electronically signed by: Neelima Fuentes M.D. Narrative 01/12/2019 12:37 PM CDT RESULT: HISTORY: The patient is a 68-year-old female who presents with convulsions. TECHNIQUE: Axial images were obtained through the brain both before and after the intravenous administration of 48 mL of Visipaque 320. ??Images also reviewed at bone window settings. FINDINGS: The 4th, 3rd and lateral ventricles are midline in position. ??There is mild prominence of the 3rd and lateral ventricles. ??Cerebral sulci are not prominent. ??Periventricular hypodensities are noted in centrum semiovale are consistent with small vessel deep white matter atherosclerotic disease. ??No intracerebral hemorrhage or extra-axial fluid collection. ??Images obtained at bone window settings reveal the cranial vault to be intact. ??Mastoid air cells and paranasal sinuses are normally aerated. Following the administration of intravenous contrast media there is no abnormal enhancement of the brain parenchyma. Procedure Note Neelima Fuentes MD - 01/12/2019 RESULT: HISTORY: The patient is a 68-year-old female who presents with convulsions. TECHNIQUE: Axial images were obtained through the brain both before and after the intravenous administration of 48 mL of Visipaque 320. Images also reviewed at bone window settings. FINDINGS: The 4th, 3rd and lateral ventricles are midline in position. There is mild prominence of the 3rd and lateral ventricles. Cerebral sulci are not prominent. Periventricular hypodensities are noted in centrum semiovale are consistent with small vessel deep white matter atherosclerotic disease. No intracerebral hemorrhage or extra-axial fluid collection. Images obtained at bone window settings reveal the cranial vault to be intact. Mastoid air cells and paranasal sinuses are normally aerated. Following the administration of intravenous contrast media there is no abnormal enhancement of the brain parenchyma. IMPRESSION: Mild involutional changes. No bleed or mass identified. Electronically signed by: Neelima Fuentes M.D. Freddie Stanley DO [facility] [place]EDURES Final Result documented in this encounter Visit Diagnoses Diagnosis Convulsions, unspecified convulsion type (HCC) documented in this encounter Administered Medications Inactive Administered Medications - up to 3 most recent administrations Medication Order MAR Action Action Date Dose Rate Site iodixanol (VISIPAQUE) 320 mg iodine/mL injection 50 mL 50 mL, intravenous, Once in imaging, contrast, Starting on Tue01/12/19 at 1222, For 1 dose Given 01/12/2019 12:24 PM CDT 48 mL documented in this encounter Orders Medications Ordered That Srikanth ht Not Have Been Administered Count Last Ordered Date First Ordered Date ioversol (OPTIRAY 350) syrin ge syringe 100 mL 1 01/12/2019 documented in this encounter Care Teams Vendor Specialist Relationship Specialty Start Date End Date Yogi Aguilar MD [address] [facility] [address] [place] [address] PCP - General 03/19/16 11/02/23 documented as of this encounter
--- OUTSIDE RECORDS SUMMARY | 2024-06-12 07:42 | XMS_ITS | Encounter Summary ---
Author Organization [facility] Healthcare Address [address] [place] [address] Care Team Providers Care Wax Machine Operator Name Role Phone Yogi Aguilar MD Primary Care Provider [phone] Encounter Details Date Type Department Care Team (Late st Contact Info) Description 11/04/2016 12:47 PM CDT - 11/04/2016 11:59 PM CDT Hospital Encounter [facility] Rosetta Villalta MD [address] [place] [address] Evita Valencia, JHONNY [address] [address] [address] Discharge Disposition: Discharge to home or self care Social History Tobacco Use Types Packs/Day Years Used Date Smoking Tobacco: Never Assessed Comments Unknown Sex and Gender Information Value Date Recorded Sex Assigned at Not on file Legal Sex Female 1:32 PM BALER Gender Identity Not on file Sexual Orientation [...] Procedure Name Priority Date/Time Associated Diagnosis Comments BREAST SONOGRAPHY, BILATERAL Routine 11/04/2016 9:06 PM CDT DIAGNOSTIC MAMMOGRAM BILATERAL W AZ Routine 11/04/2016 7:35 PM CDT documented in this encounter Results * BREAST SONOGRAPHY, BILATERAL (11/04/2016 9:06 PM CDT) Anatomical Region Laterality Modality Breast Bilateral Ultrasound 11/04/2016 9:06 PM CDT Narrative 11/04/2016 9:06 PM CDT DATE OF EXAM: ??Varun ??2016 ??4:06PM Acc#: ??[id number] ??WUS 0084 - US Breast Limited BI ?? DIAGNOSIS: ??ENCNTR SCREEN MAMMOGRAM FOR MALIGNANT NE CLINICAL HISTORY: ?? RT BREAST PERIAREOLAR, 2:00, 7 MM NODULE. LT BREAST PALPABLE LESION . F/U MAMMS RESULT: Exam: ??Limited ultrasound bilateral breasts Date: 11/04/2016 4:06 PM Clinical History: ?? Follow-up of hypoechoic lesion in the right breast and evaluation of a palpable lesion in the left breast. Comparison: Right breast ultrasound from 04/16/2015. ??Mammogram from 11/04/2016. Right breast ultrasound: Limited ultrasound was performed of the right breast because a previous right breast ultrasound from 04/16/2015 showed a hypoechoic lesion at 2:00 in the periareolar region and follow-up was recommended at that time. ??The current study redemonstrates the 5 mm hypoechoic lesion which is unchanged. Left breast ultrasound: Limited ultrasound was performed of the left breast at the site of the patient's palpable abnormality. ??There is a cluster of small cysts at 2:30, 4 cm from the nipple which corresponds to the patient's palpable abnormality. ??This measures 7.9 x 4.4 x 10.6 mm. There is mild blood flow in the periphery of the lesion but no blood flow within the lesion itself. ??Ultrasound of the left axilla shows a normal appearing lymph node. IMPRESSION: 1. ??BI-RADS Category 3, probably benign. 2. ??Recommend 6 month ultrasound follow-up of the small cluster of cysts in the left breast. 3. ??Annual screening mammogram of the right breast is recommended. 4. ??The findings were discussed with the patient. Electronically signed by: Amador Menezes M.D. ? FRUIT DRYER: ??PSC TRANSCRIBE DATE/TIME: ??Oct ??2016 ??5:07P RADIOLOGIST: ??AMADOR MENEZES M.D. ??READ ON: ??Oct ??2016 ??5:11P ORDERING DR: EVITA VALENCIA M.D. ? THIS DOCUMENT HAS BEEN ELECTRONICALLY SIGNED BY: ??RIRI Louis, AMADOR ??ON: ??Oct ??2016 ??5:07P Attending: ??DERIK, ??EVITA Requesting: ??DERIK, ??EVITA Requesting Fax: ??[phone] Attending Fax: ??[phone] Attending ID: ??[id number] Requesting ID: ??[id number] Report To 1 ID: ?? Report To 1 Name: ??, ?? Report To 1 FAX: ??-- Report To 2 ID: ?? Report To 2 Name: ??, ?? Report To 2 FAX: ??-- NextGen Order #: ?? Procedure Note Miscellaneous, Not In File / Provider, MD Lynne - 11/04/2016 DATE OF EXAM: Nov 04 2016 4:06PM Acc#: [id number] [facility] 0084 - US Breast Limited BI DIAGNOSIS: ENCNTR SCREEN MAMMOGRAM FOR MALIGNANT NE CLINICAL HISTORY: RT BREAST PERIAREOLAR, 2:00, 7 MM NODULE. LT BREAST PALPABLE LESION . F/U MAMMS RESULT: Exam: Limited ultrasound bilateral breasts Date: 11/04/2016 4:06 PM Clinical History: Follow-up of hypoechoic lesion in the right breast and evaluation of a palpable lesion in the left breast. Comparison: Right breast ultrasound from 04/16/2015. Mammogram from 11/04/2016. Right breast ultrasound: Limited ultrasound was performed of the right breast because a previous right breast ultrasound from 04/16/2015 showed a hypoechoic lesion at 2:00 in the periareolar region and follow-up was recommended at that time. The current study redemonstrates the 5 mm hypoechoic lesion which is unchanged. Left breast ultrasound: Limited ultrasound was performed of the left breast at the site of the patient's palpable abnormality. There is a cluster of small cysts at 2:30, 4 cm from the nipple which corresponds to the patient's palpable abnormality. This measures 7.9 x 4.4 x 10.6 mm. There is mild blood flow in the periphery of the lesion but no blood flow within the lesion itself. Ultrasound of the left axilla shows a normal appearing lymph node. IMPRESSION: 1. BI-RADS Category 3, probably benign. 2. Recommend 6 month ultrasound follow-up of the small cluster of cysts in the left breast. 3. Annual screening mammogram of the right breast is recommended. 4. The findings were discussed with the patient. Electronically signed by: Amador Menezes M.D. FRUIT DRYER: PSC TRANSCRIBE DATE/TIME: Nov 04 2016 5:07P RADIOLOGIST: AMADOR MENEZES M.D. READ ON: Nov 04 2016 5:11P ORDERING DR: EVITA VALENCIA M.D. THIS DOCUMENT HAS BEEN ELECTRONICALLY SIGNED BY: AMADOR MENEZES M.D. ON: Nov 04 2016 5:07P Attending: EVITA VALENCIA Requesting: EVITA VALENCIA Requesting Attending Attending ID: [id number] Requesting ID: [id number] Report To 1 ID: Report To 1 Name: , Report To 1 FAX: -- Report To 2 ID: Report To 2 Name: , Report To 2 FAX: -- NextGen Order #: us Not In File Miscellaneous IMG US PROCEDURES Sheila l Result * Diagnostic Mammogram Bilateral W Az (11/04/2016 7:35 PM CDT) Anatomical Region Laterality Modality Breast Bilateral Mammography 11/04/2016 7:35 PM CDT Narrative 11/04/2016 7:35 PM CDT Acc#: ??[id number] [facility] 0031 - Diag Mamm W Az Bi DATE OF EXAM: ??Varun ??2016 ??2:35PM DIAGNOSIS: ??ENCNTR SCREEN MAMMOGRAM FOR MALIGNANT NE CLINICAL HISTORY: ??SCREENING RESULT: EXAMINATION: Bilateral diagnostic mammogram with tomosynthesis HISTORY: Palpable lesion in the upper outer left breast. COMPARISON: 11/08/2014, 04/18/2014, 02/08/2013 and 03/22/2011 TECHNIQUE: Full view digital CC, MLO and ML views of the breasts were performed. Spot compression views of the left breast in CC and ML projections were performed. ??Images were obtained using 2-D and 3-D technique with tomosynthesis. ??Full view images were subjected to R2/CAD analysis. FINDINGS: The breasts are heterogeneously dense, which may obscure small masses. ??In the left breast, there is a 9 mm lobulated lesion in the upper outer breast, 4.5 cm from the nipple. ??No other discrete lesion is seen in either breast. ??No evidence of clustered microcalcifications, architectural distortion or skin thickening. The parenchymal pattern is unchanged from previous. Limited ultrasound was performed of the right breast because a previous right breast ultrasound from 04/16/2015 showed a hypoechoic lesion at 2:00 in the periareolar region and follow-up was recommended at that time. ??The current study redemonstrates the 5 mm hypoechoic lesion which is unchanged. Limited ultrasound was performed of the left breast at the site of the patient's palpable abnormality. ??There is a cluster of small cysts at 2:30, 4 cm from the nipple which corresponds to the patient's palpable abnormality. ??This measures 7.9 x 4.4 x 10.6 mm. There is mild blood flow in the periphery of the lesion but no blood flow within the lesion itself. ??Ultrasound of the left axilla shows a normal appearing lymph node. ? IMPRESSION: 1. ??BI-RADS Category 3, probably benign. 2. ??Repeat ultrasound of the left breast in 6 months is recommended to check stability of clustered cysts. 3. ??Routine screening annual mammogram of the right breast is recommended. 4. ??Findings were discussed with the patient. Electronically signed by: Amador Menezes M.D. ? TECHNOLOGIST: ?? DELIA VASQUEZ, TECHNOLOGIST MEDICAL IMAGING FRUIT DRYER: ??PSC TRANSCRIBE DATE/TIME: ??Varun ??2016 ??5:03P RADIOLOGIST: ??AMADOR MENEZES M.D. ??READ ON: ??Varun ??2016 ??5:07P ORDERING DR: EVITA VALENCIA M.D. THIS DOCUMENT HAS BEEN ELECTRONICALLY SIGNED BY: ??RIRI Louis, AMADOR ??ON: ??Varun ??2016 ??5:03P Attending: ??DERIK, ??EVITA Requesting: ??DERIK, ??EVITA Requesting Fax: ??[phone] Attending Fax: ??[phone] Attending ID: ??[id number] Requesting ID: ??[id number] Report To 1 ID: ?? Report To 1 Name: ??, ?? Report To 1 FAX: ??-- Report To 2 ID: ?? Report To 2 Name: ??, ?? Report To 2 FAX: ??-- NextGen Order #: ?? Procedure Note Miscellaneous, Not In File / Provider, MD Lynne - 11/04/2016 Acc#: [id number] [facility] 0031 - Diag Mamm W Az Bi DATE OF EXAM: Nov 04 2016 2:35PM DIAGNOSIS: ENCNTR SCREEN MAMMOGRAM FOR MALIGNANT NE CLINICAL HISTORY: SCREENING RESULT: EXAMINATION: Bilateral diagnostic mammogram with tomosynthesis HISTORY: Palpable lesion in the upper outer left breast. COMPARISON: 11/08/2014, 04/18/2014, 02/08/2013 and 03/22/2011 TECHNIQUE: Full view digital CC, MLO and ML views of the breasts were performed. Spot compression views of the left breast in CC and ML projections were performed. Images were obtained using 2-D and 3-D technique with tomosynthesis. Full view images were subjected to R2/CAD analysis. FINDINGS: The breasts are heterogeneously dense, which may obscure small masses. In the left breast, there is a 9 mm lobulated lesion in the upper outer breast, 4.5 cm from the nipple. No other discrete lesion is seen in either breast. No evidence of clustered microcalcifications, architectural distortion or skin thickening. The parenchymal pattern is unchanged from previous. Limited ultrasound was performed of the right breast because a previous right breast ultrasound from 04/16/2015 showed a hypoechoic lesion at 2:00 in the periareolar region and follow-up was recommended at that time. The current study redemonstrates the 5 mm hypoechoic lesion which is unchanged. Limited ultrasound was performed of the left breast at the site of the patient's palpable abnormality. There is a cluster of small cysts at 2:30, 4 cm from the nipple which corresponds to the patient's palpable abnormality. This measures 7.9 x 4.4 x 10.6 mm. There is mild blood flow in the periphery of the lesion but no blood flow within the lesion itself. Ultrasound of the left axilla shows a normal appearing lymph node. IMPRESSION: 1. BI-RADS Category 3, probably benign. 2. Repeat ultrasound of the left breast in 6 months is recommended to check stability of clustered cysts. 3. Routine screening annual mammogram of the right breast is recommended. 4. Findings were discussed with the patient. Electronically signed by: Amador Menezes M.D. TECHNOLOGIST: DELIA VASQUEZ TECHNOLOGIST MEDICAL IMAGING FRUIT DRYER: [facility] TRANSCRIBE DATE/TIME: Nov 04 2016 5:03P RADIOLOGIST: AMADOR MENEZES M.D. READ ON: Nov 04 2016 5:07P ORDERING DR: EVITA VALENCIA M.D. THIS DOCUMENT HAS BEEN ELECTRONICALLY SIGNED BY: AMADOR MENEZES M.D. ON: Nov 04 2016 5:03P Attending: EVITA VALENCIA Requesting: EVITA VALENCIA Requesting Attending Attending ID: [id number] Requesting ID: [id number] Report To 1 ID: Report To 1 Name: , Report To 1 FAX: -- Report To 2 ID: Report To 2 Name: , Report To 2 FAX: -- NextGen Order #: us Not In File Miscellaneous IMG MAMMO PROCEDURES F inal Result documented in this encounter Visit Diagnoses Not on filedocumented in this encounter Care Teams Wax Machine Operator Relationship Specialty Start Date End Date Yogi Aguilar MD [address] [facility] [address] [facility] [address] [place] [id number] PCP - General 03/19/16 11/02/23 documented as of this encounter
--- OUTSIDE RECORDS SUMMARY | 2024-06-12 07:42 | XMS_ITS | Encounter Summary ---
Author Organization [facility] Address [address] [address] Care Team Providers Care Propagator Laborer Name Role Phone Yogi Aguilar MD Primary Care Provider [phone] Reason for Referral * Injectables (Routine) - Closed Specialty Diagnoses / Procedures Referred By Contac t Referred To Contact Diagnoses Trochanteric bursitis, right hip Procedures Greater trochanteric bursa injection Elvia Gonzalez MD Phone: tel: Referral ID Status Reason Start Date Expiration Date Visits Re quested Visits Authorized [id number] Closed 11/29/2017 06/10/2019 1 1 * Diagnostic Imaging (Routine) - Closed Specialty Diagnoses / Procedures Referred By Contac t Referred To Contact Diagnoses Bilateral hip pain Procedures XR Spine Lumbar 2 or 3 Views Elvia Gonzalez MD Phone: tel: Referral ID Status Reason Start Date Expiration Date Visits Re quested Visits Authorized [id number] Closed 11/29/2017 06/10/2019 1 1 * Diagnostic Imaging (Routine) - Closed Specialty Diagnoses / Procedures Referred By Contac t Referred To Contact Diagnoses Bilateral hip pain Procedures XR Bilateral Hips W Pelvis 2 Vw Elvia Gonzalez MD Phone: tel: Referral ID Status Reason Start Date Expiration Date Visits Re quested Visits Authorized [id number] Closed 11/29/2017 06/10/2019 1 1 Reason for Visit * Reason Comments Pain Encounter Details Date Type Department Care Team (Late st Contact Info) Description 11/29/2017 10:30 AM CDT Office Visit [facility] Orthopedics and Sports Medicine [address] [place] [address] [address] [place] [address] Elvia Gonzalez MD [address] [place] [address] [address] [place] [address] Trochanteric bursitis, right hip (Primary Dx); Bilateral hip pain; Tendinopathy of right gluteus medius Social History Tobacco Use Types Packs/Day Years Used Date Smoking Tobacco: Former Smokeless Tobacco: Never Comments Unknown Sex and Gender Information Value Date Recorded Sex Assigned at Not on file 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[employer] Gender Identity Not on file Sexual Orientation Not on file documented as of this encounter Last Filed Vital Signs Vital Sign Reading Time Taken Comments Blood Pressure 109/75 11/29/2017 10:32 AM CDT Pulse 91 11/29/2017 10:32 AM CDT Temperature - - Respiratory Rate - - Oxygen Saturation - - Inhaled Oxygen Concentration - - Weight 64.4 kg (142 lb) 11/29/2017 10:32 AM CDT Height 157.5 cm (5' 2 ) 11/29/2017 10:32 AM CDT Body Mass Index 25.97 11/29/2017 10:32 AM CDT documented in this encounter Ordered Prescriptions Prescription Sig Dispense Quantity Refills Last Filled Start Date End Date naproxen (NAPROSYN) 500 mg tablet Take 1 tablet (500 mg total) by mouth 2 (two) times a day with meals. 60 tablet 2 11/29/2017 02/13/2018 documented in this encounter Progress Notes * Elvia Gonzalez MD - 11/29/2017 10:30 AM CDTAssociated Order(s): GREATER TROCHANTERIC BURSA INJECTION Post-Procedure Diagnose(s): Trochanteric bursitis, right hip Images from the original note were not included. NEW PATIENT VISIT Subjective CHIEF COMPLAINT She had concerns including Pain of the Right Hip. HISTORY OF PRESENT ILLNESS 67-year-old female chief complaint of bilateral hip pain right worse than left mostly on the lateral aspect of her hip and up her buttock. She has occasional radiating pain down the lateral aspect ofher thigh. She has seen Dr. Tse in at [facility] [place] in the past. Pain Assessment Pain Assessment: 0-10 Pain Score: 4 PAST MEDCIAL HISTORY She has a past medical history of Cancer ([facility]); Diabetes mellitus ([facility]); Gastric reflux; Hypercholesterolemia; Hypertension; and Osteoarthritis. PAST SURGICAL HISTORY She has a past surgical history that includes Total abdominal hysterectomy and Tonsillectomy. MEDICATIONS She has a current medication list which includes the following prescription(s): atenolol, atorvastatin, estrace, lisinopril-hydrochlorothiazide, metformin, omeprazole, simvastatin, lisinopril, and naproxen. ALLERGIES She is allergic to penicillins and sulfa (sulfonamide antibiotics). SOCIAL HISTORY She reports that she has quit smoking. She has never used smokeless tobacco. FAMILY HISTORY Her family history includes Alzheimer's disease in her mother; Asthma in her father; Heart disease in her mother; Parkinsonism in an other family member; Prostate cancer in her brother; Rheum arthritis in her mother. REVIEW OF SYSTEMS Review of Systems Constitutional: Negative for activity change, appetite change, chills and fever. HENT: Negative for congestion, dental problem, ear pain, hearing loss and voice change. Eyes: Negative for pain and visual disturbance. Respiratory: Negative for apnea, cough, chest tightness and shortness of breath. Cardiovascular: Negative for chest pain, palpitations and leg swelling. Gastrointestinal: Negative for blood in stool, constipation, diarrhea, nausea and vomiting. Endocrine: Negative for cold intolerance and heat intolerance. Genitourinary: Negative for difficulty urinating and hematuria. Musculoskeletal: Positive for arthralgias, gait problem, joint swelling and myalgias. Skin: Negative for color change, rash and wound. Allergic/Immunologic: Negative for environmental allergies. Neurological: Negative for dizziness, syncope, numbness and headaches. Hematological: Negative for adenopathy. Does not bruise/bleed easily. Psychiatric/Behavioral: Negative for confusion. The patient is not nervous/anxious and is not hyperactive. Objective PHYSICAL EXAM BP 109/75 Pulse 91 Ht 157.5 cm (5' 2 ) Wt 64.4 kg (142 lb) BMI 25.97 kg/m?? Spine Right strength The patient has pain with strength testing the right hip abductior. Right hip Inspection Erythema: absent Edema: absent Swelling: absent Effusion: absent Skin temperature: normal Surgical scar/wound: absent. Gait: antalgic Limp: slight Supportive device: none Limb length: equal. Palpation Tenderness: present. The tenderness is located in the greater trochanter. Radiating pain: no. Pop or click: no. Pelvic stability AP stress: stable Pelvic stability lateral stress: stable Range of motion The patient has normal range of motion of the right hip. The patient has pain with range of motion of the right hip. Stability The patient has normal stabiltiy of the right hip. Strength The patient has 5/5 strenght throughout with exceptions as noted below. Hip abduction: 3/5. Pain with hip abduction: yes Neurovascular The patient has normal vascular on the right side of their body. The patient has normal sensation. Tests Anterior impingement: negative Posterior impingement: negative Lateral impingement: negative Anterior apprehension: negative TODD: negative SLR (straight leg raise): negative Resisted SLR (straight leg raise): negative Comments: Patient is tender to palpation along the course of her abductors and bursa and has some tightness in her IT band with positive Bess's test REVIEW OF X-RAYS/STUDIES/LABS mild to moderate right hip arthritic change Assessment/Plan Isela was seen today for pain. Diagnoses and all orders for this visit: Bilateral hip pain - XR Bilateral Hips W Pelvis 2 Vw - XR Spine Lumbar 2 or 3 Views - Ambulatory referral order to Physical Therapy -; Future Other orders - naproxen (NAPROSYN) 500 mg tablet; Take 1 tablet (500 mg total) by mouth 2 (two) times a day withmeals. Greater trochanteric bursa injection Date/Time: 11/29/2017 12:48 PM Performed by: ELVIA GONZALEZ Authorized by: ELVIA GONZALEZ Greater Trochanteric Bursa Injection: Consent Given by: Patient Site marked: the procedure site was marked Timeout: prior to procedure the correct patient, procedure, and site was verified Verbal consent obtained?: Yes Prior to the start of the procedure, verbal verification by the procedure participant(s) confirmed (as applicable): correct patient identity; correct site/side marked and visible; agreement on the procedure to be done; correct patient positioning; an accurate procedure consent form, relevant imagesand results correctly labeled and displayed; any safety precautions based on clinical history and/or medication use have been addressed.: Supporting Documentation: Indications: Pain and therapeutic Procedure Details: Site: Right Greater Trochanteric Bursa Prep: patient was prepped and draped in usual sterile fashion Patient position: Sidelying Needle Size: 22 G Ultrasound guidance: No Approach: Lateral Medications: 3 mL bupivacaine 0.25 % (2.5 mg/mL); 3 mL lidocaine 20 mg/mL (2 %); 80 mg methylPREDNISolone acetate 80 mg/mL Patient tolerance: Patient tolerated the procedure well with no immediate complications PLAN Hopefully the trochanteric injection will give her some relief and I have ordered physical therapy to focus on abduct her tendinitis and bursitis. We will see her back in about 6 months. If she gets relief from the right-sided injection and would like to have this on the left side she will call andto be seen earlier and we can provide her with a left-sided trochanteric injection as well. Elvia Gonzalez MD documented in this encounter Plan of Treatment Not on file documented as of this encounter Procedures Procedure Name Priority Date/Time Associated Diagnosis Comments XR SPINE LUMBAR 2 OR 3 VIEWS Schedule Routine, Read Routine (OP Routine) 11/29/2017 10:34 AM CDT Bilateral hip pain XR HIPS BILATERAL W PELVIS 2 VIEW Schedule Routine, Read Routine (OP Routine) 11/29/2017 10:34 AM CDT Bilateral hip pain DE ARTHROCENTESIS ASPIR&/INJ MAJOR JT/BURSA W/O US Routine 11/29/2017 10:30 AM CDT Trochanteric bursitis, right hip documented in this encounter Results * XR Spine Lumbar 2 or 3 Views (11/29/2017 10:34 AM CDT) Anatomical Region Laterality Modality Spine N/A Digital Radiogra phy Narrative 11/29/2017 12:48 PM CDT Mild L3 through S1 posterior element lumbar DJD us Elvia Gonzalez MD IMG XR PROCEDURES Final Result * XR Bilateral Hips W Pelvis 2 Vw (11/29/2017 10:34 AM CDT) Anatomical Region Laterality Modality Lower Extremities, Hip, Pelvis Bilateral D igital Radiography Narrative 11/29/2017 12:48 PM CDT Mild early bilateral hip arthritic change Elvia Gonzalez MD IMG XR PROCEDURES Final Result * DE ARTHROCENTESIS ASPIR&/INJ MAJOR JT/BURSA W/O US (11/29/2017 10:30 AM CDT) Narrative Elvia Gonzalez MD - 11/29/2017 10:30 AM CDT Elvia Gonzalez MD ? 11/29/2017 12:51 PM Greater trochanteric bursa injection Date/Time: 11/29/2017 12:48 PM Performed by: ELVIA GONZALEZ Authorized by: ELVIA GONZALEZ Greater Trochanteric Bursa Injection: ??Consent Given by: ??Patient ??Site marked: the procedure site was marked ?Timeout: prior to procedure the correct patient, procedure, and site was verified ?? Verbal consent obtained?: Yes ?? Prior to the start of the procedure, verbal verification by the procedure participant(s) confirmed (as applicable): correct patient identity; correct site/side marked and visible; agreement on the procedure to be done; correct patient positioning; an accurate procedure consent form, relevant images and results correctly labeled and displayed; any safety precautions based on clinical history and/or medication use have been addressed.: Supporting Documentation: ??Indications: ??Pain and therapeutic Procedure Details: ??Site: ??Right Greater Trochanteric Bursa ??Prep: patient was prepped and draped in usual sterile fashion ?Patient position: ??Sidelying ??Needle Size: ??22 G ??Ultrasound guidance: No ?Approach: ??Lateral ??Medications: ??3 mL bupivacaine 0.25 % (2.5 mg/mL); 3 mL lidocaine 20 mg/mL (2 %); 80 mg methylPREDNISolone acetate 80 mg/mL ??Patient tolerance: ??Patient tolerated the procedure well with no immediate complications us Elvia Gonzalez MD IN CLINIC/BEDSIDE ORDERA BLES Final Result documented in this encounter Visit Diagnoses Diagnosis Trochanteric bursitis, right hip- Primary Bilateral hip pain Pain in joint, pelvic region and thigh Tendinopathy of right gluteus medius documented in this encounter Administered Medications Inactive Administered Medications - up to 3 most recent administrations Medication Order MAR Action Action Date Dose Rate Site bupivacaine (MARCAINE) 0.25 % (2.5 mg/mL) injection 3 mL 3 mL, other, One-Time Injection, Starting on Tue11/29/17 at 1248, For 1 doseIndications:Trochanteric bursitis, right hip Given 11/29/2017 12:48 PM CDT 3 mL lidocaine (XYLOCAINE) 20 mg/mL (2 %) injection 3 mL 3 mL, One-Time Injection, Starting on Tue11/29/17 at 1248, For 1 dose, Indications: Administration of Local AnesthesiaIndications:Administrati on of Local Anesthesia Given 11/29/2017 12:48 PM CDT 3 mL methylPREDNISolone acetate (DEPO-medrol) injection 80 mg 80 mg, intra-articular, One-Time Injection, Starting on Tue11/29/17 at 1248, For 1 doseIndications:Trochanteric bursitis, right hip Given 11/29/2017 12:48 PM CDT 80 mg documented in this encounter Discontinued Medications Medication Sig Discontinue Reason Start Date End Da te simvastatin (ZOCOR) 40 mg tablet take 1 tablet by oral route every day in the evening 05/13/2015 11/29/2017 atenolol (TENORMIN) 50 mg tablet take 1 tablet by oral route every day 05/13/2015 11/29/2017 documented as of this encounter Historical Medications * This list may reflect changes made after this encounter. metFORMIN (GLUCOPHAGE) 500 mg tablet Take 1 tablet (500 mg total) by mouth 2 (two) times a day with meals 09/20/2017 simvastatin (ZOCOR) 40 mg tablet 03/14/2024 atenolol (TENORMIN) 50 mg tablet 03/14/2024 omeprazole (PriLOSEC) 40 mg capsule 09/20/2017 03/14/2024 lisinopril-hydroC HLOROthiazide (PRINZIDE,ZESTORE TIC) 20-25 mg per tabletIndications :hypertension 03/14/2024 atorvastatin (LIPITOR) 40 mg tablet 11/17/2017 03/14/2024 added in this encounter Care Teams Propagator Laborer Relationship Specialty Start Date End Date Yogi Aguilar MD [address] [facility] [address] [facility] [place] [id number] PCP - General 03/19/16 11/02/23 documented as of this encounter
--- OUTSIDE RECORDS SUMMARY | 2024-06-12 07:42 | XMS_ITS | Encounter Summary ---
Author Organization [facility] Address [address] [place] [address] Care Team Providers Care Marine Water Tender Name Role Phone Yogi Aguilar MD Primary Care Provider [phone] Encounter Details Date Type Department Care Team (Late st Contact Info) Description 12/01/2016 10:51 AM CDT - 12/01/2016 11:59 PM T Hospital Encounter [facility] INTER[facility] [phone] Susana Leung MD PhD [address] [facility] [id number] [place] [address] Discharge Disposition: Discharge to home or self care Social History Tobacco Use Types Packs/Day Years Used Date Smoking Tobacco: Former Comments Unknown Sex and Gender Information Value Date Recorded Sex Assigned at Not on file 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 OSVALDO DONAHUE M.D. FINAL REPORT The radiology attending physician has personally reviewed this study, and has reviewed and/or edited this written report and agrees with it. ACC# ??Date Time ??Exam [id number] Dec 01, 2016 09:54:00 [facility] [id number] Consult Out Films (read) EXAMINATION: ?? READING OF OUTSIDE IMAGING EXAMINATION - ??BILATERAL DIGITAL DIAGNOSTIC MAMMOGRAM (9 images) from [facility] dated 11/04/2016 DATE OF INTERPRETATION: 12/01/2016 HISTORY: Abnormal mammogram from another institution. Interpretation of the patient's outside mammogram is requested by Dr. Leung who is seeing the patient in [facility] today. COMPARISON: Screening mammograms dating back to 03/22/2011. BREAST PARENCHYMAL COMPOSITION: There are scattered areas of fibroglandular density. FINDINGS: A triangular skin marker denotes the region of palpable concern in the left breast. There is a new asymmetry in the region of palpable abnormality in the upper outer left breast. No abnormality is identified in the right breast. Bilateral benign appearing masses are present in both breasts. IMPRESSION: ?? New asymmetry in the upper outer left breast in the region of palpable abnormality. Targeted left breast ultrasound is recommended. NOTE: The findings, conclusions and recommendations within this report do not replace the initial findings, conclusions and recommendations made at the facility where the study was performed based upon the imaging and clinical condition at that time. ??Review of the prior report and correlation with the clinical history are necessary. The provided images may or may not represent the [place] source data set and thus may contain changes which may lower the sensitivity in the second opinion interpretation. Requested By: SUSANA LEUNG ??, PHD ? Dictated By: ?? OSVALDO DONAHUE M.D. ??on Nov ??2016 10:04A This document has been electronically signed by: DANELLE HOPKINS M.D. on Nov ??2016 11:55A DANELLE HOPKINS M.D. OSVALDO DONAHUE M.D. FINAL REPORT The radiology attending physician has personally reviewed this study, and has reviewed and/or edited this written report and agrees with it. Attending: ??XOCHITL, ??SUSANA Requesting: ??XOCHITL, ??SUSANA Requesting Fax: ?? Attending Fax: ?? Attending ID: ??[id number] Requesting ID: ??[id number] Report To 1 ID: ??[id number] ? Report To 1 Name: ??, ?? Report To 1 FAX: ?? NextGen Order #: ?? Procedure Note Miscellaneous, Not In File - 03/19/2017 DANELLE HOPKINS M.D. OSVALDO DONAHUE M.D. FINAL REPORT The radiology attending physician has personally reviewed this study, and has reviewed and/or edited this written report and agrees with it. ACC# Date Time Exam [id number] Dec 01, 2016 09:54:00 [facility] [id number] Consult Out Films (read) EXAMINATION: READING OF OUTSIDE IMAGING EXAMINATION - BILATERAL DIGITAL DIAGNOSTIC MAMMOGRAM (9 images) from [facility] dated 11/04/2016 DATE OF INTERPRETATION: 12/01/2016 HISTORY: Abnormal mammogram from another institution. Interpretation of the patient's outside mammogram is requested by Dr. Leung who is seeing the patient in [facility] Surgery Clinic today. COMPARISON: Screening mammograms dating back to 03/22/2011. BREAST PARENCHYMAL COMPOSITION: There are scattered areas of fibroglandular density. FINDINGS: A triangular skin marker denotes the region of palpable concern in the left breast. There is a new asymmetry in the region of palpable abnormality in the upper outer left breast. No abnormality is identified in the right breast. Bilateral benign appearing masses are present in both breasts. IMPRESSION: New asymmetry in the upper outer left breast in the region of palpable abnormality. Targeted left breast ultrasound is recommended. NOTE: The findings, conclusions and recommendations within this report do not replace the initial findings, conclusions and recommendations made at the facility where the study was performed based upon the imaging and clinical condition at that time. Review of the prior report and correlation with the clinical history are necessary. The provided images may or may not represent the [place] source data set and thus may contain changes which may lower the sensitivity in the second opinion interpretation. Requested By: SUSANA LEUNG MD, PHD Dictated By: OSVALDO DONAHUE M.D. on Dec 01 2016 10:04A This document has been electronically signed by: DANELLE HOPKINS M.D. on Dec 01 2016 11:55A Missy MAR M.D. FINAL REPORT The radiology attending physician has personally reviewed this study, and has reviewed and/or edited this written report and agrees with it. Attending: SUSANA LEUNG Requesting: SUSANA LEUNG Requesting Fax: Attending Fax: Attending ID: [id number] Requesting ID: [id number] Report To 1 ID: [id number] Report To 1 Name: , Report To 1 FAX: NextGen Order #: Result [facility] Susana Leung MD PhD IMG XR SD OCEDURES Edited Result - Final documented in this encounter Visit Diagnoses Not on filedocumented in this encounter Care Teams Marine Water Tender Relationship Specialty Start Date End Date Yogi Aguilar MD [address] [facility] [place] [address] INTER[facility] MEDICINE [place], [place] [id number] PCP - General 03/19/16 11/02/23 documented as of this encounter
--- OUTSIDE RECORDS SUMMARY | 2024-06-12 07:42 | XMS_ITS | Encounter Summary ---
Author Organization [facility] Healthcare Address [address] [place] [address] Care Team Providers Care Crank Hand Name Role Phone Yogi Aguilar MD Primary Care Provider [phone] Reason for Referral * Diagnostic Imaging (Routine) - Closed Specialty Diagnoses / Procedures Referred By Contac t Referred To Contact Diagnoses Encounter for screening for osteoporosis Procedures Dexa Axial Skeleton Bone Density 1 or 2 Site Yogi Aguilar MD Phone: tel: fax: [facility] Referral ID Status Reason Start Date Expiration Date Visits Re quested Visits Authorized [id number] Closed 01/05/2018 07/17/2019 1 1 Reason for Visit * Diagnostic Imaging (Routine) - Closed Specialty Diagnoses / Procedures Referred By Contac t Referred To Contact Diagnoses Encounter for screening for osteoporosis Procedures Dexa Axial Skeleton Bone Density 1 or 2 Site Yogi Aguilar MD Phone: tel: fax: [facility] Referral ID Status Reason Start Date Expiration Date Visits Re quested Visits Authorized [id number] Closed 01/05/2018 07/17/2019 1 1 Encounter Details Date Type Department Care Team (Latest Contact Info) Description 01/12/2018 10:48 AM CDT - 01/12/2018 11:59 PM CDT Hospital Encounter [facility] Imaging and Radiiology [address] [place] [phone] Yogi Aguilar MD [address] [facility] [address] [place] [id number] Encounter for screening for osteoporosis Discharge Disposition: Discharge to home or self care Social History Tobacco Use Types Packs/Day Years Used Date Smoking Tobacco: Former Smokeless Tobacco: Never Comments Unknown Sex and Gender Information Value Date Recorded Sex Assigned at Not on file 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 TREATMENT RECOMMENDATIONS: ??None FOLLOW UP RECOMMENDATIONS: ??Follow-up exam in 3-5 years is recommended. Electronically signed by: Orlando Tovar M.D. Narrative 01/12/2018 12:17 PM CDT EXAM: Dexa bone densitometry DATE: 01/12/2018 1:30 PM CLINICAL HISTORY: Postmenopausal, osteoporosis screening. ??The patient is a 67-year-old female. COMPARISON: None TECHNIQUE: ??The T-score compares the patient's bone mineral density to peak bone mass of young normal adults. ??The more negative than number, the greater loss of bone. ?T-score ? % of Normal AP lumbar spine: ?0.6 ? 107% Total hip: ? -0.4 ? 95% Femoral neck: ? -0.1 ?99% Procedure Note Orlando Tovar MD - 01/12/2018 EXAM: Dexa bone densitometry DATE: 01/12/2018 1:30 PM CLINICAL HISTORY: Postmenopausal, osteoporosis screening. The patient is a 67-year-old female. COMPARISON: None TECHNIQUE: The T-score compares the patient's bone mineral density to peak bone mass of young normal adults. The more negative than number, the greater loss of bone. T-score % of Normal AP lumbar spine: 0.6 107% Total hip: -0.4 95% Femoral neck: -0.1 99% IMPRESSION: The results of this patient's bone mineral density test are normal. TREATMENT RECOMMENDATIONS: None FOLLOW UP RECOMMENDATIONS: Follow-up exam in 3-5 years is recommended. Electronically signed by: Orlando Tovar M.D. Yogi Aguilar MD IMG DXA PROCEDURES Final Resu lt documented in this encounter Visit Diagnoses Diagnosis Encounter for screening for osteoporosis documented in this encounter Care Teams Crank Hand Relationship Specialty Start Date End Date Yogi Aguilar MD [address] [facility] [address] [place] [address] PCP - General 03/19/16 11/02/23 documented as of this encounter
--- OUTSIDE RECORDS SUMMARY | 2024-06-12 07:42 | XMS_ITS | Encounter Summary ---
Author Organization [facility] Healthcare Address [address] [place] [address] Care Team Providers Care Steel Die Printer Name Role Phone Yogi Aguilar MD Primary Care Provider [phone] Reason for Referral * Diagnostic Imaging (Routine) - Closed Specialty Diagnoses / Procedures Referred By Shari crenshaw Referred To Contact Diagnoses Encounter for screening mammogram for malignant neoplasm of breast Procedures Screening Mammogram Bilateral W Freddie Reynolds DO Phone: tel: fax: [facility] Referral ID Status Reason Start Date Expiration Date Visits Re quested Visits Authorized [id number] Closed 01/15/2019 07/26/2020 1 1 Reason for Visit * Diagnostic Imaging (Routine) - Closed Specialty Diagnoses / Procedures Referred By Shari crenshaw Referred To Contact Diagnoses Encounter for screening mammogram for malignant neoplasm of breast Procedures Screening Mammogram Bilateral W Freddie Reynolds DO Phone: tel: fax: [facility] Referral ID Status Reason Start Date Expiration Date Visits Re quested Visits Authorized [id number] Closed 01/15/2019 07/26/2020 1 1 Encounter Details Date Type Department Care Team (Latest Contact Info) Description 02/05/2019 9:58 AM CDT - 02/05/2019 11:59 PM CDT Hospital Encounter [facility] Imaging and Radiology [address] [place] [address] [place] [phone] Freddie Stanley DO [address] [place] [phone] Encounter for screening mammogram for malignant neoplasm of breast Discharge Disposition: Discharge to home or self care Social History Tobacco Use Types Packs/Day Years Used Date Smoking Tobacco: Former Smokeless Tobacco: Never Comments Unknown Sex and Gender Information Value Date Recorded Sex Assigned at Not on file 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 Gender Identity Not on file Sexual Orientation Not on file documented as of this encounter Medications at Time of Discharge blood glucose control high,low (Accu-Chek Guide L1-L2 Ctrl Nadja) solution by intravitreal route 05/25/2018 blood glucose diagnostic (Accu-Chek Guide test strips) strip by intravitreal route 05/25/2018 blood-glucose meter (Accu-Chek Guide Glucose Meter) [facility] ACCU-CHEK GUIDE W/DEVICE KIT 05/25/2018 calcium carbonate-vitami n D3 (Calcium 500 + D) 1,250 mg (500 mg elemental)-400 unit chewable tablet CALCIUM + D TABLET 09/06/2018 glucosamine sulfate 500 mg capsule GLUCOSAMINE CAPSULE 09/06/2018 lancets 30 gauge [facility] PHARMACIST CHOICE LANCETS 05/25/2018 lancing device [facility] SIMPLE DIAGNOSTICS LANCING DEV 05/25/2018 metFORMIN (GLUCOPHAGE) [...] [place] Schedule Routine, Read Routine (OP Routine) 02/05/2019 10:12 AM CDT Encounter for screening mammogram for malignant neoplasm of breast documented in this encounter Results * Screening Mammogram Bilateral W [place] (02/05/2019 10:12 AM CDT) Anatomical Region Laterality Modality Breast Bilateral Mammography 02/06/2019 11:2 2 AM CDT Impressions 02/06/2019 11:26 AM CDT 1. ??BI-RADS Category 2, benign. 2. ??Annual screening mammography, monthly self breast examinations and yearly breast examination by a physician are recommended. Electronically signed by: Camille Rodriges M.D. Narrative 02/06/2019 11:26 AM CDT RESULT: Examination: Bilateral screening digital mammography with CAD and tomosynthesis History: Routine screening, family history of breast cancer. Comparison: 01/12/2018, 12/01/2016, 11/04/2016, 11/08/2014, 04/22/2014, 04/18/2014, 02/08/2013, 03/22/2011. Findings: Craniocaudal and mediolateral oblique views of both breasts were obtained utilizing full field digital mammography. The breasts are heterogeneously dense limiting the sensitivity of the examination. ??Bilateral stable scattered benign calcifications are seen. ??The parenchymal pattern is stable. ??There is no suspicious dominant mass, clustered microcalcification or architectural distortion. This examination has been subjected to R2/CAD analysis. us Freddie Stanley DO IMG MAMMO PROCEDURES Final Resul t documented in this encounter Visit Diagnoses Diagnosis Encounter for screening mammogram for malignant neoplasm of breast documented in this encounter Care Teams Steel Die Printer Relationship Specialty Start Date End Date Yogi Aguilar MD [address] [facility] [address] [place] [address] PCP - General 03/19/16 11/02/23 documented as of this encounter
--- OUTSIDE RECORDS SUMMARY | 2024-06-12 07:42 | XMS_ITS | Encounter Summary ---
Author Organization [facility] Medical Group Address [address] [place] [address] Care Team Providers Care Teenage Babysitter Name Role Phone Yogi Aguilar MD Primary Care Provider [phone] Reason for Visit * Diagnostic Imaging (Routine) - Closed Specialty Diagnoses / Procedures Referred By Shari crenshaw Referred To Contact Diagnoses Bilateral hip pain Procedures XR Bilateral Hips W Pelvis 2 Vw Dmitri Crespo MD Phone: tel: Referral ID Status Reason Start Date Expiration Date Visits Re quested Visits Authorized [id number] Closed 11/29/2017 06/10/2019 1 1 Encounter Details Date Type Department Care Team (Latest Contact Info) Description 11/29/2017 10:34 AM CDT - 11/29/2017 11:59 PM CDT Hospital Encounter [facility] Medical [facility] Orthopedics and Sports Medicine [address] [place] [address] [place] [phone] Discharge Disposition: Discharge to home or self care Social History Tobacco Use Types Packs/Day Years Used Date Smoking Tobacco: Former Smokeless Tobacco: Never Comments Unknown Sex and Gender Information Value Date Recorded Sex Assigned at Not on file 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 Gender Identity Not on file Sexual [...] Name Priority Date/Time Associated Diagnosis Comments XR HIPS BILATERAL W PELVIS 2 VIEW Schedule Routine, Read Routine (OP Routine) 11/29/2017 10:34 AM CDT Bilateral hip pain documented in this encounter Results * XR Bilateral Hips W Pelvis 2 Vw (11/29/2017 10:34 AM CDT) Anatomical Region Laterality Modality Lower Extremities, Hip, Pelvis Bilateral D igital Radiography Narrative 11/29/2017 12:48 PM CDT Mild early bilateral hip arthritic change us Dmitri Crespo MD IMG XR PROCEDURES Final Result documented in this encounter Visit Diagnoses Not on filedocumented in this encounter Care Teams Teenage Babysitter Relationship Specialty Start Date End Date Yogi Aguilar MD [address] [place] [address] PCP - General 03/19/16 11/02/23 documented as of this encounter
--- OUTSIDE RECORDS SUMMARY | 2024-06-12 07:42 | XMS_ITS | Encounter Summary ---
Author Organization [facility] Medical Group Address [address] [place] [address] Care Team Providers Care Contract Technical Writer Name Role Phone Yogi Aguilar MD Primary Care Provider [phone] Reason for Visit * Reason Onset Date Comments xr disc 12/05/2017 Encounter Details Date Type Department Care Team (Late st Contact Info) Description 12/05/2017 Telephone [facility] Medical [facility] Orthopedics and Sports Medicine [address] [place] [address] [address] [phone] Lisandro Wiseman RT xr disc Social History Tobacco Use Types Packs/Day Years Used Date Smoking Tobacco: Former Smokeless Tobacco: Never Comments Unknown Sex and Gender Information Value Date Recorded Sex Assigned at Not on file 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 Gender Identity Not on file Sexual Orientation Not on file documented as of this encounter Miscellaneous Notes * Telephone Encounter - Lisandro Wiseman R-RT - 12/05/2017 8:15 AM CDT xr disc Hips [place] documented in this encounter Plan of Treatment Not on file documented as of this encounter Visit Diagnoses Not on filedocumented in this encounter Care Teams Contract Technical Writer Relationship Specialty Start Date End Date Yogi Aguilar MD [address] [facility] [address] [place] [address] PCP - General 03/19/16 11/02/23 documented as of this encounter
--- OUTSIDE RECORDS SUMMARY | 2024-06-12 07:42 | XMS_ITS | Encounter Summary ---
Author Organization [facility] Healthcare Address [address] [place] [address] Care Team Providers Care Management Recruiter Name Role Phone Unavailable Primary Care Provider Unavailabl e Encounter Details Date Type Department Care Team (Late st Contact Info) Description 11/08/2014 1:53 PM CDT - 11/08/2014 11:59 PM CDT Hospital Encounter [place] [address] [facility] [id number] [place] [address] Lump or mass in breast Social History Tobacco Use Types Packs/Day Years Used Date Smoking Tobacco: Never Assessed Comments Unknown Sex and Gender Information Value Date Recorded Sex Assigned at Not on file Legal Sex Female 1:32 PM [employer] Gender Identity Not on file Sexual Orientation Not on file documented as of this encounter Plan of Treatment Not on file documented as of this encounter Procedures Procedure Name Priority Date/Time Associated Diagnosis Comments US BREAST LIMITED Routine 11/08/2014 3:4 1 PM CDT DIAGNOSTIC MAMMOGRAM BILATERAL W AZ Routine 11/08/2014 2:53 PM CDT documented in this encounter Results * US Breast Limited (11/08/2014 3:41 PM CDT) Anatomical Region Laterality Modality Breast N/A Ultrasound 11/08/2014 3:41 PM CDT Narrative 11/08/2014 4:27 PM CDT DATE OF EXAM: ??Nov 08 2014 ??3:41PM Acc#: ??[id number] ??WUS [id number] - US Breast Limited R ?? DIAGNOSIS: ??MAMM CLINICAL HISTORY: ?? PALPABLE LUMP RESULT: \ EXAM: LIMITED RIGHT BREAST ULTRASOUND DATE: ??November 08, 2014 CLINICAL HISTORY: Palpable periareolar right breast lump in a patient with a family history of breast cancer TECHNIQUE: ??Multiple ultrasonographic images of the periareolar right breast and right axilla were obtained by the technologist and submitted for review. In addition, I personally performed physical examination and ultrasonographic evaluation of the periareolar right breast. Prior mammograms are not currently available for comparison. FINDINGS: Ultrasonographic evaluation of the periareolar aspect of the right breast yielded a small cluster of cysts at the 2:00 position approximately 1 cm from the nipple that measured 6.7 x 3.2 x 4.4 mm. There is no internal vascularity or adjacent hypervascularity. This cluster of cysts is surrounded by normal breast tissue. On physical exam, there was a pea-sized palpable lump just adjacent to the right nipple at the 2:00 position. This did not correspond to the ultrasonographic finding. Ultrasonographic evaluation of the area of palpable abnormality yields a subcentimeter ovoid hypodense area just under the skin. This may represent a sebaceous cyst, though no connection to the skin surface could be found. A few dilated ducts are seen in the periareolar region. Cursory evaluation of the right axilla yields no evidence of adenopathy. IMPRESSION: ?\ 1. BIRADS CATEGORY 3, PROBABLY BENIGN FINDINGS. THE PALPABLE ABNORMALITY APPEARS TO CORRESPOND TO A SMALL HYPOECHOIC AREA JUST UNDER THE SKIN THAT MAY REPRESENT A SEBACEOUS CYST. I RECOMMEND THE PATIENT RETURN IN 2-3 MONTHS FOR A RIGHT BREAST ULTRASOUND. A MAMMOGRAM WILL NOT BE NECESSARY AT THAT TIME. 2. ATTEMPTS WILL BE MADE TO OBTAIN PRIOR OUTSIDE MAMMOGRAMS FOR COMPARISON. PLEASE RETURN TO ME FOR AN ADDENDUM WHEN THE OUTSIDE MAMMOGRAMS ARE AVAILABLE. 3. LEFT BREAST FINDINGS ARE BENIGN AND A REPEAT LEFT BREAST MAMMOGRAM IN RECOMMENDED IN 12 MONTHS. 4. THE FINDINGS AND RECOMMENDATIONS WERE DISCUSSED WITH THE PATIENT. IMPRESSION OF OVERALL ASSESSMENT: CATEGORY 3 - PROBABLY BENIGN. Dr. Malvin Steve ? REGISTERED DIET TECHNICIAN: ??LB3 TRANSCRIBE DATE/TIME: ??Nov 08 2014 ??4:16P RADIOLOGIST: ??MALVIN STEVE M.D. ??READ ON: ??Nov 08 2014 ??4:00P ORDERING DR: ZAHEER ALVARADO M.D. ? THIS DOCUMENT HAS BEEN ELECTRONICALLY SIGNED BY: ??MALVIN STEVE M.D. ??ON: ??Nov 08 2014 ??4:27P Attending: ??CHRISTIANO, ??ZAHEER Requesting: ??CHRISTIANO, ??ZAHEER Requesting Fax: ??[phone] Attending Fax: ??-- Attending ID: ??[id number] Requesting ID: ??[id number] Report To 1 ID: ??[id number] Report To 1 Name: ??MORALES, ??FUENTES Report To 1 FAX: ??[phone] Report To 2 ID: ?? Report To 2 Name: ??, ?? Report To 2 FAX: ??-- NextGen Order #: ?? Procedure Note Provider, MD Lynne - 09/27/2016 DATE OF EXAM: Nov 08 2014 3:41PM Acc#: [id number] [facility] 0083 - US Breast Limited R DIAGNOSIS: MAMM CLINICAL HISTORY: PALPABLE LUMP RESULT: \ EXAM: LIMITED RIGHT BREAST ULTRASOUND DATE: November 08, 2014 CLINICAL HISTORY: Palpable periareolar right breast lump in a patient with a family history of breast cancer TECHNIQUE: Multiple ultrasonographic images of the periareolar right breast and right axilla were obtained by the technologist and submitted for review. In addition, I personally performed physical examination and ultrasonographic evaluation of the periareolar right breast. Prior mammograms are not currently available for comparison. FINDINGS: Ultrasonographic evaluation of the periareolar aspect of the right breast yielded a small cluster of cysts at the 2:00 position approximately 1 cm from the nipple that measured 6.7 x 3.2 x 4.4 mm. There is no internal vascularity or adjacent hypervascularity. This cluster of cysts is surrounded by normal breast tissue. On physical exam, there was a pea-sized palpable lump just adjacent to the right nipple at the 2:00 position. This did not correspond to the ultrasonographic finding. Ultrasonographic evaluation of the area of palpable abnormality yields a subcentimeter ovoid hypodense area just under the skin. This may represent a sebaceous cyst, though no connection to the skin surface could be found. A few dilated ducts are seen in the periareolar region. Cursory evaluation of the right axilla yields no evidence of adenopathy. IMPRESSION: \ 1. BIRADS CATEGORY 3, PROBABLY BENIGN FINDINGS. THE PALPABLE ABNORMALITY APPEARS TO CORRESPOND TO A SMALL HYPOECHOIC AREA JUST UNDER THE SKIN THAT MAY REPRESENT A SEBACEOUS CYST. I RECOMMEND THE PATIENT RETURN IN 2-3 MONTHS FOR A RIGHT BREAST ULTRASOUND. A MAMMOGRAM WILL NOT BE NECESSARY AT THAT TIME. 2. ATTEMPTS WILL BE MADE TO OBTAIN PRIOR OUTSIDE MAMMOGRAMS FOR COMPARISON. PLEASE RETURN TO ME FOR AN ADDENDUM WHEN THE OUTSIDE MAMMOGRAMS ARE AVAILABLE. 3. LEFT BREAST FINDINGS ARE BENIGN AND A REPEAT LEFT BREAST MAMMOGRAM IN RECOMMENDED IN 12 MONTHS. 4. THE FINDINGS AND RECOMMENDATIONS WERE DISCUSSED WITH THE PATIENT. IMPRESSION OF OVERALL ASSESSMENT: CATEGORY 3 - PROBABLY BENIGN. Dr. Malvin Steve REGISTERED DIET TECHNICIAN: LB3 TRANSCRIBE DATE/TIME: Nov 08 2014 4:16P RADIOLOGIST: MALVIN STEVE M.D. READ ON: Nov 08 2014 4:00P ORDERING DR: ZAHEER ALVARADO M.D. THIS DOCUMENT HAS BEEN ELECTRONICALLY SIGNED BY: MALVIN STEVE M.D. ON: Nov 08 2014 4:27P Attending: ZAHEER ALVARADO Requesting: ZAHEER ALVARADO Requesting Attending Fax: -- Attending ID: [id number] Requesting ID: [id number] Report To 1 ID: [id number] Report To 1 Name: FUENTES NIELSEN Report To 1 FAX: [phone] Report To 2 ID: Report To 2 Name: , Report To 2 FAX: -- NextGen Order #: us Historical Provider MD BORJA US PROCEDURES Final R esult * DIAGNOSTIC MAMMOGRAM BILATERAL W AZ (11/08/2014 2:53 PM CDT) Anatomical Region Laterality Modality Breast Bilateral Mammography 11/08/2014 2:53 PM CDT Narrative 11/22/2014 9:30 AM CDT Acc#: ??[id number] [facility] 0031 - Diag Mamm W Az Bi DATE OF EXAM: ??Nov 08 2014 ??2:53PM DIAGNOSIS: ??MAMM CLINICAL HISTORY: ??BREAST MASS RESULT: ?\ EXAM: BILATERAL DIGITAL DIAGNOSTIC MAMMOGRAM WITH DIGITAL TOMOSYNTHESIS DATE: ??November 08, 2014 CLINICAL HISTORY: Palpable periareolar right breast lump in a patient with a family history of breast cancer TECHNIQUE: ??Bilateral full field digital mammography and digital tomosynthesis were performed in the CC, MLO and ML projections. Spot compression views and tomosynthesis images of the right breast were performed in the CC and MLO projections. The patient's prior mammograms were performed in [place], [place] and are not currently available for comparison. CAD was utilized. FINDINGS: The breast parenchyma is heterogeneously dense, which limits evaluation for masses. A palpable marker is seen adjacent to the nipple of the right breast. ??No discrete underlying nodule or mass is seen. No nodule or mass is seen in either breast. Two small calcifications in the right breast are benign in appearance. A ??right breast mole is marked. Ultrasonographic evaluation of the palpable area was recommended and performed. Ultrasonographic evaluation of the periareolar aspect of the right breast yielded a small cluster of cysts at the 2:00 position approximately 1 cm from the nipple that measured 6.7 x 3.2 x 4.4 mm. There is no internal vascularity or adjacent hypervascularity. This cluster of cysts is surrounded by normal breast tissue. On physical exam, there was a pea-sized palpable lump just adjacent to the right nipple at the 2:00 position. This did not correspond to the ultrasonographic finding. Ultrasonographic evaluation of the area of palpable abnormality yields a subcentimeter ovoid hypodense area just under the skin. This may represent a sebaceous cyst, though no connection to the skin surface could be found. A few dilated ducts are seen in the periareolar region. Cursory evaluation of the right axilla yields no evidence of adenopathy. ? IMPRESSION: ?\ 1. BIRADS CATEGORY 3, PROBABLY BENIGN FINDINGS. THE PALPABLE ABNORMALITY APPEARS TO CORRESPOND TO A SMALL HYPOECHOIC AREA JUST UNDER THE SKIN THAT MAY REPRESENT A SEBACEOUS CYST. I RECOMMEND THE PATIENT RETURN IN 2-3 MONTHS FOR A RIGHT BREAST ULTRASOUND. A MAMMOGRAM WILL NOT BE NECESSARY AT THAT TIME. 2. ATTEMPTS WILL BE MADE TO OBTAIN PRIOR OUTSIDE MAMMOGRAMS FOR COMPARISON. PLEASE RETURN TO ME FOR AN ADDENDUM WHEN THE OUTSIDE MAMMOGRAMS ARE AVAILABLE. 3. LEFT BREAST FINDINGS ARE BENIGN AND A REPEAT LEFT BREAST MAMMOGRAM IN RECOMMENDED IN 12 MONTHS. 4. THE FINDINGS AND RECOMMENDATIONS WERE DISCUSSED WITH THE PATIENT. IMPRESSION OF OVERALL ASSESSMENT: CATEGORY 3 - PROBABLY BENIGN. Dr. Malvin Steve ADDENDUM Prior bilateral mammograms performed April 18, 2014, February 08, 2013 and March 22, 2011 and a diagnostic left breast mammogram performed April 22, 2014 at [facility] are now available for comparison. ??CAD was utilized. The breast parenchyma is heterogeneously dense, which limits evaluation for masses. ??The parenchymal pattern is unchanged when compared to the prior exams. ??A few scattered calcifications are again seen and are benign in appearance. ??A right breast mole is marked. ?? IMPRESSION: 1. ??BIRADS CATEGORY 3, PROBABLY BENIGN FINDINGS. ??I RECOMMEND THE PATIENT RETURN IN TWO TO THREE MONTHS FOR A RIGHT BREAST ULTRASOUND TO EVALUATE STABILITY OF THE HYPOECHOIC PERIAREOLAR RIGHT BREAST NODULE. 2. ??LEFT BREAST FINDINGS ARE BENIGN AND A REPEAT LEFT BREAST MAMMOGRAM IS RECOMMENDED IN 12 MONTHS. ?? TECHNOLOGIST: ?? SCOTT BILLINGSLEY, TECHNOLOGIST MEDICAL IMAGING REGISTERED DIET TECHNICIAN: ??LB3 TRANSCRIBE DATE/TIME: ??Nov 08 2014 ??4:14P RADIOLOGIST: ??MALVIN STEVE M.D. ??READ ON: ??Nov 21 2014 ??4:29A ORDERING DR: ZAHEER ALVARADO M.D. ? THIS DOCUMENT HAS BEEN ELECTRONICALLY SIGNED BY: ??MALVIN STEVE M.D. ??ON: ??Nov 22 2014 ??9:30A ? REGISTERED DIET TECHNICIAN: ??LB3 TRANSCRIBE DATE/TIME: ??Nov 08 2014 ??4:14P RADIOLOGIST: ??MALVIN STEVE M.D. ??READ ON: ??Nov 21 2014 ??4:29A ORDERING DR: ZAHEER ALVARADO M.D. ? THIS DOCUMENT HAS BEEN ELECTRONICALLY SIGNED BY: ??MALVIN STEVE M.D. ??ON: ??Nov 22 2014 ??9:30A ? REGISTERED DIET TECHNICIAN: ??LB3 TRANSCRIBE DATE/TIME: ??Nov 08 2014 ??4:14P RADIOLOGIST: ??MAVLIN STEVE M.D. ??READ ON: ??Nov 21 2014 ??4:29A ORDERING DR: ZAHEER ALVARADO M.D. ? THIS DOCUMENT HAS BEEN ELECTRONICALLY SIGNED BY: ??MALVIN STEVE M.D. ??ON: ??Nov 22 2014 ??9:30A Attending: ??CHRISTIANO, ??ZAHEER Requesting: ??CHRISTIANO, ??ZAHEER Requesting Fax: ??[phone] Attending Fax: ??[phone] Attending ID: ??[id number] Requesting ID: ??[id number] Report To 1 ID: ??[id number] Report To 1 Name: ??MORALES, ??FUENTES Report To 1 FAX: ??[phone] Report To 2 ID: ?? Report To 2 Name: ??, ?? Report To 2 FAX: ??-- NextGen Order #: ?? Procedure Note Provider, MD Lynne - 09/27/2016 Acc#: [id number] [facility] 0031 - Diag Mamm W Az Bi DATE OF EXAM: Nov 08 2014 2:53PM DIAGNOSIS: MAMM CLINICAL HISTORY: BREAST MASS RESULT: \ EXAM: BILATERAL DIGITAL DIAGNOSTIC MAMMOGRAM WITH DIGITAL TOMOSYNTHESIS DATE: November 08, 2014 CLINICAL HISTORY: Palpable periareolar right breast lump in a patient with a family history of breast cancer TECHNIQUE: Bilateral full field digital mammography and digital tomosynthesis were performed in the CC, MLO and ML projections. Spot compression views and tomosynthesis images of the right breast were performed in the CC and MLO projections. The patient's prior mammograms were performed in [place], [place] and are not currently available for comparison. CAD was utilized. FINDINGS: The breast parenchyma is heterogeneously dense, which limits evaluation for masses. A palpable marker is seen adjacent to the nipple of the right breast. No discrete underlying nodule or mass is seen. No nodule or mass is seen in either breast. Two small calcifications in the right breast are benign in appearance. A right breast mole is marked. Ultrasonographic evaluation of the palpable area was recommended and performed. Ultrasonographic evaluation of the periareolar aspect of the right breast yielded a small cluster of cysts at the 2:00 position approximately 1 cm from the nipple that measured 6.7 x 3.2 x 4.4 mm. There is no internal vascularity or adjacent hypervascularity. This cluster of cysts is surrounded by normal breast tissue. On physical exam, there was a pea-sized palpable lump just adjacent to the right nipple at the 2:00 position. This did not correspond to the ultrasonographic finding. Ultrasonographic evaluation of the area of palpable abnormality yields a subcentimeter ovoid hypodense area just under the skin. This may represent a sebaceous cyst, though no connection to the skin surface could be found. A few dilated ducts are seen in the periareolar region. Cursory evaluation of the right axilla yields no evidence of adenopathy. IMPRESSION: \ 1. BIRADS CATEGORY 3, PROBABLY BENIGN FINDINGS. THE PALPABLE ABNORMALITY APPEARS TO CORRESPOND TO A SMALL HYPOECHOIC AREA JUST UNDER THE SKIN THAT MAY REPRESENT A SEBACEOUS CYST. I RECOMMEND THE PATIENT RETURN IN 2-3 MONTHS FOR A RIGHT BREAST ULTRASOUND. A MAMMOGRAM WILL NOT BE NECESSARY AT THAT TIME. 2. ATTEMPTS WILL BE MADE TO OBTAIN PRIOR OUTSIDE MAMMOGRAMS FOR COMPARISON. PLEASE RETURN TO ME FOR AN ADDENDUM WHEN THE OUTSIDE MAMMOGRAMS ARE AVAILABLE. 3. LEFT BREAST FINDINGS ARE BENIGN AND A REPEAT LEFT BREAST MAMMOGRAM IN RECOMMENDED IN 12 MONTHS. 4. THE FINDINGS AND RECOMMENDATIONS WERE DISCUSSED WITH THE PATIENT. IMPRESSION OF OVERALL ASSESSMENT: CATEGORY 3 - PROBABLY BENIGN. Dr. Malvin Steve ADDENDUM Prior bilateral mammograms performed April 18, 2014, February 08, 2013 and March 22, 2011 and a diagnostic left breast mammogram performed April 22, 2014 at [facility] are now available for comparison. CAD was utilized. The breast parenchyma is heterogeneously dense, which limits evaluation for masses. The parenchymal pattern is unchanged when compared to the prior exams. A few scattered calcifications are again seen and are benign in appearance. A right breast mole is marked. IMPRESSION: 1. BIRADS CATEGORY 3, PROBABLY BENIGN FINDINGS. I RECOMMEND THE PATIENT RETURN IN TWO TO THREE MONTHS FOR A RIGHT BREAST ULTRASOUND TO EVALUATE STABILITY OF THE HYPOECHOIC PERIAREOLAR RIGHT BREAST NODULE. 2. LEFT BREAST FINDINGS ARE BENIGN AND A REPEAT LEFT BREAST MAMMOGRAM IS RECOMMENDED IN 12 MONTHS. TECHNOLOGIST: SCOTT BILLINGSLEY, TECHNOLOGIST MEDICAL IMAGING REGISTERED DIET TECHNICIAN: LB3 TRANSCRIBE DATE/TIME: Nov 08 2014 4:14P RADIOLOGIST: MALVIN STEVE M.D. READ ON: Nov 21 2014 4:29A ORDERING DR: ZAHEER ALVARADO M.D. THIS DOCUMENT HAS BEEN ELECTRONICALLY SIGNED BY: MALVIN STEVE M.D. ON: Nov 22 2014 9:30A REGISTERED DIET TECHNICIAN: LB3 TRANSCRIBE DATE/TIME: Nov 08 2014 4:14P RADIOLOGIST: MALVIN STEVE M.D. READ ON: Nov 21 2014 4:29A ORDERING DR: ZAHEER ALVARADO M.D. THIS DOCUMENT HAS BEEN ELECTRONICALLY SIGNED BY: MALVIN STEVE M.D. ON: Nov 22 2014 9:30A REGISTERED DIET TECHNICIAN: LB3 TRANSCRIBE DATE/TIME: Nov 08 2014 4:14P RADIOLOGIST: MALVIN STEVE M.D. READ ON: Nov 21 2014 4:29A ORDERING DR: ZAHEER ALVARADO M.D. THIS DOCUMENT HAS BEEN ELECTRONICALLY SIGNED BY: MALVIN STEVE M.D. ON: Nov 22 2014 9:30A Attending: ZAHEER ALVARADO Requesting: ZAHEER ALVARADO Requesting Attending Attending ID: [id number] Requesting ID: [id number] Report To 1 ID: [id number] Report To 1 Name: FUENTES NIELSEN Report To 1 FAX: [phone] Report To 2 ID: Report To 2 Name: , Report To 2 FAX: -- NextGen Order #: Historical Provider MD BORJA MAMMO PROCEDURES Sheila l Result documented in this encounter Visit Diagnoses Diagnosis Lump or mass in breast documented in this encounter
--- OUTSIDE RECORDS SUMMARY | 2024-06-12 07:42 | XMS_ITS | Encounter Summary ---
Author Organization [facility] Healthcare Address [address] [place] [address] Care Team Providers Care Director Of Maternity Services Name Role Phone Unavailable Primary Care Provider Unavailabl e Encounter Details Date Type Department Care Team (Late st Contact Info) Description 04/16/2015 10:01 AM [facility] - 04/16/2015 11:59 PM [facility] Hospital Encounter [facility] CLINCONV Rosetta Villalta MD [address] [place] [address] Pain in right hip Social History Tobacco Use Types Packs/Day Years Used Date Smoking Tobacco: Never Assessed Comments Unknown Sex and Gender Information Value Date Recorded Sex Assigned at Not on file Legal Sex Female 1:32 PM [facility] [place] Gender Identity Not on file Sexual Orientation Not on file documented as of this encounter Plan of Treatment Not on file documented as of this encounter Procedures Procedure Name Priority Date/Time Associated Diagnosis Comments XR HIP 2+ VW UNILATERAL Routine 04/16/2015 11:32 AM [facility] documented in this encounter Results * XR Hip 2+ View Unilateral (04/16/2015 11:32 AM [facility]) Anatomical Region Laterality Modality Lower Extremities, Hip, Pelvis N/A R adiographic Imaging 04/16/2015 11:3 2 AM [facility] Narrative 04/16/2015 2:18 PM [facility] DATE OF EXAM: ??Apr 16 2015 11:32AM Acc#: ??[id number] ??WDX [id number] - XR Hip Min 2 Views R ?? DIAGNOSIS: ??RT HIP PAIN CLINICAL HISTORY: ?? RIGHT HIP PAIN RESULT: \ EXAMINATION: ??RIGHT HIP, TWO VIEWS. FINDINGS: ??No prior radiographic examination is available for comparison. There is no acute fracture or dislocation. ??There is mild right hip joint space narrowing superomedially. ??There is no significant osteophytosis. ??The osseous density is normal. ?? IMPRESSION: ?\ 1. ??NO ACUTE OSSEOUS ABNORMALITY. 2. ??MILD RIGHT HIP JOINT SPACE NARROWING. ?? WEB OPERATIONS ADMINISTRATOR: ??PW2 TRANSCRIBE DATE/TIME: ??Apr 16 2015 ??2:07P RADIOLOGIST: ??ELEANOR SHELLEY M.D. ??READ ON: ??Apr 16 2015 ??1:03P ORDERING DR: ROSETTA VILLALTA M.D. ? THIS DOCUMENT HAS BEEN ELECTRONICALLY SIGNED BY: ??ELEANOR SHELLEY M.D. ??ON: ??Apr 16 2015 ??2:18P Attending: ??MORALES, ??ROSETTA Requesting: ??MORALES, ??ROSETTA Requesting Fax: ??[phone] Attending Fax: ??[phone] Attending ID: ??[id number] Requesting ID: ??[id number] Report To 1 ID: ?? Report To 1 Name: ??, ?? Report To 1 FAX: ??-- Report To 2 ID: ?? Report To 2 Name: ??, ?? Report To 2 FAX: ??-- NextGen Order #: ?? Procedure Note Provider, MD Lynne - 09/27/2016 DATE OF EXAM: Apr 16 2015 11:32AM Acc#: [id number] WDX [id number] - XR Hip Min 2 Views R DIAGNOSIS: RT HIP PAIN CLINICAL HISTORY: RIGHT HIP PAIN RESULT: \ EXAMINATION: RIGHT HIP, TWO VIEWS. FINDINGS: No prior radiographic examination is available for comparison. There is no acute fracture or dislocation. There is mild right hip joint space narrowing superomedially. There is no significant osteophytosis. The osseous density is normal. IMPRESSION: \ 1. NO ACUTE OSSEOUS ABNORMALITY. 2. MILD RIGHT HIP JOINT SPACE NARROWING. WEB OPERATIONS ADMINISTRATOR: DANIELA TRANSCRIBE DATE/TIME: Apr 16 2015 2:07P RADIOLOGIST: ELEANOR SHELLEY M.D. READ ON: Apr 16 2015 1:03P ORDERING DR: ROSETTA VILLALTA M.D. THIS DOCUMENT HAS BEEN ELECTRONICALLY SIGNED BY: ELEANOR SHELLEY M.D. ON: Apr 16 2015 2:18P Attending: ROSETTA VILLALTA Requesting: ROSETTA VILLALTA Requesting Attending Attending ID: [id number] Requesting ID: [id number] Report To 1 ID: Report To 1 Name: , Report To 1 FAX: -- Report To 2 ID: Report To 2 Name: , Report To 2 FAX: -- NextGen Order #: Historical Provider MD BORJA XR PROCEDURES Final R esult documented in this encounter Visit Diagnoses Diagnosis Pain in right hip documented in this encounter
== END 2024-06-05 10:59 | disposition home or self-care (01) ==
PROVIDERS: PCP Family Medicine; Visit Provider Family Medicine
DX: K74.60 Unspecified cirrhosis of liver (principal); R19.7 Diarrhea, unspecified; N20.0 Calculus of kidney; R39.9 Unspecified symptoms and signs involving the genitourinary system; R31.9 Hematuria, unspecified; N32.89 Other specified disorders of bladder
CPT/HCPCS: 36415; 72131; 74176; 81001; 85025; 87086

== ENCOUNTER 2024-08-14 10:44 | Outpatient (CLI) | payer MEDICARE, SELFPAY ==
--- OUTSIDE RECORDS SUMMARY | 2024-08-14 12:09 | XMS_ITS | CONTINUITY OF CARE DOCUMENT ---
Author Name michellereshma anuradha Address Unknown Organization [facility] Address [address] [place] [address] Phone [phone] Care Team Providers Care Seconds Handler Name Role Phone Carlos Eduardo Roman MD Unavailable [phone] Oseas Crespo DO Unavailable [phone] [place] JOHN MD Unavailable PROBLEMS Condition Status Date Provider Notes CHEST PAIN active Carlos Eduardo Roman MD Hypertension active Carlos Eduardo Roman MD Dyslipidemia active Carlos Eduardo Roman MD Diabetes mellitus active Carlos Eduardo Roman MD Tobacco use quit active Carlos Eduardo Roman MD Family history of CAD active Carlos Eduardo Roman MD ENCOUNTERS Date Type Provider Location Encounter Diag nosis - In-person encounter Office Visit Carlos Eduardo Roman MD [facility] CHEST PAINHypertensionDyslipidemiaDiabetes mellitusTobacco use quitFamily history of CAD VITAL SIGNS Date Observation Value Provider Body Mass Index (Ratio) 26.52 kg/m2 Raul Gutiérrez blood pressure, resting Yes [place] een blood pressure, diastolic, left arm 86 mm [Hg] Berta blood pressure, systolic, left arm 120 mm [Hg] Reading blood pressure, diastolic, right arm 80 m [...] quit 2006 Berta boss cigarette use yes [place] smoking status Former smoker Berta [place] [...] Payer name Policy type / Coverage type [place] [employer] party ID [employer] MEDICARE COMPLETE HMO Other [id number] TREATMENT PLAN Date Name Performer Cardiology:Multiple [...] arsenio hardy, normal pharmacological stress myoview at [facility]. Will request her records. Will schedule an echo and CT coronary calcium score. We discussed cardiac cath depending on the results of her testing. Carlos Eduardo Roman MD Cardiology:Her [facility] ed medication list for this problem [...]
--- OUTSIDE RECORDS SUMMARY | 2024-08-14 12:09 | XMS_ITS | Referral Summary ---
Author Organization [facility] Address [address] [place] [address] Care Team Providers Care Bog Cutter Name Role Phone Baldo Bower MD Primary Care Provider [phone] Lacy Curiel DO Unavailable [phone] Encounters Date Type Department Care Team Description 07/10/2024 Telephone [facility] Scheduling [address] [place] [address] Pawan Patrick MD PhD Scheduling Appointments 06/19/2024 8:00 AM IT INVESTMENT/PORTFOLIO MANAGER - 06/19/2024 11:59 PM IT INVESTMENT/PORTFOLIO MANAGER Hospital Encounter [facility] MOB 1 DIAG IMG [address] [place] [address] Primary osteoarthritis of right hip Discharge Disposition: Discharge to home or self care 06/19/2024 10:00 AM IT INVESTMENT/PORTFOLIO MANAGER Office Visit [facility] Orthopedics and Sports Medicine [address] [place] [address] [address] [place] [phone] Lacy Curiel DO Aftercare following right hip joint replacement surgery (Primary Dx); Primary osteoarthritis of right hip from Last 3 Months Allergies Active Allergy [...] (two) times a day Med Name: MegaRed [place]-3 Krill oil Active meloxicam (MOBIC) 7.5 mg [...] 2 (two) times a day Active vitamins A,C,P-tbbr-qtumku (ICAPS) 4,296 mcg-226 mg-90 mg capsule Take [...] Active blood-glucose meter (Accu-Chek Guide Glucose Meter) [facility] ACCU-CHEK GUIDE W/DEVICE KIT 05/25/20 18 Active blood glucose diagnostic (Accu-Chek Guide test strips) strip by intravitreal route 05/25/20 18 Active blood glucose control high,low (Accu-Chek Guide L1-L2 Ctrl Nadja) solution by intravitreal route 05/25/20 18 Active glucosamine sulfate 500 mg capsule GLUCOSAMINE CAPSULE 09/07/19 19 Active lancets 30 gauge [facility] PHARMACIST CHOICE LANCETS 05/25/20 18 Active lancing device [facility] SIMPLE DIAGNOSTICS LANCING DEV 05/25/20 18 Active ciprofloxacin (CIPRO) 500 mg tablet Take 1 tablet (500 mg total) by mouth every 12 (twelve) hours 06/05/19 25 Active tamsulosin (FLOMAX) 0.4 mg extended release capsule Take 1 capsule (0.4 mg total) by mouth daily 06/05/19 25 Active traMADoL (ULTRAM) 50 mg tablet Take by mouth every 6 (six) hours as needed 06/05/19 25 Active Active Problems Problem Noted Date Diagnosed [...] Used Date Smoking Tobacco: Former Cigarettes 1.5 18.2 S tarted: 1986 Passive Smoke Exposure: Past Smokeless Tobacco: Never Tobacco Cessation:Counseling Given: Not Answered [facility] Utilities Answer Date Recorded In the past 12 months has [place], [place], oil, or water [employer] threatened to shut off services in your [...] often do you attend chur ch or catholic services? Never 03/26/2024 Do you belong to any clubs o r organizations such as yazidi groups, unions, fraternal or athletic groups, or [...] any time in the past 12 m [facility] [place], were you homeless or living in a senior care (including now)? No 03/26/2024 Personal Safety Answer Date Recorded Have you ever been in or are you currently in a harmful physical or emotional relationship or is someone making you feel afraid or unsafe? Denies 03/26/2024 Comments Unknown Sex and Gender Information Value Date Recorded Sex Assigned at Not on file Legal Sex Female 1:32 PM IT INVESTMENT/PORTFOLIO MANAGER Gender Identity Not on file Sexual Orientation Not on file Last Filed Vital Signs Vital Sign Reading Time Taken Comments Blood Pressure 108/71 03/27/2024 11:52 AM CDT Pulse 79 03/27/2024 11:52 AM CDT Temperature 36.6 C (97.9 F) 03/27/2024 11:52 AM CDT Respiratory Rate 18 03/27/2024 11:52 AM CDT Oxygen Saturation 96% 03/27/2024 11:52 AM CDT Inhaled Oxygen Concentration - - Weight 62.6 kg (138 lb) 03/26/2024 12:25 PM CDT Height 157.5 cm (5' 2 ) 03/26/2024 12:25 PM CDT Body Mass Index 25.24 03/26/2024 12:25 PM CDT Plan of Treatment Not on file Medical Devices Implanted Type Area Lug Loader Device Identifier Shelf Expiration Date Model / Serial / Lot Depuy [employer] Shell Acetabular Emsys Shl 3hole 48 [id number] - [id number] Implanted:Qty: 1 on 03/26/2024 by Lacy Curiel DO at [facility] Right: Hip [employer] [id number] 01/27/2034 [id number] / / [id number] [employer] Liner Acetabular Emsys Lnr Aox N 48x36 [id number] - [id number] Implanted:Qty: 1 on 03/26/2024 by Lacy Curiel DO at [facility] Right: Hip [employer] [id number] 12/27/2028 [id number] / / [id number] Dep[employer] [place] 6.5mm 20mm Acetabular Cancellous Screw Bone Sterile 1217--500 - [id number] Implanted:Qty: 1 on 03/26/2024 by Lacy Curiel DO at [facility] Right: Hip [employer] [id number] 11/26/2033 1217--500 / / [id number] Dep[employer] [place] 6.5mm 25mm Acetabular Cancellous Screw Bone Sterile 1217-500 - [id number] Implanted:Qty: 1 on 03/26/2024 by Lacy Curiel DO at [facility] Right: Hip [employer] [id number] 12/27/2033 121--500 / / [id number] [employer] Stem Femoral Hip Porous Proximal Collared Actis 95mm Titanium Standard Offset Size 0 [id number] - [id number] Implanted:Qty: 1 on 03/26/2024 by Lacy Curiel DO at [facility] Right: Hip [employer] [id number] 09/26/2032 [id number] / / [id number] [employer] Articul/Alpesh 36mm Cementless Hip +5mm 12/14 Taper Head Femoral Latex Free [id number] - [id number] Implanted:Qty: 1 on 03/26/2024 by Lacy Curiel DO at [facility] Right: Hip [employer] [id number] 11/26/2028 [id number] / / [id number] Procedures Procedure Name Priority Date/Time Associated Diagnosis Comments XR HIP RIGHT W PELVIS 2 OR 3 VIEWS Schedule Routine, Read Routine (OP Routine) 06/19/2024 10:15 AM IT INVESTMENT/PORTFOLIO MANAGER Primary osteoarthritis of right hip EGFR Routine 03/27/2024 5:32 AM CDT DEXA AXIAL SKELETON BONE DENSITY 1 OR [...] W Pelvis Min 2 To 3 Views (06/19/2024 10:15 AM IT INVESTMENT/PORTFOLIO MANAGER) Anatomical Region Laterality Modality Lower Extremities, Hip, Pelvis Right C omputed Radiography 06/19/2024 8:19 PM IT INVESTMENT/PORTFOLIO MANAGER Narrative 06/19/2024 8:20 PM IT INVESTMENT/PORTFOLIO MANAGER EXAM DESCRIPTION: XR HIP RIGHT 2 OR 3 VIEWS W PELVIS REASON FOR STUDY: Right Hip Pain 3 month follow up, no complaints of pain TECHNIQUE: 2 radiographic view(s) of the pelvis and right hip . COMPARISON: 05/08/2024 FINDINGS: BONES/JOINTS: There is no acute fracture, malalignment or osseous abnormality. Degenerative narrowing of the left hip joint is stable. Right hip arthroplasty appears well seated. SOFT TISSUES: Within normal limits. IMPRESSION: Degenerative changes left hip. No acute abnormality. THIS IS AN ELECTRONICALLY VERIFIED FINAL REPORT 06/19/2024 8:20 PM - Electronically signed by Elias Wong M.D. KT: VICTORINO Report ID: [id number] Reading Location: [id number] Procedure Note Elias Wong MD - 06/19/2024 EXAM DESCRIPTION: XR HIP RIGHT 2 OR 3 VIEWS W PELVIS REASON FOR STUDY: Right Hip Pain 3 month follow up, no complaints of pain TECHNIQUE: 2 radiographic view(s) of the pelvis and right hip . COMPARISON: 05/08/2024 FINDINGS: BONES/JOINTS: There is no acute fracture, malalignment orosseous abnormality. Degenerative narrowing of the left hip joint is stable.Right hip arthroplasty appears well seated. SOFT TISSUES: Within normal limits. IMPRESSION: Degenerative changes left hip. No acute abnormality. THIS IS AN ELECTRONICALLY VERIFIED FINAL REPORT 06/19/2024 8:20 PM - Electronically signed by Elias Wong M.D. KT: VICTORINO Report ID: [id number] Reading Location: [id number] Lacy Curiel DO IMG XR PROCEDURES Final Result * eGFR (03/27/2024 5:32 AM CDT) eGFR >90 >=60 mL/min/1. 73 m2 Comment: Interpretive Data Reference Interval Normal >/= 90 mL/min/1.73m2 Mildly decreased* 60 - 89 mL/min/1.73m2 Mildly to moderately decreased 45 - 59 mL/min/1.73m2 Moderately to severely decreased 30 - 44 mL/min/1.73m2 Severely decreased 15 - 29 mL/min/1.73m2 Kidney Failure < 15 mL/min/1.73m2 *Relative to young adult level Estimated glomerular [...] LAB BLOOD ORDERABLES Final Resul t [facility] [address] [facility] Department [place] [address] * Dexa Axial Skeleton Bone Density 1 [...] signed by: Camille Rodriges M.D. Freddie Stanley [facility] DXA PROCEDURES Final Result * Screening Mammogram Bilateral W Az (03/19/2020 11:32 AM CDT) Anatomical Region Laterality Modality Breast Bilateral Mammography 03/19/2020 1:54 PM CDT Impressions 03/19/2020 2:08 PM CDT BI-RADS Category 2, benign. Annual screening mammography. Electronically signed by: Camille Rodriges M.D. Narrative [...] Relevant to Health Maintenance Insurance MEDICARE SOLUTIONS [place] [id number] MDCR HMO REF [place] [id number] MEDICARE SOLUTIONS MEDICARE SOLUTIONS Advance Directives For more information, please contact: [phone] * Full Code (Latest Code Status on File) Date Activated Date Inactivated Comments 03/26/2024 11:21 AM 03/27/2024 4:55 PM Care Teams Bog Cutter Relationship Specialty Start Date End Date Baldo Bower MD PCP - General Family Practice 11/03/23 Lacy Curiel DO [address] [place] [address] Consulting Physician Orthopedic Surgery 03/27/24
--- OUTSIDE RECORDS SUMMARY | 2024-08-14 12:10 | XMS_ITS | Clinical Summary ---
Author Organization [facility] Address [address] [place] [address] Care Team Providers Care Sales Training Representative Name Role Phone Baldo Bower MD Primary Care Provider [phone] Lacy Curiel DO Unavailable [phone] Allergies Active Allergy Reactions Criticality Noted [...] (two) times a day Med Name: MegaRed [place]-3 Krill oil Active meloxicam (MOBIC) 7.5 mg [...] 2 (two) times a day Active vitamins A,C,B-pyrx-zmfpqq (ICAPS) 4,296 mcg-226 mg-90 mg capsule Take [...] Active blood-glucose meter (Accu-Chek Guide Glucose Meter) [facility] ACCU-CHEK GUIDE W/DEVICE KIT 05/25/20 18 Active blood glucose diagnostic (Accu-Chek Guide test strips) strip by intravitreal route 05/25/20 18 Active blood glucose control high,low (Accu-Chek Guide L1-L2 Ctrl Nadja) solution by intravitreal route 05/25/20 18 Active glucosamine sulfate 500 mg capsule GLUCOSAMINE CAPSULE 09/07/19 19 Active lancets 30 gauge [facility] PHARMACIST CHOICE LANCETS 05/25/20 18 Active lancing device [facility] SIMPLE DIAGNOSTICS LANCING DEV 05/25/20 18 Active [...] Type Department Care Team Description 07/10/2024 Telephone [facility] Scheduling [address] [place] [address] Pawan Patrick MD PhD Scheduling Appointments 06/19/2024 10:00 AM POWER TOOL REPAIRER Office Visit [facility] Medical Group Orthopedics and Sports Medicine [facility] [facility] [address] [place] [address] Lacy Curiel, Aftercare following right hip joint replacement surgery (Primary Dx); Primary osteoarthritis of right hip 06/19/2024 8:00 AM POWER TOOL REPAIRER - 06/19/2024 11:59 PM POWER TOOL REPAIRER Hospital Encounter [facility] MOB [address] [place] [address] Primary osteoarthritis of right hip Discharge Disposition: Discharge to home or self care from Last 3 Months Surgical History Surgery Date Site/Laterality Comments TONSILLECTOMY as a child FLUORO GUIDED INJECTION HIP RIGHT 06/01/2023 Right FLUORO GUIDED INJECTION HIP RIGHT 11/10/2023 Right EYE SURGERY Bilateral cataracts OOPHERECTOMY 1986 CHOLECYSTECTOMY HYSTERECTOMY and 1 ovary removed COLONOSCOPY 2019 Medical History Medical History Date Comments Hypercholesterolemia High choles terol; Comments: KSA 05/13/2015 - Hypertension Hypertension Gastric reflux Cancer (HCC) basal cell left leg 2010's Diabetes mellitus (HCC) Osteoarthritis Skin cancer, basal cell 2012 LEFT THI GH History of seizures x [...] Tobacco: Never Tobacco Cessation:Counseling Given: Not Answered [facility] Utilities Answer Date Recorded In the past [...] often do you attend chur ch or anglican services? Never 03/26/2024 Do you belong to any clubs o r organizations such as mandaeism groups, unions, fraternal or athletic groups, or [...] time in the past 12 m [place], were you homeless or living in a [...] on file Legal Sex Female 1:32 PM POWER TOOL REPAIRER Gender Identity Not on file Sexual Orientation [...] 02/19/2020, 11/2017 Medical Devices Implanted Type Area Diversified Crops Ii Farmworker Device Identifier Shelf Expiration Date Model / Serial / Lot Depuy Orthopa[employer] Shell Acetabular Emsys Shl 3hole 48 [id number] - [id number] Implanted:Qty: 1 on 03/26/2024 by Lacy Curiel DO at [facility] Right: Hip [employer] Inc [id number] 01/27/2034 [id number] / / [id number] Dep[employer] Liner Acetabular Emsys Lnr Aox N 48x36 [id number] - [id number] Implanted:Qty: 1 on 03/26/2024 by Lacy Curiel DO at [facility] Right: Hip [employer] [id number] 12/27/2028 [id number] / / [id number] Depuy [employer] Inc [place] 6.5mm 20mm Acetabular Cancellous Screw Bone Sterile 1217-20-500 - [id number] Implanted:Qty: 1 on 03/26/2024 by Lacy Curiel DO at [facility] Right: Hip [employer]uy [employer] Inc [id number] 11/26/2033 1217-20-500 / / [id number] Depuy [employer] Inc [place] 6.5mm 25mm Acetabular Cancellous Screw Bone Sterile 1217-25-500 - [id number] Implanted:Qty: 1 on 03/26/2024 by Lacy Curiel DO at [facility] Right: Hip [employer]uy [employer] Inc [id number] 12/27/2033 1217-25-500 / / [id number] Depuy [employer] Stem Femoral Hip Porous Proximal Collared Actis 95mm Titanium Standard Offset Size 0 [id number] - [id number] Implanted:Qty: 1 on 03/26/2024 by Lacy Curiel DO at [facility] Right: Hip [employer] Inc [id number] 09/26/2032 [id number] / / [id number] Depuy [employer] Articul/Alpesh 36mm Cementless Hip +5mm 12/14 Taper Head Femoral Latex Free [id number] - [id number] Implanted:Qty: 1 on 03/26/2024 by Lacy Curiel DO at [facility] Right: Hip [employer]uy [employer] Inc [id number] 11/26/2028 [id number] / / [id number] Procedures Procedure Name Priority Date/Time Associated Diagnosis Comments XR HIP RIGHT W PELVIS 2 OR 3 VIEWS Schedule Routine, Read Routine (OP Routine) 06/19/2024 10:15 AM POWER TOOL REPAIRER Primary osteoarthritis of right hip EGFR Routine [...] 2 To 3 Views (06/19/2024 10:15 AM POWER TOOL REPAIRER) Anatomical Region Laterality Modality Lower Extremities, Hip, Pelvis Right C omputed Radiography 06/19/2024 8:19 PM POWER TOOL REPAIRER Narrative 06/19/2024 8:20 PM POWER TOOL REPAIRER EXAM DESCRIPTION: XR HIP RIGHT 2 OR [...] Elias Wong M.D. KT: VICTORINO Report ID: [id number] Reading Location: [id number] Procedure Note Elias Wong MD - 06/19/2024 [...] Elias Wong M.D. KT: VICTORINO Report ID: [id number] Reading Location: [id number] Lacy Curiel DO IMG XR PROCEDURES [...] BARRY LAB BLOOD ORDERABLES [facility] [address] [facility] Department [place] [address] * Dexa Axial Skeleton Bone Density 1 [...] signed by: Camille Rodriges M.D. Freddie Stanley [facility] DXA PROCEDURES Final Result * Screening Mammogram [...] Relevant to Health Maintenance Insurance MEDICARE SOLUTIONS [facility] MEDICARE Address: [address] [address] [facility] MDCR HMO REF [facility] Address: [address] [address] [place] [address] Advance Directives For more information, please contact: [phone] * Full Code (Latest Code Status on File) Date Activated Date Inactivated Comments 03/26/2024 11:21 AM 03/27/2024 4:55 PM Care Teams Sales Training Representative Relationship Specialty Start Date End Date Baldo Bower MD PCP - General Family Practice 11/03/23 Lacy Curiel DO [address] [facility] [address] Consulting Physician Orthopedic Surgery 03/27/24
--- OUTSIDE RECORDS SUMMARY | 2024-08-14 12:10 | XMS_ITS | Clinical Summary ---
Author Organization [facility] Address [address] [place] [address] Care Team Providers Care Conditioning Room Worker Name Role Phone Unavailable Primary Care Provider [...] (1 - 1-dose 75+ series) 2027 Meningococcal B Vaccine Aged Out No l onger eligible based on patient's age to complete this topic Meningococcal Vaccine Aged Out No checo gerardo eligible based on patient's age to complete this topic RSV Immunizations Under 20 Months Aged Out No longer eligible b ased on patient's age to complete this topic
[2024-08-14 12:14] LABS: Alanine Aminotransferase 25 U/L (6-35); Albumin Level 4.5 g/dL (3.5-5.1); Alkaline Phosphatase 52 U/L (38-126); Anion Gap 12 mmol/L (4-12); Aspartate Amino Transferase 26 U/L (14-36); Bilirubin,Total 0.4 mg/dL (0.2-1.3); Blood Urea Nitrogen 14 mg/dL (7-17); Calcium 9.7 mg/dL (8.4-10.2); Carbon Dioxide 26 mmol/L (22-30); Chloride 103 mmol/L (98-107); Cholesterol 134 mg/dL (0-200); Estimated Glomerular Filt Rate > 60; Glucose 103 mg/dL (65-110); HDL Direct 39 mg/dL; Potassium 3.8 mmol/L (3.4-5.0); Sodium 141 mmol/L (137-145); Triglycerides 242 mg/dL (<150)
[2024-08-14 12:25] LABS: LDL Cholesterol Direct 60 mg/dL
== END 2024-08-14 10:45 | disposition home or self-care (01) ==
PROVIDERS: PCP Family Medicine; Visit Provider Family Medicine
DX: E78.5 Hyperlipidemia, unspecified (principal); Z83.49 Family history of other endocrine, nutritional and metabolic diseases; E11.9 Type 2 diabetes mellitus without complications; D64.9 Anemia, unspecified; D50.9 Iron deficiency anemia, unspecified
CPT/HCPCS: 36415; 80053; 80061

== ENCOUNTER 2024-09-24 16:06 | Outpatient (CLI) | payer MEDICARE, SELFPAY ==
--- NOTE | ~2024-09-24 | XR_ITS ---
2 views of the right clavicle CLINICAL HISTORY: Other specified disorder of bone FINDINGS: No fracture or dislocation seen. There is moderate AC joint degenerative change. Glenohumer al joint intact. Soft tissues are unremarkable. IMPRESSION: No fracture or dislocation. Moderate AC joint degenerative change. Reviewed, dictated and finalized at location .
--- NOTE | ~2024-09-24 | XR_ITS ---
Cervical Spine: AP, lateral, open-mouth views Clinical History: Pain Findings: There is mild reversal of the normal cervical lordosis. There is 2 mm anterolisthesis of C2 over C3. There is advanced degenerative disc narrowing from C4 through C7. There is moderate to adva nced facet arthropathy. No instability evident on flexion or extension. Pre-vertebral soft tissues ar e unremarkable. Impression: 2 mm anterolisthesis of C2 over C3. No instability evident. Advanced degenerative spondylosis. Reviewed, dictated and finalized at location M. Impression: 2 mm anterolisthesis of C2 over C3. No instability evident. Advanced degenerative spondylosis.
[2024-09-24 17:00] LABS: Magnesium 1.8 mg/dL (1.6-2.3)
[2024-09-24 17:18] LABS: Vitamin D 25 Hydroxy 74.4 ng/mL
[2024-09-24 17:37] LABS: Add Urine Microscopic? NO; Appearance Urine Clear (Clear); Bilirubin Urine Negative (Negative); Blood Urine Negative (Negative); Color Urine Yellow (Yellow); Glucose Urine UA Negative (Negative); Ketones Urine Negative (Negative); Leukocyte Esterase Ur Negative LEU/UL (Negative); Nitrate Urine Negative (Negative); Protein Urine Negative (Negative); Specific Grav Ur 1.017 (1.001-1.035); Urobilinogen Urine 0.2 mg/dL (<2.0); pH Urine 5.5 (5.0-9.0)
--- OUTSIDE RECORDS SUMMARY | 2024-09-24 18:07 | XMS_ITS | CONTINUITY OF CARE DOCUMENT ---
Author Name michellereshma rhondatresa Address Unknown Organization [facility] Address [address] [address] [place] [address] Phone [phone] Care Team Providers Care Personal Service Workers Name Role Phone Carlos Eduardo Roman MD Unavailable [phone] Oseas Crespo DO Unavailable [phone] NAVA JOHN MD Unavailable [phone] PROBLEMS Condition Status Date Provider Notes CHEST [...] encounter Office Visit Carlos Eduardo Roman MD [place] [facility] CHEST PAINHypertensionDyslipidemiaDiabetes mellitusTobacco use quitFamily history of CAD VITAL SIGNS Date Observation Value Provider Body Mass Index (Ratio) 26.52 kg/m2 Raul Gutiérrez blood pressure, resting Yes [place] blood pressure, diastolic, left arm 86 mm [Hg] Berta blood pressure, systolic, left arm 120 mm [Hg] [place] blood pressure, diastolic, right arm 80 m [...] 04/05/2018 PHARMACIST CHOICE LANCETS active 7 Berta hSoream #100, 90 days supply, Filled 05/25/2018 SIMPLE [...] quit 2006 Berta boss cigarette use yes [place] smoking status Former smoker Berta [place] [...] Payer name Policy type / Coverage type [place] [employer] party ID UHC MEDICARE COMPLETE HMO Other [id number] TREATMENT PLAN Date Name Performer Cardiology:Multiple [...] arsenio hardy, normal pharmacological stress myoview at [facility]. Will request her records. Will schedule an echo and CT coronary calcium score. We discussed cardiac cath depending on the results of her testing. Carlos Eduardo Roman MD Cardiology:Her [facility] ed medication list for this problem includes: [...]
--- OUTSIDE RECORDS SUMMARY | 2024-09-24 18:08 | XMS_ITS | Referral Summary ---
Author Organization [facility] Address [address] [place] [address] Care Team Providers Care Enamel Drier Name Role Phone Baldo Bower MD Primary Care Provider [phone] Lacy Curiel DO Unavailable [phone] Encounters Date Type Department Care Team Description 09/13/2024 Orders Only [facility] Medical Group Orthopedics and Sports Medicine [address] [facility] [address] [place] [address] Lacy Curiel DO Aftercare following right hip joint replacement surgery (Primary Dx) 09/12/2024 Telephone [facility] Medical [facility] Orthopedics and Sports Medicine [address] [place] [address] [place] [phone] Lacy Curiel DO dental appointment 08/31/2024 Results Follow-Up Neurology Pawan Patrick MD PhD 08/21/2024 12:05 PM CDT Lab [facility] ([facility]) [address] [place] [phone] Memory change 08/21/2024 9:00 AM CDT Office Visit [facility] Critical access hospital[facility] 6th [place] [address] [place] [address] Pawan Patrick MD PhD Memory change (Primary Dx); Family history of Alzheimer's disease 07/10/2024 Telephone [facility] Scheduling [address] [place] [address] Pawan Patrick MD PhD Scheduling Appointments from Last 3 Months Allergies Active Allergy [...] (two) times a day with meals 8 Active lisinopriL (PRINIVIL,ZESTRI L) 10 mg tablet Take 1 tablet (10 mg total) by mouth daily 3 Active atenoloL (TENORMIN) 25 mg tablet Take 1 tablet (25 mg total) by mouth nightly [address] (PROTONIX) 40 mg EC tablet Take 1 tablet (40 mg total) by mouth 2 (two) times a day Active fluticasone propionate (FLONASE ALLERGY RELIEF NASL) Administer 1 spray into affected nostril(s) daily Active doxycycline (PERIOSTAT) 20 mg tabletIndication s:Other (complete [...] (two) times a day Med Name: MegaRed Davis-3 Krill oil Active meloxicam (MOBIC) 7.5 mg tablet Take 1 tablet (7.5 mg total) by mouth 2 (two) times a day Active acetaminophen ER (TYLENOL) 650 mg 8 hr tablet Take 2 tablets (1,300 mg total) by mouth 2 (two) times a day Active UNABLE TO FIND Take 1 each by mouth daily Med Name: Qunol ultra CoQ10 100 mg Active glucosamine-anmol droitin 250-200 mg tablet Take 1 tablet by mouth 2 (two) times a day Active valACYclovir (VALTREX) 500 mg tabletIndication s:Chronic Suppression,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, nose and mouth Take 1 tablet (500 mg total) by mouth daily Active cholecalciferol (VITAMIN D-3) 2000 unit tablet Take 1 tablet (2,000 Units total) by mouth 2 (two) times a day Active vitamins A,C,D-oflp-xhhoz r (ICAPS) 4,296 mcg-226 mg-90 mg capsule Take 1 capsule by mouth 2 (two) times a day Active loratadine 10 mg capsule Take 1 tablet by mouth nightly Active LORazepam (ATIVAN) 0.5 mg tablet Take 1 tablet (0.5 mg total) by mouth every 8 (eight) hours as needed for anxiety Active Cholestyramine Light 4 gram powder 4 Active docusate sodium (COLACE) 100 mg capsuleIndicatio ns:constipation Take 1 capsule (100 mg total) by mouth 2 (two) times a day 60 capsule 4 Active calcium carbonate-vitami n D3 (Calcium 500 + D) 1,250 mg (500 mg elemental)-400 unit chewable tablet CALCIUM + D TABLET 9 Active traMADoL (ULTRAM) 50 mg tablet Take by mouth every 6 (six) hours as needed 5 Active clindamycin (CLEOCIN) 300 mg capsule Take 2 capsules (600 mg total) by mouth as needed (take 2 tablets before dental procedures and cleanings) 2 capsule 5 Active clindamycin (CLEOCIN) 300 mg capsuleIndicatio ns:Aftercare following right hip joint replacement surgery Take 2 capsules (600 mg total) by mouth once for 1 dose Take both tablets 1 hour prior to dental procedure or cleaning 2 capsule 5 09/14/19 25 Active Problems Problem Noted Date Diagnosed Date Memory change 08/31/2024 Primary osteoarthritis of right hip 02/23/2024 Chest pain 09/06/2018 Diabetes mellitus 09/06/2018 Dyslipidemia 09/06/2018 Hypertension 09/06/2018 Tobacco dependence syndrome 09/06/2018 Abnormal mammogram 11/23/2016 Mass of breast 11/23/2016 Disorder of sacrococcygeal spine 03/19/2016 Overview (09/03/2016): Sacrococcygeal disorders, not elsewhere classified Piriformis syndrome 03/19/2016 Overview (09/03/2016): Piriformis syndrome, right Convulsions Social History Tobacco Use Types Packs/Day Years Used Date Smoking Tobacco: Former Cigarettes 1.5 18.3 S tarted: 1986 Passive Smoke Exposure: Past Smokeless Tobacco: Never Tobacco Cessation:Counseling Given: Not Answered [facility] Utilities Answer Date Recorded In the past 12 months has [employer], [employer], oil, or water [employer] threatened to shut off services in your [...] often do you attend chur ch or zoroastrianism services? Never 03/26/2024 Do you belong to any clubs o r organizations such as latter-day groups, unions, fraternal or athletic groups, or [...] were you homeless or living in a mcc (including now)? No 03/26/2024 Personal Safety Answer Date Recorded Have you ever been in or are you currently in a harmful physical or emotional relationship or is someone making you feel afraid or unsafe? 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 Gender Identity Not on file Sexual Orientation Not on file Last Filed Vital Signs Vital Sign Reading Time Taken Comments Blood Pressure 121/81 08/21/2024 8:52 AM CDT Pulse 76 08/21/2024 8:52 AM CDT Temperature 36.6 C (97.9 F) 03/27/2024 11:52 AM CDT Respiratory Rate 18 03/27/2024 11:52 AM CDT Oxygen Saturation 96% 03/27/2024 11:52 AM CDT Inhaled Oxygen Concentration - - Weight 62.6 kg (138 lb) 08/21/2024 8:52 AM CDT Height 157.5 cm (5' 2 ) 08/21/2024 8:52 AM CDT Body Mass Index 25.24 08/21/2024 8:52 AM CDT Plan of Treatment Not on file Medical Devices Implanted Type Area Regulatory Compliance Manager Device Identifier Shelf Expiration Date Model / Serial / Lot Depuy [employer] Shell Acetabular Emsys Shl 3hole 48 [id number] - [id number] Implanted:Qty: 1 on 03/26/2024 by Lacy Curiel DO at [facility] Right: Hip [employer] [id number] 01/27/2034 [id number] / / [id number] [employer] Liner Acetabular Emsys Lnr Aox N 48x36 [id number] - [id number] Implanted:Qty: 1 on 03/26/2024 by Lacy Curiel DO at [facility] Right: Hip [employer] [id number] 12/27/2028 [id number] / / [id number] Dep[employer] [place] 6.5mm 20mm Acetabular Cancellous Screw Bone Sterile 1217-- - [id number] Implanted:Qty: 1 on 03/26/2024 by Lacy Curiel DO at [facility] Right: Hip [employer] [id number] 11/26/2033 121--500 / / [id number] [employer] [place] 6.5mm 25mm Acetabular Cancellous Screw Bone Sterile 1217- - [id number] Implanted:Qty: 1 on 03/26/2024 by Lacy Curiel DO at [facility] Right: Hip [employer] [id number] 12/27/2033 1217--500 / / [id number] Dep[employer] Stem Femoral Hip Porous Proximal Collared Actis 95mm Titanium Standard Offset Size [id number] - [id number] Implanted:Qty: 1 on 03/26/2024 by Lacy Curiel DO at [facility] Right: Hip [employer] [id number] 09/26/2032 [id number] / / [id number] Dep[employer] Articul/Alpesh 36mm Cementless Hip +5mm 12/14 Taper Head Femoral Latex Free [id number] - [id number] Implanted:Qty: 1 on 03/26/2024 by Lacy Curiel DO at [facility] Right: Hip [employer] [id number] 11/26/2028 [id number] / / [id number] Procedures Procedure Name Priority Date/Time Associated Diagnosis Comments VITAMIN B12 Routine 08/21/2024 11:17 AM CDT Memory change TSH Routine 08/21/2024 11:17 AM CDT Memory change EGFR Routine 03/27/2024 5:32 AM CDT DEXA AXIAL SKELETON BONE DENSITY 1 OR MORE SITES Schedule Routine, Read Routine (OP Routine) 03/19/2020 12:14 PM CDT Age related osteoporosis, unspecified pathological fracture presence SCREENING MAMMOGRAM BILATERAL W KRUPA Schedule Routine, Read Routine (OP Routine) 03/19/2020 11:32 AM CDT Encounter for screening for malignant neoplasm of breast, unspecified screening modality from Last 3 Months or Most Recently Relevant to Health Maintenance Results * TSH (08/21/2024 11:17 AM CDT) Thyroid Stimulating Hormone 1.22 0.30 - 4.20 mcIUnit/mL Blood 08/21/2024 11:1 7 AM CDT 08/21/2024 11:58 AM CDT Pawan Patrick MD PhD LAB BLOOD ORDERABLES F inal Result Performing Organization Address [facility] Co de Phone Number [facility] [place] [address] * Vitamin B12 (08/21/2024 11:17 AM CDT) Vitamin B12 283 230 - 1,250 pg/mL Blood 08/21/2024 11:1 7 AM CDT 08/21/2024 11:58 AM CDT Pawan Patrick MD PhD LAB BLOOD ORDERABLES F inal Result Performing Organization Address City/[facility]/ZIP Co de Phone Number [facility] [place] [address] * eGFR (03/27/2024 5:32 AM CDT) eGFR [...] LAB BLOOD ORDERABLES Final Resul t [facility] [address] [facility] [place] [address] * Dexa Axial Skeleton Bone Density 1 [...] Camille Rodriges M.D. Freddie Stanley DO [facility] DXA PROCEDURES Final Result * Screening Mammogram Bilateral W Krupa (03/19/2020 11:32 AM CDT) Anatomical Region Laterality [...] subjected to R2/CAD analysis. Freddie Stanley DO [facility] MAMMO PROCEDURES Final Resul t from Last 3 Months or Most Recently Relevant to Health Maintenance Insurance [facility] MEDICARE ADVANTAGE [facility] MDCR HMO REF Advance Directives For more information, please contact: [phone] * Full Code (Latest Code Status on File) Date Activated Date Inactivated Comments 03/26/2024 11:21 AM 03/27/2024 4:55 PM Care Teams Enamel Drier Relationship Specialty Start Date End Date Baldo Bower MD PCP - General Family Practice 11/03/23 Lacy Curiel DO [address] [place] [address] Consulting Physician Orthopedic Surgery 03/27/24
--- OUTSIDE RECORDS SUMMARY | 2024-09-24 18:08 | XMS_ITS | Clinical Summary ---
Author Organization [facility] Address [address] [place] [address] Care Team Providers Care Hydraulics Teacher Name Role Phone Unavailable Primary Care Provider [...] 1 - Tdap) 1971 Mammogram Screening 1992 Pneumococcal Vaccine: 50+ Ye ars (1 of 1 - PCV) 2002 Zoster Vaccines (1 of 2) 2002 Dexa Scan (General) 2017 COVID-19 Vaccine ( - 2023-2 5 season) 2024 RSV Immunization or 60+ Years (1 - 1-dose 75+ series) 2027 Meningococcal B Vaccine Aged Out No l onger eligible based on patient's age to complete this topic Meningococcal Vaccine Aged Out No checo gerardo eligible based on patient's age to complete this topic RSV Immunizations Under 20 Months Aged Out No longer eligible based on patient's age to complete this topic
--- OUTSIDE RECORDS SUMMARY | 2024-09-24 18:08 | XMS_ITS | Clinical Summary ---
Author Organization [facility] Address [address] [place] [address] Care Team Providers Care Galvanometer Assembler Name Role Phone Baldo Bower MD Primary Care Provider [phone] Lacy Curiel DO Unavailable [phone] Allergies Active Allergy Reactions Criticality Noted [...] (two) times a day Med Name: MegaRed [place]-3 Krill oil Active meloxicam (MOBIC) 7.5 mg [...] 2 (two) times a day Active vitamins A,C,U-pntn-xddis r (ICAPS) 4,296 mcg-226 mg-90 mg capsule [...] procedure or cleaning 2 capsule 5 09/14/19 Active Problems Problem Noted Date Diagnosed Date [...] Department Care Team Description 09/13/2024 Orders Only [facility] Medical Group Orthopedics and Sports Medicine [facility] [facility] [address] [place] [phone] Lacy Curiel DO Aftercare following right hip joint replacement surgery (Primary Dx) 09/12/2024 Telephone [facility] Medical [facility] Orthopedics and Sports Medicine [facility] [facility] [address] [place] [address] Lacy Curiel DO dental appointment 08/31/2024 Results Follow-Up Neurology Pawan Patrick MD PhD 08/21/2024 12:05 PM CDT Lab [facility] Advanced [facility] ([facility]) [address] [place] [phone] Memory change 08/21/2024 9:00 AM CDT Office Visit [facility] [address] [facility] Advanced Medicine 6th [place] [address] [place] [address] Pawan Patrick MD PhD Memory change (Primary Dx); Family history of Alzheimer's disease 07/10/2024 Telephone [facility] Scheduling [address] [phone] Pawan Patrick MD PhD Scheduling Appointments from Last 3 Months Surgical History Surgery [...] reflux Cancer (HCC) basal cell left leg 2009's Diabetes mellitus (HCC) Osteoarthritis Skin cancer, basal [...] Tobacco: Never Tobacco Cessation:Counseling Given: Not Answered [facility] Utilities Answer Date Recorded In the past [...] any time in the past 12 m [facility], were you homeless or living in a nursing home (including now)? No 03/26/2024 Personal Safety Answer Date Recorded Have you ever been in or are you currently in a harmful physical or emotional relationship or is someone making you feel afraid or unsafe? 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 Gender Identity Not on file Sexual Orientation [...] 08/21/2024 8:52 AM CDT Plan of Treatment Health Maintenance Due [...] Density Scan 03/19/2022 03/19/2020, 01/12/2018 Influenza Vaccine (Season Ended) 2025 02/19/2020, 04/05/2019, 03/01/2018, Additional history exists Fall Risk Assessment 03/27/2025 03/27/2024 eGFR 03/27/2025 03/27/2024, 03/13/2024 DTaP/Tdap/Td Vaccine (2 - Td or Tdap) 06/05/2027 06/05/2017 Zoster Vaccine Completed 06/27/2018, 03/01/2018 Pneumococcal vaccine 65+ Completed 02/19/2020, 11/2017 Medical Devices Implanted Type Area Supplier Development Manager Device Identifier Shelf Expiration Date Model / Serial / Lot Depuy Orthopa[employer] Shell Acetabular Emsys Shl 3hole 48 [id number] - [id number] Implanted:Qty: 1 on 03/26/2024 by Lacy Curiel DO at [facility] Right: Hip [employer]uy [employer] [id number] 01/27/2034 [id number] / / [id number] Depuy [employer] Liner Acetabular Emsys Lnr Aox N 48x36 [id number] - [id number] Implanted:Qty: 1 on 03/26/2024 by Lacy Curiel DO at [facility] Right: Hip [employer]uy [employer] [id number] 12/27/2028 [id number] / / [id number] Depuy [employer] [place] 6.5mm 20mm Acetabular Cancellous Screw Bone Sterile 121--500 - [id number] Implanted:Qty: 1 on 03/26/2024 by Lacy Curiel DO at [facility] Right: Hip [employer]uy [employer] Inc [id number] 11/26/2033 1217-20-500 / / [id number] Depuy [employer] [place] 6.5mm 25mm Acetabular Cancellous Screw Bone Sterile 121500 - [id number] Implanted:Qty: 1 on 03/26/2024 by Lacy Curiel DO at [facility] Right: Hip Depuy [employer] Inc [id number] 12/27/2033 1217-25-500 / / [id number] Depuy [employer] Stem Femoral Hip Porous Proximal Collared Actis 95mm Titanium Standard Offset Size 0 [id number] - [id number] Implanted:Qty: 1 on 03/26/2024 by Lacy Curiel DO at [facility] Right: Hip [employer]uy [employer] Inc [id number] 09/26/2032 [id number] / / [id number] Depuy [employer] Articul/Alpesh 36mm Cementless Hip +5mm 12/14 Taper Head Femoral Latex Free [id number] - [id number] Implanted:Qty: 1 on 03/26/2024 by Lacy Curiel DO at [facility] Right: Hip [employer]uy [employer] Inc [id number] 11/26/2028 [id number] / / [id number] Procedures Procedure Name Priority Date/Time Associated Diagnosis [...] 7 AM CDT 08/21/2024 11:58 AM CDT us Pawan Patrick MD PhD LAB BLOOD ORDERABLES F inal Result [facility] [address] [facility] Department [place] [address] * Vitamin B12 (08/21/2024 11:17 AM CDT) Vitamin B12 283 230 - 1,250 pg/mL Blood 08/21/2024 11:1 7 AM CDT 08/21/2024 11:58 AM CDT Pawan Patrick MD PhD LAB BLOOD ORDERABLES F inal Result [facility] Department [place] [address] * eGFR (03/27/2024 5:32 AM CDT) eGFR [...] LAB BLOOD ORDERABLES Final Resul t [facility] [address] [facility] [place] [address] * Dexa Axial Skeleton Bone Density 1 [...] spine and left hip. Electronically signed by: Missy Restrepo 03/19/2020 12:27 PM CDT Examination: Bone densitometry [...] hip. Electronically signed by: Camille Rodriges M.D. Freddiedairan Stanley DO [facility] DXA PROCEDURES Final Result * Screening Mammogram [...] has been subjected to R2/CAD analysis. Freddie Jaden DO [facility] MAMMO PROCEDURES Final Resul t from Last 3 Months or Most Recently Relevant to Health Maintenance Insurance [facility] MEDICARE ADVANTAGE MDCR HMO REF Advance Directives For more information, please contact: [phone] * Full Code (Latest Code Status on File) Date Activated Date Inactivated Comments 03/26/2024 11:21 AM 03/27/2024 4:55 PM Care Teams Galvanometer Assembler Relationship Specialty Start Date End Date Baldo Bower MD PCP - General Family Practice 11/03/23 Lacy Curiel DO [address] [place] [address] Consulting Physician Orthopedic Surgery 03/27/24
== END 2024-09-24 16:07 | disposition home or self-care (01) ==
PROVIDERS: PCP Family Medicine; Visit Provider Family Medicine
DX: M89.8X1 Other specified disorders of bone, shoulder (principal); R53.83 Other fatigue; M47.892 Other spondylosis, cervical region; M19.011 Primary osteoarthritis, right shoulder
CPT/HCPCS: 36415; 72050; 73000; 81003; 82306; 83735

== ENCOUNTER 2024-11-05 02:35 | Day surgery (SDC) | payer MEDICARE, SELFPAY ==
[2024-10-26 13:45] VITALS: BMI 24.7
--- OUTSIDE RECORDS SUMMARY | 2024-11-05 02:38 | XMS_ITS | CONTINUITY OF CARE DOCUMENT ---
Author Name michellereshma rhondatresa Address Unknown Organization [facility] Address [address] [place] [address] Phone [phone] Care Team Providers Care Repair Clerk Name Role Phone Carlos Eduardo Roman MD Unavailable [phone] Oseas Crespo DO Unavailable [phone] NAVA JOHN MD Unavailable PROBLEMS Condition [...] encounter Office Visit Carlos Eduardo Roman MD [place] [facility] CHEST PAINHypertensionDyslipidemiaDiabetes mellitusTobacco use quitFamily history of CAD VITAL SIGNS Date Observation Value Provider Body Mass Index (Ratio) 26.52 kg/m2 Raul Gutiérrez blood pressure, resting Yes Kill een blood pressure, diastolic, left arm 86 mm [Hg] Roosevelt blood pressure, systolic, left arm 120 mm [Hg] Roosevelt blood pressure, diastolic, right arm 80 m [...] quit 2006 Berta boss cigarette use yes Roosevelt [place] smoking status Former smoker Berta Shore [...] Payer name Policy type / Coverage type [employer] party ID UHC MEDICARE COMPLETE HMO Other [id number] TREATMENT PLAN Date Name Performer Cardiology:Multiple [...] arsenio hardy, normal pharmacological stress myoview at [facility]. Will request her records. Will schedule an echo and CT coronary calcium score. We discussed cardiac cath depending on the results of her testing. Carlos Eduardo Roman MD Cardiology:Her [facility] ed medication list for this problem includes: [...]
--- OUTSIDE RECORDS SUMMARY | 2024-11-05 02:38 | XMS_ITS | Referral Summary ---
Author Organization [facility] Address [address] [place] [address] Care Team Providers Care Equipment Processor Name Role Phone Baldo Bower MD Primary Care Provider [phone] Lacy Curiel DO Unavailable [phone] Encounters Date Type Department Care Team Description 09/13/2024 Orders Only [facility] Orthopedics and Sports Medicine [address] [place] [address] Lacy Curiel DO Aftercare following right hip joint replacement surgery (Primary Dx) 09/12/2024 Telephone [facility] Orthopedics and Sports Medicine [address] [place] [address] [place] [phone] Lacy Curiel DO dental appointment 08/31/2024 Results Follow-Up Neurology Pawan Patrick MD PhD TSH, Vitamin B12 08/21/2024 12:05 PM CDT Lab [facility] ([facility]) [address] [place] [phone] Memory change 08/21/2024 9:00 AM CDT Office Visit [facility] [facility] 6th [place] [address] [place] [address] Pawan Patrick MD PhD Memory change (Primary Dx); Family history of Alzheimer's disease from Last 3 Months Allergies Active Allergy Reactions Criticality Noted Date Comments Cephalexin Hives Medium 03/13/2024 Happened in 1974. Does not know if she has ever had Ancef. Penicillins Other (See comments) Low 12/01/2016 Massive hives, choked up, spent 36 hours in the ED, facial swelling, throat swelling, skin turned red. 1974 Sulfa (Sulfonamide Antibiotics) Shortness of breath High 09/06/2018 Medications metFORMIN (GLUCOPHAGE) 500 mg tablet Take 1 tablet (500 mg total) by mouth 2 (two) times a day with meals 8 Active lisinopriL (PRINIVIL,ZESTR IL) 10 mg tablet Take 1 tablet (10 [...] nostril(s) daily Active doxycycline (PERIOSTAT) 20 mg tabletIndicatio ns:Other (complete free text reason below),Rosacea Take 2 tablets (40 mg total) by mouth daily For Rosacea Active rosuvastatin (CRESTOR) 20 mg tablet Take 1 tablet (20 mg total) by mouth nightly Active ferrous sulfate 325 mg (65 mg of elemental iron) tabletIndicatio ns:Iron Deficiency Anemia Take 1 tablet (325 mg total) by mouth daily with breakfast Active UNABLE TO FIND Take 1 each by mouth 2 (two) times a day Med Name: MegaRed [place]-3 Krill oil Active meloxicam (MOBIC) 7.5 mg tablet Take 1 tablet (7.5 mg total) by mouth 2 (two) times a day Active acetaminophen ER (TYLENOL) 650 mg 8 hr tablet Take 2 tablets (1,300 mg total) by mouth 2 (two) times a day Active UNABLE TO FIND Take 1 each by mouth daily Med Name: Qunol ultra CoQ10 100 mg Active glucosamine-cho ndroitin 250-200 mg tablet Take 1 tablet by mouth 2 (two) times a day Active valACYclovir (VALTREX) 500 mg tabletIndicatio ns:Chronic Suppression,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, nose and mouth Take 1 tablet (500 mg total) by mouth daily Active cholecalciferol (VITAMIN D-3) 2000 unit tablet Take 1 tablet (2,000 Units total) by mouth 2 (two) times a day Active vitamins A,C,E-zinc-ambrosio er (ICAPS) 4,296 mcg-226 mg-90 mg capsule Take 1 capsule by mouth 2 (two) times a day Active loratadine 10 mg capsule Take 1 tablet by mouth nightly Active LORazepam (ATIVAN) 0.5 mg tablet Take 1 tablet (0.5 mg total) by mouth every 8 (eight) hours as needed for anxiety Active Cholestyramine Light 4 gram powder 4 Active docusate sodium (COLACE) 100 mg capsuleIndicati ons:constipatio n Take 1 capsule (100 mg total) by mouth 2 (two) times a day 60 capsule 4 Active calcium carbonate-vitam in D3 (Calcium 500 + D) 1,250 mg (500 mg elemental)-400 unit chewable tablet CALCIUM + D TABLET 9 Active traMADoL (ULTRAM) 50 mg tablet Take by mouth every 6 (six) hours as needed 5 Active clindamycin (CLEOCIN) 300 mg capsule Take 2 capsules (600 mg total) by mouth as needed (take 2 tablets before dental procedures and cleanings) 2 capsule 5 Active Active Problems Problem Noted Date Diagnosed [...] Used Date Smoking Tobacco: Former Cigarettes 1.5 18.4 S tarted: 1986 Passive Smoke Exposure: Past Smokeless Tobacco: Never Tobacco Cessation:Counseling Given: Not Answered [facility] Utilities Answer Date Recorded In the past [...] often do you attend chur ch or restoration services? Never 03/26/2024 Do you belong to any clubs o r organizations such as buddhism groups, unions, fraternal or athletic groups, or [...] were you homeless or living in a alf (including now)? No 03/26/2024 Personal Safety Answer Date Recorded Have you ever been in or are you currently in a harmful physical or emotional relationship or is someone making you feel afraid or unsafe? Denies 03/26/2024 Comments No Sex and Gender Information Value Date Recorded Sex Assigned at Not on file Legal Sex Female 1:32 PM [employer] Gender Identity Not on file Sexual Orientation [...] 8:52 AM CDT Height 157.5 cm (5' 2) 08/21/2024 8:52 AM CDT Body Mass Index 25.24 08/21/2024 8:52 AM CDT Plan of Treatment Not on file Medical Devices Implanted Type Area Career Counselor Device Identifier Shelf Expiration Date Model / Serial / Lot Depuy [employer] Shell Acetabular Emsys Shl 3hole 48 [id number] - [id number] Implanted:Qty: 1 on 03/26/2024 by Lacy Curiel DO at [facility] Right: Hip [employer] [id number] 01/27/2034 [id number] / / [id number] Dep[employer] Liner Acetabular Emsys Lnr Aox N 48x36 [id number] - [id number] Implanted:Qty: 1 on 03/26/2024 by Lacy Curiel DO at [facility] Right: Hip [employer] [id number] 12/27/2028 [id number] / / [id number] Dep[employer] [place] 6.5mm 20mm Acetabular Cancellous Screw Bone Sterile 1217--500 - [id number] Implanted:Qty: 1 on 03/26/2024 by Lacy Curiel DO at [facility] Right: Hip [employer] [id number] 11/26/2033 1217-20-500 / / [id number] Dep[employer] [place] 6.5mm 25mm Acetabular Cancellous Screw Bone Sterile 1217--500 - [id number] Implanted:Qty: 1 on 03/26/2024 by Lacy Curiel DO at [facility] Right: Hip [employer] [id number] 12/27/2033 1217--500 / / [id number] Dep[employer] Stem Femoral Hip Porous Proximal Collared Actis 95mm Titanium Standard Offset Size 0 [id number] - [id number] Implanted:Qty: 1 on 03/26/2024 by Lacy Curiel DO at [facility] Right: Hip [employer] [id number] 09/26/2032 [id number] / / [id number] Dep[employer] Articul/Alpesh 36mm Cementless Hip +5mm 12/14 Taper Head Femoral Latex Free [id number] - [id number] Implanted:Qty: 1 on 03/26/2024 by Lacy Curiel DO at [facility] Right: Hip [employer] [id number] 11/26/2028 [id number] / / [id number] Procedures Procedure Name Priority Date/Time Associated Diagnosis [...] Results * TSH (08/21/2024 11:17 AM CDT) Pathologist [facility] Thyroid Stimulating Hormone 1.22 0.30 - 4.20 mcIUnit/mL Blood 08/21/2024 11:1 7 AM CDT 08/21/2024 11:58 AM CDT Pawan Patrick MD PhD LAB BLOOD ORDERABLES F inal Result Performing Organization Address [facility] Co de Phone Number [facility] [place] [address] * Vitamin B12 (08/21/2024 11:17 AM CDT) [facility] Vitamin B12 283 230 - 1,250 pg/mL Blood 08/21/2024 11:1 7 AM CDT 08/21/2024 11:58 AM CDT Pawan Patrick MD PhD LAB BLOOD ORDERABLES F inal Result Performing Organization Address City/[facility] de Phone Number [facility] [place] [address] * eGFR (03/27/2024 5:32 AM CDT) [facility] eGFR >90 >=60 mL/min/1. 73 m2 [...] BARRY LAB BLOOD ORDERABLES Final Resul t [facility] [address] [facility] Department of Laboratories [place], [place] [id number] * Dexa Axial Skeleton Bone Density 1 [...] signed by: Camille Rodriges M.D. Freddie Stanley [facility] DXA PROCEDURES Final Result * [...] Most Recently Relevant to Health Maintenance Insurance [facility] MEDICARE ADVANTAGE Member Subscriber Plan / Payer (Ef fective 2023-Present) Name:Isela Kendall Relation to Subscriber:Self Name:Isela Kendall Payer ID:[id number] (NAIC) Type:[facility] MEDICARE Address: [place] [id number] [place] [address] [facility] MEDICARE ADVANTAGE [facility] [place] [address] Advance Directives For more information, please contact: [phone] * Full Code (Latest Code Status on File) Date Activated Date Inactivated Comments 03/26/2024 11:21 AM 03/27/2024 4:55 PM Care Teams Equipment Processor Relationship Specialty Start Date End Date Baldo Bower MD PCP - General Family Practice 11/03/23 Lacy Curiel DO [address] [place] [address] Consulting Physician Orthopedic Surgery 03/27/24
--- OUTSIDE RECORDS SUMMARY | 2024-11-05 02:38 | XMS_ITS | Clinical Summary ---
Author Organization [facility] Address [address] [place] [address] Care Team Providers Care Side Splitter Name Role Phone Baldo Bower MD Primary Care Provider [phone] Lacy Curiel DO Unavailable [phone] Allergies Active Allergy Reactions Criticality Noted [...] (two) times a day Med Name: MegaRed [place]-3 Krill oil Active meloxicam (MOBIC) 7.5 mg [...] before dental procedures and cleanings) 2 capsule Active Active Problems Problem Noted Date Diagnosed [...] Department Care Team Description 09/13/2024 Orders Only [facility] Medical Group Orthopedics and Sports Medicine [address] [place] [address] [address] [place] [phone] Lacy Curiel DO Aftercare following right hip joint replacement surgery (Primary Dx) 09/12/2024 Telephone [facility] Medical [facility] Orthopedics and Sports Medicine [address] [place] [address] [address] [place] [phone] Lacy Curiel DO dental appointment 08/31/2024 Results Follow-Up Neurology Pawan Patrick MD PhD TSH, Vitamin B12 08/21/2024 12:05 PM CDT Lab [facility] ([facility]) [address] [place] [phone] Memory change 08/21/2024 9:00 AM CDT Office Visit [facility] [address] [facility] 6th [place] [address] [place] [address] Pawan Patrick MD PhD Memory change (Primary Dx); Family history of Alzheimer's disease from Last 3 Months Surgical History Surgery [...] Tobacco: Never Tobacco Cessation:Counseling Given: Not Answered [facility] Utilities Answer Date Recorded In the past 12 months has [employer], gas, oil, or water [employer] threatened to shut off services in your [...] often do you attend chur ch or evangelical services? Never 03/26/2024 Do you belong to [...] any time in the past 12 m [facility], were you homeless or living in a prison (including now)? No 03/26/2024 Personal Safety Answer Date Recorded Have you ever been in or are you currently in a harmful physical or emotional relationship or is someone making you feel afraid or unsafe? Denies 03/26/2024 Comments No Sex and Gender Information Value Date Recorded Sex Assigned at Not on file Legal Sex Female 1:32 PM [employer] Gender Identity Not on file Sexual Orientation [...] 02/19/2020, 11/2017 Medical Devices Implanted Type Area Tool And Die Maker/Designer Device Identifier Shelf Expiration Date Model / Serial / Lot Depuy Orthopa[employer] Shell Acetabular Emsys Shl 3hole 48 [id number] - [id number] Implanted:Qty: 1 on 03/26/2024 by Lacy Curiel DO at [facility] Right: Hip [employer]uy [employer] [id number] 01/27/2034 [id number] / / [id number] Dep[employer] Liner Acetabular Emsys Lnr Aox N 48x36 [id number] - [id number] Implanted:Qty: 1 on 03/26/2024 by Lacy Curiel DO at [facility] Right: Hip [employer]uy [employer] Inc [id number] 12/27/2028 [id number] / / [id number] Depuy [employer] [place] 6.5mm 20mm Acetabular Cancellous Screw Bone Sterile 1217-- - [id number] Implanted:Qty: 1 on 03/26/2024 by Lacy Curiel DO at [facility] Right: Hip [employer]uy [employer] Inc [id number] 11/26/2033 1217--500 / / [id number] Depuy [employer] Inc [place] 6.5mm 25mm Acetabular Cancellous Screw Bone Sterile 1217--500 - [id number] Implanted:Qty: 1 on 03/26/2024 by Lacy Curiel DO at [facility] Right: Hip [employer]uy [employer] Inc [id number] 12/27/2033 121--500 / / [id number] Depuy [employer] Stem Femoral Hip Porous Proximal Collared Actis 95mm Titanium Standard Offset Size 0 [id number] - [id number] Implanted:Qty: 1 on 03/26/2024 by Lacy Curiel DO at [facility] Right: Hip Depuy [employer] Inc [id number] 09/26/2032 [id number] / / [id number] Depuy [employer] Articul/Alpesh 36mm Cementless Hip +5mm 12/14 Taper Head Femoral Latex Free [id number] - [id number] Implanted:Qty: 1 on 03/26/2024 by Lacy Curiel DO at [facility] Right: Hip [employer]uy [employer] [id number] 11/26/2028 [id number] / / [id number] Procedures Procedure Name Priority Date/Time Associated Diagnosis [...] PhD LAB BLOOD ORDERABLES F inal Result [facility] [address] [facility] Department [place] [address] * Vitamin B12 (08/21/2024 11:17 AM CDT) Vitamin B12 283 230 - 1,250 pg/mL Blood 08/21/2024 11:1 7 AM CDT 08/21/2024 11:58 AM CDT us Pawan Patrick MD PhD LAB BLOOD ORDERABLES F inal Result [facility] [address] [facility] Department [place] [address] * eGFR (03/27/2024 5:32 AM CDT) eGFR [...] LAB BLOOD ORDERABLES Final Resul t [facility] [address] [facility] Department [place] [address] * Dexa Axial Skeleton Bone Density 1 [...] hip. Electronically signed by: Camille Rodriges M.D. [facility] DO [facility] DXA PROCEDURES Final Result * Screening [...] examination has been subjected to R2/CAD analysis. [facility] DO [facility] MAMMO PROCEDURES Final Resul t from Last 3 Months or Most Recently Relevant to Health Maintenance Insurance [facility] MEDICARE ADVANTAGE [facility] MDCR HMO REF Advance Directives For more information, please contact: [phone] * Full Code (Latest Code Status on File) Date Activated Date Inactivated Comments 03/26/2024 11:21 AM 03/27/2024 4:55 PM Care Teams Side Splitter Relationship Specialty Start Date End Date Baldo Bower MD PCP - General Family Practice 11/03/23 Lacy Curiel DO [address] [place] [address] Consulting Physician Orthopedic Surgery 03/27/24
[2024-11-05 06:21] VITALS: BP 117/69; PULSE 66; RESP 18; TEMP 36; O2SAT 100; BMI 25.2
[2024-11-05] MEDS: LACTATED RINGERS 1,000 ML 150 ML IV CONT (06:36)
[2024-11-05 06:54] LABS: Glucose Point of Care 89 mg/dl (65-105)
--- NOTE | 2024-11-05 07:07 | P.PNAN_ITS ---
Anes - Initial Pre Proc Eval Procedure: Operation Date: 11/05/24 07:30 Proposed Procedures p Esophagogastroduodenoscopy - Koko Simon MD Date/Time: 11/05/24 07:07 Surgeon: Koko Simon MD Pre Op Diagnosis: Gastro-esophageal reflux disease without esophagit Patient Data Age: 74 Gender: F Height: 1.57 m Weight: 62.5 kg Last Vital Signs Temp 36.0 C L 11/05/24 06:21 Pulse 66 11/05/24 06:21 Resp 18 11/05/24 06:21 BP 117/69 11/05/24 06:21 Pulse Ox 100 11/05/24 06:21 O2 Del Method Room Air 11/05/24 06:21 Allergies Allergy/AdvReac Type Severity Reaction Status Date / Time Penicillins Allergy Severe Anaphylaxis Verified 11/05/24 06:18 Sulfa (Sulfonamide Allergy Severe Anaphylaxis Verified 11/05/24 06:18 Antibiotics) Home Medications ?Medication ?Instructions ?Recorded ?Confirmed ?Type vitamins A,C,M-bszv-ohyjjx 2,148 2 tablet PO BID 06/04/21 11/05/24 History mcg-113 mg-45 mg-17.4 mg tablet (PreserVision AREDS) cholecalciferol (vitamin D3) 25 25 mcg PO BID 07/28/23 11/05/24 History mcg (1,000 unit) capsule doxycycline hyclate 20 mg tablet 20 mg PO QAM 07/28/23 11/05/24 History glucosamine 750 vf-dhyyzlunwnr-idy 1 tablet PO BID 07/28/23 11/05/24 History no1 644 mg-C 30 mg-juan 1 mg tablet (Osteo Bi-Flex Triple Strength) krill oil 500 mg capsule 500 mg PO BID 07/28/23 11/05/24 History cholestyramine-aspartame 4 gram 4 g PO BID #231 grams 02/07/24 11/05/24 Rx oral powder (Cholestyramine Light) metformin 500 mg tablet See Rx Instructions .Route 06/18/24 11/05/24 Rx .COMPLEX #180 tabs lorazepam 0.5 mg tablet 0.5 mg PO DAILY PRN sleep #30 tabs 06/27/24 10/26/24 Rx valacyclovir 500 mg tablet See Rx Instructions .Route 08/08/24 11/05/24 Rx .COMPLEX #90 tabs rosuvastatin 20 mg tablet See Rx Instructions .Route 09/14/24 11/05/24 Rx .COMPLEX #90 tabs meloxicam 7.5 mg tablet 7.5 mg PO DAILY 10/23/24 11/05/24 History atenolol 25 mg tablet See Rx Instructions .Route 11/02/24 11/05/24 Rx .COMPLEX #90 tabs lisinopril 10 mg tablet See Rx Instructions .Route 11/02/24 11/05/24 Rx .COMPLEX #90 tabs pantoprazole 40 mg tablet,delayed See Rx Instructions .Route 11/02/24 11/05/24 Rx release .COMPLEX #90 tabs Laboratory Tests 11/05/24 06:52 POC Capillary Glucose 89 mg/dl (65-105) Patient hx anesthesia problems: none Family hx anesthesia problems: none Results Review: All pre-operative results and documents have been reviewed as part of the pre- operative evaluation. [facility] Past Medical History Medical History Early satiety Nausea IBS (irritable bowel syndrome) Low back pain UTI symptoms Serum calcium elevated Screening for osteoporosis Screening for hypothyroidism RUQ abdominal pain Encounter for Routine Gynecological Examination Retina disorder, right Primary skin basal cell carcinoma Preoperative clearance Personal history of nicotine dependence Pain of both hip joints On cork molder drug therapy Hyperglycemia Generalized headaches Colon cancer screening Chronic cholecystitis Cholecystitis Chest discomfort Breast cancer screening BMI 28.0-28.9,adult BMI 25.0-25.9,adult Benign paroxysmal positional vertigo of left ear Acute cholecystitis HSV (herpes simplex virus) infection Vaginal delivery x2 Hypercholesteremia Gallbladder disorder Skin cancer Arthritis Right rotator cuff tear Hypertension Seizure Diabetes Gastroesophageal reflux UTI (urinary tract infection) Witnessed seizure-like activity one time Surgical History Surgical History S/P laparoscopic cholecystectomy History of right oophorectomy 1987 History of left oophorectomy History of colposcopy 2007 History of gynecologic surgery 2007, cervical cryosurgery [place] teeth extracted 1974 History of bilateral tubal ligation 1979 History of tonsillectomy and adenoidectomy 1963 Hx of LASIK right eye Hx of hysterectomy, total 1981 Hx of appendectomy 1981 History of cataract extraction bilateral Hx of cholecystectomy 2017 Family History Family History Mother Family history of rheumatoid arthritis, Onset Age: 78 Family history of Alzheimer's disease, Onset Age: 78 Family history of heart disease in male family member before age 55 Patient's mother is , Onset Age: 78 Hypertension Heart disease Father Family history of Parkinson's disease, Onset Age: 79 Asthma Sibling Family history of coronary artery disease Family history of heart disease in male family member before age 55 Cancer Diabetes mellitus Hypertension Heart disease Grandparent Diabetes mellitus Cancer Other Family history of cardiovascular disease Family history of malignant neoplasm Social History Social History Smoking packs per day: 1 Smoking cigarettes per day: 20.0 Years smoked: 20 Smoking pack-years: 20.00 Smoking status: Former smoker Tobacco type: cigarettes Second hand tobacco smoke exposure: Yes Smoking end date: 05/30/06 Alcohol intake: former Drinks per week: 2 Substance use: current Substance use type: marijuana Other substance usage details: ingests marijuana a few times a week Lack of Transportation: No Lack of Food: Never True Current Housing: I Have Housing Concerned About Future Housing: No Difficulty Paying Gas/Electric Bills: No Difficulty Paying for Meds: No Currently Unemployed: No Education: Associate Degree Difficulty w/ Childcare or Family Care: No Living arrangements: with family Spiritual care concerns: No Agree to blood products: Yes Anes - Eval Final PreProcedure Day of Procedure 11/05/24 07:07 Patient weight: normal Heart: regular rate and rhythm Lungs: clear to auscultation Airway: Mallampati scale class 1 Neurological: alert and oriented Last oral intake: >/= 8 hours ASA classification: III Emergent: no Anesthetic plan: proceed Anesthesia type and monitoring: general GIVS and standard monitoring Results Review: All pre-operative results and documents have been reviewed as part of the pre- operative evaluation. Informed Consent: The patient's anesthetic plan and its attendant risks and benefits were discussed with the patient/family/POA. Questions were solicited and answers provided to the satisfaction of the patient/family/POA.
--- NOTE | 2024-11-05 07:27 | WPDHPUPDATE1 ---
History and Physical Update Update Date/Time: 11/05/24 07:27 History and Physical has been reviewed, including an updated exam of the patient. There are NO changes in the patient's condition. Risks, benefits, and alternatives have been discussed and questions answered. Patient agrees to proceed with procedure.
--- NOTE | 2024-11-05 07:34 | S_PTH ---
PATIENT: Isela Kendall LOC: [facility] Hannah#:[id number] AGE/SX: 74/F ROOM: RE11/05/[address]: Koko Simon MD : 1950 BED: DIS: 11/05/2024 SPEC #: [id number] RECD: 11/05/24 10:17 STATUS: DIAMOND [place] #: [id number] INEZ: 11/05/24 07:[address]: Koko Simon DEPT: [facility] Surgical RECD BY: Joie Montana ENTERED: 11/05/24 10:17 SP TYPE: Surgical OTHR DR: Baldo Bower MD Tissues: A - Small Bowel Bx B - Gastric Biopsy Procedures: Hematoxylin and Eosin Stain Gross and Microscopic Level 4
[2024-11-05 07:36] VITALS: BP 96/40; PULSE 78; RESP 23; O2SAT 94
[2024-11-05 07:46] VITALS: BP 92/51; PULSE 85; RESP 19; O2SAT 95
[2024-11-05 07:56] VITALS: BP 132/70; PULSE 73; RESP 25; O2SAT 98
== END 2024-11-05 08:08 | disposition home or self-care (01) ==
PROVIDERS: PCP Family Medicine; Visit Provider Internal Medicine Gastroenterology
PROC: 0DJ08ZZ Inspection of Upper Intestinal Tract, Via Natural or Artificial Opening Endoscopic (ICD-10-PCS; CPT 43239; principal; 2024-11-05 07:30)
DX: K21.9 Gastro-esophageal reflux disease without esophagitis (principal); K29.50 Unspecified chronic gastritis without bleeding; R11.0 Nausea; K74.60 Unspecified cirrhosis of liver; E11.9 Type 2 diabetes mellitus without complications; F12.90 Cannabis use, unspecified, uncomplicated
CPT/HCPCS: 43239; 82948; 88305; J2704; J7120

== ENCOUNTER 2024-11-28 14:11 | Outpatient (CLI) | payer MEDICARE, SELFPAY ==
--- OUTSIDE RECORDS SUMMARY | 2024-11-28 14:15 | XMS_ITS | Clinical Summary ---
Author Organization [facility] Address 1 [place] [address] Care Team Providers Care Inspector Experimental Assembly Name Role Phone Baldo Bower MD Primary Care Provider [phone] Lacy Curiel DO Unavailable [phone] Allergies Active Allergy Reactions Criticality Noted [...] (two) times a day Med Name: MegaRed [place]-3 Krill oil Active meloxicam (MOBIC) 7.5 mg [...] Department Care Team Description 09/13/2024 Orders Only [facility] Orthopedics and Sports Medicine [address] [place] [address] [address] [place] [id number] Lacy Curiel DO Aftercare following right hip joint replacement surgery (Primary Dx) 09/12/2024 Telephone [facility] Orthopedics and Sports Medicine [address] [place] [address] [address] [place] [address] Lacy Curiel DO dental appointment 08/31/2024 Results Follow-Up Neurology Pawan Patrick MD PhD TSH, Vitamin B12 from Last 3 Months Surgical History Surgery [...] Used Date Smoking Tobacco: Former Cigarettes 1.5 18.5 S tarted: 1986 Passive Smoke Exposure: Past Smokeless Tobacco: Never Tobacco Cessation:Counseling Given: Not Answered [facility] Utilities Answer Date Recorded In the past 12 months has e [employer], [employer], oil, or water [employer] threatened to shut off services in your [...] 03/26/2024 How often do you attend chur or orthodoxy services? 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 Gender Identity Not on file Sexual Orientation [...] 02/19/2020, 11/2017 Medical Devices Implanted Type Area Clinical Nurse Leader Device Identifier Shelf Expiration Date Model / Serial / Lot Depuy Orthopaedics Inc Shell Acetabular Emsys Shl 3hole 48 [id number] - [id number] Implanted:Qty: 1 on 03/26/2024 by Lacy Curiel DO at [facility] Right: Hip Depuy Orthopaedics Inc [id number] 01/27/2034 [id number] / / [id number] Depuy Orthopaed[employer] Inc Liner Acetabular Emsys Lnr Aox N 48x36 [id number] - [id number] Implanted:Qty: 1 on 03/26/2024 by Lcay Curiel DO at [facility] Right: Hip Depuy Orthopaedics Inc [id number] 12/27/2028 [id number] / / [id number] Depuy Orthopaedics Inc [place] 6.5mm 20mm Acetabular Cancellous Screw Bone Sterile 1217--500 - [id number] Implanted:Qty: 1 on 03/26/2024 by Lacy Curiel DO at [facility] Right: Hip Depuy Orthopaed[employer] Inc [id number] 11/26/2033 1217--500 / / [id number] Depuy Orthopaedics Inc [place] 6.5mm 25mm Acetabular Cancellous Screw Bone Sterile 1217-- - [id number] Implanted:Qty: 1 on 03/26/2024 by Lacy Curiel DO at [facility] Right: Hip Depuy Orthopaedics Inc [id number] 12/27/2033 1217--500 / / [id number] Depuy Orthopaed[employer] Inc Stem Femoral Hip Porous Proximal Collared Actis 95mm Titanium Standard Offset Size 0 [id number] - [id number] Implanted:Qty: 1 on 03/26/2024 by Lacy Curiel DO at [facility] Right: Hip Depuy Orthopaedics Inc [id number] 09/26/2032 [id number] / / [id number] Depuy Orthopaedics Inc Articul/Alpesh 36mm Cementless Hip +5mm 12/14 Taper Head Femoral Latex Free [id number] - [id number] Implanted:Qty: 1 on 03/26/2024 by Lacy Curiel DO at [facility] Right: Hip Depuy Orthopaedics Inc [id number] 11/26/2028 [id number] / / [id number] Procedures Procedure Name Priority Date/Time Associated Diagnosis Comments EGFR Routine 03/27/2024 5:32 AM CDT DEXA [...] Recently Relevant to Health Maintenance Results * eGFR (03/27/2024 5:32 AM CDT) eGFR [...] BARRY LAB BLOOD ORDERABLES Final Resul t TRUDIQDU [address] [facility] Department [place] [address] * Dexa Axial Skeleton Bone [...] hip. Electronically signed by: Camille Rodriges M.D. [facility] Stanley DO [facility] DXA PROCEDURES Final Result * Screening Mammogram [...] subjected to R2/CAD analysis. Freddie Stanley DO [facility] MAMMO PROCEDURES Final Resul t from Last 3 Months or Most Recently Relevant to Health Maintenance Insurance [facility] MEDICARE ADVANTAGE UHC MDCR HMO REF [place] [id number] UHC MEDICARE ADVANTAGE Advance Directives For more information, please contact: [phone] * Full Code (Latest Code Status on File) Date Activated Date Inactivated Comments 03/26/2024 11:21 AM 03/27/2024 4:55 PM Care Teams Inspector Experimental Assembly Relationship Specialty Start Date End Date Baldo Bower MD PCP - General Family Practice 11/03/23 Lacy Curiel DO [address] [facility] [address] [place] [address] [place] [address] Consulting Physician Orthopedic Surgery 03/27/24
--- OUTSIDE RECORDS SUMMARY | 2024-11-28 14:15 | XMS_ITS | Referral Summary ---
Author Organization [facility] Address [address] [place] [address] Care Team Providers Care Cafeteria Clerk Name Role Phone Baldo Bower MD Primary Care Provider [phone] Lacy Curiel DO Unavailable [phone] Encounters Date Type Department Care Team Description 09/13/2024 Orders Only [facility] Medical Group Orthopedics and Sports Medicine [address] [place] [address] [address] [place] [address] Lacy Curiel DO Aftercare following right hip joint replacement surgery (Primary Dx) 09/12/2024 Telephone [facility] Medical Group Orthopedics and Sports Medicine [address] [place] [address] [address] [place] [address] Lacy Curiel DO dental appointment 08/31/2024 Results Follow-Up Neurology Pawan Patrick MD PhD TSH, Vitamin B12 from Last 3 Months Allergies Active Allergy [...] 2 (two) times a day Med Name: [employer] [place]-3 Krill oil Active meloxicam (MOBIC) 7.5 mg [...] Tobacco: Never Tobacco Cessation:Counseling Given: Not Answered [facility] Utilities Answer Date Recorded In the past 12 months has [employer], gas, oil, or water company threatened to [...] week 03/26/2024 How often do you attend [facility] or shinto services? Never 03/26/2024 Do you belong to [...] any time in the past 12 m [facility], were you homeless or living in a fpc (including now)? No 03/26/2024 Personal Safety Answer Date Recorded Have you ever been in or are you currently in a harmful physical or emotional relationship or is someone making you feel afraid or unsafe? 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 Gender Identity Not on file Sexual [...] on file Medical Devices Implanted Type Area Anthropologist Physical Device Identifier Shelf Expiration Date Model / Serial / Lot Depuy Orthopaedics Inc Shell Acetabular Emsys Shl 3hole 48 [id number] - [id number] Implanted:Qty: 1 on 03/26/2024 by Lacy Curiel DO at [facility] Right: Hip Depuy Orthopaedics Inc [id number] 01/27/2034 [id number] / / [id number] Depuy Orthopaed[employer] Inc Liner Acetabular Emsys Lnr Aox N 48x36 [id number] - [id number] Implanted:Qty: 1 on 03/26/2024 by Lacy Curiel DO at [facility] Right: Hip Depuy Orthopaedics Inc [id number] 12/27/2028 [id number] / / [id number] Depuy Orthopaedics Inc [place] 6.5mm 20mm Acetabular Cancellous Screw Bone Sterile 1217-20-500 - [id number] Implanted:Qty: 1 on 03/26/2024 by Lacy Curiel DO at [facility] Right: Hip Depuy Orthopaedics Inc [id number] 11/26/2033 1217--500 / / [id number] Depuy Orthopaed[employer] Inc [place] 6.5mm 25mm Acetabular Cancellous Screw Bone Sterile 1217-25-500 - [id number] Implanted:Qty: 1 on 03/26/2024 by Lacy Curiel DO at [facility] Right: Hip Depuy Orthopaedics Inc [id number] 12/27/2033 1217-25-500 / / [id number] Depuy Orthopaed[employer] Inc Stem Femoral Hip Porous Proximal Collared Actis 95mm Titanium Standard Offset Size 0 [id number] - [id number] Implanted:Qty: 1 on 03/26/2024 by Lacy Curiel DO at [facility] Right: Hip Depuy Orthopaedics Inc [id number] 09/26/2032 [id number] / / [id number] Depuy Orthopaedics Inc Articul/Alpesh 36mm Cementless Hip +5mm 12/14 Taper Head Femoral Latex Free [id number] - [id number] Implanted:Qty: 1 on 03/26/2024 by Lacy Curiel DO at [facility] Right: Hip Depuy Orthopaedics Inc [id number] 11/26/2028 [id number] / / [id number] Procedures Procedure Name Priority Date/Time Associated Diagnosis [...] LAB BLOOD ORDERABLES Final Resul t ASHOK [address] [facility] Department [place] [address] * Dexa Axial Skeleton Bone [...] Electronically signed by: Camille Rodriges M.D. Freddie [facility] DXA PROCEDURES Final Result * Screening Mammogram [...] Most Recently Relevant to Health Maintenance Insurance [facility] MEDIC[facility] ADVANTAGE [facility] Address: [place] [id number] [place] [address] UHC MDCR HMO REF [facility] Address: [address] [address] [place] [address] [facility] MEDICARE ADVANTAGE [facility] MEDICARE ADVANTAGE [facility] Address: [address] [address] Advance Directives For more information, please contact: [phone] * Full Code (Latest Code Status on File) Date Activated Date Inactivated Comments 03/26/2024 11:21 AM 03/27/2024 4:55 PM Care Teams Cafeteria Clerk Relationship Specialty Start Date End Date Baldo Bower MD PCP - General Family Practice 11/03/23 Lacy Curiel DO [address] [facility] [place] [address] Consulting Physician Orthopedic Surgery 03/27/24
[2024-11-28 15:07] LABS: Alanine Aminotransferase 34 U/L (6-35); Albumin Level 4.4 g/dL (3.5-5.1); Alkaline Phosphatase 44 U/L (38-126); Anion Gap 11 mmol/L (4-12); Aspartate Amino Transferase 36 U/L (14-36); Bilirubin,Total 0.3 mg/dL (0.2-1.3); Blood Urea Nitrogen 19 mg/dL (7-17); Calcium 9.5 mg/dL (8.4-10.2); Carbon Dioxide 23 mmol/L (22-30); Chloride 107 mmol/L (98-107); Estimated Glomerular Filt Rate > 60; Glucose 123 mg/dL (65-110); Potassium 3.9 mmol/L (3.4-5.0); Sodium 141 mmol/L (137-145); Total Protein 6.9 g/dL (6.3-8.2)
[2024-11-28 15:08] LABS: Iron 97 ug/dL (37-170)
[2024-11-28 15:17] LABS: Percent Iron Saturation 27 % (20-50)
[2024-11-28 15:36] LABS: Hepatitis B Surface Antigen Negative (Negative)
[2024-11-28 15:42] LABS: HAV RESULT Negative (Negative); Hepatitis B Core IgM Result Negative (Negative)
[2024-11-28 15:54] LABS: Hepatitis B Surface Anti Res Negative
[2024-12-01 08:13] LABS: Gliadin AB, IgG <1.0 U/mL
[2024-12-01 22:03] LABS: Mitochondrial (M2) Ab (IgG). <20.0 U
[2024-12-03 14:18] LABS: Immunoglobulin A 145 mg/dL (70-320); TTG IGA AB <1.0 U/mL
== END 2024-11-28 14:12 | disposition home or self-care (01) ==
PROVIDERS: PCP Family Medicine; Visit Provider Nurse Practitioner Family
DX: K74.60 Unspecified cirrhosis of liver (principal)
CPT/HCPCS: 36415; 80053; 80074; 81596; 82784; 83520; 83540; 83550; 86038; 86706; 86708

== ENCOUNTER 2024-12-28 06:48 | Outpatient (CLI) | payer MEDICARE, SELFPAY ==
--- NOTE | ~2024-12-28 | US_ITS ---
US right upper quadrant INDICATION: Cirrhosis of the liver PROCEDURE: Realtime right upper abdominal ultrasound. COMPARISON: No prior studies for comparison. FINDINGS: The pancreas is normal without focal mass or pancreatic ductal dilation. Liver echotexture is increased and somewhat heterogeneous with nodular liver surface, compatible with cirrhosis. Ther e is normal directional flow in the portal vein. Gallbladder is surgically absent. Common bile duct measures 6.9 mm. No sonographic Mena's sign. I ncidental note is made of a 1.6 cm right renal cyst. IMPRESSION: 1: Cirrhosis of the liver. Reviewed, dictated and finalized at location A. IMPRESSION: 1: Cirrhosis of the liver.
--- OUTSIDE RECORDS SUMMARY | 2024-12-28 06:55 | XMS_ITS | Clinical Summary ---
Author Organization [facility] Address [address] [place] [address] Care Team Providers Care Fur Blender Name Role Phone Unavailable Primary Care Provider [...] 1:09 PM CDT Height 158.8 cm (5' 2.5) 03/25/2014 1:09 PM CDT Body Mass Index [...]
--- OUTSIDE RECORDS SUMMARY | 2024-12-28 06:55 | XMS_ITS | Clinical Summary ---
Author Organization [facility] Address [address] [place] [address] Care Team Providers Care Blow Down Operator Name Role Phone Baldo Bower MD Primary Care Provider [phone] Lacy Curiel DO Unavailable [phone] Allergies Active Allergy Reactions Criticality Noted [...] (two) times a day Med Name: MegaRed [place]-3 Krill oil Active meloxicam (MOBIC) 7.5 mg [...] 03/19/2016 Overview (09/03/2016): Piriformis syndrome, right Convulsions Surgical History Surgery Date Site/Laterality Comments TONSILLECTOMY as a child FLUORO GUIDED INJECTION HIP RIGHT 06/01/2023 Right FLUORO GUIDED INJECTION HIP RIGHT 11/10/2023 Right EYE SURGERY Bilateral cataracts OOPHERECTOMY 1986 CHOLECYSTECTOMY HYSTERECTOMY and 1 ovary removed COLONOSCOPY 2019 Medical History Medical History Date Comments Hypercholesterolemia High choles terol; Comments: KSA 05/13/2015 - Hypertension Hypertension Gastric reflux Cancer (HCC) basal cell left leg 2009' Diabetes mellitus (HCC) Osteoarthritis Skin cancer, basal [...] Used Date Smoking Tobacco: Former Cigarettes 1.5 18.6 S tarted: 1986 Passive Smoke Exposure: Past Smokeless Tobacco: Never Tobacco Cessation:Counseling Given: Not Answered [facility] Utilities Answer Date Recorded In the [...] often do you attend chur ch or yarsanism services? Never 03/26/2024 Do you belong to any clubs o r organizations such as adventism groups, unions, fraternal or athletic groups, or [...] any time in the past 12 m [facility], were you homeless or living in a long-term (including now)? No 03/26/2024 Personal Safety Answer Date Recorded Have you ever been in or are you currently in a harmful physical or emotional relationship or is someone making you feel afraid or unsafe? 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 Gender Identity Not on file Sexual [...] Scan 03/19/2022 03/19/2020, 01/12/2018 Influenza Vaccine (#1) 2025 , 04/05/2019, 03/01/2018, Additional history exists Fall Risk Assessment 03/27/2025 03/27/2024 eGFR 03/27/2025 03/27/2024, 03/13/2024 DTaP/Tdap/Td Vaccine (2 - Td or Tdap) 06/05/2027 06/05/2017 Zoster Vaccine Completed 06/27/2018, 03/01/2018 Pneumococcal vaccine 65+ Completed 02/19/2020, 11/2017 Medical Devices Implanted Type Area Boxing Promoter Device Identifier Shelf Expiration Date Model / Serial / Lot Depuy Orthopaedics Inc Shell Acetabular Emsys Shl 3hole 48 [id number] - [id number] Implanted:Qty: 1 on 03/26/2024 by Lacy Curiel DO at [facility] Right: Hip Depuy Orthopaedics Inc [id number] 01/27/2034 [id number] / / [id number] Depuy Orthopaedics Inc Liner Acetabular Emsys Lnr Aox N 48x36 [id number] - [id number] Implanted:Qty: 1 on 03/26/2024 by Lacy Curiel DO at [facility] Right: Hip Depuy Orthopaedics Inc [id number] 12/27/2028 [id number] / / [id number] Depuy Orthopaedics Inc [place] 6.5mm 20mm Acetabular Cancellous Screw Bone Sterile 1217-20-500 - [id number] Implanted:Qty: 1 on 03/26/2024 by Lacy Curiel DO at [facility] Right: Hip Depuy Orthopaedics Inc [id number] 11/26/2033 1217--500 / / [id number] Depuy Orthopaedics Inc [place] 6.5mm 25mm Acetabular Cancellous Screw Bone Sterile 1217--500 - [id number] Implanted:Qty: 1 on 03/26/2024 by Lacy Curiel DO at [facility] Right: Hip Depuy Orthopaedics Inc [id number] 12/27/2033 1217500 / / [id number] Depuy Orthopaed[employer] Inc Stem Femoral Hip Porous Proximal Collared Actis 95mm Titanium Standard Offset Size 0 [id number] - [id number] Implanted:Qty: 1 on 03/26/2024 by Lacy Curiel DO at [facility] Right: Hip Depuy Orthopaedics Inc [id number] 09/26/2032 [id number] / / [id number] Depuy Orthopaedics Inc Articul/Alpesh 36mm Cementless Hip +5mm 12/14 Taper Head Femoral Latex Free [id number] - [id number] Implanted:Qty: 1 on 03/26/2024 by Lacy Curiel DO at [facility] Right: Hip Depuy Orthopaedics Inc [id number] 11/26/2028 [id number] / / [id number] Procedures Procedure Name Priority Date/Time Associated Diagnosis [...] LAB BLOOD ORDERABLES Final Resul t ASHOK [address] [facility] Department [place] [address] * Dexa Axial Skeleton Bone Density 1 [...] signed by: Camille Rodriges M.D. Freddie Stanley [facility] DXA PROCEDURES Final Result * [...] Most Recently Relevant to Health Maintenance Insurance [facility] MEDICARE ADVANTAGE [facility] MEDICARE Address: [address] [address] [facility] MDCR HMO REF [facility] MEDICARE Address: [facility] [address] [place] [address] [facility] MEDICARE ADVANTAGE [facility] MEDICARE Address: [address] [place] [address] [facility] MEDICARE ADVANTAGE [facility] MEDICARE Address: [place] [id number] [place] [address] Advance Directives For more information, please contact: [phone] * Full Code (Latest Code Status on File) Date Activated Date Inactivated Comments 03/26/2024 11:21 AM 03/27/2024 4:55 PM Care Teams Blow Down Operator Relationship Specialty Start Date End Date Baldo Bower MD PCP - General Family Practice 11/03/23 Lacy Curiel DO [address] [address] Consulting Physician Orthopedic Surgery 03/27/24
--- OUTSIDE RECORDS SUMMARY | 2024-12-28 06:55 | XMS_ITS | Referral Summary ---
Author Organization [facility] Address [address] [place] [address] Care Team Providers Care Substation Operator Automatic Name Role Phone Baldo Bower MD Primary Care Provider [phone] Lacy Curiel DO Unavailable [phone] Allergies Active Allergy Reactions Criticality Noted [...] (two) times a day Med Name: MegaRed [place]-3 Krill oil Active meloxicam (MOBIC) 7.5 mg [...] Tobacco: Never Tobacco Cessation:Counseling Given: Not Answered [facility] [employer] Answer Date Recorded In the past 12 months has [employer], gas, oil, or water [employer] threatened to shut off services in your [...] week 03/26/2024 How often do you attend [facility] or tenriism services? 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 Gender Identity Not on file Sexual Orientation [...] on file Medical Devices Implanted Type Area Architect Marine Device Identifier Shelf Expiration Date Model / Serial / Lot Depuy Orthopaedics Inc Shell Acetabular Emsys Shl 3hole 48 [id number] - [id number] Implanted:Qty: 1 on 03/26/2024 by Lacy Curiel DO at [facility] Right: Hip Depuy Orthopaedics Inc [id number] 01/27/2034 [id number] / / [id number] Depuy Orthopaed[employer] Inc Liner Acetabular Emsys Lnr Aox N 48x36 [id number] - [id number] Implanted:Qty: 1 on 03/26/2024 by Lacy Curiel DO at [facility] Right: Hip Depuy Orthopaedics Inc [id number] 12/27/2028 [id number] / / [id number] Depuy Orthopaedics Inc [place] 6.5mm 20mm Acetabular Cancellous Screw Bone Sterile 121 - [id number] Implanted:Qty: 1 on 03/26/2024 by Lacy Curiel DO at [facility] Right: Hip Depuy Orthopaedics Inc [id number] 11/26/2033 121--500 / / [id number] Depuy Orthopaed[employer] Inc [place] 6.5mm 25mm Acetabular Cancellous Screw Bone Sterile 121 - [id number] Implanted:Qty: 1 on 03/26/2024 by Lacy Curiel DO at [facility] Right: Hip Depuy Orthopaed[employer] Inc [id number] 12/27/2033 121500 / / [id number] Depuy Orthopaed[employer] Inc Stem Femoral Hip Porous Proximal Collared Actis 95mm Titanium Standard Offset Size 0 [id number] - [id number] Implanted:Qty: 1 on 03/26/2024 by Lacy Curiel DO at [facility] Right: Hip Depuy Orthopaedics Inc [id number] 09/26/2032 [id number] / / [id number] Depuy Orthopaed[employer] Inc Articul/Alpesh 36mm Cementless Hip +5mm / Taper Head Femoral Latex Free [id number] - [id number] Implanted:Qty: 1 on 03/26/2024 by Lacy Curiel DO at [facility] Right: Hip Depuy Orthopaedics Inc [id number] 11/26/2028 [id number] / / [id number] Procedures Procedure Name Priority Date/Time Associated Diagnosis [...] LAB BLOOD ORDERABLES Final Resul t ASHOK [address] [facility] Department [place] [address] * Dexa Axial Skeleton Bone Density 1 [...] hip. Electronically signed by: Camille Rodriges M.D. [facility] Freddie Stanley DO IMG DXA PROCEDURES Final Result * Screening Mammogram Bilateral [place] (03/19/2020 11:32 AM CDT) Anatomical Region Laterality Modality Breast Bilateral Mammography 03/19/2020 1:54 PM CDT Impressions 03/19/2020 2:08 PM CDT BI-RADS Category 2, benign. Annual screening mammography. Electronically signed by: Camille Rodriges M.D. [facility] 03/19/2020 2:08 PM CDT Examination: Bilateral screening [...] Relevant to Health Maintenance Insurance [facility] MEDICARE ADVANTAGE [facility] [address]: [address] H[address] REF [facility] Address: [place] [address] [facility] MEDICARE ADVANTAGE [facility] Address: [place] [id number] [facility] MEDICARE ADVANTAGE [facility] Address: [facility] [address] [place] [address] Advance Directives For more information, please contact: [phone] * Full Code (Latest Code Status on File) Date Activated Date Inactivated Comments 03/26/2024 11:21 AM 03/27/2024 4:55 PM Care Teams Substation Operator Automatic Relationship Specialty Start Date End Date Baldo Bower MD PCP - General Family Practice 11/03/23 Lacy Curiel DO [address] [facility] [place] [address] Consulting Physician Orthopedic Surgery 03/27/24
== END 2024-12-28 06:49 | disposition home or self-care (01) ==
PROVIDERS: PCP Family Medicine; Visit Provider Nurse Practitioner Family
DX: K74.60 Unspecified cirrhosis of liver (principal)
CPT/HCPCS: 76705

== ENCOUNTER 2025-03-29 09:32 | Outpatient (CLI) | payer MEDICARE, SELFPAY ==
--- OUTSIDE RECORDS SUMMARY | 2025-03-27 06:00 | XMS_ITS | Continuity of Care Document ---
Author Organization [facility] Address [address] [place] [address] Phone Care Team Providers Care Cloth Printing Utility Worker Name Role Phone Abel ELLIS, FACC, Carlos Eduardo RUTHERFORD Unavailable Unava ilable Medications Medication Instructions Dosage Effective Dates (start - stop) Status Comments atenolol 25 mg tablet TAKE 1 TABLET BY MOUTH DAILY - Active lisinopril 10 mg tablet TAKE 1 TABLET BY MOUTH DAILY - Active valacyclovir 500 mg tablet - Active hydrochlorothiazide 12.5 mg tablet TAKE 1 TABLET BY MOUTH DAILY - Active tramadol 50 mg tablet - Acti ve meloxicam 7.5 mg tablet TAKE 1 TABLET BY MOUTH TWICE DAILY - Active rosuvastatin 20 mg tablet - Active metformin 500 mg tablet TAKE 1 TABLET BY MOUTH TWICE DAILY WITH THE MORNING AND EVENING MEAL - Active lorazepam 0.5 mg tablet - Ac tive pantoprazole 40 mg tablet,delayed release TAKE 1 TABLET BY MOUTH DAILY - Active prednisone 20 mg tablet TAKE 1 TABLET BY MOUTH DAILY - Active tamsulosin 0.4 mg capsule TAKE 1 CAPSULE BY MOUTH DAILY - Active aspirin 81 mg chewable tablet - Active docusate sodium 100 mg capsule TAKE 1 CAPSULE BY MOUTH TWICE DAILY - Active hydrocodone 7.5 mg-acetaminophen 325 mg tablet TAKE 1 TABLET BY MOUTH EVERY 8 HOURS FOR UP TO 21 DOSES NEEDED FOR PAIN - Active ondansetron 4 mg disintegrating tablet - Active Procedures Procedure Date Complex e/m visit add on OFFICE/OUTPATIENT VISIT, NEW ELECTROCARDIOGRAM, COMPLETE Advance Directives Directive Yes / No Effective Date File Name No Information Encounters Encounter Description Practice Location Reason(s) For Visit Diagnoses Date Provider Providers Copied on Encounter [facility], [address] [place] [address], [id number] , tel: [phone] TONYA Jim No Information 5 Abel Thibodeaux. [address] [facility], [address] [facility], [place], [place], [id number] , [place]. tel: [phone] Referring Provider: Carlos Eduardo Ordaz, [id number] [place] [address] Suite [facility], [place], [address] . tel:[phone] OFFICE/OUTPA TIENT VISIT, NEW [facility], [address] [place] [address], [id number] , tel: [phone] TONYA Jim Initial (chief complaint) Chest painDM type IIHypertensionHyperli pidemia 5 Abel Thibodeaux. [address] [facility], [address], [place], [place], [id number] , [place]. tel: [phone] Referring Provider: Baldo Bower, [address] [place] [address], [address]. tel:[phone] Family History Family Member Type Diagnosis Age At Onset No Information Payers Payer name Insurance type Covered constitution party ID Authoriza tion(s) [facility] MEDICARE ADVANTAGE ST 0003 MB [id number] Social History Type Description Quantity Date Captured Comments Sex Female Smoking Status No Information Chief Complaint And Reason For Visit No Information Reason For Referral Reason For Referral No Information Plan Of Treatment Date Type Action Status Appointment Isela Kendall BOOKED Future Order: Radiology Order Ec ho ([id number]), Ordered on: Ordered Future Order: Radiology Order SP ECT/Pharmacological 1 Day ([id number]), Ordered on: Ordered Future Order: Radiology Order MC T Monitor 14 Day ([id number]), Ordered on: Ordered History Of Present Illness Encounter Date Complaint History Of Prese nt Illness Initial Functional Status Date Functional Assessmen t No Information Instructions Date Instruction Additional Infor mation No Information Assessments Type Assessment Date No Information Patient Care Teams Name Effective Dates (start - stop) Status Members No Information
--- NOTE | ~2025-03-29 | CT_ITS ---
EXAMINATION: CT abdomen pelvis wo/w con DATE: 03/29/2025 10:16 INDICATION: Renal cyst. TECHNIQUE: Computed tomography (CT) of the abdomen and pelvis was performed without and with 100 mL Omnipaque 350 intravenous contrast. Automated exposure control and iterative reconstruction technique were employed. The dose-length product was 567.47 mGy-cm. COMPARISON: CT abdomen and pelvis 06/05/24 FINDINGS: The visualized portions of the lung bases demonstrate mild atelectasis. A calcified right lung nodule is consistent with old granulomatous disease. No pleural effusion. The heart size is normal. No pericardial effusion. The liver demonstrates surface nodularity, consistent with cirrhosis. There are changes of cholecystectomy. The spleen, pancreas, and adrenal glands are normal. There are cysts in the kidneys measuring up to 14 mm on the right. There is a 3 mm stone in right kidney. There are no dilated loops of bowel. The appendix is not visualized. There is a periumbilical portacaval shunt. There are no pathologically enlarged lymph nodes. There is no free intraperitoneal fluid. There is a total right hip arthroplasty. There is mild thoracic and lumbar spondylosis. IMPRESSION: 1. Benign cysts in the kidneys. 2. Cirrhosis of the liver with portal venous hypertension. Reviewed, dictated and finalized at location A.
--- OUTSIDE RECORDS SUMMARY | 2025-03-29 10:03 | XMS_ITS | Clinical Summary ---
Author Organization [facility] Address [address] [place] [address] Care Team Providers Care Artillery Maintenance Supervisor Name Role Phone Baldo Bower MD Primary Care Provider [phone] Lacy Curiel DO Unavailable Allergies Active Allergy Reactions Criticality Noted Date Comments Cephalexin Hives Medium 03/13/2024 Happened in 1974. Does not know if she has ever had Ancef. Penicillins Other (See comments),Anaphylaxi s High 12/01/2016 Massive hives, choked up, spent 36 hours in the ED, facial swelling, throat swelling, skin turned red. 1974 Sulfa (Sulfonamide Antibiotics) Shortness of breath,Anaphylaxis High 09/06/2018 Medications metFORMIN (GLUCOPHAGE) 500 mg [...] (two) times a day Med Name: MegaRed Warren-3 Krill oil Active meloxicam (MOBIC) 7.5 mg [...] Active Problems Problem Noted Date Diagnosed Date Witnessed seizure-like activity 03/21/2025 Overview (03/21/2025): one time Abdominal discomfort 03/21/2025 Acquired deviated nasal septum 03/21/2025 Acute abdominal pain 03/21/2025 Anemia 03/21/2025 Anxiety 03/21/2025 Benign essential hypertension 03/21/2025 Bladder spasms 03/21/2025 Cervical spine pain 03/21/2025 Chronic nonallergic rhinitis 03/21/2025 Cirrhosis 03/21/2025 Clavicle pain 03/21/2025 Decreased libido 03/21/2025 Diarrhea 03/21/2025 Early satiety 03/21/2025 Encounter for diagnostic col onoscopy due to change in bowel habits 03/21/2025 Epigastric abdominal pain 03/21/2025 Fatigue 03/21/2025 Gastroesophageal reflux 03/21/2025 Hematuria 03/21/2025 Hydroureter 03/21/2025 Hyperlipidemia 03/21/2025 IBS (irritable bowel syndrome) 03/21/2025 Insect bite 03/21/2025 Iron deficiency anemia 03/21/2025 Kidney stone 03/21/2025 Laryngopharyngeal reflux 03/21/2025 Nausea 03/21/2025 Overweight (BMI 25.0-29.9) 03/21/2025 Right rotator cuff tendinitis 03/21/2025 Right shoulder injury 03/21/2025 Rotator cuff tear 03/21/2025 Sinusitis 03/21/2025 Tear of right rotator cuff 03/21/2025 Trochanteric bursitis of both hips 03/21/2025 UTI symptoms 03/21/2025 Memory change 08/31/2024 Primary osteoarthritis of right hip 02/23/2024 Introital dyspareunia 09/06/2018 Diabetes mellitus 09/06/2018 Dyslipidemia 09/06/2018 Hypertension 09/06/2018 Tobacco dependence syndrome 09/06/2018 Abnormal mammogram 11/23/2016 Mass of breast 11/23/2016 Disorder of sacrococcygeal spine 03/19/2016 Overview (09/03/2016): Sacrococcygeal disorders, not elsewhere classified Piriformis syndrome 03/19/2016 Overview (09/03/2016): Piriformis syndrome, right Encounters Date Type Department Care Team Description 03/21/2025 10:45 AM CDT Office Visit [facility] Sports [facility] [facility] [address] [place] [id number] Lacy Curiel, Aftercare following right hip joint replacement surgery (Primary Dx); Sacroiliac joint pain; Spinal stenosis in cervical region 03/21/2025 10:15 AM CDT - 03/21/2025 11:59 PM CDT Hospital Encounter [facility] MOB 1 DIAG IMG [address] [place] [address] Aftercare following right hip joint replacement surgery [...] basal cell left leg 2010's Diabetes mellitus Osteoarthritis Skin cancer, basal cell 2013 LEFT [...] Used Date Smoking Tobacco: Former Cigarettes 1.5 18.8 S tarted: 1986 Passive Smoke Exposure: Past Smokeless Tobacco: Never Tobacco Cessation:Counseling Given: Not Answered [facility] Utilities Answer Date Recorded In the past 12 months has [facility], [place], oil, or water [employer] threatened to shut off services in your home? No 03/26/2024 Social Connection and Isolation Panel Answer Date Recorded In a typical week, how many times do you talk on the phone with family, friends, or neighbors? Three times a week 03/26/2024 How often do you get togethe r with friends or relatives? Three times a week 03/26/2024 How often do you attend [facility] or jain services? Never 03/26/2024 Do you belong to any clubs o r organizations such as jew groups, unions, fraternal or athletic groups, or [...] any time in the past 12 m [facility], were you homeless or living in a half-way (including now)? No 03/26/2024 Personal Safety Answer Date Recorded Have you ever been in or are you currently in a harmful physical or emotional relationship or is someone making you feel afraid or unsafe? 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 Gender Identity Not on file Sexual Orientation [...] 03/19/2020, 01/12/2018 Influenza Vaccine (#1) 2025 , 02/19/2020, 04/05/2019, Additional history exists Fall Risk Assessment 03/27/2025 03/27/2024 eGFR 03/27/2025 03/27/2024, 03/13/2024 DTaP/Tdap/Td Vaccine (2 - Td or Tdap) 06/05/2027 06/05/2017 Zoster Vaccine Completed 06/27/2018, 03/01/2018 Pneumococcal vaccine 65+ Completed 020, 02/19/2020, 06/05/2017 Medical Devices Implanted Type Area Event Sales Assistant Device Identifier Shelf Expiration Date Model / Serial / Lot [employer] Shell Acetabular Emsys Shl 3hole 48 [id number] - [id number] Implanted:Qty: 1 on 03/26/2024 by Lacy Curiel DO at [facility] Right: Hip [employer] [id number] 01/27/2034 [id number] / / [id number] [employer] Liner Acetabular Emsys Lnr Aox N 48x36 [id number] - [id number] Implanted:Qty: 1 on 03/26/2024 by Lacy Curiel DO at [facility] Right: Hip [employer] [id number] 12/27/2028 [id number] / / [id number] [employer] [place] 6.5mm 20mm Acetabular Cancellous Screw Bone Sterile 1217-20-500 - [id number] Implanted:Qty: 1 on 03/26/2024 by Lacy Curiel DO at [facility] Right: Hip [employer] [id number] 11/26/2033 1217--500 / / [id number] [employer] [place] 6.5mm 25mm Acetabular Cancellous Screw Bone Sterile 1217-25-500 - [id number] Implanted:Qty: 1 on 03/26/2024 by Lacy Curiel DO at [facility] Right: Hip [employer] [id number] 12/27/2033 1217--500 / / [id number] [employer] Stem Femoral Hip Porous Proximal Collared Actis 95mm Titanium Standard Offset Size 0 [id number] - [id number] Implanted:Qty: 1 on 03/26/2024 by Lacy Curiel DO at [facility] Right: Hip [employer] [id number] 09/26/2032 [id number] / / [id number] [employer] Articul/Alpesh 36mm Cementless Hip +5mm 12/14 [place] Femoral Latex Free [id number] - [id number] Implanted:Qty: 1 on 03/26/2024 by Lacy Curiel DO at [facility] Right: Hip [employer] [id number] 11/26/2028 [id number] / / [id number] Procedures Procedure Name Priority Date/Time Associated Diagnosis Comments XR HIP RIGHT W PELVIS 2 OR 3 VIEWS Schedule Routine, Read Routine (OP Routine) 03/21/2025 10:35 AM CDT Aftercare following right hip joint replacement surgery EGFR Routine 03/27/2024 5:32 AM CDT DEXA [...] Health Maintenance Results * XR Hip Right 2 or 3 Views W Pelvis (03/21/2025 10:35 AM CDT) Anatomical Region Laterality Modality Lower Extremities, Hip, Pelvis Right C omputed Radiography 03/21/2025 12:2 2 PM CDT Impressions 03/21/2025 12:22 PM CDT 1. Right total hip arthroplasty in near-anatomic alignment. Electronically signed by: Sam Rice M.D. Narrative 03/21/2025 12:22 PM CDT EXAMINATION: XR HIP RIGHT 2 OR 3 VIEWS W PELVIS HISTORY: Right hip pain. FINDINGS: 2 views submitted with comparison 06/19/2024. Right total hip arthroplasty is in near-anatomic alignment. No acute fracture or evidence of loosening. Mild left hip osteoarthritis. Procedure Note Sam Rice MD - 03/21/2025 EXAMINATION: XR HIP RIGHT 2 OR 3 VIEWS W PELVIS HISTORY: Right hip pain. FINDINGS: 2 views submitted with comparison 06/19/2024. Right total hip arthroplasty is in near-anatomic alignment. No acute fracture or evidence of loosening. Mild left hip osteoarthritis. IMPRESSION: 1. Right total hip arthroplasty in near-anatomic alignment. Electronically signed by: Sam Rice M.D. Lacy Curiel DO IMG XR PROCEDURES Final [...] LAB BLOOD ORDERABLES Final Resul t ASHOK [id number] [facility] [place] [address] * Dexa Axial Skeleton Bone [...] signed by: Camille Rodriges M.D. Freddie Stanley [facility] DXA PROCEDURES Final Result * Screening [...] examination has been subjected to R2/CAD analysis. Freddiedarian Stanley IMG MAMMO PROCEDURES Final Resul t from Last 3 Months or Most Recently Relevant to Health Maintenance Insurance [facility] MEDICARE ADVANTAGE Member Subscriber Plan / Payer (Ef fective 2023-Present) Name:Isela Kendall Relation to Subscriber:Self Name:Isela Kendall Payer ID:[id number] (NAIC) Type:[facility] MEDICARE Address: [address] MDCR HMO REF [facility] MEDICARE ADVANTAGE [facility] MEDICARE ADVANTAGE Advance Directives For more information, please contact: [phone] * Full Code (Latest Code Status on File) Date Activated Date Inactivated Comments 03/26/2024 11:21 AM 03/27/2024 4:55 PM Care Teams Artillery Maintenance Supervisor Relationship Specialty Start Date End Date Baldo Bower MD PCP - General Family Practice 11/03/23 Lacy Curiel DO [address] [place] [address] Consulting Physician Orthopedic Surgery 03/27/24
--- OUTSIDE RECORDS SUMMARY | 2025-03-29 10:03 | XMS_ITS | Clinical Summary ---
Author Organization [facility] Address [address] [place] [address] Care Team Providers Care Tomato Paste Maker Name Role Phone Unavailable Primary Care Provider [...] 1971 Mammogram Screening 1992 Pneumococcal Vaccine: 50+ Years (1 of 1 - PCV) 2002 Zoster Vaccines (1 of 2) 2002 Dexa Scan (General) 2017 COVID-19 Vaccine ( - 2024-2 6 season) 2025 Influenza Adult (#1) 2025 02/26/2014, 03/28/2012 RSV Immunization or 60+ Years (1 - 1-dose 75+ series) 2027 Hepatitis A Vaccines Aged Out No long er eligible based on patient's age to complete this topic Meningococcal B Vaccine Aged Out No l onger eligible based on patient's age to complete this topic Meningococcal Vaccine Aged Out No checo gerardo eligible based on patient's age to complete this topic RSV Immunizations Under 20 Months Aged Out No longer eligible b ased on patient's age to complete this topic
[2025-03-29 10:11] LABS: Estimated Glomerular Filt Rate > 60
== END 2025-03-29 09:33 | disposition home or self-care (01) ==
PROVIDERS: PCP Family Medicine; Visit Provider Urology
DX: N28.1 Cyst of kidney, acquired (principal); K74.60 Unspecified cirrhosis of liver
CPT/HCPCS: 74178; Q9967

== ENCOUNTER 2025-04-22 14:07 | Outpatient (CLI) | payer MEDICARE, SELFPAY ==
--- OUTSIDE RECORDS SUMMARY | 2025-04-22 07:00 | XMS_ITS | Continuity of Care Document ---
Author Organization [facility] Address [address] [place] [address] Phone Care Team Providers Care Still Tender Name Role Phone Abel ELLIS, FACC, KRISH, [...] No Longer Active tramadol 50 mg tablet No Longer Active rosuvastatin 20 mg tablet Ju No Longer Active lorazepam 0.5 mg tablet No Longer Active prednisone 20 mg tablet TAKE 1 TABLET BY MOUTH DAILY No Longer Active tamsulosin 0.4 mg capsule TAKE 1 CAPSULE BY MOUTH DAILY - No Longer Active aspirin 81 mg chewable tablet No Longer Active hydrocodone 7.5 mg-acetaminophen 325 mg tablet TAKE 1 TABLET BY MOUTH EVERY 8 HOURS FOR UP TO 21 DOSES NEEDED FOR PAIN No Longer Active ondansetron 4 mg disintegrating tablet No Longer Active aspirin 81 mg chewable tablet chew 1 tablet by oral route every day 81 MG - No Longer Active Procedures Procedure Date HT MUSCLE IMAGE SPECT, MULT CARDIOVASCULAR STRESS TEST Technetium TC 99m sestamibi Regadenoson injection TTE W/DOPPLER, COMPLETE Complex e/m visit add on OFFICE/OUTPATIENT VISIT, NEW ELECTROCARDIOGRAM, COMPLETE Advance Directives Directive Yes / No Effective Date File Name No Information Encounters Encounter Description Practice Location Reason(s) For Visit Diagnoses Date Provider Providers Copied on Encounter [facility], [facility] [place], [place], [id number] , [place] tel: [phone] [facility] [place] Initial (chief complaint) DM type IIHyperlipidemiaHyper tensionChest pain 5 Abel Thibodeaux. [id number] Bueno , [address], [id number] , [place]. tel: [phone] Referring Provider: [address] [place] [address], [address] . tel:[phone] [facility] , [address] [place] [address], [id number] , tel: [phone] [facility] [place] No Information 5 Abel Thibodeaux. [address] [place] [address], [address] [place] [address], [id number] , . tel: [phone] Referring Provider: Carlos Eduardo Ordaz, [address] [place] [address] [place] [address], [id number] . tel:[phone] [facility] , [address] [place] [address], [id number] , tel: [phone] [facility] No Information 5 Abel Thibodeaux. [address] [place] [address], [address] [place] [address], [id number] , . tel: [phone] Referring Provider: Carlos Edaurdo Ordaz, [address] [place] [address] [place] [address], [address] . tel:[phone] OFFICE/OUTPA TIENT VISIT, [facility] , [address] [place] [address], [id number] , tel: [phone] [facility] [place] Initial (chief complaint) Chest painDM type IIHypertensionHyperli pidemia 5 Abel Thibodeaux. [address] [place] [address], [address] [place] [address], [id number] , [place]. tel: [phone] Referring Provider: Baldo Bower, [address] [place], [address]. tel:[phone] Family History Family Member Type Diagnosis Age At Onset No Information Payers Payer name Insurance type Covered democrat ID Honey tovar(s) [employer]ARP MEDICARE ADVANTAGE ST 0003 MB [id number] Social History Type Description Quantity Date Captured [...] Future Order: Radiology Order Ec ho (ACS [id number]), Ordered on: Ordered Future Order: Radiology Order SP ECT/Pharmacological 1 Day ([id number]), Ordered on: Ordered Future Order: Radiology Order MC T Monitor 14 Day ([id number]), Ordered on: Ordered History Of Present Illness Encounter Date Complaint History Of Prese nt Illness Initial Initial Functional Status Date Functional Assessmen t No Information Instructions Date Instruction Additional Infor mation No Information Assessments Type Assessment Date assessment DM type II assessment Hyperlipidemia assessment Hypertension assessment Chest pain Patient Care Teams Name Effective Dates (start - stop) Status Members No Information
[2025-04-22 15:26] LABS: Hematocrit 41.9 % (37.0-47.0); Hemoglobin 13.9 g/dL (12.0-15.0); Mean Corpuscular HGB Conc 33.2 g/dl (32-36); Mean Corpuscular Hemoglobin 34.0 pg (26-34); Mean Corpuscular Volume 102.4 fl (80-100); Platelet Count Result 193 k/mm3 (150-375); Red Blood Count 4.09 M/mm3 (4.2-5.4); White Blood Count 7.5 K/mm3 (4.5-10.0)
[2025-04-22 15:42] LABS: Alanine Aminotransferase 29 U/L (6-35); Albumin Level 4.4 g/dL (3.5-5.1); Alkaline Phosphatase 56 U/L (38-126); Anion Gap 8 mmol/L (4-12); Aspartate Amino Transferase 30 U/L (14-36); Bilirubin,Total 0.3 mg/dL (0.2-1.3); Blood Urea Nitrogen 20 mg/dL (7-17); Calcium 9.9 mg/dL (8.4-10.2); Carbon Dioxide 25 mmol/L (22-30); Chloride 103 mmol/L (98-107); Estimated Glomerular Filt Rate > 60; Glucose 104 mg/dL (65-110); Potassium 3.9 mmol/L (3.4-5.0); Sodium 136 mmol/L (137-145); Total Protein 7.3 g/dL (6.3-8.2)
[2025-04-22 15:45] LABS: Hemoglobin A1C 6.1 % (<5.7)
--- OUTSIDE RECORDS SUMMARY | 2025-04-22 16:47 | XMS_ITS | Clinical Summary ---
Author Organization [facility] Address [address] [place] [address] Care Team Providers Care Inspector Structural Bonding Name Role Phone Unavailable Primary Care Provider [...]
--- OUTSIDE RECORDS SUMMARY | 2025-04-22 16:47 | XMS_ITS | Clinical Summary ---
Author Organization 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
--- OUTSIDE RECORDS SUMMARY | 2025-04-22 16:47 | XMS_ITS | Clinical Summary ---
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 Mechanic Name Role Phone Baldo Bower MD Primary Care Provider [phone] Lacy Curiel DO Unavailable [phone] Allergies Active Allergy Reactions Criticality Noted [...] (two) times a day Med Name: MegaRed [place]-3 Krill oil Active meloxicam (MOBIC) 7.5 mg [...] dental procedures and cleanings) 2 capsule Active Hospital, Clinic, or Other Facility Administered Medication Ordered Dose Route Frequency Start Date End Date Status lidocaine (XYLOCAINE) 10 mg/mL (1 %) injection 4 mLIndications:Admini stration of Local Anesthesia 4 mL One-Time Injection 04/01/2025 04/01/2025 Ended methylPREDNISolone acetate (DEPO-medrol) injection 80 mgIndications:Myofas cial pain syndrome of lumbar spine 80 mg One-Time Injection 04/01/2025 04/01/2025 Ended Active Problems Problem Noted Date Diagnosed Date [...] Encounters Date Type Department Care Team Description 04/17/2025 10:30 AM POOL FINISHER Office Visit [facility] Sports Medicine and Primary Care at [address] [address] Sam Jin DO Sacroiliitis (Primary Dx) 04/02/2025 Orders Only [facility] Orthopedics and Sports Medicine [address] [place] [phone] ProviderLynne MD 04/01/2025 12:21 PM POOL FINISHER - 04/01/2025 11:59 PM POOL FINISHER Hospital Encounter [facility] Di[facility] Imaging [address] [place] [address] Chronic bilateral low back pain without sciatica Discharge Disposition: Discharge to home or self care 04/01/2025 11:02 AM POOL FINISHER - 04/01/2025 11:59 PM POOL FINISHER Hospital Encounter [facility] Diag Imaging [address] [place] [address] Chronic right SI joint pain Discharge Disposition: Discharge to home or self care 04/01/2025 11:00 AM POOL FINISHER Office Visit [facility] Orthopedics and Sports Medicine [address] [place] [phone] Hugh Molina, CIARAN Sacrocoxalgia of right side of sacrum; Chronic bilateral low back pain without sciatica; Lumbar spondylosis, mild/moderate diffuse; Degeneration of intervertebral disc of lumbar region with discogenic back pain and lower extremity pain; Anterolisthesis of lumbar spine, trace grade 1 L4 on L5; Chronic cervical radiculopathy, right; Arthropathy of cervical facet joint; Degenerative disc disease, cervical, advanced C4 through C7; Anterolisthesis of cervical spine, 2 mm C2 over C3; Myofascial pain syndrome of lumbar spine 03/21/2025 10:45 AM CDT Office Visit [facility] Orthopedics and Sports Medicine [facility] [address] [place] [address] Lacy Curiel, Aftercare following right hip joint replacement surgery (Primary Dx); Sacroiliac joint pain; Spinal stenosis in cervical region 03/21/2025 10:15 AM CDT - 03/21/2025 11:59 PM CDT Hospital Encounter [facility] [address] [place] [address] Aftercare following right hip joint replacement surgery [...] basal cell left leg 2009's Diabetes mellitus Osteoarthritis Skin cancer, basal cell 2012 LEFT [...] Used Date Smoking Tobacco: Former Cigarettes 1.5 18.9 S tarted: 1986 Passive Smoke Exposure: Past Smokeless Tobacco: Never Tobacco Cessation:Counseling Given: Not Answered [facility] Utilities Answer Date Recorded In the past 12 months has [employer], gas, oil, or water [employer] threatened to shut off services in your home? No 03/26/2024 Social Connection and Isolation Panel Answer Date Recorded In a typical week, how many times do you talk on the phone with family, friends, or neighbors? Three times a week 03/26/2024 How often do you get togethe r with friends or relatives? Three times a week 03/26/2024 How often do you attend [facility] or yarsani services? Never 03/26/2024 Do you belong to [...] time in the past 12 m [facility], were you homeless or living in [...] on file Legal Sex Female 1:32 PM POOL FINISHER Gender Identity Not on file Sexual Orientation Not on file Obstetrics History Para Term AB IAB SAB Ectopic Multiple Livin g Live Births 2 2 2 Date Outcome GA Total Labor Labor/2nd/3rd Weight Sex Type Anes PTL Adrianne A1 A5 Name Clin Term Term Last Filed Vital Signs Vital Sign Reading Time Taken Comments Blood Pressure 110/73 04/17/2025 10:23 AM POOL FINISHER Pulse 63 04/17/2025 10:23 AM POOL FINISHER Temperature 36.6 C (97.9 F) 03/27/2024 11:52 AM CDT Respiratory Rate 18 03/27/2024 11:52 AM CDT Oxygen Saturation 96% 03/27/2024 11:52 AM CDT Inhaled Oxygen Concentration - - Weight 60.8 kg (134 lb) 04/17/2025 10:23 AM POOL FINISHER Height 160 cm (5' 3) 04/17/2025 10:23 AM POOL FINISHER Body Mass Index 23.74 04/17/2025 10:23 AM POOL FINISHER Plan of Treatment Health Maintenance Due Date [...] 02/19/2020, 06/05/2017 Medical Devices Implanted Type Area Auto Servicer Device Identifier Shelf Expiration Date Model / Serial / Lot [employer] Shell Acetabular Emsys Shl 3hole 48 [id number] - [id number] Implanted:Qty: 1 on 03/26/2024 by Lacy Curiel DO at [facility] Right: Hip [employer] [id number] 01/27/2034 [id number] / / [id number] [employer] Liner Acetabular Emsys Lnr Aox N 48x36 [id number] - [id number] Implanted:Qty: 1 on 03/26/2024 by Lacy Curiel DO at [facility] Right: Hip [employer] [id number] 12/27/2028 [id number] / / [id number] [employer] [place] 6.5mm 20mm Acetabular Cancellous Screw Bone Sterile 1217-20-500 - [id number] Implanted:Qty: 1 on 03/26/2024 by Lacy Curiel DO at [facility] Right: Hip [employer] [id number] 11/26/2033 1217--500 / / [id number] [employer] [place] 6.5mm 25mm Acetabular Cancellous Screw Bone Sterile 1217-25-500 - [id number] Implanted:Qty: 1 on 03/26/2024 by Lacy Curiel DO at [facility] Right: Hip [employer] [id number] 12/27/2033 1217--500 / / [id number] [employer] Stem Femoral Hip Porous Proximal Collared Actis 95mm Titanium Standard Offset Size 0 [id number] - [id number] Implanted:Qty: 1 on 03/26/2024 by Lacy Curiel DO at [facility] Right: Hip [employer] [id number] 09/26/2032 [id number] / / [id number] [employer] Articul/Alpesh 36mm Cementless Hip +5mm 12/14 [place] Femoral Latex Free [id number] - [id number] Implanted:Qty: 1 on 03/26/2024 by Lacy Curiel DO at [facility] Right: Hip [employer] [id number] 11/26/2028 [id number] / / [id number] Procedures Procedure Name Priority Date/Time Associated Diagnosis Comments XR SPINE CERVICAL COMPLETE 4 OR 5 VW Schedule Routine, Read Routine (OP Routine) 04/02/2025 9:37 AM POOL FINISHER XR SPINE LUMBAR W BENDING 6 OR MORE VIEWS Schedule Routine, Read Routine (OP Routine) 04/01/2025 12:34 PM POOL FINISHER Chronic bilateral low back pain without sciatica XR SACRUM COCCYX 2 OR MORE VIEWS Schedule Routine, Read Routine (OP Routine) 04/01/2025 11:09 AM POOL FINISHER Chronic right SI joint pain [place] INJECTION SINGLE/PARK GUIDE TRIGGER POINT 1/2 MUSCLES Routine 04/01/2025 11:00 AM POOL FINISHER Myofascial pain syndrome of lumbar spine XR HIP RIGHT W PELVIS 2 OR [...] Relevant to Health Maintenance Results * XR Spine Cervical Complete 4 or 5 Views (04/02/2025 9:37 AM POOL FINISHER) Anatomical Region Laterality Modality Spine N/A Radiographic Liliya ging us Historical Provider MD BORJA XR PROCEDURES Final R esult * XR Spine Lumbar W Bending 6 or More Views (04/01/2025 12:34 PM POOL FINISHER) Anatomical Region Laterality Modality Spine N/A Computed Radiogr aphy 04/01/2025 12:4 3 PM POOL FINISHER Impressions 04/01/2025 12:43 PM POOL FINISHER 1. No acute osseous abnormality. 2. Trace grade 1 anterolisthesis of L4 on L5 in the neutral position is unchanged with flexion or extension. 3. Mild to moderate diffuse lumbar spondylosis. Electronically signed by: Kj Lyman M.D. Narrative 04/01/2025 12:43 PM POOL FINISHER EXAM DESCRIPTION: XR SPINE LUMBAR W BENDING 6 OR MORE VIEWS REASON FOR STUDY: Chronic bilateral low back pain. TECHNIQUE: AP, lateral, lateral flexion, lateral extension, right posterior oblique, left posterior oblique radiographic view(s) of the lumbar spine COMPARISON: None FINDINGS: ALIGNMENT: Trace grade 1 anterolisthesis of L4 on L5 in the neutral position. This is unchanged with flexion and extension. VERTEBRAE: No acute fracture. Mild to moderate diffuse lumbar spondylosis. No definite spondylolysis on the oblique projections. DISCS: Disc height well-maintained. SOFT TISSUES: Surgical clips in the right upper abdomen. Right hip prosthesis is only partially included. Procedure Note Kj Lyman MD - 04/01/2025 EXAM DESCRIPTION: XR SPINE LUMBAR W BENDING 6 OR MORE VIEWS REASON FOR STUDY: Chronic bilateral low back pain. TECHNIQUE: AP, lateral, lateral flexion, lateral extension, right posterior oblique, left posterior oblique radiographic view(s) of the lumbar spine COMPARISON: None FINDINGS: ALIGNMENT: Trace grade 1 anterolisthesis of L4 on L5 in the neutral position. This is unchanged with flexion and extension. VERTEBRAE: No acute fracture. Mild to moderate diffuse lumbar spondylosis. No definite spondylolysis on the oblique projections. DISCS: Disc height well-maintained. SOFT TISSUES: Surgical clips in the right upper abdomen. Right hip prosthesis is only partially included. IMPRESSION: 1. No acute osseous abnormality. 2. Trace grade 1 anterolisthesis of L4 on L5 in the neutral position is unchanged with flexion or extension. 3. Mild to moderate diffuse lumbar spondylosis. Electronically signed by: Kj Lyman M.D. Hugh Molina CLEANING STAFF SUPERVISOR IMG XR PROCEDURES Final Res ult * XR Sacrum Coccyx 2 or More Views (04/01/2025 11:09 AM POOL FINISHER) Anatomical Region Laterality Modality Pelvis, Body N/A Computed Radiogr aphy 04/01/2025 12:0 4 PM POOL FINISHER Impressions 04/01/2025 12:04 PM POOL FINISHER 1. Mild osteopenia without definite evidence acute osseous abnormality involving the sacrum and coccyx. Electronically signed by: Lynda Coker D.O. Narrative 04/01/2025 12:04 PM POOL FINISHER STUDY DESCRIPTION: XR SACRUM COCCYX 2 OR MORE VIEWS ORDERING HEALTHCARE PROVIDER: HUGH MOLINA CLINICAL INDICATIONS: right si joint pain. Increased right SI joint pain for 6 months. No known injury. COMPARISON: 03/21/2025 TECHNIQUE: 3 radiographic views of the sacrum and coccyx. FINDINGS: There is mild osteopenia. There is no definite evidence acute fracture or subluxation involving the sacrum and coccyx. There are mild degenerative changes of bilateral hips with joint space narrowing and minimal sclerosis. There are degenerative changes of the visualized lower lumbar spine. There are degenerative changes left hip with joint space narrowing and mild sclerosis. Postsurgical changes right hip arthroplasty are partially visualized. Procedure Note Lynda Coker DO - 04/01/2025 STUDY DESCRIPTION: XR SACRUM COCCYX 2 OR MORE VIEWS ORDERING HEALTHCARE PROVIDER: HUGH MOLINA CLINICAL INDICATIONS: right si joint pain. Increased right SI joint pain for 6 months. No known injury. COMPARISON: 03/21/2025 TECHNIQUE: 3 radiographic views of the sacrum and coccyx. FINDINGS: There is mild osteopenia. There is no definite evidence acute fracture or subluxation involving the sacrum and coccyx. There are mild degenerative changes of bilateral hips with joint space narrowing and minimal sclerosis. There are degenerative changes of the visualized lower lumbar spine. There are degenerative changes left hip with joint space narrowing and mild sclerosis. Postsurgical changes right hip arthroplasty are partially visualized. IMPRESSION: 1. Mild osteopenia without definite evidence acute osseous abnormality involving the sacrum and coccyx. Electronically signed by: Lynda Coker D.O. Hugh Molina NP IMG XR PROCEDURES Final Res ult * AZ INJECTION SINGLE/PARK GUIDE TRIGGER POINT 1/2 MUSCLES (04/01/2025 11:00 AM POOL FINISHER) Narrative Hugh Molina NP - 04/01/2025 11:00 AM POOL FINISHER Hugh Molina NP 04/02/2025 10:11 AM Trigger Point Injection Performed by: Hugh Molina NP Authorized by: Hugh Molina NP Consent Given by: Patient Site marked: the procedure site was marked Timeout: prior to procedure the correct patient, procedure, and site was verified Consent obtained:: Verbal Risks discussed, including, but not limited to:: Pain and repeat procedure Alternatives discussed:: Alternative treatment, delayed treatment and no treatment Site/side marked: Yes Indications: Myalgia Location: L lumbar paraspinal and R lumbar paraspinal Local anesthetic: Ethyl chloride spray Ultrasound guidance: No Needle size: 22 G Number of muscles: 1 or 2 Approach: Posterior Medications: 4 mL lidocaine 10 mg/mL (1 %); 80 mg methylPREDNISolone acetate 40 mg/mL Patient tolerance: Patient tolerated the procedure well with no immediate complications Hugh Molina CLEANING STAFF SUPERVISOR IN CLINIC/BEDSIDE ORDERABLE S Final Result * XR Hip Right 2 [...] BARRY LAB BLOOD ORDERABLES Final Resul t [facility] [address] [facility] Department [place] [address] * Dexa Axial Skeleton Bone [...] hip. Electronically signed by: Camille Rodriges M.D. [facility]ED[facility] Final Result * Screening [...] Most Recently Relevant to Health Maintenance Insurance [facility] MEDICARE ADVANTAGE [facility] Address: [place] [id number] HMO REF [facility]ICARE Address: [facility] [address] [place] [address] UHC MEDICARE ADVANTAGE [facility] MEDICARE ADVANTAGE [facility] MEDICARE Address: [address] [address] [place] [address] Advance Directives For more information, please contact: [phone] * Full Code (Latest Code Status on File) Date Activated Date Inactivated Comments 03/26/2024 11:21 AM 03/27/2024 4:55 PM Care Teams Heavy Equipment Engine Mechanic Relationship Specialty Start Date End Date Baldo Bower MD PCP - General Family Practice 11/03/23 Lacy Curiel DO [address] [place] [address] Consulting Physician Orthopedic Surgery 03/27/24
== END 2025-04-22 14:08 | disposition home or self-care (01) ==
PROVIDERS: PCP Family Medicine; Visit Provider Family Medicine
DX: F41.9 Anxiety disorder, unspecified (principal); Z79.899 Other long term (current) drug therapy; I10 Essential (primary) hypertension; E78.5 Hyperlipidemia, unspecified; E11.9 Type 2 diabetes mellitus without complications
CPT/HCPCS: 36415; 80053; 83036; 85027

== ENCOUNTER 2025-05-12 08:27 | Outpatient (CLI) | payer MEDICARE, SELFPAY ==
--- OUTSIDE RECORDS SUMMARY | 2025-04-22 07:00 | XMS_ITS | Continuity of Care Document ---
Author Organization [facility] Address [address] [place] [address] Phone Care Team Providers Care Home Health Scheduler Name Role Phone Abel ELLIS, FACC, KRISH, Carlos Eduardo Unavailable Unava ilable Allergies, Adverse Reactions, Alerts Substance Reaction Status Criticality CEPHALEXIN MONOHYDRATE Active No In formation Sulfa (Sulfonamide Antibiotics) Active No Information Penicillins Active No Information Medications Medication Instructions Dosage Effective Dates (start - stop) Status Comments lisinopril 10 mg tablet TAKE 1 TABLET BY MOUTH DAILY - Active atenolol 25 mg tablet TAKE 1 TABLET BY MOUTH DAILY - Active meloxicam 7.5 mg tablet TAKE 1 TABLET BY MOUTH TWICE DAILY - Active metformin 500 mg tablet TAKE 1 TABLET BY MOUTH TWICE DAILY WITH THE MORNING AND EVENING MEAL - Active pantoprazole 40 mg tablet,delayed release TAKE 1 TABLET BY MOUTH DAILY - Active docusate sodium 100 mg capsule TAKE 1 CAPSULE BY MOUTH TWICE DAILY - Active tramadol 50 mg tablet take 1 tablet by oral route every 6 hours as needed as needed 50 MG - Active rosuvastatin 20 mg tablet take 1 tablet by oral route every day 20 MG - Active lorazepam 0.5 mg tablet take 2 tablet by oral route 3 times every day as needed as needed 1 MG - Active valacyclovir 500 mg tablet - No Longer Active hydrochlorothiazide 12.5 mg tablet TAKE 1 TABLET BY MOUTH DAILY - No Longer Active tramadol 50 mg tablet - No Longer Active rosuvastatin 20 mg tablet Ju - No Longer Active lorazepam 0.5 mg tablet - No Longer Active prednisone 20 mg tablet TAKE 1 TABLET BY MOUTH DAILY - No Longer Active tamsulosin 0.4 mg capsule TAKE 1 CAPSULE BY MOUTH DAILY - No Longer Active ondansetron 4 mg disintegrating tablet No Longer Active hydrocodone 7.5 mg-acetaminophen 325 mg tablet TAKE 1 TABLET BY MOUTH EVERY 8 HOURS FOR UP TO 21 DOSES NEEDED FOR PAIN - No Longer Active aspirin 81 mg chewable tablet No Longer Active aspirin 81 mg chewable tablet chew 1 tablet by oral route every day 81 MG - No Longer Active Procedures Procedure Date Complex e/m visit add on OFFICE/OUTPATIENT VISIT, EST REMOTE 30 DAY ECG TECH SUPP REMOTE 30 DAY ECG REV/REPORT HT MUSCLE IMAGE SPECT, MULT CARDIOVASCULAR STRESS TEST Technetium TC 99m sestamibi Regadenoson injection TTE W/DOPPLER, COMPLETE Complex e/m visit add on OFFICE/OUTPATIENT VISIT, NEW ELECTROCARDIOGRAM, COMPLETE Advance Directives Directive Yes / No Effective Date File Name No Information Encounters Encounter Description Practice Location Reason(s) For Visit Diagnoses Date Provider Providers Copied on Encounter OFFICE/OUTPA TIENT VISIT, EST [facility], [address] [facility], [place], [place], [id number] , [place] tel:[phone] [facility] [place] Initial (chief complaint) DM type IIHyperlipidemiaHyper tensionChest painPalpitations 5 Abel Thibodeaux. [address] [facility], [address] [place] [address], [id number] , [place]. tel: [phone] Referring Provider: Carlos Eduardo Ordaz, [address] [facility] [address] [place] [address], [address] . tel:[phone] [facility] , [address] [place] [address], [id number] , tel: [phone] [facility] [place] No Information 5 Abel Thibodeaux. [address] [facility], [address] [place] [address], [id number] , [place]. tel: [phone] Referring Provider: Carlos Eduardo Ordaz, [address] [place] [address] [place] [address], [address] . tel:[phone] [facility] , [address] [place] [address], [id number] , tel: [phone] [facility] [place] No Information 5 Abel Thibodeaux. [address] [facility], [address] [place] [address], [id number] , [place]. tel: [phone] Referring Provider: Carlos Eduardo Ordaz, [address] [facility] [address] [place] [address], [address] . tel:[phone] [facility] , [address] [place] [address], [id number] , tel: [phone] [facility] [place] No Information 5 Abel Thibodeaux. [address] [facility], [address] [place] [address], [id number] , [place]. tel: [phone] Referring Provider: Carlos Eduardo Ordaz, [address] [facility] [address] [place] [address], [address] . tel:[phone] OFFICE/OUTPA TIENT VISIT, [facility] , [address] [place] [address], [id number] , tel: [phone] [facility] [place] Initial (chief complaint) Chest painDM type IIHypertensionHyperli pidemia Abel Thibodeaux. [address] , [address], [place], [place], [id number] , [place]. tel: [phone] Referring Provider: Baldo Bower, [address] [place], [address]. tel:[phone] Family History Family Member Type Diagnosis Age At Onset No Information Payers Payer name Insurance type Covered libertarian ID Honey tovar(s) [facility] MEDICARE ADVANTAGE ST 0003 [id number] Social History Type Description Quantity Date Captured Comments Alcohol Use Details No Caffeine Use Details No Tobacco Use Status Current non-smoker Smoking Status Never smoker Non-Smoking Tobacco Use Details : No Details Available : No Details Available Sex Female Vital Signs Date / Time: Height Weight BMI Pulse Rate Blood Pressure Temperature Respiratory Rate Body Surface Area Head Circumference Head Circ. Percentile Wt./Oz. Percentile BMI percentile Pulse Ox Inhaled Ox 12:40 PM 62.00 in 62.414 kg (137.60 lbs) 25.1 7 kg/m eter (2) 73 /min 114/85 mm[Hg] 12 /min 1.65 meter(2) 99 % 21 % Chief Complaint And Reason For Visit From encounter dated '04/22/2025 13:00'. Initial (chief complaint) Reason For Referral Reason For Referral No Information Plan Of Treatment Date Type Action Status Future Order: Radiology Order Ec ho (ACS [id number]), Ordered on: Ordered Future Order: Radiology Order SP ECT/Pharmacological 1 Day ([id number]), Ordered on: Ordered Future Order: Radiology Order MC T Monitor 14 Day ([id number]), Ordered on: Ordered History Of Present Illness Encounter Date Complaint History Of Prese nt Illness Initial Initial Functional Status Date Functional Assessmen t No Information Instructions Date Instruction Additional Infor mation No Information Assessments Type Assessment Date assessment DM type II assessment Hyperlipidemia assessment Hypertension assessment Chest pain assessment Palpitations Patient Care Teams Name Effective Dates (start - stop) Status Members No Information
--- NOTE | ~2025-05-12 | MR_ITS ---
EXAMINATION: MR lumbar spine wo con DATE: 05/12/2025 10:01 INDICATION: Low back pain without sciatica. TECHNIQUE: Magnetic resonance imaging (MRI) of the lumbar spine was performed without intravenous contrast. COMPARISON: None FINDINGS: There is 8 degrees levocurvature of lumbar spine. There is 3 mm anterolisthesis of L4 on L5. Vertebral body heights are normal. There is mildly decreased disc height at L1-L2. The distal spinal cord signal intensity is normal. The conus medullaris is at L2. The following disc levels are speci fically discussed: L1-L2: The disc is bulging. There is mild bilateral facet joint osteoarthritis. There is mild bilateral neural foraminal stenosis. There is mild central canal stenosis. L2-L3: The disc is bulging. There is moderate bilateral facet joint osteoarthritis. There is mild bilateral neural foraminal stenosis. There is mild central canal stenosis. L3-L4: The disc is bulging. There is severe bilateral facet joint osteoarthritis. There is mild bilateral neural foraminal stenosis. There is mild central canal stenosis. L4-L5: The disc is bulging. There is severe bilateral facet joint osteoarthritis. There is mild bilateral neural foraminal stenosis. There is no central canal stenosis. L5-S1: The disc does not extend beyond the endplate margin. There is severe bilateral facet joint osteoarthritis. There is mild bilateral neural foraminal stenosis. There is no central canal stenosis. IMPRESSION: 1. Mild lumbar spondylosis. Reviewed, dictated and finalized at location E. WELDER IMPRESSION: 1. Mild lumbar spondylosis.
--- NOTE | ~2025-05-12 | MR_ITS ---
EXAMINATION: MR cervical spine wo con DATE: 05/12/2025 10:01 INDICATION: Chronic cervical radiculopathy. TECHNIQUE: Magnetic resonance imaging (MRI) of the cervical spine was performed without intravenous contrast. COMPARISON: None FINDINGS: There is kyphosis of cervical spine. Vertebral body heights are normal. There is mildly decreased disc height at C3-C4, moderately decreased disc height at C5-C6, and severely decreased disc height at C6-C7. There is 2 mm anterolisthesis of C7 on T1. The spinal cord signal intensity is normal. The following disc levels are specifically discussed: C2-C3: There is a central protrusion. There is no uncovertebral joint osteoarthritis. There is severe bilateral facet joint osteoarthritis. There is mild left neural foraminal stenosis. There is mild central canal stenosis. C3-C4: The disc is bulging. There is moderate bilateral uncovertebral joint osteoarthritis. There is severe bilateral facet joint osteoarthritis. There is moderate bilateral neural foraminal stenosis. There is mild central canal stenosis with ventral indentation of the spinal cord. C4-C5: The disc is bulging. There is severe right and moderate left uncovertebral joint osteoarthritis. There is mild right and severe left facet joint osteoarthritis. There is mild bilateral neural foraminal stenosis. There is mild central canal stenosis with ventral indentation of the spinal cord. C5-C6: The disc is bulging. There is severe bilateral uncovertebral joint osteoarthritis. There is moderate bilateral facet joint osteoarthritis. There is moderate bilateral neural foraminal stenosis. There is mild central canal stenosis with ventral indentation of the spinal cord. C6-C7: The disc is bulging. There is severe bilateral uncovertebral joint osteoarthritis. There is moderate right and severe left facet joint osteoarthritis. There is moderate bilateral neural foraminal stenosis. There is moderate central canal stenosis with ventral and dorsal indentation of the spinal cord. C7-T1: The disc does not extend beyond the endplate margin. There is no uncovertebral joint osteoarthritis. There is severe bilateral facet joint osteoarthritis. There is mild bilateral neural foraminal stenosis. There is no central canal stenosis. IMPRESSION: 1. Severe cervical spondylosis. Reviewed, dictated and finalized at location E. [employer]
--- OUTSIDE RECORDS SUMMARY | 2025-05-12 08:31 | XMS_ITS | Clinical Summary ---
Author Organization [facility] Address [address] [place] [address] Phone Care Team Providers Care Materials Handler Name Role Phone Unavailable Primary Care Provider Unavailabl e Encounters Date Type Department Care Team Description 04/01/2025 Abstract [facility] Gastroenterology [address] [facility] [address] [place] [address] Provider, Abstract from Last 3 Months Social History Tobacco Use Types Packs/Day Years Used Date Smoking Tobacco: Never Assessed Comments Unknown Sex and Gender Information Value Date Recorded Sex Assigned at Not on file Legal Sex Female 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
--- OUTSIDE RECORDS SUMMARY | 2025-05-12 08:31 | XMS_ITS | Clinical Summary ---
Author Organization [facility] Address [address] [place] [address] Care Team Providers Care Clinical Microbiologist Name Role Phone Unavailable Primary Care Provider [...]
== END 2025-05-12 08:28 | disposition home or self-care (01) ==
PROVIDERS: PCP Family Medicine; Visit Provider Nurse Practitioner
DX: M54.12 Radiculopathy, cervical region (principal); M47.812 Spondylosis without myelopathy or radiculopathy, cervical region; M50.30 Other cervical disc degeneration, unspecified cervical region; M43.12 Spondylolisthesis, cervical region; M54.50 Low back pain, unspecified; G89.29 Other chronic pain; M43.16 Spondylolisthesis, lumbar region
CPT/HCPCS: 72141; 72148